=== PATIENT | male | born 1945 | race Caucasian/White ===

== ENCOUNTER 2018-02-13 09:59 | Emergency (ER) | payer OTHER ==
[2018-02-13] MEDS ORDERED: NA CHLORIDE 0.9% 1,000 ML ONE (10:34)
[2018-02-13 11:00] LABS: Absolute Lymphocytes (CBC) 1.5 K/uL (0.7-4.9); Absolute Monocytes 0.6 K/uL (0.1-1.3); Absolute Neutrophil 5.6 K/uL (1.8-8.0); Eosinophils % 0.6 % (0-4.4); Hematocrit 33.8 % (39.6-49.0); Lymphocytes % 19.5 % (15.3-44.8); MCV 90.4 fL (80-100); MPV 6.6 fL (7.6-11.3); Monocytes % 7.8 % (3.3-12.3); RBC Red Blood Cell Count 3.74 M/uL (4.33-5.43)
[2018-02-13 11:01] LABS: Protime INR 1.34
--- NOTE | 2018-02-13 11:07 | RAD REPORT ---
EXAM DESCRIPTION: RAD - Chest Single View - 02/13/2018 10:51 am CLINICAL HISTORY: CHEST PAIN Chest pain. COMPARISON: Chest Single View dated 02/16/2016; CHEST SINGLE VIEW dated 07/28/2014; CHEST SINGLE VIEW dated 07/12/2014; CHEST SINGLE VIEW dated 04/29/2013 FINDINGS: Portable technique limits examination quality. A large opacity present left upper lobe which may represent a mass or infiltrate. The heart is normal in size. No displaced fractures.CT chest recommended.
[2018-02-13 11:14] LABS: ALT/SGPT 23 U/L (12-78); AST/SGOT 26 U/L (15-37); Albumin 2.5 g/dL (3.4-5.0); Alkaline Phosphatase 117 U/L (45-117); BUN Blood Urea Nitrogen 23 mg/dL (7-18); Bicarbonate 27 mmol/L (21-32); Bilirubin Direct 0.3 mg/dL (0-0.2); Bilirubin Total 0.6 mg/dL (0.2-1.0); Glucose Level 79 mg/dL (74-106); Lipase 66 U/L (73-393); Magnesium 2.5 mg/dL (1.8-2.4); NT PRO-BNP 496 pg/mL (<125); Potassium 4.3 mmol/L (3.5-5.1); Protein, Total 7.4 g/dL (6.4-8.2); Sodium Level 139 mmol/L (136-145); Troponin (Emerg Dept Use Only) < 0.02 ng/mL (0.0-0.045)
[2018-02-13 11:41] LABS: Anisocytosis 2+; Blood Morphology Comment NOTED (NOT SEEN); Platelet Estimate ADEQ; Polychromasia SLIGHT; Urine White Blood Cell Casts OK
--- NOTE | 2018-02-13 12:03 | RAD REPORT ---
EXAM DESCRIPTION: CT - Chest Abd Pelvis Wo Con - 02/13/2018 11:37 am CLINICAL HISTORY: Chest and abdomen pain. Abdominal pain, IV only COMPARISON: Chest Single View dated 02/13/2018; Abdomen Pelvis Wo Contrast dated 02/16/2016; Chest Single View dated 02/16/2016 TECHNIQUE: A limited noncontrast study was performed. All CT scans are performed using dose optimization technique as appropriate and may include automated exposure control or mA/KV adjustment according to patient size. FINDINGS: Emphysematous changes are present throughout the lungs. Airspace consolidation is seen in the posterior left upper lobe with visible air bronchograms. A rounded masslike component is seen in the superior segment left lower lobe without air bronchograms measuring 3.4 x 3.0 cm.Enlarged adenopa thy is seen in the AP window measuring 2.3 cm 1.6 cm. Pretracheal adenopathy is present measuring 11 mm and subcarinal adenopathy is present measuring 15 mm.No pleural or pericardial effusion. Limited noncontrast assessment of the liver, spleen, adrenal glands and kidneys show no acute process . Pancreatic atrophy is present without ductal dilatation. No bowel obstruction, free air, free fluid or abscess. Normal appendix. Mild aortic atherosclerosis. Moderate stool is present in the rectal vault. No pathologic lymphadenopathy in the abdomen or pelvis . Lower lumbar degenerative changes are present. IMPRESSION: Airspace opacity in the left upper lobe is noted with left sided mediastinal adenopathy. Both neoplastic etiology as well as infection/ pneumonia is a possibility. Consider bronchoscopy for further assessment of these findings. No acute finding is demonstrated in the abdomen or pelvis.
--- NOTE | 2018-02-13 14:27 | EKG ---
Test Date: 2018-02-13 Test Time: 10:55:17 Developer Automatic: JACQUELYN MEASUREMENT RESULTS: Intervals: Rate: 66 VA: 152 QRSD: 104 QT: 432 QTc: 452 [place]: P: 73 VA: 152 QRS: 3 T: 75 INTERPRETIVE STATEMENTS: Sinus rhythm with premature atrial complexes in a pattern of bigeminy Otherwise normal ECG Compared to ECG 02/16/2016 08:08:24 Atrial premature complex(es) now present Electronically Signed On 02-13-18 14:26:13 CDT by Maxi Wade
--- NOTE | 2018-02-13 15:13 | EDPHYS ---
Physician Documentation [facility] Name: Farhat Burch Sr Age: 73 yrs Sex: Male : 1945 Arrival Date: 02/13/2018 Time: 10:04 Bed 18 Private MD: BRIDGER [facility] ED Physician Reinaldo Hutchins HPI: 02/13 10:47 This 73 yrs old Male presents to ER via Wheelchair with complaints of Blood jmm Pressure Problem. 10:47 This is a 73 year old amle with a history of DM that presents to the ED with 2 months jmm of generalized weakness, epigastric abdominal pain. Patient was seen at [facility]. Patient states they had concerns he was dehydrated. . 10:47 Onset: The symptoms/episode began/occurred gradually. jmm 10:47 Patient denies chest pain or shortness of breath. . jmm Historical: - Allergies: 10:19 No Known Allergies; aj - PMHx: 10:19 Anxiety; Depression; Diabetes - IDDM; Hyperlipidemia; Hypertension; resolved; neely aj esophagus; COPD; - PSHx: 10:19 nail surgery; aj - Immunization history:: Adult Immunizations up to date. - Social history:: Smoking status: Patient uses tobacco products, smokes one pack cigarettes per day. Patient/guardian denies using alcohol. - Ebola Screening: : Patient negative for fever greater than or equal to 101.5 degrees Fahrenheit, and additional compatible Ebola Virus Disease symptoms Patient denies exposure to infectious person Patient denies travel to an Ebola-affected area in the 21 days before illness onset No symptoms or risks identified at this time. ROS: 10:47 Cardiovascular: Negative for chest pain, palpitations, and edema, Respiratory: Negative jmm for shortness of breath, cough, wheezing, and pleuritic chest pain. 10:47 Back: Negative for injury and pain, MS/Extremity: Negative for injury and deformity, Skin: Negative for injury, rash, and discoloration, Neuro: Negative for headache, weakness, numbness, tingling, and seizure. 10:47 Constitutional: Positive for malaise. 10:47 Abdomen/GI: Positive for abdominal pain. 10:47 All other systems are negative. Exam: 10:47 Head/Face: atraumatic. Eyes: EOMI, no conjunctival erythema appreciated ENT: Moist jmm Mucus Membranes Neck: Trachea midline, Supple Chest/axilla: Normal chest wall appearance and motion. Cardiovascular: Regular rate and rhythm. No edema appreciated Respiratory: Normal respirations, no respiratory distress appreciated 10:47 Constitutional: The patient appears in no acute distress, alert, awake. 10:47 Abdomen/GI: Inspection: abdomen appears normal, Bowel sounds: normal, Palpation: soft, mild abdominal tenderness, in the right upper quadrant and left upper quadrant. 10:47 Back: ROM is normal. 10:47 Musculoskeletal/extremity: ROM: intact in all extremities. 10:47 Skin: Appearance: Color: normal in color. 10:47 Neuro: Orientation: is normal, Mentation: is normal, Memory: is normal. 10:47 Psych: Behavior/mood is pleasant, cooperative. Vital Signs: 10:19 BP 87 / 62; Pulse 81; Resp 16; Temp 97.8; Pulse Ox 98% on R/A; Weight 63.96 kg; Height aj 6 ft. 0 in. (182.88 cm); 10:30 BP 95 / 74; Pulse 83; Resp 18; Pulse Ox 100% on R/A; em 11:06 BP 102 / 79; Pulse 68; Resp 16; Pulse Ox 97% on R/A; em 12:05 BP 102 / 70; Pulse 70; Resp 16; Pulse Ox 99% on R/A; em 13:00 BP 103 / 76; Pulse 60; Resp 18; Pulse Ox 95% on R/A; em 14:21 BP 99 / 62; Pulse 74; Resp 15; Pulse Ox 99% on R/A; em 15:25 BP 100 / 64; Pulse 79; Resp 16; Pulse Ox 100% on R/A; iw 16:10 BP 108 / 74; Pulse 64; Resp 14; Temp 98.3(O); Pulse Ox 100% on R/A; Pain 4/10; iw 10:19 Body Mass Index 19.12 (63.96 kg, 182.88 cm) aj MDM: 10:24 Patient medically screened. lorrie 12:31 Data reviewed: vital signs, nurses notes. Counseling: I had a detailed discussion with lorrie the patient and/or guardian regarding: the historical points, exam findings, and any diagnostic results supporting the discharge/admit diagnosis. 15:10 Data reviewed: lab test result(s), radiologic studies, CT scan, plain films. ED course: lorrie I discussed the patient with [facility] whom accepted admission. . 02/13 10:25 Order name: Basic Metabolic Panel [facility] 02/13 10:25 Order name: CBC with Diff [facility] 02/13 10:25 Order name: LFT's [facility] 02/13 10:25 Order name: Magnesium [facility] 02/13 10:25 Order name: NT PRO-BNP [facility] 02/13 10:25 Order name: PT-INR; Complete Time: 11:29 [facility] 02/13 10:25 Order name: Troponin (emerg Dept Use Only); Complete Time: 11:29 [facility] 02/13 10:25 Order name: Lipase; Complete Time: 11:29 [facility] 02/13 10:25 Order name: Blood Culture Adult (2) [facility] 02/13 10:25 Order name: Procalcitonin; Complete Time: 11:36 [facility] 02/13 10:25 Order name: Lactate; Complete Time: 11:14 [facility] 02/13 10:26 Order name: Basic Metabolic Panel; Complete Time: 11:29 [facility] 02/13 10:26 Order name: CBC with Automated Diff; Complete Time: 12:02 [facility] 02/13 10:26 Order name: Liver (Hepatic) Function; Complete Time: 11:29 [facility] 02/13 10:25 Order name: XRAY Chest (1 view); Complete Time: 11:13 [facility] 02/13 10:25 Order name: EKG; Complete Time: 10:26 [facility] 02/13 10:25 Order name: Cardiac monitoring; Complete Time: 10:48 [facility] 02/13 10:25 Order name: EKG - Nurse/Tech; Complete Time: 10:48 [facility] 02/13 10:25 Order name: IV Saline Lock; Complete Time: 10:48 [facility] 02/13 10:25 Order name: Labs collected and sent; Complete Time: 10:48 [facility] 02/13 10:26 Order name: Magnesium; Complete Time: 11:29 [facility] 02/13 10:26 Order name: NT PRO-BNP; Complete Time: 11:29 [facility] 02/13 11:15 Order name: CBC Smear Scan; Complete Time: 12:02 [facility] 02/13 11:26 Order name: Chest Abd Pelvis Wo Con; Complete Time: 12:04 [facility] 02/13 14:40 Order name: Diet Regular; Complete Time: 14:40 em 02/13 10:25 Order name: O2 Per Protocol; Complete Time: 10:48 [facility] 02/13 10:25 Order name: O2 Sat Monitoring; Complete Time: 10:48 [facility] Administered Medications: 10:48 Drug: NS 0.9% 1000 ml Route: IV; Rate: 1 bolus; Site: right antecubital; em 12:30 Follow up: IV Status: Completed infusion; IV Intake: 1000ml iw 15:39 Drug: NS 0.9% 500 ml Route: IV; Rate: 150 ml/hr; Site: right antecubital; em 16:58 Follow up: IV Status: Infusion continued upon transfer; IV Intake: 50ml em 16:55 Drug: Tylenol 650 mg Route: PO; em 16:58 Follow up: Response: Medication administered at discharge. em Disposition: 02/14 13:13 Co-signature as Attending Physician, Reinaldo Hutchins MD I agree with the assessment and kdr plan of care. Disposition: 02/13/18 15:11 Transfer ordered to [facility]. Diagnosis are Lung Mass, Hypotension. - Reason for transfer: Higher level of care. - Accepting physician is [facility]. - Condition is Stable. - Problem is new. - Symptoms have worsened. Signatures: Dispatcher [employer] Radha Howell, RN RN Reinaldo Lopez MD MD kdr Mickail, Joel, PA PA [facility] Troy Trujillo, CURRICULUM SUPERVISOR CURRICULUM SUPERVISOR Renetta Duval RN iw Corrections: (The following items were deleted from the chart) 02/13 11:26 10:41 Abdomen Pelvis W Con+CT.RAD.BRZ ordered. [facility] 11:26 11:14 Chest For PE Angio+CT.RAD.BRZ ordered. [facility] 16:59 15:11 02/13/2018 15:11 Transfer ordered to [facility]. Diagnosis is Lung Mass; Hypotension. Reason for transfer: Higher level of care. Accepting physician is [facility]. Condition is Stable. Problem is new. Symptoms have worsened. [facility]
--- NOTE | 2018-02-13 15:13 | ER ---
Nurse's Notes [facility] Name: Farhat Burch Sr Age: 73 yrs Sex: Male : 1945 Arrival Date: 02/13/2018 Time: 10:04 Bed 18 Private MD: BRIDGER SPARKS Diagnosis: Lung Mass;Hypotension Presentation: 02/13 10:17 Presenting complaint: Patient states: Recent 40 lb weight loss, anorexia, dehydration, aj weakness for 1 month. Transition of care: patient was not received from another setting of care. Onset of symptoms was January 17, 2018. Risk Assessment: Do you want to hurt yourself or someone else? Patient reports no desire to harm self or others. Initial Sepsis Screen: Does the patient meet any 2 criteria? No. Patient's initial sepsis screen is negative. Does the patient have a suspected source of infection? No. Patient's initial sepsis screen is negative. Care prior to arrival: None. 10:17 Method Of Arrival: Wheelchair aj 10:17 Acuity: JESSE 2 aj Triage Assessment: 10:19 General: Appears in no apparent distress. ill, slender, Behavior is calm, cooperative, aj appropriate for age. Pain: Denies pain. Neuro: Level of Consciousness is awake, alert, obeys commands, Oriented to person, place, time, situation, Appropriate for age. Respiratory: Airway is patent Respiratory effort is even, unlabored, Respiratory pattern is regular, symmetrical. GI: Reports anorexia. Derm: Skin is thin, with poor turgor Skin is pink, warm \T\ dry. normal. Historical: - Allergies: 10:19 No Known Allergies; aj - PMHx: 10:19 Anxiety; Depression; Diabetes - IDDM; Hyperlipidemia; Hypertension; resolved; neely aj esophagus; COPD; - PSHx: 10:19 nail surgery; aj - Immunization history:: Adult Immunizations up to date. - Social history:: Smoking status: Patient uses tobacco products, smokes one pack cigarettes per day. Patient/guardian denies using alcohol. - Ebola Screening: : Patient negative for fever greater than or equal to 101.5 degrees Fahrenheit, and additional compatible Ebola Virus Disease symptoms Patient denies exposure to infectious person Patient denies travel to an Ebola-affected area in the 21 days before illness onset No symptoms or risks identified at this time. Screenin:04 Abuse screen: Denies threats or abuse. Nutritional screening: No deficits noted. em Tuberculosis screening: Possible symptoms: recent night sweats, unexplained weight loss. Fall Risk None identified. Assessment: 10:20 General: Appears in no apparent distress. comfortable, ill, slender, Behavior is calm, em cooperative, Reports chills for cold sweats weight loss for 2 months, c/o of lower abd pain with nausea. Pain: Complains of pain in right lower quadrant and left lower quadrant. Neuro: Level of Consciousness is awake, alert, obeys commands, Oriented to person, place, time, situation. Cardiovascular: Denies chest pain, shortness of breath, Capillary refill < 3 seconds Patient's skin is warm and dry. Respiratory: Airway is patent Respiratory effort is even, unlabored, Respiratory pattern is regular, symmetrical, Breath sounds are clear bilaterally. GI: Abdomen is flat, Abd is soft X 4 quads Abdomen is tender to palpation in right lower quadrant and left lower quadrant. : No signs and/or symptoms were reported regarding the genitourinary system. EENT: Oral mucosa is dry. Derm: Skin is intact, is thin, Skin is dry, Skin is normal. Musculoskeletal: Range of motion: intact in all extremities. 10:30 General: The previous assessment is accurate, call light remains within reach. . ss 11:10 Reassessment: Patient appears in no apparent distress at this time. Patient and/or em family updated on plan of care and expected duration. Pain level reassessed. Patient is alert, oriented x 3, equal unlabored respirations, skin warm/dry/pink. 12:04 Reassessment: Patient appears in no apparent distress at this time. Patient and/or em family updated on plan of care and expected duration. Pain level reassessed. Patient is alert, oriented x 3, equal unlabored respirations, skin warm/dry/pink. 13:00 Reassessment: Patient appears in no apparent distress at this time. Patient and/or em family updated on plan of care and expected duration. Pain level reassessed. Patient is alert, oriented x 3, equal unlabored respirations, skin warm/dry/pink. 14:20 Reassessment: Patient appears in no apparent distress at this time. Patient and/or em family updated on plan of care and expected duration. Pain level reassessed. Patient is alert, oriented x 3, equal unlabored respirations, skin warm/dry/pink. 14:40 Reassessment: Patient appears in no apparent distress at this time. Patient and/or iw family updated on plan of care and expected duration. Pain level reassessed. Patient is alert, oriented x 3, equal unlabored respirations, skin warm/dry/pink. c/o being hungry, lunch tray ordered. 15:59 Reassessment: Patient appears in no apparent distress at this time. Patient and/or iw family updated on plan of care and expected duration. Pain level reassessed. Patient is alert, oriented x 3, equal unlabored respirations, skin warm/dry/pink. 16:10 Reassessment: Patient appears in no apparent distress at this time. report called to mayito Caba RN at [facility], pending transportation. 16:58 Reassessment: Patient appears in no apparent distress at this time. report given to [facility], will transport pt to [facility]. Vital Signs: 10:19 BP 87 / 62; Pulse 81; Resp 16; Temp 97.8; Pulse Ox 98% on R/A; Weight 63.96 kg; Height aj 6 ft. 0 in. (182.88 cm); 10:30 BP 95 / 74; Pulse 83; Resp 18; Pulse Ox 100% on R/A; em 11:06 BP 102 / 79; Pulse 68; Resp 16; Pulse Ox 97% on R/A; em 12:05 BP 102 / 70; Pulse 70; Resp 16; Pulse Ox 99% on R/A; em 13:00 BP 103 / 76; Pulse 60; Resp 18; Pulse Ox 95% on R/A; em 14:21 BP 99 / 62; Pulse 74; Resp 15; Pulse Ox 99% on R/A; em 15:25 BP 100 / 64; Pulse 79; Resp 16; Pulse Ox 100% on R/A; iw 16:10 BP 108 / 74; Pulse 64; Resp 14; Temp 98.3(O); Pulse Ox 100% on R/A; Pain 4/10; iw 10:19 Body Mass Index 19.12 (63.96 kg, 182.88 cm) ED Course: 10:04 Patient arrived in ED. mr 10:05 [place], [facility] is Private Physician. mr 10:18 Triage completed. aj 10:19 Arm band placed on left wrist. Patient placed in an exam room. aj 10:24 Enoc Flowers PA is PHCP. jmm 10:24 Reinaldo Hutchins MD is Attending Physician. jmm 10:45 Inserted saline lock: 20 gauge in right antecubital area, using aseptic technique. em Blood collected. 10:45 Initial lab(s) drawn, by me, sent to lab. First set of blood cultures drawn by me. em 10:47 Troy Trujillo LVN is Primary Nurse. em 10:49 X-ray completed. Portable x-ray completed in exam room. Patient tolerated procedure ml well. 10:51 XRAY Chest (1 view) In Process Unspecified. EDMS 11:00 EKG done, by ED staff, reviewed by Enoc PIPER. jb1 11:04 Patient has correct armband on for positive identification. Placed in gown. Bed in low em position. Call light in reach. Side rails up X2. Adult w/ patient. 11:33 CT completed. Patient tolerated procedure well. Patient moved to CT via stretcher. sj Patient moved back from CT. 11:38 Chest Abd Pelvis Wo Con In Process Unspecified. EDMS 12:36 initiated a transfer with Graciela Beverly at the [facility]. She asked that we fax the eb clinical's over and they would review the patients chart for transfer. 16:00 No provider procedures requiring assistance completed. iw 16:33 Patient transferred, IV remains in place. iw Administered Medications: 10:48 Drug: NS 0.9% 1000 ml Route: IV; Rate: 1 bolus; Site: right antecubital; em 12:30 Follow up: IV Status: Completed infusion; IV Intake: 1000ml iw 15:39 Drug: NS 0.9% 500 ml Route: IV; Rate: 150 ml/hr; Site: right antecubital; em 16:58 Follow up: IV Status: Infusion continued upon transfer; IV Intake: 50ml em 16:55 Drug: Tylenol 650 mg Route: PO; em 16:58 Follow up: Response: Medication administered at discharge. em Intake: 12:30 IV: 1000ml; Total: 1000ml. iw 16:58 IV: 50ml; Total: 1050ml. em Outcome: 15:11 ER care complete, transfer ordered by . [facility] 16:33 Transferred by ground EMS to [facility] Transfer form completed. iw X-rays sent w/ patient. 16:33 Condition: good 16:33 Instructed on the need for transfer, Demonstrated understanding of instructions. 16:59 Patient left the ED. em Signatures: Dispatcher [employer] Danny Young [email or web address] Radha Alfaro, RN RN Enoc Garibay PA PA jmm Rivera, Suad mr Simpson, Troy Sanchez, SHAKER OUT SHAKER OUT em Renetta Beard, Socorro Bonilla RN, Shelby, RN RN ss Botello, Elizabeth eb
[2018-02-13] MEDS ORDERED: NA CHLORIDE 0.9% 500 ML ONE (15:38)
[2018-02-13] MEDS ORDERED: ACETAMINOPHEN 325 MG TABLET ONE (16:55)
[2018-02-13 17:18] VITALS: O2SAT 100
[2018-02-13 17:19] VITALS: BP 108/74; TEMP 98.3
== END 2018-02-13 16:59 ==
LOC: ER 09:59
DX: R91.8 Other nonspecific abnormal finding of lung field (principal); I95.9 Hypotension, unspecified; I10 Essential (primary) hypertension; F17.210 Nicotine dependence, cigarettes, uncomplicated
CPT/HCPCS: 36415; 71045; 71250; 74176; 80048; 80076; 83605; 83690; 83735; 83880; 84145; 84484; 85025; 85610; 87040; 93005; 96360; 96361; 99285; J7030

== ENCOUNTER 2019-05-13 13:16 | Emergency (ER) | payer OTHER ==
[2019-05-13 14:03] LABS: Absolute Lymphocytes (CBC) 1.2 K/uL (0.7-4.9); Basophils % 0.7 % (0-1.3); Hematocrit 33.1 % (39.6-49.0); Lymphocytes % 12.6 % (15.3-44.8); RBC Red Blood Cell Count 3.68 M/uL (4.33-5.43)
[2019-05-13 14:04] LABS: Protime INR 1.19
--- NOTE | 2019-05-13 14:18 | RAD REPORT ---
EXAM DESCRIPTION: RAD - Chest Single View - 05/13/2019 2:01 pm CLINICAL HISTORY: Right upper quadrant pain, right-sided chest pain COMPARISON: February 2018, February 2016 TECHNIQUE: AP portable chest image was obtained 1356 hours . FINDINGS: Patchy interstitial and alveolar opacities are present in the right lung base. Patient has elevated right hemidiaphragm which which has shown variable presentation over the multiple studies. Left lung field is clear. Upper right lung field is clear of acute finding. . Heart and vasculature a re normal. No measurable pleural effusion and no pneumothorax. No acute bony abnormality seen. No acu te aortic findings suspected. IMPRESSION: Suspected early right lung base pneumonia.
[2019-05-13 14:22] LABS: ALT/SGPT 18 U/L (12-78); AST/SGOT 12 U/L (15-37); Albumin 3.1 g/dL (3.4-5.0); Alkaline Phosphatase 78 U/L (45-117); BUN Blood Urea Nitrogen 27 mg/dL (7-18); Bicarbonate 29 mmol/L (21-32); Bilirubin Direct 0.2 mg/dL (0-0.2); Bilirubin Total 0.6 mg/dL (0.2-1.0); Glucose Level 151 mg/dL (74-106); Magnesium 2.3 mg/dL (1.8-2.4); NT PRO-BNP 1005 pg/mL (<125); Potassium 4.5 mmol/L (3.5-5.1); Protein, Total 6.8 g/dL (6.4-8.2); Sodium Level 139 mmol/L (136-145); Troponin (Emerg Dept Use Only) < 0.02 ng/mL (0.0-0.045)
[2019-05-13 14:25] LABS: Anisocytosis 3+; Blood Morphology Comment NOTED (NOT SEEN); Ovalocytes 1+; Platelet Estimate ADEQ; Spherocyte 1+; Urine White Blood Cell Casts OK
--- NOTE | 2019-05-13 15:33 | RAD REPORT ---
EXAM DESCRIPTION: US - Abdomen Exam Limited - 05/13/2019 2:36 pm CLINICAL HISTORY: RUQ pain COMPARISON: No comparisons FINDINGS: The gallbladder demonstrates no gallstones. No pericholecystic fluid or gallbladder wall t hickening. The common bile duct is normal measuring 4 mm. The liver demonstrates no findings of intrahepatic biliary dilatation. IMPRESSION: Unremarkable examination.
[2019-05-13 15:47] LABS: Urine Bacteria <20 /HPF (NONE SEEN); Urine Culture Reflex Order NOT NEEDED; Urine Mucus 1+ /HPF (NONE SEEN); Urine RBC <5 /HPF (NONE SEEN)
[2019-05-13 15:52] LABS: Urine Blood NEGATIVE (NEG); Urine Glucose NEGATIVE (NEG); Urine Protein NEGATIVE (NEG); Urine Specific Gravity 1.025 (1.005-1.030)
[2019-05-13] MEDS ORDERED: ALBUTEROL 2.5 MG/3 ML NEB SOL ONE (15:54)
[2019-05-13] MEDS ORDERED: IPRATROPIUM BROM 0.5MG/2.5ML ONE (15:54)
[2019-05-13] MEDS ORDERED: KETOROLAC 30 MG/ML INJ ONE (15:54)
--- NOTE | 2019-05-13 17:02 | ER ---
Nurse's Notes [facility] Name: Farhat Burch Sr Age: 74 yrs Sex: Male : 1945 Arrival Date: 05/13/2019 Time: 13:20 Bed 30 Private MD: Diagnosis: Pneumonia due to other specified bacteria Presentation: 05/13 13:20 Presenting complaint: EMS states: RUQ pain that began yesterday. Pt denies N/V/D. aa5 Transition of care: patient was not received from another setting of care. Onset of symptoms was May 2019. Risk Assessment: Do you want to hurt yourself or someone else? Patient reports no desire to harm self or others. Initial Sepsis Screen: Does the patient meet any 2 criteria? No. Patient's initial sepsis screen is negative. Does the patient have a suspected source of infection? No. Patient's initial sepsis screen is negative. Care prior to arrival: None. 13:20 Acuity: JESSE 3 aa5 13:20 Method Of Arrival: EMS: [facility] aa5 Historical: - Allergies: 13:28 No Known Allergies; aa5 - Home Meds: 13:28 Home O2 at night [Active]; aspirin 81 mg Oral chew 1 tab once daily [Active]; aa5 budesonide inhalation inhalation [Active]; cyanocobalamin (vitamin B-12) 1,000 mcg oral tab daily [Active]; ferrous gluconate 324 mg (36 mg iron) Oral tab twice a day [Active]; folic acid 1 mg Oral tab 1 tab once daily [Active]; docusate sodium 100 mg Oral cap 2 caps once daily [Active]; glipizide 10 mg Oral tab 2 times per day [Active]; hydroxyzine HCl 25 mg Oral tab twice a day [Active]; Insulin Glargine Sub-Q [Active]; lisinopril 2.5 mg Oral tab once daily [Active]; omeprazole 20 mg Oral cpDR 2 caps once daily [Active]; oxybutynin chloride 5 mg oral tr24 3 times a day for bladder [Active]; simvastatin 40 mg Oral tab once daily [Active]; tiotropium bromide inhalation inhalation [Active]; trazodone 50 mg Oral tab at bedtime [Active]; - PMHx: 13:28 Anxiety; neely esophagus; COPD; Depression; Diabetes - IDDM; Hyperlipidemia; Anemia; aa5 - PSHx: 13:28 Heart stents; aa5 - Immunization history:: Flu vaccine status is unknown. - Social history:: Smoking status: Patient uses tobacco products, smokes one pack cigarettes per day. - Ebola Screening: : No symptoms or risks identified at this time. Screenin:30 Abuse screen: Denies threats or abuse. Nutritional screening: No deficits noted. aa5 Tuberculosis screening: No symptoms or risk factors identified. Fall Risk None identified. Assessment: 13:20 General: Appears comfortable, Behavior is calm, cooperative. Pain: Complains of pain in aa5 right upper quadrant Pain does not radiate. Pain currently is 5 out of 10 on a pain scale. Quality of pain is described as sharp, Pain began 1 day ago. Is intermittent. Neuro: Level of Consciousness is awake, alert, obeys commands, Oriented to person, place, time, situation. Cardiovascular: Heart tones S1 S2 present Rhythm is regular. Respiratory: Airway is patent Respiratory effort is even, unlabored, Respiratory pattern is regular, symmetrical, Breath sounds are diminished bilaterally. Denies cough, shortness of breath. GI: Abdomen is flat, non-distended, Bowel sounds present X 4 quads. Abd is soft and non tender X 4 quads. Patient currently denies diarrhea, nausea, vomiting. : No signs and/or symptoms were reported regarding the genitourinary system. EENT: No signs and/or symptoms were reported regarding the EENT system. Derm: Skin is pink, warm \\T\\ dry. Musculoskeletal: Range of motion: intact in all extremities. 13:54 Reassessment: Pt states "I've also been having black stools". PA was notified. . aa5 13:54 Reassessment: Patient is alert, oriented x 3, equal unlabored respirations, skin aa5 warm/dry/pink. 14:30 Reassessment: Pt resting in bed with eyes closed, respirations even and unlabored, skin aa5 is pink/warm/dry. . 15:52 Reassessment: Patient is alert, oriented x 3, equal unlabored respirations, skin aa5 warm/dry/pink. 15:52 General: Appears comfortable. Pain: Pain currently is 5 out of 10 on a pain scale. aa5 16:10 Reassessment: Patient is alert, oriented x 3, equal unlabored respirations, skin aa5 warm/dry/pink. Pt given cup of coffee per PA. . 17:10 Reassessment: Patient is alert, oriented x 3, equal unlabored respirations, skin aa5 warm/dry/pink. Awaiting ride home for d/c. . 18:10 Reassessment: Patient is alert, oriented x 3, equal unlabored respirations, skin aa5 warm/dry/pink. Vital Signs: 13:22 BP 109 / 66; Pulse 87; Resp 19; Temp 98.1(O); Pulse Ox 92% on R/A; lt1 14:30 BP 117 / 71; Pulse 76; Resp 18 S; Pulse Ox 96% on 2 lpm NC; aa5 15:30 BP 114 / 71; Pulse 74; Resp 18 S; Pulse Ox 96% on 2 lpm NC; aa5 16:30 BP 127 / 79; Pulse 81; Resp 16 S; Pulse Ox 96% on 2 lpm NC; aa5 17:10 BP 123 / 73; Pulse 82; Resp 16 S; Temp 98.0(O); Pulse Ox 92% on R/A; aa5 ED Course: 13:20 Patient arrived in ED. iw 13:20 Chula Garcia, RN is Primary Nurse. aa5 13:21 Triage completed. aa5 13:21 Arm band placed on. aa5 13:21 Patient has correct armband on for positive identification. Bed in low position. Call aa5 light in reach. Side rails up X2. blind cleaner on. Pulse ox on. NIBP on. 13:33 Dhruv Armstrong PA is PHCP. cp 13:33 Dhruv Colon MD is Attending Physician. cp 13:53 Initial lab(s) drawn, by oh, sent to lab. Inserted saline lock: 20 gauge in right lt1 antecubital area, using aseptic technique. 14:02 XRAY Chest (1 view) In Process Unspecified. EDMS 14:04 X-ray completed. Portable x-ray completed in exam room. Patient tolerated procedure jb2 well. 14:24 EKG done, by lab technologist. reviewed by Dhruv PIPER. tc 14:38 US Abdomen Limited In Process Unspecified. EDMS 14:51 Urine Microscopic Only Sent. lt1 18:10 No provider procedures requiring assistance completed. IV discontinued, intact, aa5 bleeding controlled, No redness/swelling at site. Pressure dressing applied. Administered Medications: 15:52 Drug: Albuterol 2.5 mg Route: Inhalation; aa5 15:52 Drug: AtroVENT Aerosol 0.5 mg Route: Inhalation; aa5 15:52 Drug: TORadol - Ketorolac 15 mg Route: IVP; Site: right antecubital; aa5 16:00 Follow up: Response: No adverse reaction aa5 17:10 Drug: Zithromax 500 mg Route: PO; aa5 18:10 Follow up: Response: No adverse reaction aa5 17:10 Drug: Rocephin - (cefTRIAXone) 1 grams {Note: given slow IVP per pharmacy at this time. aa5 .} Route: IVPB; Infused Over: 30 mins; Site: right antecubital; 17:20 Follow up: Response: No adverse reaction aa5 Point of Care Testing: Blood Glucose: 13:46 Blood Glucose: 148 mg/dL; aa5 Ranges: Outcome: 17:02 Discharge ordered by MD. cp 18:10 Discharged to home via wheelchair, with family. aa5 18:10 Condition: stable 18:10 Discharge instructions given to patient, Instructed on discharge instructions, follow up and referral plans. medication usage, Demonstrated understanding of instructions, follow-up care, medications, Prescriptions given X 2. 18:14 Patient left the ED. aa5 Signatures: Dispatcher [employer] EDMS Vega Pascual jb2 Renetta Beard RN RN iw Calderon, Audri, RN RN aa5 Yenny Santoyo, air intercept controller EKG Ttc Dhruv Armstrong PA PA cp Tran, [facility]
--- NOTE | 2019-05-13 17:02 | EDPHYS ---
Physician Documentation [facility] Name: Farhat Burch Sr Age: 74 yrs Sex: Male : 1945 Arrival Date: 05/13/2019 Time: 13:20 Bed 30 Private MD: Dhruv Ugalde HPI: 05/13 13:50 This 74 yrs old Male presents to ER via EMS with complaints of Abdominal Pain.cp 13:50 The patient or guardian reports chest pain that is located primarily in the right cp lateral anterior chest and right lateral posterior chest. Onset: today. 13:50 Onset: The symptoms/episode began/occurred today. The pain does not radiate. Associated cp signs and symptoms: Pertinent positives: cough, Pertinent negatives: constipation, diarrhea, fever, shortness of breath, vomiting. The symptoms are described as constant. Historical: - Allergies: 13: No Known Allergies; aa5 - Home Meds: 13:28 Home O2 at night [Active]; aspirin 81 mg Oral chew 1 tab once daily [Active]; aa5 budesonide inhalation inhalation [Active]; cyanocobalamin (vitamin B-12) 1,000 mcg oral tab daily [Active]; ferrous gluconate 324 mg (36 mg iron) Oral tab twice a day [Active]; folic acid 1 mg Oral tab 1 tab once daily [Active]; docusate sodium 100 mg Oral cap 2 caps once daily [Active]; glipizide 10 mg Oral tab 2 times per day [Active]; hydroxyzine HCl 25 mg Oral tab twice a day [Active]; Insulin Glargine Sub-Q [Active]; lisinopril 2.5 mg Oral tab once daily [Active]; omeprazole 20 mg Oral cpDR 2 caps once daily [Active]; oxybutynin chloride 5 mg oral tr24 3 times a day for bladder [Active]; simvastatin 40 mg Oral tab once daily [Active]; tiotropium bromide inhalation inhalation [Active]; trazodone 50 mg Oral tab at bedtime [Active]; - PMHx: 13:28 Anxiety; neely esophagus; COPD; Depression; Diabetes - IDDM; Hyperlipidemia; Anemia; aa5 - PSHx: 13:28 Heart stents; aa5 - Immunization history:: Flu vaccine status is unknown. - Social history:: Smoking status: Patient uses tobacco products, smokes one pack cigarettes per day. - Ebola Screening: : No symptoms or risks identified at this time. ROS: 13:55 Constitutional: Negative for body aches, chills, fever, poor PO intake. cp 13:55 Eyes: Negative for injury, pain, redness, and discharge. cp 13:55 ENT: Negative for drainage from ear(s), ear pain, sore throat, difficulty swallowing, difficulty handling secretions. 13:55 Neck: Negative for pain with movement, pain at rest, stiffness. 13:55 Cardiovascular: Positive for chest pain, of the right lateral posterior chest and right lateral anterior chest, Negative for edema. 13:55 Respiratory: Positive for cough, with no reported sputum, Negative for hemoptysis, shortness of breath, wheezing. 13:55 Abdomen/GI: Positive for abdominal pain, of the right upper lateral abdomen, Negative for vomiting, diarrhea, constipation, anorexia. 13:55 Back: Negative for radiated pain. 13:55 : Negative for urinary symptoms. 13:55 Skin: Negative for rash. 13:55 Neuro: Negative for altered mental status, dizziness, headache, syncope, weakness. 13:55 All other systems are negative. Exam: 14:00 Constitutional: The patient appears in no acute distress, alert, awake, cp non-diaphoretic, non-toxic, well developed, well nourished. 14:00 Head/Face: Normocephalic, atraumatic. cp 14:00 Eyes: Periorbital structures: appear normal, Conjunctiva: normal, no exudate, no injection, Sclera: no appreciated abnormality, Lids and lashes: appear normal, bilaterally. 14:00 ENT: External ear(s): are unremarkable, Nose: is normal, Mouth: is normal, Posterior pharynx: is normal, airway is patent, no erythema, no exudate. 14:00 Chest/axilla: Inspection: normal, Palpation: is normal, no crepitus, no tenderness. 14:00 Cardiovascular: Rate: normal, Rhythm: regular, Edema: is not appreciated, JVD: is not appreciated. 14:00 Respiratory: the patient does not display signs of respiratory distress, Respirations: normal, no use of accessory muscles, no retractions, no splinting, no tachypnea, labored breathing, is not present, Breath sounds: decreased breath sounds, that are mild, are located in both bases, rhonchi, are not appreciated, wheezing: is not appreciated. 14:00 Abdomen/GI: Inspection: abdomen appears normal, Bowel sounds: active, all quadrants, Palpation: soft, in all quadrants, mild abdominal tenderness, in the upper anterior aspect of right lateral abdomen and upper posterior aspect of right lateral abdomen, rebound tenderness, is not appreciated, voluntary guarding, is not appreciated, involuntary guarding, is not appreciated. 14:00 Back: CVA tenderness, is absent. 14:00 Skin: no rash present. 14:00 Neuro: Orientation: to person, place \T\ time. Mentation: is normal, Motor: moves all fours, strength is normal, Sensation: no obvious gross deficits. 14:17 ECG was reviewed by the Attending Physician. Vital Signs: 13:22 BP 109 / 66; Pulse 87; Resp 19; Temp 98.1(O); Pulse Ox 92% on R/A; lt1 14:30 BP 117 / 71; Pulse 76; Resp 18 S; Pulse Ox 96% on 2 lpm NC; aa5 15:30 BP 114 / 71; Pulse 74; Resp 18 S; Pulse Ox 96% on 2 lpm NC; aa5 16:30 BP 127 / 79; Pulse 81; Resp 16 S; Pulse Ox 96% on 2 lpm NC; aa5 17:10 BP 123 / 73; Pulse 82; Resp 16 S; Temp 98.0(O); Pulse Ox 92% on R/A; aa5 MDM: 13:38 Patient medically screened. [facility] 17:02 Data reviewed: vital signs, nurses notes, lab test result(s), EKG, radiologic studies, cp plain films. 17:02 Test interpretation: by ED physician or midlevel provider: ECG, plain radiologic cp studies. Counseling: I had a detailed discussion with the patient and/or guardian regarding: the historical points, exam findings, and any diagnostic results supporting the discharge/admit diagnosis, lab results, radiology results, the need for outpatient follow up, a family practitioner, to return to the emergency department if symptoms worsen or persist or if there are any questions or concerns that arise at home, smoking cessation. Response to treatment: VSS. Pain improved. No signs of respiratory distress noted. Will treat outpatient with oral antibiotics and discharge to home for continued monitoring. 05/13 13:41 Order name: Basic Metabolic Panel; Complete Time: 15:37 cp 05/13 15:38 Interpretation: Normal except: GLUC 151; BUN 27; CRE 1.63; GFR 42. cp 05/13 13:41 Order name: CBC with Diff; Complete Time: 15:37 cp 05/13 14:19 Interpretation: Normal except: RBC 3.68; HGB 11.1; HCT 33.1; RDW 26.5; MPV 7.0; JORGE% cp 76.5; LYM% 12.6. 05/13 13:41 Order name: LFT's; Complete Time: 15:37 cp 05/13 15:38 Interpretation: Normal except: AST 12; ALB 3.1; GLOB 3.7; A/G 0.8. cp 05/13 13:41 Order name: Magnesium; Complete Time: 15:37 cp 05/13 13:41 Order name: NT PRO-BNP; Complete Time: 15:37 cp 05/13 13:41 Order name: PT-INR; Complete Time: 14:19 cp 05/13 13:41 Order name: Troponin (emerg Dept Use Only); Complete Time: 15:37 cp 05/13 13:41 Order name: XRAY Chest (1 view); Complete Time: 15:37 cp 05/13 13:41 Order name: Urine Microscopic Only; Complete Time: 16:16 cp 05/13 13:58 Order name: Glucose, Ancillary Testing; Complete Time: 14:19 EDMS 05/13 14:19 Interpretation: Abnormal: GLUC,ANCIL 148. cp 05/13 14:13 Order name: Occult Blood--Ancillary iw 05/13 14:18 Order name: Lipase; Complete Time: 15:37 cp 05/13 14:26 Order name: CBC Smear Scan; Complete Time: 15:37 EDMS 05/13 14:51 Order name: Urine Dipstick--Ancillary (enter results) eb 05/13 13:41 Order name: EKG; Complete Time: 13:42 cp 05/13 13:41 Order name: Cardiac monitoring; Complete Time: 13:46 cp 05/13 13:41 Order name: EKG - Nurse/Tech; Complete Time: 13:53 cp 05/13 13:41 Order name: IV Saline Lock; Complete Time: 13:53 cp 05/13 13:41 Order name: Labs collected and sent; Complete Time: 13:53 cp 05/13 13:41 Order name: O2 Per Protocol; Complete Time: 13:46 cp 05/13 13:41 Order name: O2 Sat Monitoring; Complete Time: 13:46 cp 05/13 13:41 Order name: US Abdomen Limited; Complete Time: 15:37 cp 05/13 13:41 Order name: Urine Dipstick-Ancillary (obtain specimen); Complete Time: 14:51 cp 05/13 13:43 Order name: NPO; Complete Time: 13:45 cp EC:17 Rate is 76 beats/min. Rhythm is regular. IA interval is normal. QRS interval is cp prolonged at 120 msec. QT interval is normal. T waves are Inverted in leads aVL, aVR. Interpreted by me. Reviewed by me. Administered Medications: 15:52 Drug: Albuterol 2.5 mg Route: Inhalation; aa5 15:52 Drug: AtroVENT Aerosol 0.5 mg Route: Inhalation; aa5 15:52 Drug: TORadol - Ketorolac 15 mg Route: IVP; Site: right antecubital; aa5 16:00 Follow up: Response: No adverse reaction aa5 17:10 Drug: Zithromax 500 mg Route: PO; aa5 18:10 Follow up: Response: No adverse reaction aa5 17:10 Drug: Rocephin - (cefTRIAXone) 1 grams {Note: given slow IVP per pharmacy at this time. aa5 .} Route: IVPB; Infused Over: 30 mins; Site: right antecubital; 17:20 Follow up: Response: No adverse reaction aa5 Point of Care Testing: Blood Glucose: 13:46 Blood Glucose: 148 mg/dL; aa5 Ranges: Critical Glucose Levels:Adult <50 mg/dl or >400 mg/dl <40 mg/dl or >180 mg/dl Disposition: 05/14 07:52 Co-signature as Attending Physician, Dhruv Colon MD I agree with the assessment and angy plan of care. Disposition: 05/13/19 17:02 Discharged to Home. Impression: Pneumonia due to other specified bacteria. - Condition is Stable. - Discharge Instructions: Community-Acquired Pneumonia, Adult. - Prescriptions for Augmentin 875- 125 mg Oral Tablet - take 1 tablet by ORAL route every 12 hours for 10 days; 20 tablet. Zithromax Z- Darrius 250 mg Oral Tablet - take 1 tablet by ORAL route as directed for 5 days Day 1 - take two (2) tablets one time. Day 2, 3, 4 , 5 take one (1) tablet once daily.; 6 tablet. - Medication Reconciliation Form, Thank You Letter, Antibiotic Education, Prescription Opioid Use form. - Follow up: Private Physician; When: 1 - 2 days; Reason: Recheck today's complaints. - Problem is new. - Symptoms have improved. Signatures: Dispatcher [employer] EDLA Dhruv Colon MD MD cha Calderon, Audri, RN RN aa5 Dhruv Armstrong PA PA cp Corrections: (The following items were deleted from the chart) 05/13 13:46 13:42 Abdomen Limited+[id number] ordered. [facility] 18:14 17:02 05/13/2019 17:02 Discharged to Home. Impression: Pneumonia due to other specified aa5 bacteria. Condition is Stable. Forms are Medication Reconciliation Form, Thank You Letter, Antibiotic Education, Prescription Opioid Use. Follow up: Private Physician; When: 1 - 2 days; Reason: Recheck today's complaints. Problem is new. Symptoms have improved. cp 05/14 17:37 13:50 This 74 yrs old Male presents to ER via EMS with complaints of cp Abdominal Pain. cp 17:37 05/13 13:50 The patient presents with abdominal pain right lateral upper abdomen cp cp
[2019-05-13] MEDS ORDERED: CEFTRIAXONE/SWI 1gm 1 GM/10 ML SYR ONE (17:10)
[2019-05-13] MEDS ORDERED: AZITHROMYCIN 250 MG TAB ONE (17:10)
--- NOTE | 2019-05-13 17:11 | EKG ---
Test Date: 2019-05-13 Test Time: 14:16:44 Water Treatment Plant Mechanic: MICHELINE MEASUREMENT RESULTS: Intervals: Rate: 76 MN: 168 QRSD: 120 QT: 408 QTc: 459 [place]: P: 73 MN: 168 QRS: -69 T: 87 INTERPRETIVE STATEMENTS: Normal sinus rhythm Left axis deviation Septal infarct, age undetermined Abnormal ECG Compared to ECG 02/13/2018 10:55:17 Left-axis deviation now present Myocardial infarct finding now present Atrial premature complex(es) no longer present Electronically Signed On 05-13-19 17:10:44 FINISHING MACHINE TENDER by Maxi Wade
[2019-05-13 18:58] VITALS: BP 109/66; TEMP 98.1; O2SAT 92
== END 2019-05-13 18:14 | disposition home or self-care (01) ==
LOC: ER 13:16
DX: J15.8 Pneumonia due to other specified bacteria (principal); R10.9 Unspecified abdominal pain; F17.210 Nicotine dependence, cigarettes, uncomplicated; E11.9 Type 2 diabetes mellitus without complications; E78.5 Hyperlipidemia, unspecified; J44.9 Chronic obstructive pulmonary disease, unspecified; Z79.82 Long term (current) use of aspirin; Z95.818 Presence of other cardiac implants and grafts
CPT/HCPCS: 93005; 85025; 80048; 36415; 83735; 85610; 82947; 80076; 82272; 84484; 83690; 83880; 71045; 76705; 96375; 96374; 99285; J0696; 81003; 81015

== ENCOUNTER 2020-07-02 11:59 | Emergency (ER) | payer OTHER ==
[2020-07-02] MEDS ORDERED: ONDANSETRON 4 MG/2 ML VIAL ONE (13:43)
--- NOTE | 2020-07-02 13:56 | RAD REPORT ---
EXAM DESCRIPTION: CT - Head Brain Wo Cont - 07/02/2020 1:33 pm CLINICAL HISTORY: Headache COMPARISON: None TECHNIQUE: Computed axial tomography of the head was obtained. IV contrast was not requested. All CT scans are performed using dose optimization technique as appropriate and may include automated exposure control or mA/KV adjustment according to patient size. FINDINGS: Moderate to large subdural hematoma is present along the right frontal and parietal convex ity. It has intermediate density. It contains small area of increased density. A small to moderate subdural hematoma is present along the left frontal convexity extending to the l eft parietal convexity. It also contains low to intermediate density which is mildly lower than on th e right. The sulci are compressed bilaterally. Shift of the midline structures 4 millimeters to the left. Vent ricles are compressed. Low-density areas present within the anterior limb right internal capsule. Small low-density area lef t frontal lobe The ventricles are normal in caliber. No extra-axial fluid collection is noted. Fluid within the sinuses/ mastoids is not seen. IMPRESSION: Moderate mostly subacute hematoma lung right cerebral convexity. It contains a small acu te component. Small to moderate subacute hematoma along left cerebral convexity. Low-density area within the right internal capsule may indicate an infarct of indeterminate age Dr Colon of the emergency room notified 1:50 p.m. July 02, 2020 Shift of the midline structures 4 millimeters to the left
[2020-07-02 14:15] LABS: Absolute Lymphocytes (CBC) 1.3 K/uL (0.7-4.9); Basophils % 1.4 % (0-1.3); Hematocrit 32.9 % (39.6-49.0); MPV 7.6 fL (7.6-11.3); Protime INR 1.08; RBC Red Blood Cell Count 3.67 M/uL (4.33-5.43)
--- NOTE | 2020-07-02 14:18 | EDPHYS ---
Physician Documentation [facility] Name: Farhat Burch Sr Age: 75 yrs Sex: Male : 1945 Arrival Date: 07/02/2020 Time: 12:00 Bed 26 Private MD: ED Physician Dhruv Colon HPI: 07/02 13:54 This 75 yrs old Male presents to ER via EMS with complaints of Headache. pm1 13:54 The patient complains of pain to the forehead, left occipital area and right occipital pm1 area. The patient describes the headache as aching, constant. Onset: The symptoms/episode began/occurred 1 month(s) ago, and became worse 3 day(s) ago. Associated signs and symptoms: Pertinent positives: nausea, decreased appetite. Severity of symptoms: in the emergency department the pain is actually worse. Headache History: Denies prior headaches. The symptoms are alleviated by nothing. the symptoms are aggravated by coughing and bending over to look at his feet. The patient has not experienced similar symptoms in the past. The patient has not recently seen a physician. 13:54 Patient denies any falls or head trauma this year. pm1 Historical: - Allergies: 12:03 No Known Drug Allergies; sv - PMHx: 12:03 Hyperlipidemia; Diabetes - IDDM; Anemia; Anxiety; neely esophagus; COPD; Depression; sv Hypertension; resolved; - PSHx: 12:03 Heart stents; sv ROS: 13:54 Constitutional: Negative for fever, chills, and weight loss, Eyes: Negative for injury, pm1 pain, redness, and discharge, ENT: Negative for injury, pain, and discharge, Neck: Negative for injury, pain, and swelling, Cardiovascular: Negative for chest pain, palpitations, and edema, Respiratory: Negative for shortness of breath, cough, wheezing, and pleuritic chest pain, Abdomen/GI: Negative for abdominal pain, nausea, vomiting, diarrhea, and constipation, Back: Negative for injury and pain, MS/Extremity: Negative for injury and deformity, Skin: Negative for injury, rash, and discoloration. 13:54 Neuro: Positive for headache, unsteady gait for at least one year. Exam: 13:54 Constitutional: This is a well developed, well nourished patient who is awake, alert, pm1 and in no acute distress. Head/Face: Normocephalic, atraumatic. 13:54 Skin: Warm, dry with normal turgor. Normal color with no rashes, no lesions, and no evidence of cellulitis. MS/ Extremity: Pulses equal, no cyanosis. Neurovascular intact. Full, normal range of motion. 13:54 Eyes: Exam is negative for acute changes, Pupils: no acute changes, normal size, shape is regular, normal reaction to light, Extraocular movements: intact throughout. 13:54 Cardiovascular: Exam negative for acute changes, Rate: normal, Rhythm: regular, Pulses: no pulse deficits are appreciated. 13:54 Respiratory: Exam negative for acute changes, respiratory distress, shortness of breath. 13:54 Abdomen/GI: Exam negative for acute changes, Inspection: abdomen appears normal, Palpation: abdomen is soft and non-tender, in all quadrants. 13:54 Neuro: Orientation: is normal, Mentation: is normal, Cranial nerves: CN II- XII are normal as tested, Cerebellar function: normal finger to nose testing, Motor: is normal, moves all fours, strength is 5/5 in all extremities, Sensation: is normal, no obvious gross deficits. Vital Signs: 12:01 BP 156 / 78; Pulse 66; Resp 16; Temp 97.8; Pulse Ox 99% ; sv 13:09 BP 149 / 96; Pulse 64; Resp 22; Pulse Ox 100% on 3 lpm NC; vg1 14:00 BP 161 / 79; Pulse 61; Resp 18; Pulse Ox 100% on 3 lpm NC; vg1 14:30 BP 153 / 98; Pulse 61; Resp 18; Pulse Ox 100% on 3 lpm NC; vg1 15:00 BP 149 / 86; Pulse 62; Resp 22; Pulse Ox 100% on 3 lpm NC; vg1 15:30 BP 156 / 84; Pulse 66; Resp 22; Pulse Ox 100% on 3 lpm NC; vg1 16:00 BP 153 / 77; Pulse 62; Resp 20; Pulse Ox 100% on 3 lpm NC; vg1 16:30 BP 162 / 75; Pulse 58; Resp 20; Pulse Ox 100% on 3 lpm NC; vg1 17:00 BP 147 / 86; Pulse 59; Resp 20; Pulse Ox 100% on 3 lpm NC; vg1 17:30 BP 151 / 77; Pulse 56; Resp 20; Pulse Ox 100% on 3 lpm NC; vg1 18:00 BP 151 / 78; Pulse 56; Resp 20; Pulse Ox 100% on 3 lpm NC; vg1 MDM: 12:57 Patient medically screened. pm1 14:12 Data reviewed: vital signs. Data interpreted: Pulse oximetry: on room air is 100 %. pm1 Interpretation: normal. 14:14 Counseling: I had a detailed discussion with the patient and/or guardian regarding: the pm1 historical points, exam findings, and any diagnostic results supporting the discharge/admit diagnosis, radiology results, the need to transfer to another facility, for higher level of care, [facility] does not immediately have the required specialist. 14:32 Physician consultation: MD Ackerman was contacted at 14:32, regarding regarding transfer, pm1 patient's condition, and will see patient. 07/02 13:54 Order name: Basic Metabolic Panel [facility] 07/02 13:54 Order name: CBC with Diff [facility] 07/02 13:54 Order name: LFT's [facility] 07/02 13:54 Order name: Magnesium [facility] 07/02 13:54 Order name: NT PRO-BNP [facility] 07/02 13:54 Order name: PT-INR [facility] 07/02 13:54 Order name: Troponin (emerg Dept Use Only) [facility] 07/02 13:55 Order name: Basic Metabolic Panel; Complete Time: 14:55 EDMS 07/02 13:55 Order name: CBC with Automated Diff [facility] 07/02 13:55 Order name: Liver (Hepatic) Function; Complete Time: 14:55 EDUT 07/02 13:55 Order name: Magnesium; Complete Time: 14:55 EDUT 07/02 13:55 Order name: NT PRO-BNP; Complete Time: 14:55 EDUT 07/02 13:55 Order name: Protime (+INR); Complete Time: 14:55 EDUT 07/02 13:55 Order name: Troponin (Emerg Dept Use Only); Complete Time: 14:55 EDUT 07/02 12:57 Order name: CT Head Brain wo Cont; Complete Time: 13:59 pm1 07/02 13:54 Order name: XRAY Chest (1 view); Complete Time: 15:13 [facility] 07/02 13:54 Order name: EKG; Complete Time: 13:55 [facility] 07/02 13:54 Order name: Cardiac monitoring; Complete Time: 14:06 [facility] 07/02 13:54 Order name: EKG - Nurse/Tech; Complete Time: 14:05 [facility] 07/02 13:54 Order name: IV Saline Lock; Complete Time: 13:56 [facility] 07/02 13:54 Order name: Labs collected and sent; Complete Time: 13:56 [facility] 07/02 13:54 Order name: O2 Per Protocol; Complete Time: 13:56 [facility] 07/02 13:54 Order name: O2 Sat Monitoring; Complete Time: 13:56 [facility] 07/02 13:56 Order name: COVID-19 : Document "Date of Symptom Onset" if Symptomatic. [facility] 07/02 15:02 Order name: SARS-COV-2 RT PCR; Complete Time: 15:13 [facility] 07/02 13:57 Order name: Seizure Precautions; Complete Time: 14:17 [facility] Administered Medications: 13:28 Drug: Zofran (Ondansetron) 4 mg Route: IVP; Site: left wrist; vg1 15:45 Follow up: Response: Nausea is decreased vg1 14:17 Drug: Pepcid 20 mg Route: IVP; Site: left wrist; vg1 15:45 Follow up: Response: No adverse reaction vg1 14:18 Drug: NS 0.9% 1000 ml Route: IV; Rate: 125 ml/hr; Site: left wrist; vg1 18:31 Follow up: IV Status: Infusion continued upon transfer vg1 14:56 Drug: Keppra 1000 mg Route: IV; Rate: per protocol; Site: left wrist; vg1 15:12 Follow up: IV Status: Completed infusion vg1 Disposition: 07/03 06:23 Co-signature as Attending Physician, Dhruv Colon MD I agree with the assessment and [facility] plan of care. Disposition: 07/02/20 14:17 Transfer ordered to [facility]. Diagnosis are Nontraumatic subacute subdural hemorrhage, Nontraumatic acute subdural hemorrhage. - Reason for transfer: Higher level of care. - Accepting physician is Dr. Ackerman. - Condition is Stable. - Problem is new. - Symptoms are unchanged. Signatures: Dispatcher [employer] Jessica Feliciano RN RN sv Anderson, Corey, MD MD cha Marinas, Patrick, GEOCHEMISTRY TEACHER GEOCHEMISTRY TEACHER pm1 James, Malka, RN RN vg1 Corrections: (The following items were deleted from the chart) 07/02 14:22 13:57 CORONAVIRUS ordered. EDMS EDMS 14:50 14:17 07/02/2020 14:17 Transfer ordered to [facility]. pm1 Diagnosis is Nontraumatic subacute subdural hemorrhage; Nontraumatic acute subdural hemorrhage. Reason for transfer: Higher level of care. Accepting physician is . Condition is Stable. Problem is new. Symptoms are unchanged. pm1 18:30 14:50 07/02/2020 14:17 Transfer ordered to [facility]. vg1 Diagnosis is Nontraumatic subacute subdural hemorrhage; Nontraumatic acute subdural hemorrhage. Reason for transfer: Higher level of care. Accepting physician is Dr. Ackerman. Condition is Stable. Problem is new. Symptoms are unchanged. pm1
--- NOTE | 2020-07-02 14:18 | ER ---
Nurse's Notes [facility] Name: Farhat Burch Sr Age: 75 yrs Sex: Male : 1945 Arrival Date: 07/02/2020 Time: 12:00 Bed 26 Private MD: Diagnosis: Nontraumatic subacute subdural hemorrhage;Nontraumatic acute subdural hemorrhage Presentation: 07/02 12:01 Chief complaint: EMS states: headache x 1 month, has been taking Tylenol with no sv relief. Ibuprofen 400 mg PO given by EMS. Coronavirus screen: Client denies travel out of the [place] in the last 14 days. At this time, the client does not indicate any symptoms associated with coronavirus-19. Ebola Screen: No symptoms or risks identified at this time. Initial Sepsis Screen: Does the patient meet any 2 criteria? No. Patient's initial sepsis screen is negative. Does the patient have a suspected source of infection? No. Patient's initial sepsis screen is negative. Risk Assessment: Do you want to hurt yourself or someone else? Patient reports no desire to harm self or others. Onset of symptoms was May 2020. 12:01 Method Of Arrival: EMS: [facility] sv 12:01 Acuity: JESSE 2 ss Historical: - Allergies: 12:03 No Known Drug Allergies; sv - PMHx: 12:03 Hyperlipidemia; Diabetes - IDDM; Anemia; Anxiety; neely esophagus; COPD; Depression; sv Hypertension; resolved; - PSHx: 12:03 Heart stents; sv Screenin:09 Abuse screen: Denies threats or abuse. Nutritional screening: No deficits noted. vg1 Tuberculosis screening: No symptoms or risk factors identified. Fall Risk No fall in past 12 months (0 pts). No secondary diagnosis (0 pts). IV access (20 points). Ambulatory Aid- None/Bed Rest/Nurse Assist (0 pts). Gait- Normal/Bed Rest/Wheelchair (0 pts) Mental Status- Oriented to own ability (0 pts). Total Wu Fall Scale indicates No Risk (0-24 pts). Assessment: 13:07 General: Appears in no apparent distress. comfortable, Behavior is calm, cooperative. vg1 Pain: Complains of pain in head Pain currently is 10 out of 10 on a pain scale. Pain began headache for about a month but the last 2-3 has become worse. Neuro: Level of Consciousness is awake, alert, obeys commands, Oriented to person, place, time, situation. Cardiovascular: Patient's skin is warm and dry. Respiratory: Airway is patent Respiratory effort is even, unlabored, Respiratory pattern is regular, symmetrical. GI: Reports nausea. : No signs and/or symptoms were reported regarding the genitourinary system. EENT: No signs and/or symptoms were reported regarding the EENT system. Derm: Skin is pink, warm \T\ dry. Musculoskeletal: Circulation, motion, and sensation intact. 14:56 Reassessment: Patient appears in no apparent distress at this time. No changes from vg1 previously documented assessment. Patient and/or family updated on plan of care and expected duration. Pain level reassessed. Patient is alert, oriented x 3, equal unlabored respirations, skin warm/dry/pink. 15:44 Reassessment: Patient appears in no apparent distress at this time. Patient and/or vg1 family updated on plan of care and expected duration. Pain level reassessed. Patient is alert, oriented x 3, equal unlabored respirations, skin warm/dry/pink. 17:06 Reassessment: Patient appears in no apparent distress at this time. No changes from vg1 previously documented assessment. Patient and/or family updated on plan of care and expected duration. Pain level reassessed. Patient is alert, oriented x 3, equal unlabored respirations, skin warm/dry/pink. 18:30 Reassessment: Patient appears in no apparent distress at this time. No changes from vg1 previously documented assessment. Patient and/or family updated on plan of care and expected duration. Pain level reassessed. Patient is alert, oriented x 3, equal unlabored respirations, skin warm/dry/pink. Vital Signs: 12:01 BP 156 / 78; Pulse 66; Resp 16; Temp 97.8; Pulse Ox 99% ; sv 13:09 BP 149 / 96; Pulse 64; Resp 22; Pulse Ox 100% on 3 lpm NC; vg1 14:00 BP 161 / 79; Pulse 61; Resp 18; Pulse Ox 100% on 3 lpm NC; vg1 14:30 BP 153 / 98; Pulse 61; Resp 18; Pulse Ox 100% on 3 lpm NC; vg1 15:00 BP 149 / 86; Pulse 62; Resp 22; Pulse Ox 100% on 3 lpm NC; vg1 15:30 BP 156 / 84; Pulse 66; Resp 22; Pulse Ox 100% on 3 lpm NC; vg1 16:00 BP 153 / 77; Pulse 62; Resp 20; Pulse Ox 100% on 3 lpm NC; vg1 16:30 BP 162 / 75; Pulse 58; Resp 20; Pulse Ox 100% on 3 lpm NC; vg1 17:00 BP 147 / 86; Pulse 59; Resp 20; Pulse Ox 100% on 3 lpm NC; vg1 17:30 BP 151 / 77; Pulse 56; Resp 20; Pulse Ox 100% on 3 lpm NC; vg1 18:00 BP 151 / 78; Pulse 56; Resp 20; Pulse Ox 100% on 3 lpm NC; vg1 ED Course: 12:00 Patient arrived in ED. ds1 12:02 Triage completed. sv 12:03 Arm band placed on. sv 12:57 Baldomero Perry NP is PHCP. pm1 12:57 Dhruv Colon MD is Attending Physician. pm1 13:07 Malka Ramirez, NAYANA is Primary Nurse. vg1 13:10 Patient has correct armband on for positive identification. Bed in low position. Call vg1 light in reach. Side rails up X 1. 13:[address] via stretcher. vg1 13:28 Maintain EMS IV. Dressing intact. Good blood return noted. Site clean \T\ dry. Gauge \T\ vg 1 site: 20 Left Wrist. 13:33 CT Head Brain wo Cont In Process Unspecified. EDMS 13:[address] Colon with Lourdes Hurtado Rn from the [facility] eb Transfer Center. 14:13 Seizure precautions initiated. jp3 14:24 COVID swab sent to lab. jp3 14:[address] Ackerman the neurologist second time worker for [facility] with [facility]dom[facility] Oliveira for eb patient transfer consultation. 14:[address] the [facility] called to let us know it will be somewhat of a wait until a eb bed frees up on the neuro wing to please call with Covid results once we get it. 14:42 XRAY Chest (1 view) In Process Unspecified. EDMS 15:14 called and notified Lourdes at the transfer center the COVID results. 17:18 administrative approval given by Lourdes Hurtado Rn/ patient has been accepted to [facility] [address] Bed 12/ Dr. Nadia Ackerman has accepted the patient in transfer/ report to be called to [phone]. 17:39 No provider procedures requiring assistance completed. Patient transferred, IV remains vg1 in place. Administered Medications: 13:28 Drug: Zofran (Ondansetron) 4 mg Route: IVP; Site: left wrist; vg1 15:45 Follow up: Response: Nausea is decreased vg1 14:17 Drug: Pepcid 20 mg Route: IVP; Site: left wrist; vg1 15:45 Follow up: Response: No adverse reaction vg1 14:18 Drug: NS 0.9% 1000 ml Route: IV; Rate: 125 ml/hr; Site: left wrist; vg1 18:31 Follow up: IV Status: Infusion continued upon transfer vg1 14:56 Drug: Keppra 1000 mg Route: IV; Rate: per protocol; Site: left wrist; vg1 15:12 Follow up: IV Status: Completed infusion vg1 Outcome: 14:17 ER care complete, transfer ordered by MD. pm1 17:40 Transferred by ground EMS to [facility]. vg1 17:40 Condition: good 17:40 Instructed on the need for transfer. 18:30 Patient left the ED. vg1 Signatures: Dispatcher [employer] EDJessica Gonzalez RN RN Bettina Sparrow ds1 Asia Garner RN RN Baldomero Perry NP AIRCRAFT POWERTRAIN REPAIRER pm1 Yaneth Norman Jacob jp3 Malka Ramirez RN RN vg1 Corrections: (The following items were deleted from the chart) 13:29 13:28 Inserted saline lock: 20 gauge in left wrist, using aseptic technique. ,using vg1 aseptic technique. completed by EMS Maintain EMS IV. Dressing intact. Good blood return noted. Site clean \T\ dry. Gauge \T\ site: 20 Left Wrist. vg1 13:54 12:01 Acuity: JESSE 4 sv ss
[2020-07-02] MEDS ORDERED: NA CHLORIDE 0.9% 1,000 ML ONE (14:28)
[2020-07-02] MEDS ORDERED: FAMOTIDINE 20 MG/2 ML VIAL IV ONE (14:28)
[2020-07-02 14:38] LABS: Albumin 3.4 g/dL (3.4-5.0); Bilirubin Direct 0.1 mg/dL (0-0.2); Bilirubin Total 0.4 mg/dL (0.2-1.0); Magnesium 2.2 mg/dL (1.8-2.4); Potassium 3.7 mmol/L (3.5-5.1); Protein, Total 6.6 g/dL (6.4-8.2); Troponin (Emerg Dept Use Only) 0.03 ng/mL (0.0-0.045)
[2020-07-02] MEDS ORDERED: levETIRAcetam 1,000 MG in NA CHLORIDE 0.9% 100 ML IV ONE (15:00)
--- NOTE | 2020-07-02 15:01 | RAD REPORT ---
EXAM DESCRIPTION: [place] Single View07/02/2020 2:42 pm CLINICAL HISTORY: Cough COMPARISON: 2019 FINDINGS: Right hemidiaphragm elevation unchanged. The lungs appear clear of acute infiltrate. The heart is normal size IMPRESSION: No acute abnormalities displayed
[2020-07-02 19:12] LABS: Platelet Estimate ADEQ; White Blood Cell Scan OK (OK)
[2020-07-02 19:13] LABS: Anisocytosis 3+; Blood Morphology Comment NOTED (NOT SEEN)
[2020-07-02 19:14] LABS: Ovalocytes 2+; Poikilocytosis 2+
[2020-07-02 20:21] VITALS: TEMP 97.8
[2020-07-02 20:22] VITALS: O2SAT 100
[2020-07-02 20:35] VITALS: BP 151/78
--- NOTE | 2020-07-03 17:11 | EKG ---
Test Date: 2020-07-02 Test Time: 14:01:31 Fare Collector: CHRISTINE MEASUREMENT RESULTS: Intervals: Rate: 61 VA: 182 QRSD: 154 QT: 486 QTc: 489 [place]: P: 63 VA: 182 QRS: -21 T: 94 INTERPRETIVE STATEMENTS: Normal sinus rhythm with sinus arrhythmia Left bundle branch block Abnormal ECG Compared to ECG 05/13/2019 14:16:44 Left bundle-branch block now present Left-axis deviation no longer present Myocardial infarct finding no longer present Electronically Signed On 07-03-20 17:06:28 ASSISTANT SHIFT SUPERVISOR by Arnold Estes
== END 2020-07-02 18:30 | disposition short-term general hospital (02) ==
LOC: ER 11:59
DX: I62.01 Nontraumatic acute subdural hemorrhage (principal); I62.02 Nontraumatic subacute subdural hemorrhage; Z20.822 Contact with and (suspected) exposure to COVID-19; Z95.818 Presence of other cardiac implants and grafts
CPT/HCPCS: 96365; 96361; 93005; 85025; 80048; 36415; 83735; 85610; 80076; 84484; 83880; 70450; 71045; 96375; 99285; U0003; J1953; J7030; J2405

== ENCOUNTER 2020-07-24 14:04 | Emergency (ER) | payer OTHER ==
--- OUTSIDE RECORDS SUMMARY | 2020-07-24 14:09 | XMS REPORT | Continuity of Care Document ---
:1945 Author Organization [facility] t Address [address] [place] [address] Care Team Providers Name Role Phone JENNIFER DRUMMOND Attending Clinician Unavail able Jennifer Drummond MD Attending Clinician [phone] Ale HURST I. 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 00:00: Medica l without without 00 Center complicati complicati on, on, without without long-term long-term current current use of use of insulin insulin Benign Benign Disease Active [facility] prostatic prostatic 3- [facility] - hyperplasi hyperplasi 00:00: Me dical a with a with 00 Center urinary urinary frequency frequency S/P brain S/P brain Disease Active [facility] surgery surgery 07-03 [facility] - 00:00: Medical 00 Center Essential Essential Disease Active [facility] St hypertensi hypertensi 3- Lakshmi kes - on on 00:00: Medical 00 [place] 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 Social History Social Habit Start Date Stop Date Quantity Comments Source Sex Assigned At [facility] Exposure to Not sure [facility] - SARS-CoV-2 (event) [facility] History of tobacco Cigarette Smoker [facility] use [facility] Cigarettes smoked 2020-07-03 2020-07-03 [facility] - current (pack per 00:00:00 00:00:00 [facility] day) - Reported Cigarette 2020-07-03 2020-07-03 [facility] - pack-years 00:00:00 00:00:00 [facility] Tobacco use and 2020-07-03 2020-07-03 Never used [facility] - exposure 00:00:00 00:00:00 [facility] Smoking Status Start Date Stop Date Source Current every day smoker 2020-07-03 00:00:00 [facility] Medications Ordered Filled Start Stop Current Ordering Indication Dosage Frequency Signature Comments Components Source Medication Medication Date Date Medication? Clinician (SIG) Name Name acetaminoph Yes 650mg Take [address] en 3-05 mg by [facility] - (TYLENOL) 14:01: mouth Medical 325 MG 26 every 6 Center tablet (six) hours as needed for Pain or Fever. albuterol Yes 2{puff} Inhale [address] HFA 3-05 puffs by [facility] - (VENTOLIN 14:01: mouth via Med ical HFA) 90 26 inhaler Center mcg/actuati every 6 on inhaler (six) hours as needed (Topical pain relief). ARIPiprazol Yes 2.5mg QD Take 2.[address] e (ABILIFY) 3-05 mg by [facility] - 5 MG tablet 14:01: mouth Medic al 26 daily. Center e-lytes/car Yes 5mL [address] [facility] boxymethylc 3-05 Mucous [facility] - ellulose 14:01: Membrane Medic al (ARTIFICIAL 26 route 4 Cente r SALIVA MM) (four) times daily as needed (Dry Mouth). budesonide- Yes 2{puff} Q.5D Inhale [address] formoteroL 3-05 puffs by [facility] - (SYMBICORT) 14:01: mouth via M edical 80-4.5 26 inhaler 2 Center mcg/actuati (two) on inhaler times daily Rinse after use . buPROPion Yes 450mg QD Take [address] (WELLBUTRIN 3-05 mg by [facility] - XL) 150 MG 14:01: mouth Medica l 24 hr 26 daily. Center tablet busPIRone Yes 20mg Q.13020567 Take [address] (BUSPAR) 10 3-05 [id number] by mouth 3 [facility] - MG tablet 14:01: 3D (three) Medic al 26 times Center daily. cyanocobala Yes 1000ug QD Take 1,[address] min, 3-05 mcg by [facility] - vitamin 14:01: mouth Medical B-12, 1000 26 daily. Center MCG tablet docusate Yes 100mg QD Take [address] sodium 3-05 mg by [facility] - (COLACE) 14:01: mouth Medical 100 MG 26 daily. Center capsule DULoxetine Yes 120mg QD Take [address] (CYMBALTA) 3-05 mg by [facility] - 60 MG 14:01: mouth Medical capsule 26 daily. Center ferrous 0 Yes 324mg Q.5D Take 324 [facility] gluconate 3-05 mg by [facility] - (FERGON) 14:01: mouth 2 Medica l 324 MG 26 (two) Center tablet times daily. finasteride Yes 5mg QD Take [address] (PROSCAR) 5 3-05 by mouth [facility] - mg tablet 14:01: daily. Medica l 26 Center fluticasone Yes 1{spray Q.5D [address] [address] propionate 3-05 } Nasal [facility] - (FLONASE) 14:01: route 2 Medic al 50 26 (two) Center mcg/actuati times on nasal daily. spray folic acid Yes 1mg QD Take [address] (FOLVITE) 1 3-05 by mouth Luke [facility] - MG tablet 14:01: daily. Medica l 26 Center multivitami Yes 1{tbl} QD Take [address] n per 3-05 tablet by [facility] - tablet 14:01: mouth Medical 26 daily. Center omeprazole Yes 40mg QD Take [address] (PriLOSEC) 3-05 by mouth [facility] - 20 MG 14:01: daily. Medical capsule 26 Center oxybutynin Yes 5mg Q.[id number] Take [address] (DITROPAN) 3-05 [id number] by mouth 3 [facility] - 5 MG tablet 14:01: 3D (three) Med ical 26 times Center daily. sodium Yes 1{spray [address] [facility] chloride 3-05 } Nasal [facility] - 0.65% 14:01: route 2 Medical (OCEAN) 26 (two) Center 0.65 % times nasal spray daily as needed (To cleanse and moisten nasal membranes) . tamsulosin Yes .4mg QD Take 0.[address] (FLOMAX) 3-05 mg by [facility] - 0.4 mg Cap 14:01: mouth Medica l 24 hr 26 nightly. Center capsule traZODone Yes 50mg Take [address] (DESYREL) 3-05 by mouth [facility] - 50 MG 14:01: every Medical tablet 26 night as Center needed for Sleep. aspirin 81 2020- No 81mg QD Take [address] MG chewable - 03-05 by mouth Mansi es - tablet 10:01: 00:00 daily. Medical 58 :00 Center glipiZIDE 2020-0 2020- No 15mg Take [address] (GLUCOTROL) 3-05 03-05 by mouth 2 L ukes - 10 MG 10:01: 00:00 (two) Medical tablet 58 :00 times Center daily before meals. lisinopriL 2020- No 2.5mg QD Take 2.[address] (PRINIVIL,Z 3-05 03-05 mg by [facility] - ESTRIL) 2.5 10:01: 00:00 mouth Medi ayanna MG tablet 58 :00 daily. Center simvastatin 2020- No 120mg QD Take [address] (ZOCOR) 80 -05 03-05 mg by [facility] - MG tablet 10:01: 00:00 mouth Medica l 58 :00 nightly. [place] lisinopriL Yes 10mg QD Take 4 [facility] (PRINIVIL,Z 3-05 tablets [facility] - ESTRIL) 2.5 00:00: (10 mg Medi ayanna MG tablet 00 total) by Cente r mouth daily. neomycin-ba Yes 1{packe Q.5D Apply [address] citracnZn-p 3-05 t} packet [facility] - olymyxnB 00:00: topically Medi ayanna (NEOSPORIN) 00 2 (two) Cente r 3.5-400-5,0 times 00 daily. mg-unit-uni t OiPk packet atorvastati 2020- Yes 40mg QD Take [address] n (LIPITOR) -05 04-04 tablet (40 L ukes - 40 MG 00:00: 23:59 mg total) Medica l tablet 00 :00 by mouth Center nightly for 30 days. Vital Signs Vital Name Observation Time Observation Value Comments Source Systolic blood 2020-07-07 11:05:00 116 mm[Hg] [facility] Diastolic blood 2020-07-07 11:05:00 57 mm[Hg] [facility] Heart rate 2020-07-07 11:05:00 73 /min [facility] Body temperature 2020-07-07 11:05:00 36.39 Harper [facility] Respiratory rate 2020-07-07 11:05:00 18 /min [facility] Oxygen saturation in 2020-07-07 11:05:00 94 /min [facility] Arterial blood by Medical Ce nter Pulse oximetry Body weight 2020-07-07 06:00:00 65.363 kg [facility] BMI 2020-07-07 06:00:00 19.54 kg/m2 [facility] Body height 2020-07-03 05:00:00 182.9 cm [facility] Procedures Procedure Date / Time Performing Clinician Source Performed POCT-GLUCOSE METER 2020-07-07 12:10:00 Marguerite Browne [facility] POCT-GLUCOSE METER 2020-07-07 07:38:00 Marguerite Browne [facility] CBC W/PLT COUNT & AUTO 2020-07-07 05:24:00 Abdoul [facility] BASIC METABOLIC PANEL (7) 2020-07-07 05:24:00 Ye Schreiber [facility] MAGNESIUM 2020-07-07 05:24:00 Ye Schreiber [facility] PHOSPHORUS 2020-07-07 05:24:00 Abdoul [facility] VITAMIN B12 AND FOLATE 2020-07-07 05:24:00 Alli Perez [facility] IRON, TIBC, % SAT. (WITHOUT 2020-07-07 05:24:00 Alli Perez [facility] FERRITIN) [facility] FERRITIN 2020-07-07 05:24:00 Alli Perez [facility] VITAMIN D, 25-HYDROXY 2020-07-07 05:24:00 Alli Perez [facility] POCT-GLUCOSE METER 2020-07-06 20:37:00 Phuc Aguilera I. [facility] POCT-GLUCOSE METER 2020-07-06 11:20:00 Phuc Aguilera I. [facility] CT BRAIN WITHOUT IV CONTRAST 2020-07-06 09:30:00 Seda García [facility] POCT-GLUCOSE METER 2020-07-06 06:22:00 Phuc Aguilera I. [facility] CBC W/PLT COUNT & AUTO 2020-07-06 03:06:00 Abdoul [facility] BASIC METABOLIC PANEL (7) 2020-07-06 03:06:00 Ye Schreiber [facility] MAGNESIUM 2020-07-06 03:06:00 Abdoul [facility] PHOSPHORUS 2020-07-06 03:06:00 Abdoul [facility] POCT-GLUCOSE METER 2020-07-06 00:21:00 Phuc Aguilera I. [facility] POCT-GLUCOSE METER 2020-07-05 17:13:00 Phuc Aguilera I. [facility] POCT-GLUCOSE METER 2020-07-05 12:08:00 Phuc Aguilera I. [facility] TROPONIN I 2020-07-05 07:04:00 Jasonhalima [facility] CBC W/PLT COUNT & AUTO 2020-07-05 03:01:00 Abdoul [facility] BASIC METABOLIC PANEL (7) 2020-07-05 03:01:00 Ye Schreiber [facility] MAGNESIUM 2020-07-05 03:01:00 Abdoul [facility] PHOSPHORUS 2020-07-05 03:01:00 Jasonhalima [facility] POCT-GLUCOSE METER 2020-07-04 23:57:00 Phuc Aguilera I. [facility] POCT-GLUCOSE METER 2020-07-04 16:41:00 Phuc Aguilera I. [facility] POCT-GLUCOSE METER 2020-07-04 11:32:00 Phuc Aguilera I. [facility] HEMOGLOBIN AND HEMATOCRIT 2020-07-04 11:26:00 Cortes Juares [facility] BASIC METABOLIC PANEL (7) 2020-07-04 11:26:00 Mir Jenkins [facility] POCT-GLUCOSE METER 2020-07-04 07:46:00 Phuc Aguilera CH, [facility] 2D ECHO W/ DOPPLER 2020-07-04 04:38:50 Nahum García [facility] (CW/PW/COLOR) [facility] CBC W/PLT COUNT & AUTO 2020-07-04 03:11:00 Abdoul [facility] BASIC METABOLIC PANEL (7) 2020-07-04 03:11:00 Ye Schreiber [facility] PHOSPHORUS 2020-07-04 03:11:00 Abdoul [facility] MAGNESIUM 2020-07-04 03:11:00 Abdoul [facility] PROTHROMBIN TIME/INR 2020-07-04 03:11:[address] [facility] APTT 2020-07-04 03:11:00 [facility] CREATINE KINASE (CK) 2020-07-04 03:11:[address] [facility] PREPARE LEUKO-REDUCED 2020-07-03 23:54:00 Vernell Martini [facility] HEMOGLOBIN AND HEMATOCRIT 2020-07-03 21:43:00 Cortes Juares [facility] POCT-GLUCOSE METER 2020-07-03 21:31:00 Phuc Aguilera [facility] POCT-GLUCOSE METER 2020-07-03 16:38:00 Phuc Aguilera [facility] THROMBOELASTOGRAPH (TEG) 2020-07-03 12:16:00 Nahum García [facility] BUR HOLE,EVACUATION HEMATOMA 2020-07-03 09:36:00 Mal Singletary [facility] CT BRAIN WITHOUT IV CONTRAST 2020-07-03 08:14:00 Mir Jenkins [facility] CBC W/PLT COUNT & AUTO 2020-07-03 04:36:00 Venkatasubba Ackerman, [facility] Ce nter BASIC METABOLIC PANEL (7) 2020-07-03 04:35:00 Venkatasubba Ackerman, [facility] nter MAGNESIUM 2020-07-03 04:35:00 Venkatasubba Ackerman, [facility] St [facility] Ce nter PHOSPHORUS 2020-07-03 04:35:00 Venkatasubba Ackerman, [facility] Ce nter LIPASE 2020-07-03 03:37:00 [facility] BASIC METABOLIC PANEL (7) 2020-07-03 03:37:00 Ye Schreiber [facility] MAGNESIUM 2020-07-03 03:37:00 Ye Schreiber [facility] HEMOGLOBIN A1C 2020-07-03 03:37:00 Ye [facility] TSH/FREE T4 IF INDICATED 2020-07-03 03:37:00 Ye [facility] LIPID PANEL 2020-07-03 03:37:00 Ye [facility] TRANSFUSE LEUKO-REDUCED 2020-07-03 01:36:45 Vernell Martini [facility] PLATELETS [facility] XR CHEST 1 VIEW 2020-07-02 22:17:00 [place]ell [facility] PORTABLE/BEDSIDE Medical Center ABORH, MANUAL 2020-07-02 22:07:00 Mehnaz Regalado [facility] SARS-COV2/RT-PCR (SLHS & REF 2020-07-02 22:03:00 BronxVernell [facility] - LABS) Medical [place] BASIC METABOLIC PANEL (7) 2020-07-02 21:48:00 Navya Martinijaylan Víctor grove [facility] CBC W/PLT COUNT & AUTO 2020-07-02 21:48:00 Vini Vernell Abrahamkaya [facility] B-TYPE NATRIURETIC FACTOR 2020-07-02 21:48:00 [facility] ([facility] TYPE AND SCREEN, AUTOMATED 2020-07-02 21:48:00 Vini Vernell Abraham kaya [facility] PROTHROMBIN TIME/INR 2020-07-02 21:12:00 [place] [facility] APTT 2020-07-02 21:12:00 [place] [facility] FIBRINOGEN 2020-07-02 21:12:00 [facility] CBC W/PLT COUNT & AUTO 2020-07-02 21:12:[address] [facility] COMPREHENSIVE METABOLIC 2020-07-02 21:12:[address] [facility] MAGNESIUM 2020-07-02 21:12:00 [place] [facility] PHOSPHORUS 2020-07-02 21:12:00 [place] [facility] TROPONIN I 2020-07-02 21:12:00 [facility] REPORT OF PROCEDURE - 2020-07-02 00:00:00 Provider, Sylvia [facility] - ENDOSCOPY SCAN Scanning [facility] Plan of Care Planned Activity Planned Date Details Comments Source Future Scheduled 2021-01-03 Hemoglobin A1c [facility] kes - Test 00:00:00 measurement [facility] (procedure) [code = 46668627] Future Scheduled 2020-05-05 DEPRESSION SCREENING [facility] - Test 00:00:00 (12+) [code = Medical Center DEPRESSION SCREENING (12+)] Future Scheduled 2020-01-04 INFLUENZA VACCINE (#1) [facility] - Test 00:00:00 [code = INFLUENZA Medical Ce nter VACCINE (#1)] Future Scheduled 2012-01-31 PNEUMOCOCCAL 65+ YRS [facility] - Test 00:00:00 (1 of 1 - Medical Center [id number] PCV13) [code = PNEUMOCOCCAL 65+ YRS (1 of 1 - [id number] PCV13)] Future Scheduled 1997 SHINGLES VACCINES ([address] [facility] - Test 00:00:00 of 2) [code = SHINGLES Medic al Center VACCINES (1 of 2)] Future Scheduled 1966 DTAP/TDAP/TD VACCINES [facility] - Test 00:00:00 (1 - Tdap) [code = Medical C enter DTAP/TDAP/TD VACCINES (1 - Tdap)] Future Scheduled 1965 HEPATITIS C SCREENING [facility] - Test 00:00:00 [code = HEPATITIS C Medical Center SCREENING] Future Scheduled 1957 DIABETIC EYE EXAM [facility] - Test 00:00:00 [code = DIABETIC EYE Medical Center EXAM] Future Scheduled [address] [facility] - Test 00:00:00 examination Medical Center (regime/therapy) [code = 753085410] Future Scheduled 1957 Urine screening for [facility] - Test 00:00:00 protein (procedure) Medical Center [code = 275580300] Future Scheduled [address] - Test 00:00:00 malignant neoplasm of [facility] colon (procedure) [code = 318705354] Results Test Description Test Time Test Comments Results Result Comments Source POCT-GLUCOSE METER 2020-07-09 06:48:00 Test Item Value Reference Range Interpretation Comme [facility] POC-GLUCOSE METER (BEAKER) 156 mg/dL 70-110 H : TESTED AT [facility] [address] [facility] (test code = 1538) [place], [address]: Cloth Burler/Techni michael ID = [id number] for TABBY FELICEFELA Vitamin D, [id number] 20:23:00 Test Item Value Reference Range Interpretation Comments Vitamin D 25-Hydroxy 51.9 ng/mL 6.6-49.9 H (test code = 2764) HUONG (test code = HUONG) Effective 02/12/2017: Reference Range ChangeNew: 6.6-49.9 ng/mL Previous: 13.0-47.8 ng/mL Recommended Vitamin D Target Range: 30.0-40.0 ng/mLOperator ID - DB Lab Interpretation (test Abnormal code = 88470-4) [facility], [id number] 20:23:00 Test Item Value Reference Range Interpretation Comments VITAMIN D 25-OH (BEAKER) (test 51.9 ng/mL 6.6-49.9 H code = 2764) Effective 02/12/2017: Reference Range ChangeNew: 6.6-49.9 ng/mL Previous: 13.0-47.8 ng/mLRecommended Vitamin D Target Range: 30.0-40.0 ng/mLOperator ID - [id number] 19:35:00 Test Item Value Reference Range Interpretation Comments Ferritin (test code = 135.65 ng/mL 5-275 2276-4) HUONG (test code = HUONG) Cloth Burler ID - BRANDON C Lab Interpretation (test Normal code = 96334-3) [facility]12 and [id number] 19:35:00 Test Item Value Reference Range Interpretation Comments Vitamin B12 (test 1504 pg/mL 213-816 H code = 2132-9) Folate (test code = 19.30 ng/mL See_Comment [Automa rukhsana 2284-8) message] The system which generated this result transmitted reference range : >=7.00. The reference range was not used to interpret this result as normal/abnormal . HUONG (test code = Cloth Burler ID - HUONG) EDASIOperator ID - BRANDON C Lab Interpretation Abnormal (test code = 58891-5) [facility]IN2021-03-05 19:35:00 Test Item Value Reference Range Interpretation Comments FERRITIN (BEAKER) (test code = 135.65 ng/mL 5.00-275.00 361) Cloth Burler ID - BRANDON CVITAMIN B12 AND [id number] 19:35:00 Test Item Value Reference Range Interpretation Comments VITAMIN B12 1504 pg/mL 213-816 H (BEAKER) (test code = 774) FOLATE (BEAKER) 19.30 ng/mL See_Comment [Automated message] (test code = 362) The system which generated this result transmitted ref erence range: >=7.00. The reference range was not used to interpr et this result as normal/abnormal . Cloth Burler ID - EDASIOperator ID - BRANDON CPOC-Glucose [id number] 12:22:00 Test Item Value Reference Range Interpretation Comments POC-Glucose Meter (test 181 mg/dL 70-110 H : JENNIFER JOHNSOND AT [facility] code = 1538) [address] [facility], [address]: Cloth Burler/Techni michael ID = [id number] for NAGI CORNELIUS Lab Interpretation (test Abnormal code = 56030-3) [facility] [id number] 12:22:00 Test Item Value Reference Range Interpretation Comments POC-GLUCOSE METER 181 mg/dL 70-110 H : [facility] (BEAKER) (test code [facility], = 1538) [address]: Cloth Burler/Techni michael ID = [id number] for FARHANA GARCIA POCT-GLUCOSE [id number] 07:53:00 Test Item Value Reference Range Interpretation Comments POC-GLUCOSE METER 119 mg/dL 70-110 H : [facility] (BEAKER) (test code [facility], = 1538) [address]: Cloth Burler/Techni michael ID = [id number] for FARHANA GARCIA Basic Metabolic [id number] 07:20:00 Test Item Value Reference Range Interpretation Comments Sodium (test code = 138 meq/L 128-575 7598-2) Potassium (test code = 4.1 meq/L 3.5-5.1 2823-3) Chloride (test code = 101 meq/L 98-107 2075-0) CO2 (test code = 30 meq/L 22-29 H 2028-9) BUN (test code = 22 mg/dL 7-21 H 3094-0) Creatinine (test code 1.27 mg/dL 0.57-1.25 H = 2160-0) Glucose (test code = 125 mg/dL 70-105 H 2345-7) Calcium (test code = 9.0 mg/dL 8.4-10.2 56244-9) EGFR (test code = 56 mL/min/1.73 sq m [facility] [place] [address]-2) NOT ACCURATE CREATININE CLEARANCE IN PREDICTING GLOMERULAR FILTRATION RATE . ESTIMATED GFR I S NOT APPLICABLE FOR DIALYSIS PATIENTS. HUONG (test code = HUONG) Cloth Burler ID - EDASI Lab Interpretation Abnormal (test code = 16835-0) [facility]esium2021-03-05 07:20:00 Test Item Value Reference Range Interpretation Comments Magnesium (test code = 2.2 mg/dL 1.6-2.6 77989-8) HUONG (test code = HUONG) Cloth Burler ID - EDASI Lab Interpretation (test Normal code = 10360-1) [facility] Campus[facility]osphorus2021-03-05 07:20:00 Test Item Value Reference Range Interpretation Comments Phosphorus (test code = 4.0 mg/dL 2.3-4.7 2777-1) HUONG (test code = HUONG) Cloth Burler ID - EDASI Lab Interpretation (test Normal code = 76652-5) [facility] METABOLIC [id number] 07:20:00 Test Item Value Reference Range Interpretation Comments SODIUM (BEAKER) 138 meq/L 136-145 (test code = 381) POTASSIUM (BEAKER) 4.1 meq/L 3.5-5.1 (test code = 379) CHLORIDE (BEAKER) 101 meq/L 98-107 (test code = 382) CO2 (BEAKER) (test 30 meq/L 22-29 H code = 355) BLOOD UREA NITROGEN 22 mg/dL 7-21 H (BEAKER) (test code = 354) CREATININE (BEAKER) 1.27 mg/dL 0.57-1.25 H (test code = 358) GLUCOSE RANDOM 125 mg/dL 70-105 H (BEAKER) (test code = 652) CALCIUM (BEAKER) 9.0 mg/dL 8.4-10.2 (test code = 697) EGFR (BEAKER) (test 56 mL/min/1.73 ESTIMA RUKHSANA GFR IS code = 1092) sq m NOT ACCURATE CREATININE CLEARANCE IN PREDICTING GLOMERULAR FILTRATION RATE . ESTIMATED GFR I S NOT APPLICABLE FOR DIALYSIS PATIEN TS. Cloth Burler ID - [id number] 07:20:00 Test Item Value Reference Range Interpretation Comments MAGNESIUM (BEAKER) (test code = 2.2 mg/dL 1.6-2.6 627) Cloth Burler ID - [id number] 07:20:00 Test Item Value Reference Range Interpretation Comments PHOSPHORUS (BEAKER) (test code = 4.0 mg/dL 2.3-4.7 604) Cloth Burler ID - EDASIIron, TIBC, % sat. (without ferritin)2020-07-07 06:52:00 Test Item Value Reference Range Interpretation Comments Iron (test code = 2498-4) 75.0 ug/dL 40-160 TIBC (test code = 2500-7) 261 ug/dL 250-450 Iron % Saturation (test 29 % 20-55 code = 2502-3) HUONG (test code = HUONG) Cloth Burler ID - EDASI Lab Interpretation (test Normal code = 90264-1) [facility], TIBC, % SAT. (WITHOUT FERRITIN)2020-07-07 06:52:00 Test Item Value Reference Range Interpretation Comments IRON (BEAKER) (test code = 547) 75.0 ug/dL 40.0-160.0 TOTAL IRON BINDING CAPACITY 261 ug/dL 250-450 (BEAKER) (test code = 769) IRON % SATURATION (2) (BEAKER) 29 % 20-55 (test code = 2590) Cloth Burler ID - EDASICBC with platelet count + automated [id number] 06:47:00 Test Item Value Reference Range Interpretation Comments WBC (test code = 6690-2) 6.8 See_Comment [A utomated message] The system [employer] generated this result transmitted ref erence range: 3.5 - 10 .5 K/L. The refe rence range was not u sed to interpret this result as normal/abnor mal. RBC (test code = 789-8) 3.41 See_Comment L [Au tomated message] The system [employer] generated this result transmitted ref erence range: 4.63 - 6 .08 M/L. The refe rence range was not u sed to interpret this result as normal/abnor mal. MCHC (test code = 786-4) 31.1 See_Comment L [A utomated message] The system [employer] [facility] generated this result transmitted ref erence range: 32.3 - 3 6.5 GM/DL. The refe rence range was not u sed to interpret this result as normal/abnor mal. Hematocrit (test code = 31.8 % 40.1-51 L 4544-3) MCV (test code = 787-2) 93.3 fL 79-92.2 H MCH (test code = 785-6) 29.0 pg 25.7-32.2 RDW (test code = 788-0) 23.2 % 11.6-14.4 H Platelets (test code = 278 See_Comment [Aut omated message] 777-3) The system [employer] generated this result transmitted ref erence range: 150 - 45 0 K/CU MM. The referen ce range was not u sed to interpret this result as normal/abnor mal. MPV (test code = 9.2 fL 9.4-12.4 L 79878-7) nRBC (test code = 413) 0 See_Comment [Aut omated message] The system [employer] generated this result transmitted ref erence range: 0 - 0 /1 00 WBC. The refere nce range was not u sed to interpret this result as normal/abnor mal. % Neutros (test code = 50 % 429) % Lymphs (test code = 29 % 430) % Monos (test code = 9 % 431) % Eos (test code = 432) 8 % % Baso (test code = 437) 2 % # Neutros (test code = 3.36 See_Comment [Aut omated message] 670) The system [employer] generated this result transmitted ref erence range: 1.78 - 5 .38 K/L. The refe rence range was not u sed to interpret this result as normal/abnor mal. # Lymphs (test code = 1.99 See_Comment [Auto mated message] 414) The system [employer] generated this result transmitted ref erence range: 1.32 - 3 .57 K/L. The refe rence range was not u sed to interpret this result as normal/abnor mal. # Monos (test code = 0.63 See_Comment [Autom ated message] 415) The system [employer] generated this result transmitted ref erence range: 0.30 - 0 .82 K/L. The refe rence range was not u sed to interpret this result as normal/abnor mal. # Eos (test code = 416) 0.55 See_Comment H [Au tomated message] The system [employer] generated this result transmitted ref erence range: 0.04 - 0 .54 K/L. The refe rence range was not u sed to interpret this result as normal/abnor mal. # Baso (test code = 417) 0.15 See_Comment H [A utomated message] The system [employer] [facility] generated this result transmitted ref erence range: 0.01 - 0 .08 K/L. The refe rence range was not u sed to interpret this result as normal/abnor mal. Immature 2 % 0-1 H Granulocytes-Relative (test code = 2801) Lab Interpretation (test Abnormal code = 90600-3) [facility] W/PLT COUNT & AUTO [id number] 06:47:00 Test Item Value Reference Range Interpretation Comments WHITE BLOOD CELL COUNT (BEAKER) 6.8 K/ L 3.5-10.5 (test code = 775) RED BLOOD CELL COUNT (BEAKER) 3.41 M/ L 4.63-6.08 L (test code = 761) HEMOGLOBIN (BEAKER) (test code = 9.9 GM/DL 13.7-17.5 L 410) HEMATOCRIT (BEAKER) (test code = 31.8 % 40.1-51.0 L 411) MEAN CORPUSCULAR VOLUME (BEAKER) 93.3 fL 79.0-92.2 H (test code = 753) MEAN CORPUSCULAR HEMOGLOBIN 29.0 pg 25.7-32.2 (BEAKER) (test code = 751) MEAN CORPUSCULAR HEMOGLOBIN CONC 31.1 GM/DL 32.3-36.5 L (BEAKER) (test code = 752) RED CELL DISTRIBUTION WIDTH 23.2 % 11.6-14.4 H (BEAKER) (test code = 412) PLATELET COUNT (BEAKER) (test 278 K/CU MM 150-450 code = 756) MEAN PLATELET VOLUME (BEAKER) 9.2 fL 9.4-12.4 L (test code = 754) NUCLEATED RED BLOOD CELLS 0 /100 WBC 0-0 (BEAKER) (test code = 413) NEUTROPHILS RELATIVE PERCENT 50 % (BEAKER) (test code = 429) LYMPHOCYTES RELATIVE PERCENT 29 % (BEAKER) (test code = 430) MONOCYTES RELATIVE PERCENT 9 % (BEAKER) (test code = 431) EOSINOPHILS RELATIVE PERCENT 8 % (BEAKER) (test code = 432) BASOPHILS RELATIVE PERCENT 2 % (BEAKER) (test code = 437) NEUTROPHILS ABSOLUTE COUNT 3.36 K/ L 1.78-5.38 (BEAKER) (test code = 670) LYMPHOCYTES ABSOLUTE COUNT 1.99 K/ L 1.32-3.57 (BEAKER) (test code = 414) MONOCYTES ABSOLUTE COUNT (BEAKER) 0.63 K/ L 0.30-0.82 (test code = 415) EOSINOPHILS ABSOLUTE COUNT 0.55 K/ L 0.04-0.54 H (BEAKER) (test code = 416) BASOPHILS ABSOLUTE COUNT (BEAKER) 0.15 K/ L 0.01-0.08 H (test code = 417) IMMATURE GRANULOCYTES-RELATIVE 2 % 0-1 H PERCENT (BEAKER) (test code = 2801) POCT-GLUCOSE [id number] 11:33:00 Test Item Value Reference Range Interpretation Comments POC-GLUCOSE METER 135 mg/dL 70-110 H : TESTED A T [facility] 6720 (BEAKER) (test code = MIKHAILEL Estevez [facility], 1538) [address]: Cloth Burler/Techni michael ID = [id number] for St ruthykarsten, Dolly CT, BRAIN, WITHOUT [id number] 09:48:00Unlisted Reason for Exam - Click Yes and Enter Reason Below->YesUnlisted Reason for Exam->[facility] : 1945 Sex: MFINAL REPORT CT Head without contrast CLINICAL HISTORY: Unlisted R kun for ExamSDH TECHNIQUE: Contiguous axial CT images through the head without contrast. This examwas performed according to the departmental dose optimization program which includes automated exposure control, adjustment of the mA and/or kV according to the patient size, and/or use of an iterativereconstruction technique. COMPARISON: 07/03/2020 FINDINGS: There are two new interval right calvarial fatemeh holes and placement of a right-sided extra-axial drainage catheter. The right cerebral convexitysubdural hematoma has slightly decreased in size. The left cerebral convexity subdural hematoma is unchanged. There is new bifrontal pneumocephalus. There is decreased overall mass effect with decreased leftward midline shift of the septum pellucidum. There is no hydrocephalus. There is atherosclerotic calcification of the intracranial circulation. IMPRESSION: Since 07/03/2020, decreased size of the right-sided subdural hematoma status post drainage, and unchanged size of the left-sided subdural hematoma. Overall mass effect and leftward midline shift has decreased. Signed: Case Abrams [facility] CENTEReport Verified Date/Time: 07/06/2020 09:48:25 Reading Location: [facility] C[address] Neuro Reading Room CT brain without IV [id number] 09:48:00Interface, External Ris In - 07/06/2020 9:[address] Head without contrast CLINICAL HISTORY: Unlisted Reason for ExamSDH TECHNIQUE: Contiguous axial CT images through the head without contrast. This exam was performed according to the departmental dose optimization program which includes automated exposure control, adjustment of the mA and/or kV according to the patient size, and/or use of an iterative reconstruction technique. COMPARISON: 07/03/2020 FINDINGS: There are two new interval right calvarial fatemeh holes and placement of a right-sided extra-axial drainage catheter. The right cerebral convexity subdural hematoma has slightly decreased in size. The left cerebral convexity subdural hematoma is unchanged. There is new bifrontal pneumocephalus. There is decreased overall mass effect with decreased leftward midline shift of the septum pellucidum. There is no hydrocephalus. There is atherosclerotic calcification of the intracranial circulation. IMPRESSION: Since 07/03/2020, decreased size of the right-sided subdural hematoma status post drainage, and unchanged size of the left-sided subdural hematoma. Overall mass effect and leftward midline shift has decreased. Signed: Case Abrams MDReport Verified Date/Time: 07/06/2020 09:48:25 Reading Location: [facility] C0[facility] [id number] 06:37:00 Test Item Value Reference Range Interpretation Comments POC-GLUCOSE METER 137 mg/dL 70-110 H : TESTED A T [facility] 6720 (BEAKER) (test code = [place], 1538) [address]: Cloth Burler/Techni michael ID = [id number] for ELYSE MARLOW BASIC METABOLIC [id number] 04:16:00 Test Item Value Reference Range Interpretation Comments SODIUM (BEAKER) 141 meq/L 136-145 (test code = 381) POTASSIUM (BEAKER) 3.6 meq/L 3.5-5.1 (test code = 379) CHLORIDE (BEAKER) 103 meq/L 98-107 (test code = 382) CO2 (BEAKER) (test 27 meq/L 22-29 code = 355) BLOOD UREA NITROGEN 19 mg/dL 7-21 (BEAKER) (test code = 354) CREATININE (BEAKER) 1.10 mg/dL 0.57-1.25 (test code = 358) GLUCOSE RANDOM 130 mg/dL 70-105 H (BEAKER) (test code = 652) CALCIUM (BEAKER) 9.0 mg/dL 8.4-10.2 (test code = 697) EGFR (BEAKER) (test 66 mL/min/1.73 ESTIMA RUKHSANA GFR IS code = 1092) sq m NOT ACCURATE CREATININE CLEARANCE IN PREDICTING GLOMERULAR FILTRATION RATE . ESTIMATED GFR I S NOT APPLICABLE FOR DIALYSIS PATIEN TS. Cloth Burler ID - ALBINO [id number] 04:16:00 Test Item Value Reference Range Interpretation Comments MAGNESIUM (BEAKER) (test code = 2.0 mg/dL 1.6-2.6 627) Cloth Burler ID - ALBINO [id number] 04:16:00 Test Item Value Reference Range Interpretation Comments PHOSPHORUS (BEAKER) (test code = 2.6 mg/dL 2.3-4.7 604) Cloth Burler RENA POSADA [facility] W/PLT COUNT & AUTO [id number] 03:46:00 Test Item Value Reference Range Interpretation Comments WHITE BLOOD CELL COUNT (BEAKER) 8.0 K/ L 3.5-10.5 (test code = 775) RED BLOOD CELL COUNT (BEAKER) 3.75 M/ L 4.63-6.08 L (test code = 761) HEMOGLOBIN (BEAKER) (test code = 10.9 GM/DL 13.7-17.5 L 410) HEMATOCRIT (BEAKER) (test code = 33.8 % 40.1-51.0 L 411) MEAN CORPUSCULAR VOLUME (BEAKER) 90.1 fL 79.0-92.2 (test code = 753) MEAN CORPUSCULAR HEMOGLOBIN 29.1 pg 25.7-32.2 (BEAKER) (test code = 751) MEAN CORPUSCULAR HEMOGLOBIN CONC 32.2 GM/DL 32.3-36.5 L (BEAKER) (test code = 752) RED CELL DISTRIBUTION WIDTH 22.5 % 11.6-14.4 H (BEAKER) (test code = 412) PLATELET COUNT (BEAKER) (test 311 K/CU MM 150-450 code = 756) MEAN PLATELET VOLUME (BEAKER) 9.0 fL 9.4-12.4 L (test code = 754) NUCLEATED RED BLOOD CELLS 0 /100 WBC 0-0 (BEAKER) (test code = 413) NEUTROPHILS RELATIVE PERCENT 50 % (BEAKER) (test code = 429) LYMPHOCYTES RELATIVE PERCENT 32 % (BEAKER) (test code = 430) MONOCYTES RELATIVE PERCENT 8 % (BEAKER) (test code = 431) EOSINOPHILS RELATIVE PERCENT 5 % (BEAKER) (test code = 432) BASOPHILS RELATIVE PERCENT 3 % (BEAKER) (test code = 437) NEUTROPHILS ABSOLUTE COUNT 3.94 K/ L 1.78-5.38 (BEAKER) (test code = 670) LYMPHOCYTES ABSOLUTE COUNT 2.58 K/ L 1.32-3.57 (BEAKER) (test code = 414) MONOCYTES ABSOLUTE COUNT (BEAKER) 0.61 K/ L 0.30-0.82 (test code = 415) EOSINOPHILS ABSOLUTE COUNT 0.43 K/ L 0.04-0.54 ([facility]) (test code = 416) BASOPHILS ABSOLUTE COUNT ([facility]) 0.21 K/ L 0.01-0.08 H (test code = 417) IMMATURE GRANULOCYTES-RELATIVE 2 % 0-1 H PERCENT ([facility]) (test code = 2801) POCT-GLUCOSE [id number] 00:34:00 Test Item Value Reference Range Interpretation Comments POC-GLUCOSE METER 115 mg/dL 70-110 H : [facility] ([facility]) (test code = [facility], 1538) [address]: Cloth Burler/Techni michael ID = [id number] for Maryan Mcfarlane POCT-GLUCOSE [id number] 17:25:00 Test Item Value Reference Range Interpretation Comments POC-GLUCOSE METER 111 mg/dL 70-110 H : TESTED A [facility] 6720 ([facility]) (test code = [facility], 1538) [address]: Cloth Burler/Techni michael ID = [id number] for St e[place], [place] POCT-GLUCOSE [id number] 12:32:00 Test Item Value Reference Range Interpretation Comments POC-GLUCOSE METER 157 mg/dL 70-110 H : Notified RN/MD: ([facility]) (test code = TESTED AT [facility] 6720 1538) [facility], [address]: Cloth Burler/Techni michael ID = [id number] for St eptoe, [place] Troponin [id number] 07:49:00 Test Item Value Reference Range Interpretation Comments Troponin I (test code = 0.01 ng/mL 0-0.03 72120-8) HUONG (test code = HUONG) Troponin I (TnI) levels must be interpreted in the context of the presenting symptoms and the clinical findings. Elevated TnI levels indicate myocardial damage, but are not specific for ischemic heart disease. Elevated TnI levels are seen in patients with other cardiac conditions (including myocarditis and congestive heart failure), and slight TnI elevations occur in patients with other conditions, including sepsis, renal failure, acidosis, acute neurological disease, and persistent tachyarrhythmia.Opera tor ID - ROSIANG Lab Interpretation (test Normal code = 35465-7) [facility] Campus[facility] [id number] 07:49:00 Test Item Value Reference Range Interpretation Comments TROPONIN I (BEAKER) (test code = 0.01 ng/mL 0.00-0.03 397) Troponin I (TnI) levels must be interpreted in the context of the presenting symptoms and the clinical findings. Elevated TnI levels indicate myocardial damage, but are not specific for ischemic heart disease. Elevated TnI levels are seen in patients with other cardiac conditions (including myocarditis and congestive heart failure), and slight TnI elevations occur in patients with other conditions, including sepsis, renal failure, acidosis, acute neurological disease, and persistent tachyarrhythmia.Cloth Burler ID - ROSNORMGBASIC METABOLIC [id number] 03:30:00 Test Item Value Reference Range Interpretation Comments SODIUM (BEAKER) 141 meq/L 136-145 (test code = 381) POTASSIUM (BEAKER) 3.9 meq/L 3.5-5.1 (test code = 379) CHLORIDE (BEAKER) 107 meq/L 98-107 (test code = 382) CO2 (BEAKER) (test 27 meq/L 22-29 code = 355) BLOOD UREA NITROGEN 19 mg/dL 7-21 (BEAKER) (test code = 354) CREATININE (BEAKER) 1.12 mg/dL 0.57-1.25 (test code = 358) GLUCOSE RANDOM 120 mg/dL 70-105 H (BEAKER) (test code = 652) CALCIUM (BEAKER) 8.0 mg/dL 8.4-10.2 L (test code = 697) EGFR (BEAKER) (test 64 mL/min/1.73 ESTIMA RUKHSANA GFR IS code = 1092) sq m NOT ACCURATE CREATININE CLEARANCE IN PREDICTING GLOMERULAR FILTRATION RATE . ESTIMATED GFR I S NOT APPLICABLE FOR DIALYSIS PATIEN TS. Cloth Burler ID - ALBINO [id number] 03:30:00 Test Item Value Reference Range Interpretation Comments MAGNESIUM (BEAKER) (test code = 2.1 mg/dL 1.6-2.6 627) Cloth Burler ID - ALBINO [id number] 03:30:00 Test Item Value Reference Range Interpretation Comments PHOSPHORUS (BEAKER) (test code = 2.3 mg/dL 2.3-4.7 604) Cloth Burler ID - ALBINO [facility] W/PLT COUNT & AUTO [id number] 03:20:00 Test Item Value Reference Range Interpretation Comments WHITE BLOOD CELL COUNT (BEAKER) 6.5 K/ L 3.5-10.5 (test code = 775) RED BLOOD CELL COUNT (BEAKER) 3.10 M/ L 4.63-6.08 L (test code = 761) HEMOGLOBIN (BEAKER) (test code = 9.0 GM/DL 13.7-17.5 L 410) HEMATOCRIT (BEAKER) (test code = 28.9 % 40.1-51.0 L 411) MEAN CORPUSCULAR VOLUME (BEAKER) 93.2 fL 79.0-92.2 H (test code = 753) MEAN CORPUSCULAR HEMOGLOBIN 29.0 pg 25.7-32.2 (BEAKER) (test code = 751) MEAN CORPUSCULAR HEMOGLOBIN CONC 31.1 GM/DL 32.3-36.5 L (BEAKER) (test code = 752) RED CELL DISTRIBUTION WIDTH 22.7 % 11.6-14.4 H (BEAKER) (test code = 412) PLATELET COUNT (BEAKER) (test 243 K/CU MM 150-450 code = 756) MEAN PLATELET VOLUME (BEAKER) 8.7 fL 9.4-12.4 L (test code = 754) NUCLEATED RED BLOOD CELLS 0 /100 WBC 0-0 (BEAKER) (test code = 413) NEUTROPHILS RELATIVE PERCENT 51 % (BEAKER) (test code = 429) LYMPHOCYTES RELATIVE PERCENT 35 % (BEAKER) (test code = 430) MONOCYTES RELATIVE PERCENT 8 % (BEAKER) (test code = 431) EOSINOPHILS RELATIVE PERCENT 4 % (BEAKER) (test code = 432) BASOPHILS RELATIVE PERCENT 2 % (BEAKER) (test code = 437) NEUTROPHILS ABSOLUTE COUNT 3.30 K/ L 1.78-5.38 (BEAKER) (test code = 670) LYMPHOCYTES ABSOLUTE COUNT 2.23 K/ L 1.32-3.57 (BEAKER) (test code = 414) MONOCYTES ABSOLUTE COUNT (BEAKER) 0.49 K/ L 0.30-0.82 (test code = 415) EOSINOPHILS ABSOLUTE COUNT 0.23 K/ L 0.04-0.54 (BEAKER) (test code = 416) BASOPHILS ABSOLUTE COUNT (BEAKER) 0.13 K/ L 0.01-0.08 H (test code = 417) IMMATURE GRANULOCYTES-RELATIVE 1 % 0-1 PERCENT (BEAKER) (test code = 2801) POCT-GLUCOSE [id number] 00:09:00 Test Item Value Reference Range Interpretation Comments POC-GLUCOSE METER 108 mg/dL 70-110 : TESTED A T [facility] 6720 ([place]) (test code = [facility]ER Esetvez [facility], 1538) [address]: Cloth Burler/Techni michael ID = [id number] for ELYSE MARLOW POCT-GLUCOSE [id number] 17:45:00 Test Item Value Reference Range Interpretation Comments POC-GLUCOSE METER 108 mg/dL 70-110 : TESTED A T [facility] 6720 ([place]) (test code = SHER Estevez [facility], 1538) [address]: Cloth Burler/Techni michael ID = [id number] for ISMAEL GRAMAJO 2D Echo W/Doppler(CW/PW/Color)2020-07-04 13:10:15Ejection FractionSLEH ECHO HEARTLAB MKCKESSON CPACSInterface, External Ris In - 07/04/2020 1:10 PM C STTransthoracic Echocardiography Report (TTE) Demographics Patient Name DARYA TADEO Date of Study 07/04/2020 NIRAV MALIN Gender Male Visit Number [id number] Race Unknown Room Number 7512 Number Date of 1945 Referring [facility] Physician MIMA Age 75 year(s) Sr. Operations Manager Tamara Altman [facility] [employer] Jessica Goodman RDCS Interpreting Rachelle Huddleston MD Physician Procedure Type of Study TTE procedure:2DECHO W DOPPLER(CW/PW/COLOR) (Routine) Indications:Known or suspected heart failure.Clinical HistoryCOPD DM CAD S/P STENTHGB 9.1HCT 28.6 %Height: 72 inches Weight: 63.05 kg (139 lbs) BSA: 1.83 m^2 BMI: 18.85 kg/m^2HR: 69 bpm BP: 138/64 mmHg Summary 1. The left ventricle is chamber size (by vol index) is severely enlarged (male - LVED vol >100ml/m2). Mild concentric LV hypertrophy. All of the LV segments are mildly hypokinetic . Global LV systolic function mildly reduced . LVEF by Tesfaye's method of disk assessment is mildly reduced (45-49%) . Diastolic function is indeterminate. 2. The right ventricular chamber size and systolicfunction are within normal limits. TAPSE 2.5 cm, S' 15 cm/sec. 3. LA size is moderately enlarged (42-48 ml/m2) . RA size is normal. 4. A trace of tricuspid regurgitation. Peak systolic pressure may be underestimated; partial TR signal. Estimated peak systolic pressure is at least 30-35 mmHg. The estimated RA pressure by IVC dynamics 5-10 mm Hg . 5. No pericardial effusion is visualized. Previous Study No prior studies available for comparison. Signature Findings Technical Quality: Technically adequate exam. Rhythm/BP Regular sinus rhythm during the exam. Left Ventricle The left ventricle is chamber size (by vol index) is severely enlarged (male - LVED vol >100ml/m2). Mild concentric LV hypertrophy. All of the LV segments are mildly hypokinetic . Global LV systolic function mildly reduced . LVEF by Tesfaye's method of disk assessment is mildly reduced (45-49%) . Diastolic function is indeterminate. Left Atrium LA size is moderately enlarged (42-48 ml/m2) . Right Ventricle The right ventricular chamber size and systolic function are within normallimits. TAPSE 2.5 cm, S' 15 cm/sec. Right Atrium RA size is normal. Aortic Valve Normal tri-leaflet Aortic Valve. Mild AoV cusp thicke shoshana. Mild AoV cusp calcification. No evidence of aortic stenosis. No evidence of aortic regurgitation. Mitral Valve MildMV leaflet thickening. Mild mitral regurgitation. Tricuspid Valve TV structure is normal. A trace of tricuspid regurgitation. Peak systolic pressure may be underestimated; partial TR signal. Estimated peak systolic pressure is at least 30-35 mmHg. Pulmonic Valve Normal PV structure and function by limited views and Doppler. AortaAortic root size (SInus of Valsalva diameter) is at the upper limit of normalindexed to BSA. Proximal ascending aorta size is mildly dilated . Pericardium No pericardial effusion is visualized. IVC/SVC/PA/PV/Pleural The estimated RA pressureby IVC dynamics 5-10 mm Hg . Chambers/Structures Left Atrium LA Dimension: 4.4 cm LA Area: 18.94 cm^2 LA Volume: 87.46 ml LA Vol. Index: 48 ml/m^2 Left Ventricle LVIDd: 5.86 cm LV Septum Diastolic: 1.25 cm LV PW Diastolic: 1.29 cm LVEDV Tesfaye's:195 ml LVESV Tesfaye's:100 ml LVEF Tesfaye's: 48 % LVEDVI: 107 ml/m^2 LVESVI: 55 ml/m^2 LVOT Diameter: 2.42 cm Right Ventricle RV Diast Dim.: 3.5 cm RV Systolic Pressure: 34.57 mmHg RVOT VTI: 18.44 cm TAPSE: 2.5 cm Aorta Ao Root S of Lula.: 3.87 cm Ascending Aorta: 3.7 cm Doppler/Quantitative Measurements Mitral Valve MV Peak E-Wave: 0.96 m/s MV Peak A-Wave: 1.26 m/s Peak Velocity: 1.14 m/s E/A Ratio: 0.76 Mean Velocity: 0.64 m/s Peak Gradient: 3.65 mmHg Mean Gradient: 1.83 mmHg Deceleration Time: 251.9 msec Area (continuity): 3.25 cm^2 MV VTI: 33.01 cm MV Eugenio. Peak: Tissue Doppler E' Lateral Velocity: 0.09 m/s E/E': 10.95 Aortic Valve Peak Velocity: 1.49 m/s Mean Velocity: 1.01 m/s Peak Gradient: 8.88 mmHg Mean Gradient: 4.72 mmHg AV Area (continuity): 3.75 cm^2 AV VTI: 28.62 cm AV DVI: 0.82 LVOT Peak Velocity: 1.09 m/s Peak Gradient: 4.76 mmHg Mean Velocity: 0.68 m/s Mean Gradient: 2.26 mmHg LVOT Diameter: 2.42 cm LVOT VTI: 23.33 cm LVOT Area: 4.6 cm^2 LVOT SV:107.25 ml LVOT CO: 7.4 l/min LVOT CI: 4.04 l/min/m^2 Tricuspid Valve Estimated RAP: 10 mmHg TR Velocity: 2.48 m/s TR Gradient: 24.57 mmHg Pulmonic Valve EstimatedPASP: 34.57 mmHg [facility] METABOLIC [id number] 11:59:00 Test Item Value Reference Range Interpretation Comments SODIUM (BEAKER) 140 meq/L 136-145 (test code = 381) POTASSIUM (BEAKER) 3.5 meq/L 3.5-5.1 (test code = 379) CHLORIDE (BEAKER) 105 meq/L 98-107 (test code = 382) CO2 (BEAKER) (test 27 meq/L 22-29 code = 355) BLOOD UREA NITROGEN 21 mg/dL 7-21 (BEAKER) (test code = 354) CREATININE (BEAKER) 1.25 mg/dL 0.57-1.25 (test code = 358) GLUCOSE RANDOM 156 mg/dL 70-105 H (BEAKER) (test code = 652) CALCIUM (BEAKER) 8.2 mg/dL 8.4-10.2 L (test code = 697) EGFR (BEAKER) (test 57 mL/min/1.73 ESTIMA RUKHSANA GFR IS code = 1092) sq m NOT ACCURATE CREATININE CLEARANCE IN PREDICTING GLOMERULAR FILTRATION RATE . ESTIMATED GFR I S NOT APPLICABLE FOR DIALYSIS PATIEN TS. Cloth Burler ID - SMPOCT-GLUCOSE [id number] 11:46:00 Test Item Value Reference Range Interpretation Comments POC-GLUCOSE METER 149 mg/dL 70-110 H : TESTED A T [facility] 6720 (BEAKER) (test code = [place], 1538) [address]: Cloth Burler/Techni michael ID = [id number] for Wi lliams, Irene Hemoglobin and [id number] 11:37:00 Test Item Value Reference Range Interpretation Comments Hemoglobin (test code 9.2 See_Comment L [Auto mated = 786-4) message] The system which generated this result transmit rukhsana reference range : 13.7 - 17.5 GM/ DL. The reference range was not u sed to interpret th is result as normal/abnormal . Hematocrit (test code 29.3 % 40.1-51 L = 4544-3) HUONG (test code = HUONG) Cloth Burler ID - [id number] Lab Interpretation Abnormal (test code = 19397-7) [facility] CampusHEMOGLOBIN AND [id number] 11:37:00 Test Item Value Reference Range Interpretation Comments HEMOGLOBIN (BEAKER) (test code = 9.2 GM/DL 13.7-17.5 L 410) HEMATOCRIT (BEAKER) (test code = 29.3 % 40.1-51.0 L 411) Cloth Burler ID - [id number] Kinase (CK)2020-07-04 10:38:00 Test Item Value Reference Range Interpretation Comments Total CK (test code = 71 U/L 29-200 2157-6) HUONG (test code = HUONG) Cloth Burler ID - ALBINO M Lab Interpretation (test Normal code = 48165-6) [facility] CampusCREAT[facility] KINASE (CK)2020-07-04 10:38:00 Test Item Value Reference Range Interpretation Comments CREATINE KINASE TOTAL (BEAKER) (test 71 U/L 29-200 code = 380) Cloth Burler ID - ALBINO MPOCT-GLUCOSE [id number] 08:00:00 Test Item Value Reference Range Interpretation Comments POC-GLUCOSE METER 105 mg/dL 70-110 : TESTED A T [facility] 6720 (BEAKER) (test code = [place], 1538) [address]: Cloth Burler/Techni michael ID = [id number] for ISMAEL GRAMAJO BASIC METABOLIC [id number] 03:45:00 Test Item Value Reference Range Interpretation Comments SODIUM (BEAKER) 141 meq/L 136-145 (test code = 381) POTASSIUM (BEAKER) 4.1 meq/L 3.5-5.1 (test code = 379) CHLORIDE (BEAKER) 108 meq/L 98-107 H (test code = 382) CO2 (BEAKER) (test 24 meq/L 22-29 code = 355) BLOOD UREA NITROGEN 23 mg/dL 7-21 H (BEAKER) (test code = 354) CREATININE (BEAKER) 1.31 mg/dL 0.57-1.25 H (test code = 358) GLUCOSE RANDOM 121 mg/dL 70-105 H (BEAKER) (test code = 652) CALCIUM (BEAKER) 8.0 mg/dL 8.4-10.2 L (test code = 697) EGFR (BEAKER) (test 54 mL/min/1.73 ESTIMA RUKHSANA GFR IS code = 1092) sq m NOT ACCURATE CREATININE CLEARANCE IN PREDICTING GLOMERULAR FILTRATION RATE . ESTIMATED GFR I S NOT APPLICABLE FOR DIALYSIS PATIEN TS. Cloth Burler ID - [id number] 03:45:00 Test Item Value Reference Range Interpretation Comments MAGNESIUM (BEAKER) (test code = 2.1 mg/dL 1.6-2.6 627) Cloth Burler ID - [id number] 03:45:00 Test Item Value Reference Range Interpretation Comments PHOSPHORUS (BEAKER) (test code = 2.9 mg/dL 2.3-4.7 604) Cloth Burler ID - SMProthromin time/[id number] 03:37:00 Test Item Value Reference Interpretation Comments Range Protime (test code = 14.7 See_Comment H [Autom ated 5902-2) message] The system which generated this result transmitted reference range : 11.9 - 14.2 seconds. The reference range was not used to interpret this result as normal/abnormal . INR (test code = 1.18 See_Comment [Automated 9241-6) message] The system which generated this result transmitted reference range : <=5.90. The reference range was not used to interpret this result as normal/abnormal . HUONG (test code = Effective 09/30/2018: HUONG) PT Reference Range ChangeNew: 11.9-14.2 Previous: 11.7-14.7 RECOMMENDED COUMADIN/WARFARIN INR THERAPY RANGESSTANDARD DOSE: 2.0-3.0 Includes: PROPHYLAXIS for venous thrombosis, systemic embolization; TREATMENT for venous thrombosis and/or pulmonary embolus.HIGH RISK: Target INR is 2.5-3.5 for patients wiht mechanical heart valves. Lab Interpretation Abnormal (test code = 75442-0) [facility]TT[facility] 03:37:00 Test Item Value Reference Range Interpretation Comments PTT (test code = 27335-2) 31.1 See_Comment [ Automated message] The system whic h generated this result transmitted ref erence range: 22.5 - 3 6.0 seconds. The re ference range was not u sed to interpret this result as normal/abnor mal. Lab Interpretation (test Normal code = 62224-4) [facility] CampusPROTHROMBIN TIME/[id number] 03:37:00 Test Item Value Reference Range Interpretation Comments PROTIME (BEAKER) 14.7 seconds 11.9-14.2 H (test code = 759) INR (BEAKER) (test 1.18 See_Comment [Automat ed message] code = 370) The system [facility] generated this result transmitted ref erence range: <=5.90. The reference range was not used to int erpret this result as normal/abnormal . Effective 09/30/2018: PT Reference Range ChangeNew: 11.9-14.2 Previous: 11.7- 14.7RECOMMENDED COUMADIN/WARFARIN INR THERAPY RANGESSTANDARD DOSE: 2.0-3.0 Includes: PROPHYLAXIS for venous thrombosis, systemic embolization; TREATMENT for venous thrombosis and/or pulmonary embolus.HIGH RISK: Target INR is2.5-3.5 for patients wiht mechanical heart valves.[id number] 03:37:00 Test Item Value Reference Range Interpretation Comments PARTIAL THROMBOPLASTIN TIME 31.1 seconds 22.5-36.0 (BEAKER) (test code = 760) CBC W/PLT COUNT & AUTO [id number] 03:34:00 Test Item Value Reference Range Interpretation Comments WHITE BLOOD CELL COUNT (BEAKER) 7.7 K/ L 3.5-10.5 (test code = 775) RED BLOOD CELL COUNT (BEAKER) 2.89 M/ L 4.63-6.08 L (test code = 761) HEMOGLOBIN (BEAKER) (test code = 8.5 GM/DL 13.7-17.5 L 410) HEMATOCRIT (BEAKER) (test code = 26.9 % 40.1-51.0 L 411) MEAN CORPUSCULAR VOLUME (BEAKER) 93.1 fL 79.0-92.2 H (test code = 753) MEAN CORPUSCULAR HEMOGLOBIN 29.4 pg 25.7-32.2 (BEAKER) (test code = 751) MEAN CORPUSCULAR HEMOGLOBIN CONC 31.6 GM/DL 32.3-36.5 L (BEAKER) (test code = 752) RED CELL DISTRIBUTION WIDTH 22.5 % 11.6-14.4 H (BEAKER) (test code = 412) PLATELET COUNT (BEAKER) (test 283 K/CU MM 150-450 code = 756) MEAN PLATELET VOLUME (BEAKER) 9.1 fL 9.4-12.4 L (test code = 754) NUCLEATED RED BLOOD CELLS 0 /100 WBC 0-0 (BEAKER) (test code = 413) NEUTROPHILS RELATIVE PERCENT 72 % (BEAKER) (test code = 429) LYMPHOCYTES RELATIVE PERCENT 19 % (BEAKER) (test code = 430) MONOCYTES RELATIVE PERCENT 6 % (BEAKER) (test code = 431) EOSINOPHILS RELATIVE PERCENT 1 % (BEAKER) (test code = 432) BASOPHILS RELATIVE PERCENT 1 % (BEAKER) (test code = 437) NEUTROPHILS ABSOLUTE COUNT 5.55 K/ L 1.78-5.38 H (BEAKER) (test code = 670) LYMPHOCYTES ABSOLUTE COUNT 1.47 K/ L 1.32-3.57 (BEAKER) (test code = 414) MONOCYTES ABSOLUTE COUNT (BEAKER) 0.48 K/ L 0.30-0.82 (test code = 415) EOSINOPHILS ABSOLUTE COUNT 0.06 K/ L 0.04-0.54 (BEAKER) (test code = 416) BASOPHILS ABSOLUTE COUNT (BEAKER) 0.10 K/ L 0.01-0.08 H (test code = 417) IMMATURE GRANULOCYTES-RELATIVE 1 % 0-1 PERCENT (BEAKER) (test code = 2801) Prepare Leuko-Red [id number] 23:54:00 Test Item Value Reference Range Interpretation Comments Unit ABO (test code = 3001884) B Pos UNIT NUMBER (test code = [id number] 934-0) Status (test code = 4584842) TX_TIMEINCHART Blood Bank Product (test code PLATELETS = 2263) PRODUCT CODE (test code = J9242Y35 933-2) [facility] CampusHEMOGLOBIN AND [id number] 21:51:00 Test Item Value Reference Range Interpretation Comments HEMOGLOBIN (BEAKER) (test code = 9.1 GM/DL 13.7-17.5 L 410) HEMATOCRIT (MIRIAN) (test code = 28.6 % 40.1-51.0 L 411) Cloth Burler ID - 6000POCT-GLUCOSE [id number] 21:44:00 Test Item Value Reference Range Interpretation Comments POC-GLUCOSE METER 158 mg/dL 70-110 H : TESTED A T [facility] 6720 (MIRIAN) (test code = [facility], 1538) [address]: Cloth Burler/Techni michael ID = [id number] for ELYSE MARLOW POCT-GLUCOSE [id number] 16:56:00 Test Item Value Reference Range Interpretation Comments POC-GLUCOSE METER 144 mg/dL 70-110 H : Notified RN/MD: (MIRIAN) (test code = TESTED AT [facility] 6720 1538) DENISE [facility], [address]: Cloth Burler/Techni michael ID = [id number] for ISMAEL GRAMAJO Thromboelastograph (TEG)2020-07-03 13:35:00 Test Item Value Reference Range Interpretation Comments TEG Activated Clotting 2.6 See_Comment L [Aut omated message] Time (test code = The system which 16910-5) generated this result transmitted ref erence range: 4.0 - 7. 0 minutes. The reference range was not used to int erpret this result as normal/abnormal . TEG Fibrinogen Activity 80.7 See_Comment H [Au tomated message] (test code = 92083-2) The sy stem which generated this result transmitted ref erence range: 61.0 - 7 3.0 degrees. The reference range was not used to int erpret this result as normal/abnormal . TEG Platelet Aggregation 72.6 See_Comment H [A utomated message] (test code = 63813-3) The sy stem which generated this result transmitted ref erence range: 55.0 - 6 5.0 MM. The referen ce range was not u sed to interpret this result as normal/abnor mal. TEG Fibrinolysis (test 0.0 % 0-5 code = 32145-9) TEG-H Activated Clotting 2.7 See_Comment L [A utomated message] Time (test code = 1411) The system which generated this result transmitted ref erence range: 4.0 - 7. 0 minutes. The reference range was not used to int erpret this result as normal/abnormal . TEG-H Fibrinogen 79.1 See_Comment H [Automated message] Activity (test code = The sy stem which 1412) generated this result transmitted ref erence range: 61.0 - 7 3.0 degrees. The reference range was not used to int erpret this result as normal/abnormal . TEG-H Platelet 71.5 See_Comment H [Automated m essage] Aggregation (test code = The system which 1413) generated this result transmitted ref erence range: 55.0 - 6 5.0 MM. The referen ce range was not u sed to interpret this result as normal/abnor mal. TEG-H Fibrinolysis (test 1.1 % 0-5 code = 1414) Lab Interpretation (test Abnormal code = 67671-8) [facility] CampusTHROMBOELASTOGRAPH (TEG)2020-07-03 13:35:00 Test Item Value Reference Range Interpretation Comments TEG ACTIVATED CLOTTING TIME 2.6 minutes 4.0-7.0 L (BEAKER) (test code = 1407) TEG FIBRINOGEN ACTIVITY (BEAKER) 80.7 degrees 61.0-73.0 H (test code = 1408) TEG PLT. AGGREGATION (BEAKER) 72.6 MM 55.0-65.0 H (test code = 1409) TEG FIBRINOLYSIS (BEAKER) (test 0.0 % 0.0-5.0 code = 1410) [facility]GH ACTIVATED CLOTTING TIME 2.7 minutes 4.0-7.0 L (BEAKER) (test code = 1411) [facility] FIBRINOGEN ACTIVITY (BEAKER) 79.1 degrees 61.0-73.0 H (test code = 1412) TGH PLT. AGGREGATION (BEAKER) 71.5 MM 55.0-65.0 H (test code = 1413) [facility] FIBRINOLYSIS (BEAKER) (test 1.1 % 0.0-5.0 code = 1414) CT, BRAIN, WITHOUT [id number] 08:29:00Unlisted Reason for Exam - Click Yes and Enter Reason Below->No [facility] : 1945 Sex: MFINAL REPORT CT Head without contrast CLINICAL HISTORY: Cerebral h emorrhage suspected TECHNIQUE: Contiguous axial CT images through the head without contrast. This exam was performed according to the departmental dose optimization program which includes automated exposure control, adjustment of the mA and/or kV according to the patient size, and/or use of an iterative reconstruction technique. COMPARISON: None FINDINGS: A slightly hypodense right cerebral convexitysubdural hematoma measures 1.4 cm in thickness. A slightly hypodense left cerebral convexity subdural hematoma measures 0.6 cm in thickness. There is mass effect on the right greater than left cerebral hemispheres with leftward midline shift of the septum pellucidum by 0.7 cm. There is mild asymmetricdilatation of the left temporal horn compatible with entrapment. There is no definitive CT evidence of acute infarct. There is atherosclerotic calcification of the intracranial circulation. The skull is intact. The visualized paranasal sinuses are well-aerated. IMPRESSION: Right greater than left cerebral convexity subdural hematomas with mass effect and leftward midline shift. Comparison with outside imaging is recommended. The findings were discussed with the critical care neurologist at the timeof dictation. Signed: Case Abrams MDReport Verified Date/Time: 07/03/2020 08:29:18 Reading Location: [address] Neuro Reading Room Electronically signed by: CASE ABRAMS M.D. on 108:29 AMHemoglobin [id number] 08:21:00 Test Item Value Reference Range Interpretation Comments Hemoglobin A1C (test code = 4548-4) 5.7 % 4.3-6.1 Lab Interpretation (test code = Normal 35776-9) [facility] CampusHEMOGLOBIN [id number] 08:21:00 Test Item Value Reference Range Interpretation Comments HEMOGLOBIN A1C (BEAKER) (test code = 5.7 % 4.3-6.1 368) [id number] 07:19:00 Test Item Value Reference Range Interpretation Comments MAGNESIUM (BEAKER) 2.3 mg/dL 1.6-2.6 Specimen slightly (test code = 627) hemolyzed Cloth Burler ID - ALBINO [id number] 07:19:00 Test Item Value Reference Range Interpretation Comments PHOSPHORUS (BEAKER) 2.2 mg/dL 2.3-4.7 L Specimen slightly (test code = 604) hemolyzed Cloth Burler ID - ALBINO MBASIC METABOLIC [id number] 05:56:00 Test Item Value Reference Range Interpretation Comments SODIUM (BEAKER) 142 meq/L 136-145 (test code = 381) POTASSIUM (BEAKER) 4.1 meq/L 3.5-5.1 Specimen slightly (test code = 379) hemolyzed CHLORIDE (BEAKER) 104 meq/L 98-107 (test code = 382) CO2 (BEAKER) (test 28 meq/L 22-29 code = 355) BLOOD UREA NITROGEN 13 mg/dL 7-21 (BEAKER) (test code = 354) CREATININE (BEAKER) 1.12 mg/dL 0.57-1.25 Specimen slightly (test code = 358) hemolyzed GLUCOSE RANDOM 129 mg/dL 70-105 H (BEAKER) (test code = 652) CALCIUM (BEAKER) 8.4 mg/dL 8.4-10.2 (test code = 697) EGFR (BEAKER) (test 64 mL/min/1.73 ESTIMA RUKHSANA GFR IS code = 1092) sq m NOT ACCURATE CREATININE CLEARANCE IN PREDICTING GLOMERULAR FILTRATION RATE . ESTIMATED GFR I S NOT APPLICABLE FOR DIALYSIS PATIEN TS. Cloth Burler ID - ALBINO MCBC W/PLT COUNT & AUTO [id number] 05:06:00 Test Item Value Reference Range Interpretation Comments WHITE BLOOD CELL COUNT (BEAKER) 8.7 K/ L 3.5-10.5 (test code = 775) RED BLOOD CELL COUNT (BEAKER) 3.79 M/ L 4.63-6.08 L (test code = 761) HEMOGLOBIN (BEAKER) (test code = 11.0 GM/DL 13.7-17.5 L 410) HEMATOCRIT (BEAKER) (test code = 34.5 % 40.1-51.0 L 411) MEAN CORPUSCULAR VOLUME (BEAKER) 91.0 fL 79.0-92.2 (test code = 753) MEAN CORPUSCULAR HEMOGLOBIN 29.0 pg 25.7-32.2 (BEAKER) (test code = 751) MEAN CORPUSCULAR HEMOGLOBIN CONC 31.9 GM/DL 32.3-36.5 L (BEAKER) (test code = 752) RED CELL DISTRIBUTION WIDTH 22.4 % 11.6-14.4 H (BEAKER) (test code = 412) PLATELET COUNT (BEAKER) (test 330 K/CU MM 150-450 code = 756) MEAN PLATELET VOLUME (BEAKER) 9.4 fL 9.4-12.4 (test code = 754) NUCLEATED RED BLOOD CELLS 0 /100 WBC 0-0 (BEAKER) (test code = 413) NEUTROPHILS RELATIVE PERCENT 69 % (BEAKER) (test code = 429) LYMPHOCYTES RELATIVE PERCENT 17 % (BEAKER) (test code = 430) MONOCYTES RELATIVE PERCENT 6 % (BEAKER) (test code = 431) EOSINOPHILS RELATIVE PERCENT 4 % (BEAKER) (test code = 432) BASOPHILS RELATIVE PERCENT 2 % (BEAKER) (test code = 437) NEUTROPHILS ABSOLUTE COUNT 6.00 K/ L 1.78-5.38 H (BEAKER) (test code = 670) LYMPHOCYTES ABSOLUTE COUNT 1.47 K/ L 1.32-3.57 (BEAKER) (test code = 414) MONOCYTES ABSOLUTE COUNT (BEAKER) 0.54 K/ L 0.30-0.82 (test code = 415) EOSINOPHILS ABSOLUTE COUNT 0.37 K/ L 0.04-0.54 (BEAKER) (test code = 416) BASOPHILS ABSOLUTE COUNT (BEAKER) 0.16 K/ L 0.01-0.08 H (test code = 417) IMMATURE GRANULOCYTES-RELATIVE 1 % 0-1 PERCENT (BEAKER) (test code = 2801) TSH/Free T4 If [id number] 04:35:00 Test Item Value Reference Range Interpretation Comments TSH (test code = 0.793 See_Comment [Automated 86519-0) message] The system which generated this result transmit rukhsana reference range : 0.350 - 4.940 uIU/mL. The reference range was not used to interpret this result as normal/abnormal . HUONG (test code = HUONG) Cloth Burler RENA POSADA M Lab Interpretation Normal (test code = 28774-4) [facility] [id number] 04:35:00 Test Item Value Reference Range Interpretation Comments THYROID STIMULATING HORMONE 0.793 uIU/mL 0.350-4.940 (BEAKER) (test code = 772) Cloth Burler RENA POSADA MBASIC METABOLIC [id number] 04:21:00 Test Item Value Reference Range Interpretation Comments SODIUM (BEAKER) 141 meq/L 136-145 (test code = 381) POTASSIUM (BEAKER) 3.2 meq/L 3.5-5.1 L (test code = 379) CHLORIDE (BEAKER) 114 meq/L 98-107 H (test code = 382) CO2 (BEAKER) (test 18 meq/L 22-29 L code = 355) BLOOD UREA NITROGEN 9 mg/dL 7-21 (BEAKER) (test code = 354) CREATININE (BEAKER) 0.64 mg/dL 0.57-1.25 (test code = 358) GLUCOSE RANDOM 98 mg/dL 70-105 (BEAKER) (test code = 652) CALCIUM (BEAKER) 6.2 mg/dL 8.4-10.2 L (test code = 697) EGFR (BEAKER) (test 123 mL/min/1.73 ESTIM ATED GFR IS code = 1092) sq m NOT ACCURATE CREATININE CLEARANCE IN PREDICTING GLOMERULAR FILTRATION RATE . ESTIMATED GFR I S NOT APPLICABLE FOR DIALYSIS PATIEN TS. Cloth Burler ID uJan Manuel POSADA MLipid [id number] 04:19:00 Test Item Value Reference Range Interpretation Comments Triglycerides (test 73 mg/dL code = 2571-8) Cholesterol (test code 70 mg/dL = 2093-3) HDL (test code = 20 mg/dL 5-9) LDL Calculated (test 35 mg/dL code = 93929-0) HUONG (test code = HUONG) Triglyceride Reference Range: Low Risk <150 Borderline 150-199 High Risk 200-499 Very High Risk >=500 Cholesterol Reference Range: Low Risk <200 Borderline 200-239 High Risk >240 HDL Cholesterol Reference Range: Low Risk >=60 High Risk <40 LDL Cholesterol Reference Range: Optimal <100 Near Optimal 100-129 Borderline 130-159 High 160-189 Very High >=190 Cloth Burler RENA Felipe [facility] CampusLipase2021-03-[facility] 04:19:00 Test Item Value Reference Range Interpretation Comments Lipase (test code = 5 U/L 8-78 L 3040-3) HUONG (test code = HUONG) Cloth Burler ID Juan Manuel Felipe Lab Interpretation (test Abnormal code = 74213-5) [facility] CampusLIPASE2021-03-01 04:19:00 Test Item Value Reference Range Interpretation Comments LIPASE (BEAKER) (test code = 749) 5 U/L 8-78 L Cloth Burler ID Juan Manuel POSADA [id number] 04:19:00 Test Item Value Reference Range Interpretation Comments MAGNESIUM (BEAKER) (test code = 1.4 mg/dL 1.6-2.6 L 627) Cloth Burler ID Juan Manuel POSADA MLIPID [id number] 04:19:00 Test Item Value Reference Range Interpretation Comments TRIGLYCERIDES (BEAKER) (test code = 73 mg/dL 540) CHOLESTEROL (BEAKER) (test code = 70 mg/dL 631) HDL CHOLESTEROL (BEAKER) (test code 20 mg/dL = 976) LDL CHOLESTEROL CALCULATED (BEAKER) 35 mg/dL (test code = 633) Triglyceride Reference Range: Low Risk <150 Borderline 150-199 High Risk 200-499 Very High Risk >=500Cholesterol Reference Range: Low Risk <200 Borderline 200-239 High Risk >240HDL Cholesterol Reference Range: Low Risk >=60 High Risk <40LDL Cholesterol Reference Range: Optimal <100 Near Optimal 100-129 Borderline 130-159 High 160-189 Very High >=190 Cloth Burler ID Juan Manuel POSADA MSARS-CoV2/RT-PCR (Asymptomatic ONLY)2020-07-03 01:30:00 Test Item Value Reference Range Interpretation Comments SARS-COV2/RT-PCR Negative Not Detected, (test code = Negative, See 89546-1) external report for linked test SARS-COV-2 [facility] PERFORMING LAB (test code = 93837-6) HUONG (test code = Negative results do not HUONG) preclude SARS-CoV-2 infection and should not be used as the sole basis for patient management decisions. Negative results must be combined with clinical observations, patient history, and epidemiological information. A false negative result may occur if a specimen is improperly collected, transported or handled. The limit of detection for this assay is 250 copies/mL. This SARS CoV-2 test is a rapid, real-time RT-PCR test intended for the qualitative detection of nucleic acid from SARS-CoV-2 in a nasopharyngeal swab specimen collected from individuals suspected of COVID-19 by their healthcare provider. This test has not been Food and Drug Administration (FDA) cleared or approved and has been authorized by FDA under an Emergency Use Authorization (EUA). This EUA will be effective until the declaration that circumstances exist justifying the authorization of the emergency use of in vitro diagnostic tests for detection and/or diagnosis of COVID-19 is terminated under Section 564(b)(2) of the Act or the EUA is revoked under Section 564(g) of the Act. Fact Sheet for Healthcare Providers:https://www.[employer]/Documents/Xper t%20Xpress%20SARS%20CoV- 2/Fact%20Sheets/302-3802 %88FRJW-ZMP-8%20HEALTHCA RE%20PROVIDERS%20FACT%20 SHEET.pdf Fact Sheet for Healthcare Patients:https://www.[employer]/Documents/Xpert %20Xpress%20SARS%20CoV-2 /Fact%20Sheets/302-3801% 91HLGZ-GBA-7%20PATIENT%2 0FACT%20SHEET.pdf Performing Laboratory:[facility], [place] [address] [place], [place] [address]ARS-COV2/RT-PCR ([facility])2020-07-03 01:30:00 Test Item Value Reference Range Interpretation Comments SARS-COV2/RT-PCR (test code Negative Not Detected, Negative, = 1485065) See external report for linked test SARS-COV-2 PERFORMING LAB [facility] (test code = 3143849) Negative results do not preclude SARS-CoV-2 infection and should not be used as the sole basis for patient management decisions. Negative results must be combined with clinical observations, patient history, and epidemiological information. A false negative result may occur if a specimen is improperly collected, transported or handled.The limit of detection for this assay is 250 copies/mL.This SARS CoV-2 test is a rapid, real-time RT-PCR test intended for the qualitative detection of nucleic acid from SARS-CoV-2 in a nasopharyngeal swab specimen collected from individuals suspected of COVID-19 by their healthcare provider.This test has not been Food and Drug Administration (FDA) cleared or approved and has been authorized by FDA under an Emergency Use Authorization (EUA). This EUA will be effective until the declaration that circumstances exist justifying the authorization of the emergency use of in vitro diagnostic tests for detection and/or diagnosis of COVID-19 is terminated under Section 564(b)(2) of the Act or the EUA is revoked under Section 564(g) of the Act.Fact Sheet for Healthcare Pro viders:https://www.[employer]/Documents/Xpert%20Xpress%20SARS%20CoV-2/Fact%20Sh eets/302-3802%57EMLX-WHC-7%20HEALTHCARE%20PROVIDERS%20FACT%20SHEET.pdfFact Sheet for Healthcare Patients:https://www.[employer]/Documents/Xpert%20Xpress%20SARS%20CoV-2/Fact%20Sheets/302-3801%20SARS-COV -2%20PATIENT%20FACT%20SHEET.pdfPerforming Laboratory:[facility], [place] [address]CRI, CHEST, 1 VIEW, NON [id number] 23:20:00Reason for exam:->preopShould this be performed at the bedside?->Yes[facility]Name: DARYA TADEO : 1945 Sex: MFINAL REPORT Chest one view. Clinical history: preop Comparison:None. Technique: A single frontal view of the chest was obtained. Findings: The cardiac silhouette is normal size. The aorta is tortuous and atherosclerotic. There is a calcified left lower lobe granuloma. There is no focal pulmonary consolidation, pleural effusion or pneumothorax. There is no pulmonary edema. The osseous structures are unremarkable. Impression: No focal pulmonary consolidation. Signed: [facility] Verified Date/Time: 07/02/2020 23:20:48 XR chest 1 view portable / [id number] 23:20:00 Interface, External Ris In - 07/02/2020 11:23 PM CSTFINAL REPORT Chest one view. Clinical history: preop Comparison: None. Technique: A single frontal view of the chest was obtained. Findings: The cardiac silhouette is normal size. The aorta is tortuous and atherosclerotic. There is a calcified left lower lobe granuloma. There is no focal pulmonary consolidation, pleural effusion or pneumothorax. There is no pulmonary edema. The osseous structures are unremarkable. Impression: No focal pulmonary consolidation. Signed: Aly Lopesort Verified Date/Time: 07/02/2020 23:20:48 [facility] CenterType [facility], [id number] 22:33:00 Test Item Value Reference Range Interpretation Comments ABO/RH AUTOMATED (BEAKER) (test O POSITIVE code = 2260) Ab Scrn (test code = 890-4) NEGATIVE [facility] Natriure[facility] Factor (BNP)2020-07-02 22:22:00 Test Item Value Reference Range Interpretation Comments BNP (test code = 67793-0) 799 pg/mL 0-100 H HUONG (test code = HUONG) Cloth Burler ID - DB Lab Interpretation (test Abnormal code = 26899-9) [facility] NATRIURETIC FACTOR (BNP)2020-07-02 22:22:00 Test Item Value Reference Range Interpretation Comments B-TYPE NATRIURETIC PEPTIDE (BEAKER) 799 pg/mL 0-100 H (test code = 700) Cloth Burler ID - RAMIREZ, [id number] 22:20:00 Test Item Value Reference Range Interpretation Comments ABO Grouping (test code = 2588) O Rh Factor (test code = 2589) POS [facility] CampusBASIC METABOLIC [id number] 22:15:00 Test Item Value Reference Range Interpretation Comments SODIUM (BEAKER) 145 meq/L 136-145 (test code = 381) POTASSIUM (BEAKER) 3.7 meq/L 3.5-5.1 (test code = 379) CHLORIDE (BEAKER) 109 meq/L 98-107 H (test code = 382) CO2 (BEAKER) (test 28 meq/L 22-29 code = 355) BLOOD UREA NITROGEN 12 mg/dL 7-21 (BEAKER) (test code = 354) CREATININE (BEAKER) 1.15 mg/dL 0.57-1.25 (test code = 358) GLUCOSE RANDOM 93 mg/dL 70-105 (BEAKER) (test code = 652) CALCIUM (BEAKER) 8.8 mg/dL 8.4-10.2 (test code = 697) EGFR (BEAKER) (test 62 mL/min/1.73 ESTIMA RUKHSANA GFR IS code = 1092) sq m NOT ACCURATE CREATININE CLEARANCE IN PREDICTING GLOMERULAR FILTRATION RATE . ESTIMATED GFR I S NOT APPLICABLE FOR DIALYSIS PATIEN TS. Cloth Burler ID - [id number] 22:12:00 Test Item Value Reference Range Interpretation Comments Fibrinogen (test code = 3255-7) 286 mg/dl 225-434 Lab Interpretation (test code = Normal 64365-7) [facility] CampusFIBRINOGEN2021-02-28 22:12:00 Test Item Value Reference Range Interpretation Comments FIBRINOGEN LEVEL (BEAKER) (test 286 mg/dl 225-434 code = 658) [id number] 22:12:00 Test Item Value Reference Range Interpretation Comments PARTIAL THROMBOPLASTIN TIME 32.6 seconds 22.5-36.0 (BEAKER) (test code = 760) PROTHROMBIN TIME/[id number] 22:11:00 Test Item Value Reference Range Interpretation Comments PROTIME (BEAKER) 14.8 seconds 11.9-14.2 H (test code = 759) INR (BEAKER) (test 1.20 See_Comment [Automat ed message] code = 370) The system [facility] generated this result transmitted ref erence range: <=5.90. The reference range was not used to int erpret this result as normal/abnormal . Effective 09/30/2018: PT Reference Range ChangeNew: 11.9-14.2 Previous: 11.7- 14.7RECOMMENDED COUMADIN/WARFARIN INR THERAPY RANGESSTANDARD DOSE: 2.0-3.0 Includes: PROPHYLAXIS for venous thrombosis, systemic embolization; TREATMENT for venous thrombosis and/or pulmonary embolus.HIGH RISK: Target INR is2.5-3.5 for patients wiht mechanical heart valves.CBC W/PLT COUNT & AUTO [id number] 22:03:00 Test Item Value Reference Range Interpretation Comments WHITE BLOOD CELL COUNT (BEAKER) 5.6 K/ L 3.5-10.5 (test code = 775) RED BLOOD CELL COUNT (BEAKER) 3.94 M/ L 4.63-6.08 L (test code = 761) HEMOGLOBIN (BEAKER) (test code = 11.4 GM/DL 13.7-17.5 L 410) HEMATOCRIT (BEAKER) (test code = 36.9 % 40.1-51.0 L 411) MEAN CORPUSCULAR VOLUME (BEAKER) 93.7 fL 79.0-92.2 H (test code = 753) MEAN CORPUSCULAR HEMOGLOBIN 28.9 pg 25.7-32.2 (BEAKER) (test code = 751) MEAN CORPUSCULAR HEMOGLOBIN CONC 30.9 GM/DL 32.3-36.5 L (BEAKER) (test code = 752) RED CELL DISTRIBUTION WIDTH 22.6 % 11.6-14.4 H (BEAKER) (test code = 412) PLATELET COUNT (BEAKER) (test 323 K/CU MM 150-450 code = 756) MEAN PLATELET VOLUME (BEAKER) 9.1 fL 9.4-12.4 L (test code = 754) NUCLEATED RED BLOOD CELLS 0 /100 WBC 0-0 (BEAKER) (test code = 413) NEUTROPHILS RELATIVE PERCENT 55 % (BEAKER) (test code = 429) LYMPHOCYTES RELATIVE PERCENT 28 % (BEAKER) (test code = 430) MONOCYTES RELATIVE PERCENT 8 % (BEAKER) (test code = 431) EOSINOPHILS RELATIVE PERCENT 5 % (BEAKER) (test code = 432) BASOPHILS RELATIVE PERCENT 3 % (BEAKER) (test code = 437) NEUTROPHILS ABSOLUTE COUNT 3.08 K/ L 1.78-5.38 (BEAKER) (test code = 670) LYMPHOCYTES ABSOLUTE COUNT 1.58 K/ L 1.32-3.57 (BEAKER) (test code = 414) MONOCYTES ABSOLUTE COUNT (BEAKER) 0.47 K/ L 0.30-0.82 (test code = 415) EOSINOPHILS ABSOLUTE COUNT 0.26 K/ L 0.04-0.54 (BEAKER) (test code = 416) BASOPHILS ABSOLUTE COUNT (BEAKER) 0.15 K/ L 0.01-0.08 H (test code = 417) IMMATURE GRANULOCYTES-RELATIVE 2 % 0-1 H PERCENT (BEAKER) (test code = 2801) TROPONIN [id number] 21:54:00 Test Item Value Reference Range Interpretation Comments TROPONIN I (BEAKER) (test code = 0.02 ng/mL 0.00-0.03 397) Troponin I (TnI) levels must be interpreted in the context of the presenting symptoms and the clinical findings. Elevated TnI levels indicate myocardial damage, but are not specific for ischemic heart disease. Elevated TnI levels are seen in patients with other cardiac conditions (including myocarditis and congestive heart failure), and slight TnI elevations occur in patients with other conditions, including sepsis, renal failure, acidosis, acute neurological disease, and persistent tachyarrhythmia.Cloth Burler ID - DBComprehensive metabolic [id number] 21:48:00 Test Item Value Reference Range Interpretation Comments Protein, Total (test 6.1 See_Comment [Autom ated code = 2885-2) message] The system which generated this result transmit rukhsana reference range : 6.0 - 8.3 gm/dL . The reference range was not u sed to interpret th is result as normal/abnormal . Albumin (test code = 3.5 g/dL 3.5-5 89245-3) Alkaline Phosphatase 80 U/L 40-150 (test code = 6768-6) Total Bilirubin (test 0.4 mg/dL 0.2-1.2 code = 1974-2) Sodium (test code = 144 meq/L 767-106 3845-2) Potassium (test code 3.8 meq/L 3.5-5.1 = 2823-3) Chloride (test code = 108 meq/L 98-107 H 2074-0) CO2 (test code = 28 meq/L 22-29 2027-9) BUN (test code = 12 mg/dL 7-21 3094-0) Creatinine (test code 1.18 mg/dL 0.57-1.25 = 2160-0) Glucose (test code = 98 mg/dL 70-105 2345-7) Calcium (test code = 8.3 mg/dL 8.4-10.2 L 21473-8) AST (test code = 21 U/L 5-34 1920-8) ALT (test code = 14 U/L 6-55 1742-6) EGFR (test code = 61 mL/min/1.73 [place] [address]-1) NOT ACCURATE CREATININE CLEARANCE IN PREDICTING GLOMERULAR FILTRATION RATE . ESTIMATED GFR I S NOT APPLICABLE FOR DIALYSIS PATIEN HUONG (test code = HUONG) Cloth Burler ID - DB Lab Interpretation Abnormal (test code = 49595-0) [facility] [id number] 21:48:00 Test Item Value Reference Range Interpretation Comments TOTAL PROTEIN 6.1 gm/dL 6.0-8.3 (BEAKER) (test code = 770) ALBUMIN (BEAKER) 3.5 g/dL 3.5-5.0 (test code = 1145) ALKALINE PHOSPHATASE 80 U/L 40-150 (BEAKER) (test code = 346) BILIRUBIN TOTAL 0.4 mg/dL 0.2-1.2 (BEAKER) (test code = 377) SODIUM (BEAKER) (test 144 meq/L 136-145 code = 381) POTASSIUM (BEAKER) 3.8 meq/L 3.5-5.1 (test code = 379) CHLORIDE (BEAKER) 108 meq/L 98-107 H (test code = 382) CO2 (BEAKER) (test 28 meq/L 22-29 code = 355) BLOOD UREA NITROGEN 12 mg/dL 7-21 (BEAKER) (test code = 354) CREATININE (BEAKER) 1.18 mg/dL 0.57-1.25 (test code = 358) GLUCOSE RANDOM 98 mg/dL 70-105 (BEAKER) (test code = 652) CALCIUM (BEAKER) 8.3 mg/dL 8.4-10.2 L (test code = 697) AST (SGOT) (BEAKER) 21 U/L 5-34 (test code = 353) ALT (SGPT) (BEAKER) 14 U/L 6-55 (test code = 347) EGFR (BEAKER) (test 61 mL/min/1.73 ESTIMA RUKHSANA GFR IS code = 1092) sq m NOT ACCURATE CREATININE CLEARANCE IN PREDICTING GLOMERULAR FILTRATION RATE . ESTIMATED GFR I S NOT APPLICABLE FOR DIALYSIS PATIEN TS. Cloth Burler ID - [id number] 21:48:00 Test Item Value Reference Range Interpretation Comments MAGNESIUM (BEAKER) (test code = 2.1 mg/dL 1.6-2.6 627) Cloth Burler ID - [id number] 21:48:00 Test Item Value Reference Range Interpretation Comments PHOSPHORUS (BEAKER) (test code = 2.7 mg/dL 2.3-4.7 604) Cloth Burler ID - DBCBC W/PLT COUNT & AUTO [id number] 21:32:00 Test Item Value Reference Range Interpretation Comments WHITE BLOOD CELL COUNT (BEAKER) 5.7 K/ L 3.5-10.5 (test code = 775) RED BLOOD CELL COUNT (BEAKER) 3.50 M/ L 4.63-6.08 L (test code = 761) HEMOGLOBIN (BEAKER) (test code = 10.1 GM/DL 13.7-17.5 L 410) HEMATOCRIT (BEAKER) (test code = 33.2 % 40.1-51.0 L 411) MEAN CORPUSCULAR VOLUME (BEAKER) 94.9 fL 79.0-92.2 H (test code = 753) MEAN CORPUSCULAR HEMOGLOBIN 28.9 pg 25.7-32.2 (BEAKER) (test code = 751) MEAN CORPUSCULAR HEMOGLOBIN CONC 30.4 GM/DL 32.3-36.5 L (BEAKER) (test code = 752) RED CELL DISTRIBUTION WIDTH 22.9 % 11.6-14.4 H (BEAKER) (test code = 412) PLATELET COUNT (BEAKER) (test 293 K/CU MM 150-450 code = 756) MEAN PLATELET VOLUME (BEAKER) 8.8 fL 9.4-12.4 L (test code = 754) NUCLEATED RED BLOOD CELLS 0 /100 WBC 0-0 (BEAKER) (test code = 413) NEUTROPHILS RELATIVE PERCENT 48 % (BEAKER) (test code = 429) LYMPHOCYTES RELATIVE PERCENT 34 % (BEAKER) (test code = 430) MONOCYTES RELATIVE PERCENT 9 % (BEAKER) (test code = 431) EOSINOPHILS RELATIVE PERCENT 5 % (BEAKER) (test code = 432) BASOPHILS RELATIVE PERCENT 3 % (BEAKER) (test code = 437) NEUTROPHILS ABSOLUTE COUNT 2.76 K/ L 1.78-5.38 (BEAKER) (test code = 670) LYMPHOCYTES ABSOLUTE COUNT 1.91 K/ L 1.32-3.57 (BEAKER) (test code = 414) MONOCYTES ABSOLUTE COUNT (BEAKER) 0.50 K/ L 0.30-0.82 (test code = 415) EOSINOPHILS ABSOLUTE COUNT 0.29 K/ L 0.04-0.54 (BEAKER) (test code = 416) BASOPHILS ABSOLUTE COUNT (BEAKER) 0.14 K/ L 0.01-0.08 H (test code = 417) IMMATURE GRANULOCYTES-RELATIVE 2 % 0-1 H PERCENT (BEAKER) (test code = 2801) [id number] 00:00:00Ordered by an unspecified provider.[facility]
[2020-07-24] MEDS ORDERED: HYDROCODONE/APAP 5/325 MG TAB ONE (15:31)
--- NOTE | 2020-07-24 16:22 | RAD REPORT ---
EXAM DESCRIPTION: USExtrem Venous W Compress Bil07/24/2020 4:14 pm CLINICAL HISTORY: Leg pain COMPARISON: 2012 FINDINGS: The common femoral, superficial femoral, popliteal and posterior tibial veins bilaterally are compressible and demonstrate augmentation. Doppler demonstrates good flow. IMPRESSION: No evidence of deep venous thrombosis involving either lower extremity.
--- NOTE | 2020-07-24 16:46 | ER ---
Nurse's Notes [facility] Name: Farhat Burch Sr Age: 75 yrs Sex: Male : 1945 Arrival Date: 07/24/2020 Time: 14:08 Bed 24 Private MD: Diagnosis: Pain in right lower leg;Pain in left lower leg Presentation: 07/24 14:18 Chief complaint: Patient states: Bilateral calf pain for 1 week. No swelling per ll1 patient. Sent in by [facility] to check for blood clots. Had subdural hematoma last month, was sent to [facility] in [place]. Was in ICU for 4 days. States he is taking meds as prescribed. Coronavirus screen: Client denies travel out of the [place] in the last 14 days. At this time, the client does not indicate any symptoms associated with coronavirus-19. Ebola Screen: Patient denies travel to an Ebola-affected area in the 21 days before illness onset. Initial Sepsis Screen: Does the patient meet any 2 criteria? No. Patient's initial sepsis screen is negative. Does the patient have a suspected source of infection? Yes: Other: leg pain. Risk Assessment: Do you want to hurt yourself or someone else? Patient reports no desire to harm self or others. Onset of symptoms was July 17, 2020. 14:18 Method Of Arrival: Ambulatory ll1 14:18 Acuity: JESSE 3 ll1 Historical: - Allergies: 14:22 No Known Drug Allergies; ll1 - PMHx: 14:22 Anemia; neely esophagus; Depression; COPD; Hyperlipidemia; Diabetes - IDDM; ll1 Hypertension; resolved; Anxiety; - PSHx: 14:22 Heart stents; subdural hematoma with bur hole; ll1 - Immunization history:: Flu vaccine is up to date. - Social history:: Smoking status: Patient reports the use of cigarette tobacco products, smokes one pack cigarettes per day. Screenin:11 Abuse screen: Denies threats or abuse. Nutritional screening: No deficits noted. vg1 Tuberculosis screening: No symptoms or risk factors identified. Fall Risk No fall in past 12 months (0 pts). No secondary diagnosis (0 pts). No IV (0 pts). Ambulatory Aid- None/Bed Rest/Nurse Assist (0 pts). Gait- Normal/Bed Rest/Wheelchair (0 pts) Mental Status- Oriented to own ability (0 pts). Total Wu Fall Scale indicates No Risk (0-24 pts). Assessment: 15:09 General: Appears in no apparent distress. comfortable, Behavior is calm, cooperative. vg1 Pain: Complains of pain in posterior aspect of right knee and right calf and posterior aspect of left knee and left calf Pain currently is 8 out of 10 on a pain scale. Alleviated by rest, repositioning, Aggravated by weight bearing. 15:10 Neuro: Level of Consciousness is awake, alert, obeys commands, Oriented to person, vg1 place, time, situation. Cardiovascular: Patient's skin is warm and dry. Respiratory: Airway is patent Respiratory effort is even, unlabored, Respiratory pattern is regular, symmetrical. GI: No signs and/or symptoms were reported involving the gastrointestinal system. : No signs and/or symptoms were reported regarding the genitourinary system. EENT: No signs and/or symptoms were reported regarding the EENT system. Derm: Skin is intact, Skin is pink, warm \T\ dry. Musculoskeletal: Circulation, motion, and sensation intact. 15:49 Reassessment: US at bedside. vg1 16:12 Reassessment: Patient appears in no apparent distress at this time. No changes from vg1 previously documented assessment. Patient and/or family updated on plan of care and expected duration. Pain level reassessed. Patient is alert, oriented x 3, equal unlabored respirations, skin warm/dry/pink. Vital Signs: 14:18 BP 135 / 74; Pulse 77; Resp 18; Temp 98.0; Pulse Ox 94% ; Weight 66.22 kg; Height 6 ft. ll1 0 in. (182.88 cm); Pain 8/10; 15:11 BP 138 / 75; Pulse 74; Resp 16; Pulse Ox 100% on R/A; vg1 16:00 BP 149 / 84; Pulse 83; Resp 16; Pulse Ox 98% on R/A; vg1 17:00 BP 157 / 90; Pulse 85; Resp 16; Pulse Ox 97% on R/A; vg1 14:18 Body Mass Index 19.80 (66.22 kg, 182.88 cm) ll1 ED Course: 14:08 Patient arrived in ED. ds1 14:20 Triage completed. ll1 14:22 Arm band placed on. ll1 14:51 James, Malka, RN is Primary Nurse. vg1 14:55 Baldomero Perry NP is PHCP. pm1 14:55 Derek Robin MD is Attending Physician. pm1 15:12 Patient has correct armband on for positive identification. Bed in low position. Call vg1 light in reach. Side rails up X 1. 16:14 Extrem Venous W Compression Shekhar US In Process Unspecified. EDMS 17:26 No provider procedures requiring assistance completed. Patient did not have IV access vg1 during this emergency room visit. Administered Medications: 15:15 Drug: Broughton 5 mg-325 mg 1 tabs Route: PO; vg1 16:48 Follow up: Response: No adverse reaction; Pain is decreased vg1 Outcome: 16:45 Discharge ordered by . pm1 17:26 Discharged to home ambulatory. vg1 17:26 Condition: stable 17:26 Discharge instructions given to patient, Instructed on discharge instructions, follow up and referral plans. medication usage, Demonstrated understanding of instructions, follow-up care, medications, Prescriptions given X 1. 17:27 Patient left the ED. vg1 Signatures: Dispatcher [employer] EDAL SparrowBettina wallace ds1 Baldomero Perry, [employer] pm1 Malka Ramirez RN RN vg1 Wero Brown RN RN ll1
--- NOTE | 2020-07-24 16:46 | EDPHYS ---
Physician Documentation [facility] Name: Farhat Burch Sr Age: 75 yrs Sex: Male : 1945 Arrival Date: 07/24/2020 Time: 14:08 Bed 24 Private MD: ED Physician Derek Robin HPI: 07/24 15:15 This 75 yrs old Male presents to ER via Ambulatory with complaints of Leg pm1 Pain. 15:15 The patient presents with pain. The complaints affect the bialteral calves and feet. pm1 Context: resulted from an unknown cause, the patient can fully bear weight, the patient is able to ambulate, without difficulty, Problem is a result from a previous injury: No. Onset: The symptoms/episode began/occurred 1 week(s) ago, pain comes and goes. Modifying factors: The symptoms are alleviated by nothing. the symptoms are aggravated by nothing. Associated signs and symptoms: Pertinent negatives numbness, tingling, chest pain, shortness of breath, swelling. Treatment prior to arrival includes: no previous treatment. Severity of symptoms: in the emergency department the symptoms are unchanged. [facility]. 15:15 Subdural hematoma on 07/02/2020. Stayed in the hospital for 4 days. pm1 Historical: - Allergies: 14:22 No Known Drug Allergies; ll1 - PMHx: 14:22 Anemia; neely esophagus; Depression; COPD; Hyperlipidemia; Diabetes - IDDM; ll1 Hypertension; resolved; Anxiety; - PSHx: 14:22 Heart stents; subdural hematoma with bur hole; ll1 - Immunization history:: Flu vaccine is up to date. - Social history:: Smoking status: Patient reports the use of cigarette tobacco products, smokes one pack cigarettes per day. ROS: 15:15 Constitutional: Negative for fever, chills, and weight loss, Cardiovascular: Negative pm1 for chest pain, palpitations, and edema, Respiratory: Negative for shortness of breath, cough, wheezing, and pleuritic chest pain, Abdomen/GI: Negative for abdominal pain, nausea, vomiting, diarrhea, and constipation. 15:15 Skin: Negative for injury, rash, and discoloration. 15:15 Neuro: Negative for headache, weakness, numbness, tingling, and seizure. 15:15 Back: Positive for chronic low back pain. 15:15 MS/extremity: Positive for pain, of the right calf and right mathew, left calf and left mathew, right foot, left foot, Negative for decreased range of motion, deformity. Exam: 15:15 Constitutional: This is a well developed, well nourished patient who is awake, alert, pm1 and in no acute distress. Head/Face: Normocephalic, atraumatic. Neck: Trachea midline, no thyromegaly or masses palpated, and no cervical lymphadenopathy. Supple, full range of motion without nuchal rigidity, or vertebral point tenderness. No Meningismus. 15:15 Back: No spinal tenderness. No costovertebral tenderness. Full range of motion. Skin: Warm, dry with normal turgor. Normal color with no rashes, no lesions, and no evidence of cellulitis. 15:15 Cardiovascular: Exam negative for acute changes, Rate: normal, Rhythm: regular, Pulses: no pulse deficits are appreciated. 15:15 Respiratory: Exam negative for acute changes, respiratory distress, shortness of breath. 15:15 Abdomen/GI: Exam negative for acute changes, Inspection: abdomen appears normal, Palpation: abdomen is soft and non-tender, in all quadrants. 15:15 Musculoskeletal/extremity: DVT Exam: No signs of deep vein thrombosis. no pain, no swelling, no tenderness, no appreciated bluish discoloration, no erythema, no increased warmth. 15:15 Neuro: Exam negative for acute changes, Orientation: is normal, Mentation: is normal, Motor: is normal, moves all fours, Sensation: is normal, no obvious gross deficits, Gait: is steady, at a normal pace, without difficulty. Vital Signs: 14:18 BP 135 / 74; Pulse 77; Resp 18; Temp 98.0; Pulse Ox 94% ; Weight 66.22 kg; Height 6 ft. ll1 0 in. (182.88 cm); Pain 8/10; 15:11 BP 138 / 75; Pulse 74; Resp 16; Pulse Ox 100% on R/A; vg1 16:00 BP 149 / 84; Pulse 83; Resp 16; Pulse Ox 98% on R/A; vg1 17:00 BP 157 / 90; Pulse 85; Resp 16; Pulse Ox 97% on R/A; vg1 14:18 Body Mass Index 19.80 (66.22 kg, 182.88 cm) ll1 MDM: 15:00 Patient medically screened. pm1 16:44 Data reviewed: vital signs. Data interpreted: Pulse oximetry: on room air is 98 %. pm1 Interpretation: normal. Counseling: I had a detailed discussion with the patient and/or guardian regarding: the historical points, exam findings, and any diagnostic results supporting the discharge/admit diagnosis, radiology results, the need for outpatient follow up, to return to the emergency department if symptoms worsen or persist or if there are any questions or concerns that arise at home. 17:18 ED course: Area of pain is likely due to some form of neuropathy. Likely from diabetes. pm1 Patient also with a history of chronic low back pain but this is unlikely the cause for his bilateral lower leg pain that has a stocking distribution pattern. Will discharge the patient with pain medications and for follow up with his PCP, BRIDGER. 07/24 17:06 Order name: Glucose, Ancillary Testing; Complete Time: 17:16 EDVA 07/24 15:00 Order name: Extrem Venous W Compression Shekhar US; Complete Time: 16:38 pm1 Administered Medications: 15:15 Drug: Congers 5 mg-325 mg 1 tabs Route: PO; vg1 16:48 Follow up: Response: No adverse reaction; Pain is decreased vg1 Disposition: 17:50 Co-signature as Attending Physician, eDrek Robin MD. rn Disposition: 07/24/20 16:45 Discharged to Home. Impression: Pain in right lower leg, Pain in left lower leg. - Condition is Stable. - Discharge Instructions: Peripheral Neuropathy. - Prescriptions for Tramadol 50 mg Oral Tablet - take 1 tablet by ORAL route every 12 hours As needed as needed; 12 tablet. - Medication Reconciliation Form, Thank You Letter, Antibiotic Education, Prescription Opioid Use form. - Follow up: Emergency Department; When: As needed; Reason: Worsening of condition. Follow up: Private Physician; When: 2 - 3 days; Reason: Recheck today's complaints, Continuance of care, Re-evaluation by your physician. - Problem is new. - Symptoms have improved. Signatures: Dispatcher [employer] EDVA Derek Robin MD MD rn Marinas, Patrick, HANNAH [employer] ENGINEER pm1 Malka Ramirez RN RN vg1 Wero Brown RN RN ll1 Corrections: (The following items were deleted from the chart) 17:27 16:45 07/24/2020 16:45 Discharged to Home. Impression: Pain in right lower leg; Pain in vg1 left lower leg. Condition is Stable. Forms are Medication Reconciliation Form, Thank You Letter, Antibiotic Education, Prescription Opioid Use. Follow up: Emergency Department; When: As needed; Reason: Worsening of condition. Follow up: Private Physician; When: 2 - 3 days; Reason: Recheck today's complaints, Continuance of care, Re-evaluation by your physician. Problem is new. Symptoms have improved. pm1
[2020-07-24 17:36] VITALS: TEMP 98
[2020-07-24 17:39] VITALS: BP 157/90; O2SAT 97
== END 2020-07-24 17:27 | disposition home or self-care (01) ==
LOC: ER 14:04
DX: M79.662 Pain in left lower leg (principal); M79.661 Pain in right lower leg; F17.210 Nicotine dependence, cigarettes, uncomplicated; E11.9 Type 2 diabetes mellitus without complications; E78.5 Hyperlipidemia, unspecified; J44.9 Chronic obstructive pulmonary disease, unspecified; F32.9 Major depressive disorder, single episode, unspecified; D64.9 Anemia, unspecified
CPT/HCPCS: 82947; 93970; 99283

== ENCOUNTER 2020-10-13 20:41 | Emergency (ER) | payer OTHER ==
[2020-10-13 21:06] LABS: Absolute Lymphocytes (CBC) 2.5 K/uL (0.7-4.9); Basophils % 0.8 % (0-1.3); Hematocrit 30.7 % (39.6-49.0); Lymphocytes % 39.3 % (15.3-44.8); MPV 7.1 fL (7.6-11.3); RBC Red Blood Cell Count 3.47 M/uL (4.33-5.43)
[2020-10-13] MEDS ORDERED: ONDANSETRON 4 MG/2 ML VIAL ONE (21:21)
[2020-10-13] MEDS ORDERED: FAMOTIDINE 20 MG/2 ML VIAL IV ONE (21:21)
[2020-10-13] MEDS ORDERED: NA CHLORIDE 0.9% 500 ML ONE (21:21)
[2020-10-13] MEDS ORDERED: MORPHINE 4 MG/ML SYR ONE ×2 (21:21→22:45)
[2020-10-13 21:33] LABS: Albumin 3.3 g/dL (3.4-5.0); Bilirubin Direct 0.1 mg/dL (0-0.2); Bilirubin Total 0.4 mg/dL (0.2-1.0); Protein, Total 6.8 g/dL (6.4-8.2)
[2020-10-13 21:36] LABS: Anisocytosis 2+; Blood Morphology Comment NOTED (NOT SEEN); Platelet Estimate ADEQ; Poikilocytosis 1+; White Blood Cell Scan OK (OK)
[2020-10-13 21:37] LABS: Elliptocytes 1+
[2020-10-13 22:18] LABS: Urine Blood Trace-intact (Negative); Urine Glucose Negative (Negative); Urine Protein Negative (Negative); Urine Specific Gravity >=1.030 (1.005-1.030)
[2020-10-13 22:40] LABS: Urine Bacteria 20-50 /HPF (NONE SEEN)
[2020-10-13] MEDS ORDERED: PROMETHAZINE INJ 25 MG/ML AMP ONE (22:44)
[2020-10-13] MEDS ORDERED: Nicardipine/NS 25 MG/250 ML KIT IV ONE (22:45)
[2020-10-13 22:48] LABS: Protime INR 1.13
--- NOTE | 2020-10-14 02:03 | EDPHYS ---
Physician Documentation [facility] Name: Farhat Burch Sr Age: 75 yrs Sex: Male : 1945 Arrival Date: 10/13/2020 Time: 20:47 Bed 6 Private MD: ED Physician Josue Peterson HPI: 10/13 21:00 This 75 yrs old Male presents to ER via EMS with complaints of Abdominal Pain.cp 21:00 The patient presents with abdominal pain that is diffuse. Onset: The symptoms/episode cp began/occurred this morning. Associated signs and symptoms: Pertinent positives: nausea and vomiting, headache, Pertinent negatives: blood in stools, chest pain, constipation, diarrhea, fever, vomiting blood. The symptoms are described as constant. Patient reports headache that has been persistent for past 1 week, worse right side of head and that is similar to when he was diagnosed with intracranial bleed. Historical: - Allergies: 20:51 No Known Allergies; bb - Immunization history:: Adult Immunizations up to date. - Social history:: Smoking status: Patient reports the use of cigarette tobacco products, smokes one pack cigarettes per day. ROS: 21:05 Constitutional: Positive for poor PO intake, Negative for body aches, chills, fever. cp 21:05 Eyes: Negative for injury, pain, redness, and discharge. cp 21:05 ENT: Negative for ear pain, sore throat, difficulty swallowing, difficulty handling secretions. 21:05 Cardiovascular: Negative for chest pain, edema, palpitations. 21:05 Respiratory: Negative for cough, shortness of breath, wheezing. 21:05 Abdomen/GI: Positive for abdominal pain, nausea and vomiting, Negative for diarrhea, constipation, hematemesis, black/tarry stool, rectal bleeding. 21:05 : Negative for urinary symptoms. 21:05 Neuro: Positive for headache, Negative for altered mental status, numbness, syncope, weakness. 21:05 All other systems are negative. Exam: 21:10 Constitutional: The patient appears in no acute distress, alert, awake, cp non-diaphoretic, non-toxic, well developed, well nourished, uncomfortable. 21:10 Head/Face: Normocephalic, atraumatic. cp 21:10 Eyes: Periorbital structures: appear normal, Pupils: equal, round, and reactive to light and accomodation, Extraocular movements: intact throughout, Conjunctiva: normal, no exudate, no injection, Sclera: no appreciated abnormality, Lids and lashes: appear normal, bilaterally. 21:10 ENT: External ear(s): are unremarkable, Nose: is normal, Mouth: Lips: moist, Oral mucosa: moist, Posterior pharynx: Airway: no evidence of obstruction, patent. 21:10 Neck: ROM/movement: is normal, is supple, without pain, no range of motions limitations. 21:10 Chest/axilla: Inspection: normal, Palpation: is normal, no crepitus, no tenderness. 21:10 Cardiovascular: Rate: normal, Rhythm: regular, Edema: is not appreciated, JVD: is not appreciated. 21:10 Respiratory: the patient does not display signs of respiratory distress, Respirations: normal, no use of accessory muscles, no retractions, labored breathing, is not present, Breath sounds: are clear throughout, no decreased breath sounds, no stridor, no wheezing. 21:10 Abdomen/GI: Inspection: abdomen appears normal, Bowel sounds: active, all quadrants, Palpation: soft, in all quadrants, moderate abdominal tenderness, in all quadrants, rebound tenderness, is not appreciated, voluntary guarding, is elicited in all quadrants. 21:10 Back: pain, is absent, ROM is normal. 21:10 Neuro: Orientation: to person, place \T\ time. Mentation: is normal, Cerebellar function: is grossly normal, Motor: moves all fours, strength is normal, Sensation: no obvious gross deficits. 22:50 ECG was reviewed by the Attending Physician. cp Vital Signs: 20:49 BP 187 / 95; Pulse 63; Resp 18 S; Temp 97.5(O); Pulse Ox 96% on R/A; Weight 66.22 kg bb (R); Height 6 ft. 0 in. (182.88 cm) (R); Pain 10/10; 22:35 BP 167 / 73; Pulse 60; Resp 20; Pulse Ox 99% ; Pain 10/10; cr4 22:54 BP 175 / 85; Pulse 65; Resp 20; Pulse Ox 98% on 2 lpm NC; rr5 23:10 BP 178 / 77; Pulse 69; Resp 16; Pulse Ox 99% on 3 lpm NC; rr5 23:21 BP 157 / 61; Pulse 67; Resp 19; Pulse Ox 98% on 2 lpm NC; rr5 23:36 BP 128 / 55; rr5 23:36 BP 128 / 55; rr5 10/14 00:15 BP 141 / 90; Pulse 73; Resp 19; Pulse Ox 98% 2 lpm ; rr5 01:00 BP 146 / 60; Pulse 69; Resp 17; Pulse Ox 98% 2 lpm ; rr5 01:51 BP 131 / 56; Pulse 64; Resp 17; Pulse Ox 99% 2 lpm ; rr5 02:43 BP 147 / 55; Pulse 60; Resp 18; Temp 97.8; Pulse Ox 99% ; ea 10/13 20:49 Body Mass Index 19.80 (66.22 kg, 182.88 cm) bb MDM: 10/13 20:53 Patient medically screened. cp 21:00 Differential diagnosis: acute coronary syndrome, appendicitis, bowel obstruction, cp Cholelithiasis, diverticulitis, pancreatitis, intracranial bleed, subdural bleed, migraine. 10/14 01:35 Data reviewed: vital signs, nurses notes, lab test result(s), EKG, radiologic studies, cp CT scan, I have discussed the patient's presentation/case with the attending Emergency Department Physician;. 01:35 Test interpretation: by ED physician or midlevel provider: ECG. Response to treatment: the patient's symptoms have markedly improved after treatment. 10/13 20:54 Order name: Basic Metabolic Panel 10/13 20:54 Order name: CBC with Diff 10/13 20:54 Order name: Hepatic Function; Complete Time: 22:12 10/13 20:54 Order name: Lipase; Complete Time: 22:12 10/13 20:54 Order name: Lactate; Complete Time: 22:12 10/13 20:54 Order name: Urine Microscopic Only; Complete Time: 01:34 10/13 20:55 Order name: Basic Metabolic Panel; Complete Time: 22:12 EDIL 10/13 20:55 Order name: CBC with Automated Diff; Complete Time: 22:12 EDIL 10/13 21:34 Order name: CREATININE WHOLE BLOOD; Complete Time: 22:12 EDIL 10/13 21:34 Order name: CREATININE WHOLE BLOOD; Complete Time: 22:12 EDIL 10/13 21:37 Order name: CBC Smear Scan; Complete Time: 22:12 EDIL 10/13 22:18 Order name: Urine Dipstick-Ancillary; Complete Time: 01:34 EDIL 10/13 22:19 Order name: Troponin I; Complete Time: 01:34 cp 10/13 22:19 Order name: PT-INR; Complete Time: 01:34 cp 10/13 20:57 Order name: CT Head Brain wo Cont cp 10/13 20:57 Order name: CT Abd/Pelvis - IV Contrast Only 10/13 22:19 Order name: EKG; Complete Time: 22:19 cp 10/13 22:19 Order name: Ptt, Activated; Complete Time: 01:34 cp 10/13 22:41 Order name: Urine Culture [facility] 10/13 23:55 Order name: SARS-COV-2 RT PCR; Complete Time: 01:34 EDIL 10/13 20:54 Order name: IV Saline Lock; Complete Time: 23:49 cp 10/13 20:54 Order name: Labs collected and sent; Complete Time: 23:49 cp 10/13 20:54 Order name: Urine Dipstick-Ancillary (obtain specimen); Complete Time: 22:19 cp 10/13 22:19 Order name: EKG - Nurse/Tech; Complete Time: 23:48 cp EC/11 22:50 Rate is 63 beats/min. Rhythm is regular. UT interval is normal. QRS interval is cp prolonged at 170 msec. QT interval is normal. T waves are Inverted in lead aVR. Interpreted by me. Reviewed by me. Administered Medications: 21:00 Drug: morphine 4 mg Route: IVP; Site: left antecubital; ea 22:00 Follow up: Response: No adverse reaction ea 21:00 Drug: NS 0.9% 500 ml Route: IV; Rate: 500 ml/hr; Site: left antecubital; ea 22:00 Follow up: Response: No adverse reaction; IV Status: Completed infusion; IV Intake: ea 500ml 21:15 Drug: Zofran (Ondansetron) 4 mg Route: IVP; Site: left antecubital; ea 22:00 Follow up: Response: No adverse reaction ea 21:15 Drug: Pepcid (famotidine) 20 mg Route: IVP; Site: left antecubital; ea 22:00 Follow up: Response: No adverse reaction ea 22:34 Drug: morphine 4 mg Route: IVP; Site: left antecubital; cr4 10/14 02:42 Follow up: Response: No adverse reaction 10/13 22:34 Drug: Phenergan (promethazine) 12.5 mg Route: IVP; Site: left antecubital; cr4 10/14 02:42 Follow up: Response: No adverse reaction 10/13 22:39 Not Given (Duplicate Order): morphine 4 mg IVP once; RASS on ADMIN: Combtv4, Very rr5 Agttd3, Agttd2, Rstlss1, AlertClm0, Drwsy-1, Lt Sdtn-2, Mod Sdtn-3, Dp Sdtn-4, UnArsble-5 22:39 Not Given (Duplicate Order): Phenergan (promethazine) 25 mg IVP once rr5 22:55 Drug: niCARdipine (25mg/250ml) 5 mg/hr Route: IV; Rate: calculated rate; Site: right rr5 forearm; 23:10 Follow up: BP 178 / 77; Pulse 69 bpm; Resp 16 bpm; Pulse Ox 99% 3 lpm Nasal Cannula; rr5 Rate change 5 mg/hr 23:36 Follow up: BP 128 / 55; IV Status: Order to discontinue infusion; target systolic BP rr5 140. 10/14 00:00 Follow up: Rate change 2.5 mg/hr rr5 Disposition: 06:24 Co-signature as Attending Physician, Josue Peterson MD. 7 Disposition: 10/14/20 02:02 Transfer ordered to [facility]. 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 - Reason for transfer: Higher level of care. - Accepting physician is Phuc Avendano. - Condition is Stable. - Problem is new. - Symptoms have improved. Signatures: Dispatcher [employer] EDVidya Anderson RN RN Pippa Walton RN RN cr4 Dhruv Armstrong PA PA Tiffanie Ledesma RN RN ea Roque, Raymond RN RN rr5 Josue Peterson MD MD [facility] Corrections: (The following items were deleted from the chart) 10/13 22:58 22:38 CORONAVIRUS+ ordered. EDMS EDMS 10/14 02:03 02:02 10/14/2020 02:02 Transfer ordered to [facility]. 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 Reason for transfer: Higher level of care. Accepting physician is Doctor. Condition is Stable. Problem is new. Symptoms have improved. cp 02:44 02:03 10/14/2020 02:02 Transfer ordered to [facility]. 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 Reason for transfer: Higher level of care. Accepting physician is Phuc Avendano. Condition is Stable. Problem is new. Symptoms have improved. cp
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
[2020-10-14 03:32] VITALS: O2SAT 99
[2020-10-14 03:34] VITALS: BP 147/55; TEMP 97.8
--- NOTE | 2020-10-14 19:57 | RAD REPORT ---
EXAM DESCRIPTION: CT - Head Brain Wo Cont - 10/14/2020 6:40 am ADDENDUM #1 Clinical findings were verbally discussed via telephone conference with VERONIQUE Armstrong on 10/13/2020 at 10: 1 7 PM CDT. Electronically signed by: Nick Cross MD 10/13/2020 10:17 PM CDT End of Addendum EXAM DESCRIPTION: Head Brain Wo Cont CLINICAL HISTORY: 75 years Male HEADACHE TECHNIQUE: Axial noncontrast CT head with coronal and sagittal reformats. All CT scans at this [facility] ity use dose modulation, iterative reconstruction, and/or weight based dosing when appropriate to red uce radiation dose to as low as reasonably achievable. COMPARISON: 07/02/2020. FINDINGS: Brain: Acute on chronic right frontoparietal cerebral convexity subdural hematoma measurin g 8mm in thickness. No midline shift. Chronic small vessel. Infarct in the right basal ganglia. Inter shawanda resolution of the previously seen left-sided subdural hemorrhage. No obvious large acute territor ial infarction. No midline shift. Ventricles: No hydrocephalus. Orbits: Unremarkable. Sinuses: Visualized portions are clear. Mastoid: Clear. Osseous: Right frontal bore holes at the level of the vertex.. Soft tissues: Unremarkable. IMPRESSION: 1. Acute on chronic right frontoparietal cerebral convexity subdural hematoma measurin g 8mm in thickness. 2. No midline shift, herniation or hydrocephalus. 3. Interval resolution of the previously seen left-sided subdural hemorrhage. Electronically signed by: Nick Cross MD 10/13/2020 10:10 PM CDT Due to temporary technical issues with the PACS/Fluency reporting system, reports are being signed by the in house radiologists without review as a courtesy to insure prompt reporting. The interpreting radiologist is fully responsible for the content of the report.
--- NOTE | 2020-10-14 19:59 | RAD REPORT ---
EXAM DESCRIPTION: CT - Abdomen Pelvis W Contrast - 10/14/2020 6:39 am CLINICAL HISTORY: 75 years Male ABD PAIN TECHNIQUE: CT of the abdomen and pelvis using intravenous contrast. All CT scans at this facility us e dose modulation, iterative reconstruction, and/or weight based dosing when appropriate to reduce ra diation dose to as low as reasonably achievable. COMPARISON: 02/13/2018. FINDINGS: Lower chest: Incompletely imaged small right pleural effusion. Bibasilar dependent atelect asis. Coronary artery calcifications are again noted. Abdomen/Pelvis: Liver: No focal lesion. Gallbladder: Distended without calcified stone. Pancreas: Within normal limits. Spleen: Within normal limits. Kidney: No stone or hydronephrosis. Small bilateral renal cysts. Adrenal glands: Within normal limits. Vascular structures: Atherosclerosis of the aorta and its major branches. Bowel: No significant distention. Appendix: Normal. Peritoneum: No free fluid or free air. Lymph Nodes: No lymphadenopathy. Reproductive: Prostate calcifications are present. Urinary bladder: Unremarkable. Osseous structures: Multilevel degenerative changes. Soft tissues: Unremarkable. IMPRESSION: 1. No acute intra-abdominal pelvic pathology. 2. Chronic findings as above Electronically signed by: Nick Cross MD 10/13/2020 10:21 PM CDT Due to temporary technical issues with the PACS/Fluency reporting system, reports are being signed by the in house radiologists without review as a courtesy to insure prompt reporting. The interpreting radiologist is fully responsible for the content of the report.
== END 2020-10-14 02:44 | disposition short-term general hospital (02) ==
LOC: ER 20:41
DX: I62.01 Nontraumatic acute subdural hemorrhage (principal); I11.9 Hypertensive heart disease without heart failure; R11.2 Nausea with vomiting, unspecified; R10.9 Unspecified abdominal pain; F17.210 Nicotine dependence, cigarettes, uncomplicated; Z20.822 Contact with and (suspected) exposure to COVID-19
CPT/HCPCS: 87088; 85025; 87086; 80048; 36415; 85610; 82565; 80076; 83605; 85730; 84484; 83690; 70450; 74177; U0003; Q9967; J2550; J7040; J2405; 81003; 81015; 93005; 96361; 96365; 96375; 99285

== ENCOUNTER 2020-11-11 14:01 | Emergency (ER) | payer OTHER ==
--- OUTSIDE RECORDS SUMMARY | 2020-11-11 14:08 | XMS REPORT | Continuity of Care Document ---
:1945 Author Organization [facility] t Address [address] [place] [address] Care Team Providers Name Role Phone Ale HURST I. Attending Clinician Laura HURST In Attending Clinician Supriya Carlos MD Attending Clinician Fransisco AGUILERA Attending Clinician Unavailable Jennifer Drummond MD Attending Clinician [phone] Siomara Browne MD Attending Clinician JENNIFER DRUMMOND Attending Clinician Unavail able Carline Singletary MD Attending Clinician Unavailable Anamika Swartz MD Attending Clinician Fransisco AGUILERA Admitting Clinician Unavailable JENNIFER DRUMMOND Admitting Clinician Unavail able Payers Payer Name Policy Type Policy Effective Date Expiration Date Sour ce Number INSTITUTIONALOUT OF [id number] [facility] 00:[facility]00 - Medical [id number] Ce nter resent [facility] [id number] [facility] CHOICE CARD AND 00:00:00 - Medical [id number] Ce nter -Present Problems Condition Condition Condition Status Onset Resolution Last Treating Co mments Source Name Details Category Date Date Treatment Clinician Date Acute Acute Disease Active [facility] cholecysti 6-17 Lakshmi kes - tis tis 00:00: Medical [address] 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 3-05 [facility] - mellitus mellitus 00:00: Medica l without without 00 Center complicati complicati on, on, without without long-term long-term current current use of use of insulin insulin Benign Benign Disease Active [facility] prostatic prostatic 3-05 [facility] - hyperplasi hyperplasi 00:00: Me dical a with a with 00 Center urinary urinary frequency frequency S/P brain S/P brain Disease Active [facility] surgery surgery 3- [facility] - 00:00: Medical [address] Essential Essential Disease Active [facility] hypertensi hypertensi 3- Lakshmi kes - on on 00:00: Medical [address] 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 Social History Social Habit Start Date Stop Date Quantity Comments Source History of tobacco Cigarette Smoker [facility] - use [facility] Sex Assigned At [facility] - [facility] Center Exposure to Not sure [facility] - SARS-CoV-2 (event) Medica l Center Cigarettes smoked 2020-07-03 2020-07-03 [facility] - current (pack per 00:00:00 00:00:00 Medical Center day) - Reported Cigarette 2020-07-03 2020-07-03 [facility] - pack-years 00:00:00 00:00:00 [facility] Tobacco use and 2020-07-03 2020-07-03 Never used [facility] - exposure 00:00:00 00:00:00 [facility] Smoking Status Start Date Stop Date Source Current every day smoker 2020-07-03 00:00:[address] [facility] Medications Ordered Filled Start Stop Current Ordering Indication Dosage Frequency Signature Comments Components Source Medication Medication Date Date Medication? Clinician (SIG) Name Name acetaminoph Yes 650mg Take [address] en 6-18 mg by [facility] - (TYLENOL) 14:16: mouth Medical 325 MG 10 every 6 Center tablet (six) hours as needed for Pain or Fever. albuterol Yes 2{puff} Inhale [address] HFA 6-18 puffs by [facility] - (VENTOLIN 14:16: mouth via Med ical HFA) 90 10 inhaler Center mcg/actuati every 6 on inhaler (six) hours as needed (Topical pain relief). ARIPiprazol Yes 2.5mg QD Take 2.[address] e (ABILIFY) 6-18 mg by [facility] - 5 MG tablet 14:16: mouth Medic al [address] e-lytes/car Yes 5mL [address] [facility] boxymethylc 6-18 Mucous [facility] - ellulose 14:16: Membrane Medic al (ARTIFICIAL 10 route 4 Cente r SALIVA MM) (four) times daily as needed (Dry Mouth). budesonide- Yes 2{puff} Q.5D Inhale [address] formoteroL 6-18 puffs by [facility] - (SYMBICORT) 14:16: mouth via M edical 80-4.5 10 inhaler 2 Center mcg/actuati (two) on inhaler times daily Rinse after use . busPIRone Yes 20mg Q.[id number] Take [address] (BUSPAR) 10 6-18 [id number] by mouth 3 [facility] - MG tablet 14:16: 3D (three) Medic al 10 times Center daily. cyanocobala Yes 1000ug QD Take 1,[address] min, 6-18 mcg by [facility] - vitamin 14:16: mouth Medical B-12, 1000 10 daily. Center MCG tablet docusate Yes 100mg QD Take [address] sodium 6-18 mg by [facility] - (COLACE) 14:16: mouth Medical 100 MG 10 daily. Center capsule DULoxetine Yes 120mg QD Take [address] (CYMBALTA) 6-18 mg by [facility] - 60 MG 14:16: mouth Medical capsule [address] finasteride Yes 5mg QD Take [address] (PROSCAR) 5 6-18 by mouth Luke s - mg tablet 14:16: daily. Medica l [address] fluticasone Yes 1{spray Q.5D [address] propionate 6-18 } Nasal [facility] - (FLONASE) 14:16: route 2 Medic al 50 10 (two) Center mcg/actuati times on nasal daily. spray folic acid Yes 1mg QD Take [address] (FOLVITE) 1 6-18 by mouth Luke s - MG tablet 14:16: daily. Medica l [address] multivitami Yes 1{tbl} QD Take [address] n per 6-18 tablet by [facility] - tablet 14:16: mouth Medical [address] oxybutynin Yes 5mg Q.[id number] Take [address] (DITROPAN) 6-18 [id number] by mouth 3 [facility] - 5 MG tablet 14:16: 3D (three) Med ical 10 times Center daily. sodium Yes 1{spray [address] [facility] chloride 6-18 } Nasal [facility] - 0.65% 14:16: route 2 Medical (OCEAN) 10 (two) Center 0.65 % times nasal spray daily as needed (To cleanse and moisten nasal membranes) . tamsulosin Yes .4mg QD Take 0.[address] (FLOMAX) 6-18 mg by [facility] - 0.4 mg Cap 14:16: mouth Medica l 24 hr 10 nightly. Center capsule traZODone Yes 50mg Take [address] (DESYREL) 6-18 by mouth [facility] - 50 MG 14:16: every Medical tablet 10 night as Center needed for Sleep. omeprazole 2020- No 40mg QD Take [address] (PriLOSEC) 6-18 06-18 by mouth Luke s - 20 MG 12:12: 00:00 daily. Medical capsule 52 :00 Center buPROPion 2020- No 450mg QD Take [address] (WELLBUTRIN 6-18 06-18 mg by [facility] - XL) 150 MG 09:09: 00:00 mouth Medic al 24 hr 17 :00 daily. Center tablet ferrous 2020- No 324mg Q.5D Take [address] gluconate 6-18 06-18 mg by [facility]ukes - (FERGON) 09:09: 00:00 mouth 2 Medic al 324 MG 17 :00 (two) Center tablet times daily. omeprazole Yes 40mg Q.5D Take 1 [facility] (PriLOSEC) 6-18 capsule [facility] - 40 MG 00:00: (40 mg Medical capsule 00 total) by Center mouth 2 (two) times daily. polyethylen Yes 17g QD Take [address] e glycol 6-18 by mouth [facility] - (GLYCOLAX) 00:00: daily. Medic al 17 gram 00 Center packet senna-docus Yes 1{tbl} QD Take [address] ate 6-18 tablet by [facility]ukes - (SENOKOT S) 00:00: mouth Medic al 8.6-50 mg 00 nightly. Center per tablet thiamine Yes 100mg QD Take [address] 100 MG 6-18 tablet [facility] - tablet 00:00: (100 mg Medical 00 total) by Center mouth daily. aspirin 81 2020- Yes 81mg QD Take [address] MG chewable 6-18 07-18 tablet (81 L ukes - tablet 00:00: 23:59 mg total) Medic al 00 :00 by mouth Center daily for 30 days. pancrelipas 2020- Yes [id number]{ Take [address] e, 6-18 07-18 lipase} capsules [facility] - Lip-Prot-Am 00:00: 23:59 (72,000 Me dical yl, (CREON) 00 :00 units of Cent er 24,000-76,0 lipase 00 -120,000 total) by unit CpDR mouth 3 capsule (three) times daily with meals for 30 days. traMADoL 2020- No 100mg Take [address] 100 mg Tab 6-18 06-28 mg by [facility]ukes - 00:00: 23:59 mouth Medical 00 :00 every 6 Center (six) hours as needed for up to 10 days. Max Daily Amount: 400 mg omeprazole 2020- No 40mg Q.5D Take [address] (PriLOSEC) 6-18 -18 capsule [facility] - 40 MG 00:00: 00:00 (40 mg Medical capsule 00 :00 total) by Center mouth 2 (two) times daily. senna-docus 2020- No 1{tbl} QD Take [address] ate 10-2018 tablet by [facility] - (SENOKOT S) 00:00: 00:00 mouth Medi ayanna 8.6-50 mg 00 :00 nightly. Center per tablet thiamine No 100mg QD Take 1 [facility] 100 MG -18 18 tablet [facility] - tablet 00:00: 00:00 (100 mg Medical 00 :00 total) by Center mouth daily. polyethylen 17g QD Take [address] [facility] e glycol 10-2018 by mouth [facility] - (GLYCOLAX) 00:00: 00:00 daily. Medi ayanna 17 gram 00 :00 Center packet pancrelipas 2020- No [id number]{ Take [address] e, 10-20-18 lipase} capsules [facility] - Lip-Prot-Am 00:00: 00:00 (72,000 Me dical yl, (CREON) 00 :00 units of Cent er 24,000-76,0 lipase 00 -120,000 total) by unit CpDR mouth 3 capsule (three) times daily with meals for 30 days. aspirin 81 2020- No 81mg QD Take [address] MG chewable -18 -18 tablet (81 L ukes - tablet 00:00: 00:00 mg total) Medic al 00 :00 by mouth Center daily for 30 days. traMADoL 2020- No 100mg Take [address] 100 mg Tab 6-18 -18 mg by [facility]ukes - 00:00: 00:00 mouth Medical 00 :00 every 6 Center (six) hours as needed for up to 10 days. Max Daily Amount: 400 mg aspirin 81 2020- No 81mg QD Take [address] MG chewable 3-05 03-05 by mouth Mansi es - tablet 10:01: 00:00 daily. Medical 58 :00 Center glipiZIDE No 15mg Take [address] (GLUCOTROL) 07-07 03-05 by mouth 2 L ukes - 10 MG 10:01: 00:00 (two) Medical tablet 58 :00 times Center daily before meals. lisinopriL No 2.5mg QD Take 2.[address] (PRINIVIL,Z 3-05 03-05 mg by [facility] - ESTRIL) 2.5 10:01: 00:00 mouth Medi ayanna MG tablet 58 :00 daily. Center simvastatin No 120mg QD Take [address] (ZOCOR) 80 -05 03-05 mg by [facility]ukes - MG tablet 10:01: 00:00 mouth Medica l 58 :[address] lisinopriL Yes 10mg QD Take 4 [facility] (PRINIVIL,Z 3-05 tablets [facility]ukes - ESTRIL) 2.5 00:00: (10 mg Medi ayanna MG tablet 00 total) by Cente r mouth daily. neomycin-ba 2020- No 1{packe Q.5D Apply [address] citracnZn-p 07-07 t} packet [facility] - olymyxnB 00:00: 00:00 topically Med ical (NEOSPORIN) 00 :00 2 (two) Cente r 3.5-400-5,0 times 00 daily. mg-unit-uni t OiPk packet atorvastati No 40mg QD Take [address] n (LIPITOR) 07-07 04-04 tablet (40 L ukes - 40 MG 00:00: 23:59 mg total) Medica l tablet 00 :00 by mouth Center nightly for 30 days. Vital Signs Vital Name Observation Time Observation Value Comments Source Systolic blood 2020-10-20 11:45:00 120 mm[Hg] [facility] Diastolic blood 2020-10-20 11:45:00 61 mm[Hg] [facility] Heart rate 2020-10-20 11:45:00 73 /min [facility] Respiratory rate 2020-10-20 11:45:00 18 /min [facility] Oxygen saturation in 2020-10-20 11:45:00 97 /min [facility] blood by Medical Ce nter Pulse oximetry Body temperature 2020-10-20 07:45:00 36.33 Harper [facility] Body weight 2020-10-20 06:31:00 69.945 kg [facility] BMI 2020-10-20 06:31:00 20.91 kg/m2 [facility] Body height 2020-10-14 04:00:00 182.9 cm [facility] Procedures Procedure Date / Time Performing Clinician Source Performed POCT-GLUCOSE METER 2020-10-20 07:18:00 Tanya Carlos [facility] BASIC METABOLIC PANEL (7) 2020-10-20 05:56:00 Vj Sanchez In [facility] MAGNESIUM 2020-10-20 05:56:00 Vj Sanchez In [facility] PHOSPHORUS 2020-10-20 05:56:00 Vj Sanchez In [facility] CBC W/PLT COUNT & AUTO 2020-10-20 05:56:00 Vj Sanchez In [facility] POCT-GLUCOSE METER 2020-10-19 21:05:00 Tanya Carlos Supriya [facility] POCT-GLUCOSE METER 2020-10-19 17:36:00 TajamTanya Supriya [facility] POCT-GLUCOSE METER 2020-10-19 11:51:00 NalamTanya [facility] POCT-GLUCOSE METER 2020-10-19 07:27:00 Tanya Carlos Supriya [facility] BASIC METABOLIC PANEL (7) 2020-10-19 05:49:00 Vj Sanchez In [facility] MAGNESIUM 2020-10-19 05:49:00 Vj Sanchez In [facility] PHOSPHORUS 2020-10-19 05:49:00 Vj Sanchez In [facility] HEMOGLOBIN A1C 2020-10-19 05:49:00 Tanya Carlos Supriya [facility] POCT-GLUCOSE METER 2020-10-18 21:00:00 [facility] POCT-GLUCOSE METER 2020-10-18 16:48:00 [facility] POCT-GLUCOSE METER 2020-10-18 12:08:00 Tajam [facility] POCT-GLUCOSE METER 2020-10-18 07:32:00 [facility]OLIC PANEL (7) 2020-10-18 05:56:00 Vj Sanchez In [facility] MAGNESIUM 2020-10-18 05:56:00 Vj Sanchez In [facility] PHOSPHORUS 2020-10-18 05:56:00 Vj Sanchez In [facility] HC LAB HIV-1 AG W/HIV-1&2 AB 2020-10-18 05:56:00 Vj Sanchez In [facility] CBC W/PLT COUNT & AUTO 2020-10-18 05:56:00 Vj Sanchez In [facility] POCT-GLUCOSE METER 2020-10-17 21:30:00 Vj Sanchez In [facility] POCT-GLUCOSE METER 2020-10-17 17:21:00 Vj Sanchez In [facility] POCT-GLUCOSE METER 2020-10-17 12:10:00 Vj Sanchez In [facility] CT BRAIN WITHOUT IV CONTRAST 2020-10-17 09:55:00 Vj Sanchez In [facility] POCT-GLUCOSE METER 2020-10-17 07:12:00 Vj Sanchez In [facility] CBC W/PLT COUNT & AUTO 2020-10-17 05:57:00 Vj Sanchez In [facility] BASIC METABOLIC PANEL (7) 2020-10-17 05:57:00 Vj Sanchez In [facility] MAGNESIUM 2020-10-17 05:57:00 Vj Sanchez In [facility] PHOSPHORUS 2020-10-17 05:57:00 Vj Sanchez In [facility] HEPATIC FUNCTION PANEL 2020-10-17 05:57:00 Vj Sanchez In [facility] POCT-GLUCOSE METER 2020-10-16 21:47:00 Vj Sanchez In [facility] US DRAINAGE WITH CATH 2020-10-16 18:38:00 Vj Sanchez In [facility] BODY FLUID CULTURE + GRAM 2020-10-16 18:33:00 Leif Ojeda [facility] PANCREATIC ELASTASE, FECAL 2020-10-16 16:43:00 Janette Merchant [facility] HEPATIC FUNCTION PANEL 2020-10-16 15:32:00 Edi Sky [facility] CT ABDOMEN/PELVIS WITH IV 2020-10-16 10:12:00 Vj Sanchez In [facility] POCT-GLUCOSE METER 2020-10-16 07:50:00 Vj Sanchez In [facility] CBC W/PLT COUNT & AUTO 2020-10-16 06:25:00 Vj Sanchez In [facility] BASIC METABOLIC PANEL (7) 2020-10-16 06:25:00 Vj Sanchez In [facility] MAGNESIUM 2020-10-16 06:25:00 Vj Sanchez In [facility] PHOSPHORUS 2020-10-16 06:25:00 Vj Sanchez In [facility] POCT-GLUCOSE METER 2020-10-15 21:14:00 Vj Sanchez In [facility] US ABDOMEN LIMITED 2020-10-15 19:27:00 Vj Sanchez In [facility] POCT-GLUCOSE METER 2020-10-15 16:26:00 Vj Sanchez In [facility] POCT-GLUCOSE METER 2020-10-15 12:48:00 Vj Sanchez In [facility] MRSA SCREEN 2020-10-15 11:42:00 Vj Sanchez In [facility] LIPASE 2020-10-15 11:31:00 Vj Sanchez In [facility] BLOOD GAS, VENOUS 2020-10-15 08:17:00 Vj Sanchez In [facility] SARS-COV2/RT-PCR ([facility] & REF 2020-10-15 08:08:00 Vj Sanchez In [facility] POCT-GLUCOSE METER 2020-10-15 07:40:00 Vj Sanchez In [facility] XR CHEST 1 VIEW 2020-10-15 06:30:00 Partha Orozco [facility]/BEDSIDE [facility] CBC W/PLT COUNT & AUTO 2020-10-15 05:08:00 Vernon Boone [facility] LACTIC ACID, VENOUS 2020-10-15 05:08:00 Marguerite Browne [facility] POCT-GLUCOSE METER 2020-10-15 00:23:00 Phuc Aguilera CH I [facility] URINALYSIS W/ MICROSCOPIC 2020-10-14 23:35:00 Partha Orozco [facility] BLOOD CULTURE 2020-10-14 23:21:00 Partha Orozco [facility] POCT-GLUCOSE METER 2020-10-14 16:15:00 Phuc Aguilera CH, I [facility] ECG 12-LEAD 2020-10-14 11:31:[address] [facility] ECG 12-LEAD 2020-10-14 11:31:06 Juarez [facility] HIGH SENSITIVITY TROPONIN I 2020-10-14 11:12:00 Caroline Pizarro [facility] POCT-GLUCOSE METER 2020-10-14 10:52:00 Phuc Aguilera CH I [facility] CT BRAIN WITHOUT IV CONTRAST 2020-10-14 09:22:[address] duff [facility] RAPID DRUG SCREEN, URINE 2020-10-14 08:17:[address] [facility] POCT-GLUCOSE METER 2020-10-14 06:50:00 Phuc Aguilera CH, I [facility] HIGH SENSITIVITY TROPONIN I 2020-10-14 06:05:00 Caroline Pizarro [facility] COMPREHENSIVE METABOLIC 2020-10-14 05:46:00 [facility] HEPATIC FUNCTION PANEL 2020-10-14 05:46:00 [facility] MAGNESIUM 2020-10-14 05:46:00 [facility] PHOSPHORUS 2020-10-14 05:46:00 [facility] PROTHROMBIN TIME/INR 2020-10-14 05:46:00 [facility] APTT 2020-10-14 05:46:00 [facility] FIBRINOGEN 2020-10-14 05:46:00 [facility] CBC W/PLT COUNT & AUTO 2020-10-14 05:46:[address] [facility] REPORT OF PROCEDURE - 2020-10-14 00:00:00 Sylvia Pineda [facility] ENDOSCOPY SCAN Scanning [facility] POCT-GLUCOSE METER 2020-07-07 12:10:00 Marguerite Browne [facility] POCT-GLUCOSE METER 2020-07-07 07:38:00 Marguerite Browne [facility] CBC W/PLT COUNT & AUTO 2020-07-07 05:24:00 Ye Schreiber [facility] BASIC METABOLIC PANEL (7) 2020-07-07 05:24:00 Ye Schreiber [facility] MAGNESIUM 2020-07-07 05:24:00 Abdoul [facility] PHOSPHORUS 2020-07-07 05:24:00 Abdoul [facility] VITAMIN B12 AND FOLATE 2020-07-07 05:24:00 Ana, Alli Sharp [facility] IRON, TIBC, % SAT. (WITHOUT 2020-07-07 05:24:00 Ana, Alli wilson [facility] FERRITIN) [facility] FERRITIN 2020-07-07 05:24:00 Ana, Alli Sharp [facility] VITAMIN D, 25-HYDROXY 2020-07-07 05:24:00 Ana, Alli Mayes [facility] POCT-GLUCOSE METER 2020-07-06 20:37:00 Phuc Aguilera I. CH I [facility] POCT-GLUCOSE METER 2020-07-06 11:20:00 Phuc Aguilera I. CH I [facility] CT BRAIN WITHOUT IV CONTRAST 2020-07-06 09:30:00 Seda García [facility] POCT-GLUCOSE METER 2020-07-06 06:22:00 Phuc Aguilera I. CH I [facility] CBC W/PLT COUNT & AUTO 2020-07-06 03:06:00 Abdoul [facility] BASIC METABOLIC PANEL (7) 2020-07-06 03:06:00 Ye Schreiber [facility] MAGNESIUM 2020-07-06 03:06:00 Abdoul [facility] PHOSPHORUS 2020-07-06 03:06:00 Abdoul [facility] POCT-GLUCOSE METER 2020-07-06 00:21:00 Phuc Aguilera I. CH I [facility] POCT-GLUCOSE METER 2020-07-05 17:13:00 Phuc Aguilera I. CH I [facility] POCT-GLUCOSE METER 2020-07-05 12:08:00 Phuc Aguilera CH, I [facility] TROPONIN I 2020-07-05 07:04:00 Abdoul [facility] CBC W/PLT COUNT & AUTO 2020-07-05 03:01:00 Abdoul [facility] BASIC METABOLIC PANEL (7) 2020-07-05 03:01:00 Ye Schreiber [facility] MAGNESIUM 2020-07-05 03:01:00 Abdoul [facility] PHOSPHORUS 2020-07-05 03:01:00 Abdoul [facility] POCT-GLUCOSE METER 2020-07-04 23:57:00 Phuc Aguilera [facility] POCT-GLUCOSE METER 2020-07-04 16:41:00 Phuc Aguilera [facility] POCT-GLUCOSE METER 2020-07-04 11:32:00 Phuc Aguilera I. CH I [facility] HEMOGLOBIN AND HEMATOCRIT 2020-07-04 11:26:[address] [facility] BASIC METABOLIC PANEL (7) 2020-07-04 11:26:00 Mir Jenkins [facility] POCT-GLUCOSE METER 2020-07-04 07:46:00 Phuc Aguilera [facility] 2D ECHO W/ DOPPLER 2020-07-04 04:38:50 Nahum García [facility] (CW/PW/COLOR) [facility] CBC W/PLT COUNT & AUTO 2020-07-04 03:11:00 Ye Schreiber [facility] BASIC METABOLIC PANEL (7) 2020-07-04 03:11:00 Ye Schreiber [facility] PHOSPHORUS 2020-07-04 03:11:00 Abdoul [facility] MAGNESIUM 2020-07-04 03:11:00 Abdoul [facility] PROTHROMBIN TIME/INR 2020-07-04 03:11:[address] [facility] APTT 2020-07-04 03:11:00 Freddie Juaresalbina [facility] CREATINE KINASE (CK) 2020-07-04 03:11:[address] [facility] PREPARE LEUKO-REDUCED 2020-07-03 23:54:00 Vernell Martini [facility] HEMOGLOBIN AND HEMATOCRIT 2020-07-03 21:43:[address] [facility] POCT-GLUCOSE METER 2020-07-03 21:31:00 Phuc Aguilera [facility] POCT-GLUCOSE METER 2020-07-03 16:38:00 Phuc Aguilera I. CH I [facility] THROMBOELASTOGRAPH (TEG) 2020-07-03 12:16:00 Nahum García [facility] BUR HOLE,EVACUATION HEMATOMA 2020-07-03 09:36:00 Mal Singletary [facility] CT BRAIN WITHOUT IV CONTRAST 2020-07-03 08:14:00 Mir Jenkins [facility] CBC W/PLT COUNT & AUTO 2020-07-03 04:36:00 Marcus Ackerman [facility] DIFFERENTIAL [facility] BASIC METABOLIC PANEL (7) 2020-07-03 04:35:00 Venkatasubluis Ackerman, [facility] MAGNESIUM 2020-07-03 04:35:00 Venkatasubba Tyron, [facility] PHOSPHORUS 2020-07-03 04:35:00 Rikkikatasdavidba Tyron, [facility] LIPASE 2020-07-03 03:37:00 Lisandra Belcher [facility] BASIC METABOLIC PANEL (7) 2020-07-03 03:37:00 Ye Schreiber [facility] MAGNESIUM 2020-07-03 03:37:[address] [facility] HEMOGLOBIN A1C 2020-07-03 03:37:00 [facility] TSH/FREE T4 IF INDICATED 2020-07-03 03:37:00 [facility] LIPID PANEL 2020-07-03 03:37:00 [facility] TRANSFUSE LEUKO-REDUCED 2020-07-03 01:36:45 [facility] PLATELETS [facility] XR CHEST 1 VIEW 2020-07-02 22:17:00 [facility] PORTABLE/BEDSIDE Medical [address] ABORH, MANUAL 2020-07-02 22:07:00 Mehnaz Regalado [facility] SARS-COV2/RT-PCR ([facility] & REF 2020-07-02 22:03:00 [facility] LABS) Medical Center BASIC METABOLIC PANEL (7) 2020-07-02 21:48:00 Psychiatric B-TYPE NATRIURETIC FACTOR 2020-07-02 21:48:00 [facility] (BNP) Medical Center TYPE AND SCREEN, AUTOMATED 2020-07-02 21:48:00 [facility] CBC W/PLT COUNT & AUTO 2020-07-02 21:48:00 [facility] DIFFERENTIAL [facility] PROTHROMBIN TIME/INR 2020-07-02 21:12:00 [facility] APTT 2020-07-02 21:12:00 [facility] FIBRINOGEN 2020-07-02 21:12:00 [facility] COMPREHENSIVE METABOLIC 2020-07-02 21:12:00 Lisandra Belcher [facility] MAGNESIUM 2020-07-02 21:12:00 Nixon Belcherutha [facility] PHOSPHORUS 2020-07-02 21:12:00 Lisandra Belcher [facility] TROPONIN I 2020-07-02 21:12:00 Lisandra Belcher [facility] CBC W/PLT COUNT & AUTO 2020-07-02 21:12:00 Lisandra Belcher [facility] I [facility] DIFFERENTIAL [facility] REPORT OF PROCEDURE - 2020-07-02 00:00:00 Provider, Sylvia [facility] - ENDOSCOPY SCAN Scanning [facility] Plan of Care Planned Activity Planned Date Details Comments Source Future Scheduled 2021-04-20 Hemoglobin A1c [facility] Test 00:00:00 measurement [facility] (procedure) [code = 13348630] Future Scheduled 2021-01-03 INFLUENZA VACCINE (#1) [facility] 00:[facility]:00 [code = INFLUENZA Medical Ce nter VACCINE (#1)] Future Scheduled 2020-05-[address] [facility] - Test 00:00:00 (12+) [code = [facility] DEPRESSION SCREENING (12+)] Future Scheduled 2012-01-31 PNEUMOCOCCAL 65+ YRS [facility] - Test 00:00:00 (1 of 1 - Medical Center [id number] PCV13) [code = PNEUMOCOCCAL 65+ YRS (1 of 1 - [id number] PCV13)] Future Scheduled 1997 SHINGLES VACCINES (1 [...] HEPATITIS C [facility] SCREENING] Future Scheduled 1959 COVID-19 VACCINE (1) [facility] - Test 00:00:00 [code = COVID-[address] VACCINE (1)] Future Scheduled [address] DIABETIC EYE EXAM [facility] - Test 00:00:00 [code = DIABETIC EYE [facility] EXAM] Future Scheduled [address] [facility] 00:[facility]:00 examination [facility] (regime/therapy) [code = 882911185] Future Scheduled 1957 Urine screening for [facility] - Test 00:00:00 protein (procedure) [facility] [code = 895082404] Future Scheduled [address] [facility] - Test 00:00:00 malignant neoplasm of Medica l Center colon (procedure) [code = 023288763] Results Test Description Test Time Test Comments Results Result Sourc e Comments ECG 12 lead 2020-10-22 Interface, External [facility] 17:50:11 Ris In - 10/22/2020 - Med ical 5:50 PM Center CDTVentricular Rate 80 BPMAtrial Rate 80 BPMP-R Interval 174 msQRS Duration 146 msQ-T Interval 404 msQTC Calculation(Bazett) 465 msP [place] 53 degreesR [place] -52 degreesT [place] 103 degreesNormal sinus rhythmLeft axis deviationLeft bundle branch blockAbnormal ECGWhen compared with ECG of 14-OCT-2020 11:31,No significant change was foundConfirmed by MD ERNESTINA, HUMBERTO Leon ([id number]) on 10/22/2020 5:50:05 PM Pancreatic elastase, fecal 2020-10-21 22:18:00 Test Item Value Reference Range Interpretation Comme nts Pancreatic Elastase 213 mcg/g Adult a nd Pediatric Reference (test code = 35862-6) Ranges for Pancreatic Elastase-1: Normal: >2 00 mcg/gModerate P ancreatic Insufficiency: 100-200 mcg/g Severe Pancrea tic Insufficiency: <100 mcg/g Elastase-1 (E-1 ) assay results are expressedin mcg/g, which represent mcg E 1/g feces. It is not necessar y to interrupt enzymesubstitut ion therapy. HUONG (test code = HUONG) Performing Lab EZ [facility] [address] [place] [address] Negra Nugent MD, PhD, ANTONINO [facility] [id number] 07:49:00 Test Item Value Reference Range Interpretation Comments POC-Glucose Meter (test 90 mg/dL 70-110 : TE STED AT [facility] code = 1538) [address] [place], [address]: Advice Nurse/Techni michael ID = [id number] for SHAHRIAR NAZARIO Lab Interpretation (test Normal code = 55556-2) [facility] [id number] 07:49:00 Test Item Value Reference Range Interpretation Comments POC-GLUCOSE METER 90 mg/dL 70-110 : TESTED A T [facility] 6720 (BEAKER) (test code = SHER Estevez [facility], 1538) [address]: Advice Nurse/Techni michael ID = [id number] for SHAHRIAR SCHWARZ [id number] 07:11:00 Test Item Value Reference Range Interpretation Comments Phosphorus (test code 3.8 mg/dL 2.3-4.7 Specim en = 2777-1) slightly hemolyzed HUONG (test code = HUONG) Advice Nurse ID - DB Lab Interpretation Normal (test code = 45591-4) [facility] Met[facility] [id number] 07:11:00 Test Item Value Reference Range Interpretation Comments Sodium (test code = 138 meq/L 048-009 3379-2) Potassium (test 4.4 meq/L 3.5-5.1 Specimen sli ghtly code = 2823-3) hemolyzed Chloride (test code 105 meq/L 98-107 = 2075-0) CO2 (test code = 27 meq/L 22-29 8-9) BUN (test code = 14 mg/dL 7-21 3094-0) Creatinine (test 1.23 mg/dL 0.57-1.25 Specimen sl ightly code = 2160-0) hemolyzed Glucose (test code 101 mg/dL 70-105 = 2345-7) Calcium (test code 8.4 mg/dL 8.4-10.2 = 88082-0) EGFR (test code = 58 mL/min/1.73 [place] [address]-3) NOT ACCURATE CREATININE CLEARANCE IN PREDICTING GLOMERULAR FILTRATION RATE . ESTIMATED GFR I S NOT APPLICABLE FOR DIALYSIS PATIEN TS. HUONG (test code = Advice Nurse ID - DB HUONG) [facility]2021-06-18 07:11:00 Test Item Value Reference Range Interpretation Comments Magnesium (test code = 2.2 mg/dL 1.6-2.6 Speci men 43725-6) slightly hemolyzed HUONG (test code = HUONG) Advice Nurse ID - DB Lab Interpretation Normal (test code = 48626-4) [facility] 07:11:00 Test Item Value Reference Range Interpretation Comments MAGNESIUM (BEAKER) 2.2 mg/dL 1.6-2.6 Specimen slightly (test code = 627) hemolyzed Advice Nurse ID - [id number] 07:11:00 Test Item Value Reference Range Interpretation Comments PHOSPHORUS (BEAKER) 3.8 mg/dL 2.3-4.7 Specimen slightly (test code = 604) hemolyzed Advice Nurse ID - DBBASIC METABOLIC [id number] 07:11:00 Test Item Value Reference Range Interpretation Comments SODIUM (BEAKER) 138 meq/L 136-145 (test code = 381) POTASSIUM (BEAKER) 4.4 meq/L 3.5-5.1 Specimen slightly (test code = 379) hemolyzed CHLORIDE (BEAKER) 105 meq/L 98-107 (test code = 382) CO2 (BEAKER) (test 27 meq/L 22-29 code = 355) BLOOD UREA NITROGEN 14 mg/dL 7-21 (BEAKER) (test code = 354) CREATININE (BEAKER) 1.23 mg/dL 0.57-1.25 Specimen slightly (test code = 358) hemolyzed GLUCOSE RANDOM 101 mg/dL 70-105 (BEAKER) (test code = 652) CALCIUM (BEAKER) 8.4 mg/dL 8.4-10.2 (test code = 697) EGFR (BEAKER) (test 58 mL/min/1.73 ESTIMA RUKHSANA GFR IS code = 1092) sq m NOT ACCURATE CREATININE CLEARANCE IN PREDICTING GLOMERULAR FILTRATION RATE . ESTIMATED GFR I S NOT APPLICABLE FOR DIALYSIS PATIEN TS. Advice Nurse ID - DBCBC with platelet count + automated [id number] 06:59:00 Test Item Value Reference Range Interpretation Comments WBC (test code = 6690-2) 6.0 See_Comment [A utomated message] The system [employer] generated this result transmitted ref erence range: 3.5 - 10 .5 K/L. The refe rence range was not u sed to interpret this result as normal/abnor mal. RBC (test code = 789-8) 3.01 See_Comment L [Au tomated message] The system [employer] generated this result transmitted ref erence range: 4.63 - 6 .08 M/L. The refe rence range was not u sed to interpret this result as normal/abnor mal. MCHC (test code = 786-4) 30.3 See_Comment L [A utomated message] The system [employer] generated this result transmitted ref erence range: 32.3 - 3 6.5 GM/DL. The refe rence range was not u sed to interpret this result as normal/abnor mal. Hematocrit (test code = 28.7 % 40.1-51 L 4544-3) MCV (test code = 787-2) 95.3 fL 79-92.2 H MCH (test code = 785-6) 28.9 pg 25.7-32.2 RDW (test code = 788-0) 24.5 % 11.6-14.4 H Platelets (test code = 406 See_Comment [Aut omated message] 777-3) The system [employer] generated this result transmitted ref erence range: 150 - 45 0 K/CU MM. The referen ce range was not u sed to interpret this result as normal/abnor mal. MPV (test code = 9.3 fL 9.4-12.4 L 27476-1) nRBC (test code = 413) 0 See_Comment [Aut omated message] The system [employer] generated this result transmitted ref erence range: 0 - 0 /1 00 WBC. The refere nce range was not u sed to interpret this result as normal/abnor mal. % Neutros (test code = 55 % 429) % Lymphs (test code = 23 % 430) % Monos (test code = 9 % 431) % Eos (test code = 432) 7 % % Baso (test code = 437) 1 % # Neutros (test code = 3.25 See_Comment [Aut omated message] 670) The system [employer] generated this result transmitted ref erence range: 1.78 - 5 .38 K/L. The refe rence range was not u sed to interpret this result as normal/abnor mal. # Lymphs (test code = 1.39 See_Comment [Auto mated message] 414) The system [employer] generated this result transmitted ref erence range: 1.32 - 3 .57 K/L. The refe rence range was not u sed to interpret this result as normal/abnor mal. # Monos (test code = 0.54 See_Comment [Autom ated message] 415) The system [employer] generated this result transmitted ref erence range: 0.30 - 0 .82 K/L. The refe rence range was not u sed to interpret this result as normal/abnor mal. # Eos (test code = 416) 0.42 See_Comment [Au tomated message] The system [employer] generated this result transmitted ref erence range: 0.04 - 0 .54 K/L. The refe rence range was not u sed to interpret this result as normal/abnor mal. # Baso (test code = 417) 0.08 See_Comment [A utomated message] The system [employer] generated this result transmitted ref erence range: 0.01 - 0 .08 K/L. The refe rence range was not u sed to interpret this result as normal/abnor mal. Immature 5 % 0-1 H Granulocytes-Relative (test code = 2801) Lab Interpretation (test Abnormal code = 89150-4) [facility] W/PLT COUNT & AUTO [id number] 06:59:00 Test Item Value Reference Range Interpretation Comments WHITE BLOOD CELL COUNT (BEAKER) 6.0 K/ L 3.5-10.5 (test code = 775) RED BLOOD CELL COUNT (BEAKER) 3.01 M/ L 4.63-6.08 L (test code = 761) HEMOGLOBIN (BEAKER) (test code = 8.7 GM/DL 13.7-17.5 L 410) HEMATOCRIT (BEAKER) (test code = 28.7 % 40.1-51.0 L 411) MEAN CORPUSCULAR VOLUME (BEAKER) 95.3 fL 79.0-92.2 H (test code = 753) MEAN CORPUSCULAR HEMOGLOBIN 28.9 pg 25.7-32.2 (BEAKER) (test code = 751) MEAN CORPUSCULAR HEMOGLOBIN CONC 30.3 GM/DL 32.3-36.5 L (BEAKER) (test code = 752) RED CELL DISTRIBUTION WIDTH 24.5 % 11.6-14.4 H (BEAKER) (test code = 412) PLATELET COUNT (BEAKER) (test 406 K/CU MM 150-450 code = 756) MEAN PLATELET VOLUME (BEAKER) 9.3 fL 9.4-12.4 L (test code = 754) NUCLEATED RED BLOOD CELLS 0 /100 WBC 0-0 (BEAKER) (test code = 413) NEUTROPHILS RELATIVE PERCENT 55 % (BEAKER) (test code = 429) LYMPHOCYTES RELATIVE PERCENT 23 % (BEAKER) (test code = 430) MONOCYTES RELATIVE PERCENT 9 % (BEAKER) (test code = 431) EOSINOPHILS RELATIVE PERCENT 7 % (BEAKER) (test code = 432) BASOPHILS RELATIVE PERCENT 1 % (BEAKER) (test code = 437) NEUTROPHILS ABSOLUTE COUNT 3.25 K/ L 1.78-5.38 (BEAKER) (test code = 670) LYMPHOCYTES ABSOLUTE COUNT 1.39 K/ L 1.32-3.57 (BEAKER) (test code = 414) MONOCYTES ABSOLUTE COUNT (BEAKER) 0.54 K/ L 0.30-0.82 (test code = 415) EOSINOPHILS ABSOLUTE COUNT 0.42 K/ L 0.04-0.54 (BEAKER) (test code = 416) BASOPHILS ABSOLUTE COUNT (BEAKER) 0.08 K/ L 0.01-0.08 (test code = 417) IMMATURE GRANULOCYTES-RELATIVE 5 % 0-1 H PERCENT (BEAKER) (test code = 2801) Blood [id number] 04:00:00 Test Item Value Reference Range Interpretation Comments Result (test code = No growth in 5 days 6463-4) [facility] [id number] 04:00:00 Test Item Value Reference Range Interpretation Comments CULTURE (BEAKER) (test No growth in 5 days code = 1095) BLOOD [id number] 04:00:00 Test Item Value Reference Range Interpretation Comments CULTURE (BEAKER) (test No growth in 5 days code = 1095) POCT-GLUCOSE [id number] 21:20:00 Test Item Value Reference Range Interpretation Comments POC-GLUCOSE METER 171 mg/dL 70-110 H : Notified RN/MD: ([facility]) (test code = TESTED AT [facility] 6720 1538) DENISE [facility], [address]: Advice Nurse/Techni michael ID = [id number] for ANNAMARIE MARLOW POCT-GLUCOSE [id number] 17:48:00 Test Item Value Reference Range Interpretation Comments POC-GLUCOSE METER 149 mg/dL 70-110 H : TESTED A T [facility] 6720 ([facility]) (test code = SHER Estevez [facility], 1538) [address]: Advice Nurse/Techni michael ID = [id number] for SHAHRIAR HANDLEY BODY FLUID CULTURE + GRAM [id number] 13:13:00 Test Item Value Reference Range Interpretation Comments CULTURE ([facility]) (test KLEBSIELLA A 2+ Kl ebsiella code = 1095) PNEUMONIAE pneumoniae Amikacin (test code = S 1) Ampicillin + Sulbactam S (test code = 6) Aztreonam (test code = S 32) Cefepime (test code = S 51) Cefoxitin (test code = S 68) Ceftazidime (test code S = 27) Ceftriaxone (test code S = 52) Ertapenem (test code = S 38) Gentamicin (test code S = 18) Levofloxacin (test S code = 22) Meropenem (test code = S 34) Nitrofurantoin (test S code = 23) Piperacillin + S Tazobactam (test code = 29) Tetracycline (test S code = 2) Tobramycin (test code S = 25) Trimethoprim + S Sulfamethoxazole (test code = 47) CULTURE ([facility]) (test ESCHERICHIA COLI A 2 + Escherichia code = 1095) coli Amikacin (test code = S 1) Ampicillin + Sulbactam S (test code = 6) Aztreonam (test code = S 32) Cefepime (test code = S 51) Cefoxitin (test code = S 68) Ceftazidime (test code S = 27) Ceftriaxone (test code S = 52) Ertapenem (test code = S 38) Gentamicin (test code S = 18) Levofloxacin (test S code = 22) Meropenem (test code = S 34) Nitrofurantoin (test S code = 23) Piperacillin + S Tazobactam (test code = 29) Tetracycline (test S code = 2) Tobramycin (test code S = 25) Trimethoprim + S Sulfamethoxazole (test code = 47) GRAM STAIN RESULT <1+ WBCs (BEAKER) (test code = 1123) GRAM STAIN RESULT No organisms seen (BEAKER) (test code = 629867) POCT-GLUCOSE [id number] 12:08:00 Test Item Value Reference Range Interpretation Comments POC-GLUCOSE METER 191 mg/dL 70-110 H : TESTED A T [facility] 6720 (BEAKER) (test code = [facility], 1538) [address]: Advice Nurse/Techni michael ID = [id number] for SHAHRIAR HANDLEY Hemoglobin [id number] 08:36:00 Test Item Value Reference Range Interpretation Comments Hemoglobin A1C (test code = 4548-4) 6.4 % 4.3-6.1 H Lab Interpretation (test code = Abnormal 88141-5) [facility] [id number] 08:36:00 Test Item Value Reference Range Interpretation Comments HEMOGLOBIN A1C (BEAKER) (test code = 6.4 % 4.3-6.1 H 368) MRSA [id number] 08:18:00 Test Item Value Reference Range Interpretation Comments Result (test code = 6463-4) No MRSA isolated [facility] [id number] 08:18:00 Test Item Value Reference Range Interpretation Comments POC-GLUCOSE METER 151 mg/dL 70-110 H : TESTED A T [facility] 6720 (BEAKER) (test code = [facility], 1538) [address]: Advice Nurse/Techni michael ID = [id number] for SHAHRIAR HANDLEY MRSA [id number] 08:18:00 Test Item Value Reference Range Interpretation Comments CULTURE (BEAKER) (test code No MRSA isolated = 1095) BASIC METABOLIC [id number] 06:41:00 Test Item Value Reference Range Interpretation Comments SODIUM (BEAKER) 140 meq/L 136-145 (test code = 381) POTASSIUM (BEAKER) 3.9 meq/L 3.5-5.1 (test code = 379) CHLORIDE (BEAKER) 106 meq/L 98-107 (test code = 382) CO2 (BEAKER) (test 26 meq/L 22-29 code = 355) BLOOD UREA NITROGEN 18 mg/dL 7-21 (BEAKER) (test code = 354) CREATININE (BEAKER) 1.14 mg/dL 0.57-1.25 (test code = 358) GLUCOSE RANDOM 134 mg/dL 70-105 H (BEAKER) (test code = 652) CALCIUM (BEAKER) 8.3 mg/dL 8.4-10.2 L (test code = 697) EGFR (BEAKER) (test 63 mL/min/1.73 ESTIMA RUKHSANA GFR IS code = 1092) sq m NOT ACCURATE CREATININE CLEARANCE IN PREDICTING GLOMERULAR FILTRATION RATE . ESTIMATED GFR I S NOT APPLICABLE FOR DIALYSIS PATIEN TS. Advice Nurse ID - ALBINO [id number] 06:41:00 Test Item Value Reference Range Interpretation Comments MAGNESIUM (BEAKER) (test code = 2.1 mg/dL 1.6-2.6 627) Advice Nurse ID - ALBINO [id number] 06:41:00 Test Item Value Reference Range Interpretation Comments PHOSPHORUS (BEAKER) (test code = 3.2 mg/dL 2.3-4.7 604) Advice Nurse ID - ALBINO MPOCT-GLUCOSE [id number] 21:12:00 Test Item Value Reference Range Interpretation Comments POC-GLUCOSE METER 135 mg/dL 70-110 H : TESTED A T [facility] 6720 (BEAKER) (test code = [facility], 153) [address]: Advice Nurse/Techni michael ID = [id number] for TRACY NINA WATKINSA POCT-GLUCOSE [id number] 17:00:00 Test Item Value Reference Range Interpretation Comments POC-GLUCOSE METER 140 mg/dL 70-110 H : TESTED A T [facility] 6720 (BEAKER) (test code = [place] [facility], 1538) [address]: Advice Nurse/Techni michael ID = [id number] for Ca vitt, Eminae POCT-GLUCOSE [id number] 12:23:00 Test Item Value Reference Range Interpretation Comments POC-GLUCOSE METER 189 mg/dL 70-110 H : TESTED A T [facility] 6720 (BEAKER) (test code = [facility], 1538) [address]: Advice Nurse/Techni michael ID = [id number] for Ca vitt, Eminae POCT-GLUCOSE [id number] 07:46:00 Test Item Value Reference Range Interpretation Comments POC-GLUCOSE METER 107 mg/dL 70-110 : TESTED A T [facility] 6720 (BEAKER) (test code = SHER Estevez [facility], 1538) [address]: Advice Nurse/Techni michael ID = [id number] for Ca vitt, Eminae HIV-1 Antigen with HIV-1/2 [id number] 06:57:00 Test Item Value Reference Range Interpretation Comments HIV-1 Antigen with HIV 1&2 Nonreactive Nonreactive Antibody (test code = 91551-3) HUONG (test code = HUONG) Advice Nurse ID - BS Lab Interpretation (test Normal code = 91723-0) [facility] ANTIGEN WITH HIV-1/2 [id number] 06:57:00 Test Item Value Reference Range Interpretation Comments HIV-1 ANTIGEN WITH HIV 1\T\2 Nonreactive Nonreactive ANTIBODY (2) (BEAKER) (test code = 2586) Advice Nurse ID - BSBASIC METABOLIC [id number] 06:46:00 Test Item Value Reference Range Interpretation Comments SODIUM (BEAKER) 136 meq/L 136-145 (test code = 381) POTASSIUM (BEAKER) 3.9 meq/L 3.5-5.1 (test code = 379) CHLORIDE (BEAKER) 104 meq/L 98-107 (test code = 382) CO2 (BEAKER) (test 26 meq/L 22-29 code = 355) BLOOD UREA NITROGEN 25 mg/dL 7-21 H (BEAKER) (test code = 354) CREATININE (BEAKER) 1.21 mg/dL 0.57-1.25 (test code = 358) GLUCOSE RANDOM 99 mg/dL 70-105 (BEAKER) (test code = 652) CALCIUM (BEAKER) 8.6 mg/dL 8.4-10.2 (test code = 697) EGFR (BEAKER) (test 59 mL/min/1.73 ESTIMA RUKHSANA GFR IS code = 1092) sq m NOT ACCURATE CREATININE CLEARANCE IN PREDICTING GLOMERULAR FILTRATION RATE . ESTIMATED GFR I S NOT APPLICABLE FOR DIALYSIS PATIEN TS. Advice Nurse ID - [id number] 06:46:00 Test Item Value Reference Range Interpretation Comments MAGNESIUM (BEAKER) (test code = 2.1 mg/dL 1.6-2.6 627) Advice Nurse ID - [id number] 06:46:00 Test Item Value Reference Range Interpretation Comments PHOSPHORUS (BEAKER) (test code = 2.6 mg/dL 2.3-4.7 604) Advice Nurse ID - BSCBC W/PLT COUNT & AUTO [id number] 06:42:00 Test Item Value Reference Range Interpretation Comments WHITE BLOOD CELL COUNT (BEAKER) 8.6 K/ L 3.5-10.5 (test code = 775) RED BLOOD CELL COUNT (BEAKER) 3.08 M/ L 4.63-6.08 L (test code = 761) HEMOGLOBIN (BEAKER) (test code = 8.9 GM/DL 13.7-17.5 L 410) HEMATOCRIT (BEAKER) (test code = 29.2 % 40.1-51.0 L 411) MEAN CORPUSCULAR VOLUME (BEAKER) 94.8 fL 79.0-92.2 H (test code = 753) MEAN CORPUSCULAR HEMOGLOBIN 28.9 pg 25.7-32.2 (BEAKER) (test code = 751) MEAN CORPUSCULAR HEMOGLOBIN CONC 30.5 GM/DL 32.3-36.5 L (BEAKER) (test code = 752) RED CELL DISTRIBUTION WIDTH 23.9 % 11.6-14.4 H (BEAKER) (test code = 412) PLATELET COUNT (BEAKER) (test 302 K/CU MM 150-450 code = 756) MEAN PLATELET VOLUME (BEAKER) 9.7 fL 9.4-12.4 (test code = 754) NUCLEATED RED BLOOD CELLS 0 /100 WBC 0-0 (BEAKER) (test code = 413) NEUTROPHILS RELATIVE PERCENT 82 % (BEAKER) (test code = 429) LYMPHOCYTES RELATIVE PERCENT 7 % (BEAKER) (test code = 430) MONOCYTES RELATIVE PERCENT 5 % (BEAKER) (test code = 431) EOSINOPHILS RELATIVE PERCENT 3 % (BEAKER) (test code = 432) BASOPHILS RELATIVE PERCENT 1 % (BEAKER) (test code = 437) NEUTROPHILS ABSOLUTE COUNT 7.03 K/ L 1.78-5.38 H (BEAKER) (test code = 670) LYMPHOCYTES ABSOLUTE COUNT 0.62 K/ L 1.32-3.57 L (BEAKER) (test code = 414) MONOCYTES ABSOLUTE COUNT (BEAKER) 0.44 K/ L 0.30-0.82 (test code = 415) EOSINOPHILS ABSOLUTE COUNT 0.26 K/ L 0.04-0.54 (BEAKER) (test code = 416) BASOPHILS ABSOLUTE COUNT (BEAKER) 0.07 K/ L 0.01-0.08 (test code = 417) IMMATURE GRANULOCYTES-RELATIVE 2 % 0-1 H PERCENT (BEAKER) (test code = 2801) POCT-GLUCOSE [id number] 21:42:00 Test Item Value Reference Range Interpretation Comments POC-GLUCOSE METER 118 mg/dL 70-110 H : TESTED A T [facility] 6720 (BEAKER) (test code = [facility], 153) [address]: Advice Nurse/Techni michael ID = [id number] for Cr oss, Claysie POCT-GLUCOSE [id number] 17:32:00 Test Item Value Reference Range Interpretation Comments POC-GLUCOSE METER 111 mg/dL 70-110 H : [facility] 6720 [facility] (test code = [facility], 153) [address]: Advice Nurse/Techni michael ID = [id number] for An derson, Mary POCT-GLUCOSE [id number] 12:21:00 Test Item Value Reference Range Interpretation Comments POC-GLUCOSE METER 140 mg/dL 70-110 H : [facility] T [facility] 6720 [facility] (test code = [facility], 153) [address]: Advice Nurse/Techni michael ID = [id number] for An derson, Mary CT, BRAIN, WITHOUT [id number] 10:01:00Unlisted Reason for Exam - Click Yes and Enter Reason Below->YesUnlisted Reason for Exam->f/u [facility] : 1945 Sex: MFINAL REPORT CT Head without contrast CLINICAL HISTORY: Unlisted R kun for Examf/u SDH TECHNIQUE: Contiguous axial CT images through the head without contrast. This exam was performed according to the departmental dose optimization program which includes automated exposure control, adjustment of the mA and/or kV according to the patient size, and/or use of an iterative reconstruction technique. COMPARISON: 10/14/2020 FINDINGS: Two right cerebral vertex were holes are again seen. Right greater than left cerebral convexity subdural hematomas are grossly unchanged with mild right-sided mass effect but no midline shift. Generalized parenchymal volume loss is again seen without hydrocephalus. There is atherosclerotic calcification of the intracranial circulation. IMPRESSION: Since 10/14/2020, right greater than left convexity subdural hematomas are grossly unchanged.Signed: Case Yates MDReport Verified Date/Time: 10/17/2020 10:01:47 Reading Location: [address] Neuro Reading Room brain without IV [id number] 10:01:00Interface, External Ris In - 10/17/2020 10:[address] Head without contrast CLINICAL HISTORY: Unlisted Reason for Examf/u SDH TECHNIQUE: Contiguous axial CT images through the head without contrast. This exam was performed according to the departmental dose optimization program which includes automated exposure control, adjustment of the mA and/or kV according to the patient size, and/or use of an iterative reconstruction technique. COMPARISON: 10/14/2020 FINDINGS: Two right cerebral vertex were holes are again seen. Right greater than left cerebral convexity subdural hematomas are grossly unchanged with mild right-sided mass effect but no midline shift. Generalized parenchymal volume loss is again seen without hydrocephalus. There is atherosclerotic calcification of the intracranial circulation. IMPRESSION: Since 10/14/2020, right greater than left convexity subdural hematomas are grossly unchanged. Signed: Case Yates MDReport Verified Date/Time: 10/17/2020 10:01:47 Reading Location: [facility] [id number] Neuro [facility] [id number] 07:33:00 Test Item Value Reference Range Interpretation Comments Protein, Total (test 6.0 See_Comment [Autom ated code = 2885-2) message] The system which generated this result transmit rukhsana reference range : 6.0 - 8.3 gm/dL . The reference range was not u sed to interpret th is result as normal/abnormal . Albumin (test code = 3.1 g/dL 3.5-5 L 29888-8) Total Bilirubin (test 0.6 mg/dL 0.2-1.2 code = 1975-2) Bilirubin, Direct 0.3 mg/dL 0.1-0.5 (test code = 1968-7) Alkaline Phosphatase 93 U/L 40-150 (test code = 6768-6) AST (test code = 20 U/L 5-34 1920-8) ALT (test code = 16 U/L 6-55 1742-6) HUONG (test code = HUONG) Advice Nurse ID - ALBINO M Lab Interpretation Abnormal (test code = 03960-3) [facility] [id number] 07:33:00 Test Item Value Reference Range Interpretation Comments SODIUM (BEAKER) 140 meq/L 136-145 (test code = 381) POTASSIUM (BEAKER) 4.5 meq/L 3.5-5.1 (test code = 379) CHLORIDE (BEAKER) 104 meq/L 98-107 (test code = 382) CO2 (BEAKER) (test 28 meq/L 22-29 code = 355) BLOOD UREA NITROGEN 34 mg/dL 7-21 H (BEAKER) (test code = 354) CREATININE (BEAKER) 1.37 mg/dL 0.57-1.25 H (test code = 358) GLUCOSE RANDOM 117 mg/dL 70-105 H (BEAKER) (test code = 652) CALCIUM (BEAKER) 8.5 mg/dL 8.4-10.2 (test code = 697) EGFR (BEAKER) (test 51 mL/min/1.73 ESTIMA RUKHSANA GFR IS code = 1092) sq m NOT ACCURATE CREATININE CLEARANCE IN PREDICTING GLOMERULAR FILTRATION RATE . ESTIMATED GFR I S NOT APPLICABLE FOR DIALYSIS PATIEN TS. Advice Nurse ID - ALBINO [id number] 07:33:00 Test Item Value Reference Range Interpretation Comments MAGNESIUM (BEAKER) (test code = 2.3 mg/dL 1.6-2.6 627) Advice Nurse ID - ALBINO [id number] 07:33:00 Test Item Value Reference Range Interpretation Comments PHOSPHORUS (BEAKER) (test code = 2.9 mg/dL 2.3-4.7 604) Advice Nurse ID - ALBINO MHEPATIC FUNCTION [id number] 07:33:00 Test Item Value Reference Range Interpretation Comments TOTAL PROTEIN (BEAKER) (test code = 6.0 gm/dL 6.0-8.3 770) ALBUMIN (BEAKER) (test code = 1145) 3.1 g/dL 3.5-5.0 L BILIRUBIN TOTAL (BEAKER) (test code 0.6 mg/dL 0.2-1.2 = 377) BILIRUBIN DIRECT (BEAKER) (test 0.3 mg/dL 0.1-0.5 code = 706) ALKALINE PHOSPHATASE (BEAKER) (test 93 U/L 40-150 code = 346) AST (SGOT) (BEAKER) (test code = 20 U/L 5-34 353) ALT (SGPT) (BEAKER) (test code = 16 U/L 6-55 347) Advice Nurse ID - ALBINO MCBC W/PLT COUNT & AUTO [id number] 07:26:00 Test Item Value Reference Range Interpretation Comments WHITE BLOOD CELL COUNT (BEAKER) 9.9 K/ L 3.5-10.5 (test code = 775) RED BLOOD CELL COUNT (BEAKER) 3.17 M/ L 4.63-6.08 L (test code = 761) HEMOGLOBIN (BEAKER) (test code = 9.2 GM/DL 13.7-17.5 L 410) HEMATOCRIT (BEAKER) (test code = 30.0 % 40.1-51.0 L 411) MEAN CORPUSCULAR VOLUME (BEAKER) 94.6 fL 79.0-92.2 H (test code = 753) MEAN CORPUSCULAR HEMOGLOBIN 29.0 pg 25.7-32.2 (BEAKER) (test code = 751) MEAN CORPUSCULAR HEMOGLOBIN CONC 30.7 GM/DL 32.3-36.5 L (BEAKER) (test code = 752) RED CELL DISTRIBUTION WIDTH 24.8 % 11.6-14.4 H (BEAKER) (test code = 412) PLATELET COUNT (BEAKER) (test 277 K/CU MM 150-450 code = 756) MEAN PLATELET VOLUME (BEAKER) 9.6 fL 9.4-12.4 (test code = 754) NUCLEATED RED BLOOD CELLS 0 /100 WBC 0-0 (BEAKER) (test code = 413) NEUTROPHILS RELATIVE PERCENT 80 % (BEAKER) (test code = 429) LYMPHOCYTES RELATIVE PERCENT 11 % (BEAKER) (test code = 430) MONOCYTES RELATIVE PERCENT 8 % (BEAKER) (test code = 431) EOSINOPHILS RELATIVE PERCENT 0 % (BEAKER) (test code = 432) BASOPHILS RELATIVE PERCENT 1 % (BEAKER) (test code = 437) NEUTROPHILS ABSOLUTE COUNT 7.89 K/ L 1.78-5.38 H (BEAKER) (test code = 670) LYMPHOCYTES ABSOLUTE COUNT 1.04 K/ L 1.32-3.57 L (BEAKER) (test code = 414) MONOCYTES ABSOLUTE COUNT (BEAKER) 0.75 K/ L 0.30-0.82 (test code = 415) EOSINOPHILS ABSOLUTE COUNT 0.03 K/ L 0.04-0.54 L (BEAKER) (test code = 416) BASOPHILS ABSOLUTE COUNT (BEAKER) 0.07 K/ L 0.01-0.08 (test code = 417) IMMATURE GRANULOCYTES-RELATIVE 1 % 0-1 PERCENT (BEAKER) (test code = 2801) POCT-GLUCOSE [id number] 07:24:00 Test Item Value Reference Range Interpretation Comments POC-GLUCOSE METER 111 mg/dL 70-110 H : TESTED Siria Tirado [facility] 67[address] (BEAKER) (test code = [place], 1538) [id number]: Advice Nurse/Techni michael ID = [id number] for Mary Galvan POCT-GLUCOSE [id number] 21:58:00 Test Item Value Reference Range Interpretation Comments POC-GLUCOSE METER 177 mg/dL 70-110 H : TESTED Siria Tirado [facility] 67[address] (MIRIAN) (test code = [place], 1538) [address]: Advice Nurse/Techni michael ID = [id number] for Cr oss, [place] U/S, DRAINAGE, W/ CATH [id number] 18:56:00Reason for exam:->ACUTE CHOLECYSTITISCH[facility] : 1945 Sex: MFINAL REPORT Percutaneous cholecystostomy tube placement. History: Acute cholecystitis Medical Billing Supervisor: Leif Ojeda MD. Fiction And Nonfiction Writer Prose: None. Modality: Ultrasound Anesthesia: Lidocaine local infiltration. Estimated blood loss: < 5cc. SEDATION: Moderate sedation was administered. 1 milligram of Versed and 50 micrograms of fentanyl IV was used for moderate sedation monitored under my direction. Total intraservice time ofsedation was 10 minutes. The patient's vital signs were monitored throughout the procedure and recorded in the patient's medical record by the nurse. Technique: Discussion of risks, benefits, and alternatives were made with the Patient. They expressed understanding and agreed to proceed. Informed written consent was obtained. A universal timeout was performed prior to starting the procedure. Standardsterile precautions were utilized. A preliminary ultrasonography was performed to assess the target and determine a safe access site. It showed a safe transhepatic access into an inflamed gallbladder. Pertinent ultrasound images were stored to the PACS for documentation. A right intercostal access site was selected and sterilely prepped and draped. Local anesthesia was administered. A dermatotomy was performed. Using real-time ultrasonographic guidance, an access needle was advanced in a transhepatic fashion into the mid gallbladder body. Bile was recovered. A guidewire was advanced and looped in the gallbladder lumen. Following sequential dilatation, an 8 Burmese locking pigtail drainage catheter was advanced into the gallbladder lumen and the pigtail locked in position. The catheter was securedto skin with nonabsorbable suture. An aseptic dressing applied. The catheter was connected to a SOFÍA bulb. At the end of the procedure, an aseptic dressing applied. The patient tolerated the procedure well. After recovery, the patient was discharged from the department in stable condition. Complications: None immediate. Specimen: Sent to the laboratory Impression: Successful ultrasound-guided 8 Burmese percutaneous transhepatic cholecystostomy placement as describedabove. Thank you for the opportunity to assist in the care of your patient. Signed: Leif Ojeda MDReport Verified Date/Time: 10/16/2020 18:56:16 Reading Location: [place] [address] Angio Body Reading Room US drainage with cath [id number] 18:56:00Interface, External Ris In - 10/16/2020 6:58 PM CDTFINAL REPORT Percutaneous cholecystostomy tube placement. History: Acute cholecystitis Medical Billing Supervisor: Leif Ojeda MD. Fiction And Nonfiction Writer Prose: None. Modality: Ultrasound Anesthesia: Lidocaine local infiltration. Estimated blood loss: < 5 cc. SEDATION: Moderate sedation was administered. 1milligram of Versed and 50 micrograms of fentanyl IV was used for moderate sedation monitored under my direction. Total intraservice time of sedation was 10 minutes. The patient's vital signs were monitored throughout the procedure and recorded in the patient's medical record by the nurse. Technique: Discussion of risks, benefits, and alternatives were made with the Patient. They expressed understanding and agreed to proceed. Informed written consent was obtained. A universal timeout was performed prior to starting the procedure. Standard sterile precautions were utilized. A preliminary ultrasonography was performed to assess the target and determine a safe access site. It showed a safe transhepatic access into an inflamed gallbladder. Pertinent ultrasound images were stored to the PACS for documentation. A right intercostal access site was selected and sterilely prepped and draped. Local anesthesia was administered. A dermatotomy was performed. Using real-time ultrasonographic guidance, an access needle was advanced in a transhepatic fashion into the mid gallbladder body. Bile was recovered.A guidewire was advanced and looped in the gallbladder lumen. Following sequential dilatation, an 8 Burmese locking pigtail drainage catheter was advanced into the gallbladder lumen and the pigtail locked in position. The catheter was secured to skin with nonabsorbable suture. An aseptic dressing applied. The catheter was connected to a SOFÍA bulb. At the end of the procedure, an aseptic dressing applied. The patient tolerated the procedure well. After recovery, the patient was discharged from the department in stable condition. Complications: None immediate. Specimen: Sent to the laboratory Impression: Successful ultrasound-guided 8 Burmese percutaneous transhepatic cholecystostomy placement as described above. Thank you for the opportunity to assist in the care of your patient. Signed: Leif Ojeda Verified Date/Time: 10/16/2020 18:56:16 Reading Location: [place] [address] Angio Body Reading Room [facility] [id number] 16:10:00 Test Item Value Reference Range Interpretation Comments TOTAL PROTEIN (BEAKER) (test code = 6.3 gm/dL 6.0-8.3 770) ALBUMIN (BEAKER) (test code = 1145) 3.4 g/dL 3.5-5.0 L BILIRUBIN TOTAL (BEAKER) (test code 0.7 mg/dL 0.2-1.2 = 377) BILIRUBIN DIRECT (BEAKER) (test 0.4 mg/dL 0.1-0.5 code = 706) ALKALINE PHOSPHATASE (BEAKER) (test 95 U/L 40-150 code = 346) AST (SGOT) (BEAKER) (test code = 18 U/L 5-34 353) ALT (SGPT) (BEAKER) (test code = 14 U/L 6-55 347) Advice Nurse ID - DBOperator ID - DBCT, [id number] 11:13:00Unlisted Reason for Exam - Click Yes and Enter Reason Below->YesUnlisted Reason for Exam- >RUQ and epigastric pain with possible acute sylvia, eval for biliary pancreatitis and possible complications of pancreatitisWill this procedure require oral contrast?->No [facility] : 1945 Sex: MFINAL REPORT CT, ABDOMEN \T\ PELVIS, WITH IV CONTRAST HISTORY: Abd ominal pain, feverRUQ and epigastric pain with possible acute sylvia, eval for biliary pancreatitis and possible complications of pancreatitis COMPARISON: Abdominal ultrasound 10/15/2020 TECHNIQUE: CT of the abdomen and pelvis WITH intravenous contrast and WITHOUT oral contrast. The examination was performed according to the departmental dose-optimization program, which includes automated exposure control, adjustment of the mA and/or kV according to patient size and/or use of iterative reconstruction technique. FINDINGS: Lower thorax: Calcified pulmonary nodules related to old granulomatous disease. Subpleural dependent reticulations and ground glass and respiratory motion artifact. An 18 x 13 mm solid pulmonary nodule in the medial basal right lower lobe abutting the pericardium and pleura,with a punctate calcification at the periphery of the solid pulmonary nodule.Liver: 23 cm hepatomegaly.Gallbladder and bile ducts: The gallbladder is overdistended with gallbladder wall thickening and pericholecystic edema. There is no biliary ductal dilationSpleen: Unremarkable.Pancreas: Pancreas is moderately atrophic without ductal dilation. No peripancreatic stranding beyond the stranding at theporta hepatis related to the patient's cholecystitisAdrenals: UnremarkableKidneys and ureters: Subcen timeter low density renal lesions too small to characterize but likely representing cysts. No hydronephrosis. Slightly lobulated contour suggesting scarring bilaterallyBowel: Nondilated bowel with no wall thickening. Moderate amount of stool throughout the colon. Appendix not visualized, however there is no right lower quadrant inflammatory change to suggest acute appendicitis.Bladder: Unremarkable.Reproductive organs: Unremarkable.Lymph nodes: Upper retroperitoneal and serenity hepatis lymph nodes upto 11 mm short axis, nonspecific but most likely reactive.Peritoneum: Stranding about the gallbladder. Small perihepatic free fluid is likely reactive.Vessels: Moderate atherosclerotic calcifications. Small ulcerated plaque of the infrarenal abdominal aorta without aneurysm. Mild narrowing of the proximal celiac axisAbdominal wall: A 2.1 x 2.5 x 0.9 cm lipomatous lesion of the left anterior abdominalwall, abuts the left rectus abdominis muscle, has some internal stranding/soft tissue density and punctate peripheral calcification.Bones: Multilevel degenerative changes of the lumbar spine. IMPRESSION: Motion degraded exam 1.Acute cholecystitis. No biliary ductal dilation. 2.No discrete CT evidence for pancreatitis. Correlate with serum lipase. 3.An 18 mm solid pulmonary nodule in the medial basal right lower lobe; recommend [address] chest or PET-CT correlation. Could be related to old granulomatous disease as it has a punctate calcification at the periphery. 4.A 2.1 cm lipomatous lesion of the left anterior abdominal wall. Slightly more complex than a simple lipoma. A 3 month follow-up musculoskeletal protocol abdominal wall MRI without and with IV contrast follow-up is recommended. Signed: Piotr David Verified Date/Time: 10/16/2020 11:13:59 Reading Location: [facility] C013Y CT Body Reading Room abdomen/pelvis with IV [id number] 11:13:00Interface, External Ris In - 10/16/2020 11:[address], ABDOMEN \T\ PELVIS, WITH IV CONTRAST HISTORY: Abdominal pain, feverRUQ and epigastric pain with possible acute sylvia, eval for biliary pancreatitis and possible complications of pancreatitis COMPARISON: Abdominal ultrasound 10/15/2020 TECHNIQUE: CT of the abdomen and pelvis WITH intravenous contrast and WITHOUT oral contrast. The examination was performed according to the departmental dose-optimization program, which includes automated exposure control, adjustment of the mA and/or kV according to patient size and/or use of iterative reconstruction technique. FINDINGS: Lower thorax: Calcified pulmonary nodules related to old granulomatous disease. Subpleural dependent reticulations and ground glass and respiratory motion artifact. An 18 x 13 mm solid pulmonary nodule in the medial basal right lower lobe abutting the pericardium and pleura, with a punctate calcification at the periphery of the solid pulmonary nodule.Liver: 23 cm hepatomegaly.Gallbladder and bile ducts: The gallbladder is overdistended with gallbladder wall thickening and pericholecystic edema. There is no biliary ductal dilationSpleen: Unremarkable.Pancreas: Pancreas is moderately atrophic without ductal dilation. No peripancreatic stranding beyond the stranding at the serenity hepatis related to the patient's cholecystitisAdrenals: UnremarkableKidneys and ureters: Subcentimeter low density renal lesions too small to characterize but likely representing cysts. No hydronephrosis. Slightly lobulated contour suggesting scarring bilat erallyBowel: Nondilated bowel with no wall thickening. Moderate amount of stool throughout the colon. Appendix not visualized, however there is no right lower quadrant inflammatory change to suggest acute appendicitis.Bladder: Unremarkable.Reproductive organs: Unremarkable.Lymph nodes: Upper retroperi toneal and serenity hepatis lymph nodes up to 11 mm short axis, nonspecific but most likely reactive.Peritoneum: Stranding about the gallbladder. Small perihepatic free fluid is likely reactive.Vessels: Moderate atherosclerotic calcifications. Small ulcerated plaque of the infrarenal abdominal aorta without aneurysm. Mild narrowing of the proximal celiac axisAbdominal wall: A 2.1 x 2.5 x 0.9 cm lipomatous lesion of the left anterior abdominal wall, abuts the left rectus abdominis muscle, has some internal stranding/soft tissue density and punctate peripheral calcification.Bones: Multilevel degenerative changes of the lumbar spine. IMPRESSION: Motion degraded exam 1.Acute cholecystitis. No biliary ductal dilation. 2.No discrete CT evidence for pancreatitis. Correlate with serum lipase. 3.An 18 mm solid pulmonary nodule in the medial basal right lower lobe; recommend [address] chest or PET-CT correlation. Could be related to old granulomatous disease as it has a punctate calcification at the periphery. 4.A 2.1 cm lipomatous lesion of the left anterior abdominal wall. Slightly more complex than a simple lipoma. A 3 month follow-up musculoskeletal protocol abdominal wall MRI without and with IV contrast follow-up is recommended. Signed: Piotr Davideport Verified Date/Time: 10/16/2020 11:13:59 Reading Location: [facility] B1 C013Y CT Body Reading [facility] [id number] 08:22:00 Test Item Value Reference Range Interpretation Comments POC-GLUCOSE METER 129 mg/dL 70-110 H : TESTED A T [facility] 6720 (BEAKER) (test code = [place], 1538) [id number]: Advice Nurse/Techni michael ID = [id number] for SHAHRIAR HANDLEY BASIC METABOLIC [id number] 07:09:00 Test Item Value Reference Range Interpretation Comments SODIUM (BEAKER) 139 meq/L 136-145 (test code = 381) POTASSIUM (BEAKER) 4.3 meq/L 3.5-5.1 (test code = 379) CHLORIDE (BEAKER) 103 meq/L 98-107 (test code = 382) CO2 (BEAKER) (test 29 meq/L 22-29 code = 355) BLOOD UREA NITROGEN 23 mg/dL 7-21 H (BEAKER) (test code = 354) CREATININE (BEAKER) 1.14 mg/dL 0.57-1.25 (test code = 358) GLUCOSE RANDOM 133 mg/dL 70-105 H (BEAKER) (test code = 652) CALCIUM (BEAKER) 9.1 mg/dL 8.4-10.2 (test code = 697) EGFR (BEAKER) (test 63 mL/min/1.73 ESTIMA RUKHSANA GFR IS code = 1092) sq m NOT ACCURATE CREATININE CLEARANCE IN PREDICTING GLOMERULAR FILTRATION RATE . ESTIMATED GFR I S NOT APPLICABLE FOR DIALYSIS PATIEN TS. Advice Nurse ID - [id number] 07:09:00 Test Item Value Reference Range Interpretation Comments MAGNESIUM (BEAKER) (test code = 2.1 mg/dL 1.6-2.6 627) Advice Nurse ID - [id number] 07:09:00 Test Item Value Reference Range Interpretation Comments PHOSPHORUS (BEAKER) (test code = 2.1 mg/dL 2.3-4.7 L 604) Advice Nurse ID - EMERSONCBC W/PLT COUNT & AUTO [id number] 06:45:00 Test Item Value Reference Range Interpretation Comments WHITE BLOOD CELL COUNT (BEAKER) 20.4 K/ L 3.5-10.5 H (test code = 775) RED BLOOD CELL COUNT (BEAKER) 3.59 M/ L 4.63-6.08 L (test code = 761) HEMOGLOBIN (BEAKER) (test code = 10.3 GM/DL 13.7-17.5 L 410) HEMATOCRIT (BEAKER) (test code = 33.2 % 40.1-51.0 L 411) MEAN CORPUSCULAR VOLUME (BEAKER) 92.5 fL 79.0-92.2 H (test code = 753) MEAN CORPUSCULAR HEMOGLOBIN 28.7 pg 25.7-32.2 (BEAKER) (test code = 751) MEAN CORPUSCULAR HEMOGLOBIN CONC 31.0 GM/DL 32.3-36.5 L (BEAKER) (test code = 752) RED CELL DISTRIBUTION WIDTH 23.4 % 11.6-14.4 H (BEAKER) (test code = 412) PLATELET COUNT (BEAKER) (test 285 K/CU MM 150-450 code = 756) MEAN PLATELET VOLUME (BEAKER) 9.0 fL 9.4-12.4 L (test code = 754) NUCLEATED RED BLOOD CELLS 0 /100 WBC 0-0 (BEAKER) (test code = 413) NEUTROPHILS RELATIVE PERCENT 89 % (BEAKER) (test code = 429) LYMPHOCYTES RELATIVE PERCENT 7 % (BEAKER) (test code = 430) MONOCYTES RELATIVE PERCENT 2 % (BEAKER) (test code = 431) EOSINOPHILS RELATIVE PERCENT 0 % (BEAKER) (test code = 432) BASOPHILS RELATIVE PERCENT 0 % (BEAKER) (test code = 437) NEUTROPHILS ABSOLUTE COUNT 18.05 K/ L 1.78-5.38 H (BEAKER) (test code = 670) LYMPHOCYTES ABSOLUTE COUNT 1.51 K/ L 1.32-3.57 (BEAKER) (test code = 414) MONOCYTES ABSOLUTE COUNT (BEAKER) 0.48 K/ L 0.30-0.82 (test code = 415) EOSINOPHILS ABSOLUTE COUNT 0.01 K/ L 0.04-0.54 L (BEAKER) (test code = 416) BASOPHILS ABSOLUTE COUNT (BEAKER) 0.07 K/ L 0.01-0.08 (test code = 417) IMMATURE GRANULOCYTES-RELATIVE 1 % 0-1 PERCENT (BEAKER) (test code = 2801) U/S, ABDOMINAL, [id number] 01:25:00Abdomen limited area? Add comment if clarification is needed.->Gall BladderReason for exam:->RUQ, epigastric pain; evaluate for biliary pancreatitis [facility] : 1945 Sex: MFINAL REPORT Exam: Limited abdominal ultrasound. Clinical History: RUQ, epigastric pain; evaluate for biliary pancreatitis . Comparison: No prior study for direct comparison. Findings: Sonographic evaluation of the right upper quadrant of the abdomen was performed.Liver: 15.2 cm in length at the right midclavicular line. Normal echogenicity. No lesion is identified by ultrasound. Main portal vein is patent measuring 1.1 cm in diameter and demonstrates hepatopetal flow. Biliary tree: Common duct 3 mm. No intrahepatic biliary ductal dilatation. Gallbladder: Small gallbladder sludge. No shadowing calculus/calculi. No wall thickening. No gallbladder wall hyperemia. Trace pericholecystic fluid. Positive sonographic Lopes's sign. Pancreas: Partially obscured by bowel gas but the visualized portions are unremarkable. Ascites: None seen. Right kidney: 9.2 x 5 x 5.1 cm with cortical thickness of 1.0 cm. Normal cortical echogenicity. No mass. No shadowing calculus. No hydronephrosis. IVC/Aorta: Segments partially seen. Unremarkable. Impression: Trace pericholecystic fluid and positive sonographic Lopes's sign, which may represent acute cholecystitis in the proper clinical setting. A HIDA scan may be performed to evaluate cystic duct patency as clinically warranted. No biliary ductal dilatation. Signed: Aly Ibarra MDReport Verified Date/Time: 10/16/2020 01:25:51 US abdomen [id number] 01:25:00Interface, External Ris In - 10/16/2020 1:32 AM CDTFINAL REPORT Exam: Limited abdominal ultrasound. Clinical History: RUQ, epigastric pain; evaluate for biliary pancreatitis .Comparison: No prior study for direct comparison. Findings: Sonographic evaluation of the right upper quadrant of the abdomen was performed. Liver: 15.2 cm in length at the right midclavicular line.Normal echogenicity. No lesion is identified by ultrasound. Main portal vein is patent measuring1.1 cm in diameter and demonstrates hepatopetal flow. Biliary tree: Common duct 3 mm. No intrahepatic biliary ductal dilatation. Gallbladder: Small gallbladder sludge. No shadowing calculus/calculi. No wall thickening. No gallbladder wall hyperemia. Trace pericholecystic fluid. Positive sonographic Lopes's sign. Pancreas: Partially obscured by bowel gas but the visualized portions are unremarkable. Ascites: None seen. Right kidney: 9.2 x 5 x 5.1 cm with cortical thickness of 1.0 cm. Normalcortical echogenicity. No mass. No shadowing calculus. No hydronephrosis. IVC/Aorta: Segments partially seen. Unremarkable. Impression: Trace pericholecystic fluid and positive sonographic Lopes's sign, which may represent acute cholecystitis in the proper clinical setting. A HIDA scan may be performed to evaluate cystic duct patency as clinically warranted. No biliary ductal dilatation. Signed: Aly Ibarra MDReport Verified Date/Time: 10/16/2020 01:25:51 [facility] [id number] 21:25:00 Test Item Value Reference Range Interpretation Comments POC-GLUCOSE METER 178 mg/dL 70-110 H : TESTED A T [facility] 67[address] (Arstasis) (test code = [place], [address]38) [id number]: Advice Nurse/Techni michael ID = [id number] for DO SIGIFREDO ALA POCT-GLUCOSE [id number] 16:48:00 Test Item Value Reference Range Interpretation Comments POC-GLUCOSE METER 208 mg/dL 70-110 H : TESTED A T [facility] 6720 (BEAKER) (test code = [place] [facility], 1538) [address]: Advice Nurse/Techni michael ID = [id number] for RO DGRAJINDER GIRARDECA POCT-GLUCOSE [id number] 13:01:00 Test Item Value Reference Range Interpretation Comments POC-GLUCOSE METER 251 mg/dL 70-110 H : TESTED A T [facility] 6720 (BEAKER) (test code = [place] [facility], 1538) [address]: Advice Nurse/Techni michael ID = [id number] for RO DGSHAHRIAR GIRARD SARS-CoV2/RT-PCR (Asymptomatic ONLY)2020-10-15 12:38:00 Test Item Value Reference Range Interpretation Comments SARS-COV2/RT-PCR Negative Not Detected, (test code = Negative, See 71484-3) external report for linked test SARS-COV-2 [facility] PER[facility] (test code = 71246-3) HUONG (test code = Negative result for this HUONG) test determines that SARS-CoV-2 RNA was not present in the specimen above the Limit of Detection (LOD). However, Negative results do not preclude SARS-CoV-2 infection and should not be used as the sole basis for treatment or patient management decisions. Negative results must be combined with clinical observations, patient history, and epidemiological information. A false negative result may occur if a specimen is improperly collected, transported or handled. A false negative result should be considered if patient's recent exposures or clinical presentation indicate that COVID-19 (SARS-CoV-2) is likely and diagnostic tests for other causes of illness are negative. Re-testing should be considered in cases of suspected false negatives. The limit of detection for this assay is 800 copies/mL. This SARS CoV-2 test is a real-time RT-PCR test intended for the qualitative detection of nucleic acid from SARS-CoV-2 in a nasopharyngeal swab specimen collected from individuals suspected of COVID-19 by their healthcare provider. This test has not been Food and Drug Administration (FDA) cleared or approved. This is a modified version of an approved Emergency Use Authorization (EUA) and is in the process of review by the FDA. Once authorized by the FDA, the issued EUA will be effective until the declaration that circumstances exist justifying the authorization of the emergency use of in vitro diagnostic tests for detection and/or diagnosis of COVID-19 is terminated under Section 564(b)(2) of the Act or the EUA is revoked under Section 564(g) of the Act. Fact Sheet for Healthcare Providers:https://www.[employer]/sites/default/f lester/product/documents/F act_Sheet_HC_Providers_L ycn_TYUT-UyH-6.pdf Fact Sheet for Healthcare Patients:https://www.[employer]/sites/default/fi les/product/documents/Fa ct_Sheet_Patients_Lyra_S ARS-CoV-2.pdf Performing Laboratory:[facility]ARS-COV2/RT-PCR ([facility])2020-10-15 12:38:00 Test Item Value Reference Range Interpretation Comments SARS-COV2/RT-PCR (test Negative Not Detected, Negative, code = 3438612) See external report for linked test SARS-COV-2 PERFORMING LAB [facility] DANNY (test code = 4246825) Negative result for this test determines that SARS-CoV-2 RNA was not present in the specimen above the Limit of Detection (LOD). However, Negative results do not preclude SARS-CoV-2 infection and should not be used as the sole basis for treatment or patient management decisions. Negative results mustbe combined with clinical observations, patient history, and epidemiological information. A false negative result may occur if a specimen is improperly collected, transported or handled. A false negative result should be considered if patient's recent exposures or clinical presentation indicate that COVID-19 (SARS-CoV-2) is likely and diagnostic tests for other causes of illness are negative. Re-testing should be considered in cases of suspected false negatives.The limit of detection for this assay is 800 copies/mL.This SARS CoV-2 test is a real-time RT-PCR test intended for the qualitative detection of nucleic acid from SARS-CoV-2 in a nasopharyngeal swab specimen collected from individuals susp ected of COVID-19 by their healthcare provider.This test has not been Food and Drug Administration (FDA) cleared or approved. This is a modified version of an approved Emergency Use Authorization (EUA) and is in the process of review by the FDA. Once authorized by the FDA, the issued EUA will be effective until the declaration that circumstances exist justifying the authorization of the emergency use of in vitro diagnostic tests for detection and/or diagnosis of COVID-19 is terminated under Section 564(b)(2) of the Act or the EUA is revoked under Section 564(g) of the Act.Fact Sheet for Healthcare Providers:https://www.[employer]/sites/default/files/product/documents/Fact_Shee v_KJ_Zecqqdkvo_Cjhp_PPMN-ZsG-7.pdfFact Sheet for Healthcare Patients:https://www.[employer]/sites/default/files/product/ documents/Txnj_Nqsdf_Lqkfdjti_Gmxy_MKRS-OmF-1.pdfPerforming Laboratory:[facility], [place] [id number] 12:14:00 Test Item Value Reference Range Interpretation Comments Lipase (test code = 3040-3) 10 U/L HUONG (test code = HUONG) Advice Nurse ID - DB Lab Interpretation (test Normal code = 29114-8) [facility] 12:14:00 Test Item Value Reference Range Interpretation Comments LIPASE (BEAKER) (test code = 749) 10 U/L Advice Nurse ID - DBBlood gas, [id number] 08:49:00 Test Item Value Reference Range Interpretation Comments pH, Rikki (test code = 7.44 7.32-7.42 H 2746-6) pCO2, Rikki (test code = 39 See_Comment L [Aut omated message] 015) The system [employer] generated this result transmit rukhsana reference range : 41 - 51 mm Hg. The reference range was not used to interpret this result as normal/abnormal . pO2, Rikki (test code = 70 See_Comment H [Auto mated message] 6875-2) The system [employer] generated this result transmit rukhsana reference range : 25 - 40 mm Hg. The reference range was not used to interpret this result as normal/abnormal . O2 Sat, Rikki (test code 95.1 % 40-70 H = 2711-0) HCO3, Rikki (test code = 26 mmol/L 21-29 79086-8) Base Excess, Rikki (test 1.6 mmol/L -2-3 code = 1927-3) Patient Temperature 36.3 (test code = 8310-5) FIO2 (test code = 1819) 21 Lab Interpretation Abnormal (test code = 15634-1) [facility], [id number] 08:49:00 Test Item Value Reference Range Interpretation Comments PH VENOUS (BEAKER) (test code = 7.44 7.32-7.42 H 701) PCO2 VENOUS (BEAKER) (test code = 39 mm Hg 41-51 L 755) PO2 VENOUS (BEAKER) (test code = 70 mm Hg 25-40 H 702) O2 SATURATION VENOUS (BEAKER) 95.1 % 40.0-70.0 H (test code = 703) HCO3 VENOUS (BEAKER) (test code = 26 mmol/L 21-29 705) BASE EXCESS VENOUS (BEAKER) (test 1.6 mmol/L -2.0-3.0 code = 704) PATIENT TEMPERATURE (BEAKER) (test 36.3 code = 1818) FIO2 (BEAKER) (test code = 1819) 21.0 POCT-GLUCOSE [id number] 08:06:00 Test Item Value Reference Range Interpretation Comments POC-GLUCOSE METER 214 mg/dL 70-110 H : TESTED A T [facility] [address] (BEAKER) (test code = [place], 1538) [address]: Advice Nurse/Techni michael ID = [id number] for SHAHRIAR HANDLEY RAD, CHEST, 1 VIEW, NON [id number] 07:03:00Reason for exam:->FeverShould this be performed at the bedside?->Yes [facility] 1945 Sex: MFINAL REPORT TECHNIQUE: Frontal view of the chest. INDICATION: Fever. COMPARISON: Radiograph from 07/02/2020. FINDINGS: LINES/TUBES: None. LUNGS: A left basilar calcified granuloma is unchanged. Pulmonary venous congestion. There is some patchy opacity of the right lateral base which is new. PLEURA: Mild blunting of the right costophrenic sulcus. HEART AND MEDIASTINUM: The cardiac silhouette is normal in size. Mild calcification of the descending thoracic aorta. SOFT TISSUES AND BONES: Unremarkable. IMPRESSION: There is a small right pleural effusion with some right basilar opacity. This could be atelectasis or pneumonia depending on clinical setting. A follow-up chest radiograph is recommended eight weeks after treatment to document resolution. Pulmonary venous congestion. Signed: Margie Austin MDRepranken jordan [facility] Verified Date/Time: 10/15/2020 07:03:46 Reading Location: [address] Ortho Consult Reading Room XR chest 1 view portable / [id number] 07:03:00Interface, External Ris In - 10/15/2020 7:06 AM CDTFINAL REPORT TECHNIQUE: Frontal view of the chest. INDICATION: Fever. COMPARISON: Radiograph from 07/02/2020. FINDINGS: LINES/TUBES: None. LUNGS: A left basilar calcified granuloma is unchanged. Pulmonary venous congestion. There is some patchy opacity of the right lateral base which is new. PLEURA: Mild blunting of the right costophrenic sulcus. HEART AND MEDIASTINUM: The cardiac silhouette is normal in size. Mild calcification of the descending thoracic aorta. SOFT TISSUES AND BONES: Unremarkable. IMPRESSION: There is a small right pleural effusion with some right basilar opacity. This could be atelectasis or pneumonia depending on clinical setting. A follow-up chest radiograph is recommended eight weeks after treatmentto document resolution. Pulmonary venous congestion. Signed: Margie Austin Verified Date/Time: 10/15/2020 07:03:46 Reading Location: [facility] B1 C013X Ortho Consult Reading Room [facility] [id number] 06:11:00 Test Item Value Reference Range Interpretation Comments Lactate, Venous (test code = 0.90 mmol/L 0.5-2.2 2872) HUONG (test code = HUONG) Advice Nurse ID - DB Lab Interpretation (test Normal code = 64357-9) [facility] HospitalLACTIC ACID, [id number] 06:11:00 Test Item Value Reference Range Interpretation Comments LACTATE BLOOD VENOUS (2) (BEAKER) 0.90 mmol/L 0.50-2.20 (test code = 2872) Advice Nurse ID - DBCBC W/PLT COUNT & AUTO [id number] 06:01:00 Test Item Value Reference Range Interpretation Comments WHITE BLOOD CELL COUNT (BEAKER) 20.7 K/ L 3.5-10.5 H (test code = 775) RED BLOOD CELL COUNT (BEAKER) 3.77 M/ L 4.63-6.08 L (test code = 761) HEMOGLOBIN (BEAKER) (test code = 11.1 GM/DL 13.7-17.5 L 410) HEMATOCRIT (BEAKER) (test code = 34.4 % 40.1-51.0 L 411) MEAN CORPUSCULAR VOLUME (BEAKER) 91.2 fL 79.0-92.2 (test code = 753) MEAN CORPUSCULAR HEMOGLOBIN 29.4 pg 25.7-32.2 (BEAKER) (test code = 751) MEAN CORPUSCULAR HEMOGLOBIN CONC 32.3 GM/DL 32.3-36.5 (BEAKER) (test code = 752) RED CELL DISTRIBUTION WIDTH 23.6 % 11.6-14.4 H (BEAKER) (test code = 412) PLATELET COUNT (BEAKER) (test 325 K/CU MM 150-450 code = 756) MEAN PLATELET VOLUME (BEAKER) 8.8 fL 9.4-12.4 L (test code = 754) NUCLEATED RED BLOOD CELLS 0 /100 WBC 0-0 (BEAKER) (test code = 413) NEUTROPHILS RELATIVE PERCENT 92 % (BEAKER) (test code = 429) LYMPHOCYTES RELATIVE PERCENT 3 % (BEAKER) (test code = 430) MONOCYTES RELATIVE PERCENT 3 % (BEAKER) (test code = 431) EOSINOPHILS RELATIVE PERCENT 0 % (BEAKER) (test code = 432) BASOPHILS RELATIVE PERCENT 0 % (BEAKER) (test code = 437) NEUTROPHILS ABSOLUTE COUNT 19.02 K/ L 1.78-5.38 H (BEAKER) (test code = 670) LYMPHOCYTES ABSOLUTE COUNT 0.64 K/ L 1.32-3.57 L (BEAKER) (test code = 414) MONOCYTES ABSOLUTE COUNT (BEAKER) 0.64 K/ L 0.30-0.82 (test code = 415) EOSINOPHILS ABSOLUTE COUNT 0.00 K/ L 0.04-0.54 L (BEAKER) (test code = 416) BASOPHILS ABSOLUTE COUNT (BEAKER) 0.06 K/ L 0.01-0.08 (test code = 417) IMMATURE GRANULOCYTES-RELATIVE 2 % 0-1 H PERCENT (BEAKER) (test code = 2801) POCT-GLUCOSE [id number] 00:46:00 Test Item Value Reference Range Interpretation Comments POC-GLUCOSE METER 150 mg/dL 70-110 H : TESTED A T [facility] [address] (BEAKER) (test code = [place], 1538) [address]: Advice Nurse/Techni michael ID = [id number] for JENNIFER CRAFT Urinalysis w/[id number] 00:42:00 Test Item Value Reference Range Interpretation Comments Color, UA (test code Yellow = 5778-6) Clarity, UA (test Clear code = 5767-9) Specific [place], UA 1.028 1.001-1.035 (test code = 5811-5) pH, UA (test code = 6.0 5.0-8.0 5803-2) Protein, UA (test 30 mg/dL Negative A code = 33445-5) Glucose, UA (test Negative Negative code = 365) Ketones, UA (test 20 mg/dL Negative A code = 2514-8) Bilirubin, UA (test Negative Negative code = 55917-5) Blood, UA (test code Trace Negative A = 44224-4) Nitrite, UA (test Negative Negative code = 5802-4) Leukocytes, UA (test Negative Negative code = 5799-2) Urobilinogen, UA 2.0 mg/dL 0.2-1 H (test code = 51373-9) RBC, UA (test code = 4 See_Comment [Autom ated 63759-9) message] The system which generated this result transmit rukhsana reference range : /HPF. The reference range was not used to interpret this result as normal/abnormal . WBC, UA (test code = 3 See_Comment [Autom ated 5821-4) message] The system which generated this result transmit rukhsana reference range : /HPF. The reference range was not used to interpret this result as normal/abnormal . Bacteria, UA (test Rare code = 85273-6) Squam Epithel, UA <1 See_Comment [Automate d (test code = 25387-4) messag e] The system which generated this result transmit rukhsana reference range : /HPF. The reference range was not used to interpret this result as normal/abnormal . Crystals, Urine (test None Seen code = 49168-7) Specimen Source (test code = 2795) HUONG (test code = HUONG) Advice Nurse ID - [auto]Advice Nurse ID - tech Lab Interpretation Abnormal (test code = 96724-8) [facility] W/ [id number] 00:42:00 Test Item Value Reference Range Interpretation Comments COLOR (BEAKER) (test code = 470) Yellow CLARITY (BEAKER) (test code = 469) Clear SPECIFIC GRAVITY UA (BEAKER) (test 1.028 1.001-1.035 code = 468) PH UA (BEAKER) (test code = 467) 6.0 5.0-8.0 PROTEIN UA (BEAKER) (test code = 30 mg/dL Negative A 464) GLUCOSE UA (BEAKER) (test code = Negative Negative 365) KETONES UA (BEAKER) (test code = 20 mg/dL Negative A 371) BILIRUBIN UA (BEAKER) (test code = Negative Negative 462) BLOOD UA (BEAKER) (test code = 461) Trace Negative A NITRITE UA (BEAKER) (test code = Negative Negative 465) LEUKOCYTE ESTERASE UA (BEAKER) Negative Negative (test code = 466) UROBILINOGEN UA (BEAKER) (test code 2.0 mg/dL 0.2-1.0 H = 463) RBC UA (BEAKER) (test code = 519) 4 /HPF WBC UA (BEAKER) (test code = 520) 3 /HPF BACTERIA (BEAKER) (test code = 517) Rare SQUAMOUS EPITHELIAL (BEAKER) (test < /HPF code = 516) CRYSTALS, URINE (BEAKER) (test code None Seen = 1521) SOURCE(BEAKER) (test code = 2795) Advice Nurse ID - [auto]Advice Nurse ID - techPOCT-GLUCOSE [id number] 16:26:00 Test Item Value Reference Range Interpretation Comments POC-GLUCOSE METER 121 mg/dL 70-110 H : TESTED A T [facility] [address] (BEAKER) (test code = BANNER Herb [facility], 1538) [address]: Advice Nurse/Techni michael ID = [id number] for Magan grant (pca2)Zoila High Sensitivity Troponin I ([facility]Emily Only)2020-10-14 11:57:00 Test Item Value Reference Range Interpretation Comments Troponin I HS 29 pg/ml See_Comment [Automated (test code = message] The 12591-1) system which generated this result transmitted reference range : <=35. The reference range was not used to interpret this result as normal/abnormal . HUONG (test code = Advice Nurse ID - ALBINO HUONG) [employer] TRANSFILL TECHNICIAN STAT High Sensitivity Troponin-I results should be used in conjunction with other diagnostic information such as ECG, clinical observations and information, and patient symptoms to aid in the diagnosis of NH. Lab Interpretation Normal (test code = 39652-1) [facility]IT[facility] TROPONIN [id number] 11:57:00 Test Item Value Reference Range Interpretation Comments HIGH SENSITIVITY 29 pg/ml See_Comment [Automated message] TROPONIN I (test code = The system which 7090086) generated this result transmitted ref erence range: <=35. Th e reference range was not used to int erpret this result as normal/abnormal . Advice Nurse ID - ALBINO [employer] TRANSFILL TECHNICIAN STAT High Sensitivity Troponin-I results should be used in conjunction with other diagnostic information such as ECG, clinical observations and information, and patient symptoms to aid in the diagnosis of NH.POCT-GLUCOSE [id number] 11:04:00 Test Item Value Reference Range Interpretation Comments POC-GLUCOSE METER 137 mg/dL 70-110 H : TESTED A T [facility] 67[address] (BEAKER) (test code = SHER Estevez [facility], 1538) [address]: Advice Nurse/Techni michael ID = [id number] for Magan grant (pca2)Zoila Rapid drug screen, [id number] 10:57:00 Test Item Value Reference Range Interpretation Comments Barbiturate Screen Negative Negative (test code = 21148-1) Benzodiazepine Screen Negative Negative (test code = 95211-8) Cocaine (Metab.) Negative Negative Screen (test code = 3397-7) Methadone Screen (test Negative Negative code = 56311-0) Opiate Screen (test Positive Negative A code = 31229-8) Cannabinoid Screen Negative Negative (test code = 92968-5) Amph/Methamph Screen Negative Negative (test code = 69042-4) Phencyclidine Screen Negative Negative (test code = 47660-0) pH, UA (test code = 5.5 5.0-8.0 5803-2) HUONG (test code = HUONG) DRUG CUTOFF CONC.Cocaine 300 ng/mL Cannabinoid 50 ng/mLBenzodiazepine 200 ng/mLBarbiturate 200 ng/mLPhencyclidine 25 ng/mLOpiate 300 ng/mLMethadone 300 ng/mLAmphetamine/ 1000 ng/mL Methamphetamine This assay provides an unconfirmed qualitative test result for the clinical management of patients in emergency situations. Chain of custody not maintained. Some uxiv-obh-pfhruhd medications, as well as adulterants, may cause inaccurate results. Clinical correlation should be applied. A more comprehensive drug screen or confirmation of a detected drug may be performed upon request.Advice Nurse ID - ALBINO MOperator ID - [auto] Lab Interpretation Abnormal (test code = 84487-4) [facility] Hospital[facility] DR[facility] SCREEN, [id number] 10:57:00 Test Item Value Reference Range Interpretation Comments BARBITURATE URINE (BEAKER) (test Negative Negative code = 725) BENZODIAZEPINE SCREEN URINE (BEAKER) Negative Negative (test code = 726) COCAINE (METAB.) SCREEN (BEAKER) Negative Negative (test code = 1164) METHADONE SCREEN (BEAKER) (test code Negative Negative = 1436) OPIATE SCREEN URINE (BEAKER) (test Positive Negative A code = 734) CANNABINOID SCREEN URINE (BEAKER) Negative Negative (test code = 727) AMPH/METHAMPH SCREEN (BEAKER) (test Negative Negative code = 1438) PHENCYCLIDINE SCREEN URINE (BEAKER) Negative Negative (test code = 608) PH UA (BEAKER) (test code = 467) 5.5 5.0-8.0 DRUG CUTOFF CONC.Cocaine 300 ng/mL Cannabinoid 50 ng/mLBenzodiazepine 200 ng/mLBarbiturate 200 ng/mLPhencyclidine 25 ng/mLOpiate 300 ng/mLMethadone 300 ng/mLAmphetamine/ 1000 ng/mL MethamphetamineThis assay provides an unconfirmed qualitative test result for the clinical management of patients in emergency situations. Chain of custody not maintained. Some hnnq-znx-fbaejex medications, as well as adulterants, may cause inaccurate results. Clinical correlation should be applied. A more comprehensivedrug screen or confirmation of a detected drug may be performed upon request.Advice Nurse ID - ALBINO MOperator ID - [auto]CT, BRAIN, WITHOUT [id number] 10:42:00Unlisted Reason for Exam - Click Yes and Enter Reason Below->YesUnlisted Reason for Exam->R SDH frontoparietal convexity. [facility] : 1945 Sex: MFINAL REPORT CT, BRAIN, WITHOUT CONTRAST INDICATION: Unlisted Reason for ExamR SDH frontoparietal convexity. Follow up TECHNIQUE: Noncontrast axial imaging was obtained from the vertex to the skull base. Axial images were reconstructed using a bone algorithm. DOSE REDUCTION: Dose modulation, iterative reconstruction, and/or weight-based adjustment of the mA/kV was utilized to reduce the radiation dose to as low as reasonably achievable. COMPARISON: CT 07/06/2020 FINDINGS: Intracranial: Extra-axial drain has been removed in the interim. There is a persistent mixed attenuation subdural collection along the right convexity, measuring up to 0.9 cm in maximum thickness,decreased from 1.8 cm on the previous exam. Left convexity subdural collection has resolved. No new site of hemorrhage. No evidence of acute territorial infarct. No mass effect. No hydrocephalus. Osseous structures: Right frontal and parietal fatemeh holes. No fracture. No suspicious lesion. Paranasal sinuses and mastoid air cells: No evidence of sinusitis. Mastoids are clear. Orbital contents: Globes are intact. IMPRESSION: Interval decrease in size of right convexity subdural hematoma, and resolutionof left convexity subdural hematoma. Signed: Heidy Caicedo Verified Date/Time: 110:42:46 Prothrombin time/[id number] 10:00:00 Test Item Value Reference Interpretation Comments Range Protime (test code = 9.9 See_Comment [Autom ated 5902-2) message] The system which generated this result transmitted reference range : 9.8 - 12.0 seconds. The reference range was not used to interpret this result as normal/abnormal . INR (test code = 0.96 See_Comment [Automated 6301-6) message] The system which generated this result transmitted reference range : <=5.90. The reference range was not used to interpret this result as normal/abnormal . HUNOG (test code = RECOMMENDED HUONG) COUMADIN/WARFARIN INR THERAPY RANGESSTANDARD DOSE: 2.0 - 3.0 Includes: PROPHYLAXIS for venous thrombosis, systemic embolization; TREATMENT for venous thrombosis and/or pulmonary embolus.HIGH RISK: Target INR is 2.5-3.5 for patients with mechanical heart valves. Lab Interpretation Normal (test code = 15788-3) [facility] HospitalPROTHROMBIN TIME/[id number] 10:00:00 Test Item Value Reference Range Interpretation Comments PROTIME (BEAKER) 9.9 seconds 9.8-12.0 (test code = 759) INR (BEAKER) (test 0.96 See_Comment [Automat ed message] code = 370) The system [employer] generated this result transmitted ref erence range: <=5.90. The reference range was not used to interpr et this result as normal/abnormal . RECOMMENDED COUMADIN/WARFARIN INR THERAPY RANGESSTANDARD DOSE: 2.0 - 3.0 Includes: PROPHYLAXIS forvenous thrombosis, systemic embolization; TREATMENT for venous thrombosis and/or pulmonary embolus.HIGH RISK: Target INR is 2.5-3.5 for patients with mechanical heart valves.Comprehensive metabolic [id number] 07:47:00 Test Item Value Reference Range Interpretation Comments Protein, Total (test 7.7 See_Comment [Autom ated code = 2885-2) message] The system which generated this result transmit rukhsana reference range : 6.0 - 8.3 gm/dL . The reference range was not u sed to interpret th is result as normal/abnormal . Albumin (test code = 4.3 g/dL 3.5-5 41097-2) Alkaline Phosphatase 106 U/L 40-150 (test code = 6768-6) Total Bilirubin (test 0.9 mg/dL 0.2-1.2 code = 1974-2) Sodium (test code = 136 meq/L 357-418 0736-2) Potassium (test code 3.8 meq/L 3.5-5.1 = 2823-3) Chloride (test code = 100 meq/L 98-107 5-0) CO2 (test code = 27 meq/L 22-29 2027-9) BUN (test code = 16 mg/dL 7-21 3094-0) Creatinine (test code 1.11 mg/dL 0.57-1.25 = 2160-0) Glucose (test code = 155 mg/dL 70-105 H 2345-7) Calcium (test code = 9.5 mg/dL 8.4-10.2 58176-8) AST (test code = 42 U/L 5-34 H 1920-8) ALT (test code = 29 U/L 6-55 1742-6) EGFR (test code = 65 mL/min/1.73 [place] [address]-5) NOT ACCURATE CREATININE CLEARANCE IN PREDICTING GLOMERULAR FILTRATION RATE . ESTIMATED GFR I S NOT APPLICABLE FOR DIALYSIS PATIEN TS. HUONG (test code = HUONG) Advice Nurse ID Juan Manuel Smith Lab Interpretation Abnormal (test code = 32379-4) [facility] HospitalCOMPREHENSIVE METABOLIC [id number] 07:47:00 Test Item Value Reference Range Interpretation Comments TOTAL PROTEIN 7.7 gm/dL 6.0-8.3 (BEAKER) (test code = 770) ALBUMIN (BEAKER) 4.3 g/dL 3.5-5.0 (test code = 1145) ALKALINE PHOSPHATASE 106 U/L 40-150 (BEAKER) (test code = 346) BILIRUBIN TOTAL 0.9 mg/dL 0.2-1.2 (BEAKER) (test code = 377) SODIUM (BEAKER) (test 136 meq/L 136-145 code = 381) POTASSIUM (BEAKER) 3.8 meq/L 3.5-5.1 (test code = 379) CHLORIDE (BEAKER) 100 meq/L 98-107 (test code = 382) CO2 (BEAKER) (test 27 meq/L 22-29 code = 355) BLOOD UREA NITROGEN 16 mg/dL 7-21 (BEAKER) (test code = 354) CREATININE (BEAKER) 1.11 mg/dL 0.57-1.25 (test code = 358) GLUCOSE RANDOM 155 mg/dL 70-105 H (BEAKER) (test code = 652) CALCIUM (BEAKER) 9.5 mg/dL 8.4-10.2 (test code = 697) AST (SGOT) (BEAKER) 42 U/L 5-34 H (test code = 353) ALT (SGPT) (BEAKER) 29 U/L 6-55 (test code = 347) EGFR (BEAKER) (test 65 mL/min/1.73 ESTIMA RUKHSANA GFR IS code = 1092) sq m NOT ACCURATE CREATININE CLEARANCE IN PREDICTING GLOMERULAR FILTRATION RATE . ESTIMATED GFR I S NOT APPLICABLE FOR DIALYSIS PATIEN TS. Advice Nurse ID - ALBINO [id number] 07:47:00 Test Item Value Reference Range Interpretation Comments MAGNESIUM (BEAKER) (test code = 2.2 mg/dL 1.6-2.6 627) Advice Nurse ID - ALBINO [id number] 07:47:00 Test Item Value Reference Range Interpretation Comments PHOSPHORUS (BEAKER) (test code = 2.3 mg/dL 2.3-4.7 604) Advice Nurse ID - ALBINO VARMAEPATIC FUNCTION [id number] 07:47:00 Test Item Value Reference Range Interpretation Comments TOTAL PROTEIN (BEAKER) (test code = 7.7 gm/dL 6.0-8.3 770) ALBUMIN (BEAKER) (test code = 1145) 4.3 g/dL 3.5-5.0 BILIRUBIN TOTAL (BEAKER) (test code 0.9 mg/dL 0.2-1.2 = 377) BILIRUBIN DIRECT (BEAKER) (test 0.5 mg/dL 0.1-0.5 code = 706) ALKALINE PHOSPHATASE (BEAKER) (test 106 U/L 40-150 code = 346) AST (SGOT) (BEAKER) (test code = 42 U/L 5-34 H 353) ALT (SGPT) (BEAKER) (test code = 29 U/L 6-55 347) Advice Nurse ID - ALBINO VARMAIGH SENSITIVITY TROPONIN [id number] 07:30:00 Test Item Value Reference Range Interpretation Comments HIGH SENSITIVITY 27 pg/ml See_Comment [Automated message] TROPONIN I (test code = The system which [id number]) generated this result transmitted ref erence range: <=35. Th e reference range was not used to int erpret this result as normal/abnormal . Advice Nurse ID - [facility]BINO [facility] TRANSFILL TECHNICIAN STAT High Sensitivity Troponin-I results should be used in conjunction with other diagnostic information such as ECG, clinical observations and information, and patient symptoms to aid in the diagnosis of NH.[id number] 07:13:00 Test Item Value Reference Range Interpretation Comments PTT (test code = 73982-0) 32.0 See_Comment [ Automated message] The system whic h generated this result transmitted ref erence range: 22.5 - 3 6.0 seconds. The re ference range was not u sed to interpret this result as normal/abnor mal. Lab Interpretation (test Normal code = 96939-0) [facility] 07:13:00 Test Item Value Reference Range Interpretation Comments PARTIAL THROMBOPLASTIN TIME 32.0 seconds 22.5-36.0 (BEAKER) (test code = 760) [id number] 07:12:00 Test Item Value Reference Range Interpretation Comments Fibrinogen (test code = 3255-7) 470 mg/dl 225-434 H Lab Interpretation (test code = Abnormal 82682-4) [facility]EN2021-[facility]-12 07:12:00 Test Item Value Reference Range Interpretation Comments FIBRINOGEN LEVEL (BEAKER) (test 470 mg/dl 225-434 H code = 658) CBC W/PLT COUNT & AUTO [id number] 07:11:00 Test Item Value Reference Range Interpretation Comments WHITE BLOOD CELL COUNT (BEAKER) 13.7 K/ L 3.5-10.5 H (test code = 775) RED BLOOD CELL COUNT (BEAKER) 4.26 M/ L 4.63-6.08 L (test code = 761) HEMOGLOBIN (BEAKER) (test code = 12.3 GM/DL 13.7-17.5 L 410) HEMATOCRIT (BEAKER) (test code = 39.6 % 40.1-51.0 L 411) MEAN CORPUSCULAR VOLUME (BEAKER) 93.0 fL 79.0-92.2 H (test code = 753) MEAN CORPUSCULAR HEMOGLOBIN 28.9 pg 25.7-32.2 (BEAKER) (test code = 751) MEAN CORPUSCULAR HEMOGLOBIN CONC 31.1 GM/DL 32.3-36.5 L (BEAKER) (test code = 752) RED CELL DISTRIBUTION WIDTH 23.4 % 11.6-14.4 H (BEAKER) (test code = 412) PLATELET COUNT (BEAKER) (test 400 K/CU MM 150-450 code = 756) MEAN PLATELET VOLUME (BEAKER) 8.7 fL 9.4-12.4 L (test code = 754) NUCLEATED RED BLOOD CELLS 0 /100 WBC 0-0 (BEAKER) (test code = 413) NEUTROPHILS RELATIVE PERCENT 82 % (BEAKER) (test code = 429) LYMPHOCYTES RELATIVE PERCENT 8 % (BEAKER) (test code = 430) MONOCYTES RELATIVE PERCENT 6 % (BEAKER) (test code = 431) EOSINOPHILS RELATIVE PERCENT 2 % (BEAKER) (test code = 432) BASOPHILS RELATIVE PERCENT 1 % (BEAKER) (test code = 437) NEUTROPHILS ABSOLUTE COUNT 11.23 K/ L 1.78-5.38 H (BEAKER) (test code = 670) LYMPHOCYTES ABSOLUTE COUNT 1.12 K/ L 1.32-3.57 L (BEAKER) (test code = 414) MONOCYTES ABSOLUTE COUNT (BEAKER) 0.83 K/ L 0.30-0.82 H (test code = 415) EOSINOPHILS ABSOLUTE COUNT 0.22 K/ L 0.04-0.54 (BEAKER) (test code = 416) BASOPHILS ABSOLUTE COUNT (BEAKER) 0.14 K/ L 0.01-0.08 H (test code = 417) IMMATURE GRANULOCYTES-RELATIVE 1 % 0-1 PERCENT (BEAKER) (test code = 2801) POCT-GLUCOSE [id number] 07:02:00 Test Item Value Reference Range Interpretation Comments POC-GLUCOSE METER 151 mg/dL 70-110 H : TESTED A T [facility] 6720 ([facility]) (test code = [facility], 1538) 13131: Advice Nurse/Techni michael ID = [id number] for JENNIFER CRAFT [id number] 00:00:00Ordered by an unspecified provider.[facility] HospitalPO[facility]UCOSE [id number] 06:48:00 Test Item Value Reference Range Interpretation Comments POC-GLUCOSE METER 156 mg/dL 70-110 H : TESTED A T [facility] 6720 (BEAKER) (test code = [facility], 1538) 25410: Advice Nurse/Techni michael ID = [id number] for KLEVER CAMARA Vitamin D, 00-[id number] 20:23:00 Test Item Value Reference Range Interpretation Comments Vitamin D 25-Hydroxy 51.9 ng/mL 6.6-49.9 H (test code = 2764) HUONG (test code = HUONG) Effective 02/12/2017: Reference Range ChangeNew: 6.6-49.9 ng/mL Previous: 13.0-47.8 ng/mL Recommended Vitamin D Target Range: 30.0-40.0 ng/mLOperator ID - DB Lab Interpretation (test Abnormal code = 52229-9) [facility] HospitalVITAMIN D, 74-[id number] 20:23:00 Test Item Value Reference Range Interpretation Comments VITAMIN D 25-OH (BEAKER) (test 51.9 ng/mL 6.6-49.9 H code = 2764) Effective 02/12/2017: Reference Range ChangeNew: 6.6-49.9 ng/mL Previous: 13.0-47.8 ng/mLRecommended Vitamin D Target Range: 30.0-40.0 ng/mLOperator ID - DBVitamin B12 and Fzcair3107-45-37 19:35:00 Test Item Value Reference Range Interpretation Comments Vitamin B12 (test 1504 pg/mL 213-816 H code = 2132-9) Folate (test code = 19.30 ng/mL See_Comment [Automa rukhsana 2284-8) message] The system which generated this result transmitted reference range : >=7.00. The reference range was not used to interpret this result as normal/abnormal . HUONG (test code = Advice Nurse ID - HUONG) EDASIOperator ID - BRANDON C Lab Interpretation Abnormal (test code = 52509-7) [facility] HospitalFerritin2021-03-05 19:35:00 Test Item Value Reference Range Interpretation Comments Ferritin (test code = 135.65 ng/mL 5-275 2276-4) HUONG (test code = HUONG) Advice Nurse ID - BRANDON C Lab Interpretation (test Normal code = 79234-5) [facility] HospitalFERRITIN2021-03-05 19:35:00 Test Item Value Reference Range Interpretation Comments FERRITIN (BEAKER) (test code = 135.65 ng/mL 5.00-275.00 361) Advice Nurse ID - BRANDON CVITAMIN B12 AND [id number] 19:35:00 Test Item Value Reference Range Interpretation Comments VITAMIN B12 1504 pg/mL 213-816 H (BEAKER) (test code = 774) FOLATE (BEAKER) 19.30 ng/mL See_Comment [Automated message] (test code = 362) The system which generated this result transmitted ref erence range: >=7.00. The reference range was not used to interpr et this result as normal/abnormal . Advice Nurse ID - EDASIOperator ID - BRANDON CPOCT-GLUCOSE [id number] 12:22:00 Test Item Value Reference Range Interpretation Comments POC-GLUCOSE METER 181 mg/dL 70-110 H : TESTED A T [facility] 6720 (BEAKER) (test code [facility], = 1538) 71934: Advice Nurse/Techni michael ID = [id number] for FARHANA GARCIA POCT-GLUCOSE [id number] 07:53:00 Test Item Value Reference Range Interpretation Comments POC-GLUCOSE METER 119 mg/dL 70-110 H : TESTED A T [facility] 6720 (BEAKER) (test code [facility], = 1538) 03464: Advice Nurse/Techni michael ID = [id number] for FARHANA GARCIA BASIC METABOLIC [id number] 07:20:00 Test Item Value Reference Range Interpretation [...] S NOT APPLICABLE FOR DIALYSIS PATIEN TS. Advice Nurse ID - SUABKVAWZOMNPG3830-71-27 07:20:00 Test Item Value Reference Range Interpretation Comments MAGNESIUM (BEAKER) (test code = 2.2 mg/dL 1.6-2.6 627) Advice Nurse ID - PYPEEPTJYFDWHVU6586-65-61 07:20:00 Test Item Value Reference Range Interpretation Comments PHOSPHORUS (BEAKER) (test code = 4.0 mg/dL 2.3-4.7 604) Advice Nurse ID - EDASIIron, TIBC, % sat. (without ferritin)2020-07-07 06:52:00 Test Item Value Reference Range Interpretation Comments Iron (test code = 2498-4) 75.0 ug/dL 40-160 TIBC (test code = 2500-7) 261 ug/dL 250-450 Iron % Saturation (test 29 % 20-55 code = 2502-3) HUONG (test code = HUONG) Advice Nurse ID - EDASI Lab Interpretation (test Normal code = 95223-0) [facility] HospitalIRON, TIBC, % SAT. (WITHOUT FERRITIN)2020-07-07 06:52:00 Test Item Value Reference Range Interpretation Comments IRON (BEAKER) (test code = 547) 75.0 ug/dL 40.0-160.0 TOTAL IRON BINDING CAPACITY 261 ug/dL 250-450 (BEAKER) (test code = 769) IRON % SATURATION (2) (BEAKER) 29 % 20-55 (test code = 2590) Advice Nurse ID - EDASICBC W/PLT COUNT & AUTO [id number] 06:47:00 Test Item Value Reference Range Interpretation [...] PERCENT (BEAKER) (test code = 2801) POCT-GLUCOSE [id number] 11:33:00 Test Item Value Reference Range Interpretation Comments POC-GLUCOSE METER 135 mg/dL 70-110 H : TESTED A T [facility] 6720 (BEAKER) (test code = SHER Estevez [facility], 1538) 79375: Advice Nurse/Techni michael ID = [id number] for [facility] CT, BRAIN, WITHOUT [id number] 09:48:00Unlisted Reason for Exam - Click Yes and Enter Reason Below->YesUnlisted Reason for Exam->[facility] : 1945 Sex: MFINAL REPORT [...] leftward midline shift has decreased. Signed: Case Yateseport Verified Date/Time: 07/06/2020 09:48:25 Reading Location: [address] Neuro Reading Room POCT-GLUCOSE [id number] 06:37:00 Test Item Value Reference Range Interpretation Comments POC-GLUCOSE METER 137 mg/dL 70-110 H : TESTED A T [facility] 6720 (BEAKER) (test code = [place]ER Este[place] [facility], 1538) 99433: Advice Nurse/Techni michael ID = [id number] for ELYSE MARLOW BASIC METABOLIC [id number] 04:16:00 Test Item Value Reference Range Interpretation [...] S NOT APPLICABLE FOR DIALYSIS PATIEN TS. Advice Nurse ID - ALBINO [id number] 04:16:00 Test Item Value Reference Range Interpretation Comments MAGNESIUM (BEAKER) (test code = 2.0 mg/dL 1.6-2.6 627) Advice Nurse ID - ALBINO [id number] 04:16:00 Test Item Value Reference Range Interpretation Comments PHOSPHORUS (BEAKER) (test code = 2.6 mg/dL 2.3-4.7 604) Advice Nurse ID - ALBINO MCBC W/PLT COUNT & AUTO [id number] 03:46:00 Test Item Value Reference Range Interpretation [...] EOSINOPHILS ABSOLUTE COUNT 0.43 K/ L 0.04-0.54 (BEAKER) (test code = 416) BASOPHILS ABSOLUTE COUNT (BEAKER) 0.21 K/ L 0.01-0.08 H (test code = 417) IMMATURE GRANULOCYTES-RELATIVE 2 % 0-1 H PERCENT (BEAKER) (test code = 2801) POCT-GLUCOSE [id number] 00:34:00 Test Item Value Reference Range Interpretation Comments POC-GLUCOSE METER 115 mg/dL 70-110 H : TESTED A T [facility] 6720 (BEAKER) (test code = [facility], 1538) 94323: Advice Nurse/Techni michael ID = [id number] for Maryan Mcfarlane POCT-GLUCOSE [id number] 17:25:00 Test Item Value Reference Range Interpretation Comments POC-GLUCOSE METER 111 mg/dL 70-110 H : TESTED A T [facility] 6720 (BEAKER) (test code = [facility], 1538) 84202: Advice Nurse/Techni michael ID = [id number] for [facility] POCT-GLUCOSE [id number] 12:32:00 Test Item Value Reference Range Interpretation Comments POC-GLUCOSE METER 157 mg/dL 70-110 H : Notified RN/MD: (MIRIAN) (test code = TESTED AT [facility] 5840 5132) [facility], [address]: Advice Nurse/Techni michael ID = [id number] for Dolly Lopez Troponin [id number] 07:49:00 Test Item Value Reference Range Interpretation Comments Troponin I (test code = 0.01 ng/mL 0-0.03 61936-9) HUONG (test code = HUONG) Troponin I [...] ROSIANG Lab Interpretation (test Normal code = 28009-1) [facility] HospitalTROPONIN [id number] 07:49:00 Test Item Value Reference Range Interpretation [...] failure, acidosis, acute neurological disease, and persistent tachyarrhythmia.Advice Nurse ID - ROSIANGBASIC METABOLIC [id number] 03:30:00 Test Item Value Reference Range Interpretation [...] S NOT APPLICABLE FOR DIALYSIS PATIEN TS. Advice Nurse ID - ALBINO [id number] 03:30:00 Test Item Value Reference Range Interpretation Comments MAGNESIUM (BEAKER) (test code = 2.1 mg/dL 1.6-2.6 627) Advice Nurse ID - ALBINO [id number] 03:30:00 Test Item Value Reference Range Interpretation Comments PHOSPHORUS (BEAKER) (test code = 2.3 mg/dL 2.3-4.7 604) Advice Nurse ID - ALBINO MCBC W/PLT COUNT & AUTO [id number] 03:20:00 Test Item Value Reference Range Interpretation [...] PERCENT (BEAKER) (test code = 2801) POCT-GLUCOSE [id number] 00:09:00 Test Item Value Reference Range Interpretation Comments POC-GLUCOSE METER 108 mg/dL 70-110 : TESTED A T [facility] 6720 (BEAKER) (test code = [facility], 1538) 14336: Advice Nurse/Techni michael ID = [id number] for ELYSE MARLOW POCT-GLUCOSE [id number] 17:45:00 Test Item Value Reference Range Interpretation Comments POC-GLUCOSE METER 108 mg/dL 70-110 : TESTED A T [facility] 6720 (BEAKER) (test code = [facility], 1538) 63309: Advice Nurse/Techni michael ID = [id number] for MIRLANDE LópezJACKIE FRANKLINCALIXTOSiria 2D Echo W/Doppler(CW/PW/Color)2020-07-04 13:10:15Ejection FractionSLEH ECHO HEARTLAB MKCKESSON CPACSInterface, External Ris In - 07/04/2020 1:10 PM C STTransthoracic Echocardiography Report (TTE) Demographics Patient Name DARYA TADEO Date of Study 07/04/2020 NIRAV MALIN Gender Male Visit Number [id number] Race Unknown Room Number 7512 Number Date of 1945 Referring PILAR Leon Physician MIMA Age 75 year(s) Dental Laboratory Assistant Tamara Altman [facility] Rail Splitter Jessica Goodman [facility] Interpreting Rachelle Huddleston MD Physician Procedure Type [...] 24.57 mmHg Pulmonic Valve EstimatedPASP: 34.57 mmHg [facility] METABOLIC [id number] 11:59:00 Test Item Value Reference Range Interpretation [...] S NOT APPLICABLE FOR DIALYSIS PATIEN TS. Advice Nurse ID - SMPOCT-GLUCOSE [id number] 11:46:00 Test Item Value Reference Range Interpretation Comments POC-GLUCOSE METER 149 mg/dL 70-110 H : TESTED A T [facility] 6720 (BEAKER) (test code = [place], 1538) [address]: Advice Nurse/Techni michael ID = [id number] for Irene Lopez Hemoglobin and ixacbkbdom6029-00-75 11:37:00 Test Item Value Reference Range Interpretation [...] = 4544-3) HUONG (test code = HUONG) Advice Nurse ID - [id number] Lab Interpretation Abnormal (test code = 24593-4) [facility] HospitalHEMOGLOBIN AND [id number] 11:37:00 Test Item Value Reference Range Interpretation Comments HEMOGLOBIN (BEAKER) (test code = 9.2 GM/DL 13.7-17.5 L 410) HEMATOCRIT (BEAKER) (test code = 29.3 % 40.1-51.0 L 411) Advice Nurse ID - [id number] Kinase (CK)2020-07-04 10:38:00 Test Item Value Reference Range Interpretation Comments Total CK (test code = 71 U/L 29-200 2157-6) HUONG (test code = HUONG) Advice Nurse ID - ALBINO M Lab Interpretation (test Normal code = 07407-3) [facility] HospitalCREATINE KINASE (CK)2020-07-04 10:38:00 Test Item Value Reference Range Interpretation Comments CREATINE KINASE TOTAL (BEAKER) (test 71 U/L 29-200 code = 380) Advice Nurse ID - ALBINO MPOCT-GLUCOSE [id number] 08:00:00 Test Item Value Reference Range Interpretation Comments POC-GLUCOSE METER 105 mg/dL 70-110 : [facility] (BEAKER[facility] (test code = [place], 1538) [address]: Advice Nurse/Techni michael ID = [id number] for LL OYD, JACKIEKEYA BASIC METABOLIC [id number] 03:45:00 Test Item Value Reference Range Interpretation [...] S NOT APPLICABLE FOR DIALYSIS PATIEN TS. Advice Nurse ID - [id number] 03:45:00 Test Item Value Reference Range Interpretation Comments MAGNESIUM (BEAKER) (test code = 2.1 mg/dL 1.6-2.6 627) Advice Nurse ID - [id number] 03:45:00 Test Item Value Reference Range Interpretation Comments PHOSPHORUS (BEAKER) (test code = 2.9 mg/dL 2.3-4.7 604) Advice Nurse ID - SMPROTHROMBIN TIME/[id number] 03:37:00 Test Item Value Reference Range Interpretation Comments PROTIME (BEAKER) 14.7 seconds 11.9-14.2 H (test code = 759) INR (BEAKER) (test 1.18 See_Comment [Automat ed message] code = 370) The system [employer] generated this result transmitted ref erence range: <=5.90. The reference range was not used to int erpret this result as normal/abnormal . Effective 09/30/2018: PT Reference Range ChangeNew: 11.9-14.2 Previous: 11.7- 14.7RECOMMENDED COUMADIN/WARFARIN INR THERAPY RANGESSTANDARD DOSE: 2.0-3.0 Includes: PROPHYLAXIS for venous thrombosis, systemic embolization; TREATMENT for venous thrombosis and/or pulmonary embolus.HIGH RISK: Target INR is2.5-3.5 for patients wiht mechanical heart valves.[id number] 03:37:00 Test Item Value Reference Range Interpretation Comments PARTIAL THROMBOPLASTIN TIME 31.1 seconds 22.5-36.0 (BEAKER) (test code = 760) CBC W/PLT COUNT & AUTO [id number] 03:34:00 Test Item Value Reference Range Interpretation [...] (BEAKER) (test code = 2801) Prepare Leuko-Red [id number] 23:54:00 Test Item Value Reference Range Interpretation Comments Unit ABO (test code = 5063573) B Pos UNIT NUMBER (test code = [id number] 934-0) Status (test code = 4976722) TX_TIMEINCHART Blood Bank Product (test code PLATELETS = 2263) PRODUCT CODE (test code = P3847E40 933-2) [facility] HospitalHEMOGLOBIN AND [id number] 21:51:00 Test Item Value Reference Range Interpretation Comments HEMOGLOBIN (BEAKER) (test code = 9.1 GM/DL 13.7-17.5 L 410) HEMATOCRIT (BEAKER) (test code = 28.6 % 40.1-51.0 L 411) Advice Nurse ID - [id number]-GLUCOSE [id number] 21:44:00 Test Item Value Reference Range Interpretation Comments POC-GLUCOSE METER 158 mg/dL 70-110 H : TESTED A T [facility] 6720 (BEAKER) (test code = [place], 1538) [address]: Advice Nurse/Techni michael ID = [id number] for MARY MARLOWISHA POCT-GLUCOSE [id number] 16:56:00 Test Item Value Reference Range Interpretation Comments POC-GLUCOSE METER 144 mg/dL 70-110 H : Notified RN/MD: (MIRIAN) (test code = TESTED AT [facility] 6783 1538) DENISE [facility], [address]: Advice Nurse/Techni michael ID = [id number] for ISMAEL GRAMAJO Thromboelastograph (TEG)2020-07-03 13:35:00 Test Item Value Reference Range Interpretation Comments TEG Activated Clotting 2.6 See_Comment L [Aut omated message] Time (test code = The system which 87260-9) generated this result transmitted ref erence range: 4.0 - 7. 0 minutes. The reference range was not used to int erpret this result as normal/abnormal . TEG Fibrinogen Activity 80.7 See_Comment H [Au tomated message] (test code = 72624-2) The sy stem which generated this result transmitted ref erence range: 61.0 - 7 3.0 degrees. The reference range was not used to int erpret this result as normal/abnormal . TEG Platelet Aggregation 72.6 See_Comment H [A utomated message] (test code = 57209-8) The sy stem which generated this result transmitted ref erence range: 55.0 - 6 5.0 MM. The referen ce range was not u sed to interpret this result as normal/abnor mal. TEG Fibrinolysis (test 0.0 % 0-5 code = 12577-8) TEG-H Activated Clotting 2.7 See_Comment L [A [...] 1414) Lab Interpretation (test Abnormal code = 02412-1) [facility] HospitalTHROMBOELASTOGRAPH (TEG)2020-07-03 13:35:00 Test Item Value Reference Range [...] 0.0-5.0 code = 1414) CT, BRAIN, WITHOUT [id number] 08:29:00Unlisted Reason for Exam - Click Yes and Enter Reason Below->No [facility] : 1945 Sex: MFINAL REPORT [...] neurologist at the timeof dictation. Signed: Case Yates MDReport Verified Date/Time: 07/03/2020 08:29:18 Reading Location: [address] Neuro Reading Room Electronically signed by: CASE YATES M.D. on 108:29 AMHEMOGLOBIN [id number] 08:21:00 Test Item Value Reference Range Interpretation Comments HEMOGLOBIN A1C (BEAKER) (test code = 5.7 % 4.3-6.1 368) [id number] 07:19:00 Test Item Value Reference Range Interpretation Comments MAGNESIUM (BEAKER) 2.3 mg/dL 1.6-2.6 Specimen slightly (test code = 627) hemolyzed Advice Nurse ID - ALBINO [id number] 07:19:00 Test Item Value Reference Range Interpretation Comments PHOSPHORUS (BEAKER) 2.2 mg/dL 2.3-4.7 L Specimen slightly (test code = 604) hemolyzed Advice Nurse ID - ALBINO MBASIC METABOLIC [id number] 05:56:00 Test Item Value Reference Range Interpretation [...] S NOT APPLICABLE FOR DIALYSIS PATIEN TS. Advice Nurse ID - ALBINO MCBC W/PLT COUNT & AUTO [id number] 05:06:00 Test Item Value Reference Range Interpretation [...] (test code = 2801) TSH/Free T4 If [id number] 04:35:00 Test Item Value Reference Range Interpretation Comments TSH (test code = 0.793 See_Comment [Automated 21664-0) message] The system which generated this result transmit rukhsana reference range : 0.350 - 4.940 uIU/mL. The reference range was not used to interpret this result as normal/abnormal . HUONG (test code = HUONG) Advice Nurse ID - ALBINO M Lab Interpretation Normal (test code = 20322-6) [facility] HospitalTSH/FREE T4 IF [id number] 04:35:00 Test Item Value Reference Range Interpretation Comments THYROID STIMULATING HORMONE 0.793 uIU/mL 0.350-4.940 (BEAKER) (test code = 772) Advice Nurse RENA POSADA MBASIC METABOLIC [id number] 04:21:00 Test Item Value Reference Range Interpretation [...] S NOT APPLICABLE FOR DIALYSIS PATIEN TS. Advice Nurse RENA Juan Manuel ALBINO MLipid [id number] 04:19:00 Test Item Value Reference Range Interpretation Comments Triglycerides (test 73 mg/dL code = 2571-8) Cholesterol (test code 70 mg/dL = 2093-3) HDL (test code = 20 mg/dL 5-9) LDL Calculated (test 35 mg/dL code = 95981-9) HUONG (test code = HUONG) Triglyceride Reference Range: Low Risk <150 Borderline 150-199 High Risk 200-499 Very High Risk >=500 Cholesterol Reference Range: Low Risk <200 Borderline 200-239 High Risk >240 HDL Cholesterol Reference Range: Low Risk >=60 High Risk <40 LDL Cholesterol Reference Range: Optimal <100 Near Optimal 100-129 Borderline 130-159 High 160-189 Very High >=190 Advice Nurse RENA Smith [facility] HospitalMAGNESIUM2021-03-01 04:19:00 Test Item Value Reference Range Interpretation Comments MAGNESIUM (BEAKER) (test code = 1.4 mg/dL 1.6-2.6 L 627) Advice Nurse RENA POSADA MLIPID [id number] 04:19:00 Test Item Value Reference Range Interpretation [...] Borderline 130-159 High 160-189 Very High >=190 Advice Nurse ID - ALBINO [id number] 04:19:00 Test Item Value Reference Range Interpretation Comments LIPASE (BEAKER) (test code = 749) 5 U/L 8-78 L Advice Nurse ID - ALBINO MSARS-COV2/RT-PCR ([facility])2020-07-03 01:30:00 Test Item Value Reference Range Interpretation Comments SARS-COV2/RT-PCR (test code Negative Not Detected, Negative, = 1373970) See external report for linked test SARS-COV-2 PERFORMING LAB [facility] (test code = 0393513) Negative results do not preclude SARS-CoV-2 infection [...] of the Act.Fact Sheet for Healthcare Pro viders:https://www.[employer]Documents/Xpert%20Xpress%20SARS%20CoV-2/Fact%20Sh eets/302-3802%84KAJD-QNB-4%20HEALTHCARE%20PROVIDERS%20FACT%20SHEET.pdfFact Sheet for Healthcare Patients:https://www.[employer]Documents/Xpert%20Xpress%20SARS%20CoV-2/Fact%20Sheets/302-3801%20SARS-COV -2%20PATIENT%20FACT%20SHEET.pdfPerforming Laboratory:[facility], [place] [address]VOS, CHEST, 1 VIEW, NON [id number] 23:20:00Reason for exam:->preopShould this be performed at the bedside?->Yes[facility] : 1945 Sex: MFINAL REPORT [...] Impression: No focal pulmonary consolidation. Signed: Aly Ibarraeport Verified Date/Time: 07/02/2020 23:20:48 Type and screen, [id number] 22:33:00 Test Item Value Reference Range Interpretation Comments ABO/RH AUTOMATED (BEAKER) (test O POSITIVE code = 2260) Ab Scrn (test code = 890-4) NEGATIVE [facility] (BNP)2020-07-02 22:22:00 Test Item Value Reference Range Interpretation Comments BNP (test code = 67816-2) 799 pg/mL 0-100 H HUONG (test code = HUONG) Advice Nurse ID - DB Lab Interpretation (test Abnormal code = 62375-6) [facility]NP[facility]2020-07-02 22:22:00 Test Item Value Reference Range Interpretation Comments B-TYPE NATRIURETIC PEPTIDE (BEAKER) 799 pg/mL 0-100 H (test code = 700) Advice Nurse ID - DBABORH, [id number] 22:20:00 Test Item Value Reference Range Interpretation Comments ABO Grouping (test code = 2588) O Rh Factor (test code = 2589) POS [facility] [id number] 22:15:00 Test Item Value Reference Range Interpretation [...] S NOT APPLICABLE FOR DIALYSIS PATIEN TS. Advice Nurse ID - [id number] 22:12:00 Test Item Value Reference Range Interpretation Comments PARTIAL THROMBOPLASTIN TIME 32.6 seconds 22.5-36.0 (BEAKER) (test code = 760) [id number] 22:12:00 Test Item Value Reference Range Interpretation Comments FIBRINOGEN LEVEL (BEAKER) (test 286 mg/dl 225-434 code = 658) PROTHROMBIN [id number] 22:11:00 Test Item Value Reference Range Interpretation Comments PROTIME (BEAKER) 14.8 seconds 11.9-14.2 H (test code = 759) INR (BEAKER) (test 1.20 See_Comment [Automat ed message] code = 370) The system [employer] generated this result transmitted ref erence range: [...] mechanical heart valves.CBC W/PLT COUNT & AUTO [id number] 22:03:00 Test Item Value Reference Range Interpretation [...] PERCENT (BEAKER) (test code = 2801) TROPONIN [id number] 21:54:00 Test Item Value Reference Range Interpretation [...] failure, acidosis, acute neurological disease, and persistent tachyarrhythmia.Advice Nurse ID - DBCOMPREHENSIVE METABOLIC [id number] 21:48:00 Test Item Value Reference Range Interpretation [...] S NOT APPLICABLE FOR DIALYSIS PATIEN TS. Advice Nurse ID - [id number] 21:48:00 Test Item Value Reference Range Interpretation Comments MAGNESIUM (BEAKER) (test code = 2.1 mg/dL 1.6-2.6 627) Advice Nurse ID - [id number] 21:48:00 Test Item Value Reference Range Interpretation Comments PHOSPHORUS (BEAKER) (test code = 2.7 mg/dL 2.3-4.7 604) Advice Nurse ID - DBCBC W/PLT COUNT & AUTO [id number] 21:32:00 Test Item Value Reference Range Interpretation [...]
[2020-11-11] MEDS ORDERED: NA CHLORIDE 0.9% 2,000 ML ONE (15:08)
[2020-11-11 15:10] LABS: Absolute Lymphocytes (CBC) 1.3 K/uL (0.7-4.9); Basophils % 0.4 % (0-1.3); Hematocrit 29.7 % (39.6-49.0); Lymphocytes % 10.1 % (15.3-44.8); MPV 7.6 fL (7.6-11.3); RBC Red Blood Cell Count 3.32 M/uL (4.33-5.43)
[2020-11-11 15:13] LABS: Protime INR 1.36
[2020-11-11 15:25] LABS: Albumin 2.7 g/dL (3.4-5.0); Bilirubin Direct 0.5 mg/dL (0-0.2); Potassium 4.6 mmol/L (3.5-5.1); Protein, Total 6.9 g/dL (6.4-8.2); Troponin (Emerg Dept Use Only) 0.06 ng/mL (0.0-0.045)
--- NOTE | 2020-11-11 15:31 | RAD REPORT ---
EXAM DESCRIPTION: RAD - Chest Single View - 11/11/2020 3:04 pm CLINICAL HISTORY: DYSPNEA COMPARISON: July 02 portable, lung base images CT abdomen October 13 TECHNIQUE: AP portable chest image was obtained 11/11/2020 3:04 pm . FINDINGS: Pleural and parenchymal opacification is present in the right base. This is not substantia lly different from the CT study. The right lung base findings were not present in June. Left lung field is clear. Heart and vasculature are normal. No pneumothorax. No acute bony abnormality seen. N o acute aortic findings suspected. IMPRESSION: Right base pleural and parenchymal opacification similar to the October 13 CT study but new from June. Findings could be remnant or recurrent right lung base pneumonia. No significant failure or volume overload findings.
[2020-11-11] MEDS ORDERED: CEFEPIME/SWI 1gm 10 ML ONE (15:50)
[2020-11-11] MEDS ORDERED: VANCOMYCIN/NS 1 gm 1 GM/250 ML BAG IVPB ONE (16:00)
--- NOTE | 2020-11-11 16:17 | RAD REPORT ---
EXAM DESCRIPTION: CT - Abdomen Pelvis Wo Contrast - 11/11/2020 3:58 pm CLINICAL HISTORY: ABD PAIN Percutaneous cholecystostomy 1 month earlier, swelling and redness a treated site COMPARISON: Abdomen Pelvis W Contrast dated 10/13/2020 TECHNIQUE: Axial [address] imaging of the abdomen and pelvis was performed without IV contrast. No IV contrast was given because of allergy, abnormal renal function, patient refusal or physician re quest. No oral contrast was administered. All CT scans are performed using dose optimization technique as appropriate and may include automated exposure control or mA/KV adjustment according to patient size. FINDINGS: Moderately large right pleural effusion is present only partially imaged. There is lobulat ion to the contour of the pleural fluid loculation is suspected. Atelectasis changes are present in t he right base potentially masking infiltrate. No air within the pleural fluid. Minimal atelectasis se en in the left base. No pericardial effusion. No suspicious liver finding on noncontrast imaging. Hepatomegaly is present with a 24 centimeter cran iocaudal maximum dimension. Spleen and pancreas are unremarkable. No abnormal biliary tree dilatation . Percutaneous cholecystostomy tube is in place. Air-fluid level is present in the gallbladder lumen. Introduction of air via the tube is not uncommon. No abscess or drainable fluid collection identifiab le. No hydronephrosis or suspicious renal mass. No significant adrenal finding. Isodense renal masses an d pyelonephritis cannot be excluded in the absence of IV contrast. The urinary bladder is without sig nificant finding. Moderate stool volume present in the colon. No suspicion for appendicitis. No active colon process se en. No peritoneal free air or pneumatosis. No mass or bulky lymphadenopathy. Small fat only inguinal hernias are present extending a few cm into each inguinal canal. Disc and bone degenerative changes are present. No pathologic bone process. IMPRESSION: Percutaneous cholecystostomy tube is well positioned within the lumen of the gallbladder . Air-fluid level in the gallbladder lumen is not unexpected. No biliary tree abnormality. No abscess or drainable fluid collection along the course of the drain tube. Patient has a moderately large loculated pleural effusion with no air in the fluid. There is atelecta sis at the right base. Right lower lobe pneumonia changes cannot be excluded. The possibility of empyema is not entirely excluded. The patient could potentially have a very low ri ght lateral pleural reflection that could of been crossed by the drain tube. Hepatomegaly.
[2020-11-11 17:05] LABS: Anisocytosis 2+; Blood Morphology Comment NOTED (NOT SEEN); Hypochromasia 1+; Ovalocytes 2+; Platelet Estimate INCR; Poikilocytosis 2+; Polychromasia SLIGHT; Teardrop Cell FEW; White Blood Cell Scan OK (OK)
--- NOTE | 2020-11-11 17:29 | EDPHYS ---
Physician Documentation [facility] Name: Farhat Burch Sr Age: 75 yrs Sex: Male : 1945 Arrival Date: 11/11/2020 Time: 14:05 Bed 5 Private MD: ED Physician Kenenth Leos HPI: 11/11 15:13 This 75 yrs old Male presents to ER via EMS with complaints of fever, not jr8 feeling well. 15:13 The patient reports fever, with an emergency department temperature of 100.7 degrees jr8 Fahrenheit. Onset: The symptoms/episode began/occurred gradually, 3 day(s) ago. Modifying factors: there are no obvious modifying factors. Associated signs and symptoms: Pertinent positives: abdominal pain. Severity of symptoms: At their worst the symptoms were moderate in the emergency department the symptoms are unchanged. The patient has not experienced similar symptoms in the past. The patient has not recently seen a physician. 15:15 Patient stated that for the past few days has not felt. Well. Today EMS was called. jr8 Shown to have fever of 100.7. Stated that he had a cholecystostomy drain put in last month. Becoming pain around outside of skin. Has not followed up with his surgeon thus far. Historical: - Allergies: 14:20 No Known Drug Allergies; jl7 - PMHx: 14:20 Hypertension; resolved; Anemia; Anxiety; neely esophagus; COPD; Depression; Diabetes jl7 - IDDM; Hyperlipidemia; - Immunization history:: Adult Immunizations unknown. - Social history:: Smoking status: Patient reports the use of cigarette tobacco products, smokes one pack cigarettes per day. ROS: 15:15 Eyes: Negative for injury, pain, redness, and discharge, ENT: Negative for injury, jr8 pain, and discharge, Neck: Negative for injury, pain, and swelling, Cardiovascular: Negative for chest pain, palpitations, and edema, Respiratory: Negative for shortness of breath, cough, wheezing, and pleuritic chest pain, Abdomen/GI: Negative for abdominal pain, nausea, vomiting, diarrhea, and constipation, Back: Negative for injury and pain, MS/Extremity: Negative for injury and deformity, Neuro: Negative for headache, weakness, numbness, tingling, and seizure. 15:15 Constitutional: Positive for fatigue, fever, malaise. 15:15 Skin: Positive for erythema, of the anterior aspect of right lateral abdomen. Exam: 16:28 Constitutional: This is a well developed, well nourished patient who is awake, alert, jr8 and in no acute distress. Eyes: Pupils equal round and reactive to light, extra-ocular motions intact. Lids and lashes normal. Conjunctiva and sclera are non-icteric and not injected. Cornea within normal limits. Periorbital areas with no swelling, redness, or edema. ENT: Nares patent. No nasal discharge, no septal abnormalities noted. Tympanic membranes are normal and external auditory canals are clear. Oropharynx with no redness, swelling, or masses, exudates, or evidence of obstruction, uvula midline. Mucous membranes moist. Neck: Trachea midline, no thyromegaly or masses palpated, and no cervical lymphadenopathy. Supple, full range of motion without nuchal rigidity, or vertebral point tenderness. No Meningismus. Abdomen/GI: Soft, non-tender, with normal bowel sounds. No distension or tympany. No guarding or rebound. No evidence of tenderness throughout. Cholecystostomy drain noted. Mild erythem and tenderness noted around site. No flucutance or drainage appreciated Back: No spinal tenderness. No costovertebral tenderness. Full range of motion. Skin: Warm, dry with normal turgor. Normal color with no rashes, no lesions, and no evidence of cellulitis. MS/ Extremity: Pulses equal, no cyanosis. Neurovascular intact. Full, normal range of motion. Neuro: Awake and alert, GCS 15, oriented to person, place, time, and situation. Cranial nerves II-XII grossly intact. Motor strength 5/5 in all extremities. Sensory grossly intact. 16:28 Cardiovascular: Rate: tachycardic, Rhythm: regular, Pulses: Pulses are 2+ in right radial artery and left radial artery. Heart sounds: normal, normal S1and S2, no S3 or S4, no murmur, no rub, no gallop, Edema: is not appreciated, JVD: is not appreciated. 16:28 Respiratory: the patient does not display signs of respiratory distress, Respirations: tachypnea, that is mild, Breath sounds: decreased breath sounds, that are moderate, are heard in the right posterior middle lobe and right posterior lower lobe. Vital Signs: 14:15 BP 106 / 62; Pulse 108; Resp 22; Pulse Ox 97% on 2 lpm NC; Pain 7/10; ap3 14:16 BP 106 / 58; Pulse 110; Resp 15; Temp 100.7; Pulse Ox 97% ; jl7 14:45 Weight 70.31 kg (R); ap3 15:25 Temp 98.7(O); ae4 16:22 BP 105 / 58; Pulse 87; Resp 26; Pulse Ox 98% on 2 lpm NC; ap3 17:20 Pulse 89; Resp 26; Pulse Ox 94% on R/A; ae4 18:33 BP 128 / 67; Pulse 90; Resp 17; Pulse Ox 96% on 2 lpm NC; ap3 19:45 BP 166 / 95; Pulse 148; Resp 30; Temp 99.3; Pulse Ox 88% on 3 lpm NC; jb4 20:45 BP 93 / 57; Pulse 115; Resp 32; Pulse Ox 93% on 35% BiPAP; jb4 21:00 BP 102 / 57; Pulse 112; Resp 32; Pulse Ox 91% on 35% BiPAP; jb4 22:00 BP 104 / 64; Pulse 95; Resp 28; Pulse Ox 99% on 35% BiPAP; jb4 23:00 BP 116 / 66; Pulse 82; Resp 22; Pulse Ox 98% on 35% BiPAP; jb4 07 00:00 BP 62 / 55; Pulse 89; Resp 26; Pulse Ox 98% on 35% BiPAP; jb4 00:30 BP 95 / 61; Pulse 84; Resp 22; Pulse Ox 100% on 35% BiPAP; jb4 MDM: 11/11 14:06 Patient medically screened. tw4 17:26 Data reviewed: vital signs, nurses notes, lab test result(s), EKG, radiologic studies, jr8 CT scan, plain films. Data interpreted: Pulse oximetry: on 2L(s) per nasal canula, is 95 %. Interpretation: acceptable. Counseling: I had a detailed discussion with the patient and/or guardian regarding: the historical points, exam findings, and any diagnostic results supporting the discharge/admit diagnosis, lab results, radiology results, the need to transfer to another facility, [facility] does not immediately have the required specialist. 11/11 14:14 Order name: Basic Metabolic Panel jr8 11/11 14:14 Order name: Blood Culture Adult (2) jr8 11/11 14:14 Order name: CBC with Diff [facility] 11/11 14:14 Order name: LFT's; Complete Time: 15:29 [facility] 11/11 14:14 Order name: Lactate; Complete Time: 15:29 [facility] 11/11 14:14 Order name: Lipase; Complete Time: 15:29 [facility] 11/11 14:14 Order name: Procalcitonin; Complete Time: 16:03 [facility] 11/11 14:14 Order name: Protime (+inr); Complete Time: 15:29 [facility] 11/11 14:14 Order name: Ptt, Activated; Complete Time: 15:29 [facility] 11/11 14:14 Order name: Troponin (emerg Dept Use Only); Complete Time: 15:29 [facility] 11/11 14:14 Order name: Urine Microscopic Only [facility] 11/11 14:14 Order name: Basic Metabolic Panel; Complete Time: 15:29 [facility] 11/11 14:14 Order name: Blood Culture [facility] 11/11 14:14 Order name: Chest Single View XRAY; Complete Time: 15:34 [facility] 11/11 14:14 Order name: CBC with Automated Diff; Complete Time: 17:17 [facility] 11/11 15:42 Order name: Abdomen ; Complete Time: 16:19 [facility] 11/11 17:05 Order name: CBC Smear Scan; Complete Time: 17:17 [facility] 11/11 18:41 Order name: SARS-COV-2 RT PCR; Complete Time: 19:33 [facility] 11/11 20:01 Order name: Troponin I; Complete Time: 21:55 [facility] 11/11 20:27 Order name: ABG: verbal order per Dr. peterson; Complete Time: 21:55 1 11/11 22:19 Order name: Urine Dipstick-Ancillary [facility] 11/11 22:21 Order name: D-Dimer [facility] 11/11 22:21 Order name: Flu [facility] 11/11 22:21 Order name: RSV [facility] 11/11 22:22 Order name: D-Dimer [facility] 11/11 22:22 Order name: Influenza Screen (A [facility] 11/11 23:18 Order name: Urine Culture [facility] 11/11 14:14 Order name: Accucheck; Complete Time: 16:03 jr11/11 14:14 Order name: Cardiac monitoring; Complete Time: 14:19 11/11 14:14 Order name: EKG - Nurse/Tech; Complete Time: 15:06 11/11 14:14 Order name: IV Saline Lock - Large Bore; Complete Time: 14:45 11/11 14:14 Order name: Labs collected and sent; Complete Time: 14:45 11/11 14:14 Order name: O2 Per Protocol; Complete Time: 14:19 11/11 14:14 Order name: O2 Sat Monitoring; Complete Time: 14:19 11/11 14:14 Order name: Urine Dipstick-Ancillary (obtain specimen); Complete Time: 23:12 Administered Medications: 14:51 Drug: NS 0.9% (30 ml/kg) 30 ml/kg Route: IV; Rate: bolus; Site: left forearm; ap3 15:20 CANCELLED (Physician Discretion): Tylenol 1000 mg PO once jl7 15:30 Drug: Cefepime 1 grams Route: IVPB; Rate: 200 ml/hr; Infused Over: 30 mins; Site: right ae4 antecubital; 18:34 Follow up: IV Status: Completed infusion ap3 16:30 Drug: vancoMYCIN 1 grams Route: IVPB; Infused Over: 2 hrs; Site: right antecubital; ap3 18:34 Follow up: IV Status: Completed infusion ap3 20:01 Drug: Albuterol 2.5 mg Route: Inhalation; jb4 20:30 Follow up: Response: No adverse reaction; Marked relief of symptoms jb4 20:01 Drug: AtroVENT (ipratropium) Aerosol 0.5 mg Route: Inhalation; jb4 20:30 Follow up: Response: No adverse reaction; Marked relief of symptoms jb4 20:01 Drug: Tylenol 1000 mg Route: PO; jb4 22:20 Follow up: Response: No adverse reaction jb4 20:41 Drug: Ativan (LORazepam) 0.5 mg Route: IVP; Site: right antecubital; jb4 21:00 Follow up: Response: No adverse reaction; Marked relief of symptoms jb4 Disposition Summary: 11/11/20 17:28 Transfer Ordered Transfer Location: Other Acute Care Facility jr8 Reason: Higher level of care jr8 Condition: Stable jr8 Problem: new jr8 Symptoms: have improved jr8 Accepting Physician: Dr. George(11/12/20 01:08) jb4 Diagnosis - Severe sepsis without septic shock jr8 - Pneumonia, unspecified organism jr8 - Pleural effusion in other conditions classified elsewhere jr8 Forms: - Medication Reconciliation Form jr8 - SBAR form jr8 Signatures: Dispatcher [employer] EDMS Brayan Robledo PA PA jr8 Chester Lemon, RN RN jb4 Emily Ramirez RN RN jl7 Kenneth Leos MD MD tw4 Radha Agudelo RN RN ap3 Giovany Morales RN RN ae4 Josue Peterson MD MD mh7 Corrections: (The following items were deleted from the chart) 15:20 15:09 Tylenol 1000 mg PO once ordered. jr8 jl7 15:42 15:36 Abdomen Pelvis W Con+CT.RAD.BRZ ordered. EDMS EDMS 17:40 14:15 CORONAVIRUS+MR.LAB.BRZ ordered. EDMS EDMS 11/12 01:08 11/11 17:28 Dr. George jr8 jb4
--- NOTE | 2020-11-11 17:29 | ER ---
Nurse's Notes [facility] Name: Farhat Burch Sr Age: 75 yrs Sex: Male : 1945 Arrival Date: 11/11/2020 Time: 14:05 Bed 5 Private MD: Diagnosis: Severe sepsis without septic shock;Pneumonia, unspecified organism;Pleural effusion in other conditions classified elsewhere Presentation: 11/11 14:16 Chief complaint: EMS states: Not feeling well for the last few days, had a drain placed jl7 to the gallbladder a month ago and has not had a followup appointment. Coronavirus screen: Client denies travel out of the [place] in the last 14 days. At this time, the client does not indicate any symptoms associated with coronavirus-19. Ebola Screen: No symptoms or risks identified at this time. Initial Sepsis Screen: Does the patient meet any 2 criteria? Temp <36.0*C (96.8*F)) or > 38.3*C (100.9*F). HR > 90 bpm. Yes Does the patient have a suspected source of infection? Yes: Skin breakdown/wound If YES to both, name of provider notified: Brayan PIPER. Risk Assessment: Do you want to hurt yourself or someone else? Patient reports no desire to harm self or others. Onset of symptoms is unknown. Care prior to arrival: Medication(s) given: Tylenol, 1000 mg, IV. 14:16 Method Of Arrival: EMS: [facility] 14:16 Acuity: JESSE 2 jl7 14:18 Risk Assessment: Do you want to hurt yourself or someone else? Patient reports no ap3 desire to harm self or others. Historical: - Allergies: 14:20 No Known Drug Allergies; jl7 - PMHx: 14:20 Hypertension; resolved; Anemia; Anxiety; neely esophagus; COPD; Depression; Diabetes jl7 - IDDM; Hyperlipidemia; - Immunization history:: Adult Immunizations unknown. - Social history:: Smoking status: Patient reports the use of cigarette tobacco products, smokes one pack cigarettes per day. Screenin:17 Abuse screen: Denies threats or abuse. Nutritional screening: No deficits noted. ap3 Tuberculosis screening: No symptoms or risk factors identified. Assessment: 14:10 General: Appears uncomfortable, Behavior is calm, cooperative. Pain: Complains of pain ap3 in anterior aspect of right lateral abdomen Pain does not radiate. Pain currently is 6 out of 10 on a pain scale. Quality of pain is described as aching, throbbing, Pain began gradually, over the last week. Neuro: Level of Consciousness is awake, obeys commands, Oriented to person, place, time, situation. Cardiovascular: Denies chest pain, shortness of breath. Respiratory: Airway is patent Respiratory effort is even, unlabored, Respiratory pattern is regular, symmetrical, patient placed on 2 liters via NC. Patient reports that is what he wears at home as well. GI: Abdomen is drainage tube located on the right lateral aspect of patients abdomen. Patient states that it was placed aprox one month ago, but has started hurting. Pain gradually began a week ago, but has become greater today. Patient states pain is 6/10 on a 0-10 pain scale. Area around drainage tube is red in color, and hardened. Patient states he did not go to any of his follow up appointments after drainage tube was placed. : No signs and/or symptoms were reported regarding the genitourinary system. EENT: No signs and/or symptoms were reported regarding the EENT system. Derm: drainage tube to the right lateral aspect of abdomen. 16:15 Reassessment: Patient and/or family updated on plan of care and expected duration. Pain ap3 level reassessed. Patient is alert, oriented x 3, equal unlabored respirations, skin warm/dry/pink. patient updated on plan of care. 18:33 Reassessment: Patient and/or family updated on plan of care and expected duration. Pain ap3 level reassessed. Patient is alert, oriented x 3, equal unlabored respirations, skin warm/dry/pink. 19:05 Reassessment: Patient appears in no apparent distress at this time. Patient and/or jb4 family updated on plan of care and expected duration. Pain level reassessed. Patient is alert, oriented x 3, equal unlabored respirations, skin warm/dry/pink. 19:45 Reassessment: Pt reports sudden onset shortness of breath and shivering, has pulled off jb4 oxygen. Placed back on oxygen \T\3L, given multiple warm blankets to warm up, pulled up in bed, sat up to approximately 60 degrees. Pt able to take deep, labored breaths, rhonchi and wheezing noted JADIEL. Temp noted to be 99.3. Provider notified. 19:49 Reassessment: Dr Peterson at bedside for pt evaluation, pt shivering, c/o difficulty bb breathing, HR in the 150s. 19:55 Reassessment: Received verbal order for A:A treatment 1:1 and Tylenol 1g PO from Dr. jose cruz Peterson. 20:42 Reassessment: Pt appears more agitated, is trying to get up out of bed. Pt assisted jb4 back into bed. Provider notified, received verbal order form Dr. Peterson to give 0.5mg of Ativan IVP. 21:32 Reassessment: spoke to transfer center who stated the only hospital bed available is at [facility]. Pt notified and verbalized understanding of and agrees to plan of care. 21:45 Reassessment: Pt is resting in bed with eyes closed, respirations are even and jb4 unlabored with no s/s of pain or distress noted. 22:45 Reassessment: Patient appears in no apparent distress at this time. No changes from jb4 previously documented assessment. Patient and/or family updated on plan of care and expected duration. Pain level reassessed. 11/12 00:00 Reassessment: Pt remains resting in bed with eyes closed, respiration are even and jb4 unlabored with no s/s of pain or distress noted. 01:06 Reassessment: Patient appears in no apparent distress at this time. Patient and/or jb4 family updated on plan of care and expected duration. Pain level reassessed. Patient is alert, oriented x 3, equal unlabored respirations, skin warm/dry/pink. Pt transferred out via EMS. Vital Signs: 11/11 14:15 BP 106 / 62; Pulse 108; Resp 22; Pulse Ox 97% on 2 lpm NC; Pain 7/10; ap3 14:16 BP 106 / 58; Pulse 110; Resp 15; Temp 100.7; Pulse Ox 97% ; jl7 14:45 Weight 70.31 kg (R); ap3 15:25 Temp 98.7(O); ae4 16:22 BP 105 / 58; Pulse 87; Resp 26; Pulse Ox 98% on 2 lpm NC; ap3 17:20 Pulse 89; Resp 26; Pulse Ox 94% on R/A; ae4 18:33 BP 128 / 67; Pulse 90; Resp 17; Pulse Ox 96% on 2 lpm NC; ap3 19:45 BP 166 / 95; Pulse 148; Resp 30; Temp 99.3; Pulse Ox 88% on 3 lpm NC; jb4 20:45 BP 93 / 57; Pulse 115; Resp 32; Pulse Ox 93% on 35% BiPAP; jb4 21:00 BP 102 / 57; Pulse 112; Resp 32; Pulse Ox 91% on 35% BiPAP; jb4 22:00 BP 104 / 64; Pulse 95; Resp 28; Pulse Ox 99% on 35% BiPAP; jb4 23:00 BP 116 / 66; Pulse 82; Resp 22; Pulse Ox 98% on 35% BiPAP; jb4 11/12 00:00 BP 62 / 55; Pulse 89; Resp 26; Pulse Ox 98% on 35% BiPAP; jb4 00:30 BP 95 / 61; Pulse 84; Resp 22; Pulse Ox 100% on 35% BiPAP; jb4 ED Course: 11/11 13:20 Inserted saline lock: 20 gauge in left forearm, using aseptic technique. Blood ap3 collected. 14:05 Patient arrived in ED. tw4 14:06 Kenneth Leos MD is Attending Physician. tw4 14:10 Radha Agudelo, NAYANA is Primary Nurse. ap3 14:12 Brayan Robledo PA is PHCP. jr8 14:18 Arm band placed on right wrist. ap3 14:18 Patient has correct armband on for positive identification. Bed in low position. Call ap3 light in reach. Side rails up X2. desk monitor on. Pulse ox on. NIBP on. Door closed. Noise minimized. Warm blanket given. 14:20 Triage completed. jl7 15:04 Chest Single View XRAY In Process Unspecified. EDMS 15:58 Abdomen In Process Unspecified. EDMS 19:40 Primary Nurse role handed off by Radha Agudelo, RN tt3 20:00 Chester Lemon, NAYANA is Primary Nurse. jb4 11/12 00:30 No provider procedures requiring assistance completed. Patient transferred, IV remains jb4 in place. Administered Medications: 11/11 14:51 Drug: NS 0.9% (30 ml/kg) 30 ml/kg Route: IV; Rate: bolus; Site: left forearm; ap3 15:20 CANCELLED (Physician Discretion): Tylenol 1000 mg PO once jl7 15:30 Drug: Cefepime 1 grams Route: IVPB; Rate: 200 ml/hr; Infused Over: 30 mins; Site: right ae4 antecubital; 18:34 Follow up: IV Status: Completed infusion ap3 16:30 Drug: vancoMYCIN 1 grams Route: IVPB; Infused Over: 2 hrs; Site: right antecubital; ap3 18:34 Follow up: IV Status: Completed infusion ap3 20:01 Drug: Albuterol 2.5 mg Route: Inhalation; jb4 20:30 Follow up: Response: No adverse reaction; Marked relief of symptoms jb4 20:01 Drug: AtroVENT (ipratropium) Aerosol 0.5 mg Route: Inhalation; jb4 20:30 Follow up: Response: No adverse reaction; Marked relief of symptoms jb4 20:01 Drug: Tylenol 1000 mg Route: PO; jb4 22:20 Follow up: Response: No adverse reaction jb4 20:41 Drug: Ativan (LORazepam) 0.5 mg Route: IVP; Site: right antecubital; jb4 21:00 Follow up: Response: No adverse reaction; Marked relief of symptoms jb4 Outcome: 17:28 ER care complete, transfer ordered by . mary jo 0711 00:30 Transferred by ground EMS [facility]. to other acute care facility: [address] Transfer form completed. X-rays sent w/ patient. Condition: stable Discharge instructions given to patient, Instructed on the need for transfer, Demonstrated understanding of instructions. 01:08 Patient left the ED. [facility] Signatures: Dispatcher [employer] EDMS Vidya Prater RN Brayan Rebollar PA PA jr8 Chester Lemon RN NAYANA jb4 Emily Ramirez RN RN jl7 Kenneth Leos MD MD tw4 Radha Agudelo RN RN ap3 Giovany Morales RN RN ae4 Shemar Eli tt3 Corrections: (The following items were deleted from the chart) 01:06 00:58 Reassessment: Pt remains resting in [place] [id number]
[2020-11-11] MEDS ORDERED: ALBUTEROL 2.5 MG/3 ML NEB SOL ONE (20:14)
[2020-11-11] MEDS ORDERED: IPRATROPIUM BROM 0.5MG/2.5ML ONE (20:14)
[2020-11-11] MEDS ORDERED: ACETAMINOPHEN 500 MG TAB ONE (20:14)
[2020-11-11] MEDS ORDERED: LORazepam 2 MG/ML VIAL ONE (20:53)
[2020-11-11 20:58] LABS: Blood O2 Saturation 98.4 % (92-98.5)
[2020-11-11 20:59] LABS: Arterial Blood Carboxyhemoglob 2.1 % (0-1.5); Blood Gas Oxyhemoglobin 95.4 % (94-97)
[2020-11-11 22:20] LABS: Urine Blood Negative (Negative); Urine Glucose Negative (Negative); Urine Protein 1+ (Negative); Urine Specific Gravity 1.025 (1.005-1.030); Urine pH 5.5 (5.0-7.0)
[2020-11-11 23:16] LABS: Urine Bacteria 20-50 /HPF (NONE SEEN); Urine Mucus 1+ /HPF (NONE SEEN); Urine RBC <5 /HPF (NONE SEEN)
[2020-11-12 01:25] VITALS: TEMP 99.3
[2020-11-12 01:36] VITALS: BP 95/61; O2SAT 100
--- NOTE | 2020-11-13 16:10 | EKG ---
Test Date: 2020-11-11 Test Time: 19:52:40 Active Directory Architect: VICTOR MANUEL MEASUREMENT RESULTS: Intervals: Rate: 149 VA: QRSD: 132 QT: 346 QTc: 544 [place]: P: VA: QRS: -69 T: 86 INTERPRETIVE STATEMENTS: afib lbbb rvr Left axis deviation Nonspecific intraventricular block Cannot rule out Septal infarct, age undetermined T wave abnormality, consider lateral ischemia Abnormal ECG Compared to ECG 11/11/2020 15:03:40 Fusion complex(es) now present Wide-QRS tachycardia now present Myocardial infarct finding now present T-wave abnormality now present Possible ischemia now present Sinus rhythm no longer present Left bundle-branch block no longer present Electronically Signed On 11-13-20 16:05:09 CDT by Arnold Estes
--- NOTE | 2020-11-13 16:11 | EKG ---
Test Date: 2020-11-11 Test Time: 15:03:40 Wearing Apparel Folder: ALP MEASUREMENT RESULTS: Intervals: Rate: 92 FL: 170 QRSD: 148 QT: 416 QTc: 514 [place]: P: 59 FL: 170 QRS: -44 T: 109 INTERPRETIVE STATEMENTS: Normal sinus rhythm Left axis deviation Left bundle branch block Abnormal ECG Compared to ECG 10/13/2020 22:43:22 Atrial premature complex(es) no longer present Electronically Signed On 11-13-20 16:05:13 CDT by Arnold Estes
== END 2020-11-12 01:08 ==
LOC: ER 14:01
DX: J18.9 Pneumonia, unspecified organism (principal); R65.20 Severe sepsis without septic shock; J91.8 Pleural effusion in other conditions classified elsewhere; F17.210 Nicotine dependence, cigarettes, uncomplicated; Z20.822 Contact with and (suspected) exposure to COVID-19
CPT/HCPCS: 93005 ×2; 87040 ×2; 87088; 85025; 87086; 80048; 36415; 85610; 85379; 80076; 83605; 85730; 84484 ×2; 83690; 84145; 87807; 87804 ×2; 74176; 71045; 82805; 94660; 99285; U0003; J3370; J0692; J7030; 81003; 81015

== ENCOUNTER 2021-03-28 13:58 | Emergency (ER) | payer OTHER ==
--- OUTSIDE RECORDS SUMMARY | 2021-03-28 14:05 | XMS REPORT | Continuity of Care Document ---
:1945 Author Organization [facility] t Address [address] [place] [address] Care Team Providers Name Role Phone KEYANA Attending Clinician Unavailable AMEEN Attending Clinician Unavailable Fransisco LINDSAY Attending Clinician Unavailable ALINA JACOBSON Attending Clinician Unavail able AHBRUNILDA Admitting Clinician Unavailable AMEEN Admitting Clinician Unavailable Fransisco LINDSAY Admitting Clinician Unavailable ALINA JACOBSON Admitting Clinician Unavail able Payers Payer Name Policy Type Policy Number Effective Date Expiration Date S ource OUT OF STATE [place] [id number] 1999 00:00:00 [facility] CHOICE [id number] 2020 00:00:00 CARD AND PC3 Problems This patient has no known problems. Allergies, Adverse Reactions, Alerts Allergy Allergy Status Severity Reaction(s) Onset Inactive Treating Comm ents Source Name Type Date Date Clinician NO KNOWN Allergy Active HV ALLERGIE S Medications This patient has no known medications. Vital Signs Vital Name Observation Time Observation Value Comments Source WEIGHT 2020-11-12 03:00:00 70.761 kg HEIGHT 2020-11-12 03:00:00 182.9 cm WEIGHT 2020-10-20 06:31:00 69.945 kg WEIGHT 2020-10-19 06:00:00 69.4 kg HEIGHT 2020-10-14 04:00:00 182.9 cm WEIGHT 2020-10-14 04:00:00 69.5 kg WEIGHT 2020-07-07 06:00:00 65.363 kg WEIGHT 2020-07-06 05:30:00 65.5 kg WEIGHT 2020-07-05 06:00:00 64 kg HEIGHT 2020-07-03 05:00:00 182.9 cm WEIGHT 2020-07-03 05:00:00 63.5 kg HEIGHT 2020-07-02 20:25:00 182.9 cm WEIGHT 2020-07-02 20:25:00 63.5 kg WEIGHT 2020-11-12 03:00:00 70.761 kg HEIGHT 2020-11-12 03:00:00 182.9 cm WEIGHT 2020-10-20 06:31:00 69.945 kg WEIGHT 2020-10-19 06:00:00 69.4 kg HEIGHT 2020-10-14 04:00:00 182.9 cm WEIGHT 2020-10-14 04:00:00 69.5 kg WEIGHT 2020-07-07 06:00:00 65.363 kg WEIGHT 2020-07-06 05:30:00 65.5 kg WEIGHT 2020-07-05 06:00:00 64 kg HEIGHT 2020-07-03 05:00:00 182.9 cm WEIGHT 2020-07-03 05:00:00 63.5 kg HEIGHT 2020-07-02 20:25:00 182.9 cm WEIGHT 2020-07-02 20:25:00 63.5 kg Procedures This patient has no known procedures. Encounters Start End Encounter Admission Attending Care Care Encounter Source Date/Time Date/Time Type Type Clinicians Facility Department ID 2021-02-11 Inpatient ER [facility] Pulmonology [id number] [facility] 04:13:37 [facility] 2021-02-11 [place] [facility] [place] Internal [id number] [facility] 04:12:36 [facility] 2020-10-14 Inpatient ER DARIN [facility] General Med 0 [id number] [facility] 03:44:00 [place] 2020-07-02 Inpatient ER COUNT INCLUDES THE [facility] Neurology [id number] [facility] 20:02:00 PILAR PAULINO Results Test Description Test Time Test Comments Results Result Comments Source POCT-GLUCOSE METER 2020-11-24 11:38:00 Test Item Value Reference Range Interpretation Comme nts POC-GLUCOSE METER (BEAKER) 150 mg/dL 70-110 H : TESTED AT [facility] [id number] [place] [address] (test code = 1538) [place] [address]: Technical Healthcare Consultant/Techni michael ID = [id number] for Saad Avilez a POCT-GLUCOSE [id number] 06:49:00 Test Item Value Reference Range Interpretation Comments POC-GLUCOSE METER 95 mg/dL 70-110 : TESTED A T [facility] (BEAKER) (test code = [address], 1538) [place] [address] 0: Technical Healthcare Consultant/Techni michael ID = [id number] for Saravanan s, Kebbah POCT-GLUCOSE [id number] 20:48:00 Test Item Value Reference Range Interpretation Comments POC-GLUCOSE METER 146 mg/dL 70-110 H : TESTED A T [facility] (BEAKER) (test code [address], = 1538) [place] [address] 0: Technical Healthcare Consultant/Techni michael ID = [id number] for Saravanan s, Kebbah POCT-GLUCOSE [id number] 17:03:00 Test Item Value Reference Range Interpretation Comments POC-GLUCOSE METER 117 mg/dL 70-110 H : TESTED A T [facility] (BEAKER) (test code [address], = 1538) [place] [address] 0: Technical Healthcare Consultant/Techni michael ID = [id number] for Jm Rama amador ID, CHOLANGIOGRAM, [id number] 15:12:00 [facility] : 1945 Sex: MFINAL REPORT Procedure: Cholecystostomy tube check History: cholangiogram Machining Department Supervisor: Leif Ojeda MD. Human Performance Professor: None. Modality: Fluoroscopy DOSE REDUCTION: The examination was performed according to departmental dose-optimization program which includes automated exposure control, adjustment of the mA and/or kV according to patient size. Fluoro time: 0.3 minutes. Radiation dose: 18.5 mGy air Kerma. Sedation: Not applicable Anesthesia: Not applicable. Estimated blood loss: 0 cc. Technique: The patient was laid supine on the fluoroscopy table. A export clerk radiograph was obtained. Gentle injection of contrast medium was obtained through the existing catheter and intermittent fluoroscopic observations were made and photospot images obtained in AP and MICHELLE projections. The injected material was thereafter aspirated and additional fluoroscopic and photospot images were obtained. The catheter was then connected back to the drainage system. The patient left the department in stable condition. Complications: None immediate. Findings: The cholecystostomycatheter is in the expected location. There are no radiopaque gallbladder calculi. Is prompt fillinggallbladder the injected contrast passes down the cystic duct into the common bile duct. There is nocommon bile duct abnormality or filling defect. Is prompt passage of contrast material across the ampulla to the left. There is presence of multiple small non-radiopaque calculi in the gallbladder body. Possibility of calculus in the region of gallbladder neck also considered. 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 Impression: Cholecystostomy catheter in the expected location with no obstruction of the cystic or common bile ducts. There is presence of gallbladder sludge and stones. There might be a calculus in the gallbladder neck. The cholecystostomy catheter should be left in place until surgical cholecystostomy. The catheter should be exchanged in 6 weeks if the need arises. Thank you for the opportunity to assist in the care of your patient. Signed: Leif Ojeda Verified Date/Time: 11/23/2020 15:12:15 Reading Location: [facility] Diagnostic Imaging Reading Room - [facility] 1.310.12 POCT-GLUCOSE [id number] 12:08:00 Test Item Value Reference Range Interpretation Comments POC-GLUCOSE METER 147 mg/dL 70-110 H : TESTED A T [facility] (BEAKER) (test code [address], = 1538) [place] [address] 0: Technical Healthcare Consultant/Techni michael ID = [id number] for Rama Oneal phT-GLUCOSE [id number] 07:08:00 Test Item Value Reference Range Interpretation Comments POC-GLUCOSE METER 94 mg/dL 70-110 : TESTED A T [facility] (BEAKER) (test code = [address], 1538) [place] [address] 0: Technical Healthcare Consultant/Techni michael ID = [id number] for Safia Galvin POCT-GLUCOSE [id number] 20:59:00 Test Item Value Reference Range Interpretation Comments POC-GLUCOSE METER 103 mg/dL 70-110 : TESTED A T [facility] (BEAKER) (test code [address], = 1538) [place] [address] 0: Technical Healthcare Consultant/Techni michael ID = [id number] for Safia Galvin POCT-GLUCOSE [id number] 13:39:00 Test Item Value Reference Range Interpretation Comments POC-GLUCOSE METER 141 mg/dL 70-110 H : TESTED A T [facility] (BEAKER) (test code [address], = 1538) [place] [address] 0: Technical Healthcare Consultant/Techni michael ID = [id number] for Libby Hector POCT-GLUCOSE [id number] 05:52:00 Test Item Value Reference Range Interpretation Comments POC-GLUCOSE METER 108 mg/dL 70-110 : TESTED A T [facility] (BEAKER) (test code [address], = 1538) [place] [address] 0: Technical Healthcare Consultant/Techni michael ID = [id number] for Queenie Worthington POCT-GLUCOSE [id number] 21:46:00 Test Item Value Reference Range Interpretation Comments POC-GLUCOSE METER 125 mg/dL 70-110 H : TESTED A T [facility] (BEAKER) (test code [address], = 1538) [place] [address] 0: Technical Healthcare Consultant/Techni michael ID = [id number] for Liset Mcnally SARS-COV2/RT-PCR ([facility])2020-11-21 20:15:00 Test Item Value Reference Range Interpretation Comments SARS-COV2/RT-PCR Negative Negative The SARS-Co V-2 target (test code = 7079675) nuclei c acids are not detected in thi s specimen. The presence of SARS-CoV-2/FLU/RSV viral nucleic acids cannot rule out co- infections or disease caused by other viral or bacterial pathogens. As with any molecular test, mutations within the target regions of the Xpert Xpress SARS-CoV-2/Flu/RSV test could affect primer and/or probe binding resulting in failure to detect the presence of virus or the virus being detected less predictably. False negative results may occur if the virus is present at levels below the analytical limit of detection in this specimen.This Xpert Xpress SARS-CoV-2/Flu/RSV test is a rapid, real-time RT-PCR test intended for the qualitative detection of nucleic acid from Xpert Xpress SARS-CoV-2/Flu/RSV in a nasopharyngeal swab specimen collected from individuals suspected of Xpert Xpress SARS-CoV-2/Flu/RSV by their healthcare provider. Results from maya Xpert Xpress SARS-CoV-2/Flu/RSV test should be correlated with the clinical history, epidemiological data, and other data available to the clinician evaluating the patient. Viral nucleic acid may persist in vivo, independent of virus viability. Detection of analyte target(s) does not imply that the corresponding virus(es) are infectious or are the causative agents for clinical symptoms.This test has not been Food and Drug [...] 564(g) of the Act.Fact Sheet for Healthcare Providers :https://www.[employer]/Documents/Xpert%20Xpress%20SARS%20CoV-2/Fact%20Sheets/3 3902%35VQDT-DWP-2%20HEALTHCARE%20PROVIDERS%20FACT%20SHEET.pdfFact Sheet for Healthcare Patients:https://www.[employer] /Documents/Xpert%20Xpress%20SARS%20Cov-2/Fact%20Sheets/3023801%68WTOS-UPI-7%20P ATIENT%20FACT%20SHEET.pdfPOCT-GLUCOSE [id number] 16:27:00 Test Item Value Reference Range Interpretation Comments POC-GLUCOSE METER 137 mg/dL 70-110 H : TESTED A T [facility] (BEAKER) (test code [address], = 1538) [place] [address] 0: Technical Healthcare Consultant/Techni michael ID = [id number] for Jaimie Ramos POCT-GLUCOSE [id number] 11:57:00 Test Item Value Reference Range Interpretation Comments POC-GLUCOSE METER 129 mg/dL 70-110 H : TESTED A T [facility] (BEAKER) (test code [address], = 1538) [place] [address] 0: Technical Healthcare Consultant/Techni michael ID = [id number] for Jaimie Ramos POCT-GLUCOSE [id number] 06:06:00 Test Item Value Reference Range Interpretation Comments POC-GLUCOSE METER 111 mg/dL 70-110 H : TESTED A T [facility] (BEAKER) (test code [address], = 1538) [place] [address] 0: Technical Healthcare Consultant/Techni michael ID = [id number] for Katelyn jesus Cindy CBC W/PLT COUNT & AUTO [id number] 05:58:00 Test Item Value Reference Range Interpretation Comments WHITE BLOOD CELL COUNT (BEAKER) 4.9 K/ L 4.0-10.0 (test code = 775) RED BLOOD CELL COUNT (BEAKER) 3.11 M/ L 4.20-5.80 L (test code = 761) HEMOGLOBIN (BEAKER) (test code = 9.2 GM/DL 13.0-16.8 L 410) HEMATOCRIT (BEAKER) (test code = 29.9 % 36.0-50.0 L 411) MEAN CORPUSCULAR VOLUME (BEAKER) 96.1 fL 82.0-99.0 (test code = 753) MEAN CORPUSCULAR HEMOGLOBIN 29.6 pg 27.0-33.0 (BEAKER) (test code = 751) MEAN CORPUSCULAR HEMOGLOBIN CONC 30.8 GM/DL 32.0-36.0 L (BEAKER) (test code = 752) RED CELL DISTRIBUTION WIDTH 20.8 % 12.0-15.0 H (BEAKER) (test code = 412) PLATELET COUNT (BEAKER) (test 478 K/CU MM 150-430 H code = 756) MEAN PLATELET VOLUME (BEAKER) 8.8 fL 6.0-11.5 (test code = 754) NUCLEATED RED BLOOD CELLS 0 /100 WBC 0-0 (BEAKER) (test code = 413) NEUTROPHILS RELATIVE PERCENT 74 % (BEAKER) (test code = 429) LYMPHOCYTES RELATIVE PERCENT 16 % (BEAKER) (test code = 430) MONOCYTES RELATIVE PERCENT 7 % (BEAKER) (test code = 431) EOSINOPHILS RELATIVE PERCENT 1 % (BEAKER) (test code = 432) BASOPHILS RELATIVE PERCENT 1 % (BEAKER) (test code = 437) NEUTROPHILS ABSOLUTE COUNT 3.56 K/ L 1.80-8.00 (BEAKER) (test code = 670) LYMPHOCYTES ABSOLUTE COUNT 0.79 K/ L 1.48-4.50 L (BEAKER) (test code = 414) MONOCYTES ABSOLUTE COUNT (BEAKER) 0.33 K/ L 0.00-1.30 (test code = 415) EOSINOPHILS ABSOLUTE COUNT 0.07 K/ L 0.00-0.50 (BEAKER) (test code = 416) BASOPHILS ABSOLUTE COUNT (BEAKER) 0.04 K/ L 0.00-0.20 (test code = 417) IMMATURE GRANULOCYTES-RELATIVE 1 % 0-0 H PERCENT (BEAKER) (test code = 2801) (MANUAL DIFFERENTIAL)2020-11-21 05:58:00 Test Item Value Reference Range Interpretation Comments TOTAL COUNTED (BEAKER) (test code = 1351) WBC MORPHOLOGY (BEAKER) (test code = Normal 487) PLT MORPHOLOGY (BEAKER) (test code = Normal 486) ANISOCYTOSIS (BEAKER) (test code = 1+ few 961) ELLIPTOCYTES (BEAKER) (test code = 1+ few 962) HYPOCHROMIA (BEAKER) (test code = 963) 1+ few POLYCHROMATOPHILLIC RBCS(BEAKER) (test 1+ few code = 478) BASIC METABOLIC [id number] 05:53:00 Test Item Value Reference Range Interpretation Comments SODIUM (BEAKER) 141 meq/L 135-148 (test code = 381) POTASSIUM (BEAKER) 3.8 meq/L 3.6-5.5 (test code = 379) CHLORIDE (BEAKER) 100 meq/L 98-106 (test code = 382) CO2 (BEAKER) (test 31 meq/L 20-29 H code = 355) BLOOD UREA NITROGEN 11 mg/dL 10-26 (BEAKER) (test code = 354) CREATININE (BEAKER) 1.08 mg/dL 0.50-1.20 (test code = 358) GLUCOSE RANDOM 103 mg/dL 70-110 (BEAKER) (test code = 652) CALCIUM (BEAKER) 9.1 mg/dL 8.5-10.5 (test code = 697) EGFR (BEAKER) (test 67 mL/min/1.73 ESTIMA RUKHSANA GFR IS code = 1092) sq m NOT ACCURATE CREATININE CLEARANCE IN PREDICTING GLOMERULAR FILTRATION RATE . ESTIMATED GFR I S NOT APPLICABLE FOR DIALYSIS PATIEN TS. Technical Healthcare Consultant ID - Lisa [id number] 05:53:00 Test Item Value Reference Range Interpretation Comments MAGNESIUM (BEAKER) (test code = 2.2 mg/dL 1.5-3.0 627) Technical Healthcare Consultant ID - Lisa [id number] 05:53:00 Test Item Value Reference Range Interpretation Comments PHOSPHORUS (BEAKER) (test code = 3.1 mg/dL 2.5-4.5 604) Technical Healthcare Consultant ID - Lisa TPOCT-GLUCOSE [id number] 20:19:00 Test Item Value Reference Range Interpretation Comments POC-GLUCOSE METER 143 mg/dL 70-110 H : TESTED A T [facility] (BEAKER) (test code [address], = 1538) [place] [address] 0: Technical Healthcare Consultant/Techni michael ID = [id number] for Queenie Worthington POCT-GLUCOSE [id number] 17:27:00 Test Item Value Reference Range Interpretation Comments POC-GLUCOSE METER 116 mg/dL 70-110 H : TESTED A T [facility] [address] (BEAKER) (test code [address], = 1538) [place] [address] 0: Technical Healthcare Consultant/Techni michael ID = [id number] for Terrance Seaman POCT-GLUCOSE [id number] 12:11:00 Test Item Value Reference Range Interpretation Comments POC-GLUCOSE METER 147 mg/dL 70-110 H : TESTED A T [facility] [address] (BEAKER) (test code [address], = 1538) [place] [address] 0: Technical Healthcare Consultant/Techni michael ID = [id number] for Reina Mitchell POCT-GLUCOSE [id number] 06:39:00 Test Item Value Reference Range Interpretation Comments POC-GLUCOSE METER 120 mg/dL 70-110 H : TESTED A T [facility] (BEAKER) (test code [address], = 1538) [place] [address] 0: Technical Healthcare Consultant/Techni michael ID = [id number] for Laura Langford CBC W/PLT COUNT & AUTO [id number] 04:59:00 Test Item Value Reference Range Interpretation Comments WHITE BLOOD CELL COUNT (BEAKER) 5.3 K/ L 4.0-10.0 (test code = 775) RED BLOOD CELL COUNT (BEAKER) 2.77 M/ L 4.20-5.80 L (test code = 761) HEMOGLOBIN (BEAKER) (test code = 8.0 GM/DL 13.0-16.8 L 410) HEMATOCRIT (BEAKER) (test code = 25.6 % 36.0-50.0 L 411) MEAN CORPUSCULAR VOLUME (BEAKER) 92.4 fL 82.0-99.0 (test code = 753) MEAN CORPUSCULAR HEMOGLOBIN 28.9 pg 27.0-33.0 (BEAKER) (test code = 751) MEAN CORPUSCULAR HEMOGLOBIN CONC 31.3 GM/DL 32.0-36.0 L (BEAKER) (test code = 752) RED CELL DISTRIBUTION WIDTH 20.8 % 12.0-15.0 H (BEAKER) (test code = 412) PLATELET COUNT (BEAKER) (test 393 K/CU MM 150-430 code = 756) MEAN PLATELET VOLUME (BEAKER) 8.6 fL 6.0-11.5 (test code = 754) NUCLEATED RED BLOOD CELLS 0 /100 WBC 0-0 (BEAKER) (test code = 413) NEUTROPHILS RELATIVE PERCENT 54 % (BEAKER) (test code = 429) LYMPHOCYTES RELATIVE PERCENT 30 % (BEAKER) (test code = 430) MONOCYTES RELATIVE PERCENT 11 % (BEAKER) (test code = 431) EOSINOPHILS RELATIVE PERCENT 3 % (BEAKER) (test code = 432) BASOPHILS RELATIVE PERCENT 2 % (BEAKER) (test code = 437) NEUTROPHILS ABSOLUTE COUNT 2.86 K/ L 1.80-8.00 (BEAKER) (test code = 670) LYMPHOCYTES ABSOLUTE COUNT 1.57 K/ L 1.48-4.50 (BEAKER) (test code = 414) MONOCYTES ABSOLUTE COUNT (BEAKER) 0.57 K/ L 0.00-1.30 (test code = 415) EOSINOPHILS ABSOLUTE COUNT 0.15 K/ L 0.00-0.50 (BEAKER) (test code = 416) BASOPHILS ABSOLUTE COUNT (BEAKER) 0.09 K/ L 0.00-0.20 (test code = 417) IMMATURE GRANULOCYTES-RELATIVE 2 % 0-0 H PERCENT (BEAKER) (test code = 2801) (MANUAL DIFFERENTIAL)2020-11-20 04:59:00 Test Item Value Reference Range Interpretation Comments TOTAL COUNTED (BEAKER) (test code = 1351) WBC MORPHOLOGY (BEAKER) (test Normal code = 487) PLT MORPHOLOGY (BEAKER) (test Normal code = 486) ANISOCYTOSIS (BEAKER) (test code 2+ moderate = 961) ELLIPTOCYTES (BEAKER) (test code 1+ few = 962) OVALOCYTES (BEAKER) (test code = 1+ few 477) POLYCHROMATOPHILLIC RBCS(BEAKER) 1+ few (test code = 478) B-TYPE NATRIURETIC FACTOR (BNP)2020-11-20 04:36:00 Test Item Value Reference Range Interpretation Comments B-TYPE NATRIURETIC PEPTIDE 1216 pg/mL 0-100 H (BEAKER) (test code = 700) Technical Healthcare Consultant ID - SHANNONBASIC METABOLIC [id number] 04:30:00 Test Item Value Reference Range Interpretation Comments SODIUM (BEAKER) 139 meq/L 135-148 (test code = 381) POTASSIUM (BEAKER) 3.9 meq/L 3.6-5.5 (test code = 379) CHLORIDE (BEAKER) 102 meq/L 98-106 (test code = 382) CO2 (BEAKER) (test 27 meq/L 20-29 code = 355) BLOOD UREA NITROGEN 9 mg/dL 10-26 L (BEAKER) (test code = 354) CREATININE (BEAKER) 1.04 mg/dL 0.50-1.20 (test code = 358) GLUCOSE RANDOM 113 mg/dL 70-110 H (BEAKER) (test code = 652) CALCIUM (BEAKER) 8.6 mg/dL 8.5-10.5 (test code = 697) EGFR (BEAKER) (test 70 mL/min/1.73 ESTIMA RUKHSANA GFR IS code = 1092) sq m NOT ACCURATE CREATININE CLEARANCE IN PREDICTING GLOMERULAR FILTRATION RATE . ESTIMATED GFR I S NOT APPLICABLE FOR DIALYSIS PATIEN TS. Technical Healthcare Consultant ID - [id number] 04:30:00 Test Item Value Reference Range Interpretation Comments MAGNESIUM (BEAKER) (test code = 2.0 mg/dL 1.5-3.0 627) Technical Healthcare Consultant ID - [id number] 04:30:00 Test Item Value Reference Range Interpretation Comments PHOSPHORUS (BEAKER) (test code = 2.7 mg/dL 2.5-4.5 604) Technical Healthcare Consultant ID - KAVITAPOCT-GLUCOSE [id number] 20:07:00 Test Item Value Reference Range Interpretation Comments POC-GLUCOSE METER 110 mg/dL 70-110 : TESTED A T [facility] (BEAKER) (test code [address], = 1538) [place] [address] 0: Technical Healthcare Consultant/Techni imchael ID = [id number] for PamMaribel hillman POCT-GLUCOSE [id number] 18:53:00 Test Item Value Reference Range Interpretation Comments POC-GLUCOSE METER 114 mg/dL 70-110 H : TESTED A T [facility] (BEAKER) (test code [address], = 1538) [place] [address] 0: Technical Healthcare Consultant/Techni michael ID = [id number] for Reina Mitchell RAD, CHEST, 1 VIEW, NON [id number] 15:02:00Reason for exam:->shortness of breathShould this be performed at the bedside?->Yes [facility] : 1945 Sex: MFINAL REPORT Chest, one view. HISTORY: shortness of breath COMPAR KAYLA: Radiograph from 11/17/2020 IMPRESSION: The support lines and tubes are unchanged in position. The small right pleural effusion and right basilar opacity are unchanged. There is some new streaky opacity in the left lower lung which could be due to atelectasis or aspiration of depending on clinical setting. A left lower lung calcified granuloma is unchanged. The cardiac silhouette is unchanged insize. No acute bone abnormality. Signed: Margie Foster Verified Date/Time: 11/19/2020 15:02:18 Reading Location: [facility] C013Y CT Body Reading Room POCT-GLUCOSE [id number] 11:52:00 Test Item Value Reference Range Interpretation Comments POC-GLUCOSE METER 137 mg/dL 70-110 H : TESTED A T [facility] (BEAKER) (test code [address], = 1538) [place] [address] 0: Technical Healthcare Consultant/Techni michael ID = [id number] for Reina Mitchell POCT-GLUCOSE [id number] 06:29:00 Test Item Value Reference Range Interpretation Comments POC-GLUCOSE METER 115 mg/dL 70-110 H : TESTED A T [facility] (BEAKER) (test code [address], = 1538) [place] [address] 0: Technical Healthcare Consultant/Techni michael ID = [id number] for Siso n, Athalia BASIC METABOLIC [id number] 04:54:00 Test Item Value Reference Range Interpretation Comments SODIUM (BEAKER) 140 meq/L 135-148 (test code = 381) POTASSIUM (BEAKER) 4.1 meq/L 3.6-5.5 (test code = 379) CHLORIDE (BEAKER) 105 meq/L 98-106 (test code = 382) CO2 (BEAKER) (test 27 meq/L 20-29 code = 355) BLOOD UREA NITROGEN 11 mg/dL 10-26 (BEAKER) (test code = 354) CREATININE (BEAKER) 1.03 mg/dL 0.50-1.20 (test code = 358) GLUCOSE RANDOM 112 mg/dL 70-110 H (BEAKER) (test code = 652) CALCIUM (BEAKER) 8.5 mg/dL 8.5-10.5 (test code = 697) EGFR (BEAKER) (test 71 mL/min/1.73 ESTIMA RUKHSANA GFR IS code = 1092) sq m NOT ACCURATE CREATININE CLEARANCE IN PREDICTING GLOMERULAR FILTRATION RATE . ESTIMATED GFR I S NOT APPLICABLE FOR DIALYSIS PATIEN TS. Technical Healthcare Consultant ID - Lisa [id number] 04:54:00 Test Item Value Reference Range Interpretation Comments MAGNESIUM (BEAKER) (test code = 2.1 mg/dL 1.5-3.0 627) Technical Healthcare Consultant ID - Lisa [id number] 04:54:00 Test Item Value Reference Range Interpretation Comments PHOSPHORUS (BEAKER) (test code = 2.5 mg/dL 2.5-4.5 604) Technical Healthcare Consultant ID - Lisa TCBC W/PLT COUNT & AUTO [id number] 04:49:00 Test Item Value Reference Range Interpretation Comments WHITE BLOOD CELL COUNT (BEAKER) 5.1 K/ L 4.0-10.0 (test code = 775) RED BLOOD CELL COUNT (BEAKER) 2.90 M/ L 4.20-5.80 L (test code = 761) HEMOGLOBIN (BEAKER) (test code = 8.4 GM/DL 13.0-16.8 L 410) HEMATOCRIT (BEAKER) (test code = 27.5 % 36.0-50.0 L 411) MEAN CORPUSCULAR VOLUME (BEAKER) 94.8 fL 82.0-99.0 (test code = 753) MEAN CORPUSCULAR HEMOGLOBIN 29.0 pg 27.0-33.0 (BEAKER) (test code = 751) MEAN CORPUSCULAR HEMOGLOBIN CONC 30.5 GM/DL 32.0-36.0 L (BEAKER) (test code = 752) RED CELL DISTRIBUTION WIDTH 21.1 % 12.0-15.0 H (BEAKER) (test code = 412) PLATELET COUNT (BEAKER) (test 386 K/CU MM 150-430 code = 756) MEAN PLATELET VOLUME (BEAKER) 8.7 fL 6.0-11.5 (test code = 754) NUCLEATED RED BLOOD CELLS 0 /100 WBC 0-0 (BEAKER) (test code = 413) NEUTROPHILS RELATIVE PERCENT 57 % (BEAKER) (test code = 429) LYMPHOCYTES RELATIVE PERCENT 28 % (BEAKER) (test code = 430) MONOCYTES RELATIVE PERCENT 10 % (BEAKER) (test code = 431) EOSINOPHILS RELATIVE PERCENT 2 % (BEAKER) (test code = 432) BASOPHILS RELATIVE PERCENT 2 % (BEAKER) (test code = 437) NEUTROPHILS ABSOLUTE COUNT 2.94 K/ L 1.80-8.00 (BEAKER) (test code = 670) LYMPHOCYTES ABSOLUTE COUNT 1.42 K/ L 1.48-4.50 L (BEAKER) (test code = 414) MONOCYTES ABSOLUTE COUNT (BEAKER) 0.50 K/ L 0.00-1.30 (test code = 415) EOSINOPHILS ABSOLUTE COUNT 0.11 K/ L 0.00-0.50 (BEAKER) (test code = 416) BASOPHILS ABSOLUTE COUNT (BEAKER) 0.09 K/ L 0.00-0.20 (test code = 417) IMMATURE GRANULOCYTES-RELATIVE 2 % 0-0 H PERCENT (BEAKER) (test code = 2801) (MANUAL DIFFERENTIAL)2020-11-19 04:49:00 Test Item Value Reference Range Interpretation Comments TOTAL COUNTED (BEAKER) (test code = 1351) WBC MORPHOLOGY (BEAKER) (test code = Normal 487) PLT MORPHOLOGY (BEAKER) (test code = Normal 486) ANISOCYTOSIS (BEAKER) (test code = 1+ few 961) BASOPHILIC STIPPLING (BEAKER) (test Present code = 473) HYPOCHROMIA (BEAKER) (test code = 1+ few 963) OVALOCYTES (BEAKER) (test code = 477) 1+ few POLYCHROMATOPHILLIC RBCS(BEAKER) 1+ few (test code = 478) POCT-GLUCOSE [id number] 20:36:00 Test Item Value Reference Range Interpretation Comments POC-GLUCOSE METER 108 mg/dL 70-110 : TESTED A T [facility] (BEAKER) (test code [address], = 1538) [place] [address] 0: Technical Healthcare Consultant/Techni michael ID = [id number] for Ray Yoderazon POCT-GLUCOSE [id number] 17:17:00 Test Item Value Reference Range Interpretation Comments POC-GLUCOSE METER 99 mg/dL 70-110 : TESTED A T [facility] (BEAKER) (test code = [address] DR, 1538) [place] [address] 0: Technical Healthcare Consultant/Techni michael ID = [id number] for Rama Oneal ph POCT-GLUCOSE [id number] 11:30:00 Test Item Value Reference Range Interpretation Comments POC-GLUCOSE METER 211 mg/dL 70-110 H : [facility] (test code [address] DR, = 1538) [place] [address] 0: Technical Healthcare Consultant/Techni michael ID = [id number] for Libby Hector [facility], MULTI, PHARM, [id number] 10:12:00NPO AFTER MIDNIGHT. NO CAFFEINE STARTING NOW.Reason for exam:->elevated troponin [facility] : 1945 Sex: MFINAL REPORT PROCEDURE: Myocardial Perfusion Imaging with Pharmac ologic Stress PHARMACOLOGIC INDICATION: Reason for pharmacologic stress is instability on feet. PROTOCOL:This was a two day study and the imaging sequence was rest/stress. Tomographic (SPECT) myocardial perfusion imaging was performed supine at rest 65 minutes after the intravenous injection of 18 mCi Tc-99m sestamibi. During Lexiscan (regadenoson) stress, the patient was injected with 18 mCi Tc-99m sestamibi intravenously. Gated post-stress imaging was performed supine and prone 85 minutes after stress. Pharmacologic stress testing was performed with the intravenous injection of 0.4 mg Lexiscan within 30 seconds. The patient's heart rate went from 81 beats/minute at rest to 98 beats/minute during stress. The blood pressure went from 126/68 mm Hg at rest to 108/56 mm Hg during stress, which is a normal response to pharmacologic stress. The patient did not complain of chest pain at rest. The patient did not complain of chest pain during stress. The resting electrocardiogram (ECG) showed sinus rhythm and left bundle branch block with PVC and did not demonstrate any ST-segment changesduring stress. FINDINGS:The overall quality of the study is good. Perfusion SPECT images at rest and stress shows a large sized, severe intensity, fixed inferior to infero- apical perfusion defect. There is a second, medium size, mild-moderate intensity, lateral reversible perfusion defect. The left ventricular (LV) cavity appears normal. The right ventricular (RV) cavity appears normal. The left ventricular ejection fraction (EF) is mildly depressed at 42%. Gated SPECT images shows inferiorwall akinesis. IMPRESSION: Abnormal myocardial perfusion stress test. Overall left ventricular function is mildly depressed with inferior wall akinesis. Signed: Monica Golden MDReport Verified Date/Time: 11/18/2020 10:12:50 CBC W/PLT COUNT & AUTO [id number] 05:28:00 Test Item Value Reference Range Interpretation Comments WHITE BLOOD CELL COUNT (BEAKER) 5.7 K/ L 4.0-10.0 (test code = 775) RED BLOOD CELL COUNT (BEAKER) 2.56 M/ L 4.20-5.80 L (test code = 761) HEMOGLOBIN (BEAKER) (test code = 7.4 GM/DL 13.0-16.8 L 410) HEMATOCRIT (BEAKER) (test code = 24.7 % 36.0-50.0 L 411) MEAN CORPUSCULAR VOLUME (BEAKER) 96.5 fL 82.0-99.0 (test code = 753) MEAN CORPUSCULAR HEMOGLOBIN 28.9 pg 27.0-33.0 (BEAKER) (test code = 751) MEAN CORPUSCULAR HEMOGLOBIN CONC 30.0 GM/DL 32.0-36.0 L (BEAKER) (test code = 752) RED CELL DISTRIBUTION WIDTH 22.6 % 12.0-15.0 H (BEAKER) (test code = 412) PLATELET COUNT (BEAKER) (test 389 K/CU MM 150-430 code = 756) MEAN PLATELET VOLUME (BEAKER) 9.0 fL 6.0-11.5 (test code = 754) NUCLEATED RED BLOOD CELLS 0 /100 WBC 0-0 (BEAKER) (test code = 413) NEUTROPHILS RELATIVE PERCENT 57 % (BEAKER) (test code = 429) LYMPHOCYTES RELATIVE PERCENT 28 % (BEAKER) (test code = 430) MONOCYTES RELATIVE PERCENT 10 % (BEAKER) (test code = 431) EOSINOPHILS RELATIVE PERCENT 3 % (BEAKER) (test code = 432) BASOPHILS RELATIVE PERCENT 2 % (BEAKER) (test code = 437) NEUTROPHILS ABSOLUTE COUNT 3.22 K/ L 1.80-8.00 (BEAKER) (test code = 670) LYMPHOCYTES ABSOLUTE COUNT 1.61 K/ L 1.48-4.50 (BEAKER) (test code = 414) MONOCYTES ABSOLUTE COUNT (BEAKER) 0.56 K/ L 0.00-1.30 (test code = 415) EOSINOPHILS ABSOLUTE COUNT 0.15 K/ L 0.00-0.50 (BEAKER) (test code = 416) BASOPHILS ABSOLUTE COUNT (BEAKER) 0.09 K/ L 0.00-0.20 (test code = 417) IMMATURE GRANULOCYTES-RELATIVE 1 % 0-0 H PERCENT (BEAKER) (test code = 2801) (MANUAL DIFFERENTIAL)2020-11-18 05:28:00 Test Item Value Reference Range Interpretation Comments TOTAL COUNTED (BEAKER) (test code = 1351) WBC MORPHOLOGY (BEAKER) (test Normal code = 487) PLT MORPHOLOGY (BEAKER) (test Normal code = 486) ANISOCYTOSIS (BEAKER) (test code 2+ moderate = 961) ELLIPTOCYTES (BEAKER) (test code 1+ few = 962) HYPOCHROMIA (BEAKER) (test code = 1+ few 963) OVALOCYTES (BEAKER) (test code = 1+ few 477) POCT-GLUCOSE [id number] 05:18:00 Test Item Value Reference Range Interpretation Comments POC-GLUCOSE METER 130 mg/dL 70-110 H : TESTED A T [facility] (BEAKER) (test code [address], = 1538) [facility] 7[address] 0: Technical Healthcare Consultant/Techni michael ID = [id number] for Yannick Stubbs BASIC METABOLIC [id number] 04:20:00 Test Item Value Reference Range Interpretation Comments SODIUM (BEAKER) 141 meq/L 135-148 (test code = 381) POTASSIUM (BEAKER) 4.1 meq/L 3.6-5.5 (test code = 379) CHLORIDE (BEAKER) 107 meq/L 98-106 H (test code = 382) CO2 (BEAKER) (test 24 meq/L 20-29 code = 355) BLOOD UREA NITROGEN 17 mg/dL 10-26 (BEAKER) (test code = 354) CREATININE (BEAKER) 1.19 mg/dL 0.50-1.20 (test code = 358) GLUCOSE RANDOM 140 mg/dL 70-110 H (BEAKER) (test code = 652) CALCIUM (BEAKER) 8.3 mg/dL 8.5-10.5 L (test code = 697) EGFR (BEAKER) (test 60 mL/min/1.73 ESTIMA RUKHSANA GFR IS code = 1092) sq m NOT ACCURATE CREATININE CLEARANCE IN PREDICTING GLOMERULAR FILTRATION RATE . ESTIMATED GFR I S NOT APPLICABLE FOR DIALYSIS PATIEN TS. Technical Healthcare Consultant ID - [id number] 04:20:00 Test Item Value Reference Range Interpretation Comments MAGNESIUM (BEAKER) (test code = 2.2 mg/dL 1.5-3.0 627) Technical Healthcare Consultant ID - [id number] 04:20:00 Test Item Value Reference Range Interpretation Comments PHOSPHORUS (BEAKER) (test code = 2.5 mg/dL 2.5-4.5 604) Technical Healthcare Consultant ID - KAVITAPOCT-GLUCOSE [id number] 20:16:00 Test Item Value Reference Range Interpretation Comments POC-GLUCOSE METER 141 mg/dL 70-110 H : TESTED A T [facility] (BEAKER) (test code [address], = 1538) [place] [id number] 0: Technical Healthcare Consultant/Techni michael ID = [id number] for Yannick Stubbs POCT-GLUCOSE [id number] 17:09:00 Test Item Value Reference Range Interpretation Comments POC-GLUCOSE METER 176 mg/dL 70-110 H : TESTED A T [facility] (BEAKER) (test code [address], = 1538) [place] [address] 0: Technical Healthcare Consultant/Techni michael ID = [id number] for Terrance Seaman BODY FLUID CULTURE + GRAM [id number] 12:57:00 Test Item Value Reference Range Interpretation Comments CULTURE (BEAKER) (test No growth code = 1095) GRAM STAIN RESULT <1+ White blood cells (BEAKER) (test code = seen 1123) GRAM STAIN RESULT No organisms seen (BEAKER) (test code = 55124) POCT-GLUCOSE [id number] 11:04:00 Test Item Value Reference Range Interpretation Comments POC-GLUCOSE METER 117 mg/dL 70-110 H : TESTED A T [facility] (BEAKER) (test code [address], = 1538) [place] [address] 0: Technical Healthcare Consultant/Techni michael ID = [id number] for Terrance Seaman RAD, CHEST, 1 VIEW, NON [id number] 08:03:00Reason for exam:- >PneumoniaShould this be performed at the bedside?->Yes [facility] : 1945 Sex: MFINAL REPORT Chest AP portable erect COMPARISON STUDY: 11/15/2020 H istory provided: Pneumonia Small pleural effusion remains on the right with atelectatic changes in the right lower lobe. Left lung remains clear. Normal heart size and vascularity. Signed: Richard MontielMDReport Verified Date/Time: 11/17/2020 08:03:31 Reading Location: [facility] Imaging ReadingRoom - [facility] 1.310.12 POCT-GLUCOSE [id number] 06:10:00 Test Item Value Reference Range Interpretation Comments POC-GLUCOSE METER 114 mg/dL 70-110 H : TESTED A T [facility] (BEAKER) (test code [address], = 1538) [facility] [address] 0: Technical Healthcare Consultant/Techni michael ID = [id number] for Queenie Worthington CBC W/PLT COUNT & AUTO [id number] 06:05:00 Test Item Value Reference Range Interpretation Comments WHITE BLOOD CELL COUNT (BEAKER) 6.3 K/ L 4.0-10.0 (test code = 775) RED BLOOD CELL COUNT (BEAKER) 2.49 M/ L 4.20-5.80 L (test code = 761) HEMOGLOBIN (BEAKER) (test code = 7.3 GM/DL 13.0-16.8 L 410) HEMATOCRIT (BEAKER) (test code = 24.6 % 36.0-50.0 L 411) MEAN CORPUSCULAR VOLUME (BEAKER) 98.8 fL 82.0-99.0 (test code = 753) MEAN CORPUSCULAR HEMOGLOBIN 29.3 pg 27.0-33.0 (BEAKER) (test code = 751) MEAN CORPUSCULAR HEMOGLOBIN CONC 29.7 GM/DL 32.0-36.0 L (BEAKER) (test code = 752) RED CELL DISTRIBUTION WIDTH 23.8 % 12.0-15.0 H (BEAKER) (test code = 412) PLATELET COUNT (BEAKER) (test 410 K/CU MM 150-430 code = 756) MEAN PLATELET VOLUME (BEAKER) 8.9 fL 6.0-11.5 (test code = 754) NUCLEATED RED BLOOD CELLS 0 /100 WBC 0-0 (BEAKER) (test code = 413) NEUTROPHILS RELATIVE PERCENT 61 % (BEAKER) (test code = 429) LYMPHOCYTES RELATIVE PERCENT 23 % (BEAKER) (test code = 430) MONOCYTES RELATIVE PERCENT 10 % (BEAKER) (test code = 431) EOSINOPHILS RELATIVE PERCENT 4 % (BEAKER) (test code = 432) BASOPHILS RELATIVE PERCENT 1 % (BEAKER) (test code = 437) NEUTROPHILS ABSOLUTE COUNT 3.84 K/ L 1.80-8.00 (BEAKER) (test code = 670) LYMPHOCYTES ABSOLUTE COUNT 1.46 K/ L 1.48-4.50 L (BEAKER) (test code = 414) MONOCYTES ABSOLUTE COUNT (BEAKER) 0.60 K/ L 0.00-1.30 (test code = 415) EOSINOPHILS ABSOLUTE COUNT 0.28 K/ L 0.00-0.50 (BEAKER) (test code = 416) BASOPHILS ABSOLUTE COUNT (BEAKER) 0.09 K/ L 0.00-0.20 (test code = 417) IMMATURE GRANULOCYTES-RELATIVE 1 % 0-0 H PERCENT (BEAKER) (test code = 2801) (MANUAL DIFFERENTIAL)2020-11-17 06:05:00 Test Item Value Reference Range Interpretation Comments TOTAL COUNTED (BEAKER) (test code = 1351) WBC MORPHOLOGY (BEAKER) (test Normal code = 487) PLT MORPHOLOGY (BEAKER) (test Normal code = 486) ANISOCYTOSIS (BEAKER) (test code 2+ moderate = 961) HYPOCHROMIA (BEAKER) (test code = 1+ few 963) OVALOCYTES (BEAKER) (test code = 1+ few 477) BASIC METABOLIC [id number] 05:52:00 Test Item Value Reference Range Interpretation Comments SODIUM (BEAKER) 143 meq/L 135-148 (test code = 381) POTASSIUM (BEAKER) 4.2 meq/L 3.6-5.5 (test code = 379) CHLORIDE (BEAKER) 107 meq/L 98-106 H (test code = 382) CO2 (BEAKER) (test 26 meq/L 20-29 code = 355) BLOOD UREA NITROGEN 17 mg/dL 10-26 (BEAKER) (test code = 354) CREATININE (BEAKER) 1.16 mg/dL 0.50-1.20 (test code = 358) GLUCOSE RANDOM 103 mg/dL 70-110 (BEAKER) (test code = 652) CALCIUM (BEAKER) 9.0 mg/dL 8.5-10.5 (test code = 697) EGFR (BEAKER) (test 62 mL/min/1.73 ESTIMA RUKHSANA GFR IS code = 1092) sq m NOT ACCURATE CREATININE CLEARANCE IN PREDICTING GLOMERULAR FILTRATION RATE . ESTIMATED GFR I S NOT APPLICABLE FOR DIALYSIS PATIEN TS. Technical Healthcare Consultant ID - Lisa [id number] 05:52:00 Test Item Value Reference Range Interpretation Comments MAGNESIUM (BEAKER) (test code = 2.2 mg/dL 1.5-3.0 627) Technical Healthcare Consultant ID - Lisa [id number] 05:52:00 Test Item Value Reference Range Interpretation Comments PHOSPHORUS (BEAKER) (test code = 3.1 mg/dL 2.5-4.5 604) Technical Healthcare Consultant ID - Lisa TPOCT-GLUCOSE [id number] 21:25:00 Test Item Value Reference Range Interpretation Comments POC-GLUCOSE METER 133 mg/dL 70-110 H : TESTED A T [facility] (BEAKER) (test code [address], = 1538) [place] [address] 0: Technical Healthcare Consultant/Techni michael ID = [id number] for Reymundo Perry POCT-GLUCOSE [id number] 16:30:00 Test Item Value Reference Range Interpretation Comments POC-GLUCOSE METER 125 mg/dL 70-110 H : TESTED A T [facility] (BEAKER) (test code [address], = 1538) [place] [address] 0: Technical Healthcare Consultant/Techni michael ID = [id number] for Ahmetk cedeno, Ifeyinwa POCT-GLUCOSE [id number] 11:01:00 Test Item Value Reference Range Interpretation Comments POC-GLUCOSE METER 135 mg/dL 70-110 H : TESTED A T [facility] (BEAKER) (test code [address], = 1538) [place] [address] 0: Technical Healthcare Consultant/Techni michael ID = [id number] for Chuk cedeno, Ifeyinwa POCT-GLUCOSE [id number] 06:34:00 Test Item Value Reference Range Interpretation Comments POC-GLUCOSE METER 127 mg/dL 70-110 H : TESTED A T [facility] (BEAKER) (test code [address], = 1538) [place] [address] 0: Technical Healthcare Consultant/Techni michael ID = [id number] for Jannette Anaya BASIC METABOLIC [id number] 04:57:00 Test Item Value Reference Range Interpretation Comments SODIUM (BEAKER) 142 meq/L 135-148 (test code = 381) POTASSIUM (BEAKER) 4.0 meq/L 3.6-5.5 (test code = 379) CHLORIDE (BEAKER) 107 meq/L 98-106 H (test code = 382) CO2 (BEAKER) (test 25 meq/L 20-29 code = 355) BLOOD UREA NITROGEN 17 mg/dL 10-26 (BEAKER) (test code = 354) CREATININE (BEAKER) 1.16 mg/dL 0.50-1.20 (test code = 358) GLUCOSE RANDOM 125 mg/dL 70-110 H (BEAKER) (test code = 652) CALCIUM (BEAKER) 8.8 mg/dL 8.5-10.5 (test code = 697) EGFR (BEAKER) (test 62 mL/min/1.73 ESTIMA RUKHSANA GFR IS code = 1092) sq m NOT ACCURATE CREATININE CLEARANCE IN PREDICTING GLOMERULAR FILTRATION RATE . ESTIMATED GFR I S NOT APPLICABLE FOR DIALYSIS PATIEN TS. Technical Healthcare Consultant ID - [id number] 04:57:00 Test Item Value Reference Range Interpretation Comments MAGNESIUM (BEAKER) (test code = 2.2 mg/dL 1.5-3.0 627) Technical Healthcare Consultant ID - [id number] 04:57:00 Test Item Value Reference Range Interpretation Comments PHOSPHORUS (BEAKER) (test code = 3.1 mg/dL 2.5-4.5 604) Technical Healthcare Consultant ID - KAVITACBC W/PLT COUNT & AUTO [id number] 04:54:00 Test Item Value Reference Range Interpretation Comments WHITE BLOOD CELL COUNT (BEAKER) 5.9 K/ L 4.0-10.0 (test code = 775) RED BLOOD CELL COUNT (BEAKER) 2.59 M/ L 4.20-5.80 L (test code = 761) HEMOGLOBIN (BEAKER) (test code = 7.5 GM/DL 13.0-16.8 L 410) HEMATOCRIT (BEAKER) (test code = 25.4 % 36.0-50.0 L 411) MEAN CORPUSCULAR VOLUME (BEAKER) 98.1 fL 82.0-99.0 (test code = 753) MEAN CORPUSCULAR HEMOGLOBIN 29.0 pg 27.0-33.0 (BEAKER) (test code = 751) MEAN CORPUSCULAR HEMOGLOBIN CONC 29.5 GM/DL 32.0-36.0 L (BEAKER) (test code = 752) RED CELL DISTRIBUTION WIDTH 24.2 % 12.0-15.0 H (BEAKER) (test code = 412) PLATELET COUNT (BEAKER) (test 378 K/CU MM 150-430 code = 756) MEAN PLATELET VOLUME (BEAKER) 8.9 fL 6.0-11.5 (test code = 754) NUCLEATED RED BLOOD CELLS 0 /100 WBC 0-0 (BEAKER) (test code = 413) NEUTROPHILS RELATIVE PERCENT 60 % (BEAKER) (test code = 429) LYMPHOCYTES RELATIVE PERCENT 24 % (BEAKER) (test code = 430) MONOCYTES RELATIVE PERCENT 9 % (BEAKER) (test code = 431) EOSINOPHILS RELATIVE PERCENT 5 % (BEAKER) (test code = 432) BASOPHILS RELATIVE PERCENT 1 % (BEAKER) (test code = 437) NEUTROPHILS ABSOLUTE COUNT 3.54 K/ L 1.80-8.00 (BEAKER) (test code = 670) LYMPHOCYTES ABSOLUTE COUNT 1.44 K/ L 1.48-4.50 L (BEAKER) (test code = 414) MONOCYTES ABSOLUTE COUNT (BEAKER) 0.50 K/ L 0.00-1.30 (test code = 415) EOSINOPHILS ABSOLUTE COUNT 0.29 K/ L 0.00-0.50 (BEAKER) (test code = 416) BASOPHILS ABSOLUTE COUNT (BEAKER) 0.07 K/ L 0.00-0.20 (test code = 417) IMMATURE GRANULOCYTES-RELATIVE 1 % 0-0 H PERCENT (BEAKER) (test code = 2801) POCT-GLUCOSE [id number] 20:29:00 Test Item Value Reference Range Interpretation Comments POC-GLUCOSE METER 148 mg/dL 70-110 H : TESTED A T [facility] (BEAKER) (test code [address], = 1538) [facility] 7[address] 0: Technical Healthcare Consultant/Techni michael ID = [id number] for Roxane pollyJannette POCT-GLUCOSE [id number] 17:39:00 Test Item Value Reference Range Interpretation Comments POC-GLUCOSE METER 126 mg/dL 70-110 H : TESTED A T [facility] (BEAKER) (test code [address], = 1538) [place] [address] 0: Technical Healthcare Consultant/Techni michael ID = [id number] for Terrance Seaman HEMOGLOBIN AND [id number] 14:26:00 Test Item Value Reference Range Interpretation Comments HEMOGLOBIN (BEAKER) (test code = 8.6 GM/DL 13.0-16.8 L 410) HEMATOCRIT (BEAKER) (test code = 28.2 % 36.0-50.0 L 411) POCT-GLUCOSE [id number] 12:53:00 Test Item Value Reference Range Interpretation Comments POC-GLUCOSE METER 117 mg/dL 70-110 H : TESTED A T [facility] (BEAKER) (test code [address], = 1538) [place] [address] 0: Technical Healthcare Consultant/Techni michael ID = [id number] for Rosemary Gracia BODY FLUID CELL COUNT WITH [id number] 09:25:00 Test Item Value Reference Range Interpretation Comments APPEARANCE FLUID Bloody Clear A (BEAKER) (test code = 510) COLOR FLUID Red Colorless, Straw A (BEAKER) (test code = 511) RBC FLUID (BEAKER) 76634 /cu mm See_Comment H [Automat ed (test code = 513) message] T he system which generated this result transmit rukhsana reference range : <=1. The refere nce range was not u sed to interpret th is result as normal/abnormal . ADJUSTED WBC FLUID 615 /cu mm See_Comment H [Automat ed (BEAKER) (test code message] The = 1691) system which generated this result transmit rukhsana reference range : <=5. The refere nce range was not u sed to interpret th is result as normal/abnormal . LINING CELLS 0 /cu mm See_Comment [Automated (BEAKER) (test code message] The = 1590) system which generated this result transmit rukhsana reference range : <=1. The refere nce range was not u sed to interpret th is result as normal/abnormal . NEUTROPHILS FLUID 91 % (BEAKER) (test code = 1656) LYMPHS FLUID 5 % (BEAKER) (test code = 488) MONO/MACROPHAGE 4 % FLUID (BEAKER) (test code = 489) EOSINOPHILS FLUID 0 % (BEAKER) (test code = 491) BASO FLUID (BEAKER) 0 % (test code = 492) [id number] Da Perez, 0 (BEAKER) (test M.D. (electronic code = 2620) signature) CONTAINER BODY [employer] FLUID (BEAKER) (test code = 2873) RAD, CHEST, 1 VIEW, NON [id number] 08:05:00Reason for exam:- >PneumoniaShould this be performed at the bedside?->Yes [facility] 1945 Sex: MFINAL REPORT CHEST AP PORTABLE Comparison exam: 11/14/2020 History provided: Pneumonia Heart size normal. Small residual pleural effusion on the right remains with associated atelectatic changes. Left lung clear. Normal vascularity. Signed: Richard Montiel Verified Date/Time: 11/15/2020 08:05:31 Reading Location: [facility] Diagnostic Imaging Reading Room - [facility] 1 .310.12 -GLUCOSE [id number] 06:03:00 Test Item Value Reference Range Interpretation Comments POC-GLUCOSE METER 115 mg/dL 70-110 H : TESTED A T [facility] (BEAKER) (test code [address], = 1538) [facility] 2901 0: Technical Healthcare Consultant/Techni michael ID = [id number] for Saravanan vaughn Marissa CBC W/PLT COUNT & AUTO [id number] 04:31:00 Test Item Value Reference Range Interpretation Comments WHITE BLOOD CELL COUNT (BEAKER) 6.7 K/ L 4.0-10.0 (test code = 775) RED BLOOD CELL COUNT (BEAKER) 2.60 M/ L 4.20-5.80 L (test code = 761) HEMOGLOBIN (BEAKER) (test code = 7.7 GM/DL 13.0-16.8 L 410) HEMATOCRIT (BEAKER) (test code = 24.9 % 36.0-50.0 L 411) MEAN CORPUSCULAR VOLUME (BEAKER) 95.8 fL 82.0-99.0 (test code = 753) MEAN CORPUSCULAR HEMOGLOBIN 29.6 pg 27.0-33.0 (BEAKER) (test code = 751) MEAN CORPUSCULAR HEMOGLOBIN CONC 30.9 GM/DL 32.0-36.0 L (BEAKER) (test code = 752) RED CELL DISTRIBUTION WIDTH 24.3 % 12.0-15.0 H (BEAKER) (test code = 412) PLATELET COUNT (BEAKER) (test 354 K/CU MM 150-430 code = 756) MEAN PLATELET VOLUME (BEAKER) 8.6 fL 6.0-11.5 (test code = 754) NUCLEATED RED BLOOD CELLS 0 /100 WBC 0-0 (BEAKER) (test code = 413) NEUTROPHILS RELATIVE PERCENT 62 % (BEAKER) (test code = 429) LYMPHOCYTES RELATIVE PERCENT 27 % (BEAKER) (test code = 430) MONOCYTES RELATIVE PERCENT 6 % (BEAKER) (test code = 431) EOSINOPHILS RELATIVE PERCENT 3 % (BEAKER) (test code = 432) BASOPHILS RELATIVE PERCENT 1 % (BEAKER) (test code = 437) NEUTROPHILS ABSOLUTE COUNT 4.12 K/ L 1.80-8.00 (BEAKER) (test code = 670) LYMPHOCYTES ABSOLUTE COUNT 1.82 K/ L 1.48-4.50 (BEAKER) (test code = 414) MONOCYTES ABSOLUTE COUNT (BEAKER) 0.41 K/ L 0.00-1.30 (test code = 415) EOSINOPHILS ABSOLUTE COUNT 0.21 K/ L 0.00-0.50 (BEAKER) (test code = 416) BASOPHILS ABSOLUTE COUNT (BEAKER) 0.09 K/ L 0.00-0.20 (test code = 417) IMMATURE GRANULOCYTES-RELATIVE 1 % 0-0 H PERCENT (BEAKER) (test code = 4601) (MANUAL DIFFERENTIAL)2020-11-15 04:31:00 Test Item Value Reference Range Interpretation Comments TOTAL COUNTED (BEAKER) (test code = 1351) WBC MORPHOLOGY (BEAKER) (test code = Normal 487) PLT MORPHOLOGY (BEAKER) (test code = Normal 486) ANISOCYTOSIS (BEAKER) (test code = 3+ many 961) ELLIPTOCYTES (BEAKER) (test code = 1+ few 962) HYPOCHROMIA (BEAKER) (test code = 1+ few 963) POIKILOCYTES (BEAKER) (test code = 1+ few 966) SPHEROCYTES (BEAKER) (test code = 1+ few 768) BASIC METABOLIC [id number] 04:13:00 Test Item Value Reference Range Interpretation Comments SODIUM (BEAKER) 140 meq/L 135-148 (test code = 381) POTASSIUM (BEAKER) 3.6 meq/L 3.6-5.5 (test code = 379) CHLORIDE (BEAKER) 107 meq/L 98-106 H (test code = 382) CO2 (BEAKER) (test 23 meq/L 20-29 code = 355) BLOOD UREA NITROGEN 16 mg/dL 10-26 (BEAKER) (test code = 354) CREATININE (BEAKER) 1.13 mg/dL 0.50-1.20 (test code = 358) GLUCOSE RANDOM 122 mg/dL 70-110 H (BEAKER) (test code = 652) CALCIUM (BEAKER) 8.5 mg/dL 8.5-10.5 (test code = 697) EGFR (BEAKER) (test 64 mL/min/1.73 ESTIMA RUKHSANA GFR IS code = 1092) sq m NOT ACCURATE CREATININE CLEARANCE IN PREDICTING GLOMERULAR FILTRATION RATE . ESTIMATED GFR I S NOT APPLICABLE FOR DIALYSIS PATIEN TS. Technical Healthcare Consultant ID - [id number] 22:11:00 Test Item Value Reference Range Interpretation Comments POC-GLUCOSE METER 125 mg/dL 70-110 H : TESTED A T [facility] (BEAKER) (test code [address], = 1538) [place] [address]: Technical Healthcare Consultant/Techni michael ID = [id number] for Padi lla, [place] PROTEIN, BODY [id number] 21:04:00 Test Item Value Reference Range Interpretation Comments PROTEIN FLUID (BEAKER) 4.5 g/dL Light's criteria identifies (test code = 579) effusions if one or more are pre Absence of reference range indicates that normals have not been defined.Assay performance has not been validated for this type of specimen.Technical Healthcare Consultant ID - [id number] DEHYDROGENASE (LDH), BODY [id number] 21:00:00 Test Item Value Reference Range Interpretation Comments LACTATE DEHYDROGENASE FLUID 685 U/L Light's criteria (BEAKER) (test code = 634) identifies effusions if one or more are pre Absence of reference range indicates that normals have not been defined.Assay performance has not been validated for this type of specimen.Technical Healthcare Consultant ID - [id number] 17:29:00 Test Item Value Reference Range Interpretation Comments POC-GLUCOSE METER 241 mg/dL 70-110 H : TESTED A T [facility] (BEAKER) (test code [address], = 1538) [place] [address] 0: Technical Healthcare Consultant/Techni michael ID = [id number] for [facility] POCT-GLUCOSE [id number] 16:32:00 Test Item Value Reference Range Interpretation Comments POC-GLUCOSE METER 116 mg/dL 70-110 H : TESTED A T [facility] (BEAKER) (test code [address], = 1538) [place] [address]: Technical Healthcare Consultant/Techni michael ID = [id number] for Davidson Edwards RAD, CHEST, 1 VIEW, NON [id number] 16:04:00Reason for exam:->Post Right ThoracentesisShould this be performed at the bedside?->Yes [facility] 1945 Sex: MFINAL REPORT CHEST AP PORTABLE ERECT COMPARISON STUDY: 11/13/2020 H istory provided: Status post right thoracentesis Diminished volume of pleural fluid on the right following thoracentesis. No pneumothorax. Continued atelectatic changes within the right lower lobe. Left lung clear. Signed: Richard Montielort Verified Date/Time: 11/14/2020 16:04:07 Reading Location: [facility] Diagnostic Imaging Reading Room - [facility] 1.310.12 U/S, [id number] 15:58:00 Laterality?->RightReason for exam:->pleural effusionLabs to be Ordered:- >Other (please add comment) [facility] : 1945 Sex: MFINAL REPORT ULTRASOUND GUIDED RIGHT THORACENTESIS History provided: Right pleural effusion PROCEDURE: Written informed consent was obtained. The chest was examined with ultrasound and a suitable site for thoracentesis was identified in the right hemithorax. The skin over this area was prepped and draped in sterile fashion. Lidocaine 2% was used for local anesthesia. With ultrasound guidance, the pleural space was accessed with a one-stick 5 [place] sheathed needle. Approximately 500 cc of yellow, clear fluid was aspirated. The catheter was removed and a sterile dressing was applied. The patient tolerated the procedure well without apparent complications. The fluid was submitted to the laboratory as requested. IMPRESSION: Uneventful ultrasound guided thoracentesis. Signed: Richard Montiel Verified Date/Time: 11/14/2020 15:58:23 Reading Location: [facility] Diagnostic Imaging Reading Room - [facility] 1.310.12 C METABOLIC [id number] 05:24:00 Test Item Value Reference Range Interpretation Comments SODIUM (BEAKER) 139 meq/L 135-148 (test code = 381) POTASSIUM (BEAKER) 3.9 meq/L 3.6-5.5 (test code = 379) CHLORIDE (BEAKER) 104 meq/L 98-106 (test code = 382) CO2 (BEAKER) (test 23 meq/L 20-29 code = 355) BLOOD UREA NITROGEN 21 mg/dL 10-26 (BEAKER) (test code = 354) CREATININE (BEAKER) 1.36 mg/dL 0.50-1.20 H (test code = 358) GLUCOSE RANDOM 130 mg/dL 70-110 H (BEAKER) (test code = 652) CALCIUM (BEAKER) 9.0 mg/dL 8.5-10.5 (test code = 697) EGFR (BEAKER) (test 51 mL/min/1.73 ESTIMA RUKHSANA GFR IS code = 1092) sq m NOT ACCURATE CREATININE CLEARANCE IN PREDICTING GLOMERULAR FILTRATION RATE . ESTIMATED GFR I S NOT APPLICABLE FOR DIALYSIS PATIEN TS. Technical Healthcare Consultant ID - [id number] W/PLT COUNT & AUTO [id number] 05:13:00 Test Item Value Reference Range Interpretation Comments WHITE BLOOD CELL COUNT (BEAKER) 8.2 K/ L 4.0-10.0 (test code = 775) RED BLOOD CELL COUNT (BEAKER) 2.88 M/ L 4.20-5.80 L (test code = 761) HEMOGLOBIN (BEAKER) (test code = 8.5 GM/DL 13.0-16.8 L 410) HEMATOCRIT (BEAKER) (test code = 28.0 % 36.0-50.0 L 411) MEAN CORPUSCULAR VOLUME (BEAKER) 97.2 fL 82.0-99.0 (test code = 753) MEAN CORPUSCULAR HEMOGLOBIN 29.5 pg 27.0-33.0 (BEAKER) (test code = 751) MEAN CORPUSCULAR HEMOGLOBIN CONC 30.4 GM/DL 32.0-36.0 L (BEAKER) (test code = 752) RED CELL DISTRIBUTION WIDTH 24.3 % 12.0-15.0 H (BEAKER) (test code = 412) PLATELET COUNT (BEAKER) (test 424 K/CU MM 150-430 code = 756) MEAN PLATELET VOLUME (BEAKER) 9.1 fL 6.0-11.5 (test code = 754) NUCLEATED RED BLOOD CELLS 0 /100 WBC 0-0 (BEAKER) (test code = 413) NEUTROPHILS RELATIVE PERCENT 76 % (BEAKER) (test code = 429) LYMPHOCYTES RELATIVE PERCENT 15 % (BEAKER) (test code = 430) MONOCYTES RELATIVE PERCENT 4 % (BEAKER) (test code = 431) EOSINOPHILS RELATIVE PERCENT 3 % (BEAKER) (test code = 432) BASOPHILS RELATIVE PERCENT 1 % (BEAKER) (test code = 437) NEUTROPHILS ABSOLUTE COUNT 6.16 K/ L 1.80-8.00 (BEAKER) (test code = 670) LYMPHOCYTES ABSOLUTE COUNT 1.25 K/ L 1.48-4.50 L (BEAKER) (test code = 414) MONOCYTES ABSOLUTE COUNT (BEAKER) 0.35 K/ L 0.00-1.30 (test code = 415) EOSINOPHILS ABSOLUTE COUNT 0.23 K/ L 0.00-0.50 (BEAKER) (test code = 416) BASOPHILS ABSOLUTE COUNT (BEAKER) 0.09 K/ L 0.00-0.20 (test code = 417) IMMATURE GRANULOCYTES-RELATIVE 1 % 0-0 H PERCENT (BEAKER) (test code = 2801) POCT-GLUCOSE [id number] 20:54:00 Test Item Value Reference Range Interpretation Comments POC-GLUCOSE METER 144 mg/dL 70-110 H : TESTED A T [facility] (BEAKER) (test code [address], = 1538) [place] [address]: Technical Healthcare Consultant/Techni michael ID = [id number] for Faith Vital [id number] 08:49:00 Test Item Value Reference Range Interpretation Comments MAGNESIUM (BEAKER) (test code = 2.4 mg/dL 1.5-3.0 627) Technical Healthcare Consultant ID - NLYLERAD, CHEST, 1 VIEW, NON [id number] 08:46:00Reason for exam:->Right Thoracentesis has been ordered. Dx: PneumoniaShould this be performed at the bedside?->Yes [facility] : 1945 Sex: MFINAL REPORT Chest AP portable erect COMPARISON STUDY: 10/15/2020 H istory provided: Pleural effusion Small pleural effusion on the right with right basilar atelectasis. Left lung clear. Normal heart size and vascularity. Signed: Richard Montiel MDReport Verified Date/Time: 11/13/2020 08:46:48 Reading Location: [facility] Diagnostic Imaging Reading Room [place] [address] 1.310.12 TROPONIN [id number] 06:38:00 Test Item Value Reference Range Interpretation Comments TROPONIN I (BEAKER) (test code = 0.22 ng/mL 0.00-0.03 [facility]) Troponin I (TnI) levels must be interpreted [...] failure, acidosis, acute neurological disease, and persistent tachyarrhythmia.Technical Healthcare Consultant ID - [id number] W/PLT COUNT & AUTO [id number] 04:12:00 Test Item Value Reference Range Interpretation Comments WHITE BLOOD CELL COUNT (BEAKER) 9.2 K/ L 4.0-10.0 (test code = 775) RED BLOOD CELL COUNT (BEAKER) 2.62 M/ L 4.20-5.80 L (test code = 761) HEMOGLOBIN (BEAKER) (test code = 7.8 GM/DL 13.0-16.8 L 410) HEMATOCRIT (BEAKER) (test code = 26.0 % 36.0-50.0 L 411) MEAN CORPUSCULAR VOLUME (BEAKER) 99.2 fL 82.0-99.0 H (test code = 753) MEAN CORPUSCULAR HEMOGLOBIN 29.8 pg 27.0-33.0 (BEAKER) (test code = 751) MEAN CORPUSCULAR HEMOGLOBIN CONC 30.0 GM/DL 32.0-36.0 L (BEAKER) (test code = 752) RED CELL DISTRIBUTION WIDTH 25.1 % 12.0-15.0 H (BEAKER) (test code = 412) PLATELET COUNT (BEAKER) (test 325 K/CU MM 150-430 code = 756) MEAN PLATELET VOLUME (BEAKER) 9.0 fL 6.0-11.5 (test code = 754) NUCLEATED RED BLOOD CELLS 0 /100 WBC 0-0 (BEAKER) (test code = 413) NEUTROPHILS RELATIVE PERCENT 73 % (BEAKER) (test code = 429) LYMPHOCYTES RELATIVE PERCENT 18 % (BEAKER) (test code = 430) MONOCYTES RELATIVE PERCENT 6 % (BEAKER) (test code = 431) EOSINOPHILS RELATIVE PERCENT 2 % (BEAKER) (test code = 432) BASOPHILS RELATIVE PERCENT 1 % (BEAKER) (test code = 437) NEUTROPHILS ABSOLUTE COUNT 6.73 K/ L 1.80-8.00 (BEAKER) (test code = 670) LYMPHOCYTES ABSOLUTE COUNT 1.62 K/ L 1.48-4.50 (BEAKER) (test code = 414) MONOCYTES ABSOLUTE COUNT (BEAKER) 0.54 K/ L 0.00-1.30 (test code = 415) EOSINOPHILS ABSOLUTE COUNT 0.16 K/ L 0.00-0.50 (BEAKER) (test code = 416) BASOPHILS ABSOLUTE COUNT (BEAKER) 0.08 K/ L 0.00-0.20 (test code = 417) IMMATURE GRANULOCYTES-RELATIVE 1 % 0-0 H PERCENT (BEAKER) (test code = 2801) (MANUAL DIFFERENTIAL)2020-11-13 04:12:00 Test Item Value Reference Range Interpretation Comments TOTAL COUNTED (BEAKER) (test code = 1351) WBC MORPHOLOGY (BEAKER) (test code = Normal 487) PLT MORPHOLOGY (BEAKER) (test code = Normal 486) ANISOCYTOSIS (BEAKER) (test code = 3+ many 961) ELLIPTOCYTES (BEAKER) (test code = 1+ few 962) HYPOCHROMIA (BEAKER) (test code = 1+ few 963) POIKILOCYTES (BEAKER) (test code = 1+ few 966) POLYCHROMATOPHILLIC RBCS(BEAKER) 1+ few (test code = 478) LIPID [id number] 04:11:00 Test Item Value Reference Range Interpretation Comments TRIGLYCERIDES (BEAKER) (test code = 171 mg/dL 540) CHOLESTEROL (BEAKER) (test code = 73 mg/dL 631) HDL CHOLESTEROL (BEAKER) (test code 11 mg/dL = 976) LDL CHOLESTEROL CALCULATED (BEAKER) 28 mg/dL (test code = 633) Triglyceride Reference Range: Low Risk <150 Borderline 150-199 High Risk 200-499 Very High Risk >=500Cholesterol Reference Range: Low Risk <200 Borderline 200-239 High Risk >240HDL Cholesterol Reference Range: Low Risk >=60 High Risk <40LDL Cholesterol Reference Range: Optimal <100 Near Optimal 100-129 Borderline 130-159 High 160-189 Very High >=190 Technical Healthcare Consultant ID - [id number] METABOLIC [id number] 04:06:00 Test Item Value Reference Range Interpretation Comments SODIUM (BEAKER) 140 meq/L 135-148 (test code = 381) POTASSIUM (BEAKER) 4.9 meq/L 3.6-5.5 (test code = 379) CHLORIDE (BEAKER) 110 meq/L 98-106 H (test code = 382) CO2 (BEAKER) (test 22 meq/L 20-29 code = 355) BLOOD UREA NITROGEN 23 mg/dL 10-26 (BEAKER) (test code = 354) CREATININE (BEAKER) 1.17 mg/dL 0.50-1.20 (test code = 358) GLUCOSE RANDOM 118 mg/dL 70-110 H (BEAKER) (test code = 652) CALCIUM (BEAKER) 8.2 mg/dL 8.5-10.5 L (test code = 697) EGFR (BEAKER) (test 61 mL/min/1.73 ESTIMA RUKHSANA GFR IS code = 1092) sq m NOT ACCURATE CREATININE CLEARANCE IN PREDICTING GLOMERULAR FILTRATION RATE . ESTIMATED GFR I S NOT APPLICABLE FOR DIALYSIS PATIEN TS. Technical Healthcare Consultant ID - [id number] 00:39:00 Test Item Value Reference Range Interpretation Comments TROPONIN I (BEAKER) (test code = 0.26 ng/mL 0.00-0.03 397) Troponin I (TnI) levels [...] failure, acidosis, acute neurological disease, and persistent tachyarrhythmia.Technical Healthcare Consultant ID - [id number] TIME/INR 2020-11-13 00:24:00 Test Item Value Reference Range Interpretation Comments PROTIME (BEAKER) 11.8 seconds 9.8-12.0 Final Infor mation (test code = 759) (Auto Outp ut) INR (BEAKER) (test 1.10 See_Comment Final Inf ormation code = 370) (Auto Output) [Automated mess age] The system [employer] generated this result transmitted ref erence range: <=5.90. The reference range was not used to int erpret this result as normal/abnormal . RECOMMENDED COUMADIN/WARFARIN INR THERAPY RANGESSTANDARD DOSE: 2.0 - 3.0 Includes: PROPHYLAXIS forvenous thrombosis, systemic embolization; TREATMENT for venous thrombosis and/or pulmonary embolus.HIGH RISK: Target INR is 2.5-3.5 for patients with mechanical heart valves.TROPONIN [id number] 18:59:00 Test Item Value Reference Range Interpretation Comments TROPONIN I (BEAKER) (test code = 0.26 ng/mL 0.00-0.03 397) Troponin I (TnI) levels [...] failure, acidosis, acute neurological disease, and persistent tachyarrhythmia.Technical Healthcare Consultant ID - BRUCEHEPATIC FUNCTION [id number] 11:48:00 Test Item Value Reference Range Interpretation Comments TOTAL PROTEIN (BEAKER) (test code = 6.1 gm/dL 6.0-8.5 770) ALBUMIN (BEAKER) (test code = 1145) 3.0 g/dL 3.5-5.0 L BILIRUBIN TOTAL (BEAKER) (test code 0.7 mg/dL 0.1-1.2 = 377) BILIRUBIN DIRECT (BEAKER) (test 0.5 mg/dL 0.0-0.4 H code = 706) ALKALINE PHOSPHATASE (BEAKER) (test 89 U/L 30-115 code = 346) AST (SGOT) (BEAKER) (test code = 15 U/L 5-40 353) ALT (SGPT) (BEAKER) (test code = 10 U/L 5-50 347) Technical Healthcare Consultant ID - BRUCEBLOOD GAS, [id number] 08:16:00 Test Item Value Reference Range Interpretation Comments PH ARTERIAL (BEAKER) (test code = 7.42 7.35-7.45 383) PCO2 ARTERIAL (BEAKER) (test code 35 mm Hg 35-45 = 384) PO2 ARTERIAL (BEAKER) (test code 189 mm Hg 80-90 H = 385) O2 SATURATION ARTERIAL (BEAKER) 99.3 % 96.0-97.0 H (test code = 386) HCO3 ARTERIAL (BEAKER) (test code 23 mmol/L 21-29 = 388) BASE EXCESS ARTERIAL (BEAKER) -1.6 mmol/L -2.0-3.0 (test code = 387) PATIENT TEMPERATURE (BEAKER) 37.3 (test code = 1818) B-TYPE NATRIURETIC FACTOR (BNP)2020-11-12 07:29:00 Test Item Value Reference Range Interpretation Comments B-TYPE NATRIURETIC PEPTIDE (BEAKER) 489 pg/mL 0-100 H (test code = 700) Technical Healthcare Consultant ID - CHOPZPEARLN [id number] 07:21:00 Test Item Value Reference Range Interpretation Comments TROPONIN I (BEAKER) (test code = 0.20 ng/mL 0.00-0.03 397) Troponin I (TnI) levels [...] failure, acidosis, acute neurological disease, and persistent tachyarrhythmia.Technical Healthcare Consultant ID - CHOPZPOCT-GLUCOSE METER 2020-11-12 07:10:00 Test Item Value Reference Range Interpretation Comments POC-GLUCOSE METER 131 mg/dL 70-110 H : TESTED A T [facility] (BEAKER) (test code [address], = 1538) [facility] [address]: Technical Healthcare Consultant/Techni michael ID = [id number] for Pascual Trejo HEMOGLOBIN [id number] 06:51:00 Test Item Value Reference Range Interpretation Comments HEMOGLOBIN A1C (BEAKER) (test code = 5.7 % 4.3-6.1 368) Technical Healthcare Consultant ID - CHOPZBASIC METABOLIC [id number] 05:07:00 Test Item Value Reference Range Interpretation Comments SODIUM (BEAKER) 138 meq/L 135-148 (test code = 381) POTASSIUM (BEAKER) 4.6 meq/L 3.6-5.5 (test code = 379) CHLORIDE (BEAKER) 108 meq/L 98-106 H (test code = 382) CO2 (BEAKER) (test 22 meq/L 20-29 code = 355) BLOOD UREA NITROGEN 22 mg/dL 10-26 (BEAKER) (test code = 354) CREATININE (BEAKER) 1.22 mg/dL 0.50-1.20 H (test code = 358) GLUCOSE RANDOM 145 mg/dL 70-110 H (BEAKER) (test code = 652) CALCIUM (BEAKER) 8.0 mg/dL 8.5-10.5 L (test code = 697) EGFR (BEAKER) (test 58 mL/min/1.73 ESTIMA RUKHSANA GFR IS code = 1092) sq m NOT ACCURATE CREATININE CLEARANCE IN PREDICTING GLOMERULAR FILTRATION RATE . ESTIMATED GFR I S NOT APPLICABLE FOR DIALYSIS PATIEN TS. Technical Healthcare Consultant ID - CHOPZCBC W/PLT COUNT & AUTO [id number] 05:01:00 Test Item Value Reference Range Interpretation Comments WHITE BLOOD CELL COUNT (BEAKER) 13.8 K/ L 4.0-10.0 H (test code = 775) RED BLOOD CELL COUNT (BEAKER) 2.82 M/ L 4.20-5.80 L (test code = 761) HEMOGLOBIN (BEAKER) (test code = 8.1 GM/DL 13.0-16.8 L 410) HEMATOCRIT (BEAKER) (test code = 26.5 % 36.0-50.0 L 411) MEAN CORPUSCULAR VOLUME (BEAKER) 94.0 fL 82.0-99.0 (test code = 753) MEAN CORPUSCULAR HEMOGLOBIN 28.7 pg 27.0-33.0 (BEAKER) (test code = 751) MEAN CORPUSCULAR HEMOGLOBIN CONC 30.6 GM/DL 32.0-36.0 L (BEAKER) (test code = 752) RED CELL DISTRIBUTION WIDTH 25.2 % 12.0-15.0 H (BEAKER) (test code = 412) PLATELET COUNT (BEAKER) (test 355 K/CU MM 150-430 code = 756) MEAN PLATELET VOLUME (BEAKER) 8.6 fL 6.0-11.5 (test code = 754) NUCLEATED RED BLOOD CELLS 0 /100 WBC 0-0 (BEAKER) (test code = 413) NEUTROPHILS RELATIVE PERCENT 79 % (BEAKER) (test code = 429) LYMPHOCYTES RELATIVE PERCENT 11 % (BEAKER) (test code = 430) MONOCYTES RELATIVE PERCENT 8 % (BEAKER) (test code = 431) EOSINOPHILS RELATIVE PERCENT 1 % (BEAKER) (test code = 432) BASOPHILS RELATIVE PERCENT 1 % (BEAKER) (test code = 437) NEUTROPHILS ABSOLUTE COUNT 10.82 K/ L 1.80-8.00 H (BEAKER) (test code = 670) LYMPHOCYTES ABSOLUTE COUNT 1.44 K/ L 1.48-4.50 L (BEAKER) (test code = 414) MONOCYTES ABSOLUTE COUNT (BEAKER) 1.14 K/ L 0.00-1.30 (test code = 415) EOSINOPHILS ABSOLUTE COUNT 0.09 K/ L 0.00-0.50 (BEAKER) (test code = 416) BASOPHILS ABSOLUTE COUNT (BEAKER) 0.12 K/ L 0.00-0.20 (test code = 417) IMMATURE GRANULOCYTES-RELATIVE 1 % 0-0 H PERCENT (BEAKER) (test code = 2801) POCT-GLUCOSE [id number] 07:49:00 Test Item Value Reference Range Interpretation Comments POC-GLUCOSE METER 90 mg/dL 70-110 : TESTED A T [facility] [address] (BEAKER) (test code = [place], 1538) [address]: Technical Healthcare Consultant/Techni michael ID = [id number] for SHAHRIAR SCHWARZ [id number] 07:11:00 Test Item Value Reference Range Interpretation Comments MAGNESIUM (BEAKER) 2.2 mg/dL 1.6-2.6 Specimen slightly (test code = 627) hemolyzed Technical Healthcare Consultant ID - [id number] 07:11:00 Test Item Value Reference Range Interpretation Comments PHOSPHORUS (BEAKER) 3.8 mg/dL 2.3-4.7 Specimen slightly (test code = 604) hemolyzed Technical Healthcare Consultant ID - DBBASIC METABOLIC [id number] 07:11:00 Test Item Value Reference Range Interpretation [...] S NOT APPLICABLE FOR DIALYSIS PATIEN TS. Technical Healthcare Consultant ID - DBCBC W/PLT COUNT & AUTO [id number] 06:59:00 Test Item Value Reference Range Interpretation [...] H PERCENT (BEAKER) (test code = 2801) BLOOD [id number] 04:00:00 Test Item Value Reference Range Interpretation Comments CULTURE (BEAKER) (test No growth in 5 days code = 1095) BLOOD [id number] 04:00:00 Test Item Value Reference Range Interpretation Comments CULTURE (BEAKER) (test No growth in 5 days code = 1095) POCT-GLUCOSE [id number] 21:20:00 Test Item Value Reference Range Interpretation Comments POC-GLUCOSE METER 171 mg/dL 70-110 H : Notified RN/MD: ([facility]) (test code = TESTED AT [facility] 6720 1538) [facility], [address]: Technical Healthcare Consultant/Techni michael ID = [id number] for ANNAMARIE MARLOW POCT-GLUCOSE [id number] 17:48:00 Test Item Value Reference Range Interpretation Comments POC-GLUCOSE METER 149 mg/dL 70-110 H : TESTED A T [facility] 67[address] ([facility]) (test code = [facility], 1538) [address]: Technical Healthcare Consultant/Techni michael ID = [id number] for SHAHRIAR HANDLEY BODY FLUID CULTURE + GRAM [id number] 13:13:00 Test Item Value Reference Range Interpretation Comments CULTURE ([facility]) (test KLEBSIELLA A 2+ Kl ebsiella code [...] S Sulfamethoxazole (test code = 47) CULTURE (BEAKER) (test ESCHERICHIA COLI A 2 + Escherichia [...] No organisms seen (BEAKER) (test code = 230153) POCT-GLUCOSE [id number] 12:08:00 Test Item Value Reference Range Interpretation Comments POC-GLUCOSE METER 191 mg/dL 70-110 H : TESTED A T [facility] 6720 (AKER) (test code = [facility], 1538) [address]: Technical Healthcare Consultant/Techni michael ID = [id number] for SHAHRIAR HANDLEY HEMOGLOBIN [id number] 08:36:00 Test Item Value Reference Range Interpretation Comments HEMOGLOBIN A1C (BEAKER) (test code = 6.4 % 4.3-6.1 H 368) POCT-GLUCOSE [id number] 08:18:00 Test Item Value Reference Range Interpretation Comments POC-GLUCOSE METER 151 mg/dL 70-110 H : TESTED A T [facility] 6720 ([employer]) (test code = [facility], 1538) [address]: Technical Healthcare Consultant/Techni michael ID = [id number] for MAGALY GARCIA, SHAHRIAR MRSA [id number] 08:18:00 Test Item Value Reference Range Interpretation Comments CULTURE (BEAKER) (test code No MRSA isolated = 1095) [id number] 06:41:00 Test Item Value Reference Range Interpretation Comments MAGNESIUM (BEAKER) (test code = 2.1 mg/dL 1.6-2.6 627) Technical Healthcare Consultant ID - ALBINO [id number] 06:41:00 Test Item Value Reference Range Interpretation Comments PHOSPHORUS (BEAKER) (test code = 3.2 mg/dL 2.3-4.7 604) Technical Healthcare Consultant ID - ALBINO MBASIC METABOLIC [id number] 06:41:00 Test Item Value Reference Range Interpretation [...] S NOT APPLICABLE FOR DIALYSIS PATIEN TS. Technical Healthcare Consultant ID - ALBINO MPOCT-GLUCOSE [id number] 21:12:00 Test Item Value Reference Range Interpretation Comments POC-GLUCOSE METER 135 mg/dL 70-110 H : TESTED A T [facility] 6720 (BEAKER) (test code = [facility] [employer] [facility], 1538) [address]: Technical Healthcare Consultant/Techni michael ID = [id number] for MIGUEL MARLOW POCT-GLUCOSE [id number] 17:00:00 Test Item Value Reference Range Interpretation Comments POC-GLUCOSE METER 140 mg/dL 70-110 H : TESTED A T [facility] 6720 (BEAKER) (test code = [facility] [employer] [facility], 1538) [address]: Technical Healthcare Consultant/Techni michael ID = [id number] for Ca vitt, Eminae POCT-GLUCOSE [id number] 12:23:00 Test Item Value Reference Range Interpretation Comments POC-GLUCOSE METER 189 mg/dL 70-110 H : TESTED A T [facility] 6720 (BEAKER) (test code = [facility]ER [employer] [facility], 1538) [address]: Technical Healthcare Consultant/Techni michael ID = [id number] for Ca vitt, Eminae POCT-GLUCOSE [id number] 07:46:00 Test Item Value Reference Range Interpretation Comments POC-GLUCOSE METER 107 mg/dL 70-110 : TESTED A T [facility] 6720 (BEAKER) (test code = [facility] [employer] [facility], 1538) [address]: Technical Healthcare Consultant/Techni michael ID = [id number] for Ca vitt, Eminae HIV-1 ANTIGEN WITH HIV-1/2 [id number] 06:57:00 Test Item Value Reference Range Interpretation Comments HIV-1 ANTIGEN WITH HIV 1\T\2 Nonreactive Nonreactive ANTIBODY (2) (BEAKER) (test code = 2586) Technical Healthcare Consultant ID - BSBASIC METABOLIC [id number] 06:46:00 Test Item Value Reference Range Interpretation [...] S NOT APPLICABLE FOR DIALYSIS PATIEN TS. Technical Healthcare Consultant ID - [id number] 06:46:00 Test Item Value Reference Range Interpretation Comments MAGNESIUM (BEAKER) (test code = 2.1 mg/dL 1.6-2.6 627) Technical Healthcare Consultant ID - [id number] 06:46:00 Test Item Value Reference Range Interpretation Comments PHOSPHORUS (BEAKER) (test code = 2.6 mg/dL 2.3-4.7 604) Technical Healthcare Consultant ID - BSCBC W/PLT COUNT & AUTO [id number] 06:42:00 Test Item Value Reference Range Interpretation [...] PERCENT (BEAKER) (test code = 2801) POCT-GLUCOSE [id number] 21:42:00 Test Item Value Reference Range Interpretation Comments POC-GLUCOSE METER 118 mg/dL 70-110 H : TESTED A T [facility] 6720 (BEAKER) (test code = [facility], 153) [address]: Technical Healthcare Consultant/Techni michael ID = [id number] for Cr oss, Claysie POCT-GLUCOSE [id number] 17:32:00 Test Item Value Reference Range Interpretation Comments POC-GLUCOSE METER 111 mg/dL 70-110 H : TESTED A T [facility] 6720 (BEAKER) (test code = [facility], 153) [address]: Technical Healthcare Consultant/Techni michael ID = [id number] for An derviolet, Mary POCT-GLUCOSE [id number] 12:21:00 Test Item Value Reference Range Interpretation Comments POC-GLUCOSE METER 140 mg/dL 70-110 H : TESTED A T [facility] 6720 (BEAKER) (test code = [facility], 153) [id number]: Technical Healthcare Consultant/Techni michael ID = [id number] for An derson, Mary CT, BRAIN, WITHOUT [id number] 10:01:00Unlisted Reason for Exam - Click Yes and Enter Reason Below->YesUnlisted Reason for Exam->f[facility] : 1945 Sex: [...] convexity subdural hematomas are grossly unchanged.Signed: Case Abrams MDReport Verified Date/Time: 10/17/2020 10:01:47 Reading Location: [address] Neuro Reading Room C METABOLIC [id number] 07:33:00 Test Item Value Reference Range Interpretation [...] S NOT APPLICABLE FOR DIALYSIS PATIEN TS. Technical Healthcare Consultant ID - ALBINO [id number] 07:33:00 Test Item Value Reference Range Interpretation Comments MAGNESIUM (BEAKER) (test code = 2.3 mg/dL 1.6-2.6 627) Technical Healthcare Consultant ID - ALBINO [id number] 07:33:00 Test Item Value Reference Range Interpretation Comments PHOSPHORUS (BEAKER) (test code = 2.9 mg/dL 2.3-4.7 604) Technical Healthcare Consultant ID - ALBINO MHEPATIC FUNCTION [id number] 07:33:00 Test Item Value Reference Range Interpretation [...] (test code = 16 U/L 6-55 347) Technical Healthcare Consultant ID - ALBINO MCBC W/PLT COUNT & AUTO [id number] 07:26:00 Test Item Value Reference Range Interpretation [...] PERCENT (BEAKER) (test code = 2801) POCT-GLUCOSE [id number] 07:24:00 Test Item Value Reference Range Interpretation Comments POC-GLUCOSE METER 111 mg/dL 70-110 H : TESTED A T [facility] 6720 (BEAKER) (test code = [facility], 1538) 42479: Technical Healthcare Consultant/Techni michael ID = [id number] for An Mary martin POCT-GLUCOSE [id number] 21:58:00 Test Item Value Reference Range Interpretation Comments POC-GLUCOSE METER 177 mg/dL 70-110 H : TESTED A T [facility] 6720 (MIRIAN) (test code = [place], 1538) [address]: Technical Healthcare Consultant/Techni michael ID = [id number] for Cr Markie cedeño U/S, DRAINAGE, W/ CATH [id number] 18:56:00Reason for exam:->ACUTE CHOLECYSTITISCHI [facility] : 1945 Sex: MFINAL REPORT Percutaneous cholecystostomy tube placement. History: Acute cholecystitis Machining Department Supervisor: Leif Ojeda MD. Human Performance Professor: None. Modality: Ultrasound Anesthesia: Lidocaine local infiltration. [...] gallbladder lumen. Following sequential dilatation, an 8 [place]ican locking pigtail drainage catheter was advanced into [...] to the laboratory Impression: Successful ultrasound-guided 8 [place]ican percutaneous transhepatic cholecystostomy placement as describedabove. Thank you for the opportunity to assist in the care of your patient. Signed: Leif Ojeda MDReport Verified Date/Time: 10/16/2020 18:56:16 Reading Location: [address] Body Reading Room HEPATIC FUNCTION [id number] 16:10:00 Test Item Value Reference Range Interpretation [...] (test code = 14 U/L 6-55 347) Technical Healthcare Consultant ID - DBOperator ID - DBCT, [id number] 11:13:00Unlisted Reason for Exam - Click Yes and Enter Reason Below->YesUnlisted Reason for Exam- >RUQ and epigastric pain with possible acute sylvia, eval for biliary pancreatitis and possible complications of pancreatitisWill this procedure require oral contrast?->No [facility] : 1945 Sex: MFINAL [...] IV contrast follow-up is recommended. Signed: Piotr Wiggins Verified Date/Time: 10/16/2020 11:13:59 Reading Location: [facility] C013Y CT Body Reading Room -GLUCOSE [id number] 08:22:00 Test Item Value Reference Range Interpretation Comments POC-GLUCOSE METER 129 mg/dL 70-110 H : TESTED A T [facility] 6720 (BEAKER) (test code = [facility], 1538) [address]: Technical Healthcare Consultant/Techni michael ID = [id number] for MAGALY GARCIA RAJINDEREMMA BASIC METABOLIC [id number] 07:09:00 Test Item Value Reference Range Interpretation [...] S NOT APPLICABLE FOR DIALYSIS PATIEN TS. Technical Healthcare Consultant ID - [id number] 07:09:00 Test Item Value Reference Range Interpretation Comments MAGNESIUM (BEAKER) (test code = 2.1 mg/dL 1.6-2.6 627) Technical Healthcare Consultant ID - [id number] 07:09:00 Test Item Value Reference Range Interpretation Comments PHOSPHORUS (BEAKER) (test code = 2.1 mg/dL 2.3-4.7 L 604) Technical Healthcare Consultant ID - ARCHIESONCBC W/PLT COUNT & AUTO [id number] 06:45:00 Test Item Value Reference Range Interpretation [...] (BEAKER) (test code = 2801) U/S, ABDOMINAL, [id number] 01:25:00Abdomen limited area? Add comment if clarification is needed.->Gall BladderReason for exam:->RUQ, epigastric pain; evaluate for biliary pancreatitis [facility] : 1945 Sex: [...] warranted. No biliary ductal dilatation. Signed: Aly Lopes MDRepmissouri southern healthcare Verified Date/Time: 10/16/2020 01:25:51 POCT-GLUCOSE [id number] 21:25:00 Test Item Value Reference Range Interpretation Comments POC-GLUCOSE METER 178 mg/dL 70-110 H : TESTED A T [facility] 6720 ([employer]) (test code = [facility], 1538) [address]: Technical Healthcare Consultant/Techni michael ID = [id number] for DO VE, CHEKARA POCT-GLUCOSE [id number] 16:48:00 Test Item Value Reference Range Interpretation Comments POC-GLUCOSE METER 208 mg/dL 70-110 H : TESTED A T [facility] 6720 ([employer]) (test code = [facility], 1538) 46481: Technical Healthcare Consultant/Techni michael ID = [id number] for RO DGERS, RAJINDERECA POCT-GLUCOSE [id number] 13:01:00 Test Item Value Reference Range Interpretation Comments POC-GLUCOSE METER 251 mg/dL 70-110 H : TESTED A T [facility] 6720 (MIRIAN) (test code = [place], 1538) [address]: Technical Healthcare Consultant/Techni michael ID = [id number] for SHAHRIAR HANDLEY SARS-COV2/RT-PCR ([facility])2020-10-15 12:38:00 Test Item Value Reference Range Interpretation Comments SARS-COV2/RT-PCR (test Negative Not Detected, Negative, code = 2459149) See external report for linked test SARS-COV-2 PERFORMING LAB [facility] DNANY (test code = 6545906) Negative result for this test determines that [...] 564(g) of the Act.Fact Sheet for Healthcare Providers:https://www.Smart Plate.[employer]/sites/default/files/product/documents/Fact_Shee y_SH_Ceniknvwk_Jqfl_MFKQ-PbR-7.pdfFact Sheet for Healthcare Patients:https://www.[employer]/sites/default/files/product/ documents/Sovo_Frgqy_Nbluikuo_Lynr_BVAP-AgP-9.pdfPerforming Laboratory:[facility], [place] [id number] 12:14:00 Test Item Value Reference Range Interpretation Comments LIPASE (BEAKER) (test code = 749) 10 U/L 8-78 Technical Healthcare Consultant ID - DBBLOOD GAS, [id number] 08:49:00 Test Item Value Reference Range Interpretation [...] (BEAKER) (test code = 1819) 21.0 POCT-GLUCOSE [id number] 08:06:00 Test Item Value Reference Range Interpretation Comments POC-GLUCOSE METER 214 mg/dL 70-110 H : TESTED A T [facility] 6720 (BEAKER) (test code = SHER Estevez [facility], 1538) [address]: Technical Healthcare Consultant/Techni michael ID = [id number] for RO DGERS, RAJINDERECA RAD, CHEST, 1 VIEW, NON [id number] 07:03:00Reason for exam:->FeverShould this be performed at the bedside?->Yes [facility] : 1945 Sex: MFINAL REPORT TECHNIQUE: [...] document resolution. Pulmonary venous congestion. Signed: Margie Foster MDReport Verified Date/Time: 10/15/2020 07:03:46 Reading Location: [address] Ortho Consult Reading Room LACTIC ACID, [id number] 06:11:00 Test Item Value Reference Range Interpretation Comments LACTATE BLOOD VENOUS (2) (BEAKER) 0.90 mmol/L 0.50-2.20 (test code = 2872) Technical Healthcare Consultant ID - DBCBC W/PLT COUNT & AUTO [id number] 06:01:00 Test Item Value Reference Range Interpretation [...] PERCENT (BEAKER) (test code = 2801) POCT-GLUCOSE [id number] 00:46:00 Test Item Value Reference Range Interpretation Comments POC-GLUCOSE METER 150 mg/dL 70-110 H : TESTED A T [facility] 6720 (BEAKER) (test code = [place], 1538) [address]: Technical Healthcare Consultant/Techni michael ID = [id number] for MA NUEL, JENNIFER URINALYSIS W/ [id number] 00:42:00 Test Item Value Reference Range Interpretation [...] = 1521) SOURCE(BEAKER) (test code = 2795) Technical Healthcare Consultant ID - [auto]Technical Healthcare Consultant ID - techPOCT-GLUCOSE [id number] 16:26:00 Test Item Value Reference Range Interpretation Comments POC-GLUCOSE METER 121 mg/dL 70-110 H : TESTED A T [facility] 6720 (BEAKER) (test code = SHER Estevez [facility], 1538) 449[address]: Technical Healthcare Consultant/Techni michael ID = [id number] for Magan grant (pca2)Zoila HIGH SENSITIVITY TROPONIN [id number] 11:57:00 Test Item Value Reference Range Interpretation Comments HIGH SENSITIVITY 29 pg/ml See_Comment [Automated message] TROPONIN I (test code = The system which 5435986) generated this result transmitted ref erence range: <=35. Th e reference range was not used to int erpret this result as normal/abnormal . Technical Healthcare Consultant ID - ALBINO MThe FRIT BURNER STAT High Sensitivity Troponin-I results should be used in conjunction with other diagnostic information such as ECG, clinical observations and information, and patient symptoms to aid in the diagnosis of NC.POCT-GLUCOSE [id number] 11:04:00 Test Item Value Reference Range Interpretation Comments POC-GLUCOSE METER 137 mg/dL 70-110 H : TESTED A T [facility] 6720 (BEAKER) (test code = SHER Estevez [facility], 1538) [address]: Technical Healthcare Consultant/Techni michael ID = [id number] for Magan grant (pca2)Zoila RAPID DRUG SCREEN, [id number] 10:57:00 Test Item Value Reference Range Interpretation [...] situations. Chain of custody not maintained. Some ipbl-hrs-dcgpbrd medications, as well as adulterants, may cause inaccurate results. Clinical correlation should be applied. A more comprehensivedrug screen or confirmation of a detected drug may be performed upon request.Technical Healthcare Consultant ID - ALBINO Inestor ID - [auto]CT, BRAIN, WITHOUT [id number] 10:42:00Unlisted Reason for Exam - Click Yes and Enter Reason Below->YesUnlisted Reason for Exam->R SDH frontoparietal convexity. [facility] : 1945 Sex: MFINAL [...] hematoma. Signed: Heidy Caicedo Verified Date/Time: 110:42:46 PROTHROMBIN TIME/[id number] 10:00:00 Test Item Value Reference Range Interpretation Comments PROTIME (BEAKER) 9.9 seconds 9.8-12.0 (test code = 759) INR (BEAKER) (test 0.96 See_Comment [Automat ed message] code = 370) The system Pulsar generated this result transmitted ref erence range: <=5.90. The reference range was not used to interpr et this result as normal/abnormal . RECOMMENDED COUMADIN/WARFARIN INR THERAPY RANGESSTANDARD DOSE: 2.0 - 3.0 Includes: PROPHYLAXIS forvenous thrombosis, systemic embolization; TREATMENT for venous thrombosis and/or pulmonary embolus.HIGH RISK: Target INR is 2.5-3.5 for patients with mechanical heart valves.COMPREHENSIVE METABOLIC [id number] 07:47:00 Test Item Value Reference Range Interpretation [...] S NOT APPLICABLE FOR DIALYSIS PATIEN TS. Technical Healthcare Consultant ID - ALBINO [id number] 07:47:00 Test Item Value Reference Range Interpretation Comments MAGNESIUM (BEAKER) (test code = 2.2 mg/dL 1.6-2.6 627) Technical Healthcare Consultant ID - ALBINO [id number] 07:47:00 Test Item Value Reference Range Interpretation Comments PHOSPHORUS (BEAKER) (test code = 2.3 mg/dL 2.3-4.7 604) Technical Healthcare Consultant ID - ALBINO EPATIC FUNCTION [id number] 07:47:00 Test Item Value Reference Range Interpretation [...] (test code = 29 U/L 6-55 347) Technical Healthcare Consultant ID - ALBINO VARMAIGH SENSITIVITY TROPONIN [id number] 07:30:00 Test Item Value Reference Range Interpretation Comments HIGH SENSITIVITY 27 pg/ml See_Comment [Automated message] TROPONIN I (test code = The system which [id number]) generated this result transmitted ref erence range: <=35. Th e reference range was not used to int erpret this result as normal/abnormal . Technical Healthcare Consultant ID - ALBINO WMCHealthe FRIT BURNER STAT High Sensitivity Troponin-I results should be used in conjunction with other diagnostic information such as ECG, clinical observations and information, and patient symptoms to aid in the diagnosis of NC.[id number] 07:13:00 Test Item Value Reference Range Interpretation Comments PARTIAL THROMBOPLASTIN TIME 32.0 seconds 22.5-36.0 (BEAKER) (test code = 760) [id number] 07:12:00 Test Item Value Reference Range Interpretation Comments FIBRINOGEN LEVEL (BEAKER) (test 470 mg/dl 225-434 H code = 658) CBC W/PLT COUNT & AUTO [id number] 07:11:00 Test Item Value Reference Range Interpretation [...] PERCENT (BEAKER) (test code = 2801) POCT-GLUCOSE [id number] 07:02:00 Test Item Value Reference Range Interpretation Comments POC-GLUCOSE METER 151 mg/dL 70-110 H : TESTED A T [facility] 6720 (BEAKER) (test code = [facility], 1538) 39[address]: Technical Healthcare Consultant/Techni michael ID = [id number] for JENNIFER CRAFT POCT-GLUCOSE [id number] 06:48:00 Test Item Value Reference Range Interpretation Comments POC-GLUCOSE METER 156 mg/dL 70-110 H : TESTED A T [facility] 6720 (BEAKER) (test code = [facility], 1538) 05338: Technical Healthcare Consultant/Techni michael ID = [id number] for KLEVER CAMARA VITAMIN D, [id number] 20:23:00 Test Item Value Reference Range Interpretation Comments VITAMIN D 25-OH (BEAKER) (test 51.9 ng/mL 6.6-49.9 H code = 2764) Effective 02/12/2017: Reference Range ChangeNew: 6.6-49.9 ng/mL Previous: 13.0-47.8 ng/mLRecommended Vitamin D Target Range: 30.0-40.0 ng/mLOperator ID - [id number] 19:35:00 Test Item Value Reference Range Interpretation Comments FERRITIN (BEAKER) (test code = 135.65 ng/mL 5.00-275.00 361) Technical Healthcare Consultant ID - BRANDON CVITAMIN B12 AND [id number] 19:35:00 Test Item Value Reference Range Interpretation Comments VITAMIN B12 1504 pg/mL 213-816 H (BEAKER) (test code = 774) FOLATE (BEAKER) 19.30 ng/mL See_Comment [Automated message] (test code = 362) The system which generated this result transmitted ref erence range: >=7.00. The reference range was not used to interpr et this result as normal/abnormal . Technical Healthcare Consultant ID - FAVIOOperator ID - BRANDON CPOCT-GLUCOSE [id number] 12:22:00 Test Item Value Reference Range Interpretation Comments POC-GLUCOSE METER 181 mg/dL 70-110 H : TESTED A T [facility] 6720 (BEAKER) (test code [facility], = 1538) 87507: Technical Healthcare Consultant/Techni michael ID = [id number] for FARHANA GARCIA POCT-GLUCOSE [id number] 07:53:00 Test Item Value Reference Range Interpretation Comments POC-GLUCOSE METER 119 mg/dL 70-110 H : TESTED A T [facility] 6720 (BEAKER) (test code [facility], = 1538) 20211: Technical Healthcare Consultant/Techni michael ID = [id number] for FARHANA GARCIA BASIC METABOLIC [id number] 07:20:00 Test Item Value Reference Range Interpretation [...] S NOT APPLICABLE FOR DIALYSIS PATIEN TS. Technical Healthcare Consultant ID - [id number] 07:20:00 Test Item Value Reference Range Interpretation Comments MAGNESIUM (BEAKER) (test code = 2.2 mg/dL 1.6-2.6 627) Technical Healthcare Consultant ID - [id number] 07:20:00 Test Item Value Reference Range Interpretation Comments PHOSPHORUS (BEAKER) (test code = 4.0 mg/dL 2.3-4.7 604) Technical Healthcare Consultant ID - EDASIIRON, TIBC, % SAT. (WITHOUT FERRITIN)2020-07-07 06:52:00 Test Item Value Reference Range Interpretation Comments IRON (BEAKER) (test code = 547) 75.0 ug/dL 40.0-160.0 TOTAL IRON BINDING CAPACITY 261 ug/dL 250-450 (BEAKER) (test code = 769) IRON % SATURATION (2) (BEAKER) 29 % 20-55 (test code = 2590) Technical Healthcare Consultant ID - EDASICBC W/PLT COUNT & AUTO [id number] 06:47:00 Test Item Value Reference Range Interpretation [...] PERCENT (BEAKER) (test code = 2801) POCT-GLUCOSE [id number] 11:33:00 Test Item Value Reference Range Interpretation Comments POC-GLUCOSE METER 135 mg/dL 70-110 H : TESTED A T [facility] 6720 [facility] (test code = SHER Estevez [facility], 1538) 89783: Technical Healthcare Consultant/Techni michael ID = [id number] for [facility], [place] CT, BRAIN, WITHOUT [id number] 09:48:00Unlisted Reason for Exam - Click Yes and Enter Reason Below->YesUnlisted Reason for Exam->SDH [facility] : 1945 Sex: MFINAL [...] MDReport Verified Date/Time: 07/06/2020 09:48:25 Reading Location: [address] Neuro Reading Room POCT-GLUCOSE [id number] 06:37:00 Test Item Value Reference Range Interpretation Comments POC-GLUCOSE METER 137 mg/dL 70-110 H : TESTED A T [facility] 6720 (BEAKER) (test code = SHER Estevez [facility], 1538) 22369: Technical Healthcare Consultant/Techni michael ID = [id number] for ELYSE MARLOW BASIC METABOLIC [id number] 04:16:00 Test Item Value Reference Range Interpretation [...] S NOT APPLICABLE FOR DIALYSIS PATIEN TS. Technical Healthcare Consultant ID - ALBINO [id number] 04:16:00 Test Item Value Reference Range Interpretation Comments MAGNESIUM (BEAKER) (test code = 2.0 mg/dL 1.6-2.6 627) Technical Healthcare Consultant ID - ALBINO [id number] 04:16:00 Test Item Value Reference Range Interpretation Comments PHOSPHORUS (BEAKER) (test code = 2.6 mg/dL 2.3-4.7 604) Technical Healthcare Consultant ID - ALBINO MCBC W/PLT COUNT & AUTO [id number] 03:46:00 Test Item Value Reference Range Interpretation [...] IMMATURE GRANULOCYTES-RELATIVE 2 % 0-1 H PERCENT ([facility]) (test code = 2801) POCT-GLUCOSE [id number] 00:34:00 Test Item Value Reference Range Interpretation Comments POC-GLUCOSE METER 115 mg/dL 70-110 H : TESTED A T [facility] 6720 ([facility]) (test code = [facility], 153) 50937: Technical Healthcare Consultant/Techni michael ID = [id number] for Maryan Mcfarlane POCT-GLUCOSE [id number] 17:25:00 Test Item Value Reference Range Interpretation Comments POC-GLUCOSE METER 111 mg/dL 70-110 H : TESTED A T [facility] 6720 ([facility]) (test code = [facility], 1538) 94113: Technical Healthcare Consultant/Techni michael ID = [id number] for [facility] [place], [place] POCT-GLUCOSE [id number] 12:32:00 Test Item Value Reference Range Interpretation Comments POC-GLUCOSE METER 157 mg/dL 70-110 H : Notified RN/MD: ([facility]) (test code = TESTED AT [facility] 6720 1538) [facility], [address]: Technical Healthcare Consultant/Techni michael ID = [id number] for [facility] [place], [place] TROPONIN [id number] 07:49:00 Test Item Value Reference Range Interpretation [...] failure, acidosis, acute neurological disease, and persistent tachyarrhythmia.Technical Healthcare Consultant ID - ROSIANGBASIC METABOLIC [id number] 03:30:00 Test Item Value Reference Range Interpretation [...] S NOT APPLICABLE FOR DIALYSIS PATIEN TS. Technical Healthcare Consultant ID - ALBINO [id number] 03:30:00 Test Item Value Reference Range Interpretation Comments MAGNESIUM (BEAKER) (test code = 2.1 mg/dL 1.6-2.6 627) Technical Healthcare Consultant ID - ALBINO [id number] 03:30:00 Test Item Value Reference Range Interpretation Comments PHOSPHORUS (BEAKER) (test code = 2.3 mg/dL 2.3-4.7 604) Technical Healthcare Consultant ID - ALBINO MCBC W/PLT COUNT & AUTO [id number] 03:20:00 Test Item Value Reference Range Interpretation [...] PERCENT (BEAKER) (test code = 2801) POCT-GLUCOSE [id number] 00:09:00 Test Item Value Reference Range Interpretation Comments POC-GLUCOSE METER 108 mg/dL 70-110 : TESTED A T [facility] 6720 (BEAKER) (test code = [facility], 1538) 80191: Technical Healthcare Consultant/Techni michael ID = [id number] for ELYSE MARLOW POCT-GLUCOSE [id number] 17:45:00 Test Item Value Reference Range Interpretation Comments POC-GLUCOSE METER 108 mg/dL 70-110 : TESTED A T [facility] 6720 (BEAKER) (test code = [facility], 1538) [address]98[address]: Technical Healthcare Consultant/Techni michael ID = [id number] for LL OJACKIE FRANKLINKEYA BASIC METABOLIC [id number] 11:59:00 Test Item Value Reference Range Interpretation [...] S NOT APPLICABLE FOR DIALYSIS PATIEN TS. Technical Healthcare Consultant ID - SMPOCT-GLUCOSE [id number] 11:46:00 Test Item Value Reference Range Interpretation Comments POC-GLUCOSE METER 149 mg/dL 70-110 H : TESTED A T [facility] 6720 (BEAKER) (test code = [facility], 1538) 72082: Technical Healthcare Consultant/Techni michael ID = [id number] for Wi lliams, Irene HEMOGLOBIN AND [id number] 11:37:00 Test Item Value Reference Range Interpretation Comments HEMOGLOBIN (BEAKER) (test code = 9.2 GM/DL 13.7-17.5 L 410) HEMATOCRIT (BEAKER) (test code = 29.3 % 40.1-51.0 L 411) Technical Healthcare Consultant ID - [id number] KINASE (CK)2020-07-04 10:38:00 Test Item Value Reference Range Interpretation Comments CREATINE KINASE TOTAL (BEAKER) (test 71 U/L 29-200 code = 380) Technical Healthcare Consultant ID - ALBINO MPOCT-GLUCOSE [id number] 08:00:00 Test Item Value Reference Range Interpretation Comments POC-GLUCOSE METER 105 mg/dL 70-110 : TESTED A T [facility] 6720 (BEAKER) (test code = [place], 1538) 25[address]: Technical Healthcare Consultant/Techni michael ID = [id number] for ISMAEL GRAMAJO BASIC METABOLIC [id number] 03:45:00 Test Item Value Reference Range Interpretation [...] S NOT APPLICABLE FOR DIALYSIS PATIEN TS. Technical Healthcare Consultant ID - [id number] 03:45:00 Test Item Value Reference Range Interpretation Comments MAGNESIUM (BEAKER) (test code = 2.1 mg/dL 1.6-2.6 627) Technical Healthcare Consultant ID - [id number] 03:45:00 Test Item Value Reference Range Interpretation Comments PHOSPHORUS (BEAKER) (test code = 2.9 mg/dL 2.3-4.7 604) Technical Healthcare Consultant ID - SMPROTHROMBIN TIME/[id number] 03:37:00 Test Item Value Reference Range Interpretation Comments PROTIME (BEAKER) 14.7 seconds 11.9-14.2 H (test code = 759) INR (BEAKER) (test 1.18 See_Comment [Automat ed message] code = 370) The system Pulsar generated this result transmitted ref erence range: <=5.90. The reference range was not used to int erpret this result as normal/abnormal . Effective 09/30/2018: PT Reference Range ChangeNew: 11.9-14.2 Previous: 11.7- 14.7RECOMMENDED COUMADIN/WARFARIN INR THERAPY RANGESSTANDARD DOSE: 2.0-3.0 Includes: PROPHYLAXIS for venous thrombosis, systemic embolization; TREATMENT for venous thrombosis and/or pulmonary embolus.HIGH RISK: Target INR is2.5-3.5 for patients wiht mechanical heart valves.[id number] 03:37:00 Test Item Value Reference Range Interpretation Comments PARTIAL THROMBOPLASTIN TIME 31.1 seconds 22.5-36.0 (BEAKER) (test code = 760) CBC W/PLT COUNT & AUTO [id number] 03:34:00 Test Item Value Reference Range Interpretation [...] 0-1 PERCENT (BEAKER) (test code = 2801) HEMOGLOBIN AND [id number] 21:51:00 Test Item Value Reference Range Interpretation Comments HEMOGLOBIN (BEAKER) (test code = 9.1 GM/DL 13.7-17.5 L 410) HEMATOCRIT (BEAKER) (test code = 28.6 % 40.1-51.0 L 411) Technical Healthcare Consultant ID - 6000POCT-GLUCOSE [id number] 21:44:00 Test Item Value Reference Range Interpretation Comments POC-GLUCOSE METER 158 mg/dL 70-110 H : TESTED A T [facility] 6720 (BEAKER) (test code = [place], 1538) [address]: Technical Healthcare Consultant/Techni michael ID = [id number] for ELYSE MARLOW POCT-GLUCOSE [id number] 16:56:00 Test Item Value Reference Range Interpretation Comments POC-GLUCOSE METER 144 mg/dL 70-110 H : Notified RN/MD: (MIRIAN) (test code = TESTED AT [facility] 6720 1538) [facility], [address]: Technical Healthcare Consultant/Techni michael ID = [id number] for ISMAEL GRAMAJO THROMBOELASTOGRAPH (TEG)2020-07-03 13:35:00 Test Item Value Reference Range [...] 0.0-5.0 code = 1414) CT, BRAIN, WITHOUT [id number] 08:29:00Unlisted Reason for Exam - Click Yes and Enter Reason Below->No [facility] : 1945 Sex: [...] MDReport Verified Date/Time: 07/03/2020 08:29:18 Reading Location: [address] Neuro Reading Room Electronically signed by: CASE ABRAMS M.D. on 108:29 AMHEMOGLOBIN [id number] 08:21:00 Test Item Value Reference Range Interpretation Comments HEMOGLOBIN A1C (BEAKER) (test code = 5.7 % 4.3-6.1 368) [id number] 07:19:00 Test Item Value Reference Range Interpretation Comments MAGNESIUM (BEAKER) 2.3 mg/dL 1.6-2.6 Specimen slightly (test code = 627) hemolyzed Technical Healthcare Consultant ID - ALBINO [id number] 07:19:00 Test Item Value Reference Range Interpretation Comments PHOSPHORUS (BEAKER) 2.2 mg/dL 2.3-4.7 L Specimen slightly (test code = 604) hemolyzed Technical Healthcare Consultant ID - ALBINO MBASIC METABOLIC [id number] 05:56:00 Test Item Value Reference Range Interpretation [...] S NOT APPLICABLE FOR DIALYSIS PATIEN TS. Technical Healthcare Consultant ID - ALBINO MCBC W/PLT COUNT & AUTO [id number] 05:06:00 Test Item Value Reference Range Interpretation [...] 0-1 PERCENT (BEAKER) (test code = 2801) TSH/FREE T4 IF [id number] 04:35:00 Test Item Value Reference Range Interpretation Comments THYROID STIMULATING HORMONE 0.793 uIU/mL 0.350-4.940 (BEAKER) (test code = 772) Technical Healthcare Consultant ID - ALBINO MBASIC METABOLIC [id number] 04:21:00 Test Item Value Reference Range Interpretation [...] S NOT APPLICABLE FOR DIALYSIS PATIEN TS. Technical Healthcare Consultant ID - ALBINO [id number] 04:19:00 Test Item Value Reference Range Interpretation Comments MAGNESIUM (BEAKER) (test code = 1.4 mg/dL 1.6-2.6 L 627) Technical Healthcare Consultant ID - ALBINO MLIPID [id number] 04:19:00 Test Item Value Reference Range Interpretation [...] Borderline 130-159 High 160-189 Very High >=190 Technical Healthcare Consultant ID - ALBINO [id number] 04:19:00 Test Item Value Reference Range Interpretation Comments LIPASE (BEAKER) (test code = 749) 5 U/L 8-78 L Technical Healthcare Consultant ID - ALBINO MSARS-COV2/RT-PCR ([facility])2020-07-03 01:30:00 Test Item Value Reference Range Interpretation Comments SARS-COV2/RT-PCR (test code Negative Not Detected, Negative, = 2080561) See external report for linked test SARS-COV-2 PERFORMING LAB [facility] (test code = 7876125) Negative results do not preclude SARS-CoV-2 infection [...] of the Act.Fact Sheet for Healthcare Pro viders:https://www.[employer]/Documents/Xpert%20Xpress%20SARS%20CoV-2/Fact%20Sh eets/302-3802%82IJQB-LFP-3%20HEALTHCARE%20PROVIDERS%20FACT%20SHEET.pdfFact Sheet for Healthcare Patients:https://www.[employer]/Documents/Xpert%20Xpress%20SARS%20CoV-2/Fact%20Sheets/302-3801%20SARS-COV -2%20PATIENT%20FACT%20SHEET.pdfPerforming Laboratory:[facility], [place] [address]IWH, CHEST, 1 VIEW, NON [id number] 23:20:00Reason for exam:->preopShould this be performed at the bedside?->YesSHAST[facility] : 1945 Sex: [...] Impression: No focal pulmonary consolidation. Signed: Aly Lopeseport Verified Date/Time: 07/02/2020 23:20:48 B-TYPE NATRIURETIC FACTOR (BNP)2020-07-02 22:22:00 Test Item Value Reference Range Interpretation Comments B-TYPE NATRIURETIC PEPTIDE (BEAKER) 799 pg/mL 0-100 H (test code = 700) Technical Healthcare Consultant ID - DBBASIC METABOLIC [id number] 22:15:00 Test Item Value Reference Range Interpretation [...] S NOT APPLICABLE FOR DIALYSIS PATIEN TS. Technical Healthcare Consultant ID - [id number] 22:12:00 Test Item Value Reference Range Interpretation Comments FIBRINOGEN LEVEL (BEAKER) (test 286 mg/dl 225-434 code = 658) [id number] 22:12:00 Test Item Value Reference Range Interpretation Comments PARTIAL THROMBOPLASTIN TIME 32.6 seconds 22.5-36.0 (BEAKER) (test code = 760) PROTHROMBIN [id number] 22:11:00 Test Item Value Reference Range Interpretation Comments PROTIME (BEAKER) 14.8 seconds 11.9-14.2 H (test code = 759) INR (BEAKER) (test 1.20 See_Comment [Automat ed message] code = 370) The system Pulsar generated this result transmitted ref erence range: [...] mechanical heart valves.CBC W/PLT COUNT & AUTO [id number] 22:03:00 Test Item Value Reference Range Interpretation [...] PERCENT (BEAKER) (test code = 2801) TROPONIN [id number] 21:54:00 Test Item Value Reference Range Interpretation [...] failure, acidosis, acute neurological disease, and persistent tachyarrhythmia.Technical Healthcare Consultant ID - DBCOMPREHENSIVE METABOLIC [id number] 21:48:00 Test Item Value Reference Range Interpretation [...] S NOT APPLICABLE FOR DIALYSIS PATIEN TS. Technical Healthcare Consultant ID - [id number] 21:48:00 Test Item Value Reference Range Interpretation Comments MAGNESIUM (BEAKER) (test code = 2.1 mg/dL 1.6-2.6 627) Technical Healthcare Consultant ID - [id number] 21:48:00 Test Item Value Reference Range Interpretation Comments PHOSPHORUS (BEAKER) (test code = 2.7 mg/dL 2.3-4.7 604) Technical Healthcare Consultant ID - DBCBC W/PLT COUNT & AUTO [id number] 21:32:00 Test Item Value Reference Range Interpretation [...]
[2021-03-28] MEDS ORDERED: NA CHLORIDE 0.9% 100 ML ONE (14:39)
[2021-03-28] MEDS ORDERED: PIPERACIL/TAZO 3.375 GM VIAL IV ONE (14:39)
[2021-03-28 14:40] LABS: Absolute Lymphocytes (CBC) 1.5 K/uL (0.7-4.9); Hematocrit 31.1 % (39.6-49.0); Lymphocytes % 18.9 % (15.3-44.8); MPV 7.1 fL (7.6-11.3); RBC Red Blood Cell Count 3.42 M/uL (4.33-5.43)
[2021-03-28 14:47] LABS: Protime INR 1.17
[2021-03-28 14:57] LABS: Potassium 4.1 mmol/L (3.5-5.1)
--- NOTE | 2021-03-28 15:25 | RAD REPORT ---
EXAM DESCRIPTION: RAD - Hand Left 3 View - 03/28/2021 3:17 pm CLINICAL HISTORY: SWELLING Pain and swelling COMPARISON: Hand Left 3 View dated 01/13/2016 FINDINGS: Prominent soft tissue swelling is seen along the dorsum of the hand and wrist. No fracture , foreign body or soft tissue gas.
--- NOTE | 2021-03-28 15:27 | RAD REPORT ---
EXAM DESCRIPTION: RAD - Forearm Left - 03/28/2021 3:17 pm CLINICAL HISTORY: cat bite;Pain;Swelling Pain and swelling. COMPARISON: No comparisons FINDINGS: Mild atherosclerosis. Significant soft tissue swelling is seen affecting the forearm. No r adiopaque foreign body or soft tissue gas. No fracture evident.
--- NOTE | 2021-03-28 15:47 | RAD REPORT ---
EXAM DESCRIPTION: CT - Forearm Left W Con - 03/28/2021 3:32 pm CLINICAL HISTORY: pain Pain and swelling COMPARISON: No comparisons FINDINGS: There is significant soft tissue swelling present involving the hand and wrist, greatest d orsally. No radiopaque foreign body or fracture. No soft tissue gas. Multiple varying size abscess collections are seen within the muscles of the dorsal hand and forearm. In the dorsal hand region at the level of the base third and fourth metatarsals an abscess is presen t which is oblong and measures 12 x 6 mm. Several additional abscesses are present within the muscles along the midline of the dorsum of the fo rearm. The largest abscess is adjacent to the distal shaft of the radius measuring 5.4 cm in length a nd 2.0 cm in anterior-posterior dimension. IMPRESSION: Multiple intramuscular abscesses are present involving the soft tissues of the forearm a nd wrist dorsally as detailed. All CT scans are performed using dose optimization technique as appropriate and may include automated exposure control or mA/KV adjustment according to patient size.
[2021-03-28 16:06] LABS: Anisocytosis 2+; Blood Morphology Comment NOTED (NOT SEEN); Ovalocytes SLIGHT; Platelet Estimate INCR; Poikilocytosis SLIGHT
--- NOTE | 2021-03-28 16:27 | EDPHYS ---
Physician Documentation [facility] Name: Farhat Burch Sr Age: 76 yrs Sex: Male : 1945 Arrival Date: 03/28/2021 Time: 14:02 Bed 15 Private MD: ED Physician Derek Robin HPI: 03/28 14:29 This 76 yrs old Male presents to ER via EMS with complaints of Left arm rn swelling and cat bite. 14:29 The patient was bitten on the left arm. Onset: The symptoms/episode began/occurred 1 rn week(s) ago. Animal information: Patient/Caregiver unable to provide information related to the animal. Secondary to the bite the patient reports pain, swelling, warmth. Associated signs and symptoms: Pertinent positives: erythema at site, swelling at site, tenderness, Pertinent negatives: motor deficit, numbness distal to wound. Severity of symptoms: At their worst the symptoms were moderate, in the emergency department the symptoms are unchanged. The patient has not experienced similar symptoms in the past. The patient has not recently seen a physician. Patient reports bitten by cat last week, thought was going to get better, did not, increased swelling and pain to left forearm that is now extending to left hand. No fever. Reports has noticed a little purulent drainage from the initial wound that is located on the dorsum of the left forearm. Seen in clinic today and referred here for further care. Has not been on antibiotics.. Historical: - Home Meds: 14:25 albuterol sulfate 200 mcg Inhl cap 90 mcg/Actuation as needed [Active]; aripiprazole 5 sm5 mg oral tab 0.5 tab once daily [Active]; atorvastatin 40 mg oral tab 1 tab once daily [Active]; buspirone 10 mg Oral tab 2 tabs 3 times per day for generalized anxiety disorder [Active]; Creon 24,000-76,000 -120,000 unit oral cpDR 3 cap 3 times per day [Active]; cyanocobalamin (vitamin B-12) 1,000 mcg Oral tab daily [Active]; docusate sodium 50 mg Oral tab 50 mg nightly for constipation [Active]; duloxetine 60 mg oral CDRS 2 caps once daily [Active]; finasteride 1 mg oral tab 1 tab once daily [Active]; fluticasone propionate 50 mcg/actuation nasal spsn 1 spray 2 times per day [Active]; folic acid 1 mg Oral tab 1 tab once daily [Active]; gabapentin 300 mg oral cap 1 cap nightly [Active]; glipizide 10 mg Oral tab 15 mg 2 times per day [Active]; lisinopril 10 mg Oral tab 1 tab once daily [Active]; omeprazole 20 mg Oral cpDR 2 caps once daily [Active]; oxybutynin chloride 5 mg Oral tr24 3 times a day for bladder [Active]; trazodone 50 mg Oral tab at bedtime [Active]; - PMHx: 14:25 Anemia; Anxiety; neely esophagus; COPD; Depression; Diabetes - IDDM; Hyperlipidemia; sm5 Hypertension; resolved; - Immunization history:: Client reports receiving the 2nd dose of the Covid vaccine, Flu vaccine is up to date. shingles. - Social history:: Smoking status: Patient reports the use of cigarette tobacco products, smokes one pack cigarettes per day. - Family history:: not pertinent. - Hospitalizations: : No recent hospitalization is reported. ROS: 14:29 Constitutional: Negative for fever, chills, and weight loss, Eyes: Negative for injury, rn pain, redness, and discharge, Neck: Negative for injury, pain, and swelling, Cardiovascular: Negative for chest pain, palpitations, and edema, Respiratory: Negative for shortness of breath, cough, wheezing, and pleuritic chest pain, Abdomen/GI: Negative for abdominal pain, nausea, vomiting, diarrhea, and constipation, Back: Negative for injury and pain, MS/Extremity: Positive for puncture wound and swelling to left forearm Skin: Positive for redness and warmth to left forearm and hand Neuro: Negative for headache, weakness, numbness, tingling, and seizure. Exam: 14:29 Constitutional: This is a well developed, well nourished patient who is awake, alert, rn and in no acute distress. Head/Face: Normocephalic, atraumatic. Eyes: Periorbital areas with no swelling, redness, or edema. Cardiovascular: Regular rate and rhythm. No pulse deficits. Respiratory: No increased work of breathing, no retractions or nasal flaring. Abdomen/GI: Soft, non-tender Skin: Erythema and warmth to left forearm and dorsum of left hand. Induration throughout without focal area of fluctuance. No crepitus. MS/ Extremity: Pulses equal, no cyanosis. Neurovascular intact. Pitting edema mid left forearm to the left hand. Abrasions and puncture wounds from cat bite located on the left distal forearm had a circumferential. No purulence expressed with pressure. Neuro: Awake and alert, GCS 15 Vital Signs: 14:22 BP 145 / 84; Pulse 82; Resp 21; Temp 98.6; Pulse Ox 97% ; Weight 61.69 kg; Height 6 ft. sm5 0 in. (182.88 cm); Pain 2/10; 14:34 BP 145 / 84; Pulse 82; Resp 18; Temp 98.6; Pulse Ox 97% ; sm5 15:30 BP 142 / 81; Pulse 79; Resp 16; Pulse Ox 97% ; sm5 16:30 BP 132 / 75; Pulse 82; Resp 16; Pulse Ox 98% ; sm5 17:32 BP 135 / 73; Pulse 81; Resp 18; Pulse Ox 99% ; sm5 18:27 BP 150 / 83; Pulse 70; Resp 16; Pulse Ox 98% ; sm5 14:22 Body Mass Index 18.44 (61.69 kg, 182.88 cm) 5 MDM: 14:16 Patient medically screened. rn 15:52 ED course: Initiating transfer for hand consultation given multiple deep intramuscular rn abscess of forearm and hand. No hand coverage here. . 16:25 Differential diagnosis: cellulitis, deep space infection, abscess. Data reviewed: vital rn signs, nurses notes, lab test result(s), radiologic studies, CT scan, plain films, and as a result, I will admit patient. Counseling: I had a detailed discussion with the patient and/or guardian regarding: the historical points, exam findings, and any diagnostic results supporting the discharge/admit diagnosis, lab results, radiology results, the need for further work-up and treatment in the hospital, the need to transfer to another facility, for higher level of care, [facility] does not immediately have the required specialist. Response to treatment: the patient's symptoms have mildly improved after treatment, and as a result, I will admit patient. 03/28 14:22 Order name: CBC with Diff rn 03/28 14: Order name: Basic Metabolic Panel; Complete Time: 15:49 rn 03/28 14:22 Order name: Protime (+inr); Complete Time: 15:49 rn 03/28 14:22 Order name: Ptt, Activated; Complete Time: 15:49 rn 03/28 14:22 Order name: Procalcitonin; Complete Time: 15:49 rn 03/28 14:22 Order name: Lactate; Complete Time: 15:49 rn 03/28 14:22 Order name: IV Start; Complete Time: 14:37 rn 03/28 14:23 Order name: Blood Culture Adult (2) rn 03/28 14:23 Order name: CBC with Automated Diff EDMS 03/28 14:24 Order name: XRAY Hand LEFT 3 View; Complete Time: 15:49 rn 03/28 14:24 Order name: XRAY Forearm LEFT; Complete Time: 15:49 rn 03/28 14:28 Order name: Forearm Left W Con; Complete Time: 15:49 EDMS 03/28 16:06 Order name: Manual Differential EDMS Administered Medications: 14:51 Drug: Zosyn (piperacillin-tazobactam) 3.375 grams Route: IVPB; Infused Over: 60 mins; sm5 Site: right antecubital; Disposition Summary: 03/28/21 16:27 Transfer Ordered Transfer Location: [facility] rn Reason: Higher level of care rn Condition: Stable rn Problem: new rn Symptoms: have improved rn Accepting Physician: Dr. Marquis(03/28/21 19:36) ld1 Diagnosis - Cellulitis of left upper limb - With multiple abscesses in musculature of forearm rn and hand Forms: - Medication Reconciliation Form rn - SBAR form rn Signatures: Dispatcher [employer] EDMS Derek Robin MD MD rn Dibbern, Lauren RN RN ld1 Jazzmine Wilson, RN RN sm5 Corrections: (The following items were deleted from the chart) 18:00 16:27 Dr. castellanos rn 19:36 18:00 Dr. Marquis rn ld1
--- NOTE | 2021-03-28 16:27 | ER ---
Nurse's Notes [facility] Name: Farhat Burch Sr Age: 76 yrs Sex: Male : 1945 Arrival Date: 03/28/2021 Time: 14:02 Bed 15 Private MD: Diagnosis: Cellulitis of left upper limb-With multiple abscesses in musculature of forearm and hand Presentation: 03/28 14:22 Chief complaint: EMS states: pt was bit by his cat on L arm on Friday, swelling to L sm5 arm and hand. no fevers per pt. Coronavirus screen: Vaccine status: Patient reports receiving the 2nd dose of the covid vaccine. Client denies travel out of the [place] in the last 14 days. Ebola Screen: Patient negative for fever greater than or equal to 101.5 degrees Fahrenheit, and additional compatible Ebola Virus Disease symptoms Patient denies exposure to infectious person. Patient denies travel to an Ebola-affected area in the 21 days before illness onset. No symptoms or risks identified at this time. Initial Sepsis Screen: Does the patient meet any 2 criteria? No. Patient's initial sepsis screen is negative. Does the patient have a suspected source of infection? Yes: Skin breakdown/wound. Risk Assessment: Do you want to hurt yourself or someone else? Patient reports no desire to harm self or others. Onset of symptoms was March 27, 2021. 14:22 Method Of Arrival: EMS: [facility] 14:22 Acuity: JESSE 3 sm5 Triage Assessment: 14:34 General: Appears in no apparent distress. Behavior is calm, cooperative, appropriate 5 for age. Pain: Complains of pain in left hand and left arm. Neuro: Level of Consciousness is awake, alert, obeys commands, Oriented to person, place, time, situation. Cardiovascular: Reports. Cardiovascular: No deficits noted. Respiratory: Airway is patent Trachea midline Respiratory effort is even, unlabored. Musculoskeletal: Swelling present in left hand and left arm. Injury Description: Bite sustained to left arm caused by a cat. Historical: - Home Meds: 14:25 albuterol sulfate 200 mcg Inhl cap 90 mcg/Actuation as needed [Active]; aripiprazole 5 sm5 mg oral tab 0.5 tab once daily [Active]; atorvastatin 40 mg oral tab 1 tab once daily [Active]; buspirone 10 mg Oral tab 2 tabs 3 times per day for generalized anxiety disorder [Active]; Creon 24,000-76,000 -120,000 unit oral cpDR 3 cap 3 times per day [Active]; cyanocobalamin (vitamin B-12) 1,000 mcg Oral tab daily [Active]; docusate sodium 50 mg Oral tab 50 mg nightly for constipation [Active]; duloxetine 60 mg oral CDRS 2 caps once daily [Active]; finasteride 1 mg oral tab 1 tab once daily [Active]; fluticasone propionate 50 mcg/actuation nasal spsn 1 spray 2 times per day [Active]; folic acid 1 mg Oral tab 1 tab once daily [Active]; gabapentin 300 mg oral cap 1 cap nightly [Active]; glipizide 10 mg Oral tab 15 mg 2 times per day [Active]; lisinopril 10 mg Oral tab 1 tab once daily [Active]; omeprazole 20 mg Oral cpDR 2 caps once daily [Active]; oxybutynin chloride 5 mg Oral tr24 3 times a day for bladder [Active]; trazodone 50 mg Oral tab at bedtime [Active]; - PMHx: 14:25 Anemia; Anxiety; neely esophagus; COPD; Depression; Diabetes - IDDM; Hyperlipidemia; sm5 Hypertension; resolved; - Immunization history:: Client reports receiving the 2nd dose of the Covid vaccine, Flu vaccine is up to date. shingles. - Social history:: Smoking status: Patient reports the use of cigarette tobacco products, smokes one pack cigarettes per day. - Family history:: not pertinent. - Hospitalizations: : No recent hospitalization is reported. Screenin:34 Abuse screen: Denies threats or abuse. Denies injuries from another. Nutritional sm5 screening: No deficits noted. Tuberculosis screening: No symptoms or risk factors identified. Fall Risk No fall in past 12 months (0 pts). No secondary diagnosis (0 pts). IV access (20 points). Ambulatory Aid- None/Bed Rest/Nurse Assist (0 pts). Gait- Normal/Bed Rest/Wheelchair (0 pts) Mental Status- Oriented to own ability (0 pts). Total Wu Fall Scale indicates No Risk (0-24 pts). Assessment: 18:28 General: Appears in no apparent distress. Behavior is calm, cooperative. Pain: sm5 Complains of pain in left arm. Neuro: Level of Consciousness is awake, alert, Oriented to person, place, time, situation. Cardiovascular: No deficits noted. Cardiovascular:. Respiratory: Airway is patent Trachea midline Respiratory effort is even, unlabored. Derm: Wound noted left arm. Musculoskeletal: Swelling present in left hand and left arm. Vital Signs: 14:22 BP 145 / 84; Pulse 82; Resp 21; Temp 98.6; Pulse Ox 97% ; Weight 61.69 kg; Height 6 ft. 5 0 in. (182.88 cm); Pain 2/10; 14:34 BP 145 / 84; Pulse 82; Resp 18; Temp 98.6; Pulse Ox 97% ; 5 15:30 BP 142 / 81; Pulse 79; Resp 16; Pulse Ox 97% ; 5 16:30 BP 132 / 75; Pulse 82; Resp 16; Pulse Ox 98% ; 5 17:32 BP 135 / 73; Pulse 81; Resp 18; Pulse Ox 99% ; 5 18:27 BP 150 / 83; Pulse 70; Resp 16; Pulse Ox 98% ; 5 14:22 Body Mass Index 18.44 (61.69 kg, 182.88 cm) [facility] ED Course: 14:02 Patient arrived in ED. [facility] 14:03 Patient has correct armband on for positive identification. Bed in low position. Call [facility] light in reach. Side rails up X 1. Pillow given. Pulse ox on. NIBP on. 14:16 Derek Robin MD is Attending Physician. rn 14:22 Jazzmine Wilson, NAYANA is Primary Nurse. [facility] 14:24 Triage completed. [facility] 14:26 Initial lab(s) drawn, by ED staff, sent to lab. [facility] 14:36 Inserted saline lock: 20 gauge in left antecubital area, using aseptic technique. 5 14:37 CBC with Diff Sent. 5 15:17 XRAY Hand LEFT 3 View In Process Unspecified. EDMS 15:17 XRAY Forearm LEFT In Process Unspecified. EDMS 15:32 Forearm Left W Con In Process Unspecified. EDMS 16:20 Transfer initiated with [facility] transfer center; Pt clinical em1 information faxed over so that after hours personnel can review. 17:46 Milligan from [place] called to verify phone number and to let us know that they are still em1 waiting on the ER doctor to review pt clinicals. 19:36 Arm band placed on right wrist. ld1 19:36 No provider procedures requiring assistance completed. Patient transferred, IV remains ld1 in place. Administered Medications: 14:51 Drug: Zosyn (piperacillin-tazobactam) 3.375 grams Route: IVPB; Infused Over: 60 mins; sm5 Site: right antecubital; Outcome: 16:27 ER care complete, transfer ordered by . rn 19:36 Transferred by ground EMS to [facility] ld1 19:36 Condition: stable 19:36 Instructed on the need for transfer. 19:36 Patient left the ED. ld1 Signatures: Dispatcher [employer] EDMS Derek Robin MD MD rn Martinez, Robi [facility] Alba Mathis [facility] Latrice Ha RN RN ld1 Yenny Gallardo tp1 Jazzmine Wilson RN RN sm5 Corrections: (The following items were deleted from the chart) 14:36 14:34 Inserted saline lock: tp1 tp1
[2021-03-28 19:44] VITALS: TEMP 98.6
[2021-03-28 19:50] VITALS: BP 150/83; O2SAT 98
== END 2021-03-28 19:36 ==
LOC: ER 13:58
DX: L03.114 Cellulitis of left upper limb (principal); L02.414 Cutaneous abscess of left upper limb; E11.9 Type 2 diabetes mellitus without complications; F41.8 Other specified anxiety disorders; J44.9 Chronic obstructive pulmonary disease, unspecified; F17.210 Nicotine dependence, cigarettes, uncomplicated
CPT/HCPCS: 87040 ×2; 85025; 80048; 36415; 85610; 83605; 85730; 84145; 73201; 73130; 73090; 96374; 99285; Q9967; J2543

== ENCOUNTER 2022-07-08 09:24 | Inpatient (IN) | payer OTHER ==
--- OUTSIDE RECORDS SUMMARY | 2022-07-08 09:35 | XMS REPORT | Continuity of Care Document ---
:1945 Author Organization [facility] t Address [address] [place] [address] [place] [id number] Care Team Providers Name Role Phone KINA RIDLEY Attending Clinician Unavailable ADELINA ROSENTHAL Attending Clinician Unavailable CURTIS ILNDSAY I. Attending Clinician Unavailable PILAR JACOBSON Attending Clinician Unavailable KINA RIDLEY Admitting Clinician Unavailable ADELINA ROSENTHAL Admitting Clinician Unavailable CURTIS LINDSAY I. Admitting Clinician Unavailable PILAR JACOBSON Admitting Clinician Unavailable Payers Payer Name Policy Type Policy Number Effective Date Expiration Date S ource OUT OF STATE [place] [id number] 1999 00:00:00 [facility] CHOICE [id number] 2020 00:00:00 CARD AND PC3 Problems Condition Condition Condition Status Onset Resolution Last Treating Co mments Source Name Details Category Date Date Treatment Clinician Date Pneumonia Pneumonia Disease [facility] Acute Acute Disease Active [facility] cholecysti cholecysti 6-17 [facility]mi kes tis tis 00[facility]00: Medical 00 Center 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 3-05 [facility] mellitus mellitus 00:00: Medica l without without 00 Center complicati complicati on, on, without without long-term long-term current current use of use of insulin insulin Benign Benign Disease Active [facility] prostatic prostatic 3-05 [facility] hyperplasi hyperplasi 00:00: Me dical a with a with 00 Center urinary urinary frequency frequency Essential Essential Disease Active [facility] hypertensi hypertensi 07-03 Lakshmi kes on on 00:00: Medical 00 [place] Coronary Coronary Disease [facility] disease disease 00:00: Medical 00 [place] S/P brain S/P brain Disease Active [facility] surgery surgery 07[facility]03 [facility] 00:[facility]: Medical 00 [place] 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 07-02 [facility] 00:00: Medical 00 [place] Allergies, Adverse Reactions, Alerts Allergy Allergy Status Severity Reaction(s) Onset Inactive Treating Comm ents Source Name Type Date Date Clinician NO KNOWN Allergy Active [facility] ALLERGIE S Social History Social Habit Start Date Stop Date Quantity Comments Source History of tobacco Cigarette Smoker [facility] use [facility] Cigarettes smoked 2020-07-02 2020-07-02 [facility] current (pack per 00:00:00 00:00:00 [facility] day) - Reported Cigarette 2020-07-02 2020-07-02 [facility] pack-years 00:00:00 00:00:00 [facility] Tobacco use and 2020-07-02 2020-07-02 Never used [facility] exposure 00:00:00 00:00:00 [facility] Sex Ass[birth year] At [birth year] [facility] 00:00:00 00:00:00 [facility] Smoking Status Start Date Stop Date Source Current every day smoker 2020-07-02 00:00:00 [facility] Medications Ordered Filled Start Stop Current Ordering Indication Dosage Frequency Signature Comments Components Source Medication Medication Date Date Medication? Clinician (SIG) Name Name acetaminoph Yes 650mg Take [address] en 7-23 mg by [facility] (TYLENOL) 12:50: mouth Medical 325 MG 46 every 6 Center tablet (six) hours as needed for Pain or Fever. albuterol Yes 2{puff} Inhale [address] HFA 7-23 puffs by [facility] (VENTOLIN 12:50: mouth via Med ical HFA) 90 46 inhaler Center mcg/actuati every 6 on inhaler (six) hours as needed (Topical pain relief). ARIPiprazol Yes 2.5mg QD Take 2.[address] e (ABILIFY) 7-23 mg by [facility] 5 MG tablet 12:50: mouth Medic al 46 daily. Center e-lytes/car Yes 5mL [address] boxymethylc 7-23 Mucous [facility] ellulose 12:50: Membrane Medic al (ARTIFICIAL 46 route 4 Cente r SALIVA MM) (four) times daily as needed (Dry Mouth). budesonide- Yes 2{puff} Q.5D Inhale [address] formoteroL 7-23 puffs by [facility] (SYMBICORT) 12:50: mouth via M edical 80-4.5 46 inhaler 2 Center mcg/actuati (two) on inhaler times daily Rinse after use . busPIRone Yes 20mg Q.[id number] Take [address] (BUSPAR) 10 7-23 [id number] by mouth 3 [facility] MG tablet 12:50: 3D (three) Medic al 46 times Center daily. cyanocobala Yes 1000ug QD Take 1,[address] min, 7-23 mcg by [facility] vitamin 12:50: mouth Medical B-12, 1000 46 daily. Center MCG tablet docusate Yes 100mg QD Take [address] sodium 7-23 mg by [facility] (COLACE) 12:50: mouth Medical 100 MG 46 daily. Center capsule DULoxetine Yes 120mg QD Take [address] (CYMBALTA) 7-23 mg by [facility] 60 MG 12:50: mouth Medical capsule 46 daily. Center finasteride Yes 5mg QD Take [address] (PROSCAR) 5 7-23 by mouth Luke s mg tablet 12:50: daily. Medica l 46 Center fluticasone Yes 1{spray Q.5D [address] propionate 7-23 } Nasal [facility] (FLONASE) 12:50: route 2 Medic al 50 46 (two) Center mcg/actuati times on nasal daily. spray folic acid Yes 1mg QD Take [address] (FOLVITE) 1 7-23 by mouth Luke s MG tablet 12:50: daily. Medica l 46 Center multivitami Yes 1{tbl} QD Take [address] n per 7-23 tablet by [facility] tablet 12:50: mouth Medical 46 daily. Center oxybutynin Yes 5mg Q.41819641 Take [address] [address] (DITROPAN) 7-23 [id number] by mouth 3 [facility] 5 MG tablet 12:50: 3D (three) Med ical 46 times Center daily. tamsulosin Yes .4mg QD Take 0.[address] (FLOMAX) 7-23 mg by [facility] 0.4 mg Cap 12:50: mouth Medica l 24 hr 46 nightly. Center capsule traZODone Yes 50mg Take [address] (DESYREL) 7-23 by mouth [facility] 50 MG 12:50: every Medical tablet 46 night as Center needed for Sleep. omeprazole Yes 40mg Q.5D Take 1 [facility] (PriLOSEC) 6-18 capsule [facility] 40 MG 00:00: (40 mg Medical capsule 00 total) by Center mouth 2 (two) times daily. polyethylen Yes 17g QD Take [address] e glycol 6-18 by mouth [facility] (GLYCOLAX) 00:00: daily. Medic al 17 gram 00 Center packet senna-docus Yes 1{tbl} QD Take [address] ate 6-18 tablet by [facility] (SENOKOT S) 00:00: mouth Medic al 8.6-50 mg 00 nightly. Center per tablet thiamine Yes 100mg QD Take [address] 100 MG 6-18 tablet [facility] tablet 00:00: (100 mg Medical 00 total) by Center mouth daily. Vital Signs Vital Name Observation Time Observation [...] Procedures This patient has no known procedures. Plan of Care Planned Activity Planned Date Details Comments Source Future Scheduled 2022-05-[address] [facility] Test 00:00:00 (12+) [code = Medical Center DEPRESSION SCREENING (12+)] Future Scheduled 2022-05-05 FALLS RISK SCREENING [facility] Test 00:00:00 [code = FALLS RISK Medical C enter SCREENING] Future Scheduled 2022-01-03 INFLUENZA VACCINE (#1) [facility] Test 00:00:00 [code = INFLUENZA Medical Ce nter VACCINE (#1)] Future Scheduled 2021-07-[address] [facility] Test 00:00:00 Counseling and Medical Cente r Screening (12+) [code = Tobacco Cessation Counseling and Screening (12+)] Future Scheduled 2021-05-[address] [facility]shmi kes Test 00:00:00 measurement (procedure) [facility] [code = 98133163] Future Scheduled 1997 Screening for malignant [facility] Test 00:00:00 neoplasm of lung Medical Casie ter (procedure) [code = 187955983] Future Scheduled 1997 SHINGLES VACCINES ([address] [facility] Test 00:00:00 2) [code = SHINGLES Medical Center VACCINES (1 of 2)] Future Scheduled 1966 DTAP/TDAP/TD VACCINES [facility] Test 00:00:00 (1 - Tdap) [code = Medical C enter DTAP/TDAP/TD VACCINES (1 - Tdap)] Future Scheduled 1965 HEPATITIS C SCREENING [facility] Test 00:00:00 [code = HEPATITIS C Medical Center SCREENING] Future Scheduled 1957 DIABETIC EYE EXAM [code [facility] Test 00:00:00 = DIABETIC EYE EXAM] Medical Center Future Scheduled [address] [facility] Test 00:00:00 examination Medical Center (regime/therapy) [code = 117808235] Future Scheduled 1957 Urine screening for [facility] Test 00:00:00 protein (procedure) Medical Center [code = 759834238] Future Scheduled 1953 PNEUMOCOCCAL 65+ YRS ([address] [facility] Test 00:00:00 - PCV) [code = Medical Cente r PNEUMOCOCCAL 65+ YRS (1 - PCV)] Future Scheduled 1945 COVID-19 VACCINE (#1) [facility] Test 00:00:00 [code = COVID-[address] VACCINE (#1)] Future Scheduled 1947 CT Colonography (combo) [facility] Test 00:00:00 [code = CT Colonography [facility] (combo)] Future Scheduled 1947 Screening for malignant [facility] Test 00:00:00 neoplasm of colon Medical Ce nter (procedure) [code = 852567360] Future Scheduled 1947 Screening for malignant [facility] Test 00:00:00 neoplasm of colon Medical Ce nter (procedure) [code = 534491648] Future Scheduled 1947 Screening for malignant [facility] Test 00:00:00 neoplasm of colon Medical Ce nter (procedure) [code = 404250085] Future Scheduled 1947 Screening for malignant [facility] Test 00:00:00 neoplasm of colon Medical Ce nter (procedure) [code = 604523236] Future Scheduled 1945 Sigmoidoscopy [code = [facility] Test 00:00:00 Sigmoidoscopy] Medical Cente r Encounters Start End Encounter Admission Attending Care Care Encounter Source Date/Time Date/Time Type Type Clinicians Facility Department ID 2021-02-11 Inpatient ER AHMED, [facility] Pulmonology [id number] [facility] 04:13:37 HOMAIRA 2021-02-11 Inpatient ER AMEEN, [facility] Internal [id number] [facility] 04[facility]12[facility] 2020-10-14 [id number] 03:44:00 MOHAMMAD 2020-07-02 Inpatient ER [facility] Neurology [id number] [facility] 20:02:00 PILAR PAULINO Results Test Description Test Time Test Comments Results Result Comments Source POCT-GLUCOSE METER 2020-11-24 11:38:00 Test Item Value Reference Range Interpretation Comme nts POC-GLUCOSE METER ([facility]) 150 mg/dL 70-110 H : TESTED AT [facility] ODALYS BRICEÑO (test code = 1538) [place] [address]: Bowling Ball Grader And Marker/Techni michael ID = [id number] for Saad Avilez POCT-GLUCOSE [id number] 06:49:00 Test Item Value Reference Range Interpretation Comments POC-GLUCOSE METER 95 mg/dL 70-110 : TESTED A T [facility] (BEAKER) (test code = [address], 1538) [place] [address] 0: Bowling Ball Grader And Marker/Techni michael ID = [id number] for Saravanan s, Kebbah POCT-GLUCOSE [id number] 20:48:00 Test Item Value Reference Range Interpretation Comments POC-GLUCOSE METER 146 mg/dL 70-110 H : TESTED A T [facility] (BEAKER) (test code [address], = 1538) [place] [address] 0: Bowling Ball Grader And Marker/Techni michael ID = [id number] for Saravanan s, Kebbah POCT-GLUCOSE [id number] 17:03:00 Test Item Value Reference Range Interpretation Comments POC-GLUCOSE METER 117 mg/dL 70-110 H : TESTED A T [facility] (MIRIAN) (test code [address], = 1538) [facility] [address] 0: Bowling Ball Grader And Marker/Techni michael ID = [id number] for Rama Oneal ph [place], CHOLANGIOGRAM, [id number] 15:12:00 [facility] 1945 Sex: MFINAL REPORT Procedure: Cholecystostomy tube check History: cholangiogram [place]: Leif Ojeda MD. Adz Worker: None. Modality: Fluoroscopy DOSE REDUCTION: The examination was performed according to departmental dose-optimization program which includes automated exposurecontrol, adjustment of the mA and/or kV according to patient size. Fluoro time: 0.3 minutes. Radiation dose: 18.5 mGy air Kerma. Sedation: Not applicable Anesthesia: Not applicable. Estimated blood loss: 0 cc. Technique: The patient was laid supine on the fluoroscopy table. A pharmaceutical process engineer radiograph was obtained. Gentle injection of contrast [...] stable condition. Complications: None immediate. Findings: The cholecystostomy catheter is in the expected location. There are no radiopaque gallbladder calculi. Is prompt filling gallbladder the injected contrast passes down the cystic duct into the common bile duct. There is no common bile duct abnormality or filling defect. Is prompt passage of contrast material across the ampulla to the left. Thereis presence of multiple small non-radiopaque calculi in [...] patient. Signed: Leif Ojeda MDReport Verified Date/Time: 11/23/2020 15:12:15 Reading Location: [facility] Diagnostic Imaging Reading Room - [facility] 1.310.12 POCT-GLUCOSE [id number] 12:08:00 Test Item Value Reference Range Interpretation Comments POC-GLUCOSE METER 147 mg/dL 70-110 H : TESTED A T [facility] (BEAKER) (test code [address] DR, = 1538) [place] [address] 0: Bowling Ball Grader And Marker/Techni michael ID = [id number] for Rama Oneal ph POCT-GLUCOSE [id number] 07:08:00 Test Item Value Reference Range Interpretation Comments POC-GLUCOSE METER 94 mg/dL 70-110 : TESTED A T [facility] (BEAKER) (test code = [address], 1538) [place] [address] 0: Bowling Ball Grader And Marker/Techni michael ID = [id number] for Safia Galvin POCT-GLUCOSE [id number] 20:59:00 Test Item Value Reference Range Interpretation Comments POC-GLUCOSE METER 103 mg/dL 70-110 : TESTED A T [facility] [address] (BEAKER) (test code [address], = 1538) [place] [address] 0: Bowling Ball Grader And Marker/Techni michael ID = [id number] for Safia Galvin POCT-GLUCOSE [id number] 13:39:00 Test Item Value Reference Range Interpretation Comments POC-GLUCOSE METER 141 mg/dL 70-110 H : TESTED A T [facility] (BEAKER) (test code [address], = 1538) [place] [address] 0: Bowling Ball Grader And Marker/Techni michael ID = [id number] for Libby Hector POCT-GLUCOSE [id number] 05:52:00 Test Item Value Reference Range Interpretation Comments POC-GLUCOSE METER 108 mg/dL 70-110 : TESTED A T [facility] (BEAKER) (test code [address], = 1538) [place] [address] 0: Bowling Ball Grader And Marker/Techni michael ID = [id number] for Queenie Worthington POCT-GLUCOSE [id number] 21:46:00 Test Item Value Reference Range Interpretation Comments POC-GLUCOSE METER 125 mg/dL 70-110 H : TESTED A T [facility] (BEAKER) (test code [address], = 1538) [place] [address] 0: Bowling Ball Grader And Marker/Techni michael ID = [id number] for Liset Mcnally SARS-COV2/RT-PCR ([facility])2020-11-21 20:15:00 Test Item Value Reference Range Interpretation Comments SARS-COV2/RT-PCR Negative Negative The SARS-Co V-2 target (test code = 7021901) nuclei c acids are not detected in [...] below the analytical limit of detection in thisspecimen.This Xpert Xpress SARS-CoV-2/Flu/RSV test is a rapid, real-time RT-PCR test intended for the qualitative detection of nucleic acid from Xpert Xpress SARS-CoV-2/Flu/RSV in a nasopharyngeal swabspecimen collected from individuals suspected of Xpert Xpress SARS-CoV-2/Flu/RSV by their healthcareprovider. Results from maya Xpert Xpress SARS-CoV-2/Flu/RSV test should be correlated with the clinical history, epidemiological data, and other data available to the clinician evaluating the patient. Viral nucleic acid may persist in vivo, independent of virus viability. Detection of analyte target(s)does not imply that the corresponding virus(es) are infectious or are the causative agents for clinical symptoms.This test has not been Food and Drug Administration (FDA) cleared or approved and has been authorized by FDA under an Emergency Use Authorization (EUA). This EUA will be effective until thedeclaration that circumstances exist justifying the authorization of the emergency use of in vitro diagnostic tests for detection and/or diagnosis of COVID-19 is terminated under Section 564(b)(2) of the Act or the EUA is revoked under Section 564(g) of the Act.Fact Sheet for Healthcare Providers:https ://www.[employer]/Documents/Xpert%20Xpress%20SARS%20CoV-2/Fact%20Sheets/302-390 2%20BHWQ-ZXV-1%20HEALTHCARE%20PROVIDERS%20FACT%20SHEET.pdfFact Sheet for Healthcare Patients:https://www.[employer]/Docum ents/Xpert%20Xpress%20SARS%20Cov-2/Fact%20Sheets/302-3801%53RMUD-OTW-4%20PATIENT %20FACT%20SHEET.pdfPOCT-GLUCOSE [id number] 16:27:00 Test Item Value Reference Range Interpretation Comments POC-GLUCOSE METER 137 mg/dL 70-110 H : TESTED A T [facility] (Delfmems) (test code [address]NY [address] DR, = 1538) [place] [address] 0: Bowling Ball Grader And Marker/Techni michael ID = [id number] for Jaimie Ramos POCT-GLUCOSE [id number] 11:57:00 Test Item Value Reference Range Interpretation Comments POC-GLUCOSE METER 129 mg/dL 70-110 H : TESTED A T [facility] (BEAKER) (test code [address]NY [address], = 1538) [place] [address] 0: Bowling Ball Grader And Marker/Techni michael ID = [id number] for Jaimie Ramos POCT-GLUCOSE [id number] 06:06:00 Test Item Value Reference Range Interpretation Comments POC-GLUCOSE METER 111 mg/dL 70-110 H : TESTED A T [facility] (BEAKER) (test code SERAFINOO Ravi [address] DR, = 1538) [facility] 7707 0: Bowling Ball Grader And Marker/Techni michael ID = [id number] for Cindy Alvarez CBC W/PLT COUNT & AUTO [id number] 05:58:00 Test Item Value Reference Range Interpretation [...] 1+ few code = 478) BASIC METABOLIC [id number] 05:53:00 Test Item Value Reference Range Interpretation [...] S NOT APPLICABLE FOR DIALYSIS PATIEN TS. Bowling Ball Grader And Marker ID - Lisa [id number] 05:53:00 Test Item Value Reference Range Interpretation Comments MAGNESIUM (BEAKER) (test code = 2.2 mg/dL 1.5-3.0 627) [employer]ling [employer] Grader And Marker ID - Lisa [id number] 05:53:00 Test Item Value Reference Range Interpretation Comments PHOSPHORUS (BEAKER) (test code = 3.1 mg/dL 2.5-4.5 604) Bowling Ball Grader And Marker ID - Lisa TPOCT-GLUCOSE [id number] 20:19:00 Test Item Value Reference Range Interpretation Comments POC-GLUCOSE METER 143 mg/dL 70-110 H : TESTED A T [facility] (BEAKER) (test code [address], = 1538) [place] [address] 0: Bowling Ball Grader And Marker/Techni michael ID = [id number] for Queenie Worthington POCT-GLUCOSE [id number] 17:27:00 Test Item Value Reference Range Interpretation Comments POC-GLUCOSE METER 116 mg/dL 70-110 H : TESTED A T [facility] (BEAKER) (test code [address], = 1538) [place] [address] 0: Bowling Ball Grader And Marker/Techni michael ID = [id number] for Terrance Seaman POCT-GLUCOSE [id number] 12:11:00 Test Item Value Reference Range Interpretation Comments POC-GLUCOSE METER 147 mg/dL 70-110 H : TESTED A T [facility] (BEAKER) (test code [address]NY [address], = 1538) [place] [address] 0: Bowling Ball Grader And Marker/Techni michael ID = [id number] for Reina Mitchell POCT-GLUCOSE [id number] 06:39:00 Test Item Value Reference Range Interpretation Comments POC-GLUCOSE METER 120 mg/dL 70-110 H : TESTED A T [facility] (BEAKER) (test code [address], = 1538) [place] [address] 0: Bowling Ball Grader And Marker/Techni michael ID = [id number] for Laura Langford CBC W/PLT COUNT & AUTO [id number] 04:59:00 Test Item Value Reference Range Interpretation [...] 0-100 H (BEAKER) (test code = 700) [employer] Grader And Marker ID - SHANNONBASIC METABOLIC [id number] 04:30:00 Test Item Value Reference Range Interpretation [...] S NOT APPLICABLE FOR DIALYSIS PATIEN TS. Bowling Ball Grader And Marker ID - [id number] 04:30:00 Test Item Value Reference Range Interpretation Comments MAGNESIUM (BEAKER) (test code = 2.0 mg/dL 1.5-3.0 627) Bowling Ball Grader And Marker ID - [id number] 04:30:00 Test Item Value Reference Range Interpretation Comments PHOSPHORUS (BEAKER) (test code = 2.7 mg/dL 2.5-4.5 604) Bowling Ball Grader And Marker ID - SHANNONPOCT-GLUCOSE [id number] 20:07:00 Test Item Value Reference Range Interpretation Comments POC-GLUCOSE METER 110 mg/dL 70-110 : TESTED A T [facility] (BEAKER) (test code [address]NY [address], = 1538) [place] [address] 0: Bowling Ball Grader And Marker/Techni michael ID = [id number] for Maribel Eubanks POCT-GLUCOSE [id number] 18:53:00 Test Item Value Reference Range Interpretation Comments POC-GLUCOSE METER 114 mg/dL 70-110 H : TESTED A T [facility] (BEAKER) (test code [address]NY [address], = 1538) [place] [address] 0: Bowling Ball Grader And Marker/Techni michael ID = [id number] for Reina Mitchell RAD, CHEST, 1 VIEW, NON [id number] 15:02:00Reason for exam:->shortness of breathShould this be performed at the bedside?->Yes [facility] 1945 Sex: MFINAL REPORT Chest, one view. HISTORY: shortness of breath COMPARISON: Radiographfrom 11/17/2020 IMPRESSION: The support lines and tubes are unchanged in position. The small right pleural effusion and right basilar opacity are unchanged. There is some new streaky opacity in the leftlower lung which could be due to atelectasis or aspiration of depending on clinical setting. A left l ower lung calcified granuloma is unchanged. The cardiac silhouette is unchanged in size. No acute bone abnormality. Signed: Margie Foster Verified Date/Time: 11/19/2020 15:02:18 Reading Location:[facility] C013Y CT Body Reading Room POCT- GLUCOSE [id number] 11:52:00 Test Item Value Reference Range Interpretation Comments POC-GLUCOSE METER 137 mg/dL 70-110 H : TESTED A T [facility] (BEAKER) (test code LANNY BR[address] DR, = 1538) [place] [address] 0: Bowling Ball Grader And Marker/Techni michael ID = [id number] for Reina Mitchell POCT-GLUCOSE [id number] 06:29:00 Test Item Value Reference Range Interpretation Comments POC-GLUCOSE METER 115 mg/dL 70-110 H : TESTED A T [facility] (BEAKER) (test code LANNY BRICE[address] DR, = 1538) [place] [address] 0: Bowling Ball Grader And Marker/Techni michael ID = [id number] for Ray Yoderazon BASIC METABOLIC [id number] 04:54:00 Test Item Value Reference Range Interpretation [...] S NOT APPLICABLE FOR DIALYSIS PATIEN TS. Bowling Ball Grader And Marker ID - Lisa [id number] 04:54:00 Test Item Value Reference Range Interpretation Comments MAGNESIUM (BEAKER) (test code = 2.1 mg/dL 1.5-3.0 627) Bowling [employer] Grader And Marker ID - Lisa [id number] 04:54:00 Test Item Value Reference Range Interpretation Comments PHOSPHORUS (BEAKER) (test code = 2.5 mg/dL 2.5-4.5 604) Bowling Ball Grader And Marker ID - Lisa TCBC W/PLT COUNT & AUTO [id number] 04:49:00 Test Item Value Reference Range Interpretation [...] 1+ few (test code = 478) POCT-GLUCOSE [id number] 20:36:00 Test Item Value Reference Range Interpretation Comments POC-GLUCOSE METER 108 mg/dL 70-110 : TESTED A T [facility] (BEAKER) (test code [address]NY [address] DR, = 1538) [place] [address] 0: Bowling Ball Grader And Marker/Techni michael ID = [id number] for Siso n, [place] POCT-GLUCOSE [id number] 17:17:00 Test Item Value Reference Range Interpretation Comments POC-GLUCOSE METER 99 mg/dL 70-110 : TESTED A T [facility] (BEAKER) (test code = SERAFIN BRICE[address] DR, 1538) [place] [address] 0: Bowling Ball Grader And Marker/Techni michael ID = [id number] for Yosef Oneal phana POCT-GLUCOSE [id number] 11:30:00 Test Item Value Reference Range Interpretation Comments POC-GLUCOSE METER 211 mg/dL 70-110 H : TESTED A T [facility] (BEAKER) (test code [address]NY [address] DR, = 1538) [place] [address] 0: Bowling Ball Grader And Marker/Techni michael ID = [id number] for Rosemary es, Libby [facility], MULTI, PHARM, [id number] 10:12:00NPO AFTER MIDNIGHT. NO CAFFEINE STARTING NOW.Reason for exam:->elevated troponin [facility] CENTERName: DARYA TADEO : 1945 Sex: MFINAL REPORT PROCEDURE: Myocardial Perfusion Imaging with Pharmacologic Stress PHARMACOLOGIC INDICATION: Reason for pharmacologic stress [...] of 0.4 mg Lexiscan within 30 seconds. T he patient's heart rate went from 81 beats/minute [...] PVC and did not demonstrate any ST-segment changes during stress. FINDINGS:Theoverall quality of the study is good. Perfusion SPECT images at rest and stress shows a large sized,severe intensity, fixed inferior to infero- apical perfusion defect. There is a second, medium size,mild-moderate intensity, lateral reversible perfusion defect. The left ventricular (LV) cavity appears normal. The right ventricular (RV) cavity appears normal. The left ventricular ejection fraction (EF) is mildly depressed at 42%. Gated SPECT images shows inferior wall akinesis. IMPRESSION: Abnormalmyocardial perfusion stress test. Overall left ventricular function is mildly depressed with inferior wall akinesis. Signed: Monica Golden Verified Date/Time: 11/18/2020 10:12:50 CBC W/PLT COUNT & AUTO [id number] 05:28:00 Test Item Value Reference Range Interpretation [...] (test code = 1+ few 477) POCT-GLUCOSE [id number] 05:18:00 Test Item Value Reference Range Interpretation Comments POC-GLUCOSE METER 130 mg/dL 70-110 H : TESTED A T [facility] (BEAKER) (test code CHASEWOO Ravi [address] DR, = 1538) [facility] 7707 0: Bowling Ball Grader And Marker/Techni michael ID = [id number] for Yannick Stubbs BASIC METABOLIC [id number] 04:20:00 Test Item Value Reference Range Interpretation [...] S NOT APPLICABLE FOR DIALYSIS PATIEN TS. Bowling Ball Grader And Marker ID - [id number] 04:20:00 Test Item Value Reference Range Interpretation Comments MAGNESIUM (BEAKER) (test code = 2.2 mg/dL 1.5-3.0 627) Bowling Ball Grader And Marker ID - [id number] 04:20:00 Test Item Value Reference Range Interpretation Comments PHOSPHORUS (BEAKER) (test code = 2.5 mg/dL 2.5-4.5 604) Bowling Ball Grader And Marker ID - KAVITAPOCT-GLUCOSE [id number] 20:16:00 Test Item Value Reference Range Interpretation Comments POC-GLUCOSE METER 141 mg/dL 70-110 H : TESTED A T [facility] (BEAKER) (test code LANNY BRICE[address] DR, = 1538) [place] [address] 0: Bowling Ball Grader And Marker/Techni michael ID = [id number] for Yannick Stubbs POCT-GLUCOSE [id number] 17:09:00 Test Item Value Reference Range Interpretation Comments POC-GLUCOSE METER 176 mg/dL 70-110 H : TESTED A T [facility] (BEAKER) (test code LANNY BRICE[address] DR, = 1538) [place] [address] 0: Bowling Ball Grader And Marker/Techni michael ID = [id number] for Terrance Seaman BODY FLUID CULTURE + GRAM [id number] 12:57:00 Test Item Value Reference Range Interpretation Comments CULTURE (BEAKER) (test No growth code = 1095) GRAM STAIN RESULT <1+ White blood cells (BEAKER) (test code = seen 1123) GRAM STAIN RESULT No organisms seen (BEAKER) (test code = 15258) POCT-GLUCOSE [id number] 11:04:00 Test Item Value Reference Range Interpretation Comments POC-GLUCOSE METER 117 mg/dL 70-110 H : TESTED A T [facility] (BEAKER) (test code LANNY BRICE[address] DR, = 1538) [place] [address] 0: Bowling Ball Grader And Marker/Techni michael ID = [id number] for Terrance Seaman RAD, CHEST, 1 VIEW, NON [id number] 08:03:00Reason for exam:- >PneumoniaShould this be performed at the bedside?->Yes [facility] 1945 Sex: MFINAL REPORT Chest AP portable erect COMPARISON STUDY: 11/15/2020 History provided: Pneumonia Small pleural effusion remains on the right with atelectatic changes in the right lower lobe. Left lung remains clear. Normal heart size and vascularity. Signed: Richard Montiel Verified Date/Time: 11/17/2020 08:03:31 Reading Location: [facility] [place] [address] POCT- GLUCOSE [id number] 06:10:00 Test Item Value Reference Range Interpretation Comments POC-GLUCOSE METER 114 mg/dL 70-110 H : TESTED A T [facility] (MIRIAN) (test code LANNY BRICE[address] DR, = 1538) [place] [address] 0: Bowling Ball Grader And Marker/Techni michael ID = [id number] for Queenie Worthington CBC W/PLT COUNT & AUTO [id number] 06:05:00 Test Item Value Reference Range Interpretation Comments WHITE BLOOD CELL COUNT (MIRIAN) 6.3 K/ L 4.0-10.0 (test code = [...] code = 1+ few 477) BASIC METABOLIC [id number] 05:52:00 Test Item Value Reference Range Interpretation [...] S NOT APPLICABLE FOR DIALYSIS PATIEN TS. Bowling Ball Grader And Marker ID - Lisa [id number] 05:52:00 Test Item Value Reference Range Interpretation Comments MAGNESIUM (BEAKER) (test code = 2.2 mg/dL 1.5-3.0 627) Bowling Ball Grader And Marker ID - Lisa [id number] 05:52:00 Test Item Value Reference Range Interpretation Comments PHOSPHORUS (BEAKER) (test code = 3.1 mg/dL 2.5-4.5 604) Bowling Ball Grader And Marker ID - Lisa TPOCT-GLUCOSE [id number] 21:25:00 Test Item Value Reference Range Interpretation Comments POC-GLUCOSE METER 133 mg/dL 70-110 H : TESTED A T [facility] (BEAKER) (test code LANNY BRICE[address] DR, = 1536) [place] [address] 0: Bowling Ball Grader And Marker/Techni michael ID = [id number] for Reymundo Perry POCT-GLUCOSE [id number] 16:30:00 Test Item Value Reference Range Interpretation Comments POC-GLUCOSE METER 125 mg/dL 70-110 H : TESTED A T [facility] (BEAKER) (test code LANNY BRICE[address] DR, = 1538) [place] [address] 0: Bowling Ball Grader And Marker/Techni michael ID = [id number] for Claribel Seamaninjc POCT-GLUCOSE [id number] 11:01:00 Test Item Value Reference Range Interpretation Comments POC-GLUCOSE METER 135 mg/dL 70-110 H : TESTED A T [facility] (BEAKER) (test code LANNY BRICE[address] DR, = 1538) [place] [address] 0: Bowling Ball Grader And Marker/Techni michael ID = [id number] for Claribel Seamaninwa POCT-GLUCOSE [id number] 06:34:00 Test Item Value Reference Range Interpretation Comments POC-GLUCOSE METER 127 mg/dL 70-110 H : TESTED A T [facility] (BEAKER) (test code LANNY BRICE[address] DR, = 1538) [place] [address] 0: Bowling Ball Grader And Marker/Techni michael ID = [id number] for Roxane pollyJannette BASIC METABOLIC [id number] 04:57:00 Test Item Value Reference Range Interpretation [...] S NOT APPLICABLE FOR DIALYSIS PATIEN TS. Bowling Ball Grader And Marker ID - [id number] 04:57:00 Test Item Value Reference Range Interpretation Comments MAGNESIUM (BEAKER) (test code = 2.2 mg/dL 1.5-3.0 627) Bowling Ball Grader And Marker ID - [id number] 04:57:00 Test Item Value Reference Range Interpretation Comments PHOSPHORUS (BEAKER) (test code = 3.1 mg/dL 2.5-4.5 604) Bowling Ball Grader And Marker ID - KAVITACBC W/PLT COUNT & AUTO [id number] 04:54:00 Test Item Value Reference Range Interpretation [...] PERCENT (BEAKER) (test code = 2801) POCT-GLUCOSE [id number] 20:29:00 Test Item Value Reference Range Interpretation Comments POC-GLUCOSE METER 148 mg/dL 70-110 H : TESTED A T [facility] (BEAKER) (test code LANNY BRICE[address] DR, = 1538) [place] [address] 0: Bowling Ball Grader And Marker/Techni michael ID = [id number] for Roxane Jannette matias POCT-GLUCOSE [id number] 17:39:00 Test Item Value Reference Range Interpretation Comments POC-GLUCOSE METER 126 mg/dL 70-110 H : TESTED A T [facility] (BEAKER) (test code LANNY BRICE[address] DR, = 1538) [place] [address] 0: Bowling Ball Grader And Marker/Techni micheal ID = [id number] for Terrance Seaman HEMOGLOBIN AND [id number] 14:26:00 Test Item Value Reference Range Interpretation Comments HEMOGLOBIN (BEAKER) (test code = 8.6 GM/DL 13.0-16.8 L 410) HEMATOCRIT (BEAKER) (test code = 28.2 % 36.0-50.0 L 411) POCT-GLUCOSE [id number] 12:53:00 Test Item Value Reference Range Interpretation Comments POC-GLUCOSE METER 117 mg/dL 70-110 H : TESTED A T [facility] (BEAKER) (test code LANNY BRICE[address] DR, = 1538) [place] [address] 0: Bowling Ball Grader And Marker/Techni michael ID = [id number] for Tory il, Rosemary BODY FLUID CELL COUNT WITH [id number] 09:25:00 Test Item Value Reference Range Interpretation Comments APPEARANCE FLUID Bloody Clear A (BEAKER) (test code = 510) COLOR FLUID Red Colorless, Straw A (BEAKER) (test code = 511) RBC FLUID (BEAKER) 67158 /cu mm See_Comment H [Automat ed (test [...] (BEAKER) 0 % (test code = 492) TVCO-QNUQVGOHHCT-07 Da Perez, 0 (BEAKER) (test M.D. (electronic code = 2620) signature) CONTAINER BODY Sterile Container FLUID (BEAKER) (test code = 2873) RAD, CHEST, 1 VIEW, NON [id number] 08:05:00Reason for exam:- >PneumoniaShould this be performed at the bedside?->Yes [facility] 1945 Sex: MFINAL REPORT CHEST AP PORTABLE Comparison exam: 11/14/2020 History provided: Pneumonia Heart size normal. Small residual pleural effusion on the right remains with associated atelectatic changes. Left lung clear. Normal vascularity. Signed: Richard Montiel Verified Date/Time: 11/15/2020 08:05:31 Reading Location: [facility] Diagnostic Imaging Reading Room - [facility] 1310.12 POCT- GLUCOSE [id number] 06:03:00 Test Item Value Reference Range Interpretation Comments POC-GLUCOSE METER 115 mg/dL 70-110 H : TESTED A T [facility] (BEAKER) (test code LANNY BRICE[address] DR, = 1538) [place] [address] 0: Bowling Ball Grader And Marker/Techni michael ID = [id number] for Marissa Aguilar CBC W/PLT COUNT & AUTO [id number] 04:31:00 Test Item Value Reference Range Interpretation [...] PERCENT (BEAKER) (test code = 2801) (MANUAL DIFFERENTIAL)2020-11-15 04:31:00 Test Item Value Reference [...] code = 1+ few 768) BASIC METABOLIC [id number] 04:13:00 Test Item Value Reference Range Interpretation [...] S NOT APPLICABLE FOR DIALYSIS PATIEN TS. Bowling Ball Grader And Marker ID - [id number] 22:11:00 Test Item Value Reference Range Interpretation Comments POC-GLUCOSE METER 125 mg/dL 70-110 H : TESTED A T [facility] (BEAKER) (test code LANNY BRICEÑ[address] DR, = 1538) [facility] 7707 0: Bowling Ball Grader And Marker/Techni michael ID = [id number] for Fiath Vital PROTEIN, BODY [id number] 21:04:00 Test Item Value Reference Range Interpretation Comments PROTEIN FLUID (BEAKER) 4.5 g/dL Light's criteria identifies (test code = 579) effusions if one or more are pre Absence of reference range indicates that normals have not been defined.Assay performance has not been validated for this type of specimen.Bowling Ball Grader And Marker ID - [id number] DEHYDROGENASE (LDH), BODY [id number] 21:00:00 Test Item Value Reference Range Interpretation Comments LACTATE DEHYDROGENASE FLUID 685 U/L Light's criteria (BEAKER) (test code = 634) identifies effusions if one or more are pre Absence of reference range indicates that normals have not been defined.Assay performance has not been validated for this type of specimen.Bowling Ball Grader And Marker ID - [id number] 17:29:00 Test Item Value Reference Range Interpretation Comments POC-GLUCOSE METER 241 mg/dL 70-110 H : TESTED A T [facility] (MIRIAN) (test code LANNY BRICE[address] DR, = 1538) [place] [address] 0: Bowling Ball Grader And Marker/Techni michael ID = [id number] for Davidson Edwards POCT-GLUCOSE [id number] 16:32:00 Test Item Value Reference Range Interpretation Comments POC-GLUCOSE METER 116 mg/dL 70-110 H : TESTED A T [facility] (MIRIAN) (test code LANNY BRICEÑ[address] DR, = 1538) [place] [address] 0: Bowling Ball Grader And Marker/Techni michael ID = [id number] for Davidson Edwards RAD, CHEST, 1 VIEW, NON [id number] 16:04:00Reason for exam:->Post Right ThoracentesisShould this be performed at the bedside?->Yes [facility] 1945 Sex: MFINAL REPORT CHEST AP PORTABLE ERECT COMPARISON STUDY: 11/13/2020 History provided: Status post right thoracentesis Diminished volume of pleural fluid on the right following thoracentesis. No pneumothorax. Continued atelectatic changes within the right lower lobe. Left lung clear. Signed: Richard Montiel MDReport Verified Date/Time: 11/14/2020 16:04:07 Reading Location: [facility] Diagnostic Imaging Reading Room - [facility] 1.310.12 U/S, [id number] 15:58:00 Laterality?->RightReason for exam:->pleural effusionLabs to be Ordered:- >Other (please add comment) [facility] : 1945 [...] space was accessed with a one-stick 5 Scottish sheathed needle. Approximately 500 cc of yellow, clear fluid was aspirated. The catheter was removed and a sterile dressing was applied. The patient tolerated the procedure well without apparent complications. The fluid was submitted to the laboratory as requested. IMPRESSION: Uneventful ultrasound guided thoracentesis. Signed: Richard Montieleport Verified Date/Time: 11/14/2020 15:58:23 Reading Location: [facility] Diagnostic Imaging Reading Room [place] [address].12 BASI METABOLIC [id number] 05:24:00 Test Item Value Reference Range Interpretation [...] S NOT APPLICABLE FOR DIALYSIS PATIEN TS. Bowling Ball Grader And Marker ID - [id number] W/PLT COUNT & AUTO [id number] 05:13:00 Test Item Value Reference Range Interpretation [...] PERCENT (BEAKER) (test code = 2801) POCT-GLUCOSE [id number] 20:54:00 Test Item Value Reference Range Interpretation Comments POC-GLUCOSE METER 144 mg/dL 70-110 H : TESTED A T [facility] (BEAKER) (test code SHANEWOO Ravi BR[address] DR, = 1538) [place] [address] 0: Bowling Ball Grader And Marker/Techni michael ID = [id number] for Hao Vitala [id number] 08:49:00 Test Item Value Reference Range Interpretation Comments MAGNESIUM (BEAKER) (test code = 2.4 mg/dL 1.5-3.0 627) Bowling Ball Grader And Marker ID - NLYLERAD, CHEST, 1 VIEW, NON [id number] 08:46:00Reason for exam:->Right Thoracentesis has been ordered. Dx: PneumoniaShould this be performed at the bedside?->Yes [facility] 1945 Sex: MFINAL REPORT Chest AP portable erect COMPARISON STUDY: 10/15/2020 History provided: Pleural effusion Small pleural effusion on the right with right basilar atelectasis. Left lung clear. Normal heart size and vascularity. Signed: Richard Montiel MDReport Verified Date/Time: 11/13/2020 08:46:48 Reading Location: [facility] Diagnostic Imaging Reading Room [place] [address] TROPONIN [id number] 06:38:00 Test Item Value Reference Range Interpretation Comments TROPONIN I (BEAKER) (test code = 0.22 ng/mL 0.00-0.03 397) Troponin I (TnI) levels [...] failure, acidosis, acute neurological disease, and persistent tachyarrhythmia.Bowling Ball Grader And Marker ID - [id number] W/PLT COUNT & AUTO [id number] 04:12:00 Test Item Value Reference Range Interpretation [...] 1+ few (test code = 478) LIPID [id number] 04:11:00 Test Item Value Reference Range Interpretation Comments TRIGLYCERIDES (BEAKER) (test code = 171 mg/dL 540) CHOLESTEROL (BEAKER) (test code = 73 mg/dL 631) HDL CHOLESTEROL (BEAKER) (test code 11 mg/dL = 976) LDL CHOLESTEROL CALCULATED (BEAKER) 28 mg/dL (test code = 633) Triglyceride Reference Range: Low Risk <150 Borderline 150-199 High Risk 200- 499 Very High Risk >=500Cholesterol Reference Range: Low Risk <200 Borderline 200-239 High Risk >240HDL Cholesterol Reference Range: Low Risk >=60 High Risk <40LDL Cholesterol Reference Range: Optimal <100 Near Optimal 100-129 Borderline 130-159 High 160-189 Very High >=190 Bowling Ball Grader And Marker ID - [id number] METABOLIC [id number] 04:06:00 Test Item Value Reference Range Interpretation [...] S NOT APPLICABLE FOR DIALYSIS PATIEN TS. Bowling Ball Grader And Marker ID - [id number] 00:39:00 Test Item Value Reference Range Interpretation Comments TROPONIN I (BEAKER) (test code = 0.26 ng/mL 0.00-0.03 HH 397) Troponin I (TnI) levels must be [...] failure, acidosis, acute neurological disease, and persistent tachyarrhythmia.Bowling Ball Grader And Marker ID - [id number] TIME/INR 2020-11-13 00:24:00 Test Item Value Reference Range Interpretation Comments PROTIME (BEAKER) 11.8 seconds 9.8-12.0 Final Infor mation (test code = 759) (Auto Outp ut) INR (BEAKER) (test 1.10 See_Comment Final Inf ormation code = 370) (Auto Output) [Automated mess age] The system Runteq generated this result transmitted ref erence range: <=5.90. The reference range was not used to int erpret this result as normal/abnormal . RECOMMENDED COUMADIN/WARFARIN INR THERAPY RANGESSTANDARD DOSE: 2.0 - 3.0 Includes: PROPHYLAXIS for venous thrombosis, systemic embolization; TREATMENT for venous thrombosis and/or pulmonary embolus.HIGH RISK: Target INR is 2.5-3.5 for patients with mechanical heart valves.TROPONIN [id number] 18:59:00 Test Item Value Reference Range Interpretation Comments TROPONIN I (BEAKER) (test code = 0.26 ng/mL 0.00-0.03 HH 397) Troponin I (TnI) levels must be [...] failure, acidosis, acute neurological disease, and persistent tachyarrhythmia.Bowling Ball Grader And Marker ID - BRUCEHEPATIC FUNCTION [id number] 11:48:00 Test Item Value Reference Range Interpretation [...] (test code = 10 U/L 5-50 347) Bowling Ball Grader And Marker ID - ORENBLOOD GAS, [id number] 08:16:00 Test Item Value Reference Range Interpretation [...] pg/mL 0-100 H (test code = 700) Bowling Ball Grader And Marker ID - CHOPKaiaTROPONIN [id number] 07:21:00 Test Item Value Reference Range Interpretation Comments TROPONIN I (BEAKER) (test code = 0.20 ng/mL 0.00-0.03 HH 397) Troponin I (TnI) levels must be [...] failure, acidosis, acute neurological disease, and persistent tachyarrhythmia.Bowling Ball Grader And Marker ID - CHOPZPOCT-GLUCOSE METER 2020-11-12 07:10:00 Test Item Value Reference Range Interpretation Comments POC-GLUCOSE METER 131 mg/dL 70-110 H : TESTED A T [facility] (BEAKER) (test code [address], = 1538) [facility] 7707 0: Bowling Ball Grader And Marker/Techni michael ID = [id number] for Pascual Trejo HEMOGLOBIN [id number] 06:51:00 Test Item Value Reference Range Interpretation Comments HEMOGLOBIN A1C (BEAKER) (test code = 5.7 % 4.3-6.1 368) Bowling Ball Grader And Marker ID - CHOPZBASIC METABOLIC [id number] 05:07:00 Test Item Value Reference Range Interpretation [...] S NOT APPLICABLE FOR DIALYSIS PATIEN TS. Bowling Ball Grader And Marker ID - CHOPZCBC W/PLT COUNT & AUTO [id number] 05:01:00 Test Item Value Reference Range Interpretation [...] PERCENT (BEAKER) (test code = 2801) POCT-GLUCOSE [id number] 07:49:00 Test Item Value Reference Range Interpretation Comments POC-GLUCOSE METER 90 mg/dL 70-110 : TESTED A T [facility] 6720 (BEAKER) (test code = [place], 1538) [id number]: Bowling Ball Grader And Marker/Techni michael ID = [id number] for SHAHRIAR SCHWARZ [id number] 07:11:00 Test Item Value Reference Range Interpretation Comments MAGNESIUM (BEAKER) 2.2 mg/dL 1.6-2.6 Specimen slightly (test code = 627) hemolyzed Bowling Ball Grader And Marker ID - [id number] 07:11:00 Test Item Value Reference Range Interpretation Comments PHOSPHORUS (BEAKER) 3.8 mg/dL 2.3-4.7 Specimen slightly (test code = 604) hemolyzed Bowling Ball Grader And Marker ID - DBBASIC METABOLIC [id number] 07:11:00 Test Item Value Reference Range Interpretation [...] S NOT APPLICABLE FOR DIALYSIS PATIEN TS. Bowling Ball Grader And Marker ID - DBCBC W/PLT COUNT & AUTO [id number] 06:59:00 Test Item Value Reference Range Interpretation [...] PERCENT (BEAKER) (test code = 2801) BLOOD [id number] 04:00:00 Test Item Value Reference Range Interpretation Comments CULTURE (BEAKER) (test No growth in 5 days code = 1095) BLOOD [id number] 04:00:00 Test Item Value Reference Range Interpretation Comments CULTURE (BEAKER) (test No growth in 5 days code = 1095) POCT-GLUCOSE [id number] 21:20:00 Test Item Value Reference Range Interpretation Comments POC-GLUCOSE METER 171 mg/dL 70-110 H : Notified RN/MD: (BEAKER) (test code = TESTED AT [facility] 6720 1538) [place], [address]: Bowling Ball Grader And Marker/Techni michael ID = [id number] for ANNAMARIE MARLOW POCT-GLUCOSE [id number] 17:48:00 Test Item Value Reference Range Interpretation Comments POC-GLUCOSE METER 149 mg/dL 70-110 H : TESTED A T [facility] 6720 (BEAKER) (test code = SHER Estevez [facility], 1538) [address]: Bowling Ball Grader And Marker/Techni michael ID = [id number] for SHAHRIAR HANDLEY BODY FLUID CULTURE + GRAM [id number] 13:13:00 Test Item Value Reference Range Interpretation Comments CULTURE (AKER) (test KLEBSIELLA A 2+ Kl ebsiella code [...] S Sulfamethoxazole (test code = 47) CULTURE (AKER) (test ESCHERICHIA COLI A 2 + Escherichia [...] No organisms seen (BEAKER) (test code = 132674) POCT-GLUCOSE [id number] 12:08:00 Test Item Value Reference Range Interpretation Comments POC-GLUCOSE METER 191 mg/dL 70-110 H : TESTED A T [facility] 6720 (BEAKER) (test code = [facility], 1538) [address]: Bowling Ball Grader And Marker/Techni michael ID = [id number] for SHAHRIAR HANDLEY HEMOGLOBIN [id number] 08:36:00 Test Item Value Reference Range Interpretation Comments HEMOGLOBIN A1C (BEAKER) (test code = 6.4 % 4.3-6.1 H 368) POCT-GLUCOSE [id number] 08:18:00 Test Item Value Reference Range Interpretation Comments POC-GLUCOSE METER 151 mg/dL 70-110 H : TESTED A T [facility] 6720 (BEAKER) (test code = [facility], 1538) [address]: Bowling Ball Grader And Marker/Techni michael ID = [id number] for SHAHRIAR HANDLEY MRSA [id number] 08:18:00 Test Item Value Reference Range Interpretation Comments CULTURE (BEAKER) (test code No MRSA isolated = 1095) [id number] 06:41:00 Test Item Value Reference Range Interpretation Comments MAGNESIUM (BEAKER) (test code = 2.1 mg/dL 1.6-2.6 627) Bowling Ball Grader And Marker ID - ALBINO [id number] 06:41:00 Test Item Value Reference Range Interpretation Comments PHOSPHORUS (BEAKER) (test code = 3.2 mg/dL 2.3-4.7 604) Bowling Ball Grader And Marker ID - ALBINO MBASIC METABOLIC [id number] 06:41:00 Test Item Value Reference Range Interpretation [...] S NOT APPLICABLE FOR DIALYSIS PATIEN TS. Bowling Ball Grader And Marker ID - ALBINO MPOCT-GLUCOSE [id number] 21:12:00 Test Item Value Reference Range Interpretation Comments POC-GLUCOSE METER 135 mg/dL 70-110 H : TESTED A T [facility] 6720 (Delfmems) (test code = [facility], 153) [address]: Bowling Ball Grader And Marker/Techni michael ID = [id number] for TRACY NINA WATKINSA POCT-GLUCOSE [id number] 17:00:00 Test Item Value Reference Range Interpretation Comments POC-GLUCOSE METER 140 mg/dL 70-110 H : TESTED A T [facility] 6720 (Delfmems) (test code = [facility], 1538) [address]: Bowling Ball Grader And Marker/Techni michael ID = [id number] for Ca vitt, Eminae POCT-GLUCOSE [id number] 12:23:00 Test Item Value Reference Range Interpretation Comments POC-GLUCOSE METER 189 mg/dL 70-110 H : TESTED A T [facility] 6720 (Delfmems) (test code = [facility], 1538) [address]: Bowling Ball Grader And Marker/Techni michael ID = [id number] for Ca vitt, Eminae POCT-GLUCOSE [id number] 07:46:00 Test Item Value Reference Range Interpretation Comments POC-GLUCOSE METER 107 mg/dL 70-110 : TESTED A T [facility] 6720 (BEUlaola) (test code = [facility], 1538) [address]: Bowling Ball Grader And Marker/Techni michael ID = [id number] for Ca vitt, Eminae HIV-1 ANTIGEN WITH HIV-1/2 [id number] 06:57:00 Test Item Value Reference Range Interpretation Comments HIV-1 ANTIGEN WITH HIV 1\T\2 Nonreactive Nonreactive ANTIBODY (2) (BEAKER) (test code = 2586) Bowling Ball Grader And Marker ID - BSBASIC METABOLIC [id number] 06:46:00 Test Item Value Reference Range Interpretation [...] S NOT APPLICABLE FOR DIALYSIS PATIEN TS. Bowling Ball Grader And Marker ID - [id number] 06:46:00 Test Item Value Reference Range Interpretation Comments MAGNESIUM (BEAKER) (test code = 2.1 mg/dL 1.6-2.6 627) Bowling Ball Grader And Marker ID - [id number] 06:46:00 Test Item Value Reference Range Interpretation Comments PHOSPHORUS (BEAKER) (test code = 2.6 mg/dL 2.3-4.7 604) Bowling Ball Grader And Marker ID - BSCBC W/PLT COUNT & AUTO [id number] 06:42:00 Test Item Value Reference Range Interpretation [...] PERCENT (BEAKER) (test code = 2801) POCT-GLUCOSE [id number] 21:42:00 Test Item Value Reference Range Interpretation Comments POC-GLUCOSE METER 118 mg/dL 70-110 H : TESTED A T [facility] 6720 (BEAKER) (test code = [place], 1538) [address]: Bowling Ball Grader And Marker/Techni michael ID = [id number] for Cr oss, Claysie POCT-GLUCOSE [id number] 17:32:00 Test Item Value Reference Range Interpretation Comments POC-GLUCOSE METER 111 mg/dL 70-110 H : TESTED A T [facility] 6720 (BEAKER) (test code = [place], 1538) [address]: Bowling Ball Grader And Marker/Techni michael ID = [id number] for An Mary martin POCT-GLUCOSE [id number] 12:21:00 Test Item Value Reference Range Interpretation Comments POC-GLUCOSE METER 140 mg/dL 70-110 H : TESTED A T [facility] 6720 (BEAKER) (test code = SHER Estevez [place] [place], 1538) [id number]: Bowling Ball Grader And Marker/Techni michael ID = [id number] for An Mary martin CT, BRAIN, WITHOUT [id number] 10:01:00Unlisted Reason for Exam - Click Yes and Enter Reason Below->YesUnlisted Reason for Exam->f/u SDH [facility] : 1945 Sex: MFINAL REPORT CT Head without contrast CLINICAL HISTORY: Unlisted Reason for Examf/u SDH TECHNIQUE: Contiguous axial CT images through the head without contrast. This exam was performed according to the departmental dose optimization program which includes automated exposure control,adjustment of the mA and/or kV according to [...] subdural hematomas are grossly unchanged. Signed: Case Abrams MDReport Verified Date/Time: 10/17/2020 10:01:47 Reading Location: [facility] C013V Neuro Reading Room BASIC METABOLIC [id number] 07:33:00 Test Item Value Reference Range Interpretation [...] S NOT APPLICABLE FOR DIALYSIS PATIEN TS. Bowling Ball Grader And Marker ID - ALBINO [id number] 07:33:00 Test Item Value Reference Range Interpretation Comments MAGNESIUM (BEAKER) (test code = 2.3 mg/dL 1.6-2.6 627) Bowling Ball Grader And Marker ID - ALBINO [id number] 07:33:00 Test Item Value Reference Range Interpretation Comments PHOSPHORUS (BEAKER) (test code = 2.9 mg/dL 2.3-4.7 604) Bowling Ball Grader And Marker ID - ALBINO MHEPATIC FUNCTION [id number] 07:33:00 Test Item Value Reference Range Interpretation [...] (test code = 16 U/L 6-55 347) Bowling Ball Grader And Marker ID - ALBINO MCBC W/PLT COUNT & AUTO [id number] 07:26:00 Test Item Value Reference Range Interpretation [...] PERCENT (BEAKER) (test code = 2801) POCT-GLUCOSE [id number] 07:24:00 Test Item Value Reference Range Interpretation Comments POC-GLUCOSE METER 111 mg/dL 70-110 H : TESTED A T [facility] 6720 (BEAKER) (test code = [facility], 1538) 72703: Bowling Ball Grader And Marker/Techni michael ID = [id number] for An Mary martin POCT-GLUCOSE [id number] 21:58:00 Test Item Value Reference Range Interpretation Comments POC-GLUCOSE METER 177 mg/dL 70-110 H : TESTED A T [facility] 6720 (BEAKER) (test code = [facility], 1538) 19829: Bowling Ball Grader And Marker/Techni michael ID = [id number] for Cr oss, [place] U/S, DRAINAGE, W/ CATH [id number] 18:56:00Reason for exam:->ACUTE [facility]IS[facility] : 1945 Sex: MFINAL REPORT Percutaneous cholecystostomy tube placement. History: Acute cholecystitis Raftsman: Leif Ojeda MD. Adz Worker: None. Modality: Ultrasound Anesthesia: Lidocaine local infiltration. Estimated blood loss: < 5 cc. SEDATION: Moderate sedation was administered. 1 milligram of Versed and 50 micrograms of fentanyl IV was used for moderate sedation monitored undermy direction. Total intraservice time of sedation was 10 minutes. The patient's vital signs were monitored throughout the procedure and recorded in the patient's medical record by the nurse. Technique:Discussion of risks, benefits, and alternatives were made [...] gallbladder lumen. Following sequential dilatation, an 8 Scottish locking pigtail drainage catheter was advanced into [...] to the laboratory Impression: Successful ultrasound-guided 8 Scottish percutaneous transhepatic cholecystostomy placement as described above. Thank you for the opportunity to assist in the care of your patient. Signed: Leif Ojeda MDReport Verified Date/Time: 10/16/2020 18:56:16 Reading Location: [place] [address] Angio Body ReadingRoom HEPATIC FUNCTION [id number] 16:10:00 Test Item Value Reference Range Interpretation [...] (test code = 14 U/L 6-55 347) Bowling Ball Grader And Marker ID - DBOperator ID - DBCT, [id number] 11:13:00Unlisted Reason for Exam - Click Yes and Enter Reason Below->YesUnlisted Reason for Exam- >RUQ and epigastric pain with possible acute sylvia, eval for biliary pancreatitis and possible complications of pancreatitisWill this procedure require oral contrast?->No [facility] : 1945 Sex: MFINAL REPORT CT, ABDOMEN \T\ PELVIS, WITH IV CONTRAST HISTORY: Abdominal pain, feverRUQ and epigastric pain with possible acute sylvia, eval for biliary pancreatitis and possible complications of pancreatitis COMPARISON: Abdominal ultrasound 10/15/2020 TECHNIQUE: CT of the abdomen andpelvis WITH intravenous contrast and WITHOUT oral contrast. [...] solid pulmonary nodule.Liver: 23 cm hepatomegaly.Gallbladder and bileducts: The gallbladder is overdistended with gallbladder wall [...] bilaterallyBowel: Nondilated bowel with no wall thickening. Moderateamount of stool throughout the colon. Appendix not visualized, however there is no right lower quadrant inflammatory change to suggest acute appendicitis.Bladder: Unremarkable.Reproductive organs: Unremarkable.Lymph nodes: Upper retroperitoneal and serenity hepatis lymph nodes up to 11 mm short axis, nons pecific but most likely reactive.Peritoneum: Stranding about the gallbladder. Small perihepatic freefluid is likely reactive.Vessels: Moderate atherosclerotic calcifications. Small ulcerated plaque ofthe infrarenal abdominal aorta without aneurysm. Mild narrowing of the proximal celiac axisAbdominalwall: A 2.1 x 2.5 x 0.9 cm [...] Wiggins Verified Date/Time: 10/16/2020 11:13:59 Reading Location: [facility] B1 C013Y CT Body Reading Room Electronicallysigned by: PIOTR WIGGINS MD on 10/16/2020 11:13 AMPOCT-GLUCOSE [id number] 08:22:00 Test Item Value Reference Range Interpretation Comments POC-GLUCOSE METER 129 mg/dL 70-110 H : TESTED A T [facility] 6720 (BEAKER) (test code = [facility] [place], 1538) 28[address]: Bowling Ball Grader And Marker/Techni michael ID = [id number] for SHAHRIAR HANDLEY BASIC METABOLIC [id number] 07:09:00 Test Item Value Reference Range Interpretation [...] S NOT APPLICABLE FOR DIALYSIS PATIEN TS. Bowling Ball Grader And Marker ID - [id number] 07:09:00 Test Item Value Reference Range Interpretation Comments MAGNESIUM (BEAKER) (test code = 2.1 mg/dL 1.6-2.6 627) Bowling Ball Grader And Marker ID - [id number] 07:09:00 Test Item Value Reference Range Interpretation Comments PHOSPHORUS (BEAKER) (test code = 2.1 mg/dL 2.3-4.7 L 604) Bowling Ball Grader And Marker ID - EMERSONCBC W/PLT COUNT & AUTO [id number] 06:45:00 Test Item Value Reference Range Interpretation [...] (BEAKER) (test code = 2801) U/S, ABDOMINAL, [id number] 01:25:00Abdomen limited area? Add comment if clarification is needed.->Gall BladderReason for exam:->RUQ, epigastric pain; evaluate for biliary pancreatitis [facility] : 1945 Sex: MFINAL REPORT Exam: Limited abdominal ultrasound. Clinical History: RUQ, epigastric pain; evaluate for biliary pancreatitis . Comparison: No prior study for direct comparison. Findings: Sonographic evaluation of the right upper quadrant of the abdomen was performed. Liver: 15.2 cm inlength at the right midclavicular line. Normal echogenicity. [...] 9.2 x 5 x 5.1 cm with corticalthickness of 1.0 cm. Normal cortical echogenicity. No mass. No shadowing calculus. No hydronephrosis. IVC/Aorta: Segments partially seen. Unremarkable. Impression: Trace pericholecystic fluid and positive sonographic Lopes's sign, which may represent acute cholecystitis in the proper clinical setting. A HIDA scan may be performed to evaluate cystic duct patency as clinically warranted. No biliary ductal dilatation. Signed: Aly Lopesort Verified Date/Time: 10/16/2020 01:25:51 POCT-GLUCOSE [id number] 21:25:00 Test Item Value Reference Range Interpretation Comments POC-GLUCOSE METER 178 mg/dL 70-110 H : TESTED A T [facility] 6720 (BEAKER) (test code = [facility], 1538) 89226: Bowling Ball Grader And Marker/Techni michael ID = [id number] for DO JEANA AL POCT-GLUCOSE [id number] 16:48:00 Test Item Value Reference Range Interpretation Comments POC-GLUCOSE METER 208 mg/dL 70-110 H : TESTED A T [facility] 6720 (BEAKER) (test code = [facility] R [facility], 1538) 51343: Bowling Ball Grader And Marker/Techni michael ID = [id number] for RO DGERS, JAMECA POCT-GLUCOSE [id number] 13:01:00 Test Item Value Reference Range Interpretation Comments POC-GLUCOSE METER 251 mg/dL 70-110 H : TESTED A T [facility] 6720 (BEAKER) (test code = [facility] R [facility], 1538) 38774: Bowling Ball Grader And Marker/Techni michael ID = [id number] for RO DGERS, JAMECA SARS-COV2/RT-PCR ([facility])2020-10-15 12:38:00 Test Item Value Reference Range Interpretation Comments SARS-COV2/RT-PCR (test Negative Not Detected, Negative, code = 4320291) See external report for linked test SARS-COV-2 PERFORMING LAB [facility] DANNY (test code = 3510987) Negative result for this test determines that [...] justifying the authorization of the emergency use ofin vitro diagnostic tests for detection and/or diagnosis of COVID-19 is terminated under Section 564(b)(2) of the Act or the EUA is revoked under Section 564(g) of the Act.Fact Sheet for Healthcare Prov iders:https://www.HeyCrowd.Voicendo/sites/default/files/product/documents/Fact_Sheet_HC _Szcyvdrsv_Eaea_MIVD-WgZ-4.pdfFact Sheet for Healthcare Patients:https://www.HeyCrowd.com/sites/default/files/product/docume nts/Kumo_Wnkhj_Qpcfjfjs_Rysy_EWZU-ZlI-9.pdfPerforming Laboratory:[facility], [place] [id number] 12:14:00 Test Item Value Reference Range Interpretation Comments LIPASE (BEAKER) (test code = 749) 10 U/L 8-78 Bowling Ball Grader And Marker ID - DBBLOOD GAS, [id number] 08:49:00 Test Item Value Reference Range Interpretation [...] (BEAKER) (test code = 1819) 21.0 POCT-GLUCOSE [id number] 08:06:00 Test Item Value Reference Range Interpretation Comments POC-GLUCOSE METER 214 mg/dL 70-110 H : TESTED A T [facility] 6720 (BEAKER) (test code = [place], 1538) 46[address]: Bowling Ball Grader And Marker/Techni michael ID = [id number] for SHAHRIAR HANDLEY RAD, CHEST, 1 VIEW, NON [id number] 07:03:00Reason for exam:->FeverShould this be performed at the bedside?->Yes [facility] : 1945 Sex: MFINAL REPORT TECHNIQUE: Frontal view of the chest. INDICATION: Fever. COMPARISON:Radiograph from 07/02/2020. FINDINGS: LINES/TUBES: None. LUNGS: A left basilar calcified granuloma isunchanged. Pulmonary venous congestion. There is some patchy opacity of the right lateral base whichis new. PLEURA: Mild blunting of the right costophrenic sulcus. HEART AND MEDIASTINUM: The cardiac silhouette is normal in size. Mild calcification of the descending thoracic aorta. SOFT TISSUES AND BONES: Unremarkable. IMPRESSION: There is a small right pleural effusion with some right basilar opacity. This could be atelectasis or pneumonia depending on clinical setting. A follow-up chest radiographis recommended eight weeks after treatment to document resolution. Pulmonary venous congestion. Ca patton: Margie Foster MDReport Verified Date/Time: 10/15/2020 07:03:46 Reading Location: [address] Ortho Consult Reading Room LACTIC ACID, [id number] 06:11:00 Test Item Value Reference Range Interpretation Comments LACTATE BLOOD VENOUS (2) (BEAKER) 0.90 mmol/L 0.50-2.20 (test code = 2872) Bowling Ball Grader And Marker ID - DBCBC W/PLT COUNT & AUTO [id number] 06:01:00 Test Item Value Reference Range Interpretation [...] PERCENT (BEAKER) (test code = 2801) POCT-GLUCOSE [id number] 00:46:00 Test Item Value Reference Range Interpretation Comments POC-GLUCOSE METER 150 mg/dL 70-110 H : [facility] (BEAKER[facility] (test code = [place], 1538) 78[address]: Bowling Ball Grader And Marker/Techni michael ID = [id number] for JENNIFER CRAFT URINALYSIS W/ [id number] 00:42:00 Test Item Value Reference Range Interpretation [...] = 1521) SOURCE(BEAKER) (test code = 2795) Bowling Ball Grader And Marker ID - [auto]Bowling Ball Grader And Marker ID - techPOCT-GLUCOSE [id number] 16:26:00 Test Item Value Reference Range Interpretation Comments POC-GLUCOSE METER 121 mg/dL 70-110 H : TESTED A T [facility] 6720 (BEAKER) (test code = [facility], 1538) 93354: Bowling Ball Grader And Marker/Techni michael ID = [id number] for Magan grant (pca2)Zoila HIGH SENSITIVITY TROPONIN [id number] 11:57:00 Test Item Value Reference Range Interpretation Comments HIGH SENSITIVITY 29 pg/ml See_Comment [Automated message] TROPONIN I (test code = The system which 6352792) generated this result transmitted ref erence range: <=35. Th e reference range was not used to int erpret this result as normal/abnormal . Bowling Ball Grader And Marker ID - ALBINO [facility] [place] [facility] STAT High Sensitivity Troponin-I results should be used in conjunction with other diagnostic information such as ECG, clinical observations and information, and patient symptoms to aid in the diagnosis of [place].POCT-GLUCOSE [id number] 11:04:00 Test Item Value Reference Range Interpretation Comments POC-GLUCOSE METER 137 mg/dL 70-110 H : TESTED A T [facility] 6720 (BEAKER) (test code = [facility], 1538) 09376: Bowling Ball Grader And Marker/Techni michael ID = [id number] for Magan grant (pca2)Zoila RAPID DRUG SCREEN, [id number] 10:57:00 Test Item Value Reference Range Interpretation [...] ng/mLOpiate 300 ng/mLMethadone 300 ng/mLAmphetamine/ 1000 ng/mL MethamphetamineThisassay provides an unconfirmed qualitative test result for the clinical management of patients in emergency situations. Chain of custody not maintained. Some ejnj-umm-xsulrjl medications, as well as adulterants, may cause inaccurate results. Clinical correlation should be applied. A more comprehensive drug screen or confirmation of a detected drug may be performed upon request.Bowling Ball Grader And Marker ID - ALBINO MOperator ID - [auto]CT, BRAIN, WITHOUT [id number] 10:42:00Unlisted Reason for Exam - Click Yes and Enter Reason Below->YesUnlisted Reason for Exam->R SDH frontoparietal convexity. [facility] : 1945 Sex: MFINAL [...] measuring up to 0.9 cm in maximum thickness, decreased from 1.8 cm on the previous exam. [...] size of right convexity subdural hematoma, and resolution of left convexity subdural hematoma. Signed: Heidy Caicedo Verified Date/Time: 10/14/2020 10:42:46 PROTHROMBIN TIME/INR 2020-10-14 10:00:00 Test Item Value Reference Range Interpretation Comments PROTIME (BEAKER) 9.9 seconds 9.8-12.0 (test code = 759) INR (BEAKER) (test 0.96 See_Comment [Automat ed message] code = 370) The system Runteq generated this result transmitted ref erence range: <=5.90. The reference range was not used to interpr et this result as normal/abnormal . RECOMMENDED COUMADIN/WARFARIN INR THERAPY RANGESSTANDARD DOSE: 2.0 - 3.0 Includes: PROPHYLAXIS for venous thrombosis, systemic embolization; TREATMENT for venous thrombosis and/or pulmonary embolus.HIGH RISK: Target INR is 2.5-3.5 for patients with mechanical heart valves.COMPREHENSIVE METABOLIC PANEL 2020-10-14 07:47:00 Test Item Value Reference Range Interpretation [...] S NOT APPLICABLE FOR DIALYSIS PATIEN TS. Bowling Ball Grader And Marker ID - ALBINO [id number] 07:47:00 Test Item Value Reference Range Interpretation Comments MAGNESIUM (BEAKER) (test code = 2.2 mg/dL 1.6-2.6 627) Bowling Ball Grader And Marker ID - ALBINO [id number] 07:47:00 Test Item Value Reference Range Interpretation Comments PHOSPHORUS (BEAKER) (test code = 2.3 mg/dL 2.3-4.7 604) Bowling Ball Grader And Marker ID - ALBINO MHEPATIC FUNCTION [id number] 07:47:00 Test Item Value Reference Range Interpretation [...] (test code = 29 U/L 6-55 347) Bowling Ball Grader And Marker ID - ALBINO MHIGH SENSITIVITY TROPONIN [id number] 07:30:00 Test Item Value Reference Range Interpretation Comments HIGH SENSITIVITY 27 pg/ml See_Comment [Automated message] TROPONIN I (test code = The system which [id number]) generated this result transmitted ref erence range: <=35. Th e reference range was not used to int erpret this result as normal/abnormal . Bowling Ball Grader And Marker ID - ALBINO MThe [employer]IST[facility] [place] ATTORNEY STAT High Sensitivity Troponin-I results should be used in conjunction with other diagnostic information such as ECG, clinical observations and information, and patient symptoms to aid in the diagnosis of [place].[id number] 07:13:00 Test Item Value Reference Range Interpretation Comments PARTIAL THROMBOPLASTIN TIME 32.0 seconds 22.5-36.0 (BEAKER) (test code = 760) [id number] 07:12:00 Test Item Value Reference Range Interpretation Comments FIBRINOGEN LEVEL (BEAKER) (test 470 mg/dl 225-434 H code = 658) CBC W/PLT COUNT & AUTO [id number] 07:11:00 Test Item Value Reference Range Interpretation [...] PERCENT (BEAKER) (test code = 2801) POCT-GLUCOSE [id number] 07:02:00 Test Item Value Reference Range Interpretation Comments POC-GLUCOSE METER 151 mg/dL 70-110 H : TESTED A T [facility] 6720 (BEAKER) (test code = [place], 1538) 13746: Bowling Ball Grader And Marker/Techni michael ID = [id number] for JENNIFER CRAFT POCT-GLUCOSE [id number] 06:48:00 Test Item Value Reference Range Interpretation Comments POC-GLUCOSE METER 156 mg/dL 70-110 H : TESTED A T [facility] 6720 (BEAKER) (test code = [facility], 1538) 92105: Bowling Ball Grader And Marker/Techni michael ID = [id number] for KLEVER CAMARA VITAMIN D, [id number] 20:23:00 Test Item Value Reference Range Interpretation Comments VITAMIN D 25-OH (BEANGI) (test 51.9 ng/mL 6.6-49.9 H code = 2764) Effective 02/12/2017: Reference Range ChangeNew: 6.6-49.9 ng/mL Previous: 13.0- 47.8 ng/mLRecommendedVitamin D Target Range: 30.0-40.0 ng/mLOperator ID - DB [id number] 19:35:00 Test Item Value Reference Range Interpretation Comments FERRITIN (BEAKER) (test code = 135.65 ng/mL 5.00-275.00 361) Bowling Ball Grader And Marker ID - BRANDON CVITAMIN B12 AND [id number] 19:35:00 Test Item Value Reference Range Interpretation Comments VITAMIN B12 1504 pg/mL 213-816 H (ANGI) (test code = 774) FOLATE (BEAKER) 19.30 ng/mL See_Comment [Automated message] (test code = 362) The system which generated this result transmitted ref erence range: >=7.00. The reference range was not used to interpr et this result as normal/abnormal . Bowling Ball Grader And Marker ID - EDASIOperator ID - BRANDON CPOCT-GLUCOSE [id number] 12:22:00 Test Item Value Reference Range Interpretation Comments POC-GLUCOSE METER 181 mg/dL 70-110 H : TESTED A T [facility] 6720 (BEUlaola) (test code [facility], = 1538) 16696: Bowling Ball Grader And Marker/Techni michael ID = [id number] for TSEG GAI, TSIGHEREDA POCT-GLUCOSE [id number] 07:53:00 Test Item Value Reference Range Interpretation Comments POC-GLUCOSE METER 119 mg/dL 70-110 H : TESTED A T [facility] 6720 (BEAKER) (test code [facility], = 1538) 87862: Bowling Ball Grader And Marker/Techni michael ID = [id number] for TSEG GAI, TSIGHEREDA BASIC METABOLIC [id number] 07:20:00 Test Item Value Reference Range Interpretation [...] S NOT APPLICABLE FOR DIALYSIS PATIEN TS. Bowling Ball Grader And Marker ID - [id number] 07:20:00 Test Item Value Reference Range Interpretation Comments MAGNESIUM (BEAKER) (test code = 2.2 mg/dL 1.6-2.6 627) Bowling Ball Grader And Marker ID - [id number] 07:20:00 Test Item Value Reference Range Interpretation Comments PHOSPHORUS (BEAKER) (test code = 4.0 mg/dL 2.3-4.7 604) Bowling Ball Grader And Marker ID - EDASIIRON, TIBC, % SAT. (WITHOUT FERRITIN)2020-07-07 06:52:00 Test Item Value Reference Range Interpretation Comments IRON (BEAKER) (test code = 547) 75.0 ug/dL 40.0-160.0 TOTAL IRON BINDING CAPACITY 261 ug/dL 250-450 (BEAKER) (test code = 769) IRON % SATURATION (2) (BEAKER) 29 % 20-55 (test code = 2590) Bowling Ball Grader And Marker ID - EDASICBC W/PLT COUNT & AUTO [id number] 06:47:00 Test Item Value Reference Range Interpretation [...] PERCENT (BEAKER) (test code = 2801) POCT-GLUCOSE [id number] 11:33:00 Test Item Value Reference Range Interpretation Comments POC-GLUCOSE METER 135 mg/dL 70-110 H : TESTED A [place] [facility] 6720 (MIRIAN) (test code = [place], 1538) [address]: Bowling Ball Grader And Marker/Techni michael ID = [id number] for Dolly Lopez CT, BRAIN, WITHOUT [id number] 09:48:00Unlisted Reason for Exam - Click Yes and Enter Reason Below->YesUnlisted Reason for Exam->SDH [facility] : 1945 Sex: MFINAL REPORT [...] midline shift has decreased. Signed: Case Abrams [facility] HE[facility] SYSTEMSeport Verified Date/Time:07/06/2020 09:48:25 Reading Location: [facility] C013V Neuro Reading Room POCT-GLUCOSE [id number] 06:37:00 Test Item Value Reference Range Interpretation Comments POC-GLUCOSE METER 137 mg/dL 70-110 H : TESTED A T [facility] 6720 (BEAKER) (test code = [place], 1538) 30247: Bowling Ball Grader And Marker/Techni michael ID = [id number] for ELYSE MARLOW BASIC METABOLIC [id number] 04:16:00 Test Item Value Reference Range Interpretation [...] S NOT APPLICABLE FOR DIALYSIS PATIEN TS. Bowling Ball Grader And Marker ID - ALBINO [id number] 04:16:00 Test Item Value Reference Range Interpretation Comments MAGNESIUM (BEAKER) (test code = 2.0 mg/dL 1.6-2.6 627) Bowling Ball Grader And Marker ID - ALBINO [id number] 04:16:00 Test Item Value Reference Range Interpretation Comments PHOSPHORUS (BEAKER) (test code = 2.6 mg/dL 2.3-4.7 604) Bowling Ball Grader And Marker ID - ALBINO MCBC W/PLT COUNT & AUTO [id number] 03:46:00 Test Item Value Reference Range Interpretation [...] PERCENT (BEAKER) (test code = 2801) POCT-GLUCOSE [id number] 00:34:00 Test Item Value Reference Range Interpretation Comments POC-GLUCOSE METER 115 mg/dL 70-110 H : [facility] (BEAKER) (test code = [facility], 1538) 35222: Bowling Ball Grader And Marker/Techni michael ID = [id number] for Maryan Mcfarlane POCT-GLUCOSE [id number] 17:25:00 Test Item Value Reference Range Interpretation Comments POC-GLUCOSE METER 111 mg/dL 70-110 H : [facility] ([facility]) (test code = [facility], 1538) 67899: Bowling Ball Grader And Marker/Techni michael ID = [id number] for Dolly Lopez POCT-GLUCOSE [id number] 12:32:00 Test Item Value Reference Range Interpretation Comments POC-GLUCOSE METER 157 mg/dL 70-110 H : Notified RN/MD: ([facility]) (test code = TESTED AT [facility] 6720 1538) [facility], [address]: Bowling Ball Grader And Marker/Techni michael ID = [id number] for Dolly Lopez TROPONIN [id number] 07:49:00 Test Item Value Reference Range Interpretation [...] failure, acidosis, acute neurological disease, and persistent tachyarrhythmia.Bowling Ball Grader And Marker ID - ROSNORMGBASIC METABOLIC [id number] 03:30:00 Test Item Value Reference Range Interpretation [...] S NOT APPLICABLE FOR DIALYSIS PATIEN TS. Bowling Ball Grader And Marker ID - ALBINO [id number] 03:30:00 Test Item Value Reference Range Interpretation Comments MAGNESIUM (BEAKER) (test code = 2.1 mg/dL 1.6-2.6 627) Bowling Ball Grader And Marker ID - ALBINO [id number] 03:30:00 Test Item Value Reference Range Interpretation Comments PHOSPHORUS (BEAKER) (test code = 2.3 mg/dL 2.3-4.7 604) Bowling Ball Grader And Marker ID - ALBINO MCBC W/PLT COUNT & AUTO [id number] 03:20:00 Test Item Value Reference Range Interpretation [...] PERCENT (BEAKER) (test code = 2801) POCT-GLUCOSE [id number] 00:09:00 Test Item Value Reference Range Interpretation Comments POC-GLUCOSE METER 108 mg/dL 70-110 : TESTED A T [facility] 6720 (BEAKER) (test code = [facility], 153) 18704: Bowling Ball Grader And Marker/Techni michael ID = [id number] for ELYSE MARLOW POCT-GLUCOSE [id number] 17:45:00 Test Item Value Reference Range Interpretation Comments POC-GLUCOSE METER 108 mg/dL 70-110 : TESTED A T [facility] 6720 (BEAKER) (test code = [facility], 153) 1975[address]: Bowling Ball Grader And Marker/Techni michael ID = [id number] for LL OYD, TIKEYA BASIC METABOLIC [id number] 11:59:00 Test Item Value Reference Range Interpretation [...] S NOT APPLICABLE FOR DIALYSIS PATIEN TS. Bowling Ball Grader And Marker ID - SMPOCT-GLUCOSE [id number] 11:46:00 Test Item Value Reference Range Interpretation Comments POC-GLUCOSE METER 149 mg/dL 70-110 H : TESTED A T [facility] 6720 (BEAKER) (test code = [place] [facility], 1538) [id number]: Bowling Ball Grader And Marker/Techni michael ID = [id number] for Wi lliams, Irene HEMOGLOBIN AND [id number] 11:37:00 Test Item Value Reference Range Interpretation Comments HEMOGLOBIN (BEAKER) (test code = 9.2 GM/DL 13.7-17.5 L 410) HEMATOCRIT (BEAKER) (test code = 29.3 % 40.1-51.0 L 411) Bowling Ball Grader And Marker ID - [id number] KINASE (CK)2020-07-04 10:38:00 Test Item Value Reference Range Interpretation Comments CREATINE KINASE TOTAL (BEAKER) (test 71 U/L 29-200 code = 380) Bowling Ball Grader And Marker ID - ALBINO MPOCT-GLUCOSE [id number] 08:00:00 Test Item Value Reference Range Interpretation Comments POC-GLUCOSE METER 105 mg/dL 70-110 : TESTED A T [facility] 6720 (BEAKER) (test code = [facility] [employer] [facility], 1538) [id number]: Bowling Ball Grader And Marker/Techni michael ID = [id number] for LL OYD, TIKEYA BASIC METABOLIC [id number] 03:45:00 Test Item Value Reference Range Interpretation [...] S NOT APPLICABLE FOR DIALYSIS PATIEN TS. Bowling Ball Grader And Marker ID - [id number] 03:45:00 Test Item Value Reference Range Interpretation Comments MAGNESIUM (BEAKER) (test code = 2.1 mg/dL 1.6-2.6 627) Bowling Ball Grader And Marker ID - [id number] 03:45:00 Test Item Value Reference Range Interpretation Comments PHOSPHORUS (BEAKER) (test code = 2.9 mg/dL 2.3-4.7 604) Bowling Ball Grader And Marker ID - SMPROTHROMBIN [id number] 03:37:00 Test Item Value Reference Range Interpretation Comments PROTIME (BEAKER) 14.7 seconds 11.9-14.2 H (test code = 759) INR (BEAKER) (test 1.18 See_Comment [Automat ed message] code = 370) The system Runteq generated this result transmitted ref erence range: <=5.90. The reference range was not used to int erpret this result as normal/abnormal . Effective 09/30/2018: PT Reference Range ChangeNew: 11.9-14.2 Previous: 11.7- 14.7RECOMMENDED COUMADIN/WARFARIN INR THERAPY RANGESSTANDARD DOSE: 2.0-3.0 Includes: PROPHYLAXIS for venous thrombosis, systemic embolization; TREATMENT for venous thrombosis and/or pulmonary embolus.HIGH RISK: Target INR is 2.5-3.5 for patients wiht mechanical heart valves.[id number] 03:37:00 Test Item Value Reference Range Interpretation Comments PARTIAL THROMBOPLASTIN TIME 31.1 seconds 22.5-36.0 (BEAKER) (test code = 760) CBC W/PLT COUNT & AUTO [id number] 03:34:00 Test Item Value Reference Range Interpretation [...] (BEAKER) (test code = 2801) HEMOGLOBIN AND [id number] 21:51:00 Test Item Value Reference Range Interpretation Comments HEMOGLOBIN (BEAKER) (test code = 9.1 GM/DL 13.7-17.5 L 410) HEMATOCRIT (BEAKER) (test code = 28.6 % 40.1-51.0 L 411) Bowling Ball Grader And Marker ID - [id number]-GLUCOSE [id number] 21:44:00 Test Item Value Reference Range Interpretation Comments POC-GLUCOSE METER 158 mg/dL 70-110 H : TESTED A T [facility] 6720 ([facility]) (test code = [facility], 1538) [address]: Bowling Ball Grader And Marker/Techni michael ID = [id number] for ELYSE MARLOW POCT-GLUCOSE [id number] 16:56:00 Test Item Value Reference Range Interpretation Comments POC-GLUCOSE METER 144 mg/dL 70-110 H : Notified RN/MD: ([facility]) (test code = TESTED AT [facility] 6720 1538) [facility], [address]: Bowling Ball Grader And Marker/Techni michael ID = [id number] for ISMAEL GRAMAJO THROMBOELASTOGRAPH (TEG)2020-07-03 13:35:00 Test [...] 0.0-5.0 code = 1414) CT, BRAIN, WITHOUT [id number] 08:29:00Unlisted Reason for Exam - Click Yes and Enter Reason Below->No [facility] 1945 Sex: MFINAL REPORT CT Head without contrast CLINICAL HISTORY: Cerebral hemorrhage suspected TECHNIQUE: Contiguous axial CT images through the head without contrast. This exam was performedaccording to the departmental dose optimization program which includes automated exposure control, adjustment of the mA and/or kV according to the patient size, and/or use of an iterative reconstruction technique. COMPARISON: None FINDINGS: A slightly hypodense right cerebral convexity subdural hematoma measures 1.4 cm in thickness. A slightly hypodense left cerebral convexity subdural hematoma measures 0.6 cm in thickness. There is mass effect on the right greater than left cerebral hemispheres with leftward midline shift of the septum pellucidum by 0.7 cm. There is mild asymmetric dilatation of the left temporal horn compatible with [...] with the critical care neurologist at the time of dictation. Signed: Case Abramseport Verified Date/Time: 07/03/2020 08:29:18 Reading Location: [address] Neuro Reading Room HEMOGLOBIN [id number] 08:21:00 Test Item Value Reference Range Interpretation Comments HEMOGLOBIN A1C (BEAKER) (test code = 5.7 % 4.3-6.1 368) [id number] 07:19:00 Test Item Value Reference Range Interpretation Comments MAGNESIUM (BEAKER) 2.3 mg/dL 1.6-2.6 Specimen slightly (test code = 627) hemolyzed Bowling Ball Grader And Marker ID - ALBINO [id number] 07:19:00 Test Item Value Reference Range Interpretation Comments PHOSPHORUS (BEAKER) 2.2 mg/dL 2.3-4.7 L Specimen slightly (test code = 604) hemolyzed Bowling Ball Grader And Marker ID - ALBINO MBASIC METABOLIC [id number] 05:56:00 Test Item Value Reference Range Interpretation [...] S NOT APPLICABLE FOR DIALYSIS PATIEN TS. Bowling Ball Grader And Marker ID - ALBINO MCBC W/PLT COUNT & AUTO [id number] 05:06:00 Test Item Value Reference Range Interpretation [...] (test code = 2801) TSH/FREE T4 IF [id number] 04:35:00 Test Item Value Reference Range Interpretation Comments THYROID STIMULATING HORMONE 0.793 uIU/mL 0.350-4.940 (BEAKER) (test code = 772) Bowling Ball Grader And Marker ID - ALBINO MBASIC METABOLIC [id number] 04:21:00 Test Item Value Reference Range Interpretation [...] S NOT APPLICABLE FOR DIALYSIS PATIEN TS. Bowling Ball Grader And Marker ID - ALBINO [id number] 04:19:00 Test Item Value Reference Range Interpretation Comments MAGNESIUM (BEAKER) (test code = 1.4 mg/dL 1.6-2.6 L 627) Bowling Ball Grader And Marker ID - ALBINO MLIPID [id number] 04:19:00 Test Item Value Reference Range Interpretation Comments TRIGLYCERIDES (BEAKER) (test code = 73 mg/dL 540) CHOLESTEROL (BEAKER) (test code = 70 mg/dL 631) HDL CHOLESTEROL (BEAKER) (test code 20 mg/dL = 976) LDL CHOLESTEROL CALCULATED (MIRIAN) 35 mg/dL (test code = 633) Triglyceride Reference Range: Low Risk <150 Borderline 150-199 High Risk 200- 499 Very High Risk >=500Cholesterol Reference Range: Low Risk <200 Borderline 200-239 High Risk >240HDL Cholesterol Reference Range: Low Risk >=60 High Risk <40LDL Cholesterol Reference Range: Optimal <100 Near Optimal 100-129 Borderline 130-159 High 160-189 Very High >=190 Bowling Ball Grader And Marker ID - ALBINO [id number] 04:19:00 Test Item Value Reference Range Interpretation Comments LIPASE (MIRIAN) (test code = 749) 5 U/L 8-78 L Bowling Ball Grader And Marker ID - ALBINO MSARS-COV2/RT-PCR ([facility])2020-07-03 01:30:00 Test Item Value Reference Range Interpretation Comments SARS-COV2/RT-PCR (test code Negative Not Detected, Negative, = 3811887) See external report for linked test SARS-COV-2 PERFORMING LAB [facility] (test code = 6800874) Negative results do not preclude SARS-CoV-2 infection [...] of the Act.Fact Sheet for Healthcare Pro viders:https://www.[employer]/Documents/Xpert%20Xpress%20SARS%20CoV-2/Fact%20Sh eets/302-3802%78JQYY-SFF-3%20HEALTHCARE%20PROVIDERS%20FACT%20SHEET.pdfFact Sheet for Healthcare Patients:https://www.[employer]/Documents/Xpert%20Xpress%20SARS%20CoV-2/Fact%20Sheets/302-3801%20SARS-COV -2%20PATIENT%20FACT%20SHEET.pdfPerforming Laboratory:[facility], [place] [address]BUC, CHEST, 1 VIEW, NON [id number] 23:20:00Reason for exam:->preopShould this be performed at the bedside?->Yes[facility] : 1945 Sex: MFINAL REPORT Chest one view. Clinical history: preop Comparison: None. Technique:A single frontal view of the chest was obtained. Findings: The cardiac silhouette is normal size. The aorta is tortuous and atherosclerotic. There is a calcified left lower lobe granuloma. There is no focal pulmonary consolidation, pleural effusion or pneumothorax. There is no pulmonary edema. The osseous structures are unremarkable. Impression: No focal pulmonary consolidation. Signed: Jeanine Lopes Verified Date/Time: 07/02/2020 23:20:48 B-TYPE NATRIURETIC FACTOR (BNP)2020-07-02 22:22:00 Test Item Value Reference Range Interpretation Comments B-TYPE NATRIURETIC PEPTIDE (BEAKER) 799 pg/mL 0-100 H (test code = 700) Bowling Ball Grader And Marker ID - DBBASIC METABOLIC [id number] 22:15:00 Test Item Value Reference Range Interpretation [...] S NOT APPLICABLE FOR DIALYSIS PATIEN TS. Bowling Ball Grader And Marker ID - [id number] 22:12:00 Test Item Value Reference Range Interpretation Comments FIBRINOGEN LEVEL (BEAKER) (test 286 mg/dl 225-434 code = 658) [id number] 22:12:00 Test Item Value Reference Range Interpretation Comments PARTIAL THROMBOPLASTIN TIME 32.6 seconds 22.5-36.0 (BEAKER) (test code = 760) PROTHROMBIN [id number] 22:11:00 Test Item Value Reference Range Interpretation Comments PROTIME (BEAKER) 14.8 seconds 11.9-14.2 H (test code = 759) INR (BEAKER) (test 1.20 See_Comment [Automat ed message] code = 370) The system Runteq generated this result transmitted ref erence range: <=5.90. The reference range was not used to int erpret this result as normal/abnormal . Effective 09/30/2018: PT Reference Range ChangeNew: 11.9-14.2 Previous: 11.7- 14.7RECOMMENDED COUMADIN/WARFARIN INR THERAPY RANGESSTANDARD DOSE: 2.0-3.0 Includes: PROPHYLAXIS for venous thrombosis, systemic embolization; TREATMENT for venous thrombosis and/or pulmonary embolus.HIGH RISK: Target INR is 2.5-3.5 for patients wiht mechanical heart valves.CBC W/PLT COUNT & AUTO [id number] 22:03:00 Test Item Value Reference Range Interpretation [...] PERCENT (BEAKER) (test code = 2801) TROPONIN [id number] 21:54:00 Test Item Value Reference Range Interpretation [...] failure, acidosis, acute neurological disease, and persistent tachyarrhythmia.Bowling Ball Grader And Marker ID - DBCOMPREHENSIVE METABOLIC [id number] 21:48:00 Test Item Value Reference Range Interpretation [...] S NOT APPLICABLE FOR DIALYSIS PATIEN TS. Bowling Ball Grader And Marker ID - [id number] 21:48:00 Test Item Value Reference Range Interpretation Comments MAGNESIUM (BEAKER) (test code = 2.1 mg/dL 1.6-2.6 627) Bowling Ball Grader And Marker ID - [id number] 21:48:00 Test Item Value Reference Range Interpretation Comments PHOSPHORUS (BEAKER) (test code = 2.7 mg/dL 2.3-4.7 604) Bowling Ball Grader And Marker ID - DBCBC W/PLT COUNT & AUTO [id number] 21:32:00 Test Item Value Reference Range Interpretation [...] 0-1 H PERCENT (BEAKER) (test code = 9657)
[2022-07-08] MEDS ORDERED: NA CHLORIDE 0.9% 1,000 ML ONE (10:10)
[2022-07-08 10:16] LABS: Absolute Lymphocytes (CBC) 2.6 K/uL (0.7-4.9); Hematocrit 23.9 % (39.6-49.0); Lymphocytes % 17.2 % (15.3-44.8); MCV 87.3 fL (80-100); MPV 8.5 fL (7.6-11.3); RBC Red Blood Cell Count 2.74 M/uL (4.33-5.43)
[2022-07-08 10:35] LABS: Urine Blood Trace-intact (Negative); Urine Glucose Negative (Negative); Urine Protein 3+ (Negative); Urine Specific Gravity >=1.030 (1.005-1.030)
[2022-07-08 10:42] LABS: Magnesium 1.9 mg/dL (1.6-2.4); Potassium 3.7 mmol/L (3.5-5.1)
[2022-07-08 10:49] LABS: Bilirubin Total 0.8 mg/dL (0.2-1.0); Protein, Total 6.9 g/dL (6.4-8.2); Troponin High Sensitivity 15.5 pg/mL (<58.9)
--- NOTE | 2022-07-08 11:46 | RAD REPORT ---
EX[facility] DESCRIPTION[facility]08/2022 10:16 am CLINICAL HISTORY: weakness COMPARISON: Chest Single View dated 11/11/2020; Chest Single View dated 07/02/2020; Chest Single View dated 05/13/2019; Chest Single View dated 02/13/2018 TECHNIQUE: Portable AP view of the chest. FINDINGS: Hazy right basal airspace opacification. The appearance is improved since the prior exam o f 2020. No pneumothorax or effusion. The cardiomediastinal contours are unremarkable. IMPRESSION: Hazy right basal airspace opacification, although improved since 2020. Appearance may re late to recurrent pneumonia or persistent atelectasis/scarring.
[2022-07-08 12:44] LABS: Blood Morphology Comment NOTED (NOT SEEN); Platelet Estimate ADEQ; Platelets, Giant PRESENT
[2022-07-08 12:45] LABS: Anisocytosis 1+; Basophilic Stippling 1+; Polychromasia 1+
[2022-07-08 12:48] LABS: Hypochromasia 1+
[2022-07-08 13:10] LABS: Urine Bacteria None Seen /HPF (<20); Urine Mucus 1+ /HPF (None Seen)
--- NOTE | 2022-07-08 13:49 | ER ---
Nurse's Notes [facility] Name: Farhat Burch Sr Age: 77 yrs Sex: Male : 1945 Arrival Date: 07/08/2022 Time: 09:35 Bed 7 Private MD: Diagnosis: Acute kidney failure, unspecified;Dehydration;UTI/ Urinary tract infection, site not specified Presentation: 07/08 09:39 Chief complaint: EMS states: Pt from home, reports generalized weakness, dizziness and ph lack of appetite for approx 3-4 days has been drinking fluids "but only coke", also reports chills and a mild cough, chest pain "a few days ago", VSS, BGL 131, hx of DM. Coronavirus screen: Vaccine status: Patient reports receiving the 2nd dose of the covid vaccine. Ebola Screen: No symptoms or risks identified at this time. Initial Sepsis Screen: Does the patient meet any 2 criteria? No. Patient's initial sepsis screen is negative. Does the patient have a suspected source of infection? No. Patient's initial sepsis screen is negative. Risk Assessment: Do you want to hurt yourself or someone else? Patient reports no desire to harm self or others. Onset of symptoms was July 08, 2022. 09:39 Method Of Arrival: EMS: [facility] 09:39 Acuity: JESSE 3 ph Triage Assessment: 09:44 General: Appears in no apparent distress. comfortable, slender, Behavior is calm, ph cooperative, appropriate for age, Reports chills for fatigue for >3 days. Pain: Denies pain. Neuro: Level of Consciousness is awake, alert, obeys commands, Oriented to person, place, time, situation, Reports dizziness, weakness "generalized" Denies blurred vision headache. Cardiovascular: Capillary refill < 3 seconds in bilateral fingers Patient's skin is warm and dry. Respiratory: Reports cough that is Airway is patent Respiratory effort is even, unlabored, Respiratory pattern is regular, symmetrical, Denies shortness of breath. GI: Reports decreased appetite Patient currently denies abdominal pain, diarrhea, nausea, vomiting. : No signs and/or symptoms were reported regarding the genitourinary system. Derm: Skin with poor turgor Skin is pink, warm \\T\\ dry. Musculoskeletal: Circulation, motion, and sensation intact. Range of motion: intact in all extremities. Historical: - Allergies: 09:43 No Known Drug Allergies; ph - PMHx: 09:43 Anemia; Anxiety; neely esophagus; COPD; Depression; Diabetes - IDDM; Hyperlipidemia; ph Hypertension; resolved; - Immunization history:: Adult Immunizations unknown. - Social history:: Smoking status: Patient reports the use of cigarette tobacco products, smokes one pack cigarettes per day. Patient/guardian denies using alcohol, the patient reports quitting approximately 14 years ago. - Family history:: not pertinent. Screenin:49 [facility] ED Fall Risk Assessment (Adult) History of falling in the last 3 months, ph including since admission No falls in past 3 months (0 pts) Confusion or Disorientation No (0 pts) Intoxicated or Sedated No (0 pts) Impaired Gait No (0 pts) Mobility Assist Device Used Yes (1 pt) Altered Elimination No (0 pt) Score/Fall Risk Level 0 - 2 = Low Risk Oriented to surroundings, Maintained a safe environment, Hourly rounding (assess needs \\T\\ fall precautionary measures) done. Abuse screen: Denies threats or abuse. Denies injuries from another. Nutritional screening: No deficits noted. Tuberculosis screening: No symptoms or risk factors identified. Assessment: 10:00 General: NO CHANGES FROM TRIAGE ASSESSMENT. 10:44 Reassessment: Pt states that he feels like he could eat, spoke w/ ERP and ordered heart healthy diet for lunch, pt resting comfortably at this time, denies pain, VSS. 12:00 Reassessment: Patient appears in no apparent distress at this time. No changes from previously documented assessment. Patient is alert, oriented x 3, equal unlabored respirations, skin warm/dry/pink. 13:00 Reassessment: Patient appears in no apparent distress at this time. Patient and/or ph family updated on plan of care and expected duration. Pain level reassessed. Patient is alert, oriented x 3, equal unlabored respirations, skin warm/dry/pink. 15:00 Reassessment: Patient appears in no apparent distress at this time. Patient and/or ph family updated on plan of care and expected duration. Pain level reassessed. Patient is alert, oriented x 3, equal unlabored respirations, skin warm/dry/pink. 17:00 Reassessment: Patient appears in no apparent distress at this time. Patient and/or ph family updated on plan of care and expected duration. Pain level reassessed. Patient is alert, oriented x 3, equal unlabored respirations, skin warm/dry/pink. 19:15 General: Appears in no apparent distress. comfortable, slender, well developed, pf1 Behavior is calm, cooperative, appropriate for age, quiet. 19:15 Pain: Complains of pain in head Pain currently is 4 out of 10 on a pain scale. Neuro: pf1 Level of Consciousness is awake, alert, obeys commands, Oriented to person, place, time, situation, Reports headache weakness generalized weakness. Cardiovascular: No deficits noted. Capillary refill < 3 seconds Patient's skin is warm and dry. Respiratory: No deficits noted. Airway is patent Trachea midline Respiratory effort is even, unlabored, Respiratory pattern is regular, symmetrical. GI: No deficits noted. Abdomen is flat, non-distended, Bowel sounds present X 4 quads. : No deficits noted. No signs and/or symptoms were reported regarding the genitourinary system. EENT: No deficits noted. No signs and/or symptoms were reported regarding the EENT system. Derm: No deficits noted. No signs and/or symptoms reported regarding the dermatologic system. Musculoskeletal: Reports weakness in generalized. 22:51 Reassessment: Patient appears in no apparent distress at this time. No changes from pf1 previously documented assessment. Patient and/or family updated on plan of care and expected duration. Pain level reassessed. Patient states feeling better. Patient states symptoms have improved. Vital Signs: 09:39 BP 125 / 76; Pulse 81; Resp 18; Temp 97.2; Pulse Ox 94% on R/A; Weight 68.04 kg; Height ph 6 ft. 0 in. (182.88 cm); Pain 0/10; 10:44 BP 143 / 78; Pulse 78; Resp 18; Pulse Ox 98% on R/A; ph 12:00 BP 120 / 65; Pulse 82; Resp 18; Pulse Ox 97% on R/A; ph 13:15 BP 131 / 71; Pulse 93; Resp 18; Pulse Ox 100% on R/A; ph 15:00 BP 127 / 86; Pulse 81; Resp 18; Pulse Ox 98% on R/A; ph 17:00 BP 132 / 72; Pulse 79; Resp 16; Pulse Ox 98% on R/A; ph 19:20 BP 123 / 71; Pulse 73; Resp 21; Temp 98.2; Pulse Ox 99% on R/A; Pain 4/10; pf1 09:39 Body Mass Index 20.34 (68.04 kg, 182.88 cm) ph Vitals: 10:44 Cardiac Rhythm Assessment Sinus rhythm. ph ED Course: 09:35 Patient arrived in ED. rg4 09:37 Lisbeth Valero RN is Primary Nurse. ph 09:37 Anthony Haile MD is Attending Physician. rt 09:43 Triage completed. ph 09:44 Arm band placed on Patient placed in an exam room, on a stretcher, on potline monitor, ph on pulse oximetry. 10:08 Magnesium Sent. ph 10:08 CMP Sent. ph 10:08 CBC with Diff Sent. ph 10:08 CPK Sent. ph 10:47 Patient has correct armband on for positive identification. Placed in gown. Bed in low ph position. Call light in reach. Side rails up X2. Client placed on continuous cardiac and pulse oximetry monitoring. NIBP monitoring applied. Door closed. Noise minimized. Warm blanket given. Pillow given. 13:48 Phuc García MD is Hospitalizing Provider. rt 22:48 No provider procedures requiring assistance completed. pf1 22:53 Patient admitted, IV remains in place. pf1 Administered Medications: 10:40 Drug: NS 0.9% 1000 ml Route: IV; Rate: 1000 ml; Site: left antecubital; ph 13:00 Follow up: Response: No adverse reaction; IV Status: Completed infusion; IV Intake: ph 1000ml 15:00 Drug: Rocephin - (cefTRIAXone) 2 grams Route: IVPB; Infused Over: 30 mins; Site: left ph antecubital; 15:30 Follow up: Response: No adverse reaction; IV Status: Completed infusion ph 21:50 Drug: traZODONE 50 mg Route: PO; pf1 22:50 Follow up: Response: No adverse reaction; Marked relief of symptoms pf1 Medication: 10:47 VIS not applicable for this client. ph Intake: 13:00 IV: 1000ml; Total: 1000ml. ph Outcome: 13:48 Decision to Hospitalize by Provider. rt 22:52 Admitted to Med/surg accompanied by tech, via wheelchair, room 220, with chart, Report pf1 called to NAYANA Mora 22:53 Condition: stable pf1 22:53 Instructed on the need for admit, Demonstrated understanding of instructions. 23:09 Patient left the ED. pf1 Signatures: Lisbeth Valero RN RN perry Ramirez, Ju rg4 Anthony Haile MD MD rt Lindsay saini RN RN pf1
--- NOTE | 2022-07-08 13:49 | EDPHYS ---
Physician Documentation [facility] Name: Farhat Burch Sr Age: 77 yrs Sex: Male : 1945 Arrival Date: 07/08/2022 Time: 09:35 Bed 7 Private MD: ED Physician Anthony Haile HPI: 07/08 10:26 This 77 yrs old Male presents to ER via EMS with complaints of Dizziness, General rt Weakness. 10:26 Patient presents to the ED with a generalized weakness, dizziness described as rt lightheadedness. Patient states that he had poor p.o. intake for the past 4 days. States that he is only been drinking Coke, has not been eating solids. He denies pain, other acute complaints at this time. Patient states that he does not have an appetite. Denies other acute complaints at this time, patient reportedly had chest pain a few days ago but none currently. Symptoms are moderate in severity, no other aggravating or alleviating factors.. Historical: - Allergies: 09:43 No Known Drug Allergies; ph - PMHx: 09:43 Anemia; Anxiety; neely esophagus; COPD; Depression; Diabetes - IDDM; Hyperlipidemia; ph Hypertension; resolved; - Immunization history:: Adult Immunizations unknown. - Social history:: Smoking status: Patient reports the use of cigarette tobacco products, smokes one pack cigarettes per day. Patient/guardian denies using alcohol, the patient reports quitting approximately 14 years ago. - Family history:: not pertinent. ROS: 10:26 Constitutional: Negative for fever, chills, and weight loss, Cardiovascular: Negative rt for chest pain, palpitations, and edema, Respiratory: Negative for shortness of breath, cough, wheezing, and pleuritic chest pain, Abdomen/GI: Negative for abdominal pain, nausea, vomiting, diarrhea, and constipation, MS/Extremity: Negative for injury and deformity, Skin: Negative for injury, rash, and discoloration, Neuro: Negative for headache, weakness, numbness, tingling, and seizure, Psych: Negative for depression, anxiety, suicide ideation, homicidal ideation, and hallucinations. 10:26 Neuro: Positive for weakness, Negative for altered mental status. Exam: 10:26 Head/Face: Normocephalic, atraumatic. Neck: Trachea midline, no thyromegaly or masses rt palpated, and no cervical lymphadenopathy. Supple, full range of motion without nuchal rigidity, or vertebral point tenderness. No Meningismus. Chest/axilla: Normal chest wall appearance and motion. Nontender with no deformity. No lesions are appreciated. Cardiovascular: Regular rate and rhythm with a normal S1 and S2. No gallops, murmurs, or rubs. Normal PMI, no JVD. No pulse deficits. Respiratory: Lungs have equal breath sounds bilaterally, clear to auscultation and percussion. No rales, rhonchi or wheezes noted. No increased work of breathing, no retractions or nasal flaring. Abdomen/GI: Soft, non-tender, with normal bowel sounds. No distension or tympany. No guarding or rebound. No evidence of tenderness throughout. Skin: Warm, dry with normal turgor. Normal color with no rashes, no lesions, and no evidence of cellulitis. MS/ Extremity: Pulses equal, no cyanosis. Neurovascular intact. Full, normal range of motion. Neuro: Awake and alert, GCS 15, oriented to person, place, time, and situation. Cranial nerves II-XII grossly intact. Motor strength 5/5 in all extremities. Sensory grossly intact. Cerebellar exam normal. Normal gait. Psych: Awake, alert, with orientation to person, place and time. Behavior, mood, and affect are within normal limits. 10:26 Constitutional: The patient appears Thin, chronically ill-appearing 10:26 ENT: Dry mucous membrane. 10:26 ECG was reviewed by the Attending Physician. Vital Signs: 09:39 BP 125 / 76; Pulse 81; Resp 18; Temp 97.2; Pulse Ox 94% on R/A; Weight 68.04 kg; Height ph 6 ft. 0 in. (182.88 cm); Pain 0/10; 10:44 BP 143 / 78; Pulse 78; Resp 18; Pulse Ox 98% on R/A; ph 12:00 BP 120 / 65; Pulse 82; Resp 18; Pulse Ox 97% on R/A; ph 13:15 BP 131 / 71; Pulse 93; Resp 18; Pulse Ox 100% on R/A; ph 15:00 BP 127 / 86; Pulse 81; Resp 18; Pulse Ox 98% on R/A; ph 17:00 BP 132 / 72; Pulse 79; Resp 16; Pulse Ox 98% on R/A; ph 19:20 BP 123 / 71; Pulse 73; Resp 21; Temp 98.2; Pulse Ox 99% on R/A; Pain 4/10; pf1 09:39 Body Mass Index 20.34 (68.04 kg, 182.88 cm) ph MDM: 09:37 Patient medically screened. rt 13:48 Differential diagnosis: Dehydration, acute kidney injury, pneumonia, UTI. Data rt reviewed: vital signs, nurses notes, lab test result(s), EKG, radiologic studies. Consideration of Admission/Observation Patient was admitted/placed on observation. Management of patient was discussed with the following: Hospitalist: Agrees to admit. I considered the following discharge prescriptions or medication management in the emergency department Medications were administered in the Emergency Department. See MAR. Test considered but Not performed: CT: No focal neurologic deficits, abdominal pain, CT scan not indicated.. External Records Reviewed: Outpatient labs: Creatinine has doubled compared to previous lab. Care significantly affected by the following chronic conditions: Chronic Obstructive Pulmonary Disease. Counseling: I had a detailed discussion with the patient and/or guardian regarding: the historical points, exam findings, and any diagnostic results supporting the discharge/admit diagnosis, lab results, radiology results, the need for further work-up and treatment in the hospital. Response to treatment: the patient's symptoms have markedly improved after treatment. 07/08 09:38 Order name: CBC with Diff rt 07/08 09:38 Order name: CMP rt 07/08 09:38 Order name: Magnesium rt 07/08 09:38 Order name: Troponin High Sensitivity rt 07/08 09:38 Order name: EKG; Complete Time: 09:39 rt 07/08 09:38 Order name: EKG - Nurse/Tech; Complete Time: 10:40 rt 07/08 09:38 Order name: Urine Dipstick-Ancillary (obtain specimen); Complete Time: 10:40 rt 07/08 09:38 Order name: Chest Single View XRAY rt 07/08 09:38 Order name: CPK rt 07/08 10:17 Order name: CBC with Automated Diff EDMS 07/08 10:35 Order name: Urine Dipstick-Ancillary; Complete Time: 10:46 EDMS 07/08 10:40 Order name: Diet Heart Healthy; Complete Time: 10:41 ph 07/08 10:42 Order name: Comprehensive Metabolic Panel; Complete Time: 11:21 EDMS 07/08 10:42 Order name: Magnesium; Complete Time: 11:21 EDMS 07/08 10:50 Order name: Creatine Phosphokinase; Complete Time: 11:21 EDMS 07/08 10:50 Order name: Troponin High Sensitivity; Complete Time: 11:21 EDMS 07/08 11:22 Order name: Urine Microscopic Only rt 07/08 11:46 Order name: RAD; Complete Time: 11:52 EDMS 07/08 12:45 Order name: Manual Differential EDMS 07/08 13:10 Order name: Urine Microscopic Only; Complete Time: 13:19 EDMS 07/08 13:23 Order name: SARS RAPID ph 07/08 15:52 Order name: CT EDMS 07/08 16:15 Order name: SARS-COV-2 Antigen Rapid EDMS 07/08 20:47 Order name: Phosphorus EDMS 07/08 20:47 Order name: T4 Free EDMS 07/08 20:47 Order name: Magnesium EDMS 07/08 20:47 Order name: Thyroid Stimulating Hormone EDMS EC:26 Rate is 74 beats/min. Rhythm is regular, Normal Sinus Rhythm with Left bundle branch rt block. Left axis deviation noted. VA interval is normal. QT interval is normal. No Q waves. Interpreted by me. Administered Medications: 10:40 Drug: NS 0.9% 1000 ml Route: IV; Rate: 1000 ml; Site: left antecubital; ph 13:00 Follow up: Response: No adverse reaction; IV Status: Completed infusion; IV Intake: ph 1000ml 15:00 Drug: Rocephin - (cefTRIAXone) 2 grams Route: IVPB; Infused Over: 30 mins; Site: left ph antecubital; 15:30 Follow up: Response: No adverse reaction; IV Status: Completed infusion ph 21:50 Drug: traZODONE 50 mg Route: PO; pf1 22:50 Follow up: Response: No adverse reaction; Marked relief of symptoms pf1 Disposition Summary: 07/08/22 13:48 Hospitalization Ordered Hospitalization Status: Inpatient Admission rt Provider: Phuc García rt Location: Telemetry/MedSurg (Inpatient) rt Condition: Stable rt Problem: new rt Symptoms: have improved rt Bed/Room Type: Standard rt Room Assignment: 220(07/08/22 21:47) cg Diagnosis - Acute kidney failure, unspecified rt - Dehydration rt - UTI/ Urinary tract infection, site not specified rt Forms: - Medication Reconciliation Form rt - SBAR form rt Signatures: Dispatcher [employer] Lisbeth Costa, NAYANA RN Simran Ramirez RN RN cg Honey Montanez PA-C PA-C sb4 Anthony Haile MD MD rt Lindsay saini RN RN pf1 Corrections: (The following items were deleted from the chart) 21:47 13:48 rt cg
[2022-07-08] MEDS ORDERED: NA CHLORIDE 0.9% 50 ML ONE (14:36)
[2022-07-08] MEDS ORDERED: CEFTRIAXONE 1000 MG/VIAL ONE ×2 (14:36→15:43)
[2022-07-08] MEDS ORDERED: ONDANSETRON 4 MG/2 ML VIAL IV PRN (14:45)
[2022-07-08] MEDS ORDERED: ENOXAPARIN 30 MG/0.3 ML SQ SCH (15:00)
[2022-07-08] MEDS ORDERED: NA CHLORIDE 0.9% 1,000 ML IV SCH (15:00)
--- NOTE | 2022-07-08 15:03 | P.HP ---
Certification for Inpatient Patient admitted to: Inpatient With expected LOS: >2 Midnights Patient will require the following post-hospital care: None Practitioner: I am a practitioner with admitting privileges, knowledge of patient current condition, hospital course, and medical plan of care. Services: Services provided to patient in accordance with Admission requirements found in Title 42 Section 412.3 of the Code of Federal Regulations Patient History Date of Service: 07/08/22 Reason for admission: Generalized weakness and malaise History of Present Illness: Patient is a 77-year-old male with a past medical history significant for anxiety disorder, depression, COPD, DM2, HLD, hypertension who presents with complaint of generalized weakness and malaise that was ongoing for the past 4 days. Patient reported that he has not been able to eat or drink due to poor appetite. Patient reported associated signs and symptoms of chills, dysuria, cough and dizziness. Patient denies any other signs and symptoms. Symptoms are aggravated or relieved by nothing. Patient decided to present to the hospital for medical evaluation. Allergies No Known Drug Allergies Allergy (Unverified 08/03/14 12:13) Unknown No Known Allergies Allergy (Uncoded 12/11/15 15:55) Unknown Home Medications: Albuterol Inhaler [Ventolin Inhaler*] 90 mcg IN Q6H PRN 07/12/14 Aspirin [Aspirin EC 81 MG] 81 mg PO DAILY 07/12/14 Buspirone HCl [Buspar] 10 mg PO TID 07/12/14 Cyanocobalamin [Vitamin B-12*] 1,000 mcg PO DAILY 07/12/14 Duloxetine HCl 60 mg PO DAILY 07/12/14 Finasteride [Proscar*] 5 mg PO DAILY 07/12/14 Flunisolide [Nasarel] 25 mcg BID 07/12/14 Gabapentin [Neurontin*] 300 mg PO BID 07/12/14 Glipizide [Glipizide ER] 10 mg PO BID 07/12/14 Hydroxyzine Pamoate 25 mg PO TID 07/12/14 Isosorbide Mononitrate [Ismo] 20 mg PO DAILY 07/12/14 Lisinopril [Zestril] 2.5 mg PO DAILY 07/12/14 Loratadine [Claritin*] 10 mg PO DAILY 07/12/14 Metoprolol Succinate [Toprol Xl*] 50 mg PO DAILY 07/12/14 Omeprazole [Prilosec] 20 mg PO BID 07/12/14 Tamsulosin [Flomax*] 0.4 mg PO BEDTIME 07/12/14 Trazodone [Desyrel*] 50 mg PO BEDTIME 07/12/14 oxyBUTYnin chloride [Ditropan*] 5 mg PO BID 07/12/14 Amoxicillin 500 mg PO TID #21 tablet 07/14/14 Fluticasone/Salmeterol [Advair 250/50 Diskus*] 1 puff IH BID #1 disk 07/14/14 Sitagliptin Phosphate [Januvia] 50 mg PO DAILY #30 tablet 07/14/14 Tiotropium [Spiriva Handihaler*] 1 sprays IH DAILY #30 inh 07/14/14 - Past Medical/Surgical History Diabetic: Yes -: Anxiety disorder -: Depression -: Hypertension -: COPD -: DM2 -: HLD -: knee surgery - Family History Father -: Heart disease, Diabetes Mother -: Heart disease - Social History Smoking Status: Current every day smoker Counseled patient to stop smoking for: less than 10 minutes Smoking therapy provided: Yes Patient receptive to therapy: Yes Alcohol use: No CD- Drugs: No Caffeine use: Yes Place of Residence: Home Review of Systems General: Chills, Weakness, Malaise Eyes: Unremarkable ENT: Unremarkable Respiratory: Cough Cardiovascular: Unremarkable Gastrointestinal: Unremarkable Genitourinary: Dysuria Musculoskeletal: Unremarkable Integumentary: Unremarkable Neurological: Other (Dizziness ) Lymphatics: Unremarkable Physical Examination - Physical Exam General: Alert, In no apparent distress, Oriented x3, Cooperative HEENT: Atraumatic, PERRLA, Mucous membr. moist/pink, EOMI, Sclerae nonicteric Neck: Supple, 2+ carotid pulse no bruit, No LAD, Without JVD or thyroid abnormality Respiratory: Diminished Cardiovascular: No edema, Regular rate/rhythm, Normal S1 S2 Capillary refill: <2 Seconds Gastrointestinal: Normal bowel sounds, Soft and benign, No tenderness Musculoskeletal: No clubbing, No swelling, No tenderness Integumentary: No rashes, No tenderness/swelling Neurological: Normal speech, Normal tone, Normal affect Lymphatics: No axilla or inguinal lymphadenopathy - Studies Laboratory Data (last 24 hrs) 07/08/22 10:00: Sodium 141, Potassium 3.7, BUN 28 H, Creatinine 2.08 H, Glucose 124 H, Magnesium 1.9, Total Bilirubin 0.8, AST 21, ALT 14 L, Alkaline Phosphatase 85 07/08/22 10:00: WBC 15.30 H, Hgb 7.4 L, Hct 23.9 L, Plt Count 272 Assessment and Plan - Plan --UTI POA. Patient placed on antibiotics. Urine cultures pending. --Suspected pneumonia. Noted on chest x-ray. Blood cultures pending. Patient placed on antibiotics and albuterol as needed. CT chest for further evaluation. --LIANNA. Likely prerenal. Secondary to dehydration. Patient given IV hydration in the ER. Continue IV hydration. We will continue to monitor renal functions. --COPD. Stable. Continue home medications. --Anxiety disorder\depression. Continue home medications. --DM2 with neuropathy. BS monitoring with sliding scale insulin. Continue gabapentin for his neuropathy. --BPH. Continue home medications. -- GERD. Continue Protonix. --OAB. Continue oxybutynin. --Nicotine dependence. Patient counseled on tobacco cessation and placed on nicotine patch. --Hypertension. Poorly controlled. Continue home medications and hydralazine as needed. -- Allergic rhinitis. Continue home medications. --DVT prophylaxis with Lovenox subQ. Discharge Plan: Home - Advance Directives Does patient have a Living Will: No Does patient have a Durable POA for Healthcare: No - Code Status/Comfort Care Code Status Assessed: Yes Physician Review: Patient Assessed, Agree with Above Assessment and Plan Critical Care: No
[2022-07-08] MEDS ORDERED: HYDRALAZINE HCL 20 MG/ML VIAL IV PRN (15:17)
--- NOTE | 2022-07-08 15:52 | RAD REPORT ---
EXAM DESCRIPTION: CT - Thorax Wo Con - 07/08/2022 3:11 pm CLINICAL HISTORY: sob COMPARISON: [address] abdomen TECHNIQUE: Computed axial tomography of the chest was obtained. Contrast was not requested. All CT scans are performed using dose optimization technique as appropriate and may include automated exposure control or mA/KV adjustment according to patient size. FINDINGS: The evaluation of mediastinum, lenny and vessels is limited secondary to lack of IV contras t administration. Mild chronic appearing interstitial lung opacities are present. Mild to moderate right lower lobe opacities. These were mostly present on the 2020 CT abdomen Mild ground-glass opacity left upper lobe. Mild to moderate patchy right lower lobe opacities probabl y are combination of atelectasis and scarring. Multiple enlarged mediastinal and hilar lymph nodes. The lymph nodes measure up to 2 centimeter short axis. Some were present on the prior exam. Some have developed. Small calcified hilar mediastinal ly mph nodes. Minimal right pleural effusion. No pericardial effusion. Coronary arterial calcifications. The wall of the mid and proximal esophagus appears thickened. IMPRESSION: Mild to moderate patchy right lower lobe opacities probably are combination of atelectas is scarring Esophageal wall thickening. Direct visualization recommended Mediastinal and hilar lymphadenopathy. Some of the lymphadenopathy was present on the prior exam. Ant e of the lymph nodes have developed. These all may be inflammatory in neoplasm. Another consideration is that this represents a combination of inflammatory and neoplastic lymph nodes. PET-CT recommended
[2022-07-08] MEDS ORDERED: ACETAMINOPHEN 325 MG TABLET ONE (16:02)
[2022-07-08 16:15] LABS: SARS-CoV-2 Antigen Rapid Res Negative (Negative)
[2022-07-08 20:47] LABS: Magnesium 1.7 mg/dL (1.6-2.4); Phosphorus 3.4 mg/dL (2.5-4.9); Thyroid Stimulating Hormone 1.33 uIU/mL (0.358-3.740)
[2022-07-08] MEDS: INSULIN -REGULAR HUMAN 50 UNIT/0.5 ML ML SQ SCH (21:00)
[2022-07-08] MEDS ORDERED: TRAZODONE 50 MG TABLET ONE (21:57)
[2022-07-08 23:18] VITALS: BMI 18.8
[2022-07-08] MEDS: AZITHROMYCIN IV 500 MG in NA CHLORIDE 0.9% 250 ML IVPB SCH (23:40)
[2022-07-09 03:34] LABS: Absolute Lymphocytes (CBC) 2.3 K/uL (0.7-4.9); Hematocrit 22.2 % (39.6-49.0); Lymphocytes % 13.9 % (15.3-44.8); MCV 87.9 fL (80-100); MPV 8.7 fL (7.6-11.3); RBC Red Blood Cell Count 2.53 M/uL (4.33-5.43)
[2022-07-09 03:51] LABS: Potassium 3.5 mmol/L (3.5-5.1)
[2022-07-09] MEDS ORDERED: SODIUM CHLORIDE 0.9% 10ML INJ IV PRN (03:55)
[2022-07-09] MEDS ORDERED: NA CHLORIDE 0.9% 250 ML IV SCH (04:00)
[2022-07-09] MEDS: PANTOPRAZOLE 40 MG INJ IVP SCH ×3 (04:31→22:01)
[2022-07-09] MEDS: Ringers Lactate 1,000 ML IV SCH ×2 (04:32→13:00)
[2022-07-09] MEDS ORDERED: Ringers Lactate 1,000 ML IV SCH (05:00)
[2022-07-09 06:45] LABS: Magnesium 1.7 mg/dL (1.6-2.4)
[2022-07-09] MEDS: INSULIN -REGULAR HUMAN 50 UNIT/0.5 ML ML SQ SCH ×4 (07:30→22:45)
[2022-07-09] MEDS ORDERED: PANTOPRAZOLE 40MG TABLET PO SCH (07:30)
[2022-07-09] MEDS ORDERED: NA CHLORIDE 0.9% 0 ML ONE (08:18)
[2022-07-09] MEDS: CEFTRIAXONE 1,000 MG in NA CHLORIDE 0.9% 50 ML IVPB SCH (08:31)
[2022-07-09] MEDS ORDERED: MAGNESIUM SULFATE 1 gm IVPB 1 GM/100 ML BAG IV ONE (09:00)
[2022-07-09] MEDS: ASPIRIN 81 MG CHEWABLE TABLET PO SCH (09:00)
[2022-07-09] MEDS ORDERED: KCL 20 MEQ/100 mL IVPB 20 MEQ/100 ML BAG IV SCH (09:00)
[2022-07-09] MEDS ORDERED: NA CHLORIDE 0.9% 250 ML ONE ×2 (10:17→15:13)
--- NOTE | 2022-07-09 14:19 | P.CNS ---
Date of Consult: 07/09/22 Reason for Consult: LIANNA Requesting Physician: Phuc García Primary Care Provider: [place] Chief Complaint: Generalized weakness and malaise History of Present Illness: Patient is a 77-year-old male with a past medical history significant for anxiety disorder, depression, COPD, DM2, HLD, hypertension who presents with complaint of generalized weakness and malaise that was ongoing for the past 4 days. Patient reported that he has not been able to eat or drink due to poor appetite. Patient reported associated signs and symptoms of chills, dysuria, cough and dizziness. Patient denies any other signs and symptoms. Symptoms are aggravated or relieved by nothing. Patient decided to present to the hospital for medical evaluation. 10:26 This 77 yrs old Male presents to ER via EMS with complaints of Dizziness, General rt Weakness. 10:26 Patient presents to the ED with a generalized weakness, dizziness described as rt lightheadedness. Patient states that he had poor p.o. intake for the past 4 days. States that he is only been drinking Coke, has not been eating solids. He denies pain, other acute complaints at this time. Patient states that he does not have an appetite. Denies other acute complaints at this time, patient reportedly had chest pain a few days ago but none currently. Symptoms are moderate in severity, no other aggravating or alleviating factors. No NSAIDs. He reports hesitancy with urination and nocturia 2-3. Allergies No Known Drug Allergies Allergy (Verified 07/08/22 23:57) Unknown Home medications list reviewed: Yes Home Medications: Albuterol Inhaler [Ventolin Inhaler*] 90 mcg IN Q6H PRN 07/12/14 Aspirin [Aspirin EC 81 MG] 81 mg PO DAILY 07/12/14 Buspirone HCl [Buspar] 10 mg PO TID 07/12/14 Cyanocobalamin [Vitamin B-12*] 1,000 mcg PO DAILY 07/12/14 Duloxetine HCl 60 mg PO DAILY 07/12/14 Finasteride [Proscar*] 5 mg PO DAILY 07/12/14 Flunisolide [Nasarel] 25 mcg BID 07/12/14 Gabapentin [Neurontin*] 300 mg PO BID 07/12/14 Glipizide [Glipizide ER] 10 mg PO BID 07/12/14 Hydroxyzine Pamoate 25 mg PO TID 07/12/14 Isosorbide Mononitrate [Ismo] 20 mg PO DAILY 07/12/14 Lisinopril [Zestril] 2.5 mg PO DAILY 07/12/14 Loratadine [Claritin*] 10 mg PO DAILY 07/12/14 Metoprolol Succinate [Toprol Xl*] 50 mg PO DAILY 07/12/14 Omeprazole [Prilosec] 20 mg PO BID 07/12/14 Tamsulosin [Flomax*] 0.4 mg PO BEDTIME 07/12/14 Trazodone [Desyrel*] 50 mg PO BEDTIME 07/12/14 oxyBUTYnin chloride [Ditropan*] 5 mg PO BID 07/12/14 Amoxicillin 500 mg PO TID #21 tablet 07/14/14 Fluticasone/Salmeterol [Advair 250/50 Diskus*] 1 puff IH BID #1 disk 07/14/14 Sitagliptin Phosphate [Januvia] 50 mg PO DAILY #30 tablet 07/14/14 Tiotropium [Spiriva Handihaler*] 1 sprays IH DAILY #30 inh 07/14/14 - Past Medical/Surgical History Diabetic: Yes -: Anxiety disorder -: Depression -: Hypertension -: COPD -: DM2-IDDM -: HLD -: CKD (Dr. Brower/ Jose Raul) -: knee surgery - Family History Father Medical History: Heart disease, Diabetes Mother Medical History: Heart disease - Social History Smoking Status: Current every day smoker Alcohol use: No CD- Drugs: No Caffeine use: Yes Place of Residence: Home Review of Systems 10-point ROS is otherwise unremarkable General: Weakness, Malaise Genitourinary: Frequency Physical Examination Temp Pulse Resp BP Pulse Ox 99.0 F 72 20 121/60 98 07/09/22 12:00 07/09/22 12:00 07/09/22 12:00 07/09/22 12:00 07/09/22 12:00 General: In no apparent distress, Oriented x3, Cooperative HEENT: Atraumatic Neck: Supple Respiratory: Clear to auscultation bilaterally Cardiovascular: No edema, Regular rate/rhythm Gastrointestinal: Soft and benign, Non-distended Musculoskeletal: No clubbing, No contractures Integumentary: No rashes, No cyanosis Blood work reviewed in the chart. Imagings Data: EXAM DESCRIPTION: RADChest Single View07/08/2022 10:16 am CLINICAL HISTORY: weakness COMPARISON: Chest Single View dated 11/11/2020; Chest Single View dated 07/02/2020; Chest Single View dated 05/13/2019; Chest Single View dated 02/13/2018 TECHNIQUE: Portable AP view of the chest. FINDINGS: Hazy right basal airspace opacification. The appearance is improved since the prior exam of 2020. No pneumothorax or effusion. The cardiomediastinal contours are unremarkable. IMPRESSION: Hazy right basal airspace opacification, although improved since 2020. Appearance may relate to recurrent pneumonia or persistent atelectasis/scarring. EXAM DESCRIPTION: CT - Thorax Wo Con - 07/08/2022 3:11 pm CLINICAL HISTORY: sob COMPARISON: [address] abdomen TECHNIQUE: Computed axial tomography of the chest was obtained. Contrast was not requested. All CT scans are performed using dose optimization technique as appropriate and may include automated exposure control or mA/KV adjustment according to patient size. FINDINGS: The evaluation of mediastinum, lenny and vessels is limited secondary to lack of IV contrast administration. Mild chronic appearing interstitial lung opacities are present. Mild to moderate right lower lobe opacities. These were mostly present on the 2020 CT abdomen Mild ground-glass opacity left upper lobe. Mild to moderate patchy right lower lobe opacities probably are combination of atelectasis and scarring. Multiple enlarged mediastinal and hilar lymph nodes. The lymph nodes measure up to 2 centimeter short axis. Some were present on the prior exam. Some have developed. Small calcified hilar mediastinal lymph nodes. Minimal right pleural effusion. No pericardial effusion. Coronary arterial calcifications. The wall of the mid and proximal esophagus appears thickened. IMPRESSION: Mild to moderate patchy right lower lobe opacities probably are combination of atelectasis scarring Esophageal wall thickening. Direct visualization recommended Mediastinal and hilar lymphadenopathy. Some of the lymphadenopathy was present on the prior exam. Some of the lymph nodes have developed. These all may be inflammatory in neoplasm. Another consideration is that this represents a combination of inflammatory and neoplastic lymph nodes. PET-CT recommended Conclusions/Impression: LIANNA of unclear stage likely due to hypovolemia CKD III with proteinuria (Baseline creatinine unknown) -No NSAIDs -Change IVF 1/2NS -Renal US ordered HTN with CKD -Hydralazine prn DM II with CKD -RISS Anemia in chronic illness -Transfuse PRBC as ordered BPH with LUTS -Restart finasteride -Start tamsulosin Thank you kindly for the consultation
--- NOTE | 2022-07-09 17:35 | EKG ---
Test Date: 2022-07-08 Test Time: 10:16:19 Neighborhood Aide: PH MEASUREMENT RESULTS: Intervals: Rate: 74 TX: 162 QRSD: 164 QT: 444 QTc: 492 [employer]: P: 37 TX: 162 QRS: -43 T: 94 INTERPRETIVE STATEMENTS: Normal sinus rhythm with sinus arrhythmia Left axis deviation Left bundle branch block Abnormal ECG Compared to ECG 11/11/2020 19:52:40 Atrial fibrillation no longer present Myocardial infarct finding no longer present T-wave abnormality no longer present Possible ischemia no longer present Electronically Signed On 07-09-22 17:33:06 DIRECTOR DESIGN by Gal Jamil
[2022-07-09 20:56] LABS: Absolute Lymphocytes (CBC) 2.5 K/uL (0.7-4.9); Hematocrit 26.3 % (39.6-49.0); Lymphocytes % 18.5 % (15.3-44.8); MCV 86.6 fL (80-100); MPV 8.8 fL (7.6-11.3); RBC Red Blood Cell Count 3.03 M/uL (4.33-5.43)
[2022-07-09] MEDS: TRAZODONE 50 MG TABLET PO PRN (22:00)
[2022-07-09] MEDS: TAMSULOSIN 0.4 MG SR CAP PO SCH (22:00)
[2022-07-09] MEDS: NACHLORIDE 0.45% 1,000 ML IV SCH (22:01)
[2022-07-09] MEDS: FINASTERIDE 5 MG TAB PO SCH (22:01)
[2022-07-09] MEDS: AZITHROMYCIN IV 500 MG in NA CHLORIDE 0.9% 250 ML IVPB SCH (23:53)
[2022-07-10] MEDS: NACHLORIDE 0.45% 1,000 ML IV SCH ×2 (04:00→14:00)
[2022-07-10] MEDS: INSULIN -REGULAR HUMAN 50 UNIT/0.5 ML ML SQ SCH ×3 (06:50→18:00)
[2022-07-10 07:01] LABS: Lymphocytes % 18.1 % (15.3-44.8); MCV 87.1 fL (80-100); MPV 8.5 fL (7.6-11.3); RBC Red Blood Cell Count 2.98 M/uL (4.33-5.43)
[2022-07-10 07:10] LABS: Magnesium 2.1 mg/dL (1.6-2.4); Potassium 3.8 mmol/L (3.5-5.1); Uric Acid 11.5 mg/dL (3.5-7.2)
[2022-07-10] MEDS ORDERED: NA CHLORIDE 0.9% 1,000 ML ONE (08:21)
--- NOTE | 2022-07-10 08:27 | RAD REPORT ---
EXAM DESCRIPTION: US - Renal Ultrasound-Complete - 07/10/2022 1:07 am CLINICAL HISTORY: LIANNA vs CKD Flank pain COMPARISON: Abdomen Exam Limited dated 05/13/2019 FINDINGS: Mildly echogenic kidneys bilaterally suggests underlying medical renal disease. The right kidney measures 9.0 x 4.2 x 4.2 cm. No hydronephrosis, focal mass or perinephric fluid. The left kidney measures 9.2 x 6.3 x 4.5 cm. No hydronephrosis, focal mass or perinephric fluid. The urinary bladder is incompletely distended without gross abnormality seen. IMPRESSION: Mildly echogenic kidneys bilaterally suggesting medical renal disease.
[2022-07-10] MEDS ORDERED: EPINEPHRINE/PF 1 MG/ML AMP ONE (08:51)
[2022-07-10] MEDS ORDERED: NA CIT/CITRIC AC 30 ML ORAL UDC ONE (09:07)
[2022-07-10] MEDS ORDERED: ALBUTEROL 2.5 MG/3 ML NEB SOL ONE (09:08)
[2022-07-10] MEDS ORDERED: propofoL 200 MG/20 ML VIAL IV ONE (09:33)
[2022-07-10] MEDS ORDERED: BISACODYL E.C. 5 MG TAB PO ONE (09:50)
[2022-07-10] MEDS ORDERED: FLUCONAZOLE 100 MG TAB PO ONE (09:50)
[2022-07-10] MEDS: METOCLOPRAMIDE 10 MG/2mL INJ IV SCH ×3 (11:36→23:50)
--- NOTE | 2022-07-10 11:54 | P.PN ---
Date of Service: 07/10/22 Nephrology note (S) Pt s/p EGD, findings of exudative esophagitis noted, noted plans for CT abd w/c contrast, pt remains on IVF, no N/V (O) Vitals reviewed in the EMR General: In no apparent distress, Oriented x3, Cooperative HEENT: Atraumatic Neck: Supple Respiratory: Clear to auscultation bilaterally mostly Cardiovascular: No edema, Regular rate/rhythm Gastrointestinal: Soft, NT, mild epigastric TTP Musculoskeletal: No clubbing, No contractures Integumentary: No rashes, No cyanosis NEURO: Awake, alert, non focal Imagings Data: EXAM DESCRIPTION: CT - Thorax Wo Con - 07/08/2022 3:11 pm CLINICAL HISTORY: sob COMPARISON: [address] abdomen TECHNIQUE: Computed axial tomography of the chest was obtained. Contrast was not requested. All CT scans are performed using dose optimization technique as appropriate and may include automated exposure control or mA/KV adjustment according to patient size. FINDINGS: The evaluation of mediastinum, lenny and vessels is limited secondary to lack of IV contrast administration. Mild chronic appearing interstitial lung opacities are present. Mild to moderate right lower lobe opacities. These were mostly present on the 2020 CT abdomen Mild ground-glass opacity left upper lobe. Mild to moderate patchy right lower lobe opacities probably are combination of atelectasis and scarring. Multiple enlarged mediastinal and hilar lymph nodes. The lymph nodes measure up to 2 centimeter short axis. Some were present on the prior exam. Some have developed. Small calcified hilar mediastinal lymph nodes. Minimal right pleural effusion. No pericardial effusion. Coronary arterial calcifications. The wall of the mid and proximal esophagus appears thickened. IMPRESSION: Mild to moderate patchy right lower lobe opacities probably are combination of atelectasis scarring Esophageal wall thickening. Direct visualization recommended Mediastinal and hilar lymphadenopathy. Some of the lymphadenopathy was present on the prior exam. Some of the lymph nodes have developed. These all may be inflammatory in neoplasm. Another consideration is that this represents a combination of inflammatory and neoplastic lymph nodes. PET-CT recommended Conclusions/Impression: Stage II LIANNA, no recent labs with which to compare, prior LIANNA episode(s) a few years back. Possible underlying CKD NOS -Cr level slowly downward trending on IVF hydration, renal u/s shows preserved renal size but echogenic kidneys. Risk for VICTOR MANUEL is mild to moderate so recommend postponing CT abd w/contrast for another day while hydration is continued and to ensure continued renal recovery Abnormal findings in urine, unspecified -Some granular casts reported on automated UA, unclear if representing some mild ATN unspecified or other. F/u culture Esophagitis, unspecified -F/u biopsies taken by GI, further w/u per GI, CT scan ordered noted BPH with LUTS -Cont meds, monitor Rodriguez Blunt MD, ELVIS
[2022-07-10] MEDS: NACHLORIDE 0.45% 1,000 ML with NA BICARB 8.4% 50 MEQ IV SCH ×4 (13:16→23:57)
[2022-07-10] MEDS: CEFTRIAXONE 1,000 MG in NA CHLORIDE 0.9% 50 ML IVPB SCH (13:18)
[2022-07-10] MEDS: PANTOPRAZOLE 40 MG INJ IVP SCH ×2 (13:18→21:01)
[2022-07-10] MEDS: TAMSULOSIN 0.4 MG SR CAP PO SCH (13:21)
[2022-07-10] MEDS: ASPIRIN 81 MG CHEWABLE TABLET PO SCH (13:21)
[2022-07-10] MEDS ORDERED: GOLYTELY 4000 ML PO SCH (14:00)
--- NOTE | 2022-07-10 15:02 | CON ---
Date of Consultation: 07/10/2022 Reason For Consultation: Esophagitis with anemia. History Of Present Illness: This patient is a 77-year-old white male with history of diabetes, hyper tension, hyperlipidemia, coronary artery disease, status post VA, cardiac stent, anxiety, depression, COPD, and chronic kidney disease. The patient was admitted to the hospital due to generalized weakn ess and malaise. CT scan of chest revealed esophagitis of the proximal to mid esophagus with nearby enlarged lymph nodes of 2 cm in size. He was noted to have a hemoglobin, which has declined to 6.8, now back up to 8.0, and he says his weakness and dizziness happens to him off and on, though he has n ot passed out. He has also lost approximately 70 pounds over the past 1 to 2 months, going from 210 pounds down to 140 for unknown reasons with a loss of appetite. The patient denies any melena, hemat ochezia, hematemesis, coffee-ground emesis, diarrhea, constipation, muscle aches, joint aches, backac hes, shortness of breath, seizures, or syncope. No chronic cough. He does have decrease in weight. Past Medical History: Significant for diabetes, hypertension, hyperlipidemia, coronary artery diseas e, status post VA, cardiac stent, generalized anxiety disorder, depression, COPD, chronic kidney dise ase, and knee surgery. Medications: Include albuterol inhaler, aspirin, BuSpar, vitamin B12, duloxetine, Proscar, Nasarel, Neurontin, glipizide, hydroxyzine pamoate, isosorbide, lisinopril, Claritin, metoprolol, Prilosec, F delia, Desyrel, Ditropan, amoxicillin, Advair, Januvia, Spiriva. Allergies: NKDA. Social History: He is ; 2 kids, a son and a daughter. He smokes a pack a day for the past 6 0 years. He quit alcohol 15 years ago. Family History: Father of old age. Mother of stroke. By chart review, father had diabete s and heart disease. Review of Systems: The patient had weakness, malaise. Denies any melena, hematochezia, hematemesis, coffee-grounds emes is, hematuria, dysuria, polydipsia, chest pain, shortness of breath, seizure, syncope, lower extremit y edema, muscle aches, joint aches, backaches, diarrhea, constipation, change in bowel habits. He do es have some anxiety and depression as per his HPI. Physical Examination: Vital Signs: The patient is 6 feet, 138 pounds, BMI of 18.8 kg/m2. Temperature of 97.6 degrees Fahr enheit, pulse 72, respirations 18, blood pressure 118/61, O2 saturation 96%. General: Somewhat disheveled elderly male, lying in bed, in no acute distress. HEENT: Normocephalic, atraumatic. Anicteric. Pupils equal, round, and reactive to light. Extraocu lar movements are intact. Oropharynx is clear. Neck: Supple. No masses. Respirations: Decreased breath sounds on auscultation listening. Cardiac: Regular rate and rhythm. No gallops. Abdomen: Positive bowel sounds. Soft, nontender, nondistended. There was a 2 cm submucosal mass in the midepigastric area that he has noticed himself. He does not know why it is there. He has no butler rgical scar, suggested an implantable device. Extremities: No clubbing, cyanosis, or edema. 2+ pulses. Neuro: Alert and oriented x3. Grossly nonfocal. 5/5 motor. Sensation intact to light touch ____ Laboratory Data: The patient has a white count of 11.3, down from 13.3 yesterday. Hemoglobin of 8.0 , up from 6.8 yesterday. Platelets of 242, polys of 68%, lymphocytes 18%, monocytes 13%, eosinophils 0.3%. The patient has a sodium of 143, potassium 3.8, chloride 114, bicarb 23, BUN of 26, creatinin e of 1.92, glucose 78, uric acid 11.5, calcium of 7.9, magnesium of 2.1, iron of 59 which is low, vit roe B12 greater than 2000. Triglycerides 191, cholesterol 116, LDL 56, HDL 22, TSH 1.33. The patie nt had AST of 21, ALT of 14, alkaline phosphatase 85, troponin I 15.5 which is normal. Total protein 6.9, albumin 3.0. UA; 1+ ketones, trace blood, 11 to 20 RBCs, 11 to 20 white blood cells, less than 5 squamous epithelial cells, negative nitrite and leukocyte esterase, 3+ protein. COVID-19 testing was negative. Chest x-ray revealed hazy right basilar airspace opacifications, improved since 2000, may represent recurrent pneumonia versus atelectasis or scar. CT chest revealed [id number] rig ht lower lobe opacities, probably combination of atelectasis and scarring, this mostly present since 2020 CT of the abdomen, ground-glass opacity in the left upper lobe, [id number] patchy right lo wer lobe opacities. There is thickening of the proximal to mid esophagus with multiple enlarged medi astinal hilar lymph nodes largest being 2 cm. Some calcified hilar mediastinal lymph nodes as well. Minimal right pleural effusion. No pericardial effusions and some coronary artery calcifications. Renal ultrasound; mildly echogenic kidneys bilaterally suggesting medical renal disease. Impression: 1.Esophagitis with CT of chest revealing thickening of the proximal to mid esophagus with multiple e nlarged mediastinal lymph nodes up to 2 cm in size concerning for possible cancer. Also, some mild-t o-moderate right lower lobe changes, mostly seen in 2020 CT of the abdomen. 2.Anemia. Hemoglobin 6.8, up to 8.0. Transfusion. Patient has experienced weakness and dizziness. Needs to investigate with EGD . 3.70 pounds weight loss over the past 1 to 2 months going from 210 to 140 pounds with a 60 pack-year tobacco history. May need biopsies of mediastinal or hilar lymph nodes. We will proceed with EGD e valuation, may need a colonoscopy. 4.A 2 cm midepigastric submucosal mass felt on examination. We may need CT of abdomen to further as sess. No signs of any surgical implanted devices noted there such as gastric band or other. 5.History of diabetes, hypertension, hyperlipidemia, coronary artery disease, status post myocardial infarction, cardiac stent in the past in the remote past over 10 years ago. He has generalized anxi ety disorder, depression, chronic obstructive pulmonary disease, chronic kidney disease, and knee soledad josé. Recommendations: 1.Proceed with EGD. 2.Consider colonoscopy. 3.PPI therapy. 4.Consider CT of the abdomen for midepigastric mass, which is 2 cm in size and submucosal. 5.Keep n.p.o. 6.Serial H and H, and transfuse p.r.n. WS/BENITO Voice ID: [id number] Report ID: [id number]
[2022-07-10] MEDS: ACETAMINOPHEN 325 MG TABLET PO PRN (15:53)
[2022-07-10] MEDS: ALBUTEROL 2.5 MG/3 ML NEB SOL NEB PRN (20:20)
[2022-07-10] MEDS: FINASTERIDE 5 MG TAB PO SCH (21:02)
[2022-07-10] MEDS: TRAZODONE 50 MG TABLET PO PRN (21:02)
[2022-07-10] MEDS: AZITHROMYCIN IV 500 MG in NA CHLORIDE 0.9% 250 ML IVPB SCH (23:49)
[2022-07-11] MEDS: ACETAMINOPHEN 325 MG TABLET PO PRN ×3 (00:33→19:59)
[2022-07-11] MEDS: INSULIN -REGULAR HUMAN 50 UNIT/0.5 ML ML SQ SCH ×4 (06:00→18:00)
[2022-07-11] MEDS: KCL 20 MEQ/100 mL IVPB 20 MEQ/100 ML BAG IV SCH ×2 (06:02→08:27)
[2022-07-11] MEDS: PANTOPRAZOLE 40 MG INJ IVP SCH (08:29)
[2022-07-11] MEDS: CEFTRIAXONE 1,000 MG in NA CHLORIDE 0.9% 50 ML IVPB SCH (08:32)
[2022-07-11] MEDS: ASPIRIN 81 MG CHEWABLE TABLET PO SCH (08:34)
[2022-07-11] MEDS: TAMSULOSIN 0.4 MG SR CAP PO SCH (08:34)
[2022-07-11] MEDS: NACHLORIDE 0.45% 1,000 ML IV SCH ×2 (10:00)
[2022-07-11] MEDS: NACHLORIDE 0.45% 1,000 ML with NA BICARB 8.4% 50 MEQ IV SCH ×4 (11:48→20:30)
[2022-07-11] MEDS ORDERED: NA CHLORIDE 0.9% 1,000 ML ONE (13:37)
[2022-07-11] MEDS ORDERED: propofoL 200 MG/20 ML VIAL IV ONE ×2 (13:59)
--- NOTE | 2022-07-11 15:03 | RAD REPORT ---
EXAM DESCRIPTION: CT - Abdomen Pelvis W Contrast - 07/11/2022 5:53 am CLINICAL HISTORY: The patient is 77 years old and is Male; Abd pain, nausea, poor apetite TECHNIQUE: Axial computed tomography images of the abdomen and pelvis with intravenous contrast. S agittal and coronal reformatted images were created and reviewed. This CT exam was performed using one or more of the following dose reduction techniques: automated exposure control, adjustment of t he mA and/or kV according to patient size, and/or use of iterative reconstruction technique. COMPARISON: CT abdomen pelvis October 13, 2020. FINDINGS: Artifacts: Motion artifact limits evaluation. Lung bases: Residual atelectasis or scarring in the right lower lobe. Heart: Mild cardiomegaly. Coronary artery calcifications. ABDOMEN: Liver: Faint hypodense lesions in the right hepatic lobe, not clearly visualized on the prior no n-IV contrasted exam, the largest measuring 2.4 cm. Minimal amount of subcapsular fluid collection posterior right hepatic lobe. Gallbladder and bile ducts: Unremarkable. No calcified stones. No ductal dilation. Pancreas: Atrophic pancreas. Spleen: No splenomegaly. Adrenals: Unremarkable. No mass. Kidneys and ureters: Unremarkable. No solid mass. No hydronephrosis. Stomach and bowel: Fluid in the lumen of the distal colon which may indicate diarrheal symptoms. No definite findings of colitis or diverticulitis. No small bowel dilatation or obstruction. PELVIS: Appendix: No findings to suggest acute appendicitis. Bladder: Unremarkable. No mass. Reproductive: Unremarkable as visualized. ABDOMEN and PELVIS: Intraperitoneal space: Unremarkable. No free air. No significant fluid collection. Bones/joints: Degenerative changes in the lumbar spine. No acute fracture visualized. No dislocation. Soft tissues: Unremarkable. Vasculature: Atherosclerotic changes. No abdominal aortic aneurysm. Lymph nodes: No pathologically enlarged lymph nodes. IMPRESSION: 1. Motion artifact limits evaluation. 2. Faint hypodense lesions in the right hepatic lobe, not clearly visualized on the prior exam, the largest measuring 2.4 cm. Metastatic lesions cannot be excluded. Clinical correlation suggested. 3. Fluid in the lumen of the distal colon which may indicate diarrheal symptoms. No definite findin gs of colitis or diverticulitis. 4. Residual atelectasis or scarring in the right lower lobe. 5. Additional non-emergent findings as above. Electronically signed by: Jessica Modi MD 07/11/2022 5:40 AM [employer] Due to temporary technical issues with the PACS/Fluency reporting system, reports are being signed by the in house radiologists without review as a courtesy to insure prompt reporting. The interpreting radiologist is fully responsible for the content of the report.
[2022-07-11] MEDS: ALBUTEROL 2.5 MG/3 ML NEB SOL NEB PRN (18:11)
[2022-07-11] MEDS ORDERED: POTASSIUM CL SA 10 MEQ TAB PO ONE (19:00)
[2022-07-11] MEDS: TRAZODONE 50 MG TABLET PO PRN (19:59)
[2022-07-11] MEDS: FINASTERIDE 5 MG TAB PO SCH (20:00)
[2022-07-11] MEDS: PANTOPRAZOLE 40MG TABLET PO SCH (20:00)
[2022-07-11] MEDS ORDERED: DRISDOL (VITAMIN D=ERGOCALCIFEROL) 50000 UNIT CAP PO SCH (21:00)
--- NOTE | 2022-07-11 21:02 | P.PN ---
Date of Service: 07/11/22 Vital Signs Temp Pulse Resp BP Pulse Ox 97.8 F 63 16 189/79 H 97 07/11/22 16:00 07/11/22 16:00 07/11/22 16:00 07/11/22 16:00 07/11/22 16:00 Medications Acetaminophen (Acetaminophen 325 Mg Tablet) 650 mg PO Q6H PRN PRN Reason: TEMP > 100.4' F Last Admin: 07/11/22 19:59 Dose: 650 mg Albuterol Sulfate (Albuterol 2.5 Mg/3 Ml Neb Suyapa) 2.5 mg NEB [id number] PRN PRN Reason: SHORTNESS OF BREATH Last Admin: 07/11/22 18:11 Dose: 2.5 mg Aspirin (Aspirin 81 Mg Chewable Tablet) 81 mg PO DAILY [facility] Last Admin: 07/11/22 08:34 Dose: Not Given Ergocalciferol (Drisdol (Vitamin D=Ergocalciferol) 53392 Unit Cap) 50,000 unit PO Q7D ILANA Last Admin: 07/11/22 20:11 Dose: 50,000 unit Finasteride (Finasteride 5 Mg Tab) 5 mg PO BEDTIME ILANA Last Admin: 07/11/22 20:00 Dose: 5 mg Hydralazine HCl (Hydralazine Hcl 20 Mg/Ml Vial) 10 mg IV Q6HP PRN PRN Reason: FOR SBP>160 OR DBP>100 MMHG Ceftriaxone Sodium 1,000 mg/ (Sodium Chloride) 50 mls @ 100 mls/hr IVPB DAILY [facility]; Protocol Last Admin: 07/11/22 08:32 Dose: 50 mls Azithromycin 500 mg/ Sodium (Chloride) 250 mls @ 250 mls/hr IVPB 2300 ILANA; Protocol Last Admin: 07/10/22 23:49 Dose: 250 mls Sodium Bicarbonate 50 meq/ (Sodium Chloride) 1,050 mls @ 100 mls/hr IV .[id number] ILANA Last Admin: 07/11/22 11:48 Dose: 1,050 mls Insulin Human Regular (Insulin -Regular Human 50 Unit/0.5 Ml Ml) 0 unit SQ Q6HR ILANA; Protocol Last Admin: 07/11/22 12:00 Dose: Not Given Ondansetron HCl (Ondansetron 4 Mg/2 Ml Vial) 4 mg IV Q6HP PRN PRN Reason: NAUSEA / VOMITING Pantoprazole Sodium (Pantoprazole 40mg Tablet) 40 mg PO BID [facility]; Protocol Last Admin: 07/11/22 20:00 Dose: 40 mg Sodium Chloride (Flush Normal Saline 10 Ml) 10 ml IV BID [facility] Last Admin: 07/11/22 20:00 Dose: 10 ml Sodium Chloride (Sodium Chloride 0.9% 10ml Inj) 10 ml IV UD PRN PRN Reason: Diluant Tamsulosin HCl (Tamsulosin 0.4 Mg Sr Cap) 0.4 mg PO DAILY [facility] Last Admin: 07/11/22 08:34 Dose: Not Given Trazodone HCl (Trazodone 50 Mg Tablet) 50 mg PO BEDTIME PRN PRN PRN Reason: INSOMNIA Last Admin: 07/11/22 19:59 Dose: 50 mg Microbiology Results 07/08/22 12:45 Clean Catch Urine [place] Count - Final <10,000 CFU/ML. 07/08/22 12:45 Clean Catch Urine - Final MIXED VINCENZO. Assessment/ Plan: Nephrology Reports worsening dyspnea this evening No chest pain No acute events overnight Vitals, medications, blood work and imaging reviewed in the chart. General: In no apparent distress, Oriented x3, Cooperative HEENT: Atraumatic Neck: Supple Respiratory: Clear to auscultation bilaterally Cardiovascular: No edema, Regular rate/rhythm Gastrointestinal: Soft and benign, Non-distended Musculoskeletal: No clubbing, No contractures Integumentary: No rashes, No cyanosis Blood work reviewed in the chart. Imagings Data: EXAM DESCRIPTION: [facility] Single View07/08/2022 10:16 am CLINICAL HISTORY: weakness COMPARISON: Chest Single View dated 11/11/2020; Chest Single View dated 07/02/2020; Chest Single View dated 05/13/2019; Chest Single View dated 02/13/2018 TECHNIQUE: Portable AP view of the chest. FINDINGS: Hazy right basal airspace opacification. The appearance is improved since the prior exam of 2020. No pneumothorax or effusion. The cardiomediastinal contours are unremarkable. IMPRESSION: Hazy right basal airspace opacification, although improved since 2020. Appearance may relate to recurrent pneumonia or persistent atelectasis/scarring. EXAM DESCRIPTION: CT - Thorax Con - 07/08/2022 3:11 pm CLINICAL HISTORY: sob COMPARISON: [address] abdomen TECHNIQUE: Computed axial tomography of the chest was obtained. Contrast was not requested. All CT scans are performed using dose optimization technique as appropriate and may include automated exposure control or mA/KV adjustment according to patient size. FINDINGS: The evaluation of mediastinum, lenny and vessels is limited secondary to lack of IV contrast administration. Mild chronic appearing interstitial lung opacities are present. Mild to moderate right lower lobe opacities. These were mostly present on the 2020 CT abdomen Mild ground-glass opacity left upper lobe. Mild to moderate patchy right lower lobe opacities probably are combination of atelectasis and scarring. Multiple enlarged mediastinal and hilar lymph nodes. The lymph nodes measure up to 2 centimeter short axis. Some were present on the prior exam. Some have developed. Small calcified hilar mediastinal lymph nodes. Minimal right pleural effusion. No pericardial effusion. Coronary arterial calcifications. The wall of the mid and proximal esophagus appears thickened. IMPRESSION: Mild to moderate patchy right lower lobe opacities probably are combination of atelectasis scarring Esophageal wall thickening. Direct visualization recommended Mediastinal and hilar lymphadenopathy. Some of the lymphadenopathy was present on the prior exam. Some of the lymph nodes have developed. These all may be inflammatory in neoplasm. Another consideration is that this represents a combination of inflammatory and neoplastic lymph nodes. PET-CT recommended. EXAM DESCRIPTION: US - Renal Ultrasound-Complete - 07/10/2022 1:07 am CLINICAL HISTORY: LIANNA vs CKD Flank pain COMPARISON: Abdomen Exam Limited dated 05/13/2019 FINDINGS: Mildly echogenic kidneys bilaterally suggests underlying medical renal disease. The right kidney measures 9.0 x 4.2 x 4.2 cm. No hydronephrosis, focal mass or perinephric fluid. The left kidney measures 9.2 x 6.3 x 4.5 cm. No hydronephrosis, focal mass or perinephric fluid. The urinary bladder is incompletely distended without gross abnormality seen. IMPRESSION: Mildly echogenic kidneys bilaterally suggesting medical renal disease. Conclusions/Impression: Stage I LIANNA likely due to hypovolemia CKD III with proteinuria (Baseline creatinine unknown) -No NSAIDs -Discontinue IVF due to worsening dyspnea -Renal US ordered Hypokalemia -Replete potassium HTN with CKD -Hydralazine prn DM II with CKD -RISS Anemia in chronic illness -Transfuse PRBC as ordered BPH with LUTS -Continue finasteride and flomax
[2022-07-11] MEDS: AZITHROMYCIN IV 500 MG in NA CHLORIDE 0.9% 250 ML IVPB SCH (23:47)
[2022-07-12] MEDS: INSULIN -REGULAR HUMAN 50 UNIT/0.5 ML ML SQ SCH ×4 (06:00→18:00)
[2022-07-12 06:01] LABS: Absolute Lymphocytes (CBC) 1.2 K/uL (0.7-4.9); Hematocrit 23.9 % (39.6-49.0); Lymphocytes % 18.4 % (15.3-44.8); MCV 86.5 fL (80-100); MPV 8.1 fL (7.6-11.3); RBC Red Blood Cell Count 2.77 M/uL (4.33-5.43)
[2022-07-12 06:19] LABS: Albumin 2.8 g/dL (3.4-5.0); Bilirubin Total 0.4 mg/dL (0.2-1.0); Potassium 3.4 mmol/L (3.5-5.1); Protein, Total 6.1 g/dL (6.4-8.2)
[2022-07-12] MEDS: CEFTRIAXONE 1,000 MG in NA CHLORIDE 0.9% 50 ML IVPB SCH (09:00)
[2022-07-12] MEDS: ASPIRIN 81 MG CHEWABLE TABLET PO SCH (09:00)
[2022-07-12] MEDS: TAMSULOSIN 0.4 MG SR CAP PO SCH (09:00)
[2022-07-12] MEDS: PANTOPRAZOLE 40MG TABLET PO SCH ×2 (09:00→20:01)
[2022-07-12] MEDS ORDERED: POTASSIUM CL SA 10 MEQ TAB PO ONE ×3 (10:00→16:53)
--- NOTE | 2022-07-12 11:19 | RAD REPORT ---
EXAM DESCRIPTION: RAD - Small Bowel Series - 07/12/2022 10:35 am CLINICAL HISTORY: GI BLEED Abdominal pain COMPARISON: Abdomen Pelvis W Contrast dated 07/11/2022 FINDINGS: Supply Chain Coordinator film shows a nonspecific bowel gas pattern. No obstruction or free air. No suspiciou s calcifications. Gastric size and mucosal fold pattern are normal. No delay in transit of contrast into the small freeman l. Small bowel is normal in diameter with no mucosal fold thickening. No intrinsic or extrinsic mass identifiable. Terminal ileum has normal appearance. Transit time to the colon is normal. No fluoroscopy was performed. Total images acquired: 12 IMPRESSION: Normal small bowel series.
[2022-07-12 13:00] LABS: Platelet Estimate ADEQ
[2022-07-12 13:01] LABS: Anisocytosis SLIGHT; Blood Morphology Comment NOTED (NOT SEEN); Hypochromasia 1+; Platelets, Giant 1+
[2022-07-12] MEDS: ALBUTEROL 2.5 MG/3 ML NEB SOL NEB PRN (14:27)
[2022-07-12] MEDS: ACETAMINOPHEN 325 MG TABLET PO PRN (17:18)
[2022-07-12 17:57] LABS: Absolute Lymphocytes (CBC) 1.8 K/uL (0.7-4.9); Hematocrit 24.6 % (39.6-49.0); Lymphocytes % 25.6 % (15.3-44.8); MCV 86.1 fL (80-100); MPV 8.1 fL (7.6-11.3); RBC Red Blood Cell Count 2.85 M/uL (4.33-5.43)
[2022-07-12] MEDS: FINASTERIDE 5 MG TAB PO SCH (20:01)
[2022-07-12] MEDS: TRAZODONE 50 MG TABLET PO PRN (20:01)
--- NOTE | 2022-07-12 23:26 | P.PN ---
Date of Service: 07/12/22 Vital Signs Temp Pulse Resp BP Pulse Ox 97.7 F 88 18 125/59 L 93 07/12/22 20:00 07/12/22 20:00 07/12/22 20:00 07/12/22 20:00 07/12/22 20:00 Medications Acetaminophen (Acetaminophen 325 Mg Tablet) 650 mg PO Q6H PRN PRN Reason: TEMP > 100.4' F Last Admin: 07/12/22 17:18 Dose: 650 mg Albuterol Sulfate (Albuterol 2.5 Mg/3 Ml Neb [place]) 2.5 mg NEB [id number] PRN PRN Reason: SHORTNESS OF BREATH Last Admin: 07/12/22 14:27 Dose: 2.5 mg Aspirin (Aspirin 81 Mg Chewable Tablet) 81 mg PO DAILY [facility] Last Admin: 07/12/22 09:00 Dose: Not Given Ergocalciferol (Drisdol (Vitamin D=Ergocalciferol) 54199 Unit Cap) 50,000 unit PO Q7D [facility] Last Admin: 07/11/22 20:11 Dose: 50,000 unit Finasteride (Finasteride 5 Mg Tab) 5 mg PO BEDTIME [facility] Last Admin: 07/12/22 20:01 Dose: 5 mg Hydralazine HCl (Hydralazine Hcl 20 Mg/Ml Vial) 10 mg IV Q6HP PRN PRN Reason: FOR SBP>160 OR DBP>100 MMHG Ceftriaxone Sodium 1,000 mg/ (Sodium Chloride) 50 mls @ 100 mls/hr IVPB DAILY [facility]; Protocol Last Admin: 07/12/22 09:00 Dose: Not Given Azithromycin 500 mg/ Sodium (Chloride) 250 mls @ 250 mls/hr IVPB 2300 [facility]; Protocol Last Admin: 07/11/22 23:47 Dose: 250 mls Insulin Human Regular (Insulin -Regular Human 50 Unit/0.5 Ml Ml) 0 unit SQ Q6HR [facility]; Protocol Last Admin: 07/12/22 18:00 Dose: Not Given Ondansetron HCl (Ondansetron 4 Mg/2 Ml Vial) 4 mg IV Q6HP PRN PRN Reason: NAUSEA / VOMITING Pantoprazole Sodium (Pantoprazole 40mg Tablet) 40 mg PO BID [facility]; Protocol Last Admin: 07/12/22 20:01 Dose: 40 mg Sodium Chloride (Flush Normal Saline 10 Ml) 10 ml IV BID [facility] Last Admin: 07/12/22 20:00 Dose: 10 ml Sodium Chloride (Sodium Chloride 0.9% 10ml Inj) 10 ml IV UD PRN PRN Reason: Diluant Tamsulosin HCl (Tamsulosin 0.4 Mg Sr Cap) 0.4 mg PO DAILY [facility] Last Admin: 07/12/22 09:00 Dose: Not Given Trazodone HCl (Trazodone 50 Mg Tablet) 50 mg PO BEDTIME PRN PRN PRN Reason: INSOMNIA Last Admin: 07/12/22 20:01 Dose: 50 mg Microbiology Results 07/08/22 12:45 Clean Catch Urine [place] Count - Final <10,000 CFU/ML. 07/08/22 12:45 Clean Catch Urine - Final MIXED [place]. Assessment/ Plan: Nephrology No dyspnea No chest pain No acute events overnight Vitals, medications, blood work and imaging reviewed in the chart. General: In no apparent distress, Oriented x3, Cooperative HEENT: Atraumatic Neck: Supple Respiratory: Clear to auscultation bilaterally Cardiovascular: No edema, Regular rate/rhythm Gastrointestinal: Soft and benign, Non-distended Musculoskeletal: No clubbing, No contractures Integumentary: No rashes, No cyanosis Blood work reviewed in the chart. Imagings Data: [facility]16 [facility] CLINICAL HISTORY: weakness COMPARISON: Chest Single View dated 11/11/2020; Chest Single View dated 07/02/2020; Chest Single View dated 05/13/2019; Chest Single View dated 02/13/2018 TECHNIQUE: Portable AP view of the chest. FINDINGS: Hazy right basal airspace opacification. The appearance is improved since the prior exam of 2020. No pneumothorax or effusion. The cardiomediastinal contours are unremarkable. IMPRESSION: Hazy right basal airspace opacification, although improved since 2020. Appearance may relate to recurrent pneumonia or persistent atelectasis/scarring. EXAM DESCRIPTION: CT - Thorax Wo Con - 07/08/2022 3:11 pm CLINICAL HISTORY: sob COMPARISON: [address] abdomen TECHNIQUE: Computed axial tomography of the chest was obtained. Contrast was not requested. All CT scans are performed using dose optimization technique as appropriate and may include automated exposure control or mA/KV adjustment according to patient size. FINDINGS: The evaluation of mediastinum, lenny and vessels is limited secondary to lack of IV contrast administration. Mild chronic appearing interstitial lung opacities are present. Mild to moderate right lower lobe opacities. These were mostly present on the 2020 CT abdomen Mild ground-glass opacity left upper lobe. Mild to moderate patchy right lower lobe opacities probably are combination of atelectasis and scarring. Multiple enlarged mediastinal and hilar lymph nodes. The lymph nodes measure up to 2 centimeter short axis. Some were present on the prior exam. Some have developed. Small calcified hilar mediastinal lymph nodes. Minimal right pleural effusion. No pericardial effusion. Coronary arterial calcifications. The wall of the mid and proximal esophagus appears thickened. IMPRESSION: Mild to moderate patchy right lower lobe opacities probably are combination of atelectasis scarring Esophageal wall thickening. Direct visualization recommended Mediastinal and hilar lymphadenopathy. Some of the lymphadenopathy was present on the prior exam. Some of the lymph nodes have developed. These all may be inflammatory in neoplasm. Another consideration is that this represents a combination of inflammatory and neoplastic lymph nodes. PET-CT recommended. EXAM DESCRIPTION: US - Renal Ultrasound-Complete - 07/10/2022 1:07 am CLINICAL HISTORY: LIANNA vs CKD Flank pain COMPARISON: Abdomen Exam Limited dated 05/13/2019 FINDINGS: Mildly echogenic kidneys bilaterally suggests underlying medical renal disease. The right kidney measures 9.0 x 4.2 x 4.2 cm. No hydronephrosis, focal mass or perinephric fluid. The left kidney measures 9.2 x 6.3 x 4.5 cm. No hydronephrosis, focal mass or perinephric fluid. The urinary bladder is incompletely distended without gross abnormality seen. IMPRESSION: Mildly echogenic kidneys bilaterally suggesting medical renal disease. Conclusions/Impression: Stage I LIANNA likely due to hypovolemia CKD III with proteinuria (Baseline creatinine unknown) -No NSAIDs -Renal US reviewed Hypokalemia -Replete potassium prn HTN with CKD -Hydralazine prn DM II with CKD -RISS Anemia in chronic illness -Transfuse PRBC as ordered BPH with LUTS -Continue finasteride and flomax
[2022-07-12] MEDS: AZITHROMYCIN IV 500 MG in NA CHLORIDE 0.9% 250 ML IVPB SCH (23:55)
[2022-07-13] MEDS ORDERED: POTASSIUM CL SA 10 MEQ TAB PO ONE ×2 (01:09→09:00)
[2022-07-13] MEDS: ACETAMINOPHEN 325 MG TABLET PO PRN ×2 (02:04→13:40)
[2022-07-13 04:04] LABS: Potassium 3.9 mmol/L (3.5-5.1)
[2022-07-13] MEDS: INSULIN -REGULAR HUMAN 50 UNIT/0.5 ML ML SQ SCH ×5 (05:52→23:25)
[2022-07-13] MEDS: TAMSULOSIN 0.4 MG SR CAP PO SCH (08:30)
[2022-07-13] MEDS: ASPIRIN 81 MG CHEWABLE TABLET PO SCH (08:30)
[2022-07-13] MEDS: PANTOPRAZOLE 40MG TABLET PO SCH ×2 (08:31→19:49)
[2022-07-13] MEDS: CEFTRIAXONE 1,000 MG in NA CHLORIDE 0.9% 50 ML IVPB SCH (08:32)
[2022-07-13 11:27] LABS: Hematocrit 24.7 % (39.6-49.0); Lymphocytes % 32.1 % (15.3-44.8); RBC Red Blood Cell Count 2.84 M/uL (4.33-5.43)
[2022-07-13] MEDS ORDERED: NA CHLORIDE 0.9% 100 ML ONE (14:56)
[2022-07-13] MEDS: ALBUTEROL 2.5 MG/3 ML NEB SOL NEB PRN (19:40)
[2022-07-13] MEDS: TRAZODONE 50 MG TABLET PO PRN (19:50)
[2022-07-13] MEDS: FINASTERIDE 5 MG TAB PO SCH (19:50)
--- NOTE | 2022-07-13 21:58 | P.PN ---
Date of Service: 07/11/22 Subjective EGD completed. Patient with esophageal candidiasis. Will do colonoscopy. Blood sugars are stable. Encourage oral intake. Review of Systems 10-point ROS is otherwise unremarkable Physical Examination - Vital Signs Reviewed - Physical Exam General: Alert, In no apparent distress, Oriented x3 Respiratory: Diminished Cardiovascular: Regular rate/rhythm, Normal S1 S2, No murmurs Gastrointestinal: Soft and benign, Non-distended, No rebound, No guarding, Tenderness Musculoskeletal: No clubbing, No swelling, No tenderness Neurological: Sensation intact, Cranial nerves 3-12 intact - Studies Medications List Reviewed: Yes Assessment & Plan - Problems (Diagnosis) (1) GI bleeding Current Visit: Yes Status: Acute (2) Anemia due to acute blood loss Current Visit: Yes Status: Acute (3) Cachexia Current Visit: Yes Status: Acute (4) COPD (chronic obstructive pulmonary disease) Current Visit: Yes Status: Acute (5) HTN (hypertension) Current Visit: Yes Status: Acute (6) DM2 (diabetes mellitus, type 2) Current Visit: Yes Status: Acute - Plan continue with plan of care as mentioned below: 1. Continue with IV hydration and PPI drip 2. strict blood pressure and blood sugar control 3. Continue with pain control 4. EGD with esophageal candidiasis. Patient also with hiatal hernia. 5. GI consultation Appreciated; colonoscopy in the morning 6. continue with antifungal and nystatin 7. GI and DVT prophylaxis
--- NOTE | 2022-07-13 22:02 | P.PN ---
Subjective Date of Service: 07/09/22 We will go ahead and transfuse 2 units of packed red blood cells. Consult gastroenterology. Patient also with difficulty with eating and pain on swallowing. Feels like food gets stuck in the back of the throat. Continue with current plan of care at this time. Review of Systems 10-point ROS is otherwise unremarkable Physical Examination - Vital Signs Temperature: 97.4 F Blood Pressure: 156/78 Pulse: 79 Respirations: 16 Pulse Ox (%): 99 - Physical Exam General: Alert, In no apparent distress, Oriented x3 Respiratory: Diminished Cardiovascular: Regular rate/rhythm, Normal S1 S2, No murmurs Gastrointestinal: Soft and benign, Non-distended, No rebound, No guarding, Tenderness Musculoskeletal: No clubbing, No swelling, No tenderness Neurological: Sensation intact, Cranial nerves 3-12 intact - Studies Medications List Reviewed: Yes Assessment & Plan - Problems (Diagnosis) (1) GI bleeding Current Visit: Yes Status: Acute (2) Anemia due to acute blood loss Current Visit: Yes Status: Acute (3) Cachexia Current Visit: Yes Status: Acute (4) COPD (chronic obstructive pulmonary disease) Current Visit: Yes Status: Acute (5) HTN (hypertension) Current Visit: Yes Status: Acute (6) DM2 (diabetes mellitus, type 2) Current Visit: Yes Status: Acute - Plan 1. Continue with IV hydration and PPI drip 2. strict blood pressure and blood sugar control 3. Continue with pain control 4. NPO 5. GI consultation 6. Monitor LFTs and lipase along with electrolytes and serial H&H. 7. GI and DVT prophylaxis Discharge Plan: Home Plan to discharge in: Greater than 2 days - Advance Directives Does patient have a Living Will: No Does patient have a Durable POA for Healthcare: No - Code Status/Comfort Care Code Status Assessed: Yes Code Status: Full Code Physician Review: Patient Assessed, Agree with Above Assessment and Plan Critical Care: No Time Spent Managing PTS Care (In Minutes): 35
--- NOTE | 2022-07-13 22:05 | P.PN ---
Date of Service: 07/10/22 Subjective Transfused 2 units of packed red blood cells. Consulted gastroenterology. Endoscopy today. Renal function is improving. Review of Systems 10-point ROS is otherwise unremarkable Physical Examination - Vital Signs reviewed - Physical Exam General: Alert, In no apparent distress, Oriented x3 Respiratory: Diminished Cardiovascular: Regular rate/rhythm, Normal S1 S2, No murmurs Gastrointestinal: Soft and benign, Non-distended, No rebound, No guarding, Tenderness Musculoskeletal: No clubbing, No swelling, No tenderness Neurological: Sensation intact, Cranial nerves 3-12 intact Assessment & Plan - Problems (Diagnosis) (1) GI bleeding Current Visit: Yes Status: Acute (2) Anemia due to acute blood loss Current Visit: Yes Status: Acute (3) Cachexia Current Visit: Yes Status: Acute (4) COPD (chronic obstructive pulmonary disease) Current Visit: Yes Status: Acute (5) HTN (hypertension) Current Visit: Yes Status: Acute (6) DM2 (diabetes mellitus, type 2) Current Visit: Yes Status: Acute - Plan Continue with plan of care as mentioned below: 1. Continue with IV hydration and PPI drip 2. strict blood pressure and blood sugar control 3. Continue with pain control 4. NPO 5. GI consultation 6. Monitor LFTs and lipase along with electrolytes and serial H&H. 7. Hemoglobin has stabilized; continue to monitor 8. GI and DVT prophylaxis Discharge Plan: Home Plan to discharge in: Greater than 2 days
--- NOTE | 2022-07-13 22:11 | P.PN ---
Date of Service: 07/12/22 Subjective Colonoscopy with internal hemorrhoids but no active bleeding. Small bowel series completed with no abnormalities. Advanced diet as tolerated. Anticipate discharge in the morning if patient continues to do well and hemoglobin improves Review of Systems 10-point ROS is otherwise unremarkable Physical Examination - Vital Signs Reviewed - Physical Exam General: Alert, In no apparent distress, Oriented x3 Respiratory: clear bilaterally Cardiovascular: Regular rate/rhythm, Normal S1 S2, No murmurs Gastrointestinal: Soft and benign, Non-distended, No rebound, No guarding, no tenderness Musculoskeletal: No clubbing, No swelling, No tenderness Neurological: Sensation intact, Cranial nerves 3-12 intact - Studies Medications List Reviewed: Yes Assessment & Plan - Problems (Diagnosis) (1) GI bleeding Current Visit: Yes Status: Acute (2) Anemia due to acute blood loss Current Visit: Yes Status: Acute (3) Cachexia Current Visit: Yes Status: Acute (4) COPD (chronic obstructive pulmonary disease) Current Visit: Yes Status: Acute (5) HTN (hypertension) Current Visit: Yes Status: Acute (6) DM2 (diabetes mellitus, type 2) Current Visit: Yes Status: Acute - Plan continue with plan of care as mentioned below: 1. Continue with IV hydration and PPI drip 2. strict blood pressure and blood sugar control 3. Continue with pain control 4. EGD with esophageal candidiasis. Patient also with hiatal hernia. 5. GI consultation Appreciated; colonoscopy in the morning 6. continue with antifungal and nystatin 7. monitor H&H and advanced diet as tolerated 8. GI and DVT prophylaxis
--- NOTE | 2022-07-13 22:12 | P.PN ---
Date of Service: 07/13/22 Subjective patient is doing well no new complaints. However, his hemoglobin has not improved. I am going to go ahead and transfuse him 2 units of packed red blood cells. Repeat his H&H. Review of Systems 10-point ROS is otherwise unremarkable Physical Examination - Vital Signs Reviewed - Physical Exam General: Alert, In no apparent distress, Oriented x3 Respiratory: clear bilaterally Cardiovascular: Regular rate/rhythm, Normal S1 S2, No murmurs Gastrointestinal: Soft and benign, Non-distended, No rebound, No guarding, no tenderness Musculoskeletal: No clubbing, No swelling, No tenderness Neurological: Sensation intact, Cranial nerves 3-12 intact - Studies Medications List Reviewed: Yes Assessment & Plan - Problems (Diagnosis) (1) GI bleeding Current Visit: Yes Status: Acute (2) Anemia due to acute blood loss Current Visit: Yes Status: Acute (3) Cachexia Current Visit: Yes Status: Acute (4) COPD (chronic obstructive pulmonary disease) Current Visit: Yes Status: Acute (5) HTN (hypertension) Current Visit: Yes Status: Acute (6) DM2 (diabetes mellitus, type 2) Current Visit: Yes Status: Acute - Plan continue with plan of care as mentioned below: 1. CTransfuse 2u PRBC & PPI BID 2. strict blood pressure and blood sugar control 3. Continue with pain control 4. EGD with esophageal candidiasis. Patient also with hiatal hernia. 5. GI consultation Appreciated; colonoscopy in the morning 6. continue with antifungal and nystatin 7. monitor H&H and advanced diet as tolerated 8. GI and DVT prophylaxis
[2022-07-13] MEDS ORDERED: FLUCONAZOLE 200mg IVPB 200 MG/100 ML BAG IV SCH (23:00)
[2022-07-14] MEDS: ALBUTEROL 2.5 MG/3 ML NEB SOL NEB PRN (01:40)
[2022-07-14] MEDS ORDERED: GLUCAGON 1 MG/VIAL IM PRN (01:54)
[2022-07-14] MEDS ORDERED: D50W 25 GM/50 ML SYRINGE IV PRN (01:54)
[2022-07-14] MEDS ORDERED: D10W 125 ML IV PRN (02:02)
[2022-07-14] MEDS: ACETAMINOPHEN 325 MG TABLET PO PRN (03:00)
[2022-07-14 03:34] LABS: Absolute Lymphocytes (CBC) 2.8 K/uL (0.7-4.9); Hematocrit 29.5 % (39.6-49.0); Lymphocytes % 37.2 % (15.3-44.8); MCV 86.8 fL (80-100); MPV 8.2 fL (7.6-11.3)
[2022-07-14 03:49] LABS: Potassium 3.6 mmol/L (3.5-5.1)
[2022-07-14] MEDS: INSULIN -REGULAR HUMAN 50 UNIT/0.5 ML ML SQ SCH ×2 (07:30→11:30)
[2022-07-14] MEDS: PANTOPRAZOLE 40MG TABLET PO SCH (08:24)
[2022-07-14] MEDS: TAMSULOSIN 0.4 MG SR CAP PO SCH (08:24)
[2022-07-14] MEDS: ASPIRIN 81 MG CHEWABLE TABLET PO SCH (08:24)
[2022-07-14] MEDS ORDERED: POTASSIUM CL SA 10 MEQ TAB PO ONE (09:00)
[2022-07-14] MEDS ORDERED: NYSTATIN 500,000 UNIT/5 ML UDC PO SCH (09:00)
[2022-07-14 09:44] VITALS: BP 130/74; TEMP 97.9; O2SAT 94
[2022-07-14] MEDS ORDERED: FLUCONAZOLE 200mg IVPB 200 MG/100 ML BAG IV SCH (21:00)
== END 2022-07-14 13:00 | disposition home or self-care (01) | DRG 368 ==
LOC: ER 09:24 → ERHOLD 14:32 → 2ND 22:40
PROVIDERS: ADMIT Hospitalist; ATTEND Hospitalist
PROC: 30233N1 Transfusion of Nonautologous Red Blood Cells into Peripheral Vein, Percutaneous Approach (ICD-10-PCS; 2022-07-09)
PROC: 0DB78ZX Excision of Stomach, Pylorus, Via Natural or Artificial Opening Endoscopic, Diagnostic (ICD-10-PCS; 2022-07-10)
PROC: 0DB68ZX Excision of Stomach, Via Natural or Artificial Opening Endoscopic, Diagnostic (ICD-10-PCS; 2022-07-10)
PROC: 0DB28ZX Excision of Middle Esophagus, Via Natural or Artificial Opening Endoscopic, Diagnostic (ICD-10-PCS; 2022-07-10)
PROC: 0DJD8ZZ Inspection of Lower Intestinal Tract, Via Natural or Artificial Opening Endoscopic (ICD-10-PCS; 2022-07-10)
PROC: 0DB98ZX Excision of Duodenum, Via Natural or Artificial Opening Endoscopic, Diagnostic (ICD-10-PCS; principal; 2022-07-10 09:00)
DX: B37.81 Candidal esophagitis (principal); K21.01 Gastro-esophageal reflux disease with esophagitis, with bleeding; K29.01 Acute gastritis with bleeding; N17.9 Acute kidney failure, unspecified; D62 Acute posthemorrhagic anemia; N39.0 Urinary tract infection, site not specified; Z68.1 Body mass index [BMI] 19.9 or less, adult; R64 Cachexia; J44.9 Chronic obstructive pulmonary disease, unspecified; E78.5 Hyperlipidemia, unspecified; E86.0 Dehydration; K44.9 Diaphragmatic hernia without obstruction or gangrene; K64.8 Other hemorrhoids; F32.A Depression, unspecified; J30.9 Allergic rhinitis, unspecified; N40.1 Benign prostatic hyperplasia with lower urinary tract symptoms; F41.1 Generalized anxiety disorder; E87.6 Hypokalemia; N32.81 Overactive bladder; I12.9 Hypertensive chronic kidney disease with stage 1 through stage 4 chronic kidney disease, or unspecified chronic kidney disease; N18.30 Chronic kidney disease, stage 3 unspecified; E11.22 Type 2 diabetes mellitus with diabetic chronic kidney disease; E11.40 Type 2 diabetes mellitus with diabetic neuropathy, unspecified; D63.1 Anemia in chronic kidney disease; I25.10 Atherosclerotic heart disease of native coronary artery without angina pectoris; F17.210 Nicotine dependence, cigarettes, uncomplicated; I25.2 Old myocardial infarction; Z95.1 Presence of aortocoronary bypass graft; Z63.5 Disruption of family by separation and divorce; Z79.82 Long term (current) use of aspirin; Z79.84 Long term (current) use of oral hypoglycemic drugs; Z79.899 Other long term (current) drug therapy; Z20.822 Contact with and (suspected) exposure to COVID-19
CPT/HCPCS: 36415; 71045; 71250; 74177; 74250; 76770; 80048; 80053; 80061; 81003; 81015; 82105; 82378; 82550; 82607; 82947; 83540; 83735; 84100; 84132; 84439; 84443; 84484; 84550; 85025; 85044; 86335; 86850; 86900; 86901; 87040; 87086; 87088; 87389; 87811; 88305; 88312; 93005; 96361; 96365; 99285; C9113; J0171; J0456; J1450; J2704; J2765; J3475; J3480; J7030; J7050; J7120; J7613; P9016; Q9967

== ENCOUNTER 2022-09-22 18:17 | Inpatient (IN) | payer OTHER ==
--- OUTSIDE RECORDS SUMMARY | 2022-09-22 18:24 | XMS REPORT | Continuity of Care Document ---
:1945 Author Organization [facility] t Address [address] [place] [address] [place] [id number] Care Team Providers Name Role Phone KINA RIDLEY Attending Clinician Unavailable ADELINA ROSENTHAL Attending Clinician Unavailable CURTIS LINDSAY I. Attending Clinician Unavailable PILAR JACOBSON Attending Clinician Unavailable KINA RIDLEY Admitting Clinician Unavailable ADELINA ROSENTHAL Admitting Clinician Unavailable CURTIS LINDSAY I. Admitting Clinician Unavailable PILAR JACOBSON Admitting Clinician Unavailable Payers Payer Name Policy Type Policy Number Effective Date Expiration Date S ource [place] [id number] 1999 00:00:00 [facility] CHOICE [phone] 2020 00:00:00 CARD AND PC3 Problems Condition Condition Condition Status Onset Resolution Last Treating Co mments Source Name Details Category Date Date Treatment Clinician Date Pneumonia Pneumonia Disease [facility] Acute Acute Disease Active [facility] cholecysti cholecysti 6-17 Lak[facility]mi kes tis tis 00:00: Medical 00 Center 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 [facility] mellitus mellitus 00:00: Medica l without without 00 Center complicati complicati on, on, without without long-term long-term current current use of use of insulin insulin Benign Benign Disease Active [facility] prostatic prostatic 3-05 [facility] hyperplasi hyperplasi 00:00: Me dical a with a with 00 Center urinary urinary frequency frequency 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 07[facility]03 [facility] disease disease 00:00: Medical 00 [place] S/P brain S/P brain Disease Active [facility] surgery surgery 07[facility]03 [facility]: Medical 00 [place] Essential Essential Disease Recurre [facility] hypertensi hypertensi nce 07-03 Lakshmi kes on on 00:00: Medical 00 [place] 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 [facility] 00:[facility]: Medical 00 [place] Allergies, Adverse Reactions, Alerts Allergy Allergy Status Severity Reaction(s) Onset Inactive Treating Comm ents Source Name Type Date Date Clinician NO KNOWN Allergy Active [facility] ALLERGIE S Social History Social Habit Start Date Stop Date Quantity Comments Source History of tobacco Cigarette Smoker [facility] use [facility] Tobacco use and 2020-07-02 2020-07-02 Never used [facility] exposure 00:00:00 00:00:00 [facility] Cigarettes smoked 2020-07-02 2020-07-02 [facility] current (pack per 00:00:00 00:00:00 [facility] Center day) - Reported Cigarette 2020-07-02 2020-07-02 [facility] pack-years 00:00:00 00:00:00 [facility] Sex Ass[birth year] [facility] 00:00:00 00:00:00 [facility] Smoking Status Start Date Stop Date Source Current every day smoker 2020-07-02 00:00:00 [facility] Medications Ordered Filled Start Stop Current Ordering [...] Rinse after use . busPIRone Yes 20mg Q.[id number] Take [address] [facility] (BUSPAR) 10 7-23 [id number] by mouth 3 [facility] MG tablet 12:50: [...] mouth Medical capsule 46 daily. Center finasteride 0 Yes 5mg QD Take [address] (PROSCAR) 5 7-23 by mouth [facility] mg tablet 12:50: daily. Medica l 46 Center fluticasone 0 Yes 1{spray Q.5D 1 spray by [facility] [...] Medical 46 daily. Center oxybutynin Yes 5mg Q.95167484 Take [address] [address] (DITROPAN) 7-23 [id number] by mouth 3 [facility] 5 MG tablet [...] 46 night as Center needed for Sleep. acetaminoph Yes 650mg Take 650 C HI [...] Rinse after use . busPIRone Yes 20mg Q.18813646 Take [address] (BUSPAR) 10 7- [id number] by mouth 3 [facility] MG tablet 12:50: [...] MG 12:50: mouth Medical capsule 46 daily. [place] finasteride Yes 5mg QD Take [address] (PROSCAR) 5 - by mouth [facility] mg tablet 12:50: daily. Medica l 46 Center fluticasone Yes 1{spray Q.5D [address] [address] propionate 7- } Nasal [facility] (FLONASE) 12:50: route 2 Medic al 50 46 (two) Center mcg/actuati times on nasal daily. spray folic acid Yes 1mg QD Take [address] (FOLVITE) 1 - by mouth [facility] MG tablet 12:50: daily. Medica l 46 Center multivitami Yes 1{tbl} QD Take [address] n per 11-24 tablet by [facility] tablet 12:50: mouth Medical 46 daily. [place] oxybutynin Yes 5mg Q.28050397 Take [address] (DITROPAN) 7-23 [id number] by mouth 3 [facility] 5 MG tablet 12:50: 3D (three) Med ical 46 times Center daily. tamsulosin Yes .4mg QD Take 0.[address] (FLOMAX) 7-23 mg by [facility] 0.4 mg Cap 12:50: mouth Medica l 24 hr 46 nightly. [place] capsule traZODone 0 Yes 50mg Take [address] (DESYREL) 7-23 by mouth [facility] 50 MG 12:50: every Medical tablet 46 night as Center needed for Sleep. omeprazole Yes 40mg Q.5D Take 1 [facility] (PriLOSEC) 6-18 capsule [facility] 40 MG 00:00: (40 mg Medical capsule 00 total) by Center mouth 2 (two) times daily. polyethylen 0 Yes 17g QD Take [address] e glycol 6-18 by mouth [facility] (GLYCOLAX) 00:00: daily. Medic al 17 gram 00 Center packet senna-docus Yes 1{tbl} QD Take [address] ate 6-18 tablet by [facility] (SENOKOT S) 00:00: mouth Medic al 8.6-50 mg 00 nightly. Center per tablet thiamine 0 Yes 100mg QD Take [address] 100 MG 6-18 tablet [facility] tablet 00:00: (100 mg Medical 00 total) by Center mouth daily. omeprazole Yes 40mg Q.5D Take 1 [facility] (PriLOSEC) 6-18 capsule [facility] 40 MG 00:00: (40 mg Medical capsule 00 total) by Center mouth 2 (two) times daily. polyethylen 0 Yes 17g QD Take [address] e glycol 6-18 by mouth [facility] (GLYCOLAX) 00:00: daily. Medic al 17 gram 00 Center packet senna-docus Yes 1{tbl} QD Take [address] ate 6-18 tablet by [facility] (SENOKOT S) 00:00: mouth Medic al 8.6-50 mg 00 nightly. Center per tablet thiamine 0 Yes 100mg QD Take [address] [...] Planned Date Details Comments Source Future Scheduled 2023-01-[address] [facility] Test 00:00:00 (Season Ended) [code = [facility] INFLUENZA VACCINE (Season Ended)] Future Scheduled 2022-05-[address] [facility] Test 00:00:00 (12+) [code = Medical Center DEPRESSION SCREENING (12+)] Future Scheduled 2022-05-05 FALLS RISK SCREENING [facility] Test 00:00:00 [code = FALLS RISK Medical C enter SCREENING] Future Scheduled 2022-05-[address] [...] Cessation Counseling and Screening (12+)] Future Scheduled 2021-07-[address] [facility] Test 00:00:00 Counseling and Medical Cente r Screening (12+) [code = Tobacco Cessation Counseling and Screening (12+)] Future Scheduled 2021-05-[address] [facility]mi kes Test 00:00:00 measurement (procedure) [facility] [code = 66050336] Future Scheduled 2021-05-[address] [facility]shmi kes Test 00:00:00 measurement (procedure) [facility] [code = 22288192] Future Scheduled 1997 Screening for malignant [facility] Test 00:00:00 neoplasm of lung Medical Casie ter (procedure) [code = 006748105] Future Scheduled 1997 SHINGLES VACCINES ([address] [facility] Test 00:00:00 2) [code = SHINGLES [facility] VACCINES (1 of 2)] Future Scheduled 1997 Screening for malignant [facility] Test 00:00:00 neoplasm of lung Medical Casie ter (procedure) [code = 507641521] Future Scheduled 1997 SHINGLES VACCINES ([address] [facility] Test 00:00:00 2) [code = SHINGLES [facility] VACCINES (1 of 2)] Future Scheduled 1966 DTAP/TDAP/TD VACCINES [facility] 00:00:00 (1 - Tdap) [code = Medical C enter DTAP/TDAP/TD VACCINES (1 - Tdap)] Future Scheduled 1966 DTAP/TDAP/TD VACCINES [facility] 00:00:00 (1 - Tdap) [code = Medical C enter DTAP/TDAP/TD VACCINES (1 - Tdap)] Future Scheduled 1965 HEPATITIS C SCREENING [facility] 00:00:00 [code = HEPATITIS C Medical Center SCREENING] Future Scheduled 1965 HEPATITIS C SCRE[facility]ING [facility] 00:00:00 [code = HEPATITIS C Medical Center SCREENING] Future Scheduled 1957 DIABETIC EYE EXAM [code [facility] 00:00:00 = DIABETIC EYE EXAM] Medical Center Future Scheduled [address] [facility] 00:00:00 examination Medical Center (regime/therapy) [code = 489889254] Future Scheduled 1957 Urine screening for [facility] 00:00:00 protein (procedure) Medical Center [code = 764316414] Future Scheduled 1957 DIABETIC EYE EXAM [code [facility] 00:00:00 = DIABETIC EYE EXAM] Medical Center Future Scheduled [address] Test 00:00:00 examination Medical Center (regime/therapy) [code = 431512178] Future Scheduled 1957 Urine screening for [facility] Test 00:00:00 protein (procedure) Medical Center [code = 837138582] Future Scheduled 1953 PNEUMOCOCCAL 65+ YRS ([address] [facility] Test 00:00:00 - PCV) [code = Medical Cente r PNEUMOCOCCAL 65+ YRS (1 - PCV)] Future Scheduled 1953 PNEUMOCOCCAL 65+ YRS ([address] [facility] Test 00:00:00 - PCV) [code = Medical Cente r PNEUMOCOCCAL 65+ YRS (1 - PCV)] Future Scheduled 1945 COVID-19 VACCINE (#1) [facility] 00:00:00 [code = COVID-[address] VACCINE (#1)] Future Scheduled 1945 COVID-19 VACCINE (#1) [facility] 00:00:00 [code = COVID-[address] VACCINE (#1)] Future Scheduled 1947 CT Colonography (combo) [facility] 00:00:00 [code = CT Colonography [facility] (combo)] Future Scheduled 1947 Screening for malignant [facility] Test 00:00:00 neoplasm of colon Medical Ce nter (procedure) [code = 448440645] Future Scheduled 1947 Screening for malignant [facility] Test 00:00:00 neoplasm of colon Medical Ce nter (procedure) [code = 293502598] Future Scheduled 1947 Screening for malignant [facility] Test 00:00:00 neoplasm of colon Medical Ce nter (procedure) [code = 369834565] Future Scheduled 1947 Screening for malignant [facility] Test 00:00:00 neoplasm of colon Medical Ce nter (procedure) [code = 966068193] Future Scheduled 1945 Sigmoidoscopy [code = [facility] 00:00:00 Sigmoidoscopy] Medical Cente r Future Scheduled 1947 CT Colonography (combo) [facility] Test 00:00:00 [code = CT Colonography [facility] (combo)] Future Scheduled 1947 Screening for malignant [facility] Test 00:00:00 neoplasm of colon Medical Ce nter (procedure) [code = 003617532] Future Scheduled 1947 Screening for malignant [facility] Test 00:00:00 neoplasm of colon Medical Ce nter (procedure) [code = 332672906] Future Scheduled 1947 Screening for malignant [facility] Test 00:00:00 neoplasm of colon Medical Ce nter (procedure) [code = 004291746] Future Scheduled 1947 Screening for malignant [facility] Test 00:00:00 neoplasm of colon Medical Ce nter (procedure) [code = 468709000] Future Scheduled 1945 Sigmoidoscopy [code = [facility] 00:00:00 Sigmoidoscopy] Medical Cente r Encounters Start End Encounter Admission Attending Care Care Encounter Source Date/Time Date/Time Type Type Clinicians Facility Department ID 2021-02-11 Inpatient ER AHMED, [facility] Pulmonology [id number] [facility] 04:13:37 HOMAIRA 2021-02-11 Inpatient ER [facility] Internal [id number] [facility] 04:12[facility]36 [facility] 2020-10-14 Inpatient ER NEFTALI [facility] General Med 0 [id number] [facility] 03:44:00 MOHAMMAD 2020-07-02 Inpatient ER [facility] Neurology [id number] [facility] 20:02:00 A PILAR MICHELLE Results Test Description Test Time Test Comments Results Result Comments Source POCT-GLUCOSE METER 2020-11-24 11:38:00 Test Item Value Reference Range Interpretation Comme nts POC-GLUCOSE METER (BEAKER) 150 mg/dL 70-110 H : TESTED AT [facility] ODALYS BRICEÑO (test code = 1538) [place] [address]: [employer]/Techni michael ID = [id number] for Saad Avilez a POCT-GLUCOSE [id number] 06:49:00 Test Item Value Reference Range Interpretation Comments POC-GLUCOSE METER 95 mg/dL 70-110 : TESTED A T [facility] (BEAKER) (test code = [address], 1538) [place] [address] 0: [employer]/Techni michael ID = [id number] for Saravanan s, Kebbah POCT-GLUCOSE [id number] 20:48:00 Test Item Value Reference Range Interpretation Comments POC-GLUCOSE METER 146 mg/dL 70-110 H : TESTED A T [facility] (BEAKER) (test code [address], = 1538) [place] [address] 0: [employer]/Techni michael ID = [id number] for Saravanan s, Kebbah POCT-GLUCOSE [id number] 17:03:00 Test Item Value Reference Range Interpretation Comments POC-GLUCOSE METER 117 mg/dL 70-110 H : TESTED A T [facility] (BEAKER) (test code [address], = 1538) [place] [address] 0: [employer]/Techni michael ID = [id number] for Jm amador, Rama [place], CHOLANGIOGRAM, [id number] 15:12:00 [facility] 1945 Sex: MFINAL REPORT Procedure: Cholecystostomy tube check History: cholangiogram PrimaryOperator: Leif Ojeda MD. Company Driver: None. Modality: Fluoroscopy DOSE REDUCTION: The examination was performed according to departmental dose-optimization program which includes automated exposure co ntrol, adjustment of the mA and/or kV according to patient size. Fluoro time: 0.3 minutes. Radiationdose: 18.5 mGy air Kerma. Sedation: Not applicable Anesthesia: Not applicable. Estimated blood loss:0 cc. Technique: The patient was laid supine on the fluoroscopy table. A harpoon engagement planning operator radiograph was obtained. Gentle injection of contrast [...] also considered. There is suggestion of gallbladder adenomyomatosisalso. Impression: Cholecystostomy catheter in the expected location [...] Ojeda Verified Date/Time: 11/23/2020 15:12:15 Reading Location: [facility] [place] Room [place] [address] 1.310.12 POCT-GLUCOSE [id number] 12:08:00 Test Item Value Reference Range Interpretation Comments POC-GLUCOSE METER 147 mg/dL 70-110 H : TESTED A T [facility] (BEAKER) (test code [address], = 1538) [place] [address] 0: [employer]/Techni michael ID = [id number] for Rama Oneal ph POCT-GLUCOSE [id number] 07:08:00 Test Item Value Reference Range Interpretation Comments POC-GLUCOSE METER 94 mg/dL 70-110 : TESTED A T [facility] (BEAKER) (test code = [address], 1538) [place] [address] 0: [employer]/Techni michael ID = [id number] for Safia Galvin POCT-GLUCOSE [id number] 20:59:00 Test Item Value Reference Range Interpretation Comments POC-GLUCOSE METER 103 mg/dL 70-110 : TESTED A T [facility] (BEAKER) (test code [address], = 1538) [place] [address] 0: [employer]/Techni michael ID = [id number] for Safia Galvin POCT-GLUCOSE [id number] 13:39:00 Test Item Value Reference Range Interpretation Comments POC-GLUCOSE METER 141 mg/dL 70-110 H : TESTED A T [facility] (BEAKER) (test code [address], = 1538) [place] [address] 0: [employer]/Techni michael ID = [id number] for Rosemary ramey, Libby POCT-GLUCOSE [id number] 05:52:00 Test Item Value Reference Range Interpretation Comments POC-GLUCOSE METER 108 mg/dL 70-110 : TESTED A T [facility] (BEAKER) (test code [address], = 1538) [place] [address] 0: [employer]/Techni michael ID = [id number] for Queenie Worthington POCT-GLUCOSE [id number] 21:46:00 Test Item Value Reference Range Interpretation Comments POC-GLUCOSE METER 125 mg/dL 70-110 H : TESTED A T [facility] (BEAKER) (test code [address], = 1538) [place] [address] 0: [employer]/Techni michael ID = [id number] for Liset Mcnally SARS-COV2/RT-PCR ([facility])2020-11-21 20:15:00 Test Item Value Reference Range Interpretation Comments SARS-COV2/RT-PCR Negative Negative The SARS-Co V-2 target (test code = 1726781) nuclei c acids are not detected in [...] Xpress SARS-CoV-2/Flu/RSV by their healthcareprovider. Results from [facility] Xpert Xpress SARS-CoV-2/Flu/RSV test should be correlated [...] of the Act.Fact Sheet for Healthcare Providers:https ://www.[employer].com/Documents/Xpert%20Xpress%20SARS%20CoV-2/Fact%20Sheets/302-390 2%11RGWP-TDE-9%20HEALTHCARE%20PROVIDERS%20FACT%20SHEET.pdfFact Sheet for Healthcare Patients:https://www.[employer]/Docum ents/Xpert%20Xpress%20SARS%20Cov-2/Fact%20Sheets/302-3801%84ZVZM-PYU-4%20PATIENT %20FACT%20SHEET.pdfPOCT-GLUCOSE [id number] 16:27:00 Test Item Value Reference Range Interpretation Comments POC-GLUCOSE METER 137 mg/dL 70-110 H : TESTED A T [facility] (BEAKER) (test code [address], = 1538) [place] [address] 0: [employer]/Techni michael ID = [id number] for Jaimie Ramos POCT-GLUCOSE [id number] 11:57:00 Test Item Value Reference Range Interpretation Comments POC-GLUCOSE METER 129 mg/dL 70-110 H : TESTED A T [facility] (BEAKER) (test code [address], = 1538) [place] [address] 0: [employer]/Techni michael ID = [id number] for Jaimie Ramos POCT-GLUCOSE [id number] 06:06:00 Test Item Value Reference Range Interpretation Comments POC-GLUCOSE METER 111 mg/dL 70-110 H : TESTED A T [facility] (BEAKER) (test code [address], = 1538) [place] [address] 0: [employer]/Techni michael ID = [id number] for Holiban lee Cindy CBC W/PLT COUNT & AUTO [id number] 05:58:00 Test Item Value Reference Range Interpretation [...] 1+ few code = 478) BASIC METABOLIC [id number] 05:53:00 Test Item Value Reference Range Interpretation [...] S NOT APPLICABLE FOR DIALYSIS PATIEN TS. [employer] ID - Lisa [id number] 05:53:00 Test Item Value Reference Range Interpretation Comments MAGNESIUM (BEAKER) (test code = 2.2 mg/dL 1.5-3.0 627) [employer] ID - Lisa [id number] 05:53:00 Test Item Value Reference Range Interpretation Comments PHOSPHORUS (BEAKER) (test code = 3.1 mg/dL 2.5-4.5 604) [employer] ID - Lisa TPOCT-GLUCOSE [id number] 20:19:00 Test Item Value Reference Range Interpretation Comments POC-GLUCOSE METER 143 mg/dL 70-110 H : TESTED A T [facility] (BEAKER) (test code [address], = 1538) [facility] [address] 0: [employer]/Techni michael ID = [id number] for Queenie Worthington POCT-GLUCOSE [id number] 17:27:00 Test Item Value Reference Range Interpretation Comments POC-GLUCOSE METER 116 mg/dL 70-110 H : TESTED A T [facility] (BEAKER) (test code [address], = 1538) [place] [address] 0: [employer]/Techni michael ID = [id number] for Terrance Seaman POCT-GLUCOSE [id number] 12:11:00 Test Item Value Reference Range Interpretation Comments POC-GLUCOSE METER 147 mg/dL 70-110 H : TESTED A T [facility] (BEAKER) (test code [address], = 1538) [place] [address] 0: [employer]/Techni michael ID = [id number] for Reina Mitchell POCT-GLUCOSE [id number] 06:39:00 Test Item Value Reference Range Interpretation Comments POC-GLUCOSE METER 120 mg/dL 70-110 H : TESTED A T [facility] (BEAKER) (test code [address], = 1538) [place] [address] 0: [employer]/Techni michael ID = [id number] for Laura Langford CBC W/PLT COUNT & AUTO [id number] 04:59:00 Test Item Value Reference Range Interpretation [...] 0-100 H (BEAKER) (test code = 700) [employer] ID - SHANNONBASIC METABOLIC [id number] 04:30:00 Test Item Value Reference Range Interpretation [...] S NOT APPLICABLE FOR DIALYSIS PATIEN TS. [employer] 04:30:00 Test Item Value Reference Range Interpretation Comments MAGNESIUM (BEAKER) (test code = 2.0 mg/dL 1.5-3.0 627) [employer] 04:30:00 Test Item Value Reference Range Interpretation Comments PHOSPHORUS (BEAKER) (test code = 2.7 mg/dL 2.5-4.5 604) [employer] ID - KAVITAPOCT-GLUCOSE [id number] 20:07:00 Test Item Value Reference Range Interpretation Comments POC-GLUCOSE METER 110 mg/dL 70-110 : TESTED A T [facility] (BEAKER) (test code [address], = 1538) [place] [address] 0: [employer]/Techni michael ID = [id number] for Maribel Eubanks POCT-GLUCOSE [id number] 18:53:00 Test Item Value Reference Range Interpretation Comments POC-GLUCOSE METER 114 mg/dL 70-110 H : TESTED A T [facility] (BEAKER) (test code [address], = 1538) [place] [address] 0: [employer]/Techni michael ID = [id number] for HawaPauline valderramaian RAD, CHEST, 1 VIEW, NON [id number] 15:02:00Reason for exam:->shortness of breathShould this be performed at the bedside?->Yes [facility] 1945 Sex: [...] Margie Foster Verified Date/Time: 11/19/2020 15:02:18 Reading Location:[address] Body Reading Room POCT- GLUCOSE [id number] 11:52:00 Test Item Value Reference Range Interpretation Comments POC-GLUCOSE METER 137 mg/dL 70-110 H : TESTED A T [facility] (test code [address], = 1538) [place] [address] 0: [employer]/Techni michael ID = [id number] for Saaf an, Reina POCT-GLUCOSE [id number] 06:29:00 Test Item Value Reference Range Interpretation Comments POC-GLUCOSE METER 115 mg/dL 70-110 H : TESTED A T [facility] (test code [address], = 1538) [place] [address] 0: [employer]/Techni michael ID = [id number] for Siso n, Chasity BASIC METABOLIC [id number] 04:54:00 Test Item Value Reference Range Interpretation [...] S NOT APPLICABLE FOR DIALYSIS PATIEN TS. [employer] ID Juan Manuel Gonzalez [id number] 04:54:00 Test Item Value Reference Range Interpretation Comments MAGNESIUM (BEAKER) (test code = 2.1 mg/dL 1.5-3.0 627) [employer] ID - Lisa [id number] 04:54:00 Test Item Value Reference Range Interpretation Comments PHOSPHORUS (BEAKER) (test code = 2.5 mg/dL 2.5-4.5 604) [employer] ID Juan Manuel Lisa TCBC W/PLT COUNT & AUTO [id number] 04:49:00 Test Item Value Reference Range Interpretation [...] 1+ few (test code = 478) POCT-GLUCOSE [id number] 20:36:00 Test Item Value Reference Range Interpretation Comments POC-GLUCOSE METER 108 mg/dL 70-110 : TESTED A T [facility] (BEAKER) (test code [address], = 1538) [place] [address] 0: [employer]/Techni michael ID = [id number] for Siswei n, Chasity POCT-GLUCOSE [id number] 17:17:00 Test Item Value Reference Range Interpretation Comments POC-GLUCOSE METER 99 mg/dL 70-110 : TESTED A T [facility] (BEAKER) (test code = [address], 1538) [place] [address] 0: [employer]/Techni michael ID = [id number] for Rama Oneal ph POCT-GLUCOSE [id number] 11:30:00 Test Item Value Reference Range Interpretation Comments POC-GLUCOSE METER 211 mg/dL 70-110 H : TESTED A T [facility] (BEAKER) (test code [address], = 1538) [place] [address] 0: [employer]/Techni michael ID = [id number] for Rosemary ramey Libby [facility], MULTI, PHARM, [id number] 10:12:00NPO AFTER MIDNIGHT. NO CAFFEINE STARTING NOW.Reason for exam:->elevated trop[facility] 1945 Sex: MFINAL [...] not demonstrate any ST-segment changes during stress. FINDINGS:The overall quality of the study is good. Perfusion SPECT images at rest and stress shows a large sized, severe intensity, fixed inferior to infero- apical perfusion defect. There is a second, medium size, m ild-moderate intensity, lateral reversible perfusion defect. The left ventricular (LV) cavity appears normal. The right ventricular (RV) cavity appears normal. The left ventricular ejection fraction (EF) is mildly depressed at 42%. Gated SPECT images shows inferior wall akinesis. IMPRESSION: Abnormal m yocardial perfusion stress test. Overall left ventricular function is mildly depressed with inferiorwall akinesis. Signed: Monica Golden MDRephca midwest division Verified Date/Time: 11/18/2020 10:12:50 CBC W/PLT COUNT & AUTO [id number] 05:28:00 Test Item Value Reference Range Interpretation [...] (test code = 1+ few 477) POCT-GLUCOSE [id number] 05:18:00 Test Item Value Reference Range Interpretation Comments POC-GLUCOSE METER 130 mg/dL 70-110 H : TESTED A T [facility] (BEAKER) (test code [address] DR, = 1538) [facility] 7707 0: [employer] System/Techni michael ID = [id number] for Yannick Stubbs BASIC METABOLIC [id number] 04:20:00 Test Item Value Reference Range Interpretation [...] S NOT APPLICABLE FOR DIALYSIS PATIEN TS. [employer] 04:20:00 Test Item Value Reference Range Interpretation Comments MAGNESIUM (BEAKER) (test code = 2.2 mg/dL 1.5-3.0 627) [employer] 04:20:00 Test Item Value Reference Range Interpretation Comments PHOSPHORUS (BEAKER) (test code = 2.5 mg/dL 2.5-4.5 604) [employer] System ID - SHANNONPOCT-GLUCOSE [id number] 20:16:00 Test Item Value Reference Range Interpretation Comments POC-GLUCOSE METER 141 mg/dL 70-110 H : TESTED A T [facility] (BEAKER) (test code [address]NY [address] DR, = 1538) [place] [address] 0: [employer] System/Techni michael ID = [id number] for Yannick Stubbs POCT-GLUCOSE [id number] 17:09:00 Test Item Value Reference Range Interpretation Comments POC-GLUCOSE METER 176 mg/dL 70-110 H : TESTED A T [facility] (BEAKER) (test code LANNY BRICE[address] DR, = 1538) [place] [address] 0: [employer] System/Techni michael ID = [id number] for Sriram cedeno, Ifnichelleinjc BODY FLUID CULTURE + GRAM [id number] 12:57:00 Test Item Value Reference Range Interpretation Comments CULTURE (BEAKER) (test No growth code = 1095) GRAM STAIN RESULT <1+ White blood cells (BEAKER) (test code = seen 1123) GRAM STAIN RESULT No organisms seen (BEAKER) (test code = 20796) POCT-GLUCOSE [id number] 11:04:00 Test Item Value Reference Range Interpretation Comments POC-GLUCOSE METER 117 mg/dL 70-110 H : TESTED A T [facility] (BEAKER) (test code LANNY BRICE[address] DR, = 1538) [place] [address] 0: [employer] System/Techni michael ID = [id number] for Sriram cedeno, Ifnichelleinwa RAD, CHEST, 1 VIEW, NON [id number] 08:03:00Reason for exam:- >PneumoniaShould this be performed at the bedside?->Yes [facility] 1945 Sex: MFINAL REPORT Chest AP portable erect COMPARISON STUDY: 11/15/2020 History provided: Pneumonia Small pleural effusion remains on the right with atelectatic changes in the right lower lobe. Left lung remains clear. Normal heart size and vascularity. Signed: Richard Montiel Verified Date/Time: 11/17/2020 08:03:31 Reading Location: [facility] Diagnostic Imaging Reading Room - [facility] 1.3 10.12 POCT- GLUCOSE [id number] 06:10:00 Test Item Value Reference Range Interpretation Comments POC-GLUCOSE METER 114 mg/dL 70-110 H : TESTED A T [facility] (BEAKER) (test code SHANEWOO Ravi BRICEÑO DR, = 1538) [facility] [address] 0: [employer] System/Techni michael ID = [id number] for Queenie Worthington CBC W/PLT COUNT & AUTO [id number] 06:05:00 Test Item Value Reference Range Interpretation [...] code = 1+ few 477) BASIC METABOLIC [id number] 05:52:00 Test Item Value Reference Range Interpretation [...] S NOT APPLICABLE FOR DIALYSIS PATIEN TS. [employer] ID - Lisa [id number] 05:52:00 Test Item Value Reference Range Interpretation Comments MAGNESIUM (BEAKER) (test code = 2.2 mg/dL 1.5-3.0 627) [employer] ID - Lisa [id number] 05:52:00 Test Item Value Reference Range Interpretation Comments PHOSPHORUS (BEAKER) (test code = 3.1 mg/dL 2.5-4.5 604) [employer] ID - Lisa TPOCT-GLUCOSE [id number] 21:25:00 Test Item Value Reference Range Interpretation Comments POC-GLUCOSE METER 133 mg/dL 70-110 H : TESTED A T [facility] (BEAKER) (test code LANNY BRICE[address] DR, = 1538) [place] [address] 0: [employer] System/Techni michael ID = [id number] for Reymundo Perry POCT-GLUCOSE [id number] 16:30:00 Test Item Value Reference Range Interpretation Comments POC-GLUCOSE METER 125 mg/dL 70-110 H : TESTED A T [facility] (BEAKER) (test code LANNY BR[address] DR, = 1538) [place] [address] 0: [employer] System/Techni michael ID = [id number] for Sriram cedeno, Jaroneyinwa POCT-GLUCOSE [id number] 11:01:00 Test Item Value Reference Range Interpretation Comments POC-GLUCOSE METER 135 mg/dL 70-110 H : TESTED A T [facility] (BEAKER) (test code LANNY BRICE[address] DR, = 1538) [place] [address] 0: [employer] System/Techni michael ID = [id number] for Chuk cedeno, Ifeyinwa POCT-GLUCOSE [id number] 06:34:00 Test Item Value Reference Range Interpretation Comments POC-GLUCOSE METER 127 mg/dL 70-110 H : TESTED A T [facility] (BEAKER) (test code LANNY BRICE[address]O DR, = 1538) [facility] [address] 0: [employer] System/Techni michael ID = [id number] for Jannette Anaya BASIC METABOLIC [id number] 04:57:00 Test Item Value Reference Range Interpretation [...] S NOT APPLICABLE FOR DIALYSIS PATIEN TS. [employer] 04:57:00 Test Item Value Reference Range Interpretation Comments MAGNESIUM (BEAKER) (test code = 2.2 mg/dL 1.5-3.0 627) [employer] 04:57:00 Test Item Value Reference Range Interpretation Comments PHOSPHORUS (BEAKER) (test code = 3.1 mg/dL 2.5-4.5 604) [employer] ID - SHANNONCBC W/PLT COUNT & AUTO [id number] 04:54:00 Test Item Value Reference Range Interpretation [...] PERCENT (BEAKER) (test code = 2801) POCT-GLUCOSE [id number] 20:29:00 Test Item Value Reference Range Interpretation Comments POC-GLUCOSE METER 148 mg/dL 70-110 H : TESTED A T [facility] (BEAKER) (test code LANNY BRICE[address] DR, = 1538) [place] [address] 0: [employer] System/Techni michael ID = [id number] for Jannette Anaya POCT-GLUCOSE [id number] 17:39:00 Test Item Value Reference Range Interpretation Comments POC-GLUCOSE METER 126 mg/dL 70-110 H : TESTED A T [facility] (BEAKER) (test code LANNY BRICE[address] DR, = 1538) [place] [address] 0: [employer] System/Techni michael ID = [id number] for Terrance Seaman HEMOGLOBIN AND [id number] 14:26:00 Test Item Value Reference Range Interpretation Comments HEMOGLOBIN (BEAKER) (test code = 8.6 GM/DL 13.0-16.8 L 410) HEMATOCRIT (BEAKER) (test code = 28.2 % 36.0-50.0 L 411) POCT-GLUCOSE [id number] 12:53:00 Test Item Value Reference Range Interpretation Comments POC-GLUCOSE METER 117 mg/dL 70-110 H : TESTED A T [facility] (BEAKER) (test code LANNY BRICE[address] DR, = 1538) [place] [address] 0: [employer] System/Techni michael ID = [id number] for Rosemary Gracia BODY FLUID CELL COUNT WITH [id number] 09:25:00 Test Item Value Reference Range Interpretation Comments APPEARANCE FLUID Bloody Clear A (BEAKER) (test code = 510) COLOR FLUID Red Colorless, Straw A (BEAKER) (test code = 511) RBC FLUID (BEAKER) 54921 /cu mm See_Comment H [Automat ed (test code = 513) message] T system which generated this result transmit rukhsana [...] (BEAKER) 0 % (test code = 492) [id number] Da Perez, 0 (BEAKER) (test M.D. (electronic code = 2620) signature) CONTAINER BODY Sterile Container FLUID (BEAKER) (test code = 2873) RAD, CHEST, 1 VIEW, NON [id number] 08:05:00Reason for exam:- >PneumoniaShould this be performed at the bedside?->Yes [facility] 1945 Sex: MFINAL REPORT CHEST AP PORTABLE Comparison exam: 11/14/2020 History provided: Pneumonia Heart size normal. Small residual pleural effusion on the right remains with associated atelectatic changes. Left lung clear. Normal vascularity. Signed: Richard Montiel Verified Date/Time: 11/15/2020 08:05:31 Reading Location: [facility] Diagnostic Imaging Reading Room - [facility] 1.310.12 POCT- GLUCOSE [id number] 06:03:00 Test Item Value Reference Range Interpretation Comments POC-GLUCOSE METER 115 mg/dL 70-110 H : TESTED A T [facility] (BEAKER) (test code LANNY BRICE[address] DR, = 1538) [place] [address] 0: Fre[employer] System/Techni michael ID = [id number] for Marissa Aguilar CBC W/PLT COUNT & AUTO [id number] 04:31:00 Test Item Value Reference Range Interpretation [...] code = 1+ few 768) BASIC METABOLIC [id number] 04:13:00 Test Item Value Reference Range Interpretation [...] S NOT APPLICABLE FOR DIALYSIS PATIEN TS. [employer] System ID - [id number] 22:11:00 Test Item Value Reference Range Interpretation Comments POC-GLUCOSE METER 125 mg/dL 70-110 H : TESTED A T [facility] (BEAKER) (test code LNANY BRICEÑO DR, = 1538) [place] [address] 0: Fre[employer] System/Techni michael ID = [id number] for Padi lla, [place] PROTEIN, BODY [id number] 21:04:00 Test Item Value Reference Range Interpretation Comments PROTEIN FLUID (BEAKER) 4.5 g/dL Light's criteria identifies (test code = 579) effusions if one or more are pre Absence of reference range indicates that normals have not been defined.Assay performance has not been validated for this type of specimen.[employer] System ID - [id number] DEHYDROGENASE (LDH), BODY [id number] 21:00:00 Test Item Value Reference Range Interpretation Comments LACTATE DEHYDROGENASE FLUID 685 U/L Light's criteria (BEAKER) (test code = 634) identifies effusions if one or more are pre Absence of reference range indicates that normals have not been defined.Assay performance has not been validated for this type of specimen.[employer] System ID - [id number] 17:29:00 Test Item Value Reference Range Interpretation Comments POC-GLUCOSE METER 241 mg/dL 70-110 H : TESTED A T [facility] (BEAKER) (test code LANNY BRICE[address] DR, = 1538) [place] [address] 0: Fre[employer] System/Techni michael ID = [id number] for KaitlinDavidson saravia POCT-GLUCOSE [id number] 16:32:00 Test Item Value Reference Range Interpretation Comments POC-GLUCOSE METER 116 mg/dL 70-110 H : TESTED A T [facility] (BEAKER) (test code LANNY BRICE[address] DR, = 1538) [place] [address] 0: Fre[employer] System/Techni michael ID = [id number] for Davidson Edwards RAD, CHEST, 1 VIEW, NON [id number] 16:04:00Reason for exam:->Post Right ThoracentesisShould this be performed at the bedside?->Yes [facility] 1945 Sex: MFINAL REPORT CHEST AP PORTABLE ERECT COMPARISON STUDY: 11/13/2020 History provided: Status post right thoracentesis Diminished volume of pleural fluid on the right following thoracentesis. No pneumothorax. Continued atelectatic changes within the right lower lobe. Left lung clear. Signed: Richard Montiel Verified Date/Time: 11/14/2020 16:04:07 Reading Location: [facility] Diagnostic Imaging Reading Room [place] [address] U/S, [id number] 15:58:00 Laterality?->RightReason for exam:->pleural effusionLabs to be Ordered:- >Other (please add comment) [facility] 1945 Sex: MFINAL [...] space was accessed with a one-stick 5 Venezuelan sheathed needle. Approximately 500 cc of yellow, clear fluid was aspirated. The catheter was removed and a sterile dressing was applied. The patient tolerated the procedure well without apparent complications. The fluid was submitted to the laboratory as requested. IMPRESSION: Uneventful ultrasound guided thoracentesis. Signed: Richard [place] Verified Date/Time: 11/14/2020 15:58:23 Reading Location: [facility] Diagnostic Imaging Reading Room - [facility] 1.310.12 BASI METABOLIC [id number] 05:24:00 Test Item Value Reference Range Interpretation [...] S NOT APPLICABLE FOR DIALYSIS PATIEN TS. [employer] ID - [id number] W/PLT COUNT & AUTO [id number] 05:13:00 Test Item Value Reference Range Interpretation [...] PERCENT (BEAKER) (test code = 2801) POCT-GLUCOSE [id number] 20:54:00 Test Item Value Reference Range Interpretation Comments POC-GLUCOSE METER 144 mg/dL 70-110 H : TESTED A T [facility] (BEAKER) (test code CHASEWOO Ravi BRICE[address]O DR, = 1538) [place] [id number] 0: Fre[employer] System/Techni michael ID = [id number] for Faith Vital [id number] 08:49:00 Test Item Value Reference Range Interpretation Comments MAGNESIUM (MIRIAN) (test code = 2.4 mg/dL 1.5-3.0 627) [employer] System ID - NLYLERAD, CHEST, 1 VIEW, NON [id number] 08:46:00Reason for exam:->Right Thoracentesis has been ordered. Dx: PneumoniaShould this be performed at the bedside?->Yes [facility] 1945 Sex: MFINAL REPORT Chest AP portable erect COMPARISON STUDY: 10/15/2020 History provided: Pleural effusion Small pleural effusion on the right with right basilar atelectasis. Left lung clear. Normal heart size and vascularity. Signed: Richard Montiel [facility] Verified Date/Time: 11/13/2020 08:46:48 Reading Location: [facility] Diagnostic Imaging Reading Room - [facility] 1.310.12 TROPONICalista [id number] 06:38:00 Test Item Value Reference Range Interpretation Comments TROPONIN I (MIRIAN) (test code = 0.22 ng/mL 0.00-0.03 [facility]) Troponin I (TnI) levels must be interpreted [...] failure, acidosis, acute neurological disease, and persistent tachyarrhythmia.[employer] ID - [id number] W/PLT COUNT & AUTO [id number] 04:12:00 Test Item Value Reference Range Interpretation [...] 1+ few (test code = 478) LIPID [id number] 04:11:00 Test Item Value Reference Range Interpretation [...] Borderline 130-159 High 160-189 Very High >=190 [employer] ID - [id number] METABOLIC [id number] 04:06:00 Test Item Value Reference Range Interpretation [...] S NOT APPLICABLE FOR DIALYSIS PATIEN TS. [employer] System ID - [id number] 00:39:00 Test Item Value Reference Range Interpretation [...] failure, acidosis, acute neurological disease, and persistent tachyarrhythmia.[employer] System ID - [id number] TIME/INR 2020-11-13 00:24:00 Test Item Value Reference Range Interpretation Comments PROTIME (BEAKER) 11.8 seconds 9.8-12.0 Final Infor mation (test code = 759) (Auto Outp ut) INR (BEAKER) (test 1.10 See_Comment Final Inf ormation code = 370) (Auto Output) [Automated mess age] The system [employer] generated this result transmitted ref erence range: <=5.90. The reference range was not used to int erpret this result as normal/abnormal . RECOMMENDED COUMADIN/WARFARIN INR THERAPY RANGESSTANDARD DOSE: 2.0 - 3.0 Includes: PROPHYLAXIS for venous thrombosis, systemic embolization; TREATMENT for venous thrombosis and/or pulmonary embolus.HIGH RISK: Target INR is 2.5-3.5 for patients with mechanical heart valves.TROPONIN [id number] 18:59:00 Test Item Value Reference Range Interpretation [...] failure, acidosis, acute neurological disease, and persistent tachyarrhythmia.[employer] ID - BRUCEHEPATIC FUNCTION [id number] 11:48:00 Test Item Value Reference Range Interpretation [...] (test code = 10 U/L 5-50 347) [employer] ID - BRUCEBLOOD GAS, [id number] 08:16:00 Test Item Value Reference Range Interpretation [...] pg/mL 0-100 H (test code = 700) [employer] ID - RICHARDZTROPONIN [id number] 07:21:00 Test Item Value Reference Range Interpretation [...] failure, acidosis, acute neurological disease, and persistent tachyarrhythmia.[employer] ID - CHOPZPOCT-GLUCOSE METER 2020-11-12 07:10:00 Test Item Value Reference Range Interpretation Comments POC-GLUCOSE METER 131 mg/dL 70-110 H : TESTED A T [facility] (BEAKER) (test code LANNY BRICE[address] DR, = 1538) [facility] [address] 0: Fre[employer] System/Techni michael ID = [id number] for Pascual Trejo HEMOGLOBIN [id number] 06:51:00 Test Item Value Reference Range Interpretation Comments HEMOGLOBIN A1C (BEAKER) (test code = 5.7 % 4.3-6.1 368) [employer] ID - CHOPZBASIC METABOLIC [id number] 05:07:00 Test Item Value Reference Range Interpretation [...] S NOT APPLICABLE FOR DIALYSIS PATIEN TS. [employer] ID - CHOPZCBC W/PLT COUNT & AUTO [id number] 05:01:00 Test Item Value Reference Range Interpretation [...] PERCENT (BEAKER) (test code = 2801) POCT-GLUCOSE [id number] 07:49:00 Test Item Value Reference Range Interpretation Comments POC-GLUCOSE METER 90 mg/dL 70-110 : TESTED A T [facility] 6720 (BEAKER) (test code = [place], 1538) [address]: [employer] System/Techni michael ID = [id number] for SHAHRIAR SCHWARZ [id number] 07:11:00 Test Item Value Reference Range Interpretation Comments MAGNESIUM (BEAKER) 2.2 mg/dL 1.6-2.6 Specimen slightly (test code = 627) hemolyzed [employer] 07:11:00 Test Item Value Reference Range Interpretation Comments PHOSPHORUS (BEAKER) 3.8 mg/dL 2.3-4.7 Specimen slightly (test code = 604) hemolyzed [employer] System ID - DBBASIC METABOLIC [id number] 07:11:00 Test Item Value Reference Range Interpretation [...] S NOT APPLICABLE FOR DIALYSIS PATIEN TS. [employer] System ID - DBCBC W/PLT COUNT & AUTO [id number] 06:59:00 Test Item Value Reference Range Interpretation [...] PERCENT (BEAKER) (test code = 2801) BLOOD [id number] 04:00:00 Test Item Value Reference Range Interpretation Comments CULTURE (BEAKER) (test No growth in 5 days code = 1095) BLOOD [id number] 04:00:00 Test Item Value Reference Range Interpretation Comments CULTURE (BEAKER) (test No growth in 5 days code = 1095) POCT-GLUCOSE [id number] 21:20:00 Test Item Value Reference Range Interpretation Comments POC-GLUCOSE METER 171 mg/dL 70-110 H : Notified RN/MD: ([facility]) (test code = TESTED AT [place] [address] 1538) [facility], [address]: Fre[employer] System/Techni michael ID = [id number] for ANNAMARIE MARLOW POCT-GLUCOSE [id number] 17:48:00 Test Item Value Reference Range Interpretation Comments POC-GLUCOSE METER 149 mg/dL 70-110 H : TESTED A T [facility] 67 ([facility]) (test code = [facility] Herb [facility], 1538) [address]: [employer] System/Techni michael ID = [id number] for RO VIOLAERA, SHAHRIAR BODY FLUID CULTURE + GRAM [id number] 13:13:00 Test Item Value Reference Range Interpretation Comments CULTURE ([facility]) (test KLEBSIELLA A 2+ Kl ebsiella code [...] No organisms seen (BEAKER) (test code = 733204) POCT-GLUCOSE [id number] 12:08:00 Test Item Value Reference Range Interpretation Comments POC-GLUCOSE METER 191 mg/dL 70-110 H : TESTED A T [facility] 6720 (BEAKER) (test code = [place], 1538) [address]: [employer] System/Techni michael ID = [id number] for SHAHRIAR HANDLEY HEMOGLOBIN [id number] 08:36:00 Test Item Value Reference Range Interpretation Comments HEMOGLOBIN A1C (BEAKER) (test code = 6.4 % 4.3-6.1 H 368) POCT-GLUCOSE [id number] 08:18:00 Test Item Value Reference Range Interpretation Comments POC-GLUCOSE METER 151 mg/dL 70-110 H : TESTED A T [facility] 6720 (BEAKER) (test code = [facility] [place], 1538) [address]: [employer] System/Techni michael ID = [id number] for SHAHRIAR HANDLEY MRSA [id number] 08:18:00 Test Item Value Reference Range Interpretation Comments CULTURE (BEAKER) (test code No MRSA isolated = 1095) BASIC METABOLIC [id number] 06:41:00 Test Item Value Reference Range Interpretation [...] S NOT APPLICABLE FOR DIALYSIS PATIEN TS. [employer] System ID - ALBINO [id number] 06:41:00 Test Item Value Reference Range Interpretation Comments MAGNESIUM (BEAKER) (test code = 2.1 mg/dL 1.6-2.6 627) [employer] ID - ALBINO [id number] 06:41:00 Test Item Value Reference Range Interpretation Comments PHOSPHORUS (BEAKER) (test code = 3.2 mg/dL 2.3-4.7 604) [employer] ID - ALBINO MPOCT-GLUCOSE [id number] 21:12:00 Test Item Value Reference Range Interpretation Comments POC-GLUCOSE METER 135 mg/dL 70-110 H : TESTED A T [facility] 6720 (BEAKER) (test code = [facility] [place], 1538) [address]: [employer] System/Techni michael ID = [id number] for MIGUEL MARLOW POCT-GLUCOSE [id number] 17:00:00 Test Item Value Reference Range Interpretation Comments POC-GLUCOSE METER 140 mg/dL 70-110 H : TESTED A T [facility] 6720 (BEAKER) (test code = [facility], 1538) [address]: Fre[employer] System/Techni michael ID = [id number] for Ca vitt, Eminae POCT-GLUCOSE [id number] 12:23:00 Test Item Value Reference Range Interpretation Comments POC-GLUCOSE METER 189 mg/dL 70-110 H : [facility] T [facility] 6720 [facility] (test code = [facility], 1538) [address]: Fre[employer] System/Techni michael ID = [id number] for Ca vitt, Eminae POCT-GLUCOSE [id number] 07:46:00 Test Item Value Reference Range Interpretation Comments POC-GLUCOSE METER 107 mg/dL 70-110 : [facility] T [facility] 6720 [facility] (test code = [facility], 1538) [address]: Fre[employer] System/Techni michael ID = [id number] for Ca vitt, Eminae HIV-1 ANTIGEN WITH HIV-1/2 [id number] 06:57:00 Test Item Value Reference Range Interpretation Comments HIV-1 ANTIGEN WITH HIV 1\T\2 Nonreactive Nonreactive ANTIBODY (2) (BEAKER) (test code = 2586) [employer] ID - BSBASIC METABOLIC [id number] 06:46:00 Test Item Value Reference Range Interpretation [...] S NOT APPLICABLE FOR DIALYSIS PATIEN TS. [employer] 06:46:00 Test Item Value Reference Range Interpretation Comments MAGNESIUM (BEAKER) (test code = 2.1 mg/dL 1.6-2.6 627) [employer] 06:46:00 Test Item Value Reference Range Interpretation Comments PHOSPHORUS (BEAKER) (test code = 2.6 mg/dL 2.3-4.7 604) [employer] System ID - BSCBC W/PLT COUNT & AUTO [id number] 06:42:00 Test Item Value Reference Range Interpretation [...] PERCENT (BEAKER) (test code = 2801) POCT-GLUCOSE [id number] 21:42:00 Test Item Value Reference Range Interpretation Comments POC-GLUCOSE METER 118 mg/dL 70-110 H : TESTED A T [facility] 6720 (BEAKER) (test code = [facility], 153) [address]: Fre[employer] System/Techni michael ID = [id number] for Cr oss, Claysie POCT-GLUCOSE [id number] 17:32:00 Test Item Value Reference Range Interpretation Comments POC-GLUCOSE METER 111 mg/dL 70-110 H : TESTED A T [facility] 6720 (BEAKER) (test code = [facility], 153) [address]: Fre[employer] System/Techni michael ID = [id number] for An derson, Mary POCT-GLUCOSE [id number] 12:21:00 Test Item Value Reference Range Interpretation Comments POC-GLUCOSE METER 140 mg/dL 70-110 H : TESTED A T [facility] 6720 (BEAKER) (test code = [facility], 153) [address]: Fre[employer] System/Techni michael ID = [id number] for An derson, Mary CT, BRAIN, WITHOUT [id number] 10:01:00Unlisted Reason for Exam - Click Yes and Enter Reason Below->YesUnlisted Reason for Exam->f/u [facility] : 1945 Sex: [...] MDReport Verified Date/Time: 10/17/2020 10:01:47 Reading Location: [address] Neuro ReadingRoom BASIC METABOLIC [id number] 07:33:00 Test Item Value Reference Range Interpretation [...] S NOT APPLICABLE FOR DIALYSIS PATIEN TS. Freight Car [employer] ID - ALBINO [id number] 07:33:00 Test Item Value Reference Range Interpretation Comments MAGNESIUM (BEAKER) (test code = 2.3 mg/dL 1.6-2.6 627) [employer] ID - ALBINO [id number] 07:33:00 Test Item Value Reference Range Interpretation Comments PHOSPHORUS (BEAKER) (test code = 2.9 mg/dL 2.3-4.7 604) [employer] ID - ALBINO MHEPATIC FUNCTION [id number] 07:33:00 Test Item Value Reference Range Interpretation [...] (test code = 16 U/L 6-55 347) [employer] ID - ALBINO MCBC W/PLT COUNT & AUTO [id number] 07:26:00 Test Item Value Reference Range Interpretation [...] PERCENT (BEAKER) (test code = 2801) POCT-GLUCOSE [id number] 07:24:00 Test Item Value Reference Range Interpretation Comments POC-GLUCOSE METER 111 mg/dL 70-110 H : TESTED A T [facility] 6720 (MIRIAN) (test code = SHER Estevez [facility], 1538) 71739: Fre[employer] Car [employer]/Techni michael ID = [id number] for An Mary mratin POCT-GLUCOSE [id number] 21:58:00 Test Item Value Reference Range Interpretation Comments POC-GLUCOSE METER 177 mg/dL 70-110 H : TESTED A T [facility] 6720 (MIRIAN) (test code = SHER Estevez [facility], 1538) 07178: Fre[employer] Car [employer]/Techni michael ID = [id number] for Cr oss, [place] U/S, DRAINAGE, W/ CATH [id number] 18:56:00Reason for exam:->[facility] : 1945 Sex: MFINAL REPORT Percutaneous cholecystostomy tube placement. History: Acute cholecystitis Rubber Calender Helper: Leif Ojeda MD. Company Driver: None. Modality: Ultrasound Anesthesia: Lidocaine local infiltration. [...] were made with the Patient. They expressed understa nding and agreed to proceed. Informed written consent [...] gallbladder lumen. Following sequential dilatation, an 8 Venezuelan locking pigtail drainage catheter was advanced into the gallbladder lumen and the pigtail locked in position. The catheter was secured to skin with nonabsorbable suture. An aseptic dressing appl ied. The catheter was connected to a SOFÍA bulb. At the end of the procedure, an aseptic dressing applied. The patient tolerated the procedure well. After recovery, the patient was discharged from the department in stable condition. Complications: None immediate. Specimen: Sent to the laboratory Impression: Successful ultrasound-guided 8 Venezuelan percutaneous transhepatic cholecystostomy placement as described above. Thank you for the opportunity to assist in the care of your patient. Signed: Leif Ojedaepyoandy Verified Date/Time: 10/16/2020 18:56:16 Reading Location: [place] [address] Angio Body Reading Room HEPATIC FUNCTION [id number] 16:10:00 Test Item Value Reference Range Interpretation [...] (test code = 14 U/L 6-55 347) [employer] ID - DBOperator ID - DBCT, [id number] 11:13:00Unlisted Reason for Exam - Click Yes and Enter Reason Below->YesUnlisted Reason for Exam- >RUQ and epigastric pain with possible acute sylvia, eval for biliary pancreatitis and possible complications of pancreatitisWill this procedure require oral contrast?->No [facility] : 1945 Sex: [...] Wiggins Verified Date/Time: 10/16/2020 11:13:59 Reading Location: [address] Body Reading Room Electronicallysigned by: PIOTR WIGGINS MD on 10/16/2020 11:13 AMPOCT-GLUCOSE [id number] 08:22:00 Test Item Value Reference Range Interpretation Comments POC-GLUCOSE METER 129 mg/dL 70-110 H : TESTED A T [facility] 6720 (BEAKER) (test code = [place], 1538) 02[address]: Fre[employer] Car [employer]/Techni michael ID = [id number] for SHAHRIAR HANDLEY BASIC METABOLIC [id number] 07:09:00 Test Item Value Reference Range Interpretation [...] S NOT APPLICABLE FOR DIALYSIS PATIEN TS. Fre[employer] Delta 07:09:00 Test Item Value Reference Range Interpretation Comments MAGNESIUM (BEAKER) (test code = 2.1 mg/dL 1.6-2.6 627) Fre[employer] 07:09:00 Test Item Value Reference Range Interpretation Comments PHOSPHORUS (BEAKER) (test code = 2.1 mg/dL 2.3-4.7 L 604) Fre[employer] ID - EMERSONCBC W/PLT COUNT & AUTO [id number] 06:45:00 Test Item Value Reference Range Interpretation [...] (BEAKER) (test code = 2801) U/S, ABDOMINAL, [id number] 01:25:00Abdomen limited area? Add comment if clarification is needed.->Gall BladderReason for exam:->RUQ, epigastric pain; evaluate for biliary pancreatitis [facility] : 1945 Sex: [...] No biliary ductal dilatation. Signed: Aly Lopes [facility] Verified Date/Time: 10/16/2020 01:25:51 POCT-GLUCOSE [id number] 21:25:00 Test Item Value Reference Range Interpretation Comments POC-GLUCOSE METER 178 mg/dL 70-110 H : TESTED A T [facility] 6720 (BEAKER) (test code = [place], 1538) 10458: Fre[employer] Car [employer]/Techni michael ID = [id number] for DO JEANA AL POCT-GLUCOSE [id number] 16:48:00 Test Item Value Reference Range Interpretation Comments POC-GLUCOSE METER 208 mg/dL 70-110 H : TESTED A T [facility] 6720 (BEAKER) (test code = [place], 1538) 39018: Fre[employer] Car [employer]/Techni michael ID = [id number] for SHAHRIAR HANDLEY POCT-GLUCOSE [id number] 13:01:00 Test Item Value Reference Range Interpretation Comments POC-GLUCOSE METER 251 mg/dL 70-110 H : TESTED A T [facility] 6720 (BEAKER) (test code = [place], 1538) 836[address]: Freight Car [employer]/Techni michael ID = [id number] for SHAHRIAR HANDLEY SARS-COV2/RT-PCR ([facility])2020-10-15 12:38:00 Test Item Value Reference Range Interpretation Comments SARS-COV2/RT-PCR (test Negative Not Detected, Negative, code = 0403801) See external report for linked test SARS-COV-2 PERFORMING LAB [facility] (test code = 7593818) Negative result for this test determines that [...] of the Act.Fact Sheet for Healthcare Prov iders:https://www.Furnish.co.uk/sites/default/files/product/documents/Fact_Sheet_HC _Qtuwnlojq_Naxb_XPCR-QtF-3.pdfFact Sheet for Healthcare Patients:https://www.Furnish.co.uk/sites/default/files/product/docume nts/Ixdr_Gvrpc_Lweyahkj_Pxas_WXOX-KeV-1.pdfPerforming Laboratory:[facility], [place] [id number] 12:14:00 Test Item Value Reference Range Interpretation Comments LIPASE (BEAKER) (test code = 749) 10 U/L 8-78 [employer] ID - DBBLOOD GAS, [id number] 08:49:00 Test Item Value Reference Range Interpretation [...] (BEAKER) (test code = 1819) 21.0 POCT-GLUCOSE [id number] 08:06:00 Test Item Value Reference Range Interpretation Comments POC-GLUCOSE METER 214 mg/dL 70-110 H : TESTED A T [facility] 6720 (BEAKER) (test code = SHER Estevez [facility], 1538) 20619: Freight Car [employer]/Techni michael ID = [id number] for RO DGERS, JAMECA RAD, CHEST, 1 VIEW, NON [id number] 07:03:00Reason for exam:->FeverShould this be performed at the bedside?->Yes [facility] : 1945 Sex: [...] to document resolution. Pulmonary venous congestion. Ca d: Margie Foster MDRephca midwest division Verified Date/Time: 10/15/2020 07:03:46 Reading Location: [facility] B1 C013X Ortho Consult Reading Room LACTIC ACID, [id number] 06:11:00 Test Item Value Reference Range Interpretation Comments LACTATE BLOOD VENOUS (2) (BEAKER) 0.90 mmol/L 0.50-2.20 (test code = 2872) [employer] ID - DBCBC W/PLT COUNT & AUTO [id number] 06:01:00 Test Item Value Reference Range Interpretation [...] PERCENT (BEAKER) (test code = 2801) POCT-GLUCOSE [id number] 00:46:00 Test Item Value Reference Range Interpretation Comments POC-GLUCOSE METER 150 mg/dL 70-110 H : TESTED A T [facility] 6720 (BEAKER) (test code = [facility], 153) 55455: Fre[employer] Car [employer]/Techni michael ID = [id number] for JENNIFER CRAFT URINALYSIS W/ [id number] 00:42:00 Test Item Value Reference Range Interpretation [...] = 1521) SOURCE(BEAKER) (test code = 2795) [employer] ID - [auto]Fre[employer] ID - techPOCT-GLUCOSE [id number] 16:26:00 Test Item Value Reference Range Interpretation Comments POC-GLUCOSE METER 121 mg/dL 70-110 H : TESTED A T [facility] 6720 (BEAKER) (test code = [facility], 153) 51882: Fre[employer] Car [employer]/Techni michael ID = [id number] for Magan grant (pca2)Zoila HIGH SENSITIVITY TROPONIN [id number] 11:57:00 Test Item Value Reference Range Interpretation Comments HIGH SENSITIVITY 29 pg/ml See_Comment [Automated message] TROPONIN I (test code = The system which 9572446) generated this result transmitted ref erence range: <=35. Th e reference range was not used to int erpret this result as normal/abnormal . Fre[employer] ID - ALBINO Pearce EXTRUSION PRESS OPERATOR STAT High Sensitivity Troponin-I results should be used in conjunction with other diagnostic information such as ECG, clinical observations and information, and patient symptoms to aid in the diagnosis of IA.POCT-GLUCOSE [id number] 11:04:00 Test Item Value Reference Range Interpretation Comments POC-GLUCOSE METER 137 mg/dL 70-110 H : TESTED A T [facility] 6720 (BEAKER) (test code = SHER Estevez [facility], 1538) 47403: Fre[employer] Car [employer]/Techni michael ID = [id number] for Magan grant (pca2)Zoila RAPID DRUG SCREEN, [id number] 10:57:00 Test Item Value Reference Range Interpretation [...] situations. Chain of custody not maintained. Some aqyu-ipd-troztvn medications, as well as adulterants, may cause inaccurate results. Clinical correlation should be applied. A more comprehensive drug screen or confirmation of a detected drug may be performed upon request.[employer] ID - ALBINO MOperator ID - [auto]CT, BRAIN, WITHOUT [id number] 10:42:00Unlisted Reason for Exam - Click Yes and Enter Reason Below->YesUnlisted Reason for Exam->R SDH frontoparietal convexity. [facility] 1945 Sex: MFINAL [...] ed message] code = 370) The system [employer] generated this result transmitted ref erence range: [...] S NOT APPLICABLE FOR DIALYSIS PATIEN TS. Fre[employer] ID - ALBINO [id number] 07:47:00 Test Item Value Reference Range Interpretation Comments MAGNESIUM (BEAKER) (test code = 2.2 mg/dL 1.6-2.6 627) Fre[employer] ID - ALBINO [id number] 07:47:00 Test Item Value Reference Range Interpretation Comments PHOSPHORUS (BEAKER) (test code = 2.3 mg/dL 2.3-4.7 604) Fre[employer] ID - ALBINO EPATIC FUNCTION [id number] 07:47:00 Test Item Value Reference Range Interpretation [...] (test code = 29 U/L 6-55 347) Fre[employer] ID - ALBINO VARMAIGH SENSITIVITY TROPONIN [id number] 07:30:00 Test Item Value Reference Range Interpretation Comments HIGH SENSITIVITY 27 pg/ml See_Comment [Automated message] TROPONIN I (test code = The system which [id number]) generated this result transmitted ref erence range: <=35. Th e reference range was not used to int erpret this result as normal/abnormal . Fre[employer] ID - ALBINO Clarke EXTRUSION PRESS OPERATOR STAT High Sensitivity Troponin-I results should be used in conjunction with other diagnostic information such as ECG, clinical observations and information, and patient symptoms to aid in the diagnosis of IA.[id number] 07:13:00 Test Item Value Reference Range Interpretation Comments PARTIAL THROMBOPLASTIN TIME 32.0 seconds 22.5-36.0 (BEAKER) (test code = 760) [id number] 07:12:00 Test Item Value Reference Range Interpretation Comments FIBRINOGEN LEVEL (BEAKER) (test 470 mg/dl 225-434 H code = 658) CBC W/PLT COUNT & AUTO [id number] 07:11:00 Test Item Value Reference Range Interpretation [...] PERCENT (BEAKER) (test code = 2801) POCT-GLUCOSE [id number] 07:02:00 Test Item Value Reference Range Interpretation Comments POC-GLUCOSE METER 151 mg/dL 70-110 H : TESTED A T [facility] 6720 (BEAKER) (test code = [facility], 1538) 88561: Freight Car [employer]/Techni michael ID = [id number] for JENNIFER CRAFT POCT-GLUCOSE [id number] 06:48:00 Test Item Value Reference Range Interpretation Comments POC-GLUCOSE METER 156 mg/dL 70-110 H : TESTED A T [facility] 6720 (BEAKER) (test code = [facility], 1538) 39523: Freight Car [employer]/Techni michael ID = [id number] for KLEVER CAMARA VITAMIN D, [id number] 20:23:00 Test Item Value Reference Range Interpretation Comments VITAMIN D 25-OH (BEAKER) (test 51.9 ng/mL 6.6-49.9 H code = 2764) Effective 02/12/2017: Reference Range ChangeNew: 6.6-49.9 ng/mL Previous: 13.0- 47.8 ng/mLRecommendedVitamin D Target Range: 30.0-40.0 ng/mLOperator ID - DB [id number] 19:35:00 Test Item Value Reference Range Interpretation Comments FERRITIN (BEAKER) (test code = 135.65 ng/mL 5.00-275.00 361) [employer] ID - BRANDON CVITAMIN B12 AND [id number] 19:35:00 Test Item Value Reference Range Interpretation Comments VITAMIN B12 1504 pg/mL 213-816 H (BEAKER) (test code = 774) FOLATE (BEAKER) 19.30 ng/mL See_Comment [Automated message] (test code = 362) The system which generated this result transmitted ref erence range: >=7.00. The reference range was not used to interpr et this result as normal/abnormal . Fre[employer] ID - EDASIOperator ID - BRANDON CPOCT-GLUCOSE [id number] 12:22:00 Test Item Value Reference Range Interpretation Comments POC-GLUCOSE METER 181 mg/dL 70-110 H : TESTED A T [facility] 6720 (BEAKER) (test code [facility], = 1538) 00248: Freight Car [employer]/Techni michael ID = [id number] for TSEG GATALIA OmerA POCT-GLUCOSE [id number] 07:53:00 Test Item Value Reference Range Interpretation Comments POC-GLUCOSE METER 119 mg/dL 70-110 H : TESTED A T [facility] 6720 (BEAKER) (test code [facility], = 1538) 93930: Freight Car [employer] System/Techni michael ID = [id number] for TSEG GAI, ANAEREDA BASIC METABOLIC [id number] 07:20:00 Test Item Value Reference Range Interpretation [...] S NOT APPLICABLE FOR DIALYSIS PATIEN TS. Fre[employer] Car [employer]er Delta 07:20:00 Test Item Value Reference Range Interpretation Comments MAGNESIUM (BEAKER) (test code = 2.2 mg/dL 1.6-2.6 627) Fre[employer] Car [employer] Delta 07:20:00 Test Item Value Reference Range Interpretation Comments PHOSPHORUS (BEAKER) (test code = 4.0 mg/dL 2.3-4.7 604) Fre[employer] ID - EDASIIRON, TIBC, % SAT. (WITHOUT FERRITIN)2020-07-07 06:52:00 Test Item Value Reference Range Interpretation Comments IRON (BEAKER) (test code = 547) 75.0 ug/dL 40.0-160.0 TOTAL IRON BINDING CAPACITY 261 ug/dL 250-450 (BEAKER) (test code = 769) IRON % SATURATION (2) (BEAKER) 29 % 20-55 (test code = 2590) [employer] ID - EDASICBC W/PLT COUNT & AUTO [id number] 06:47:00 Test Item Value Reference Range Interpretation [...] PERCENT (BEAKER) (test code = 2801) POCT-GLUCOSE [id number] 11:33:00 Test Item Value Reference Range Interpretation Comments POC-GLUCOSE METER 135 mg/dL 70-110 H : TESTED A T [facility] 6720 (BEAKER) (test code = SHER Herb [facility], 1538) 44084: Freight Car [employer] System/Techni michael ID = [id number] for [facility] Dolly CT, BRAIN, WITHOUT [id number] 09:48:00Unlisted Reason for Exam - Click Yes and Enter Reason Below->YesUnlisted Reason for Exam->SDH [facility] : 1945 Sex: MFINAL REPORT CT Head without contrast CLINICAL HISTORY: Unlisted Reason for ExamSDH TECHNIQUE: Contiguous axial CT images through the head without contrast. This exam was performed according to the departmental dose optimization program which includes automated exposure control, adjustment of the mA and/or kV according to the patient size, and/or use of an iterative reconstructiontechnique. COMPARISON: 07/03/2020 FINDINGS: There are two new interval right calvarial fatemeh holes and placement of a right-sided extra-axial drainage catheter. The right cerebral convexity subdural hematoma has slightly decreased in size. The left cerebral convexity subdural hematoma is unchanged. Thereis new bifrontal pneumocephalus. There is decreased overall mass effect with decreased leftward midline shift of the septum pellucidum. There is no hydrocephalus. There is atherosclerotic calcificationof the intracranial circulation. IMPRESSION: Since 07/03/2020, decreased size of the right-sided subdural hematoma status post drainage, and unchanged size of the left-sided subdural hematoma. Overall mass effect and leftward midline shift has decreased. Signed: Case Abramsort Verified Date/Time: 07/06/2020 09:48:25 Reading Location: [address] Neuro Reading Room POCT-GLUCOSE [id number] 06:37:00 Test Item Value Reference Range Interpretation Comments POC-GLUCOSE METER 137 mg/dL 70-110 H : TESTED A T [facility] 6720 (BEAKER) (test code = MIKHAILEL Estevez [facility], 1538) 48659: Fre[employer]/Techni michael ID = [id number] for ELYSE MARLOW BASIC METABOLIC [id number] 04:16:00 Test Item Value Reference Range Interpretation [...] S NOT APPLICABLE FOR DIALYSIS PATIEN TS. Fre[employer] ID - ALBINO [id number] 04:16:00 Test Item Value Reference Range Interpretation Comments MAGNESIUM (BEAKER) (test code = 2.0 mg/dL 1.6-2.6 627) [employer] ID - ALBINO [id number] 04:16:00 Test Item Value Reference Range Interpretation Comments PHOSPHORUS (BEAKER) (test code = 2.6 mg/dL 2.3-4.7 604) [employer] ID - ALBINO MCBC W/PLT COUNT & AUTO [id number] 03:46:00 Test Item Value Reference Range Interpretation [...] PERCENT (BEAKER) (test code = 2801) POCT-GLUCOSE [id number] 00:34:00 Test Item Value Reference Range Interpretation Comments POC-GLUCOSE METER 115 mg/dL 70-110 H : TESTED A T [facility] 6720 (BEAKER) (test code = [facility], 153) 00143: Fre[employer] Car [employer] System/Techni michael ID = [id number] for Maryan Mcfarlane POCT-GLUCOSE [id number] 17:25:00 Test Item Value Reference Range Interpretation Comments POC-GLUCOSE METER 111 mg/dL 70-110 H : TESTED A T [facility] 6720 (BEAKER) (test code = [facility], 1538) 66876: Freight Car [employer] System/Techni michael ID = [id number] for [facility] [place] nguyen POCT-GLUCOSE [id number] 12:32:00 Test Item Value Reference Range Interpretation Comments POC-GLUCOSE METER 157 mg/dL 70-110 H : Notified RN/MD: (BEAKER) (test code = TESTED AT [facility] 0846 3835) [facility], [address]: Freight Car [employer] System/Techni michael ID = [id number] for Dolly Lopez TROPONIN [id number] 07:49:00 Test Item Value Reference Range Interpretation [...] failure, acidosis, acute neurological disease, and persistent tachyarrhythmia.[employer] ID - ROSIANGBASIC METABOLIC [id number] 03:30:00 Test Item Value Reference Range Interpretation [...] S NOT APPLICABLE FOR DIALYSIS PATIEN TS. Fre[employer] ID - ALBINO [id number] 03:30:00 Test Item Value Reference Range Interpretation Comments MAGNESIUM (BEAKER) (test code = 2.1 mg/dL 1.6-2.6 627) [employer] ID - ALBINO [id number] 03:30:00 Test Item Value Reference Range Interpretation Comments PHOSPHORUS (BEAKER) (test code = 2.3 mg/dL 2.3-4.7 604) Fre[employer] ID - ALBINO MCBC W/PLT COUNT & AUTO [id number] 03:20:00 Test Item Value Reference Range Interpretation [...] PERCENT (BEAKER) (test code = 2801) POCT-GLUCOSE [id number] 00:09:00 Test Item Value Reference Range Interpretation Comments POC-GLUCOSE METER 108 mg/dL 70-110 : TESTED A T [facility] 6720 (BEAKER) (test code = [employer] [place], 1538) 10807: Freight Car [employer] System/Techni michael ID = [id number] for ELYSE MARLOW POCT-GLUCOSE [id number] 17:45:00 Test Item Value Reference Range Interpretation Comments POC-GLUCOSE METER 108 mg/dL 70-110 : TESTED A T [facility] 6720 (BEAKER) (test code = [employer] [place], 1538) 34355: Freight Car [employer] System/Techni michael ID = [id number] for ISMAEL GRAMAJO BASIC METABOLIC [id number] 11:59:00 Test Item Value Reference Range Interpretation [...] S NOT APPLICABLE FOR DIALYSIS PATIEN TS. Fre[employer] Car [employer] ID - SMPOCT-GLUCOSE [id number] 11:46:00 Test Item Value Reference Range Interpretation Comments POC-GLUCOSE METER 149 mg/dL 70-110 H : TESTED A T [facility] 6720 (BEAKER) (test code = [facility], 1538) 89587: Freight Car [employer] System/Techni michael ID = [id number] for Wi lliams, Irene HEMOGLOBIN AND [id number] 11:37:00 Test Item Value Reference Range Interpretation Comments HEMOGLOBIN (BEAKER) (test code = 9.2 GM/DL 13.7-17.5 L 410) HEMATOCRIT (BEAKER) (test code = 29.3 % 40.1-51.0 L 411) [employer] KINASE (CK)2020-07-04 10:38:00 Test Item Value Reference Range Interpretation Comments CREATINE KINASE TOTAL (BEAKER) (test 71 U/L 29-200 code = 380) Fre[employer] ID - ALBINO MPOCT-GLUCOSE [id number] 08:00:00 Test Item Value Reference Range Interpretation Comments POC-GLUCOSE METER 105 mg/dL 70-110 : TESTED A T [facility] 6720 (BEAKER) (test code = [facility] [place], 1538) 14777: Freight Car [employer] System/Techni michael ID = [id number] for ISMAEL GRAMAJO BASIC METABOLIC [id number] 03:45:00 Test Item Value Reference Range Interpretation [...] S NOT APPLICABLE FOR DIALYSIS PATIEN TS. Fre[employer] Car [employer] Delta 03:45:00 Test Item Value Reference Range Interpretation Comments MAGNESIUM (BEAKER) (test code = 2.1 mg/dL 1.6-2.6 627) Fre[employer] 03:45:00 Test Item Value Reference Range Interpretation Comments PHOSPHORUS (BEAKER) (test code = 2.9 mg/dL 2.3-4.7 604) Fre[employer] System ID - SMPROTHROMBIN [id number] 03:37:00 Test Item Value Reference Range Interpretation Comments PROTIME (BEAKER) 14.7 seconds 11.9-14.2 H (test code = 759) INR (BEAKER) (test 1.18 See_Comment [Automat ed message] code = 370) The system [employer] generated this result transmitted ref erence range: <=5.90. The reference range was not used to int erpret this result as normal/abnormal . Effective 09/30/2018: PT Reference Range ChangeNew: 11.9-14.2 Previous: 11.7- 14.7RECOMMENDED COUMADIN/WARFARIN INR THERAPY RANGESSTANDARD DOSE: 2.0-3.0 Includes: PROPHYLAXIS for venous thrombosis, systemic embolization; TREATMENT for venous thrombosis and/or pulmonary embolus.HIGH RISK: Target INR is 2.5-3.5 for patients wiht mechanical heart valves.[id number] 03:37:00 Test Item Value Reference Range Interpretation Comments PARTIAL THROMBOPLASTIN TIME 31.1 seconds 22.5-36.0 (BEAKER) (test code = 760) CBC W/PLT COUNT & AUTO [id number] 03:34:00 Test Item Value Reference Range Interpretation [...] (BEAKER) (test code = 2801) HEMOGLOBIN AND [id number] 21:51:00 Test Item Value Reference Range Interpretation Comments HEMOGLOBIN (BEAKER) (test code = 9.1 GM/DL 13.7-17.5 L 410) HEMATOCRIT (BEAKER) (test code = 28.6 % 40.1-51.0 L 411) [employer] [id number] 21:44:00 Test Item Value Reference Range Interpretation Comments POC-GLUCOSE METER 158 mg/dL 70-110 H : TESTED A T [facility] 6720 (BEAKER) (test code = SHER Estevez [facility], 1538) 12482: Freight Car [employer] System/Techni michael ID = [id number] for ELYSE MARLOW POCT-GLUCOSE [id number] 16:56:00 Test Item Value Reference Range Interpretation Comments POC-GLUCOSE METER 144 mg/dL 70-110 H : Notified RN/MD: (RISAAKER) (test code = TESTED AT [facility] 6720 1538) [facility] [facility] [id number]: [employer]/Techni michael ID = [id number] for ISMAEL GRAMAJO THROMBOELASTOGRAPH (TEG)2020-07-03 13:35:00 Test [...] 0.0-5.0 code = 1414) CT, BRAIN, WITHOUT [id number] 08:29:00Unlisted Reason for Exam - Click Yes and Enter Reason Below->No [facility] : 1945 Sex: [...] at the time of dictation. Signed: Case Abrams MDRort Verified Date/Time: 07/03/2020 08:29:18 Reading Location: [facility] C0V Neuro Reading Room HEMOGLOBIN [id number] 08:21:00 Test Item Value Reference Range Interpretation Comments HEMOGLOBIN A1C (BEAKER) (test code = 5.7 % 4.3-6.1 368) [id number] 07:19:00 Test Item Value Reference Range Interpretation Comments MAGNESIUM (BEAKER) 2.3 mg/dL 1.6-2.6 Specimen slightly (test code = 627) hemolyzed [employer] ID - ALBINO [id number] 07:19:00 Test Item Value Reference Range Interpretation Comments PHOSPHORUS (BEAKER) 2.2 mg/dL 2.3-4.7 L Specimen slightly (test code = 604) hemolyzed [employer] ID - ALBINO MBASIC METABOLIC [id number] 05:56:00 Test Item Value Reference Range Interpretation [...] S NOT APPLICABLE FOR DIALYSIS PATIEN TS. [employer] ID - ALBINO MCBC W/PLT COUNT & AUTO [id number] 05:06:00 Test Item Value Reference Range Interpretation [...] (test code = 2801) TSH/FREE T4 IF [id number] 04:35:00 Test Item Value Reference Range Interpretation Comments THYROID STIMULATING HORMONE 0.793 uIU/mL 0.350-4.940 (BEAKER) (test code = 772) [employer] ID - ALBINO MBASIC METABOLIC [id number] 04:21:00 Test Item Value Reference Range Interpretation [...] S NOT APPLICABLE FOR DIALYSIS PATIEN TS. [employer] ID - ALBINO [id number] 04:19:00 Test Item Value Reference Range Interpretation Comments MAGNESIUM (BEAKER) (test code = 1.4 mg/dL 1.6-2.6 L 627) [employer] ID - ALBINO MLIPID [id number] 04:19:00 Test Item Value Reference Range Interpretation [...] Borderline 130-159 High 160-189 Very High >=190 [employer] ID - ALBINO [id number] 04:19:00 Test Item Value Reference Range Interpretation Comments LIPASE (BEAKER) (test code = 749) 5 U/L 8-78 L [employer] ID - ALBINO MSARS-COV2/RT-PCR ([facility])2020-07-03 01:30:00 Test Item Value Reference Range Interpretation Comments SARS-COV2/RT-PCR (test code Negative Not Detected, Negative, = 7316021) See external report for linked test SARS-COV-[address] [facility] (test code = 0947123) Negative results do not preclude SARS-CoV-2 infection [...] of the Act.Fact Sheet for Healthcare Pro viders:https://www.[employer]/Documents/Xpert%20Xpress%20SARS%20CoV-2/Fact%20Sh eets/3023802%61AGCE-ULK-4%20HEALTHCARE%20PROVIDERS%20FACT%20SHEET.pdfFact Sheet for Healthcare Patients:https://www.[employer]/Documents/Xpert%20Xpress%20SARS%20CoV-2/Fact%20Sheets/3023801%20SARS-COV -2%20PATIENT%20FACT%20SHEET.pdfPerforming Laboratory:[facility], [place] [address]JRR, CHEST, 1 VIEW, NON [id number] 23:20:00Reason for exam:->preopShould this be performed at the bedside?->YesHAYWARD [facility]: [facility] : 1945 Sex: MFINAL [...] pg/mL 0-100 H (test code = 700) [employer] ID - DBBASIC METABOLIC [id number] 22:15:00 Test Item Value Reference Range Interpretation [...] S NOT APPLICABLE FOR DIALYSIS PATIEN TS. [employer] 22:12:00 Test Item Value Reference Range Interpretation Comments FIBRINOGEN LEVEL (BEAKER) (test 286 mg/dl 225-434 code = 658) [id number] 22:12:00 Test Item Value Reference Range Interpretation Comments PARTIAL THROMBOPLASTIN TIME 32.6 seconds 22.5-36.0 (BEAKER) (test code = 760) PROTHROMBIN TIME/[id number] 22:11:00 Test Item Value Reference Range Interpretation Comments PROTIME (BEAKER) 14.8 seconds 11.9-14.2 H (test code = 759) INR (BEAKER) (test 1.20 See_Comment [Automat ed message] code = 370) The system [employer] generated this result transmitted ref erence range: [...] mechanical heart valves.CBC W/PLT COUNT & AUTO [id number] 22:03:00 Test Item Value Reference Range Interpretation [...] PERCENT (BEAKER) (test code = 2801) TROPONIN [id number] 21:54:00 Test Item Value Reference Range Interpretation [...] failure, acidosis, acute neurological disease, and persistent tachyarrhythmia.[employer] ID - DBCOMPREHENSIVE METABOLIC [id number] 21:48:00 Test Item Value Reference Range Interpretation [...] S NOT APPLICABLE FOR DIALYSIS PATIEN TS. [employer] 21:48:00 Test Item Value Reference Range Interpretation Comments MAGNESIUM (BEAKER) (test code = 2.1 mg/dL 1.6-2.6 627) [employer] 21:48:00 Test Item Value Reference Range Interpretation Comments PHOSPHORUS (BEAKER) (test code = 2.7 mg/dL 2.3-4.7 604) [employer] ID - DBCBC W/PLT COUNT & AUTO [id number] 21:32:00 Test Item Value Reference Range Interpretation [...]
[2022-09-22] MEDS ORDERED: NA CHLORIDE 0.9% 1,000 ML ONE (19:14)
[2022-09-22 19:21] LABS: Hematocrit 21.2 % (39.6-49.0); MCV 89.6 fL (80-100); MPV 8.2 fL (7.6-11.3); RBC Red Blood Cell Count 2.37 M/uL (4.33-5.43)
[2022-09-22 19:25] LABS: Protime INR 1.15
[2022-09-22 19:44] LABS: Anisocytosis 1+; Blood Morphology Comment NOTED (NOT SEEN); Hypochromasia 1+; Platelet Estimate DECR
[2022-09-22 19:48] LABS: Bilirubin Direct 0.3 mg/dL (0-0.2); Bilirubin Indirect, Calculated 0.5 mg/dL (0.2-0.8); Bilirubin Total 0.8 mg/dL (0.2-1.0); Magnesium 2.1 mg/dL (1.6-2.4); Potassium 3.5 mEq/L (3.5-5.1); Protein, Total 6.8 g/dL (6.4-8.2); Thyroid Stimulating Hormone 2.3 uIU/mL (0.358-3.740)
[2022-09-22 19:53] LABS: Troponin High Sensitivity 632.6 pg/mL (<58.9)
[2022-09-22] MEDS ORDERED: FOLIC ACID 5 MG/ML VIAL ONE (19:56)
--- NOTE | 2022-09-22 20:14 | RAD REPORT ---
EXAM DESCRIPTION: RAD - Chest Single View - 09/22/2022 8:05 pm CLINICAL HISTORY: SOB Chest pain. COMPARISON: Chest Single View dated 07/08/2022; Chest Single View dated 11/11/2020; Chest Single View d ated 07/02/2020; Chest Single View dated 05/13/2019; Thorax Wo Con dated 07/08/2022 FINDINGS: Portable technique limits examination quality. Pulmonary interstitial markings are prominent bilaterally. This could be related to pulmonary edema o r interstitial infection. Heart size is mildly prominent. No displaced fractures. IMPRESSION: Mild CHF is possible.
--- NOTE | 2022-09-22 20:39 | RAD REPORT ---
EXAM DESCRIPTION: CT - Chest Abd Pelvis Wo Con - 09/22/2022 8:26 pm CLINICAL HISTORY: Chest and abdomen pain. MALAISE COMPARISON: <Comparisons> TECHNIQUE: Limited noncontrast study was performed. All CT scans are performed using dose optimization technique as appropriate and may include automated exposure control or mA/KV adjustment according to patient size. FINDINGS: Ill-defined infiltrate is seen posterior left upper lobe and both posterior lower lobes.Sp iculated lesion in the posterior left upper lobe measuring 16 mm (image 23/137).Small bilateral pleur al effusions.Enlarged lymph nodes are seen in the mediastinum at, largest measuring 2.8 cm in the AP window. The liver, spleen, pancreas, adrenal glands and kidneys are within normal limits. Cholelithiasis. No bowel obstruction, free air, free fluid or abscess. Mild stool is retained throughout the colon. N ormal appendix. No pathologic lymphadenopathy in the abdomen or pelvis. No worrisome osseous finding. IMPRESSION: Poorly defined spiculated lesion measuring 16 mm in the posterior left upper lobe.Given the adenopathy in the mediastinum, further workup is warranted. Recommend follow-up PET-CT for furthe r evaluation. Ill-defined opacities in both lung bases with small pleural effusion probably atelectasis or infiltra te. Cholelithiasis.
[2022-09-22] MEDS ORDERED: CEFTRIAXONE 1000 MG/VIAL ONE (21:10)
[2022-09-22] MEDS ORDERED: NA CHLORIDE 0.9% 50 ML ONE (21:10)
--- NOTE | 2022-09-22 21:28 | ER ---
Nurse's Notes [facility] Name: Farhat Burch Sr Age: 77 yrs Sex: Male : 1945 Arrival Date: 09/22/2022 Time: 18:17 Bed 19 Private MD: Diagnosis: Subsequent non-ST elevation (NSTEMI) myocardial infarction;Dehydration;Acute kidney injury;Unspecified bacterial pneumonia;Spiculated lung mass;Anemia in other chronic diseases classified elsewhere Presentation: 09/22 18:32 Chief complaint: Patient states: per patient he was having trouble standing, very iw exhausted and dizzy. brothers ex brought him in to er. Coronavirus screen: At this time, the client does not indicate any symptoms associated with coronavirus-19. Onset of symptoms was September 22, 2022. 18:32 Method Of Arrival: Wheelchair iw 18:32 Acuity: JESSE 2 iw 18:32 Ebola Screen: Patient negative for fever greater than or equal to 101.5 degrees iw Fahrenheit, and additional compatible Ebola Virus Disease symptoms Patient denies exposure to infectious person. Patient denies travel to an Ebola-affected area in the 21 days before illness onset. No symptoms or risks identified at this time. 18:44 Initial Sepsis Screen: Does the patient meet any 2 criteria? No. Patient's initial iw sepsis screen is negative. Does the patient have a suspected source of infection? No. Patient's initial sepsis screen is negative. Risk Assessment: Do you want to hurt yourself or someone else? Patient reports no desire to harm self or others. Historical: - Allergies: 18:44 No Known Allergies; iw - PMHx: 18:44 Anemia; Anxiety; neely esophagus; COPD; Depression; Diabetes - IDDM; Hyperlipidemia; iw Hypertension; resolved; Angina pectoris; 23:34 HIV positive; ha1 - Immunization history:: Adult Immunizations unknown. - Social history:: Smoking status: Patient/guardian denies using tobacco. Screenin:10 [facility] ED Fall Risk Assessment (Adult) History of falling in the last 3 months, ha1 including since admission Confusion or Disorientation No (0 pts) Intoxicated or Sedated No (0 pts) Impaired Gait Yes (1 pt) Mobility Assist Device Used Yes (1 pt) Altered Elimination No (0 pt) Score/Fall Risk Level 3 or more points = High Risk Oriented to surroundings, Maintained a safe environment, Educated pt \T\ family on fall prevention, incl call for assistance when getting out of bed, Assessed \T\ reinforced patient's understanding of fall precautions, Hourly rounding (assess needs \T\ fall precautionary measures) done. 21:38 Abuse screen: Denies threats or abuse. Denies injuries from another. Nutritional ha1 screening: No deficits noted. Tuberculosis screening: No symptoms or risk factors identified. Assessment: 19:10 General: Appears comfortable, Behavior is calm, cooperative. Pain: Denies pain. Neuro: ha1 Level of Consciousness is awake, alert, obeys commands, Oriented to person, place, time, situation, Reports dizziness. Cardiovascular: Patient's skin is warm and dry. Respiratory: Airway is patent Respiratory effort is even, unlabored, Respiratory pattern is regular, symmetrical. GI: Abdomen is flat, non-distended. : Urine is cloudy. Derm: Skin is fragile, Skin is normal. Musculoskeletal: Circulation, motion, and sensation intact. 20:20 Reassessment: Patient and/or family updated on plan of care and expected duration. Pain ha1 level reassessed. Patient is alert, oriented x 3, equal unlabored respirations, skin warm/dry/pink. Patient denies pain at this time. 21:20 Reassessment: Patient and/or family updated on plan of care and expected duration. Pain ha1 level reassessed. Patient is alert, oriented x 3, equal unlabored respirations, skin warm/dry/pink. 22:20 Reassessment: Patient and/or family updated on plan of care and expected duration. Pain ha1 level reassessed. Patient is alert, oriented x 3, equal unlabored respirations, skin warm/dry/pink. 23:05 Reassessment: Patient and/or family updated on plan of care and expected duration. Pain ha1 level reassessed. Patient is alert, oriented x 3, equal unlabored respirations, skin warm/dry/pink. awaiting on nurse to receive report. 23:13 Reassessment: report given to NAYANA Leyva. ha1 09/23 00:00 Reassessment: Patient and/or family updated on plan of care and expected duration. Pain ha1 level reassessed. Patient is alert, oriented x 3, equal unlabored respirations, skin warm/dry/pink. 01:00 Reassessment: Patient and/or family updated on plan of care and expected duration. Pain ha1 level reassessed. Patient is alert, oriented x 3, equal unlabored respirations, skin warm/dry/pink. Notified care provider Maryse about elevated temperature. Vital Signs: 09/22 18:32 BP 72 / 47; Pulse 100; Resp 16; Temp 98; Pulse Ox 87% on R/A; iw 19:45 BP 112 / 55; Pulse 79; Resp 18 S; Pulse Ox 94% on 2 lpm NC; ha1 20:35 BP 110 / 55; Pulse 75; Resp 16 S; Pulse Ox 98% on 2 lpm NC; ha1 21:30 BP 113 / 58; Pulse 77; Resp 19 S; Pulse Ox 99% on 2 lpm NC; ha1 22:38 BP 121 / 57; Pulse 77; Resp 20; Temp 98.3; Pulse Ox 100% on R/A; ha1 23:27 BP 125 / 60; Pulse 76; Resp 18 S; Temp 99; Pulse Ox 100% on 2 lpm NC; ha1 09/23 00:28 BP 122 / 49; Pulse 76; Resp 18 S; Temp 98.1(O); Pulse Ox 100% on R/A; ha1 00:58 BP 121 / 50; Pulse 70; Resp 20 S; Temp 99.4(O); Pulse Ox 100% on 2 lpm NC; ha1 ED Course: 09/22 18:19 Patient arrived in ED. ts1 18:43 [facility]ita Messina [facility]NP-C [facility]. snw 18:43 Anthony Haile MD is Attending Physician. snw 18:43 Triage completed. iw 18:45 Arm band placed on. iw 19:09 Lactate w/ 2H reflex if indic. Sent. mm9 19:09 Lipase Sent. mm9 19:09 AMMONIA Sent. mm9 19:09 TSH Sent. mm9 19:10 TS Sent. mm9 19:10 Basic Metabolic Panel Sent. mm9 19:10 CBC with Diff Sent. mm9 19:10 Hepatic Function Sent. mm9 19:10 Magnesium Sent. mm9 19:10 Protime (+inr) Sent. mm9 19:10 Ptt, Activated Sent. mm9 19:10 Troponin High Sensitivity Sent. mm9 19:10 Initial lab(s) drawn, by la, sent to lab. Inserted saline lock: 20 gauge in left mm9 forearm, using aseptic technique. Blood collected. 19:11 Patient has correct armband on for positive identification. Bed in low position. Call mm9 light in reach. Side rails up X2. Warm blanket given. Client placed on continuous cardiac and pulse oximetry monitoring. NIBP monitoring applied. hog raiser on. Pulse ox on. NIBP on. 19:43 Joanna Gurrola RN is Primary Nurse. ha1 20:00 Inserted saline lock: 20 gauge in right forearm, using aseptic technique. bc6 20:04 Notified ED physician of a critical lab result(s). troponin of 632, notified Benita YOUNG. rv 20:07 Chest Single View XRAY In Process Unspecified. EDMS 20:25 Blood Culture Adult (2) Sent. bc6 20:27 CT Chest Abdomen Pelvis W/O Contrast In Process Unspecified. EDMS 21:27 Phuc García MD is Hospitalizing Provider. [facility] 09/23 01:20 No provider procedures requiring assistance completed. ha1 01:20 Patient admitted, IV remains in place. ha1 01:28 Blood Culture Adult (2) Sent. ha1 Administered Medications: 09/22 19:12 Drug: NS 0.9% IV 1000 ml Route: IV; Rate: 125 ml/hr; Site: left antecubital; vg1 19:50 Drug: foLIC Acid IVPB 1 mg Route: IVPB; Site: left forearm; ha1 20:15 Follow up: Response: No adverse reaction ha1 20:50 Drug: Rocephin IV 1 grams Route: IV; Rate: calculated rate; Site: left forearm; ha1 21:10 Follow up: Response: No adverse reaction; IV Status: Completed infusion; IV Intake: [id number] 09/23 01:00 Drug: Acetaminophen PO 1000 mg Route: PO; ha1 01:20 Follow up: Response: No adverse reaction ha1 Medication: :20 VIS not applicable for this client. ha1 Intake: 09/22 21:10 IV: 50ml; Total: 50ml. ha1 Outcome: 21:27 Decision to Hospitalize by Provider. sn 09/23 01:20 Admitted to Med/surg accompanied by tech, via wheelchair, with oxygen, Report called to santo Leyva RN 01:20 Condition: stable [facility] 01:20 Discharge instructions given to patient, Instructed on the need for admit, Demonstrated understanding of instructions. 01:24 Patient left the ED. sb4 Signatures: Dispatcher [employer] EDMS Benita Messina, LAYO-C TUBING [employer]RIER-Csnw Renetta Beard, RN NAYANA iw Yohan Canas, RN Malka Moore, RN NAYANA 1 Joanna Gurrola RN RN ha1 Brown, Sophia, PAJuan ManuelC PAGrupo sb4 Alba Mathis mm9 Eloisa Maria bc6 Laura Tesfaye PAS PAS ts1 Corrections: (The following items were deleted from the chart) 09/22 18:44 18:32 Chief complaint: Patient states: per patient he was having trouble standing, very iw exhausted and dizzy. bothers ex brought him in to er iw 18:44 18:32 BP 72 / 47; Pulse 46bpm; Pulse Ox 87% RA; iw iw
--- NOTE | 2022-09-22 21:28 | EDPHYS ---
Physician Documentation [facility] Name: Farhat Burch Sr Age: 77 yrs Sex: Male : 1945 Arrival Date: 09/22/2022 Time: 18:17 Bed 19 Private MD: ED Physician Anthony Haile HPI: 09/22 18:54 This 77 yrs old Male presents to ER via Wheelchair with complaints of Dizziness. snw 18:54 This 77 yrs old Male presents to ER via Wheelchair with complaints of Dizziness. snw 18:54 The patient presents with dizziness, generalized weakness. Onset: The symptoms/episode snw began/occurred gradually. Context: occurred at home. Associated signs and symptoms: Pertinent positives: dizziness. Severity of symptoms: At their worst the symptoms were moderate severe. The patient has experienced similar episodes in the past. It is unknown whether or not the patient has recently seen a physician[facility].. Historical: - Allergies: 18:44 No Known Allergies; iw - PMHx: 18:44 Anemia; Anxiety; neely esophagus; COPD; Depression; Diabetes - IDDM; Hyperlipidemia; iw Hypertension; resolved; Angina pectoris; 23:34 HIV positive; ha1 - Immunization history:: Adult Immunizations unknown. - Social history:: Smoking status: Patient/guardian denies using tobacco. ROS: 18:53 Eyes: Negative for injury, pain, redness, and discharge, ENT: Negative for injury, snw pain, and discharge, Neck: Negative for injury, pain, and swelling, Cardiovascular: Negative for chest pain, palpitations, and edema, Respiratory: Negative for shortness of breath, cough, wheezing, and pleuritic chest pain, Abdomen/GI: Negative for abdominal pain, nausea, vomiting, diarrhea, and constipation, Back: Negative for injury and pain, : Negative for injury, bleeding, discharge, and swelling, MS/Extremity: Negative for injury and deformity, Skin: Negative for injury, rash, and discoloration, Psych: Negative for depression, anxiety, suicide ideation, homicidal ideation, and hallucinations. 18:53 Constitutional: Positive for body aches, malaise, poor PO intake. 18:53 Neuro: Positive for dizziness, weakness. Exam: 18:51 Head/Face: Normocephalic, atraumatic. Eyes: Pupils equal round and reactive to light, snw extra-ocular motions intact. Lids and lashes normal. Conjunctiva and sclera are non-icteric and not injected. Cornea within normal limits. Periorbital areas with no swelling, redness, or edema. 18:51 Neck: Trachea midline, no thyromegaly or masses palpated, and no cervical lymphadenopathy. Supple, full range of motion without nuchal rigidity, or vertebral point tenderness. No Meningismus. Chest/axilla: Normal chest wall appearance and motion. Nontender with no deformity. No lesions are appreciated. 18:51 Respiratory: Lungs have equal breath sounds bilaterally, clear to auscultation and percussion. No rales, rhonchi or wheezes noted. No increased work of breathing, no retractions or nasal flaring. Abdomen/GI: Soft, non-tender, with normal bowel sounds. No distension or tympany. No guarding or rebound. No evidence of tenderness throughout. Back: No spinal tenderness. No costovertebral tenderness. Full range of motion. 18:51 Neuro: Awake and alert, GCS 15, oriented to person, place, time, and situation. Cranial nerves II-XII grossly intact. Motor strength 5/5 in all extremities. Sensory grossly intact. Cerebellar exam normal. Normal gait. Psych: Awake, alert, with orientation to person, place and time. Behavior, mood, and affect are within normal limits. 18:51 Constitutional: The patient appears awake, frail, lethargic, pale, unkempt, dry 18:51 ENT: Mouth: Oral mucosa: dry, Tongue: coated black, Dental exam: missing teeth, diffusely. 18:51 Cardiovascular: Rate: tachycardic, Heart sounds: normal, Edema: is not appreciated. 18:51 Skin: Appearance: Color: pale, Moisture: dry. Vital Signs: 18:32 BP 72 / 47; Pulse 100; Resp 16; Temp 98; Pulse Ox 87% on R/A; iw 19:45 BP 112 / 55; Pulse 79; Resp 18 S; Pulse Ox 94% on 2 lpm NC; ha1 20:35 BP 110 / 55; Pulse 75; Resp 16 S; Pulse Ox 98% on 2 lpm NC; ha1 21:30 BP 113 / 58; Pulse 77; Resp 19 S; Pulse Ox 99% on 2 lpm NC; ha1 22:38 BP 121 / 57; Pulse 77; Resp 20; Temp 98.3; Pulse Ox 100% on R/A; ha1 23:27 BP 125 / 60; Pulse 76; Resp 18 S; Temp 99; Pulse Ox 100% on 2 lpm NC; ha1 09/23 00:28 BP 122 / 49; Pulse 76; Resp 18 S; Temp 98.1(O); Pulse Ox 100% on R/A; ha1 00:58 BP 121 / 50; Pulse 70; Resp 20 S; Temp 99.4(O); Pulse Ox 100% on 2 lpm NC; ha1 MDM: 09/22 19:01 Patient medically screened. snw 21:22 Differential diagnosis: cardiac arrhythmia, generalized weakness, sepsis, vertigo. Data snw reviewed: vital signs, nurses notes. Management of patient was discussed with the following: Hospitalist: Jose Smith. Counseling: I had a detailed discussion with the patient and/or guardian regarding: the historical points, exam findings, and any diagnostic results supporting the discharge/admit diagnosis, lab results, radiology results, the need for further work-up and treatment in the hospital. Response to treatment: the patient's symptoms have mildly improved after treatment. 09/22 18:51 Order name: Basic Metabolic Panel; Complete Time: 19:56 snw 09/22 18:51 Order name: CBC with Diff; Complete Time: 19:47 snw 09/22 18:51 Order name: Hepatic Function; Complete Time: 19:56 snw 09/22 18:51 Order name: Magnesium; Complete Time: 19:56 snw 09/22 18:51 Order name: Protime (+inr); Complete Time: 19:31 snw 09/22 18:51 Order name: Ptt, Activated; Complete Time: 19:31 snw 09/22 18:51 Order name: Troponin High Sensitivity; Complete Time: 19:56 snw 09/22 18:51 Order name: Urinalysis w/ reflexes; Complete Time: 21:41 snw 09/22 18:51 Order name: TS snw 09/22 18:51 Order name: TSH; Complete Time: 19:56 snw 09/22 18:51 Order name: AMMONIA; Complete Time: 19:48 snw 09/22 18:51 Order name: Lipase; Complete Time: 19:56 snw 09/22 18:56 Order name: Lactate w/ 2H reflex if indic.; Complete Time: 20:01 snw 09/22 19:32 Order name: Manual Differential; Complete Time: 19:47 EDMS 09/22 19:33 Order name: Bb Add On snw 09/22 19:35 Order name: Blood Culture Adult (2) snw 09/22 19:35 Order name: Packed RBC Leukored EDMS 09/22 18:51 Order name: Chest Single View XRAY; Complete Time: 20:16 snw 09/22 19:36 Order name: CT Chest Abdomen Pelvis W/O Contrast; Complete Time: 20:48 snw 09/22 18:51 Order name: EKG; Complete Time: 18:52 snw 09/22 18:51 Order name: Cardiac monitoring; Complete Time: 19:10 snw 09/22 18:51 Order name: EKG - Nurse/Tech; Complete Time: 19:12 snw 09/22 18:51 Order name: IV Saline Lock; Complete Time: 18:57 snw 09/22 18:51 Order name: Labs collected and sent; Complete Time: 18:57 snw 09/22 18:51 Order name: NPO; Complete Time: 18:57 snw 09/22 18:51 Order name: O2 Per Protocol; Complete Time: 18:57 snw 09/22 18:51 Order name: O2 Sat Monitoring; Complete Time: 18:57 snw 09/22 19:33 Order name: Consent for Blood Transfusion; Complete Time: 21:37 snw 09/22 19:33 Order name: IV Saline Lock; Complete Time: 20:25 snw EC:15 Rate is 93 beats/min. Rhythm is irregular. QRS [place] is Normal. QRS interval is snw prolonged. Clinical impression: Left BBB, not new, last EKG 07/08/2022, trop >600, Plt 66, will hold blood thinners. Administered Medications: 19:12 Drug: NS 0.9% IV 1000 ml Route: IV; Rate: 125 ml/hr; Site: left antecubital; vg1 19:50 Drug: foLIC Acid IVPB 1 mg Route: IVPB; Site: left forearm; ha1 20:15 Follow up: Response: No adverse reaction ha1 20:50 Drug: Rocephin IV 1 grams Route: IV; Rate: calculated rate; Site: left forearm; ha1 21:10 Follow up: Response: No adverse reaction; IV Status: Completed infusion; IV Intake: [id number] 09/23 01:00 Drug: Acetaminophen PO 1000 mg Route: PO; ha1 01:20 Follow up: Response: No adverse reaction ha1 Disposition: 08:01 Co-signature as Attending Physician, Anthony Haile MD I reviewed the patient's care rt provided by the Advanced Practice Provider and agree with the diagnosis and treatment plan. Disposition Summary: 09/22/22 21:27 Hospitalization Ordered Hospitalization Status: Inpatient Admission snw Provider: Phuc García snw Location: Telemetry/MedSurg (Inpatient) snw Condition: Fair snw Problem: an acute exacerbation snw Symptoms: have worsened snw Bed/Room Type: Standard snw Room Assignment: 217(09/22/22 21:55) mw Diagnosis - Subsequent non-ST elevation (NSTEMI) myocardial infarction snw - Dehydration snw - Acute kidney injury snw - Unspecified bacterial pneumonia snw - Spiculated lung mass snw - Anemia in other chronic diseases classified elsewhere snw Forms: - Medication Reconciliation Form snw - SBAR form snw Signatures: Dispatcher [employer] EDMS Damaris Mayer RN Benita Franks FNP-C METAL TRIMMER-Csnw Renetta Beard, RN Malka Vicente RN RN [id number] Charline Elder RN NAYANA [id number] Joanna Gurrola RN RN ha1 Honey Montanez PAJuan ManuelC PAGrupo [id number] Anthony Haile MD MD rt Corrections: (The following items were deleted from the chart) 09/22 21:55 21:27 snw mw
[2022-09-22 21:33] LABS: Specific Gravity 1.024 (1.005-1.030); Urine Bacteria None Seen /HPF (<20); Urine Bilirubin NEGATIVE (Negative); Urine Blood Negative (Negative); Urine Clarity Turbid (Clear); Urine Color Yellow (Yellow); Urine Glucose NEGATIVE (Negative); Urine Mucus Slight /HPF (None Seen); Urine Protein 1+ (Negative); Urine RBC <5 /HPF (None Seen); Urine Urobilinogen 1+ (Normal); Urine pH 5.5 (5.0-7.0)
--- NOTE | 2022-09-22 21:43 | P.HP ---
Certification for Inpatient Patient admitted to: Inpatient With expected LOS: >2 Midnights Patient will require the following post-hospital care: None Practitioner: I am a practitioner with admitting privileges, knowledge of patient current condition, hospital course, and medical plan of care. Services: Services provided to patient in accordance with Admission requirements found in Title 42 Section 412.3 of the Code of Federal Regulations Patient History Date of Service: 09/22/22 Primary Care Provider: BRIDGER Reason for admission: NSTEMI, Anemia, Pneumonia History of Present Illness: Mr. Burch is a 77-year-old male with past medical history of COPD, DM2, HLD, Carter's Esophagus, hypertension, and coronary artery disease who was brought to the emergency department by family with concerns of weakness and dizziness. They state that he can barely stand. He was noted to have an initial blood pressure of 72/47. Labs are significant for BUN 36, creatinine 1.93, WBC 29.3, hemoglobin 6.3, hematocrit 21.2, platelets 66, troponin 632. EKG without any acute changes, LBBB still present. He denies any chest pain, shortness of b reath, melena, hematemesis. CT chest abdomen pelvis showed "Poorly defined spiculated lesion measuring 16 mm in the posterior left upper lobe. Given the adenopathy in the mediastinum, further workup is warranted. Recommend follow-up PET-CT for further evaluation. Ill-defined opacities in both lung bases with small pleural effusion probably atelectasis or infiltrate. Cholelithiasis." Blood pressure improved with IV fluids. 2 units PRBC transfusing. Patient will be admitted for further management. Allergies No Known Drug Allergies Allergy (Verified 07/08/22 23:57) Unknown Home medications list reviewed: Yes Home Medications: Albuterol Inhaler [Ventolin Inhaler*] 90 mcg IN Q6H PRN 07/12/14 Aspirin [Aspirin EC 81 MG] 81 mg PO DAILY 07/12/14 Buspirone HCl [Buspar] 10 mg PO TID 07/12/14 Cyanocobalamin [Vitamin B-12*] 1,000 mcg PO DAILY 07/12/14 Duloxetine HCl 60 mg PO DAILY 07/12/14 Finasteride [Proscar*] 5 mg PO DAILY 07/12/14 Flunisolide [Nasarel] 25 mcg BID 07/12/14 Glipizide [Glipizide ER] 10 mg PO BID 07/12/14 Hydroxyzine Pamoate 25 mg PO TID 07/12/14 Isosorbide Mononitrate [Ismo] 20 mg PO DAILY 07/12/14 Loratadine [Claritin*] 10 mg PO DAILY 07/12/14 Metoprolol Succinate [Toprol Xl*] 50 mg PO DAILY 07/12/14 Omeprazole [Prilosec] 20 mg PO BID 07/12/14 Tamsulosin [Flomax*] 0.4 mg PO BEDTIME 07/12/14 Trazodone [Desyrel*] 50 mg PO BEDTIME 07/12/14 oxyBUTYnin chloride [Ditropan*] 5 mg PO BID 07/12/14 Fluticasone/Salmeterol [Advair 250/50 Diskus*] 1 puff IH BID #1 disk 07/14/14 Sitagliptin Phosphate [Januvia] 50 mg PO DAILY #30 tablet 07/14/14 Tiotropium [Spiriva Handihaler*] 1 sprays IH DAILY #30 inh 07/14/14 Fluconazole [Diflucan] 200 mg PO DAILY #14 07/13/22 Nystatin 5 ml PO TID #200 ml 07/13/22 Fluconazole [Diflucan] 200 mg PO DAILY #14 tab 07/15/22 - Past Medical/Surgical History Diabetic: Yes -: Anxiety disorder -: Depression -: Hypertension -: COPD -: DM2-IDDM -: HLD -: CKD (Dr. Brower/ Jose Raul) -: knee surgery Psychosocial/ Personal History: Patient is . - Family History Father -: Heart disease, Diabetes Mother -: Heart disease - Social History Smoking Status: Current every day smoker Alcohol use: No CD- Drugs: No Caffeine use: Yes Place of Residence: Home Review of Systems General: Weakness, Malaise Neurological: Weakness, Other (Dizziness) Physical Examination - Vital Signs Temperature: 98 F Blood Pressure: 112/55 Pulse: 79 Respirations: 18 Pulse Ox (%): 94 (2L NC) - Physical Exam General: In no apparent distress, Cachectic HEENT: Atraumatic, Other (Tongue coated black), EOMI Neck: Supple, 2+ carotid pulse no bruit Respiratory: Clear to auscultation bilaterally, Normal air movement Cardiovascular: Regular rate/rhythm, Normal S1 S2 Gastrointestinal: Normal bowel sounds, No tenderness Musculoskeletal: No tenderness Integumentary: No rashes Neurological: Normal speech, Normal affect - Studies Laboratory Data (last 24 hrs) 09/22/22 19:00: PT 12.6 H, INR 1.15, APTT 29.4 09/22/22 19:00: WBC 29.30 H, Hgb 6.3 L, Hct 21.2 L, Plt Count 66 L 09/22/22 19:00: Sodium 137, Potassium 3.5, BUN 36 H, Creatinine 1.93 H, Glucose 191 H, Magnesium 2.1, Total Bilirubin 0.8, AST 36, ALT 15 L, Alkaline Phosphatase 86, Lipase 11 L Assessment and Plan - Problems (Diagnosis) (1) NSTEMI (non-ST elevated myocardial infarction) Current Visit: Yes Status: Acute (2) Anemia Current Visit: Yes Status: Acute Qualifiers: Anemia type: unspecified type Qualified Code(s): D64.9 - Anemia, unspecified (3) Acute kidney injury superimposed on CKD Current Visit: Yes Status: Acute (4) Pneumonia Current Visit: Yes Status: Acute Qualifiers: Pneumonia type: due to unspecified organism Laterality: bilateral Lung location: lower lobe of lung Qualified Code(s): J18.9 - Pneumonia, unspecified organism (5) Lung mass Current Visit: Yes Status: Acute (6) COPD (chronic obstructive pulmonary disease) Current Visit: Yes Status: Chronic Qualifiers: COPD type: unspecified COPD Qualified Code(s): J44.9 - Chronic obstructive pulmonary disease, unspecified (7) Cachexia Current Visit: Yes Status: Chronic (8) DM2 (diabetes mellitus, type 2) Current Visit: Yes Status: Chronic Qualifiers: Diabetes mellitus long term care administrator insulin use: with halfway use Diabetes mellitus complication status: with hyperglycemia Qualified Code(s): E11.65 - Type 2 diabetes mellitus with hyperglycemia; Z79.4 - termite helper (current) use of insulin - Plan NSTEMI, tyep II Troponin elevated at 632 He denies any chest pain EKG unchanged I suspect more demand, as he is very anemic and dehydrated Continue to trend Consult cardiology Cannot start heparin or lovenox given his anemia and thrombocytopenia Anemia of chronic disease/CKD vs acute blood loss 2 units PRBC transfusing He denies melana, hematemesis Per chart review, this occurred about 2 months ago and he underwent EGD and colonoscopy which were negative 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 Cessation advised. PRN breathing treatments He is requiring 2L O2 at this time Pneumonia Continue azithromycin and rocephin WBC elevated at 29 Patient reports lethargy, cough, no fever Pulmonology consulted Incentive spirometry Blood cultures obtained Type 2 Diabetes Glucose monitoring and control with sliding scale Check lipid panel and A1c Monitor and replete electrolytes per protocol Reconcile and continue home medications SCDs for VTE prophylaxis Full code Patient's son, Krystian, can be reached at [phone] Discharge Plan: Home Plan to discharge in: Greater than 2 days - Advance Directives Does patient have a Living Will: No Does patient have a Durable POA for Healthcare: No - Code Status/Comfort Care Code Status Assessed: Yes Code Status: Full Code Physician Review: Patient Assessed, Agree with Above Assessment and Plan Critical Care: No Time Spent Managing Pts Care (In Minutes): 50
[2022-09-22] MEDS ORDERED: NA CHLORIDE 0.9% 250 ML ONE (21:54)
[2022-09-23] MEDS ORDERED: ACETAMINOPHEN 500 MG TAB PO PRN (00:44)
[2022-09-23] MEDS ORDERED: ONDANSETRON 4 MG/2 ML VIAL IV PRN (00:44)
[2022-09-23] MEDS ORDERED: ALBUTEROL 2.5 MG/3 ML NEB SOL NEB PRN ×2 (00:44→14:00)
[2022-09-23] MEDS ORDERED: ACETAMINOPHEN 500 MG TAB ONE (01:09)
[2022-09-23 01:59] VITALS: BMI 17.9
[2022-09-23] MEDS: NA CHLORIDE 0.9% 1,000 ML IV SCH ×2 (02:05→08:44)
[2022-09-23] MEDS ORDERED: NA CHLORIDE 0.9% 250 ML ONE (02:11)
[2022-09-23 03:32] LABS: BUN Blood Urea Nitrogen 34 mg/dL (7-18); Bicarbonate 25 mEq/L (21-32); Ferritin 328.8 ng/mL (26-388); Glomerular Filtration Rate 42 ml/min (=/>90); Glucose Level 154 mg/dL (74-106); HDL Cholesterol 25 mg/dL (40-60); LDL Cholesterol, Calculated 26 mg/dL (<130); Phosphorus 3.6 mg/dL (2.5-4.9); Potassium 3.7 mEq/L (3.5-5.1); Sodium Level 142 mEq/L (136-145); Transferrin 176 mg/dL (200-360)
[2022-09-23 03:33] LABS: Hematocrit 21.8 % (39.6-49.0); MCV 88.8 fL (80-100); MPV 8.1 fL (7.6-11.3); RBC Red Blood Cell Count 2.46 M/uL (4.33-5.43)
[2022-09-23 05:24] LABS: Platelet Estimate DECR; Platelets, Giant OCC
[2022-09-23 05:25] LABS: Anisocytosis 1+; Blood Morphology Comment NOTED (NOT SEEN); Polychromasia 1+
[2022-09-23 05:26] LABS: Hypochromasia 1+
[2022-09-23] MEDS ORDERED: KCL 20 MEQ/100 mL IVPB 20 MEQ/100 ML BAG IV SCH (07:30)
[2022-09-23 08:03] LABS: Hematocrit 23.9 % (39.6-49.0)
[2022-09-23] MEDS: CEFTRIAXONE 1,000 MG in NA CHLORIDE 0.9% 50 ML IVPB SCH (08:58)
[2022-09-23] MEDS: ASPIRIN EC 81 MG TAB PO SCH ×2 (08:59)
[2022-09-23] MEDS ORDERED: AZITHROMYCIN IV 500 MG in NA CHLORIDE 0.9% 250 ML IVPB SCH (09:00)
[2022-09-23] MEDS ORDERED: FUROSEMIDE 20 MG/ 2ML VIAL IV ONE (10:06)
[2022-09-23] MEDS ORDERED: METHYLPREDNISOLONE 125 MG INJ IV ONE (10:06)
--- NOTE | 2022-09-23 10:17 | P.PN ---
Date of Service: 09/23/22 Subjective Patient is well-known to me from prior admissions. Patient is a 77-year-old gentleman who we saw a couple of months ago for anemia. His work-up revealed esophageal candidiasis. HIV testing was positive. Patient was started on Diflucan as well as recommended to follow-up with HIV clinic. 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 We recommended follow-up with oncology. Patient presents with anemia once again. No signs of active GI bleeding. Patient has not been to follow-up with any of his physicians as recommended. Patient appears to have a spiculated lung mass. He most likely has lung mass with liver metastasis. Consulted pulmonary Dr. [place] as well as cardiology for non-STEMI. Consulted nephrology for chronic kidney disease. Consulted infectious disease for HIV diagnosis. Patient still appears to have thrush. We will continue with Diflucan. Continue with treatment for opportunistic infection and CD4 count is pending. Patient has poor prognosis. I have reached out to the son to contact me regarding patient's clinical status. Long-term prognosis is poor. patient looks to have a malignancy that we cannot treat because of his questionable status of his immune system. He will need to get started on antiviral therapy before he can get referred for treatment for what appears to be a lung malignancy with metastasis. I did leave my information for the son to call me. Patient was short of breath during the day and weak placed a Gil catheter and diuresed him as he has got a couple units of blood And also was given IV hydration. After diuresis his clinical symptoms appear to be much better. Appreciate php consultant's recommendations on patient's care. Physical Examination - Vital Signs Reviewed - Physical Exam General: In no apparent distress, Cachectic HEENT: Atraumatic, Other (Tongue coated black), EOMI Neck: Supple, 2+ carotid pulse no bruit Respiratory: Clear to auscultation bilaterally, Normal air movement Cardiovascular: Regular rate/rhythm, Normal S1 S2 Gastrointestinal: Normal bowel sounds, No tenderness Musculoskeletal: No tenderness Integumentary: darkish pigmentation rashes on the arms Neurological: Normal speech, Normal affect Assessment and Plan - Problems (Diagnosis) (1) NSTEMI (non-ST elevated myocardial infarction) Current Visit: Yes Status: Acute (2) Anemia Current Visit: Yes Status: Acute Qualifiers: Anemia type: unspecified type Qualified Code(s): D64.9 - Anemia, unspecified (3) Acute kidney injury superimposed on CKD Current Visit: Yes Status: Acute (4) Pneumonia Current Visit: Yes Status: Acute Qualifiers: Pneumonia type: due to unspecified organism Laterality: bilateral Lung location: lower lobe of lung Qualified Code(s): J18.9 - Pneumonia, unspecified organism (5) Lung mass with liver mets Current Visit: Yes Status: Acute (6) COPD (chronic obstructive pulmonary disease) Current Visit: Yes Status: Chronic Qualifiers: COPD type: unspecified COPD Qualified Code(s): J44.9 - Chronic obstructive pulmonary disease, unspecified (7) AIDS with cachexia; HIV with esophageal candidiasis Current Visit: Yes Status: Chronic (8) DM2 (diabetes mellitus, type 2) Current Visit: Yes Status: Chronic Qualifiers: Diabetes mellitus dedicated intermodal truck driver insulin use: with residential use Diabetes mellitus complication status: with hyperglycemia Qualified Code(s): E11.65 - Type 2 diabetes mellitus with hyperglycemia; Z79.4 - superintendent marine oil terminal (current) use of insulin - Plan 1. Consult Infectious Disease. May benefit from starting antiviral therapy while in the hospital. Also may need to cover opportunistic infections. CD4 count and viral load pending 2. Continue monitoring H&H. Hemoglobin has stabilized but we gave patient 2 units of packed red blood cells. Patient could have bone marrow suppression from HIV infection as he has no active signs of blood loss 3. Supportive care for lung malignancy with possible liver metastasis. May check alpha fetoprotein level as well 4. Strict blood pressure blood sugar control 5. Echocardiogram pending. Troponin most likely from demand ischemia. We will assess systolic function and wall motion. Cardiology consultation appreciated 6. Long-term prognosis remains poor with multiple conditions with poor prognostic signs. Consultation pending with son. I left my phone number and hopefully he will call me back today. Discharge Plan: Home Plan to discharge in: Greater than 2 days - Advance Directives Does patient have a Living Will: No Does patient have a Durable POA for Healthcare: No - Code Status/Comfort Care Code Status Assessed: Yes Code Status: Full Code Physician Review: Patient Assessed, Agree with Above Assessment and Plan Critical Care: No Time Spent Managing Pts Care (In Minutes): 50
[2022-09-23] MEDS ORDERED: MORPHINE 2 MG/ML SYR IV ONE (11:22)
[2022-09-23] MEDS ORDERED: clonazePAM 1 MG TAB PO ONE (11:23)
--- NOTE | 2022-09-23 11:27 | RAD REPORT ---
EXAM DESCRIPTION: RADChest Single View09/23/2022 11:18 am CLINICAL HISTORY: dyspnea COMPARISON: Chest Single View dated 09/22/2022; Chest Single View dated 07/08/2022; Chest Single View d ated 11/11/2020; Chest Single View dated 07/02/2020 TECHNIQUE: Portable AP view of the chest. FINDINGS: Progressive patchy central and basilar airspace opacities bilaterally. Elevation of the ri ght hemidiaphragm again noted. No pneumothorax or effusion. The cardiomediastinal contours are unrema rkable. IMPRESSION: Progressive patchy central and basilar airspace opacities, may reflect worsening edema o r superimposed pneumonia.
[2022-09-23] MEDS ORDERED: METHYLPREDNISOLONE 125 MG INJ IV SCH ×2 (12:00→18:00)
--- NOTE | 2022-09-23 12:14 | P.CNS ---
Date of Consult: 09/23/22 Primary Care Provider: BRIDGER Chief Complaint: NSTEMI, Anemia, Pneumonia History of Present Illness: Patient is 77 years of age with a history of COPD has some dyspnea on exertion continues to smoke he was admitting feeling bad found to be severely anemic denies any history of bleeding history of coronary artery disease and diabetes his white count was also significantly elevated shortness of breath on mild exertion patient's troponin was also significantly elevated denies any chest pain Allergies No Known Drug Allergies Allergy (Verified 09/23/22 01:28) Unknown - Past Medical/Surgical History Diabetic: Yes -: Anxiety disorder -: Depression -: Hypertension -: COPD -: DM2-IDDM -: HLD -: CKD (Dr. Brower/ Jose Raul) -: knee surgery Psychosocial/ Personal History: Patient is . - Family History Father Medical History: Heart disease, Diabetes Mother Medical History: Heart disease - Social History Smoking Status: Current every day smoker Alcohol use: No CD- Drugs: No Caffeine use: Yes Place of Residence: Home Review of Systems 10-point ROS is otherwise unremarkable General: Weakness Respiratory: Shortness of Breath Physical Examination Temp Pulse Resp BP Pulse Ox 100.2 F 85 32 H 138/61 95 09/23/22 11:44 09/23/22 10:39 09/23/22 11:40 09/23/22 10:39 09/23/22 11:40 General: Alert, In no apparent distress Neck: Supple Respiratory: Clear to auscultation bilaterally, Diminished Cardiovascular: No edema, Regular rate/rhythm, Normal S1 S2 Gastrointestinal: Normal bowel sounds, Soft and benign, Non-distended Laboratory Data (last 24 hrs) 09/22/22 19:00: PT 12.6 H, INR 1.15, APTT 29.4 09/22/22 19:00: WBC 29.30 H, Hgb 6.3 L, Hct 21.2 L, Plt Count 66 L 09/22/22 19:00: Sodium 137, Potassium 3.5, BUN 36 H, Creatinine 1.93 H, Glucose 191 H, Magnesium 2.1, Total Bilirubin 0.8, AST 36, ALT 15 L, Alkaline Phosphatase 86, Lipase 11 L - Problems (1) COPD (chronic obstructive pulmonary disease) Current Visit: Yes Status: Chronic Plan: Patient is 77 years of age I suspect he has underlying significant COPD followed up at the ID has albuterol at home continues to smoke CT scan possible bibasilar pneumonia his white count is significantly elevated continue with antibiotic changed to p.o. prednisone Qualifiers: COPD type: unspecified COPD Qualified Code(s): J44.9 - Chronic obstructive pulmonary disease, unspecified (2) NSTEMI (non-ST elevated myocardial infarction) Current Visit: Yes Status: Acute Plan: Troponins are significantly elevated suspect non-STEMI EKGSinus rhythm with premature atrial complexes Left bundle branch block Abnormal ECG Compared to ECG 07/08/2022 10:16:19 Atrial premature complex(es) now present Sinus arrhythmia no longer present Left-axis deviation no longer present (3) Anemia Current Visit: Yes Status: Acute Plan: Unspecified anemia will need a work-up Qualifiers: Other causes of anemia: other cause, not classified
[2022-09-23] MEDS: ARFORMOTEROL TARTRATE 15 MCG/2 ML VIAL.NEB NEB SCH ×2 (12:18→20:40)
--- NOTE | 2022-09-23 13:49 | P.CNS ---
Date of Consult: 09/23/22 Reason for Consult: HIV/Pneumonia Primary Care Provider: OR Chief Complaint: NSTEMI, Anemia, Pneumonia History of Present Illness: Patient is a 77 yo male with a PMH of COPD, Diabetes type 2, hypertension, coronary artery disease and reported recent diagnosis of HIV not on medication, who presented to the ED with complaints of weakness and dizziness. Workup in ED revealing patient to be hypotensive with BP of 72/47, Hgb 6.3, WBC 29.3, Cr 1.93, plt 77, troponin 632. CT Chest showing "Ill-defined infiltrate is seen posterior left upper lobe and both posterior lower lobes.Spiculated lesion in the posterior left upper lobe measuring 16 mm (image 23/137).Small bilateral pleural effusions.Enlarged lymph nodes are seen in the mediastinum at, largest measuring 2.8 cm in the AP window." Patient reports recent diagnosis of HIV abou t 2 months ago, not on HIV medication. ID was consulted for HIV/Pneumonia Allergies No Known Drug Allergies Allergy (Verified 09/23/22 01:28) Unknown - Past Medical/Surgical History Diabetic: Yes -: Anxiety disorder -: Depression -: Hypertension -: COPD -: DM2-IDDM -: HLD -: CKD (Dr. Brower/ [facility] Ra[facility]) -: knee surgery Psychosocial/ Personal History: Patient is . - Family History Father Medical History: Heart disease, Diabetes Mother Medical History: Heart disease - Social History Smoking Status: Current every day smoker (2 cartons per month) Counseled patient to stop smoking for: less than 10 minutes Smoking therapy provided: Yes Patient receptive to therapy: Yes Alcohol use: No CD- Drugs: No Caffeine use: Yes Place of Residence: Home Review of Systems 10-point ROS is otherwise unremarkable General: Weakness Physical Examination Temp Pulse Resp BP Pulse Ox 100.2 F 93 H 24 H 133/58 L 92 09/23/22 12:00 09/23/22 12:00 09/23/22 12:10 09/23/22 12:00 09/23/22 12:10 General: Alert, In no apparent distress, Oriented x3, Cachectic HEENT: Atraumatic, Other (dark/black discoloration of tongue) Neck: 2+ carotid pulse no bruit, No Thyromegaly Respiratory: Diminished, Crackles/rales (R>L) Cardiovascular: No edema, Normal pulses Gastrointestinal: Normal bowel sounds, Non-distended Musculoskeletal: No clubbing, No swelling Integumentary: No rashes, No breakdown Neurological: Normal speech, Normal tone, Normal affect Laboratory Data - Reviewed Microbiology Data - Reviewed Imagings Data: - CT Chest 09/22: "Ill-defined infiltrate is seen posterior left upper lobe and both posterior lower lobes.Spiculated lesion in the posterior left upper lobe measuring 16 mm (image 23/137).Small bilateral pleural effusions.Enlarged lymph nodes are seen in the mediastinum at, largest measuring 2.8 cm in the AP window." Conclusions/Impression: Problem List - Coronary Artery Disease - Cachexia - COPD - Diabetes Mellitus Type II - Pneumonia - Anemia - Moderate PCM - HIV HIV - Patient reports recent diagnosis of HIV about 2 months ago. Not currently on HIV medication. - HIV 1&2 Ab,P24 Ag 4th gen on 07/14/2022: Reactive - CD4 count and viral load labs ordered, pending Pneumonia COPD - CT Chest 09/22: "Ill-defined infiltrate is seen posterior left upper lobe and both posterior lower lobes. Spiculated lesion in the posterior left upper lobe measuring 16 mm (image 23/137). Small bilateral pleural effusions. Enlarged lymph nodes are seen in the mediastinum at, largest measuring 2.8 cm in the AP window." - Pulmonology on case - COPD: on Albuterol, Brovana and Prednisone - Antibiotics: Currently on Ceftriaxone and Azithromycin (started 09/23). Blood cultures 09/22: Pending Leukocytosis (WBC 23.7). Low grade fever, temp 100.2 F Recommendations - Continue current antibiotics for now. Awaiting blood culture results, will adjust antibiotics as appropriate. - CD4 count and viral load labs ordered, pending - Obtain sputum culture if possible - Continue supportive care and nutritional support as needed - Monitor WBC and fever trends ID will follow up and monitor patient closely. Case discussed with Calista Roblero. Thank you Dr. García for consult.
[2022-09-23] MEDS ORDERED: clonazePAM 0.5 MG TAB PO SCH (14:00)
--- NOTE | 2022-09-23 15:23 | EKG ---
Test Date: 2022-09-22 Test Time: 19:03:55 Program Clerk: JIMI MEASUREMENT RESULTS: Intervals: Rate: 93 VT: 166 QRSD: 148 QT: 438 QTc: 544 [place]: P: 39 VT: 166 QRS: 12 T: 110 INTERPRETIVE STATEMENTS: Sinus rhythm with premature atrial complexes Left bundle branch block Abnormal ECG Compared to ECG 07/08/2022 10:16:19 Atrial premature complex(es) now present Sinus arrhythmia no longer present Left-axis deviation no longer present Electronically Signed On 09-23-22 15:21:48 CDT by Arnold Estes
[2022-09-23] MEDS ORDERED: FUROSEMIDE 20 MG/ 2ML VIAL IV SCH (17:00)
[2022-09-23] MEDS: FLUCONAZOLE 200mg IVPB 200 MG/100 ML BAG IV SCH (17:41)
[2022-09-23] MEDS: GLUCERNA SHAKE 237 ML CAN PO SCH (21:08)
[2022-09-23] MEDS: predniSONE 20 MG TAB PO SCH (21:08)
[2022-09-23] MEDS: clonazePAM 0.5 MG TAB PO SCH (21:08)
[2022-09-23] MEDS: NYSTATIN 500,000 UNIT/5 ML UDC PO SCH (21:08)
--- NOTE | 2022-09-23 22:10 | P.CNS ---
Date of Consult: 09/23/22 Reason for Consult: LIANNA/ CKD Requesting Physician: Phuc García Primary Care Provider: BRIDGER Chief Complaint: NSTEMI, Anemia, Pneumonia History of Present Illness: Mr. Burch is a 77-year-old male with past medical history of COPD, DM2, HLD, Carter's Esophagus, hypertension, and coronary artery disease who was brought to the emergency department by family with concerns of weakness and dizziness. They state that he can barely stand. He was noted to have an initial blood pressure of 72/47. Labs are significant for BUN 36, creatinine 1.93, WBC 29.3, hemoglobin 6.3, hematocrit 21.2, platelets 66, troponin 632. EKG without any acute changes, LBBB still present. He denies any chest pain, shortness of breath, melena, hematemesis. CT chest abdomen pelvis showed "Poorly defined spiculated lesion measuring 16 mm in the posterior left upper lobe. Given the adenopathy in the mediastinum, further workup is warranted. Recommend follow-up PET-CT for further evaluation. Ill-defined opacities in both lung bases with small pleural effusion probably atelectasis or infiltrate. Cholelithiasis." Blood pressure improved with IV fluids. 2 units PRBC transfusing. Patient will be admitted for further management. [id number] 18:54 This 77 yrs old Male presents to ER via Wheelchair with complaints of Dizziness. snw 18:54 This 77 yrs old Male presents to ER via Wheelchair with complaints of Dizziness. snw 18:54 The patient presents with dizziness, generalized weakness. Onset: The symptoms/episode snw began/occurred gradually. Context: occurred at home. Associated signs and symptoms: Pertinent positives: dizziness. Severity of symptoms: At their worst the symptoms were moderate severe. The patient has experienced similar episodes in the past. It is unknown whether or not the patient has recently seen a physician. sees the [facility], wants to be admitted here.. Allergies No Known Drug Allergies Allergy (Verified 09/23/22 01:28) Unknown Home medications list reviewed: Yes - Past Medical/Surgical History Diabetic: Yes -: Anxiety disorder -: Depression -: Hypertension -: COPD -: DM2-IDDM -: HLD -: CKD (Dr. Brower/ [facility] Raul) -: knee surgery Psychosocial/ Personal History: Patient is . - Family History Father Medical History: Heart disease, Diabetes Mother Medical History: Heart disease - Social History Smoking Status: Current every day smoker (2 cartons per month) Alcohol use: No CD- Drugs: No Caffeine use: Yes Place of Residence: Home Review of Systems 10-point ROS is otherwise unremarkable General: Weakness Physical Examination Temp Pulse Resp BP Pulse Ox 98.4 F 81 15 156/61 H 94 09/23/22 20:00 09/23/22 20:00 09/23/22 20:00 09/23/22 20:00 09/23/22 20:00 General: In no apparent distress, Oriented x3, Cooperative HEENT: Atraumatic Neck: Supple Respiratory: Normal air movement Cardiovascular: No edema, Regular rate/rhythm Gastrointestinal: Soft and benign, Non-distended Musculoskeletal: No clubbing, No contractures Integumentary: No rashes, No cyanosis Neurological: Normal speech Blood work reviewed in the chart Imagings Data: [id number] EXAM DESCRIPTION: RADChest Single View09/23/2022 11:18 am CLINICAL HISTORY: dyspnea COMPARISON: Chest Single View dated 09/22/2022; Chest Single View dated 07/08/2022; Chest Single View dated 11/11/2020; Chest Single View dated 07/02/2020 TECHNIQUE: Portable AP view of the chest. FINDINGS: Progressive patchy central and basilar airspace opacities bilaterally. Elevation of the right hemidiaphragm again noted. No pneumothorax or effusion. The cardiomediastinal contours are unremarkable. IMPRESSION: Progressive patchy central and basilar airspace opacities, may reflect worsening edema or superimposed pneumonia. [id number] EXAM DESCRIPTION: CT - Chest Abd Pelvis Wo Con - 09/22/2022 8:26 pm CLINICAL HISTORY: Chest and abdomen pain. MALAISE COMPARISON: <Comparisons> TECHNIQUE: Limited noncontrast study was performed. All CT scans are performed using dose optimization technique as appropriate and may include automated exposure control or mA/KV adjustment according to patient size. FINDINGS: Ill-defined infiltrate is seen posterior left upper lobe and both posterior lower lobes.Spiculated lesion in the posterior left upper lobe measuring 16 mm (image 23/137).Small bilateral pleural effusions.Enlarged lymph nodes are seen in the mediastinum at, largest measuring 2.8 cm in the AP window. The liver, spleen, pancreas, adrenal glands and kidneys are within normal limits. Cholelithiasis. No bowel obstruction, free air, free fluid or abscess. Mild stool is retained throughout the colon. Normal appendix. No pathologic lymphadenopathy in the abdomen or pelvis. No worrisome osseous finding. IMPRESSION: Poorly defined spiculated lesion measuring 16 mm in the posterior left upper lobe.Given the adenopathy in the mediastinum, further workup is warranted. Recommend follow-up PET-CT for further evaluation. Ill-defined opacities in both lung bases with small pleural effusion probably atelectasis or infiltrate. Cholelithiasis. Conclusions/Impression: Stage I LIANNA improving CKD III with proteinuria -No NSAIDs Hypokalemia -Replete potassium HTN with CKD -Monitor BP DM II with CKD -Wean steroids as tolerated -Consider RISS Anemia in chronic illness Iron Deficiency 15% -Transfuse PRBC prn -Consider IV iron HIV/ AIDS Oral thrush -ID following Thank you kindly for the consultation
[2022-09-23] MEDS: MELATONIN 5 MG TABLET PO PRN (22:13)
[2022-09-23] MEDS: MORPHINE 2 MG/ML SYR IV PRN (22:13)
[2022-09-24 04:47] LABS: MCV 87.1 fL (80-100); MPV 8.7 fL (7.6-11.3); RBC Red Blood Cell Count 2.64 M/uL (4.33-5.43)
[2022-09-24 05:03] LABS: Potassium 3.6 mEq/L (3.5-5.1)
[2022-09-24 05:19] LABS: Blood Morphology Comment NOTED (NOT SEEN); Hypochromasia 1+; Platelet Estimate DECR; Polychromasia 1+
[2022-09-24 05:20] LABS: Basophilic Stippling 2+
[2022-09-24] MEDS ORDERED: NA CHLORIDE 0.9% 250 ML IV SCH (06:00)
[2022-09-24] MEDS: ARFORMOTEROL TARTRATE 15 MCG/2 ML VIAL.NEB NEB SCH ×2 (08:30→21:30)
[2022-09-24] MEDS ORDERED: AZITHROMYCIN 250 MG TAB PO SCH (09:00)
[2022-09-24] MEDS ORDERED: POTASSIUM CL SA 10 MEQ TAB PO ONE (09:00)
[2022-09-24] MEDS ORDERED: levoFLOXacin 250 MG TAB PO SCH (09:00)
[2022-09-24] MEDS: GLUCERNA SHAKE 237 ML CAN PO SCH ×3 (09:00→20:18)
[2022-09-24] MEDS: CEFTRIAXONE 1,000 MG in NA CHLORIDE 0.9% 50 ML IVPB SCH (09:33)
[2022-09-24] MEDS: clonazePAM 0.5 MG TAB PO SCH ×3 (09:36→20:18)
[2022-09-24] MEDS: predniSONE 20 MG TAB PO SCH ×2 (09:36→20:18)
[2022-09-24] MEDS: ASPIRIN EC 81 MG TAB PO SCH (09:36)
[2022-09-24] MEDS: NYSTATIN 500,000 UNIT/5 ML UDC PO SCH ×4 (09:37→20:18)
[2022-09-24] MEDS: ACETAMINOPHEN 325 MG TABLET PO PRN (11:19)
--- NOTE | 2022-09-24 12:11 | P.PN ---
Subjective Date of Service: 09/24/22 Primary Care Provider: BRIDGER Chief Complaint: NSTEMI, Anemia, Pneumonia Subjective: Improving (Patient is improving doing better) Review of Systems General: Weakness Respiratory: Shortness of Breath Physical Examination - Vital Signs Temperature: 97.9 F Blood Pressure: 129/65 Pulse: 64 Respirations: 16 Pulse Ox (%): 99 - Physical Exam General: Alert, Oriented x3 HEENT: Atraumatic Neck: Supple Respiratory: Clear to auscultation bilaterally, Diminished Assessment And Plan - Current Problems (Diagnosis) (1) COPD (chronic obstructive pulmonary disease) Current Visit: Yes Status: Chronic Plan: Patient is improving continue with bronchodilators White count continues to remain very elevated patient has a normocytic anemia 1 out of 4 culture bottles are positive most likely contaminant add p.o. levofloxacin patient does not seem to be responding to azithromycin and cephalosporin changed over to p.o. levofloxacin and doxycycline Qualifiers: COPD type: unspecified COPD Qualified Code(s): J44.9 - Chronic obstructive pulmonary disease, unspecified (2) NSTEMI (non-ST elevated myocardial infarction) Current Visit: Yes Status: Acute Plan: Troponins are significantly elevated suspect non-STEMI EKGSinus rhythm with premature atrial complexes Left bundle branch block Abnormal ECG Compared to ECG 07/08/2022 10:16:19 Atrial premature complex(es) now present Sinus arrhythmia no longer present Left-axis deviation no longer present (3) Anemia Current Visit: Yes Status: Acute Plan: Unspecified anemia will need a work-up Qualifiers: Other causes of anemia: other cause, not classified (4) Abnormal chest x-ray Current Visit: Yes Status: Acute Plan: Patient has a left upper lobe infiltrate presumed pneumonia follow-up CT scan in about 3 months doubt cancer Physician Review: Patient Assessed, Agree with Above Assessment and Plan
[2022-09-24 12:23] LABS: Hematocrit 25.1 % (39.6-49.0)
[2022-09-24] MEDS: levoFLOXacin 250 MG TAB PO SCH (12:39)
[2022-09-24] MEDS: DOXYCYCLINE 100 MG CAP PO SCH ×2 (12:40→20:18)
--- NOTE | 2022-09-24 12:57 | P.PN ---
Subjective Date of Service: 09/24/22 Primary Care Provider: BRIDGER Chief Complaint: NSTEMI, Anemia, Pneumonia Subjective: No C/O voiced Physical Examination - Vital Signs Temperature: 97.9 F Blood Pressure: 129/65 Pulse: 64 Respirations: 16 Pulse Ox (%): 99 - Physical Exam General: Alert, Oriented x3 HEENT: Atraumatic, Normocephalic Neck: Supple Respiratory: Normal air movement Cardiovascular: Normal pulses, Regular rate/rhythm Gastrointestinal: Soft and benign Neurological: Normal speech Assessment And Plan - Plan Assessment and Plan - Problems (Diagnosis) (1) NSTEMI (non-ST elevated myocardial infarction) Current Visit: Yes Status: Acute (2) Anemia Current Visit: Yes Status: Acute Qualifiers: Anemia type: unspecified type Qualified Code(s): D64.9 - Anemia, unspecified (3) Acute kidney injury superimposed on CKD Current Visit: Yes Status: Acute (4) Pneumonia Current Visit: Yes Status: Acute Qualifiers: Pneumonia type: due to unspecified organism Laterality: bilateral Lung location: lower lobe of lung Qualified Code(s): J18.9 - Pneumonia, unspecified organism (5) Lung mass with liver mets Current Visit: Yes Status: Acute (6) COPD (chronic obstructive pulmonary disease) Current Visit: Yes Status: Chronic Qualifiers: COPD type: unspecified COPD Qualified Code(s): J44.9 - Chronic obstructive pulmonary disease, unspecified (7) AIDS with cachexia; HIV with esophageal candidiasis Current Visit: Yes Status: Chronic (8) DM2 (diabetes mellitus, type 2) Current Visit: Yes Status: Chronic Qualifiers: Diabetes mellitus long term care administrator insulin use: with long term care administrator use Diabetes mellitus complication status: with hyperglycemia Qualified Code(s): E11.65 - Type 2 diabetes mellitus with hyperglycemia; Z79.4 - long term care administrator (current) use of insulin - Plan 1. Consult Infectious Disease. Recommendations noted. awaiting viral load and CD4 count tests. We will continue fluconazole and empiric antibiotics. 2. Continue monitoring H&H. Hemoglobin has stabilized post 2 unit of prc. Hb is 7.9 todays. Patient could have bone marrow suppression from HIV infection. 3. Supportive care for lung malignancy with possible liver metastasis. May check alpha fetoprotein level as well. 4. Strict blood pressure blood sugar control. 5. Echocardiogram pending. Troponin most likely from demand ischemia. We will assess systolic function and wall motion. Cardiology consultation appreciated 6. Long-term prognosis remains poor with multiple conditions with poor prognostic signs. Discharge Plan: Home Plan to discharge in: Greater than 2 days Physician Review: Patient Assessed, Agree with Above Assessment and Plan
[2022-09-24] MEDS: MORPHINE 2 MG/ML SYR IV PRN ×2 (14:09→21:01)
--- NOTE | 2022-09-24 16:27 | P.PN ---
Date of Service: 09/24/22 Chief Complaint: NSTEMI, Anemia, Pneumonia Subjective: No new changes. Patient is awake and fully oriented. No new complaints at this time. No acute events reported overnight. Afebrile. Physical Examination Temp Pulse Resp BP Pulse Ox 97.9 F 64 16 129/65 99 09/24/22 12:57 09/24/22 12:57 09/24/22 12:57 09/24/22 12:57 09/24/22 12:57 General: Alert, In no apparent distress, Oriented x3, Cachectic HEENT: Atraumatic, Other dark/black discoloration of tongue Neck: 2+ carotid pulse no bruit, No Thyromegaly Respiratory: Diminished, Crackles/rales Cardiovascular: No edema, Normal pulses Gastrointestinal: Normal bowel sounds, Non-distended Musculoskeletal: No clubbing, No swelling Integumentary: No rashes, No breakdown Neurological: Normal speech, Normal tone, Normal affect Urinary: Gil catheter draining char[place] colored urine Studies Laboratory Data - Reviewed Microbiology Data - Reviewed Imagings Data: - CT Chest 09/22: "Ill-defined infiltrate is seen posterior left upper lobe and both posterior lower lobes.Spiculated lesion in the posterior left upper lobe measuring 16 mm (image 23/137).Small bilateral pleural effusions.Enlarged lymph nodes are seen in the mediastinum at, largest measuring 2.8 cm in the AP window." Medications List Reviewed: Yes Assessment and Plan Problem List - Coronary Artery Disease - Cachexia - COPD - Diabetes Mellitus Type II - Pneumonia - Anemia - Moderate PCM - HIV - Oral thrush HIV Oral thrush / history of esophageal candidiasis - Patient reports recent diagnosis of HIV about 2 months ago, not on HIV medication. Did not follow up with HIV clinic or oncology as outpatient. - CD4 count and viral load labs ordered, pending - On Fluconazole (started 09/23) Pneumonia COPD - CT Chest 09/22: "Ill-defined infiltrate is seen posterior left upper lobe and both posterior lower lobes. Spiculated lesion in the posterior left upper lobe measuring 16 mm (image 23/137). Small bilateral pleural effusions. Enlarged lymph nodes are seen in the mediastinum at, largest measuring 2.8 cm in the AP window." - Pulmonology on case - Ceftriaxone and Azithromycin switched to Levofloxacin and Doxycycline on 09/24 Blood cultures 09/22: 1 of 4 bottles positive, likely contaminant. Leukocytosis (WBC 23.4). Afebrile, temp 97.9 F Recommendations - Continue Levofloxacin, Doxycycline and Fluconazole for now. - CD4 count and viral load results pending - Obtain sputum culture if possible - Continue supportive care and nutritional support as needed - Monitor WBC and fever trends ID will follow up and monitor patient closely. Case discussed with Gwen Roblero
[2022-09-24] MEDS: FLUCONAZOLE 200mg IVPB 200 MG/100 ML BAG IV SCH (17:08)
[2022-09-24] MEDS: MELATONIN 5 MG TABLET PO PRN (21:01)
--- NOTE | 2022-09-24 22:31 | P.PN ---
Date of Service: 09/24/22 Vital Signs Temp Pulse Resp BP Pulse Ox 97.8 F 60 16 120/81 98 09/24/22 16:00 09/24/22 16:00 09/24/22 16:00 09/24/22 16:00 09/24/22 16:00 Medications Acetaminophen (Acetaminophen 325 Mg Tablet) 650 mg PO Q6H PRN PRN Reason: Pain scale 2-4 (Mild) Last Admin: 09/24/22 11:19 Dose: 650 mg Albuterol Sulfate (Albuterol 2.5 Mg/3 Ml Neb Suyapa) 2.5 mg NEB [id number] PRN PRN Reason: SHORTNESS OF BREATH Arformoterol Tartrate (Arformoterol Tartrate 15 Mcg/2 Ml Vial.Neb) 15 mcg NEB BIDRESP [facility] Last Admin: 09/24/22 08:30 Dose: 15 mcg Aspirin (Aspirin Ec 81 Mg Tab) 81 mg PO DAILY [facility] Last Admin: 09/24/22 09:36 Dose: 81 mg Clonazepam (Clonazepam 0.5 Mg Tab) 0.5 mg PO TID [facility] Last Admin: 09/24/22 20:18 Dose: 0.5 mg Doxycycline Monohydrate (Doxycycline 100 Mg Cap) 100 mg PO BID [facility]; Protocol Last Admin: 09/24/22 20:18 Dose: 100 mg Enteral Nutritional Formula (Glucerna Shake 237 Ml Can) 237 ml PO TID [facility] Last Admin: 09/24/22 20:18 Dose: 237 ml Fluconazole (Diflucan 200 Mg/100 Ml Ivpb (Premix)) 200 mg in 100 mls @ 100 mls/hr IV Q24H [facility]; Protocol Last Admin: 09/24/22 17:08 Dose: 100 mls Sodium Chloride (Sodium Chloride) 250 mls @ 0 mls/hr IV .Q0M ILANA Levofloxacin (Levofloxacin 250 Mg Tab) 500 mg PO DAILY [facility]; Protocol Last Admin: 09/24/22 12:39 Dose: 500 mg Melatonin (Melatonin 5 Mg Tablet) 5 mg PO BEDTIME PRN PRN PRN Reason: INSOMNIA Last Admin: 09/24/22 21:01 Dose: 5 mg Morphine Sulfate (Morphine 2 Mg/Ml Syr) 2 mg IV Q4H PRN PRN Reason: Pain scale 8-10 (Severe) Last Admin: 09/24/22 21:01 Dose: 2 mg Nystatin (Nystatin 500,000 Unit/5 Ml Udc) 500,000 unit PO QID [facility] Last Admin: 09/24/22 20:18 Dose: 500,000 unit Ondansetron HCl (Ondansetron 4 Mg/2 Ml Vial) 4 mg IV Q6HP PRN PRN Reason: NAUSEA / VOMITING Prednisone (Prednisone 20 Mg Tab) 20 mg PO BID [facility] Last Admin: 09/24/22 20:18 Dose: 20 mg Sodium Chloride (Flush Normal Saline 10 Ml) 10 ml IV BID [facility] Last Admin: 09/24/22 20:19 Dose: 10 ml Lab Results (last 24 hrs) 09/22/22 19:00: ABO/Rh O POSITIVE, Solid Phase Ab Screen Negative, Crossmatch See Detail Microbiology Results 09/22/22 20:20 Blood - Blood Aerobic Blood Culture - Preliminary 09/22/22 20:20 Blood - Blood Anaerobic Blood Culture - Preliminary No growth in 24 hours. 09/22/22 20:00 Blood - Blood Aerobic Blood Culture - Preliminary No growth in 24 hours. 09/22/22 20:00 Blood - Blood Anaerobic Blood Culture - Preliminary No growth in 24 hours. Assessment/ Plan: Nephrology No dyspnea No chest pain +Appetite No acute events overnight Vitals, medications, blood work and imaging reviewed in the chart. General: In no apparent distress, Oriented x3, Cooperative HEENT: Atraumatic Neck: Supple Respiratory: Normal air movement Cardiovascular: No edema, Regular rate/rhythm Gastrointestinal: Soft and benign, Non-distended Musculoskeletal: No clubbing, No contractures Integumentary: No rashes, No cyanosis Neurological: Normal speech Blood work reviewed in the chart Imagings Data: [id number] [facility]18 [facility] CLINICAL HISTORY: dyspnea COMPARISON: Chest Single View dated 09/22/2022; Chest Single View dated 07/08/2022; Chest Single View dated 11/11/2020; Chest Single View dated 07/02/2020 TECHNIQUE: Portable AP view of the chest. FINDINGS: Progressive patchy central and basilar airspace opacities bilaterally. Elevation of the right hemidiaphragm again noted. No pneumothorax or effusion. The cardiomediastinal contours are unremarkable. IMPRESSION: Progressive patchy central and basilar airspace opacities, may reflect worsening edema or superimposed pneumonia. [id number] EXAM DESCRIPTION: CT - Chest Abd Pelvis Wo Con - 09/22/2022 8:26 pm CLINICAL HISTORY: Chest and abdomen pain. MALAISE COMPARISON: <Comparisons> TECHNIQUE: Limited noncontrast study was performed. All CT scans are performed using dose optimization technique as appropriate and may include automated exposure control or mA/KV adjustment according to patient size. FINDINGS: Ill-defined infiltrate is seen posterior left upper lobe and both posterior lower lobes.Spiculated lesion in the posterior left upper lobe measuring 16 mm (image 23/137).Small bilateral pleural effusions.Enlarged lymph nodes are seen in the mediastinum at, largest measuring 2.8 cm in the AP window. The liver, spleen, pancreas, adrenal glands and kidneys are within normal limits. Cholelithiasis. No bowel obstruction, free air, free fluid or abscess. Mild stool is retained throughout the colon. Normal appendix. No pathologic lymphadenopathy in the abd omen or pelvis. No worrisome osseous finding. IMPRESSION: Poorly defined spiculated lesion measuring 16 mm in the posterior left upper lobe.Given the adenopathy in the mediastinum, further workup is warranted. Recommend follow-up PET-CT for further evaluation. Ill-defined opacities in both lung bases with small pleural effusion probably atelectasis or infiltrate. Cholelithiasis. Conclusions/Impression: Stage I LIANNA improving CKD III with proteinuria -No NSAIDs Hypokalemia -Replete potassium prn HTN with CKD -Monitor BP DM II with CKD -Wean steroids as tolerated -Consider RISS Anemia in chronic illness Iron Deficiency -Transfuse PRBC prn -Consider IV iron HIV/ AIDS Oral thrush -ID following
[2022-09-25 03:37] LABS: Absolute Lymphocytes (CBC) 2.7 K/uL (0.7-4.9); Hematocrit 24.7 % (39.6-49.0); Lymphocytes % 11.5 % (15.3-44.8); MCV 86.2 fL (80-100); MPV 8.7 fL (7.6-11.3); RBC Red Blood Cell Count 2.87 M/uL (4.33-5.43)
[2022-09-25 04:05] LABS: Potassium 4.5 mEq/L (3.5-5.1)
--- NOTE | 2022-09-25 06:57 | ECHO ---
HEIGHT: 6 ft 0 in WEIGHT: 136 lb 1.6 oz DATE OF STUDY: 09/24/[address]: Arnold Estes MD 2-DIMENSIONAL: YES M.MODE: YES DOPPLER: YES COLOR FLOW: YES TDS: PORTABLE: YES DEFINITY: BUBBLE STUDY: DIAGNOSIS: NON ST ELEVATION MYOCARDIAL INFARCTION CARDIAC HISTORY: CATHERIZATION: NO SURGERY: NO PROSTHETIC VALVE: NO PACEMAKER: NO MEASUREMENTS (cm) DIASTOLIC (NORMALS) SYSTOLIC (NORMALS) IVSd 1.2 (0.6-1.2) LA Diam 3.0 (1.9-4.0) LVEF 35% LVIDd 5.9 (3.5-5.7) LVIDs 4.9 (2.0-3.5) %FS 17% LVPWd 1.3 (0.6-1.2) Ao Diam 3.3 (2.0-3.7) 2 DIMENSIONAL ASSESSMENT: RIGHT ATRIUM: NORMAL LEFT ATRIUM: NORMAL RIGHT VENTRICLE: NORMAL LEFT VENTRICLE: NORMAL SIZE TRICUSPID VALVE: NORMAL MITRAL VALVE: NORMAL PULMONIC VALVE: NORMAL AORTIC VALVE: NORMAL PERICARDIAL EFFUSION: NONE AORTIC ROOT: NORMAL LEFT VENTRICULAR WALL MOTION: MODERATE TO SEVERE GLOBAL HYPOKINESIS DOPPLER/COLOR FLOW: MILD MITRAL REGURGITATION, TRICUSPID REGURGITATION. NORMAL RIGHT VENTRICULAR SYSTOLIC PRESSURE. COMMENTS: 1. MILD MITRAL REGURGITATION, TRICUSPID REGURGITATION 2. EJECTION FRACTION 35% 3. MODERATE TO SEVERE GLOBAL HYPOKINESIS TECHNOLOGIST: PRADEEP ROMERO
[2022-09-25] MEDS: ARFORMOTEROL TARTRATE 15 MCG/2 ML VIAL.NEB NEB SCH ×2 (08:10→21:00)
[2022-09-25] MEDS: levoFLOXacin 250 MG TAB PO SCH (09:00)
[2022-09-25] MEDS: GLUCERNA SHAKE 237 ML CAN PO SCH ×3 (09:00→20:55)
[2022-09-25] MEDS: predniSONE 20 MG TAB PO SCH ×2 (09:00→20:55)
[2022-09-25] MEDS: DOXYCYCLINE 100 MG CAP PO SCH ×2 (09:19→20:54)
[2022-09-25] MEDS: clonazePAM 0.5 MG TAB PO SCH ×3 (09:19→20:55)
[2022-09-25] MEDS: ASPIRIN EC 81 MG TAB PO SCH (09:19)
[2022-09-25] MEDS: levoFLOXacin 750 MG TAB PO SCH (11:00)
--- NOTE | 2022-09-25 11:22 | CON ---
Date of Consultation: 09/23/2022 Reason For Consultation: Elevated troponin. History Of Present Illness: Mr. Burch is 77. Came in with anemia of 6.4, transfusion is pending, creatinine is 1.4, left bundle-branch block, chest x-ray showed mild congestive heart failure, CT sc an showed lymphadenopathy in the mediastinum and left upper lobe mass. Troponin was 629. Echocardio gram is pending. Main symptoms were dizziness, weakness, and fatigue. Denied any chest pain or sync ope. Denied any palpitations, fever, or chills. Past Medical History: Includes anemia, anxiety, Carter esophagus, diabetes, COPD, depression, HIV p ositive, and dyslipidemia. Allergies: NONE. Review of Systems: Negative. Social History: Negative. Family History: Negative. Medications: Listed by Dr. García. Physical Examination: General: He appeared to be weak, slightly obtunded. Vital Signs: Stable, afebrile, sinus rhythm. HEENT: Negative. Neck: Supple without bruit, lymphadenopathy, JVD, or thyromegaly. Chest: Revealed bilateral rales. Cardiac: Revealed sinus rhythm. No murmurs, gallops, or rubs. Abdomen: Benign. Extremities: Revealed no clubbing, cyanosis. He had trace edema. Diagnostic Data: Listed earlier. Impression And Plan: 1.Severe anemia causing dizziness, weakness, shortness of breath. Needs to be transfused. 2.Human immunodeficiency virus positive. 3.Possible pneumonia. 4.Lung mass with mediastinal lymph node. PET scan needs to be done. 5.Elevated troponin secondary to demand ischemia from anemia, pneumonia. 6.He has a history of diabetes, chronic obstructive pulmonary disease, depression, dyslipidemia. Th rachel are well controlled. Cardiovascular oneil, I think an echocardiogram is pending. Transfusion is pending. He should have his lung worked up with PET scan. Therefore, they have no plan to perform a ny coronary intervention at this point. We will continue to follow. EPIFANIO/BENITO Voice ID: [id number] Report ID: [id number]
--- NOTE | 2022-09-25 11:52 | PN ---
Date of Progress Note: 09/24/2022 Mr. Burch had came in with anemia, elevated troponin, dizziness, pneumonia, abnormal lung x-ray wi th lymph lymphadenopathy in the mediastinum and left upper lobe mass. PET scan is pending sometime d own the road. Transfusion had occurred. Troponin is elevated secondary to demand ischemia. Echocar diogram showed [id number] global hypokinesis with an ejection fraction about 35%. This is ne w diagnosis for Mr. Burch. Once his creatinine and hemoglobin stabilized, he should be on low-dos e beta-cynthia, diuretic, and an PAMELLA inhibitor. I will sign off his case for now. He will need to f ollow up with us in the office in the near future. EPIFANIO/BENITO Voice ID: [id number] Report ID: [id number]
[2022-09-25] MEDS: NYSTATIN 500,000 UNIT/5 ML UDC PO SCH ×4 (13:00→20:54)
--- NOTE | 2022-09-25 13:34 | P.PN ---
Subjective Date of Service: 09/25/22 Primary Care Provider: BRIDGER Chief Complaint: NSTEMI, Anemia, Pneumonia Subjective: No new changes Physical Examination - Vital Signs Temperature: 98 F Blood Pressure: 129/73 Pulse: 75 Respirations: 24 Pulse Ox (%): 92 - Physical Exam General: Alert, Oriented x3 HEENT: Atraumatic, Normocephalic Neck: Supple Respiratory: Normal air movement Cardiovascular: Regular rate/rhythm Assessment And Plan - Plan Assessment and Plan - Problems (Diagnosis) (1) NSTEMI (non-ST elevated myocardial infarction) Current Visit: Yes Status: Acute (2) Anemia Current Visit: Yes Status: Acute Qualifiers: Anemia type: unspecified type Qualified Code(s): D64.9 - Anemia, unspecified (3) Acute kidney injury superimposed on CKD Current Visit: Yes Status: Acute (4) Pneumonia Current Visit: Yes Status: Acute Qualifiers: Pneumonia type: due to unspecified organism Laterality: bilateral Lung location: lower lobe of lung Qualified Code(s): J18.9 - Pneumonia, unspecified organism (5) Lung mass with liver mets Current Visit: Yes Status: Acute (6) COPD (chronic obstructive pulmonary disease) Current Visit: Yes Status: Chronic Qualifiers: COPD type: unspecified COPD Qualified Code(s): J44.9 - Chronic obstructive pulmonary disease, unspecified (7) AIDS with cachexia; HIV with esophageal candidiasis Current Visit: Yes Status: Chronic (8) DM2 (diabetes mellitus, type 2) Current Visit: Yes Status: Chronic Qualifiers: Diabetes mellitus jail insulin use: with jail use Diabetes mellitus complication status: with hyperglycemia Qualified Code(s): E11.65 - Type 2 diabetes mellitus with hyperglycemia; Z79.4 - roasterman (current) use of insulin - Plan 1. Consult Infectious Disease. Recommendations noted. awaiting viral load and CD4 count tests. We will continue fluconazole and empiric antibiotics. 2. Continue monitoring H&H. Hemoglobin has stabilized post 2 unit of prc. Hb is 7.9 todays. Patient could have bone marrow suppression from HIV infection. 3. Supportive care for lung malignancy with possible liver metastasis. May check alpha fetoprotein level as well. 4. Strict blood pressure blood sugar control. 5. Echocardiogram pending. Troponin most likely from demand ischemia. We will assess systolic function and wall motion. Cardiology consultation appreciated 6. Long-term prognosis remains poor with multiple conditions with poor progn ostic signs. Discharge Plan: Home Plan to discharge in: Greater than 2 days Physician Review: Patient Assessed, Agree with Above Assessment and Plan
--- NOTE | 2022-09-25 15:13 | P.PN ---
Date of Service: 09/25/22 Chief Complaint: NSTEMI, Anemia, Pneumonia Subjective: No new changes. Patient is awake and fully oriented. No new complaints at this time. Physical Examination Temp Pulse Resp BP Pulse Ox 98 F 75 24 H 129/73 92 09/25/22 13:41 09/25/22 13:41 09/25/22 13:41 09/25/22 13:41 09/25/22 13:41 General: Alert, In no apparent distress, Oriented x3, Cachectic HEENT: Atraumatic, normocephalic. Missing teeth. Neck: 2+ carotid pulse no bruit, No Thyromegaly Respiratory: Diminished, Crackles/rales. On 2L NC Cardiovascular: No edema, Normal pulses Gastrointestinal: Normal bowel sounds, Non-distended Musculoskeletal: No clubbing, No swelling Integumentary: Left foot 5th toe plantar aspect black/necrotic tissue. Onychomycosis. Neurological: Normal speech, Normal tone, Normal affect Urinary: Gil catheter draining charlotte colored urine Studies Laboratory Data - Reviewed Microbiology Data - Reviewed Imagings Data: - CT Chest 09/22: "Ill-defined infiltrate is seen posterior left upper lobe and both posterior lower lobes.Spiculated lesion in the posterior left upper lobe measuring 16 mm (image 23/137).Small bilateral pleural effusions.Enlarged lymph nodes are seen in the mediastinum at, largest measuring 2.8 cm in the AP window." Medications List Reviewed: Yes Assessment and Plan Problem List - Coronary Artery Disease - Cachexia - COPD - Diabetes Mellitus Type II - Pneumonia - Anemia - Moderate PCM - HIV - Oral thrush HIV Oral thrush / history of esophageal candidiasis - Patient reports recent diagnosis of HIV about 2 months ago, not on HIV medication. Did not follow up with HIV clinic or oncology as outpatient. - CD4 count and viral load labs ordered, pending - On Fluconazole (started 09/23) Pneumonia COPD - CT Chest 09/22: "Ill-defined infiltrate is seen posterior left upper lobe and both posterior lower lobes. Spiculated lesion in the posterior left upper lobe measuring 16 mm (image 23/137). Small bilateral pleural effusions. Enlarged lymph nodes are seen in the mediastinum at, largest measuring 2.8 cm in the AP window." - Pulmonology on case - Ceftriaxone and Azithromycin switched to Levofloxacin and Doxycycline on 09/24 Blood cultures 5/21: No growth to date Leukocytosis (WBC 23.4). Afebrile Recommendations - Consult podiatry for evaluation of left foot 5th toe. Continue empiric antibiotics Levofloxacin, Doxycycline and Fluconazole for now. - CD4 count and viral load results pending. Outpatient HIV specialist follow up for ART - Continue supportive care and nutritional support as needed - Monitor WBC and fever trends ID will follow up and monitor patient closely. Case discussed with Gwen Roblero
--- NOTE | 2022-09-25 16:12 | P.PN ---
Nephrology note (S) Pt acknowledges some continued cough, remains on O2, no acute resp distress, no N/V/D, wanting diet changed Vitals, medications, blood work and imaging reviewed in the chart. General: Thin, chronically ill appearing HEENT: Atraumatic, scleral icterus, LFNC Neck: Supple Respiratory: b/l air entry, exp wheezes Cardiovascular: No sig edema, Regular rate/rhythm Gastrointestinal: Soft, scaphoid, NT Musculoskeletal: Muscle mass loss, no sig LE edema Integumentary: No rashes Neurological: Normal speech, awake, alert Blood work reviewed in the chart Conclusions/Impression: -Stage 1 LIANNA on admission, now resolved. Prior LIANNA episodes. Cont to monitor closely. UA was not too impressive -D/c maintenance IVF -NSTEMI, cardiomyopathy unspecified with LVEF dysfunction As renal function has recovered, pt should be able to tolerate a BAHMAN inhibitor, will defer to Cardiology -Acute on chronic resp failure PNA unspecified organism +/- pulm vascular congestion, underlying COPD Management per pulm/IM Rodriguez Blunt MD, ELVIS
[2022-09-25] MEDS ORDERED: NA CHLORIDE 0.9% 100 ML ONE (17:17)
[2022-09-25 17:45] LABS: Calcium Oxalate Crystals- Ur Few /HPF (None Seen); Specific Gravity 1.015 (1.005-1.030); Urine Bacteria <20 /HPF (<20); Urine Bilirubin NEGATIVE (Negative); Urine Blood 3+ (OVER) (Negative); Urine Clarity Clear (Clear); Urine Color Light-Yellow (Yellow); Urine Glucose NEGATIVE (Negative); Urine Mucus Slight /HPF (None Seen); Urine Protein TRACE (Negative); Urine RBC >50 /HPF (None Seen); Urine Urobilinogen Normal (Normal)
[2022-09-25] MEDS: FLUCONAZOLE 200mg IVPB 200 MG/100 ML BAG IV SCH ×2 (18:00→20:53)
[2022-09-25] MEDS: MORPHINE 2 MG/ML SYR IV PRN (18:27)
[2022-09-26 04:09] LABS: Absolute Lymphocytes (CBC) 3.8 K/uL (0.7-4.9); MCV 86.2 fL (80-100); MPV 8.8 fL (7.6-11.3); RBC Red Blood Cell Count 3.14 M/uL (4.33-5.43)
[2022-09-26 04:15] LABS: Potassium 4.3 mEq/L (3.5-5.1)
[2022-09-26 07:37] LABS: Blood Morphology Comment NOTED (NOT SEEN); Platelet Estimate ADEQ
[2022-09-26 07:43] LABS: Anisocytosis 1+; Basophilic Stippling 2+; Polychromasia SLIGHT
[2022-09-26] MEDS: ARFORMOTEROL TARTRATE 15 MCG/2 ML VIAL.NEB NEB SCH ×2 (08:28→20:05)
--- NOTE | 2022-09-26 08:45 | P.PN ---
Subjective Date of Service: 09/26/22 Primary Care Provider: BRIDGER Chief Complaint: NSTEMI, Anemia, Pneumonia Subjective: No new changes Physical Examination - Vital Signs Temperature: 97.2 F Blood Pressure: 151/87 Pulse: 86 Respirations: 16 Pulse Ox (%): 94 - Physical Exam General: Alert HEENT: Atraumatic, Normocephalic Neck: Supple Respiratory: Normal air movement Cardiovascular: Regular rate/rhythm, Normal S1 S2 Gastrointestinal: Soft and benign Neurological: Normal speech Assessment And Plan - Plan Assessment and Plan - Problems (Diagnosis) (1) NSTEMI (non-ST elevated myocardial infarction) Current Visit: Yes Status: Acute (2) Anemia Current Visit: Yes Status: Acute Qualifiers: Anemia type: unspecified type Qualified Code(s): D64.9 - Anemia, unspecified (3) Acute kidney injury superimposed on CKD Current Visit: Yes Status: Acute (4) Pneumonia Current Visit: Yes Status: Acute Qualifiers: Pneumonia type: due to unspecified organism Laterality: bilateral Lung location: lower lobe of lung Qualified Code(s): J18.9 - Pneumonia, unspecified organism (5) Lung mass with liver mets Current Visit: Yes Status: Acute (6) COPD (chronic obstructive pulmonary disease) Current Visit: Yes Status: Chronic Qualifiers: COPD type: unspecified COPD Qualified Code(s): J44.9 - Chronic obstructive pulmonary disease, unspecified (7) AIDS with cachexia; HIV with esophageal candidiasis Current Visit: Yes Status: Chronic (8) DM2 (diabetes mellitus, type 2) Current Visit: Yes Status: Chronic Qualifiers: Diabetes mellitus long term care social worker insulin use: with long term care social worker use Diabetes mellitus complication status: with hyperglycemia Qualified Code(s): E11.65 - Type 2 diabetes mellitus with hyperglycemia; Z79.4 - technician terminal and repeater (current) use of insulin - Plan 1. Consult Infectious Disease. Recommendations noted. awaiting viral load and CD4 count tests. We will continue fluconazole and empiric antibiotics. 2. Continue monitoring H&H. Hemoglobin has stabilized post 2 unit of prc. Hb is 7.9 todays. Patient could have bone marrow suppression from HIV infection. 3. Supportive care for lung malignancy with possible liver metastasis. May check alpha fetoprotein level as well. 4. Strict blood pressure blood sugar control. 5. Echocardiogram pending. Troponin most likely from demand ischemia. We will assess systolic function and wall motion. Cardiology consultation appreciated 6. Long-term prognosis remains poor with multiple conditions with poor prognostic signs. Discharge Plan: Home Plan to discharge in: Greater than 2 days Physician Review: Patient Assessed, Agree with Above Assessment and Plan
[2022-09-26] MEDS: GLUCERNA SHAKE 237 ML CAN PO SCH ×3 (09:00→21:00)
[2022-09-26] MEDS: DOXYCYCLINE 100 MG CAP PO SCH ×2 (09:38→21:00)
[2022-09-26] MEDS: clonazePAM 0.5 MG TAB PO SCH ×3 (09:38→20:59)
[2022-09-26] MEDS: predniSONE 20 MG TAB PO SCH ×2 (09:38→21:00)
[2022-09-26] MEDS: ASPIRIN EC 81 MG TAB PO SCH (09:38)
[2022-09-26] MEDS: NYSTATIN 500,000 UNIT/5 ML UDC PO SCH ×4 (09:39→20:59)
[2022-09-26] MEDS: levoFLOXacin 750 MG TAB PO SCH (09:39)
--- NOTE | 2022-09-26 10:04 | P.PN ---
Date of Service: 09/26/22 Chief Complaint: NSTEMI, Anemia, Pneumonia Subjective: No acute events reported overnight. Patient in bed, A&Ox4. Gangrenous changes of left foot 5th toe. Physical Examination Temp Pulse Resp BP Pulse Ox 97.2 F 86 16 151/87 H 94 09/26/22 08:45 09/26/22 08:45 09/26/22 08:45 09/26/22 08:45 09/26/22 08:45 General: Alert, In no apparent distress, Oriented x4, Cachectic HEENT: Atraumatic, normocephalic. Missing teeth. oral thrush improving. Neck: 2+ carotid pulse no bruit, No Thyromegaly Respiratory: Diminished, Crackles/rales. On 2L NC Cardiovascular: No edema, Normal pulses Gastrointestinal: Normal bowel sounds, Non-distended Musculoskeletal: No clubbing, No swelling Integumentary: Left foot 5th toe plantar aspect with gangreous changes. Onychomycosis. Neurological: Normal speech, Normal tone, Normal affect Studies Laboratory Data - Reviewed Microbiology Data - Reviewed Imagings Data: - CT Chest 09/22: "Ill-defined infiltrate is seen posterior left upper lobe and both posterior lower lobes.Spiculated lesion in the posterior left upper lobe measuring 16 mm (image 23/137). Small bilateral pleural effusions.Enlarged lymph nodes are seen in the mediastinum at, largest measuring 2.8 cm in the AP window." Medications List Reviewed: Yes Assessment and Plan Problem List - Coronary Artery Disease - Cachexia - COPD - Diabetes Mellitus Type II - Pneumonia - Anemia - Moderate PCM - HIV - Oral thrush HIV Oral Thrush - Patient reports recent diagnosis of HIV about 2 months ago, not on HIV medication. Did not follow up with HIV clinic or oncology as outpatient. - CD4 count and viral load labs ordered, pending. - On Fluconazole (started 09/23) Pneumonia Lung Mass - CT Chest 09/22: "Ill-defined infiltrate is seen posterior left upper lobe and both posterior lower lobes. Spiculated lesion in the posterior left upper lobe measuring 16 mm (image 23/137). Small bilateral pleural effusions. Enlarged lymph nodes are seen in the mediastinum at, largest measuring 2.8 cm in the AP window." - Pulmonology on case - On Levofloxacin and Doxycycline (started 09/24) Hgb 8.2, Plt 92 Leukocytosis worsening (WBC 23.4 -> 31.7 -on 09/26). Afebrile. Urinalysis 09/25 with >50 RBC Recommendations - Obtain MRI left foot and consult general surgery or podiatry for evaluation of left foot 5th toe gangrenous changes - Continue empiric antibiotics Levofloxacin, Doxycycline and Fluconazole for now. - HIV: CD4 count and viral load results pending. Will also need resistance testing. Not on ART - Continue supportive care and nutritional support as needed - Monitor WBC and fever trends ID will follow up and monitor patient closely. Case discussed with Gwen Roblero
--- NOTE | 2022-09-26 11:16 | P.PN ---
Date of Service: 09/26/22 Vital Signs Temp Pulse Resp BP Pulse Ox 97.2 F 86 16 151/87 H 94 09/26/22 08:45 09/26/22 08:45 09/26/22 08:45 09/26/22 08:45 09/26/22 08:45 Medications Acetaminophen (Acetaminophen 325 Mg Tablet) 650 mg PO Q6H PRN PRN Reason: Pain scale 2-4 (Mild) Last Admin: 09/24/22 11:19 Dose: 650 mg Albuterol Sulfate (Albuterol 2.5 Mg/3 Ml Neb [place]) 2.5 mg NEB [id number] PRN PRN Reason: SHORTNESS OF BREATH Arformoterol Tartrate (Arformoterol Tartrate 15 Mcg/2 Ml Vial.Neb) 15 mcg NEB BIDRESP [facility] Last Admin: 09/26/22 08:28 Dose: 15 mcg Aspirin (Aspirin Ec 81 Mg Tab) 81 mg PO DAILY [facility] Last Admin: 09/26/22 09:38 Dose: 81 mg Clonazepam (Clonazepam 0.5 Mg Tab) 0.5 mg PO TID [facility] Last Admin: 09/26/22 09:38 Dose: 0.5 mg Doxycycline Monohydrate (Doxycycline 100 Mg Cap) 100 mg PO BID [facility]; Protocol Last Admin: 09/26/22 09:38 Dose: 100 mg Enteral Nutritional Formula (Glucerna Shake 237 Ml Can) 237 ml PO TID [facility] Last Admin: 09/26/22 09:00 Dose: 237 ml Fluconazole (Diflucan 200 Mg/100 Ml Ivpb (Premix)) 200 mg in 100 mls @ 100 mls/hr IV Q24H [facility]; Protocol Last Admin: 09/25/22 18:00 Dose: Not Given Sodium Chloride (Sodium Chloride) 250 mls @ 0 mls/hr IV .Q0M [facility] Last Admin: 09/25/22 20:56 Dose: 250 mls Levofloxacin (Levofloxacin 750 Mg Tab) 750 mg PO Q48H [facility]; Protocol Last Admin: 09/26/22 09:39 Dose: 750 mg Melatonin (Melatonin 5 Mg Tablet) 5 mg PO BEDTIME PRN PRN PRN Reason: INSOMNIA Last Admin: 09/24/22 21:01 Dose: 5 mg Morphine Sulfate (Morphine 2 Mg/Ml Syr) 2 mg IV Q4H PRN PRN Reason: Pain scale 8-10 (Severe) Last Admin: 09/25/22 18:27 Dose: 2 mg Nystatin (Nystatin 500,000 Unit/5 Ml Udc) 500,000 unit PO QID [facility] Last Admin: 09/26/22 09:39 Dose: 500,000 unit Ondansetron HCl (Ondansetron 4 Mg/2 Ml Vial) 4 mg IV Q6HP PRN PRN Reason: NAUSEA / VOMITING Last Admin: 09/25/22 22:19 Dose: 4 mg Prednisone (Prednisone 20 Mg Tab) 20 mg PO BID [facility] Last Admin: 09/26/22 09:38 Dose: 20 mg Sodium Chloride (Flush Normal Saline 10 Ml) 10 ml IV BID [facility] Last Admin: 09/25/22 20:55 Dose: 10 ml Microbiology Results 09/22/22 20:20 Blood - Blood Aerobic Blood Culture - Preliminary 09/22/22 20:20 Blood - Blood Anaerobic Blood Culture - Preliminary No growth in 24 hours. 09/22/22 20:00 Blood - Blood Aerobic Blood Culture - Preliminary No growth in 24 hours. 09/22/22 20:00 Blood - Blood Anaerobic Blood Culture - Preliminary No growth in 24 hours. Assessment/ Plan: Nephrology No dyspnea No chest pain +Appetite No acute events overnight Vitals, medications, blood work and imaging reviewed in the chart. General: In no apparent distress, Oriented x3, Cooperative HEENT: Atraumatic Neck: Supple Respiratory: Normal air movement Cardiovascular: No edema, Regular rate/rhythm Gastrointestinal: Soft and benign, Non-distended Musculoskeletal: No clubbing, No contractures Integumentary: No rashes, No cyanosis Neurological: Normal speech Blood work reviewed in the chart Imagings Data: [id number] [facility] CLINICAL HISTORY: dyspnea COMPARISON: Chest Single View dated 09/22/2022; Chest Single View dated 07/08/2022; Chest Single View dated 11/11/2020; Chest Single View dated 07/02/2020 TECHNIQUE: Portable AP view of the chest. FINDINGS: Progressive patchy central and basilar airspace opacities bilaterally. Elevation of the right hemidiaphragm again noted. No pneumothorax or effusion. The cardiomediastinal contours are unremarkable. IMPRESSION: Progressive patchy central and basilar airspace opacities, may reflect worsening edema or superimposed pneumonia. [id number] EXAM DESCRIPTION: CT - Chest Abd Pelvis Wo Con - 09/22/2022 8:26 pm CLINICAL HISTORY: Chest and abdomen pain. MALAISE COMPARISON: <Comparisons> TECHNIQUE: Limited noncontrast study was performed. All CT scans are performed using dose optimization technique as appropriate and may include automated exposure control or mA/KV adjustment according to patient size. FINDINGS: Ill-defined infiltrate is seen posterior left upper lobe and both posterior lower lobes.Spiculated lesion in the posterior left upper lobe measuring 16 mm (image 23/137).Small bilateral pleural effusions.Enlarged lymph nodes are seen in the mediastinum at, largest measuring 2.8 cm in the AP window. The liver, spleen, pancreas, adrenal glands and kidneys are within normal limits. Cholelithiasis. No bowel obstruction, free air, free fluid or abscess. Mild stool is retained throughout the colon. Normal appendix. No pathologic lymphadenopathy in the abdomen or pelvis. No worrisome osseous finding. IMPRESSION: Poorly defined spiculated lesion measuring 16 mm in the posterior left upper lobe.Given the adenopathy in the mediastinum, further workup is warranted. Recommend follow-up PET-CT for further evaluation. Ill-defined opacities in both lung bases with small pleural effusion probably atelectasis or infiltrate. Cholelithiasis. Conclusions/Impression: Stage I LIANNA improving CKD III with proteinuria -No NSAIDs Hypokalemia -Replete potassium prn HTN with CKD Episodic Tachycardia -Start Metoprolol XL 25mg daily DM II with CKD -Wean steroids as tolerated -Start Alogliptan Anemia in chronic illness Iron Deficiency -Transfuse PRBC prn -Consider IV iron HIV/ AIDS Oral thrush -ID following Case reviewed with Dr. Wheat
[2022-09-26] MEDS: METOPROLOL XL 25 MG TAB PO SCH (12:00)
[2022-09-26] MEDS: ALOGLIPTIN BENZOATE 12.5 MG TABLET PO SCH (14:45)
[2022-09-26] MEDS: MORPHINE 2 MG/ML SYR IV PRN (17:01)
[2022-09-26] MEDS: FLUCONAZOLE 200mg IVPB 200 MG/100 ML BAG IV SCH (17:02)
[2022-09-27 06:05] LABS: MCV 86.7 fL (80-100); MPV 8.4 fL (7.6-11.3); RBC Red Blood Cell Count 3.01 M/uL (4.33-5.43)
[2022-09-27] MEDS: METOPROLOL XL 25 MG TAB PO SCH (06:18)
[2022-09-27 06:28] LABS: Albumin 2.8 g/dL (3.4-5.0); Bilirubin Total 0.6 mg/dL (0.2-1.0); Potassium 4.4 mEq/L (3.5-5.1); Protein, Total 6.2 g/dL (6.4-8.2)
[2022-09-27 07:24] LABS: Platelet Estimate DECR
[2022-09-27 07:25] LABS: Blood Morphology Comment NOTED (NOT SEEN)
[2022-09-27 07:26] LABS: Anisocytosis 1+; Basophilic Stippling 2+; Polychromasia 1+
--- NOTE | 2022-09-27 08:21 | RAD REPORT ---
EXAM DESCRIPTION: [facility] Single View09/27/2022 6:40 am CLINICAL HISTORY: Chest pain COMPARISON: September 22, 2022 FINDINGS: Bibasilar lung opacities have partially resolved. The heart remains enlarged IMPRESSION: Improvement in the mild bibasilar pneumonia
[2022-09-27] MEDS ORDERED: ALOGLIPTIN BENZOATE 6.25 MG TABLET PO SCH (09:00)
[2022-09-27] MEDS: clonazePAM 0.5 MG TAB PO SCH ×2 (09:33→13:20)
[2022-09-27] MEDS: predniSONE 20 MG TAB PO SCH (09:33)
[2022-09-27] MEDS: ALOGLIPTIN BENZOATE 12.5 MG TABLET PO SCH (09:33)
[2022-09-27] MEDS: NYSTATIN 500,000 UNIT/5 ML UDC PO SCH ×3 (09:33→16:28)
[2022-09-27] MEDS: DOXYCYCLINE 100 MG CAP PO SCH (09:33)
[2022-09-27] MEDS: GLUCERNA SHAKE 237 ML CAN PO SCH ×2 (09:34→13:18)
[2022-09-27] MEDS: ASPIRIN EC 81 MG TAB PO SCH (09:34)
[2022-09-27] MEDS: ACETAMINOPHEN 325 MG TABLET PO PRN (10:32)
[2022-09-27] MEDS: ARFORMOTEROL TARTRATE 15 MCG/2 ML VIAL.NEB NEB SCH (11:24)
--- NOTE | 2022-09-27 11:57 | P.PN ---
Nephrology note (S) Renal function tests improved, but pt cont to have leukocytosis, reports not feeling any better Vitals, medications, blood work and imaging reviewed in the chart. General: Thin, chronically ill appearing HEENT: Atraumatic, scleral icterus, LFNC Neck: Supple Respiratory: b/l air entry, poor effort, no sig rhonchi Cardiovascular: No sig edema, Regular rate/rhythm Gastrointestinal: Soft, scaphoid, NT Musculoskeletal: Muscle mass loss, no sig LE edema Integumentary: No rashes, dyshydrioitic nails Neurological: Normal speech, awake, alert Blood work reviewed in the chart Conclusions/Impression: -Stage 1 LIANNA on admission, now resolved. Prior LIANNA episodes. Cont to monitor closely. UA was not too impressive -D/c'ed maintenance IVF early on, d/c hernandez -NSTEMI, cardiomyopathy unspecified with LVEF dysfunction As renal function has recovered, pt should be able to tolerate a BAHMAN inhibitor, will defer to Cardiology or IM service as BP has been mod elevated -Acute on chronic resp failure PNA unspecified organism +/- pulm vascular congestion, underlying COPD Management per pulm/IM Rodriguez Blunt MD, ELVIS
[2022-09-27 13:00] VITALS: O2SAT 90
[2022-09-27] MEDS: FLUCONAZOLE 200mg IVPB 200 MG/100 ML BAG IV SCH (16:29)
[2022-09-27 17:18] VITALS: BP 146/73; TEMP 96.8
--- NOTE | 2022-09-27 22:44 | PN ---
Subjective: The patient is walking better with the help of physical therapy. Objective: Vital Signs: Reviewed. Lungs: Basal crackles. Heart: S1, S2 regular. Abdomen: Soft, nontender. Bowel sounds present. Extremities: Muscle wasting noted. Laboratory Data: Reviewed. Assessment And Plan: Human Immunodeficiency Virus disease. Lung mass needs to be evaluated by Pulmo nary Team. The patient needs to see HIV doctor as outpatient. Leukocytosis, currently on doxy and L evaquin. We will follow the patient as needed. NF/MODL Voice ID: [id number] Report ID: [id number]
== END 2022-09-27 17:52 | disposition hospice, home (50) | DRG 974 ==
LOC: ER 18:17 → ERHOLD 21:30 → 2ND 23:02
PROVIDERS: ADMIT Hospitalist; ATTEND Hospitalist
PROC: 30233N1 Transfusion of Nonautologous Red Blood Cells into Peripheral Vein, Percutaneous Approach (ICD-10-PCS; principal; 2022-09-22)
DX: B20 Human immunodeficiency virus [HIV] disease (principal); I21.4 Non-ST elevation (NSTEMI) myocardial infarction; J15.9 Unspecified bacterial pneumonia; J96.00 Acute respiratory failure, unspecified whether with hypoxia or hypercapnia; J44.0 Chronic obstructive pulmonary disease with (acute) lower respiratory infection; N17.9 Acute kidney failure, unspecified; R64 Cachexia; Z68.1 Body mass index [BMI] 19.9 or less, adult; B37.81 Candidal esophagitis; C78.7 Secondary malignant neoplasm of liver and intrahepatic bile duct; B37.0 Candidal stomatitis; E44.0 Moderate protein-calorie malnutrition; I13.0 Hypertensive heart and chronic kidney disease with heart failure and stage 1 through stage 4 chronic kidney disease, or unspecified chronic kidney disease; I42.9 Cardiomyopathy, unspecified; E11.52 Type 2 diabetes mellitus with diabetic peripheral angiopathy with gangrene; I50.9 Heart failure, unspecified; N18.32 Chronic kidney disease, stage 3b; E11.22 Type 2 diabetes mellitus with diabetic chronic kidney disease; E11.65 Type 2 diabetes mellitus with hyperglycemia; D63.1 Anemia in chronic kidney disease; E87.6 Hypokalemia; E78.5 Hyperlipidemia, unspecified; D63.8 Anemia in other chronic diseases classified elsewhere; E86.0 Dehydration; I44.7 Left bundle-branch block, unspecified; I25.10 Atherosclerotic heart disease of native coronary artery without angina pectoris; F17.200 Nicotine dependence, unspecified, uncomplicated; R91.8 Other nonspecific abnormal finding of lung field; Z79.4 Long term (current) use of insulin; Z63.5 Disruption of family by separation and divorce; Z79.82 Long term (current) use of aspirin; Z79.84 Long term (current) use of oral hypoglycemic drugs; Z79.899 Other long term (current) drug therapy
CPT/HCPCS: 36415; 71045; 71250; 74176; 80048; 80053; 80061; 80076; 81001; 82140; 82607; 82728; 83540; 83605; 83690; 83735; 84100; 84443; 84466; 84484; 85014; 85018; 85025; 85610; 85730; 86360; 86361; 86850; 86900; 86901; 86920; 87040; 87205; 87536; 93005; 93306; 94010; 94760; 96365; 96375; 97116; 97161; 97530; 99285; J0696; J1450; J1940; J2270; J2405; J2930; J3480; J7030; J7050; J7512; J7605; P9016

== ENCOUNTER 2022-10-07 10:42 | Emergency (ER) | payer OTHER ==
--- OUTSIDE RECORDS SUMMARY | 2022-10-07 11:00 | XMS REPORT | Continuity of Care Document ---
:1945 Author Organization [facility] t Address [address] [place] [address] [address] [place] [address] Care Team Providers Name Role Phone KINA [...] Expiration Date S ource OUT OF STATE [place] [phone] 1999 00:00:00 [facility] CHOICE [phone] 2020 00:00:00 CARD AND PC3 Problems Condition [...] 07-03 [facility] disease 00:00: Medical 00 [place] S/P brain S/P brain Disease Active [facility] surgery surgery 07-03 [facility] 00:[facility]: Medical 00 [place] Essential Essential Disease Recurre [facility] hypertensi hypertensi nce 07-03 Lakshmi kes on on 00:00: Medical [place] 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 Tobacco use and 2020-07-02 2020-07-[address] [facility] 00:00[facility]00 00:00:[address] [facility] Cigarettes smoked 2020-07-02 2020-07-02 [facility] current (pack per 00:00:00 00:00:00 [facility] Center day) - Reported Cigarette 2020-07-02 2020-07-02 [facility] pack-years 00:00:00 00:00:00 [facility] Sex Ass[birth year] [facility] 00:00:00 00:00:00 [facility] Smoking Status Start Date Stop Date Source Smokes tobacco daily 2020-07-02 00:00:00 [facility] Medications Ordered Filled Start Stop Current Ordering Indication Dosage Frequency Signature Comments Components Source Medication Medication Date Date Medication? Clinician (SIG) Name Name acetaminoph Yes 650mg Take [address] en 7-23 mg by Lu[facility] (TYLENOL) 12:50: mouth Medical 325 MG 46 [...] mouth Medic al 46 daily. Center e-lytes/car 0 Yes 5mL [address] [facility] boxymethylc 7-23 Mucous [facility] ellulose 12:50: Membrane Medic al (ARTIFICIAL 46 route 4 Cente r SALIVA MM) (four) times daily as needed (Dry Mouth). budesonide- 0 Yes 2{puff} Q.5D Inhale [address] formoteroL 7-23 puffs by [facility] (SYMBICORT) 12:50: mouth via M edical 80-4.5 46 inhaler 2 Center mcg/actuati (two) on inhaler times daily Rinse after use . busPIRone 0 Yes 20mg Q.39555777 Take [address] (BUSPAR) 10 7-23 [id number] by mouth 3 [facility] MG tablet 12:50: 3D (three) Medic al 46 times Center daily. cyanocobala 0 Yes 1000ug QD Take 1,[address] [...] 12:50: daily. Medica l 46 Center fluticasone 2020-0 Yes 1{spray Q.5D [address] [address] propionate 7-23 } Nasal [facility] (FLONASE) 12:50: route 2 Medic al 50 46 (two) Center mcg/actuati times on nasal daily. spray folic acid 0 Yes 1mg QD Take [address] (FOLVITE) 1 7-23 by mouth Luke s MG tablet 12:50: daily. Medica l 46 Center multivitami Yes 1{tbl} QD Take [address] n per 7-23 tablet by [facility] tablet 12:50: mouth Medical 46 daily. Center oxybutynin Yes 5mg Q.10641934 Take [address] (DITROPAN) 7-23 [id number] by mouth 3 [facility] 5 MG tablet [...] times daily Rinse after use . busPIRone 0 Yes 20mg Q.88057823 Take [address] (BUSPAR) 10 7- [id number] by mouth 3 [facility] MG tablet 12:50: 3D (three) Medic al 46 times Center daily. cyanocobala Yes 1000ug QD Take 1,[address] min, 7-23 mcg by [facility] vitamin 12:50: mouth Medical B-12, 1000 46 daily. Center MCG tablet docusate Yes 100mg QD Take [address] sodium 7-23 mg by [facility] (COLACE) 12:50: mouth Medical 100 MG 46 daily. [place] capsule DULoxetine Yes 120mg QD Take [address] (CYMBALTA) 7-23 mg by [facility] 60 MG 12:50: mouth Medical capsule 46 daily. [place] finasteride Yes 5mg QD Take 5 mg [...] Take [address] n per - tablet by [facility] tablet 12:50: mouth Medical 46 daily. [place] oxybutynin 0 Yes 5mg Q.50371717 Take [address] (DITROPAN) 7-23 [id number] by mouth 3 [facility] 5 MG tablet [...] Rinse after use . busPIRone Yes 20mg Q.51894961 Take [address] (BUSPAR) 10 7-23 [id number] by mouth 3 [facility] MG tablet 12:50: 3D (three) Medic al 46 times Center daily. cyanocobala Yes 1000ug QD Take 1,[address] min, 7-23 mcg by [facility] vitamin 12:50: mouth Medical B-12, 1000 46 daily. Center MCG tablet docusate Yes 100mg QD Take [address] sodium 7-23 mg by [facility] (COLACE) 12:50: mouth Medical 100 MG 46 daily. Center capsule DULoxetine 2021-0 Yes 120mg QD Take 120 CH I [...] [address] (FOLVITE) 1 7- by mouth Luke s MG tablet 12:50: daily. Medica l 46 Center multivitami Yes 1{tbl} QD Take [address] n per 7- tablet by [facility] tablet 12:50: mouth Medical 46 daily. [place] oxybutynin Yes 5mg Q.48799400 Take [address] (DITROPAN) 7- [id number] by mouth 3 [facility] 5 MG tablet [...] mg 00 nightly. Center per tablet thiamine 2020-0 Yes 100mg QD Take [address] 100 MG 6-18 tablet [facility] tablet 00:00: (100 mg Medical 00 total) by Center mouth daily. omeprazole 2020-0 Yes 40mg Q.5D Take 1 [facility] (PriLOSEC) 6-18 capsule [facility] 40 MG 00:00: (40 mg Medical capsule 00 total) by Center mouth 2 (two) times daily. polyethylen 2020-0 Yes 17g QD Take [address] e glycol 6-18 by mouth [facility] (GLYCOLAX) 00:00: daily. Medic al 17 gram 00 Center packet senna-docus Yes 1{tbl} QD Take [address] ate 6-18 tablet by [facility] (SENOKOT S) 00:00: mouth Medic al 8.6-50 mg 00 nightly. Center per tablet thiamine 2020-0 Yes 100mg QD Take [address] 100 MG 6-18 tablet [facility]ukes tablet 00:00: (100 mg Medical 00 total) by Center mouth daily. omeprazole 0 Yes 40mg Q.5D Take 1 [facility] (PriLOSEC) 6-18 capsule [facility] 40 MG 00:00: (40 mg Medical capsule 00 total) by Center mouth 2 (two) times daily. polyethylen 2020-0 Yes 17g QD Take [address] e glycol 6-18 by mouth [facility] (GLYCOLAX) 00:00: daily. Medic al 17 gram 00 Center packet senna-docus Yes 1{tbl} QD Take [address] ate 6-18 tablet by [facility] (SENOKOT S) 00:00: mouth Medic al 8.6-50 mg 00 nightly. Center per tablet thiamine 2020-0 Yes 100mg QD Take [address] [...] [facility] Test 00:00:00 (Season Ended) [code = Medic al Center INFLUENZA VACCINE (Season Ended)] Future Scheduled 2023-01-[address] [facility] Test 00:00:00 (Season Ended) [code = Medic al Center INFLUENZA VACCINE (Season Ended)] Future Scheduled 2022-05-05 [...] [facility] Test 00:00:00 measurement (procedure) [facility] [code = 85861557] Future Scheduled 2021-05-[address] [facility]shmi k[facility] Test 00:00:00 measurement (procedure) [facility] [code = 32084652] Future Scheduled 2021-05-[address] [facility]shmi k[facility] Test 00:00:00 measurement (procedure) [facility] [code = 84380501] Future Scheduled 1997 Screening for malignant [facility] Test 00:00:00 neoplasm of lung Medical [facility] (procedure) [code = 715548125] Future Scheduled 1997 SHINGLES VACCINES ([address] [facility] Test 00:00:00 2) [code = SHINGLES Medical Center VACCINES (1 of 2)] Future Scheduled 1997 Screening for malignant [facility] Test 00:00:00 neoplasm of lung Medical [facility] (procedure) [code = 923061079] Future Scheduled 1997 SHINGLES VACCINES ([address] [facility] Test 00:00:00 2) [code = SHINGLES Medical Center VACCINES (1 of 2)] Future Scheduled 1997 Screening for malignant [facility] Test 00:00:00 neoplasm of lung Medical [facility] (procedure) [code = 850664753] Future Scheduled 1997 SHINGLES VACCINES ([address] [facility] Test 00[facility]00:00 2[facility] Future Scheduled [...] 00:00:00 examination Medical Center (regime/therapy) [code = 836091016] Future Scheduled 1957 Urine screening for [facility] Test 00:00:00 protein (procedure) Medical Center [code = 252934803] Future Scheduled 1957 DIABETIC EYE EXAM [code [facility] Test 00:00:00 = DIABETIC EYE EXAM] Medical Center Future Scheduled [address] [facility] Test 00:00:00 examination Medical Center (regime/therapy) [code = 352590160] Future Scheduled 1957 Urine screening for [facility] Test 00:00:00 protein (procedure) Medical Center [code = 386105721] Future Scheduled 1957 DIABETIC EYE EXAM [code [facility] Test 00:00:00 = DIABETIC EYE EXAM] Medical Center Future Scheduled [address] [facility] Test 00:00:00 examination Medical Center (regime/therapy) [code = 924464894] Future Scheduled 1957 Urine screening for [facility] Test 00:00:00 protein (procedure) Medical Center [code = 583108674] Future Scheduled 1953 PNEUMOCOCCAL 65+ YRS (1 [...] [facility] Test 00:00:00 [code = CT Colonography Medi ayanna Center (combo)] Future Scheduled 1947 Screening for malignant [facility] Test 00:00:00 neoplasm of colon Medical Ce nter (procedure) [code = 337702820] Future Scheduled 1947 Screening for malignant [facility] Test 00:00:00 neoplasm of colon Medical Ce nter (procedure) [code = 883668320] Future Scheduled 1947 Screening for malignant [facility] Test 00:00:00 neoplasm of colon Medical Ce nter (procedure) [code = 396613065] Future Scheduled 1947 Screening for malignant [facility] Test 00:00:00 neoplasm of colon Medical Ce nter (procedure) [code = 248863489] Future Scheduled 1945 Sigmoidoscopy [code = [facility] Test 00:00:00 Sigmoidoscopy] Medical Cente r Future Scheduled 1947 CT Colonography (combo) [facility] Test 00:00:00 [code = CT Colonography Medi ayanna Center (combo)] Future Scheduled 1947 Screening for malignant [facility] Test 00:00:00 neoplasm of colon Medical Ce nter (procedure) [code = 373031858] Future Scheduled 1947 Screening for malignant [facility] Test 00:00:00 neoplasm of colon Medical Ce nter (procedure) [code = 199475147] Future Scheduled 1947 Screening for malignant [facility] Test 00:00:00 neoplasm of colon Medical Ce nter (procedure) [code = 701407415] Future Scheduled 1947 Screening for malignant [facility] Test 00:00:00 neoplasm of colon Medical Ce nter (procedure) [code = 509152904] Future Scheduled 1945 Sigmoidoscopy [code = [facility] 00:00:00 Sigmoidoscopy] Medical Cente r Future Scheduled 1947 CT Colonography (combo) [facility] Test 00:00:00 [code = CT Colonography Medi ayanna Center (combo)] Future Scheduled 1947 Screening for malignant [facility] Test 00:00:00 neoplasm of colon Medical Ce nter (procedure) [code = 963632848] Future Scheduled 1947 Screening for malignant [facility] Test 00:00:00 neoplasm of colon Medical Ce nter (procedure) [code = 663672008] Future Scheduled 1947 Screening for malignant [facility] Test 00:00:00 neoplasm of colon Medical Ce nter (procedure) [code = 016650371] Future Scheduled 1947 Screening for malignant [facility] Test 00:00:00 neoplasm of colon Medical Ce nter (procedure) [code = 140619003] Future Scheduled 1945 Sigmoidoscopy [code = [facility] Test 00:00:00 Sigmoidoscopy] Medical Cente r Encounters Start End Encounter Admission Attending Care Care Encounter Source Date/Time Date/Time Type Type Clinicians Facility Department ID 2021-02-11 Inpatient ER [facility] Pulmonology [id number] [facility] 04:13:37 HOMAIRA 2021-02-11 [facility] Internal [id number] [facility] 04:12:36 [facility] 2020-10-14 Inpatient ER [facility] Med 0 [id number] [facility] 03:44:00 MOHAMMAD 2020-07-02 Inpatient ER [facility] Neurology [id number] [facility] 20:02:00 PILAR PAULINO Results Test Description Test Time Test Comments Results Result Comments Source POCT-GLUCOSE METER 2020-11-24 11:38:00 Test Item Value Reference Range Interpretation Comme nts POC-GLUCOSE METER (Quantapore) 150 mg/dL 70-110 H : TESTED AT [facility] ODALYS BRICE[address]O (test code = 1538) [place] [address]: Renewable Energy Trader/Techni michael ID = [id number] for Raghav, Claribeladiel a POCT-GLUCOSE [id number] 06:49:00 Test Item Value Reference Range Interpretation Comments POC-GLUCOSE METER 95 mg/dL 70-110 : TESTED A T [facility] ([facility] (test code = [address] 1538) [place] [address]: Renewable Energy Trader/Techni michael ID = [id number] for Saravanan s, Kebbah POCT-GLUCOSE [id number] 20:48:00 Test Item Value Reference Range Interpretation Comments POC-GLUCOSE METER 146 mg/dL 70-110 H : TESTED A T [facility] (BEAKER) (test code [address], = 1538) [place] [address] 0: Renewable Energy Trader/Techni michael ID = [id number] for Marissa Aguilar POCT-GLUCOSE [id number] 17:03:00 Test Item Value Reference Range Interpretation Comments POC-GLUCOSE METER 117 mg/dL 70-110 H : TESTED A T [facility] (BEAKER) (test code [address], = 1538) [place] [address] 0: Renewable Energy Trader/Techni michael ID = [id number] for Rama Oneal ph [place], CHOLANGIOGRAM, [id number] 15:12:00 [facility] : 1945 Sex: MFINAL REPORT Procedure: Cholecystostomy tube check History: cholangiogram PrimaryOperator: Leif Ojeda MD. Circulation Crew Leader: None. Modality: Fluoroscopy DOSE REDUCTION: The examinationwas performed according to departmental dose-optimization program which includes automated exposure c ontrol, adjustment of the mA and/or kV according to patient size. Fluoro time: 0.3 minutes. Radiation dose: 18.5 mGy air Kerma. Sedation: Not applicable Anesthesia: Not applicable. Estimated blood loss: 0 cc. Technique: The patient was laid supine on the fluoroscopy table. A arts therapist radiograph was obtained. Gentle injection of contrast medium was obtained through the existing catheter and intermittentfluoroscopic observations were made and photospot images obtained [...] gallbladder calculi. Is prompt filling gallbladder the injectedcontrast passes down the cystic duct into the common bile duct. There is no common bile duct abnormality or filling defect. Is prompt passage of contrast material across the ampulla to the left. There is presence of multiple small non-radiopaque calculi in the gallbladder body. Possibility of calculusin the region of gallbladder neck also considered. [...] Ojeda Verified Date/Time: 11/23/2020 15:12:15 Reading Location: [facility] Diagnostic Imaging Reading Room - [facility] 1.310.12 POCT-GLUCOSE [id number] 12:08:00 Test Item Value Reference Range Interpretation Comments POC-GLUCOSE METER 147 mg/dL 70-110 H : TESTED A T [facility] ([employer]) (test code [address], = 1538) [place] [address] 0: Renewable Energy Trader/Techni michael ID = [id number] for Jm amador [facility] POCT-GLUCOSE [id number] 07:08:00 Test Item Value Reference Range Interpretation Comments POC-GLUCOSE METER 94 mg/dL 70-110 : TESTED A T [facility] ([employer]) (test code = [address], 1538) [place] [address] 0: Renewable Energy Trader/Techni michael ID = [id number] for Danny lazo, [facility] POCT-GLUCOSE [id number] 20:59:00 Test Item Value Reference Range Interpretation Comments POC-GLUCOSE METER 103 mg/dL 70-110 : TESTED A T [facility] (BEAKER) (test code [address], = 1538) [place] [address] 0: Renewable Energy Trader/Techni michael ID = [id number] for Safia Galvin POCT-GLUCOSE [id number] 13:39:00 Test Item Value Reference Range Interpretation Comments POC-GLUCOSE METER 141 mg/dL 70-110 H : TESTED A T [facility] (BEAKER) (test code [address], = 1538) [place] [address] 0: Renewable Energy Trader/Techni michael ID = [id number] for Libby Hector POCT-GLUCOSE [id number] 05:52:00 Test Item Value Reference Range Interpretation Comments POC-GLUCOSE METER 108 mg/dL 70-110 : TESTED A T [facility] (BEAKER) (test code [address], = 1538) [place] [address] 0: Renewable Energy Trader/Techni michael ID = [id number] for Queenie Worthington POCT-GLUCOSE [id number] 21:46:00 Test Item Value Reference Range Interpretation Comments POC-GLUCOSE METER 125 mg/dL 70-110 H : TESTED A T [facility] (BEAKER) (test code [address], = 1538) [place] [address] 0: Renewable Energy Trader/Techni michael ID = [id number] for Liset Mcnally SARS-COV2/RT-PCR ([facility])2020-11-21 20:15:00 Test Item Value Reference Range Interpretation Comments SARS-COV2/RT-PCR Negative Negative The SARS-Co V-2 target (test code = 0743271) nuclei c acids are not detected in [...] Xpress SARS-CoV-2/Flu/RSV by their healthcareprovider. Results from [facility] Xpert Xpress SARS-CoV-2/Flu/RSV test should be [...] of the Act.Fact Sheet for Healthcare Providers:https ://www.[employer]/Documents/Xpert%20Xpress%20SARS%20CoV-2/Fact%20Sheets/302-390 2%34CDBX-SED-1%20HEALTHCARE%20PROVIDERS%20FACT%20SHEET.pdfFact Sheet for Healthcare Patients:https://www.[employer]/Docum ents/Xpert%20Xpress%20SARS%20Cov-2/Fact%20Sheets/302-3801%81OSLI-ZSX-0%20PATIENT %20FACT%20SHEET.pdfPOCT-GLUCOSE [id number] 16:27:00 Test Item Value Reference Range Interpretation Comments POC-GLUCOSE METER 137 mg/dL 70-110 H : TESTED A T [facility] (MIRIAN) (test code [address], = 1538) [place] [address] 0: Renewable Energy Trader/Techni michael ID = [id number] for Jaimie Ramos POCT-GLUCOSE [id number] 11:57:00 Test Item Value Reference Range Interpretation Comments POC-GLUCOSE METER 129 mg/dL 70-110 H : TESTED A T [facility] (BEAKER) (test code [address], = 1538) [place] [address] 0: Renewable Energy Trader/Techni michael ID = [id number] for Jaimie Ramos POCT-GLUCOSE [id number] 06:06:00 Test Item Value Reference Range Interpretation Comments POC-GLUCOSE METER 111 mg/dL 70-110 H : TESTED A T [facility] (BEAKER) (test code [address], = 1538) [place] [address] 0: Renewable Energy Trader/Techni michael ID = [id number] for Cindy Alvarez CBC W/PLT COUNT & AUTO [id number] 05:58:00 Test Item Value Reference Range Interpretation [...] 1+ few code = 478) BASIC METABOLIC [id number] 05:53:00 Test Item Value Reference Range Interpretation [...] S NOT APPLICABLE FOR DIALYSIS PATIEN TS. Renewable Energy Trader ID - Lisa [id number] 05:53:00 Test Item Value Reference Range Interpretation Comments MAGNESIUM (BEAKER) (test code = 2.2 mg/dL 1.5-3.0 627) Renewable Energy Trader ID - Lisa [id number] 05:53:00 Test Item Value Reference Range Interpretation Comments PHOSPHORUS (BEAKER) (test code = 3.1 mg/dL 2.5-4.5 604) Renewable Energy Trader ID - Lisa TPOCT-GLUCOSE [id number] 20:19:00 Test Item Value Reference Range Interpretation Comments POC-GLUCOSE METER 143 mg/dL 70-110 H : TESTED A T [facility] (BEAKER) (test code [address], = 1538) [place] [address] 0: Renewable Energy Trader/Techni michael ID = [id number] for Queenie Worthington POCT-GLUCOSE [id number] 17:27:00 Test Item Value Reference Range Interpretation Comments POC-GLUCOSE METER 116 mg/dL 70-110 H : TESTED A T [facility] (BEAKER) (test code [address], = 1538) [place] [address] 0: Renewable Energy Trader/Techni michael ID = [id number] for Terrance Seaman POCT-GLUCOSE [id number] 12:11:00 Test Item Value Reference Range Interpretation Comments POC-GLUCOSE METER 147 mg/dL 70-110 H : TESTED A T [facility] (BEAKER) (test code [address], = 1538) [place] [address] 0: Renewable Energy Trader/Techni michael ID = [id number] for Reina Mitchell POCT-GLUCOSE [id number] 06:39:00 Test Item Value Reference Range Interpretation Comments POC-GLUCOSE METER 120 mg/dL 70-110 H : TESTED A T [facility] (BEAKER) (test code [address], = 1538) [place] [address] 0: Renewable Energy Trader/Techni michael ID = [id number] for Laura Langford CBC W/PLT COUNT & AUTO [id number] 04:59:00 Test Item Value Reference Range Interpretation [...] 0-100 H (BEAKER) (test code = 700) Renewable Energy Trader ID - SHANNONBASIC METABOLIC [id number] 04:30:00 Test Item Value Reference Range Interpretation [...] S NOT APPLICABLE FOR DIALYSIS PATIEN TS. Renewable Energy Trader ID - [id number] 04:30:00 Test Item Value Reference Range Interpretation Comments MAGNESIUM (BEAKER) (test code = 2.0 mg/dL 1.5-3.0 627) Renewable Energy Trader ID - [id number] 04:30:00 Test Item Value Reference Range Interpretation Comments PHOSPHORUS (MIRIAN) (test code = 2.7 mg/dL 2.5-4.5 604) Renewable Energy Trader ID - KAVITAPOCT-GLUCOSE [id number] 20:07:00 Test Item Value Reference Range Interpretation Comments POC-GLUCOSE METER 110 mg/dL 70-110 : TESTED A T [facility] (BEAKER) (test code [address], = 1538) [place] [address] 0: Renewable Energy Trader/Techni michael ID = [id number] for Maribel Eubanks POCT-GLUCOSE [id number] 18:53:00 Test Item Value Reference Range Interpretation Comments POC-GLUCOSE METER 114 mg/dL 70-110 H : TESTED A T [facility] (BEAKER) (test code [address], = 1538) [place] [address] 0: Renewable Energy Trader/Techni michael ID = [id number] for Hu johnson Reina RAD, CHEST, 1 VIEW, NON [id number] 15:02:00Reason for exam:->shortness of breathShould this be performed at the bedside?->Yes [facility] : 1945 Sex: MFINAL REPORT Chest, one [...] Margie Foster Verified Date/Time: 11/19/2020 15:02:18 Reading Location:[facility] C013Y CT Body Reading Room POCT- GLUCOSE [id number] 11:52:00 Test Item Value Reference Range Interpretation Comments POC-GLUCOSE METER 137 mg/dL 70-110 H : TESTED A T [facility] (BEAKER) (test code [address], = 1538) [place] [address] 0: Renewable Energy Trader/Techni michael ID = [id number] for Reina Mitchell POCT-GLUCOSE [id number] 06:29:00 Test Item Value Reference Range Interpretation Comments POC-GLUCOSE METER 115 mg/dL 70-110 H : TESTED A T HV (BEAKER) (test code [address], = 1538) [place] [address] 0: Renewable Energy Trader/Techni michael ID = [id number] for Siso n, [place] BASIC METABOLIC [id number] 04:54:00 Test Item Value Reference Range Interpretation [...] S NOT APPLICABLE FOR DIALYSIS PATIEN TS. Renewable Energy Trader ID - Lisa [id number] 04:54:00 Test Item Value Reference Range Interpretation Comments MAGNESIUM (BEAKER) (test code = 2.1 mg/dL 1.5-3.0 627) Renewable Energy Trader ID - Lisa [id number] 04:54:00 Test Item Value Reference Range Interpretation Comments PHOSPHORUS (BEAKER) (test code = 2.5 mg/dL 2.5-4.5 604) Renewable Energy Trader ID - Lisa TCBC W/PLT COUNT & AUTO [id number] 04:49:00 Test Item Value Reference Range Interpretation [...] 1+ few (test code = 478) POCT-GLUCOSE [id number] 20:36:00 Test Item Value Reference Range Interpretation Comments POC-GLUCOSE METER 108 mg/dL 70-110 : TESTED A T [facility] (BEAKER) (test code [address], = 1538) [place] [address] 0: Renewable Energy Trader/Techni michael ID = [id number] for Elsy mullen [place] POCT-GLUCOSE [id number] 17:17:00 Test Item Value Reference Range Interpretation Comments POC-GLUCOSE METER 99 mg/dL 70-110 : TESTED A T [facility] (BEAKER) (test code = [address], 1538) [place] [address] 0: Renewable Energy Trader/Techni michael ID = [id number] for Rama Oneal ph POCT-GLUCOSE [id number] 11:30:00 Test Item Value Reference Range Interpretation Comments POC-GLUCOSE METER 211 mg/dL 70-110 H : TESTED A Candida [facility] (MIRIAN) (test code SERAFINAPOLLO R[address], = 1538) [facility] 7[address] 0: Renewable Energy Trader/Techni michael ID = [id number] for Rosemary es, Libby [facility], MULTI, PHARM, [id number] 10:12:00NPO AFTER MIDNIGHT. NO CAFFEINE STARTING NOW.Reason for exam:->elevated troponin [facility] : 1945 Sex: MFINAL REPORT PROCEDURE: Myocardial [...] Hg during stress, which is a normal responseto pharmacologic stress. The patient did not complain [...] cavity appears normal. The left ventricular ejection fraction(EF) is mildly depressed at 42%. Gated SPECT images shows inferior wall akinesis. IMPRESSION: Abnormal myocardial perfusion stress test. Overall left ventricular function is mildly depressed with inferior wall akinesis. Signed: Monica [place] Verified Date/Time: 11/18/2020 10:12:50 CBC W/PLT COUNT & AUTO DIFFERENTIAL 2020-11-18 05:28:00 Test Item Value Reference Range Interpretation [...] (test code = 1+ few 477) POCT-GLUCOSE [id number] 05:18:00 Test Item Value Reference Range Interpretation Comments POC-GLUCOSE METER 130 mg/dL 70-110 H : TESTED A T [facility] (BEAKER) (test code [address], = 1538) [place] [address] 0: Renewable Energy Trader/Techni michael ID = [id number] for Yannick Stubbs BASIC METABOLIC [id number] 04:20:00 Test Item Value Reference Range Interpretation [...] S NOT APPLICABLE FOR DIALYSIS PATIEN TS. Renewable Energy Trader ID - [id number] 04:20:00 Test Item Value Reference Range Interpretation Comments MAGNESIUM (BEAKER) (test code = 2.2 mg/dL 1.5-3.0 627) Renewable Energy Trader ID - [id number] 04:20:00 Test Item Value Reference Range Interpretation Comments PHOSPHORUS (BEAKER) (test code = 2.5 mg/dL 2.5-4.5 604) Renewable Energy Trader ID - KAVITAPOCT-GLUCOSE [id number] 20:16:00 Test Item Value Reference Range Interpretation Comments POC-GLUCOSE METER 141 mg/dL 70-110 H : TESTED A T [facility] (BEAKER) (test code [address], = 1538) [place] [address] 0: Renewable Energy Trader/Techni michael ID = [id number] for Yannick Stubbs POCT-GLUCOSE [id number] 17:09:00 Test Item Value Reference Range Interpretation Comments POC-GLUCOSE METER 176 mg/dL 70-110 H : TESTED A T [facility] (BEAKER) (test code [address], = 1538) [place] [address] 0: Renewable Energy Trader/Techni michael ID = [id number] for Sriram cedeno Terrance BODY FLUID CULTURE + GRAM [id number] 12:57:00 Test Item Value Reference Range Interpretation Comments CULTURE (BEAKER) (test No growth code = 1095) GRAM STAIN RESULT <1+ White blood cells (BEAKER) (test code = seen 1123) GRAM STAIN RESULT No organisms seen (BEAKER) (test code = 16011) POCT-GLUCOSE [id number] 11:04:00 Test Item Value Reference Range Interpretation Comments POC-GLUCOSE METER 117 mg/dL 70-110 H : TESTED A T [facility] (BEAKER) (test code [address], = 1538) [place] [address] 0: Renewable Energy Trader/Techni michael ID = [id number] for Terrance Seaman RAD, CHEST, 1 VIEW, NON [id number] 08:03:00Reason for exam:- >PneumoniaShould this be performed at the bedside?->Yes [facility] 1945 Sex: MFINAL REPORT Chest AP portable erect COMPARISON STUDY: 11/15/2020 History provided: Pneumonia Small pleural effusion remains on the right with atelectatic changes in the right lower lobe. Left lung remains clear. Normal heart size and vascularity. Signed: Richard Montiel Verified Date/Time: 11/17/2020 08:03:31 Reading Location: [facility] Diagnostic Imaging Reading Room - [facility] 1.3 10.12 POCT- GLUCOSE [id number] 06:10:00 Test Item Value Reference Range Interpretation Comments POC-GLUCOSE METER 114 mg/dL 70-110 H : TESTED A T [facility] (BEAKER) (test code [address], = 1538) [place] [address]: Renewable Energy Trader/Techni michael ID = [id number] for Queenie Worthington CBC W/PLT COUNT & AUTO [id number] 06:05:00 Test Item Value Reference Range Interpretation [...] code = 1+ few 477) BASIC METABOLIC [id number] 05:52:00 Test Item Value Reference Range Interpretation [...] S NOT APPLICABLE FOR DIALYSIS PATIEN TS. Renewable Energy Trader ID - Lisa [id number] 05:52:00 Test Item Value Reference Range Interpretation Comments MAGNESIUM (BEAKER) (test code = 2.2 mg/dL 1.5-3.0 627) Renewable Energy Trader ID - Lisa [id number] 05:52:00 Test Item Value Reference Range Interpretation Comments PHOSPHORUS (BEAKER) (test code = 3.1 mg/dL 2.5-4.5 604) Renewable Energy Trader ID - Lisa TPOCT-GLUCOSE [id number] 21:25:00 Test Item Value Reference Range Interpretation Comments POC-GLUCOSE METER 133 mg/dL 70-110 H : TESTED A T [facility] (BEAKER) (test code [address], = 1538) [place] [address] 0: Renewable Energy Trader/Techni michael ID = [id number] for Reymundo Perry POCT-GLUCOSE [id number] 16:30:00 Test Item Value Reference Range Interpretation Comments POC-GLUCOSE METER 125 mg/dL 70-110 H : TESTED A T [facility] (BEAKER) (test code [address], = 1538) [place] [address] 0: Renewable Energy Trader/Techni michael ID = [id number] for Terrance Seaman POCT-GLUCOSE [id number] 11:01:00 Test Item Value Reference Range Interpretation Comments POC-GLUCOSE METER 135 mg/dL 70-110 H : TESTED A T [facility] (BEAKER) (test code [address], = 1538) [place] [address] 0: Renewable Energy Trader/Techni michael ID = [id number] for Terrance Seaman POCT-GLUCOSE [id number] 06:34:00 Test Item Value Reference Range Interpretation Comments POC-GLUCOSE METER 127 mg/dL 70-110 H : TESTED A T [facility] (BEAKER) (test code [address], = 1538) [place] [address] 0: Renewable Energy Trader/Techni michael ID = [id number] for Jannette Anaya BASIC METABOLIC [id number] 04:57:00 Test Item Value Reference Range Interpretation [...] S NOT APPLICABLE FOR DIALYSIS PATIEN TS. Renewable Energy Trader ID - [id number] 04:57:00 Test Item Value Reference Range Interpretation Comments MAGNESIUM (BEAKER) (test code = 2.2 mg/dL 1.5-3.0 627) Renewable Energy Trader ID - [id number] 04:57:00 Test Item Value Reference Range Interpretation Comments PHOSPHORUS (BEAKER) (test code = 3.1 mg/dL 2.5-4.5 604) Renewable Energy Trader ID - KAVITACBC W/PLT COUNT & AUTO [id number] 04:54:00 Test Item Value Reference Range Interpretation [...] PERCENT (BEAKER) (test code = 2801) POCT-GLUCOSE [id number] 20:29:00 Test Item Value Reference Range Interpretation Comments POC-GLUCOSE METER 148 mg/dL 70-110 H : TESTED A T [facility] (BEAKER) (test code [address], = 1538) [place] [address] 0: Renewable Energy Trader/Techni michael ID = [id number] for Jannette Anaya POCT-GLUCOSE [id number] 17:39:00 Test Item Value Reference Range Interpretation Comments POC-GLUCOSE METER 126 mg/dL 70-110 H : TESTED A T [facility] (BEAKER) (test code [address], = 1538) [place] [address] 0: Renewable Energy Trader/Techni michael ID = [id number] for Terrance Seaman HEMOGLOBIN AND [id number] 14:26:00 Test Item Value Reference Range Interpretation Comments HEMOGLOBIN (BEAKER) (test code = 8.6 GM/DL 13.0-16.8 L 410) HEMATOCRIT (BEAKER) (test code = 28.2 % 36.0-50.0 L 411) POCT-GLUCOSE [id number] 12:53:00 Test Item Value Reference Range Interpretation Comments POC-GLUCOSE METER 117 mg/dL 70-110 H : TESTED A T [facility] (BEAKER) (test code [address], = 1538) [facility] 7[address] 0: Renewable Energy Trader/Techni michael ID = [id number] for Rosemary Gracia BODY FLUID CELL COUNT WITH [id number] 09:25:00 Test Item Value Reference Range Interpretation Comments APPEARANCE FLUID Bloody Clear A (BEAKER) (test code = 510) COLOR FLUID Red Colorless, Straw A (BEAKER) (test code = 511) RBC FLUID (BEAKER) 48036 /cu mm See_Comment H [Automat ed (test [...] (BEAKER) 0 % (test code = 492) [id number] Da Perez, 0 (BEAKER) (test M.D. (electronic code = 2620) signature) CONTAINER BODY Sterile Container FLUID (BEAKER) (test code = 2873) RAD, CHEST, 1 VIEW, NON [id number] 08:05:00Reason for exam:- >PneumoniaShould this be performed at the bedside?->Yes [facility] : 1945 Sex: MFINAL REPORT CHEST AP PORTABLE Comparison exam: 11/14/2020 History provided: Pneumonia Heart size normal. Small residual pleural effusion on the right remains with associated atelectatic changes. Left lung clear. Normal vascularity. Signed: Richard Montiel Verified Date/Time: 11/15/2020 08:05:31 Reading Location: [facility] Diagnostic Imaging Reading Room [address] POCT- GLUCOSE [id number] 06:03:00 Test Item Value Reference Range Interpretation Comments POC-GLUCOSE METER 115 mg/dL 70-110 H : TESTED A T [facility] (BEAKER) (test code SHANEWOO Ravi BRICE[address] DR, = 1538) [facility] 7[address] 0: Renewable Energy Trader/Techni michael ID = [id number] for Marissa Aguilar CBC W/PLT COUNT & AUTO [id number] 04:31:00 Test Item Value Reference Range Interpretation [...] code = 1+ few 768) BASIC METABOLIC [id number] 04:13:00 Test Item Value Reference Range Interpretation [...] S NOT APPLICABLE FOR DIALYSIS PATIEN TS. Renewable Energy Trader ID - [id number] 22:11:00 Test Item Value Reference Range Interpretation Comments POC-GLUCOSE METER 125 mg/dL 70-110 H : TESTED A T [facility] (BEAKER) (test code [address], = 1538) [facility] [address] 0: Renewable Energy Trader/Techni michael ID = [id number] for Padi lla, [place] PROTEIN, BODY [id number] 21:04:00 Test Item Value Reference Range Interpretation Comments PROTEIN FLUID (BEAKER) 4.5 g/dL Light's criteria identifies (test code = 579) effusions if one or more are pre Absence of reference range indicates that normals have not been defined.Assay performance has not been validated for this type of specimen.Renewable Energy Trader ID - [id number] DEHYDROGENASE (LDH), BODY [id number] 21:00:00 Test Item Value Reference Range Interpretation Comments LACTATE DEHYDROGENASE FLUID 685 U/L Light's criteria (BEAKER) (test code = 634) identifies effusions if one or more are pre Absence of reference range indicates that normals have not been defined.Assay performance has not been validated for this type of specimen.Renewable Energy Trader ID - [id number] 17:29:00 Test Item Value Reference Range Interpretation Comments POC-GLUCOSE METER 241 mg/dL 70-110 H : TESTED A T [facility] (BEAKER) (test code [address], = 1538) [place] [address] 0: Renewable Energy Trader/Techni michael ID = [id number] for Davidson Edwards POCT-GLUCOSE [id number] 16:32:00 Test Item Value Reference Range Interpretation Comments POC-GLUCOSE METER 116 mg/dL 70-110 H : TESTED A T [facility] (BEAKER) (test code [address], = 1538) [place] [address] 0: Renewable Energy Trader/Techni michael ID = [id number] for Davidson Edwards RAD, CHEST, 1 VIEW, NON [id number] 16:04:00Reason for exam:->Post Right ThoracentesisShould this be performed at the bedside?->Yes [facility] 1945 Sex: MFINAL REPORT CHEST AP PORTABLE ERECT COMPARISON STUDY: 11/13/2020 History provided: Status post right thoracentesis Diminished volume of pleural fluid on the right following thoracentesis. No pneumothorax. Continued atelectatic changes within the right lower lobe. Left lung clear. Signed: Richard Montieleport Verified Date/Time: 11/14/2020 16:04:07 Reading Location: [facility] Diagnostic Imaging [place] [address] 1310.12 U/S, [id number] 15:58:00 Laterality?->RightReason for exam:->pleural effusionLabs to be Ordered:- >Other (please add comment) [facility] 1945 Sex: MFINAL REPORT ULTRASOUND GUIDED [...] space was accessed with a one-stick 5 Malagasy sheathed needle. Approximately 500 cc of yellow, clear fluid was aspirated. The catheter was removed and a sterile dressing was applied. The patient tolerated the procedure well without apparent complications. The fluid was submitted to the laboratory as requested. IMPRESSION: Uneventful ultrasound guided thoracentesis. Signed: Richard Montiel MDReport Verified Date/Time: 11/14/2020 15:58:23 Reading Location: [facility] Diagnostic Imaging [place] [address] 1310.12 BASIC METABOLIC [id number] 05:24:00 Test Item Value Reference Range Interpretation [...] S NOT APPLICABLE FOR DIALYSIS PATIEN TS. Renewable Energy Trader ID - [id number] W/PLT COUNT & AUTO [id number] 05:13:00 Test Item Value Reference Range Interpretation [...] PERCENT (BEAKER) (test code = 2801) POCT-GLUCOSE [id number] 20:54:00 Test Item Value Reference Range Interpretation Comments POC-GLUCOSE METER 144 mg/dL 70-110 H : TESTED A T [facility] (BEAKER) (test code [address], = 1538) [facility] 7[address] 0: Renewable Energy Trader/Techni michael ID = [id number] for Dillon cottrell Faith [id number] 08:49:00 Test Item Value Reference Range Interpretation Comments MAGNESIUM (BEAKER) (test code = 2.4 mg/dL 1.5-3.0 627) Renewable Energy Trader ID - NLYLERAD, CHEST, 1 VIEW, NON [id number] 08:46:00Reason for exam:->Right Thoracentesis has been ordered. Dx: PneumoniaShould this be performed at the bedside?->Yes [facility] : 1945 Sex: MFINAL REPORT Chest AP portable erect COMPARISON STUDY: 10/15/2020 History provided: Pleural effusion Small pleural effusion on the right with right basilar atelectasis. Left lung clear. Normal heart size and vascularity. Signed: Richard Montieleport Verified Date/Time: 11/13/2020 08:46:48 Reading Location: [facility] Diagnostic Imaging Reading Room [place] [address] 1.310.12 TROPONIN [id number] 06:38:00 Test Item Value Reference Range Interpretation [...] failure, acidosis, acute neurological disease, and persistent tachyarrhythmia.Renewable Energy Trader ID - [id number] W/PLT COUNT & AUTO [id number] 04:12:00 Test Item Value Reference Range Interpretation [...] 1+ few (test code = 478) LIPID [id number] 04:11:00 Test Item Value Reference Range Interpretation [...] Borderline 130-159 High 160-189 Very High >=190 Renewable Energy Trader ID - [id number] METABOLIC [id number] 04:06:00 Test Item Value Reference Range Interpretation [...] S NOT APPLICABLE FOR DIALYSIS PATIEN TS. Renewable Energy Trader ID - [id number] 00:39:00 Test Item Value Reference Range Interpretation [...] failure, acidosis, acute neurological disease, and persistent tachyarrhythmia.Renewable Energy Trader ID - [id number] TIME/INR 2020-11-13 00:24:00 Test Item Value Reference Range Interpretation Comments PROTIME (BEAKER) 11.8 seconds 9.8-12.0 Final Infor mation (test code = 759) (Auto Outp ut) INR (BEAKER) (test 1.10 See_Comment Final Inf ormation code = 370) (Auto Output) [Automated mess age] The system Spotwise generated this result transmitted ref erence range: <=5.90. The reference range was not used to int erpret this result as normal/abnormal . RECOMMENDED COUMADIN/WARFARIN INR THERAPY RANGESSTANDARD DOSE: 2.0 - 3.0 Includes: PROPHYLAXIS for venous thrombosis, systemic embolization; TREATMENT for venous thrombosis and/or pulmonary embolus.HIGH RISK: Target INR is 2.5-3.5 for patients with mechanical heart valves.TROPONIN [id number] 18:59:00 Test Item Value Reference Range Interpretation [...] failure, acidosis, acute neurological disease, and persistent tachyarrhythmia.Renewable Energy Trader ID - BRUCEHEPATIC FUNCTION [id number] 11:48:00 Test Item Value Reference Range Interpretation [...] (test code = 10 U/L 5-50 347) Renewable Energy Trader ID - BRUCEBLOOD GAS, [id number] 08:16:00 Test Item Value Reference Range Interpretation [...] pg/mL 0-100 H (test code = 700) Renewable Energy Trader ID - IANN [id number] 07:21:00 Test Item Value Reference Range Interpretation [...] failure, acidosis, acute neurological disease, and persistent tachyarrhythmia.Renewable Energy Trader ID - CHOPZPOCT-GLUCOSE METER 2020-11-12 07:10:00 Test Item Value Reference Range Interpretation Comments POC-GLUCOSE METER 131 mg/dL 70-110 H : TESTED A T [facility] (BEAKER) (test code CHASEWOO Ravi [address], = 1538) [place] [address] 0: Renewable Energy Trader/Techni michael ID = [id number] for Pascual Trejo HEMOGLOBIN [id number] 06:51:00 Test Item Value Reference Range Interpretation Comments HEMOGLOBIN A1C (BEAKER) (test code = 5.7 % 4.3-6.1 368) Renewable Energy Trader ID - CHOPZBASIC METABOLIC [id number] 05:07:00 Test Item Value Reference Range Interpretation [...] S NOT APPLICABLE FOR DIALYSIS PATIEN TS. Renewable Energy Trader ID - CHOPZCBC W/PLT COUNT & AUTO [id number] 05:01:00 Test Item Value Reference Range Interpretation [...] PERCENT (BEAKER) (test code = 2801) POCT-GLUCOSE [id number] 07:49:00 Test Item Value Reference Range Interpretation Comments POC-GLUCOSE METER 90 mg/dL 70-110 : TESTED A T [facility] 6720 (BEAKER) (test code = [place], 1538) [address]: Renewable Energy Trader/Techni michael ID = [id number] for SHAHRIAR SCHWARZ [id number] 07:11:00 Test Item Value Reference Range Interpretation Comments MAGNESIUM (BEAKER) 2.2 mg/dL 1.6-2.6 Specimen slightly (test code = 627) hemolyzed Renewable Energy Trader ID - [id number] 07:11:00 Test Item Value Reference Range Interpretation Comments PHOSPHORUS (BEAKER) 3.8 mg/dL 2.3-4.7 Specimen slightly (test code = 604) hemolyzed Renewable Energy Trader ID - DBBASIC METABOLIC [id number] 07:11:00 Test Item Value Reference Range Interpretation [...] S NOT APPLICABLE FOR DIALYSIS PATIEN TS. Renewable Energy Trader ID - DBCBC W/PLT COUNT & AUTO [id number] 06:59:00 Test Item Value Reference Range Interpretation [...] PERCENT (BEAKER) (test code = 2801) BLOOD [id number] 04:00:00 Test Item Value Reference Range Interpretation Comments CULTURE (BEAKER) (test No growth in 5 days code = 1095) BLOOD [id number] 04:00:00 Test Item Value Reference Range Interpretation Comments CULTURE ([facility]) (test No growth in 5 days code = 1095) POCT-GLUCOSE [id number] 21:20:00 Test Item Value Reference Range Interpretation Comments POC-GLUCOSE METER 171 mg/dL 70-110 H : Notified RN/MD: ([facility]) (test code = TESTED AT [facility] 6720 1538) DENISE [facility], [address]: Renewable Energy Trader/Techni michael ID = [id number] for ANNAMARIE MARLOW POCT-GLUCOSE [id number] 17:48:00 Test Item Value Reference Range Interpretation Comments POC-GLUCOSE METER 149 mg/dL 70-110 H : TESTED A T [facility] 6720 ([facility]) (test code = SHER Estevez [facility], 1538) [address]: Renewable Energy Trader/Techni michael ID = [id number] for SHAHRIAR HANDLEY BODY FLUID CULTURE + GRAM [id number] 13:13:00 Test Item Value Reference Range Interpretation Comments CULTURE ([facility]) (test KLEBSIELLA A 2+ Kl [...] S Sulfamethoxazole (test code = 47) CULTURE ([facility]) (test ESCHERICHIA COLI A 2 + Escherichia [...] No organisms seen (BEAKER) (test code = 745522) POCT-GLUCOSE [id number] 12:08:00 Test Item Value Reference Range Interpretation Comments POC-GLUCOSE METER 191 mg/dL 70-110 H : TESTED A T [facility] 6720 (BEAKER) (test code = [facility], 1538) [address]: Renewable Energy Trader/Techni michael ID = [id number] for SHAHRIAR HANDLEY HEMOGLOBIN [id number] 08:36:00 Test Item Value Reference Range Interpretation Comments HEMOGLOBIN A1C (BEAKER) (test code = 6.4 % 4.3-6.1 H 368) POCT-GLUCOSE [id number] 08:18:00 Test Item Value Reference Range Interpretation Comments POC-GLUCOSE METER 151 mg/dL 70-110 H : TESTED A T [facility] 6720 (BEAKER) (test code = [facility] Herb [facility], 1538) [address]: Renewable Energy Trader/Techni michael ID = [id number] for SHAHRIAR HANDLEY MRSA [id number] 08:18:00 Test Item Value Reference Range Interpretation Comments CULTURE (BEAKER) (test code No MRSA isolated = 1095) BASIC METABOLIC [id number] 06:41:00 Test Item Value Reference Range Interpretation [...] S NOT APPLICABLE FOR DIALYSIS PATIEN TS. Renewable Energy Trader ID - ALBINO [id number] 06:41:00 Test Item Value Reference Range Interpretation Comments MAGNESIUM (BEAKER) (test code = 2.1 mg/dL 1.6-2.6 627) Renewable Energy Trader ID - ALBINO [id number] 06:41:00 Test Item Value Reference Range Interpretation Comments PHOSPHORUS (BEAKER) (test code = 3.2 mg/dL 2.3-4.7 604) Renewable Energy Trader ID - ALBINO MPOCT-GLUCOSE [id number] 21:12:00 Test Item Value Reference Range Interpretation Comments POC-GLUCOSE METER 135 mg/dL 70-110 H : TESTED A T [facility] 6720 (BEAKER) (test code = [facility], 1538) [address]: Renewable Energy Trader/Techni michael ID = [id number] for TRACY ROLAND NINASiria POCT-GLUCOSE [id number] 17:00:00 Test Item Value Reference Range Interpretation Comments POC-GLUCOSE METER 140 mg/dL 70-110 H : TESTED A T [facility] 6720 (BEAKER) (test code = [facility], 1538) [address]: Renewable Energy Trader/Techni michael ID = [id number] for Ca vitt, Eminae POCT-GLUCOSE [id number] 12:23:00 Test Item Value Reference Range Interpretation Comments POC-GLUCOSE METER 189 mg/dL 70-110 H : TESTED A T [facility] 6720 (BEAKER) (test code = [facility], 1538) [address]: Renewable Energy Trader/Techni michael ID = [id number] for Ca vitt, Eminae POCT-GLUCOSE [id number] 07:46:00 Test Item Value Reference Range Interpretation Comments POC-GLUCOSE METER 107 mg/dL 70-110 : TESTED A T [facility] 6720 (BEAKER) (test code = [place], 1538) [address]: Renewable Energy Trader/Techni michael ID = [id number] for Ca vitt, Eminae HIV-1 ANTIGEN WITH HIV-1/2 [id number] 06:57:00 Test Item Value Reference Range Interpretation Comments HIV-1 ANTIGEN WITH HIV 1\T\2 Nonreactive Nonreactive ANTIBODY (2) (BEAKER) (test code = 2586) Renewable Energy Trader ID - BSBASIC METABOLIC [id number] 06:46:00 Test Item Value Reference Range Interpretation [...] S NOT APPLICABLE FOR DIALYSIS PATIEN TS. Renewable Energy Trader ID - [id number] 06:46:00 Test Item Value Reference Range Interpretation Comments MAGNESIUM (BEAKER) (test code = 2.1 mg/dL 1.6-2.6 627) Renewable Energy Trader ID - [id number] 06:46:00 Test Item Value Reference Range Interpretation Comments PHOSPHORUS (BEAKER) (test code = 2.6 mg/dL 2.3-4.7 604) Renewable Energy Trader ID - BSCBC W/PLT COUNT & AUTO [id number] 06:42:00 Test Item Value Reference Range Interpretation [...] PERCENT (BEAKER) (test code = 2801) POCT-GLUCOSE [id number] 21:42:00 Test Item Value Reference Range Interpretation Comments POC-GLUCOSE METER 118 mg/dL 70-110 H : TESTED A T [facility] 6720 (BEAKER) (test code = [facility], 1538) [address]: Renewable Energy Trader/Techni michael ID = [id number] for Markie Gutierrez POCT-GLUCOSE [id number] 17:32:00 Test Item Value Reference Range Interpretation Comments POC-GLUCOSE METER 111 mg/dL 70-110 H : TESTED A T [facility] 6720 (BEAKER) (test code = [facility], 1538) [address]: Renewable Energy Trader/Techni michael ID = [id number] for An veronica, Mary POCT-GLUCOSE [id number] 12:21:00 Test Item Value Reference Range Interpretation Comments POC-GLUCOSE METER 140 mg/dL 70-110 H : TESTED A T [facility] 6720 (BEAKER) (test code = [facility], 1538) [address]: Renewable Energy Trader/Techni michael ID = [id number] for An derson, Mary CT, BRAIN, WITHOUT [id number] 10:01:00Unlisted Reason for Exam - Click Yes and Enter Reason Below->YesUnlisted Reason for Exam->f/u SDH [facility] : 1945 Sex: MFINAL REPORT CT Head [...] MDReport Verified Date/Time: 10/17/2020 10:01:47 Reading Location: [address] Neuro Reading Room BASIC METABOLIC [id number] 07:33:00 Test Item Value Reference Range Interpretation [...] S NOT APPLICABLE FOR DIALYSIS PATIEN TS. Renewable Energy Trader ID - ALBINO [id number] 07:33:00 Test Item Value Reference Range Interpretation Comments MAGNESIUM (BEAKER) (test code = 2.3 mg/dL 1.6-2.6 627) Renewable Energy Trader ID - ALBINO [id number] 07:33:00 Test Item Value Reference Range Interpretation Comments PHOSPHORUS (BEAKER) (test code = 2.9 mg/dL 2.3-4.7 604) Renewable Energy Trader ID - ALBNIO EPATIC FUNCTION [id number] 07:33:00 Test Item Value Reference Range Interpretation [...] (test code = 16 U/L 6-55 347) Renewable Energy Trader ID - ALBINO MCBC W/PLT COUNT & AUTO [id number] 07:26:00 Test Item Value Reference Range Interpretation [...] PERCENT (BEAKER) (test code = 2801) POCT-GLUCOSE [id number] 07:24:00 Test Item Value Reference Range Interpretation Comments POC-GLUCOSE METER 111 mg/dL 70-110 H : TESTED A T [facility] 6720 (BEAKER) (test code = [facility], 1538) 77780: Renewable Energy Trader/Techni michael ID = [id number] for An Mary martin POCT-GLUCOSE [id number] 21:58:00 Test Item Value Reference Range Interpretation Comments POC-GLUCOSE METER 177 mg/dL 70-110 H : TESTED A T [facility] 6720 (BEAKER) (test code = [facility], 1538) 12357: Renewable Energy Trader/Techni michael ID = [id number] for Cr oss, Wangsie U/S, DRAINAGE, W/ CATH [id number] 18:56:00Reason for exam:->ACUTE CHOLECYSTITISKA[facility] : 1945 Sex: MFINAL REPORT Percutaneous cholecystostomy tube placement. History: Acute cholecystitis Cpc Coder: Leif Ojeda MD. Circulation Crew Leader: None. Modality: Ultrasound Anesthesia: Lidocaine local infiltration. Estimated blood loss: < 5 cc. SEDATION: Moderate sedation was administered.1 milligram of Versed and 50 micrograms of fentanyl IV was used for moderate sedation monitored under my direction. Total intraservice time of sedation was 10 minutes. The patient's vital signs were monitored throughout the procedure and recorded in the patient's medical record by the nurse. Technique: Discussion of risks, benefits, and alternatives were made with the Patient. They expressed understan ding and agreed to proceed. Informed written consent was obtained. A universal timeout was performedprior to starting the procedure. Standard sterile precautions [...] the gallbladder lumen. Following sequential dilatation, an 8French locking pigtail drainage catheter was advanced into [...] to the laboratory Impression: Successful ultrasound-guided 8 Malagasy percutaneous transhepatic cholecystostomy placement as described above. Thank you for the opportunity to assist in the care of your patient. Signed: Leif Ojeda MDReport Verified Date/Time: 10/16/2020 18:56:16 Reading Location: [place] [address] Angio Body ReadingRoom HEPATIC FUNCTION [id number] 16:10:00 Test Item Value Reference Range Interpretation [...] (test code = 14 U/L 6-55 347) Renewable Energy Trader ID - DBOperator ID - DBCT, [id number] 11:13:00Unlisted Reason for Exam - Click Yes and Enter Reason Below->YesUnlisted Reason for Exam- >RUQ and epigastric pain with possible acute sylvia, eval for biliary pancreatitis and possible complications of pancreatitisWill this procedure require oral contrast?->No [facility] : 1945 Sex: MFINAL REPORT CT, ABDOMEN [...] Wiggins Verified Date/Time: 10/16/2020 11:13:59 Reading Location: [facility] B1 C013Y CT Body Reading Room Electronicallysigned by: PIOTR WIGGINS MD on 10/16/2020 11:13 AMPOCT-GLUCOSE [id number] 08:22:00 Test Item Value Reference Range Interpretation Comments POC-GLUCOSE METER 129 mg/dL 70-110 H : TESTED A T [facility] 6720 (BEAKER) (test code = [place] [place], 1538) 7[address]: Renewable Energy Trader/Techni michael ID = [id number] for MAGALY RODERA SHAHRIAR BASIC METABOLIC [id number] 07:09:00 Test Item Value Reference Range Interpretation [...] S NOT APPLICABLE FOR DIALYSIS PATIEN TS. Renewable Energy Trader ID - [id number] 07:09:00 Test Item Value Reference Range Interpretation Comments MAGNESIUM (BEAKER) (test code = 2.1 mg/dL 1.6-2.6 627) Renewable Energy Trader ID - [id number] 07:09:00 Test Item Value Reference Range Interpretation Comments PHOSPHORUS (BEAKER) (test code = 2.1 mg/dL 2.3-4.7 L 604) Renewable Energy Trader ID - BHAVINCBC W/PLT COUNT & AUTO [id number] 06:45:00 Test Item Value Reference Range Interpretation [...] (BEAKER) (test code = 2801) U/S, ABDOMINAL, [id number] 01:25:00Abdomen limited area? Add comment if clarification is needed.->Gall BladderReason for exam:->RUQ, epigastric pain; evaluate for biliary pancreatitis [facility] : 1945 Sex: MFINAL REPORT Exam: Limited [...] represent acute cholecystitis in the proper clinical setting.A HIDA scan may be performed to evaluate cystic duct patency as clinically warranted. No biliary ductal dilatation. Signed: Aly Lopes MDReport Verified Date/Time: 10/16/2020 01:25:51 Electronicallysigned by: ALY LOPES MD on 10/16/2020 01:25 AMPOCT-GLUCOSE [id number] 21:25:00 Test Item Value Reference Range Interpretation Comments POC-GLUCOSE METER 178 mg/dL 70-110 H : TESTED A T [facility] 6720 (BEAKER) (test code = [facility], 1538) 38900: Renewable Energy Trader/Techni michael ID = [id number] for DO VE, CHEKARA POCT-GLUCOSE [id number] 16:48:00 Test Item Value Reference Range Interpretation Comments POC-GLUCOSE METER 208 mg/dL 70-110 H : TESTED A T [facility] 6720 (BEAKER) (test code = [facility], 1538) 68301: Renewable Energy Trader/Techni michael ID = [id number] for RO DGERS, JAMECA POCT-GLUCOSE [id number] 13:01:00 Test Item Value Reference Range Interpretation Comments POC-GLUCOSE METER 251 mg/dL 70-110 H : TESTED A T [facility] 6720 (BEAKER) (test code = [facility], 1538) 69433: Renewable Energy Trader/Techni michael ID = [id number] for RO DGERS, JAMECA SARS-COV2/RT-PCR ([facility])2020-10-15 12:38:00 Test Item Value Reference Range Interpretation Comments SARS-COV2/RT-PCR (test Negative Not Detected, Negative, code = 3930953) See external report for linked test SARS-COV-2 PERFORMING LAB [facility] DANNY (test code = 6487033) Negative result for this test determines that [...] of the Act.Fact Sheet for Healthcare Prov iders:https://www.Atticous.Velocify/sites/default/files/product/documents/Fact_Sheet_HC _Vnkkxlscs_Mjdo_MEJD-DhP-0.pdfFact Sheet for Healthcare Patients:https://www.Attic[employer]oc[employer]/sites/default/files/product/docume nts/Rvzr_Ydgup_Tynzpthk_Bdce_FRIU-IeV-7.pdfPerforming Laboratory:[facility], [place] [id number] 12:14:00 Test Item Value Reference Range Interpretation Comments LIPASE (BEAKER) (test code = 749) 10 U/L 8-78 Renewable Energy Trader ID - DBBLOOD GAS, [id number] 08:49:00 Test Item Value Reference Range Interpretation [...] (BEAKER) (test code = 1819) 21.0 POCT-GLUCOSE [id number] 08:06:00 Test Item Value Reference Range Interpretation Comments POC-GLUCOSE METER 214 mg/dL 70-110 H : TESTED A T [facility] 6720 (BEAKER) (test code = [facility], 1538) 70594: Renewable Energy Trader/Techni michael ID = [id number] for RO VIOLARAJINDER GIRARDEMMA RAD, CHEST, 1 VIEW, NON [id number] 07:03:00Reason for exam:->FeverShould this be performed at the bedside?->Yes [facility] : 1945 Sex: MFINAL REPORT TECHNIQUE: Frontal [...] Pulmonary venous congestion. Ca d: Margie Foster MDReport Verified Date/Time: 10/15/2020 07:03:46 Reading Location: [place] [address]X Ortho Consult Reading Room LACTIC ACID, [id number] 06:11:00 Test Item Value Reference Range Interpretation Comments LACTATE BLOOD VENOUS (2) (BEAKER) 0.90 mmol/L 0.50-2.20 (test code = 2872) Renewable Energy Trader ID - DBCBC W/PLT COUNT & AUTO [id number] 06:01:00 Test Item Value Reference Range Interpretation [...] PERCENT (BEAKER) (test code = 2801) POCT-GLUCOSE [id number] 00:46:00 Test Item Value Reference Range Interpretation Comments POC-GLUCOSE METER 150 mg/dL 70-110 H : TESTED A T [facility] 6720 (BEAKER) (test code = [facility] [place], 1538) 13247: Renewable Energy Trader/Techni michael ID = [id number] for JENNIFER CRAFT URINALYSIS W/ [id number] 00:42:00 Test Item Value Reference Range Interpretation [...] = 1521) SOURCE(BEAKER) (test code = 2795) Renewable Energy Trader ID - [auto]Renewable Energy Trader ID - techPOCT-GLUCOSE [id number] 16:26:00 Test Item Value Reference Range Interpretation Comments POC-GLUCOSE METER 121 mg/dL 70-110 H : TESTED A T [facility] 6720 (BEAKER) (test code = [place], 1538) 60617: Renewable Energy Trader/Techni michael ID = [id number] for Magan grant (pca2) Zoila HIGH SENSITIVITY TROPONIN [id number] 11:57:00 Test Item Value Reference Range Interpretation Comments HIGH SENSITIVITY 29 pg/ml See_Comment [Automated message] TROPONIN I (test code = The system which [id number]) generated this result transmitted ref erence range: <=35. Th e reference range was not used to int erpret this result as normal/abnormal . Renewable Energy Trader ID - ALBINO [facility] MECHANICAL SYSTEMS DESIGN ENGINEER STAT High Sensitivity Troponin-I results should be used in conjunction with other diagnostic information such as ECG, clinical observations and information, and patient symptoms to aid in the diagnosis of CA.POCT-GLUCOSE [id number] 11:04:00 Test Item Value Reference Range Interpretation Comments POC-GLUCOSE METER 137 mg/dL 70-110 H : TESTED A T [facility] 6720 (BEAKER) (test code = [place], 1538) 26393: Renewable Energy Trader/Techni michael ID = [id number] for Pa juanita (pca2), Zoila RAPID DRUG SCREEN, [id number] 10:57:00 Test Item Value Reference Range Interpretation [...] situations. Chain of custody not maintained. Some uoxq-xgt-fyexthv medications, as well as adulterants, may cause inaccurate results. Clinical correlation should be applied. A more comprehensive drug screen or confirmation of a detected drug may be performed upon request.Renewable Energy Trader ID - ALBINO Angierator ID - [auto]CT, BRAIN, WITHOUT [id number] 10:42:00Unlisted Reason for Exam - Click Yes and Enter Reason Below->YesUnlisted Reason for Exam->R SDH frontoparietal convexity. [facility] : 1945 Sex: MFINAL REPORT CT, BRAIN, [...] ed message] code = 370) The system Spotwise generated this result transmitted ref erence range: [...] S NOT APPLICABLE FOR DIALYSIS PATIEN TS. Renewable Energy Trader ID - ALBINO [id number] 07:47:00 Test Item Value Reference Range Interpretation Comments MAGNESIUM (BEAKER) (test code = 2.2 mg/dL 1.6-2.6 627) Renewable Energy Trader ID - ALBINO [id number] 07:47:00 Test Item Value Reference Range Interpretation Comments PHOSPHORUS (BEAKER) (test code = 2.3 mg/dL 2.3-4.7 604) Renewable Energy Trader ID - ALBINO MHEPATIC FUNCTION [id number] 07:47:00 Test Item Value Reference Range Interpretation [...] (test code = 29 U/L 6-55 347) Renewable Energy Trader ID - ALBINO MHIGH SENSITIVITY TROPONIN [id number] 07:30:00 Test Item Value Reference Range Interpretation Comments HIGH SENSITIVITY 27 pg/ml See_Comment [Automated message] TROPONIN I (test code = The system which [id number]) generated this result transmitted ref erence range: <=35. Th e reference range was not used to int erpret this result as normal/abnormal . Renewable Energy Trader ID - ALBINO MThe MECHANICAL SYSTEMS DESIGN ENGINEER STAT High Sensitivity Troponin-I results should be used in conjunction with other diagnostic information such as ECG, clinical observations and information, and patient symptoms to aid in the diagnosis of CA.[id number] 07:13:00 Test Item Value Reference Range Interpretation Comments PARTIAL THROMBOPLASTIN TIME 32.0 seconds 22.5-36.0 (BEAKER) (test code = 760) [id number] 07:12:00 Test Item Value Reference Range Interpretation Comments FIBRINOGEN LEVEL (BEAKER) (test 470 mg/dl 225-434 H code = 658) CBC W/PLT COUNT & AUTO [id number] 07:11:00 Test Item Value Reference Range Interpretation [...] PERCENT (BEAKER) (test code = 2801) POCT-GLUCOSE [id number] 07:02:00 Test Item Value Reference Range Interpretation Comments POC-GLUCOSE METER 151 mg/dL 70-110 H : TESTED A T [facility] 6720 (BEAKER) (test code = [facility], 1538) 81957: Renewable Energy Trader/Techni michael ID = [id number] for JENNIFER CRAFT POCT-GLUCOSE [id number] 06:48:00 Test Item Value Reference Range Interpretation Comments POC-GLUCOSE METER 156 mg/dL 70-110 H : TESTED A T [facility] 6720 ([facility]) (test code = [facility], 1538) 38434: Renewable Energy Trader/Techni michael ID = [id number] for KLEVER CAMARA VITAMIN D, [id number] 20:23:00 Test Item Value Reference Range Interpretation Comments VITAMIN D 25-OH ([facility]) (test 51.9 ng/mL 6.6-49.9 H code = 2764) Effective 02/12/2017: Reference Range ChangeNew: 6.6-49.9 ng/mL Previous: 13.0- 47.8 ng/mLRecommendedVitamin D Target Range: 30.0-40.0 ng/mLOperator ID - DB [id number] 19:35:00 Test Item Value Reference Range Interpretation Comments FERRITIN (BEAKER) (test code = 135.65 ng/mL 5.00-275.00 361) Renewable Energy Trader ID - BRANDON CVITAMIN B12 AND [id number] 19:35:00 Test Item Value Reference Range Interpretation Comments VITAMIN B12 1504 pg/mL 213-816 H (BEAKER) (test code = 774) FOLATE (BEAKER) 19.30 ng/mL See_Comment [Automated message] (test code = 362) The system which generated this result transmitted ref erence range: >=7.00. The reference range was not used to interpr et this result as normal/abnormal . Renewable Energy Trader ID - EDASIOperator ID - BRANDON CPOCT-GLUCOSE [id number] 12:22:00 Test Item Value Reference Range Interpretation Comments POC-GLUCOSE METER 181 mg/dL 70-110 H : TESTED A T [facility]20 (BEAKER) (test code [facility], = 1538) 03318: Renewable Energy Trader/Techni michael ID = [id number] for KAI GANegra, ANAEREDA POCT-GLUCOSE [id number] 07:53:00 Test Item Value Reference Range Interpretation Comments POC-GLUCOSE METER 119 mg/dL 70-110 H : [facility] (BEAKER) (test [facility], = 1538) 48945: Renewable Energy Trader/Techni michael ID = [id number] for FARHANA GARCIA BASIC METABOLIC [id number] 07:20:00 Test Item Value Reference Range Interpretation [...] S NOT APPLICABLE FOR DIALYSIS PATIEN TS. Renewable Energy Trader ID - [id number] 07:20:00 Test Item Value Reference Range Interpretation Comments MAGNESIUM (BEAKER) (test code = 2.2 mg/dL 1.6-2.6 627) Renewable Energy Trader ID - [id number] 07:20:00 Test Item Value Reference Range Interpretation Comments PHOSPHORUS (BEAKER) (test code = 4.0 mg/dL 2.3-4.7 604) Renewable Energy Trader ID - EDASIIRON, TIBC, % SAT. (WITHOUT FERRITIN)2020-07-07 06:52:00 Test Item Value Reference Range Interpretation Comments IRON (BEAKER) (test code = 547) 75.0 ug/dL 40.0-160.0 TOTAL IRON BINDING CAPACITY 261 ug/dL 250-450 (BEAKER) (test code = 769) IRON % SATURATION (2) (BEAKER) 29 % 20-55 (test code = 2590) Renewable Energy Trader ID - EDASICBC W/PLT COUNT & AUTO [id number] 06:47:00 Test Item Value Reference Range Interpretation [...] PERCENT (BEAKER) (test code = 2801) POCT-GLUCOSE [id number] 11:33:00 Test Item Value Reference Range Interpretation Comments POC-GLUCOSE METER 135 mg/dL 70-110 H : TESTED A T [facility] 6720 (BEAKER) (test code = [place] [place], 1538) 14684: Renewable Energy Trader/Techni michael ID = [id number] for Dolly nguyen CT, BRAIN, WITHOUT [id number] 09:48:00Unlisted Reason for Exam - Click Yes and Enter Reason Below->YesUnlisted Reason for Exam->SDH [facility] : 1945 Sex: MFINAL REPORT CT Head [...] has decreased. Signed: Case Abrams MDReport Verified Date/Time:07/06/2020 09:48:25 Reading Location: [address] Neuro Reading Room POCT-GLUCOSE [id number] 06:37:00 Test Item Value Reference Range Interpretation Comments POC-GLUCOSE METER 137 mg/dL 70-110 H : TESTED A T [facility] 6720 (BEAKER) (test code = [place] [place], 1538) 42702: Renewable Energy Trader/Techni michael ID = [id number] for ELYSE MARLOW BASIC METABOLIC [id number] 04:16:00 Test Item Value Reference Range Interpretation [...] S NOT APPLICABLE FOR DIALYSIS PATIEN TS. Renewable Energy Trader ID - ALBINO [id number] 04:16:00 Test Item Value Reference Range Interpretation Comments MAGNESIUM (BEAKER) (test code = 2.0 mg/dL 1.6-2.6 627) Renewable Energy Trader ID - ALBINO [id number] 04:16:00 Test Item Value Reference Range Interpretation Comments PHOSPHORUS (BEAKER) (test code = 2.6 mg/dL 2.3-4.7 604) Renewable Energy Trader ID - ALBINO MCBC W/PLT COUNT & AUTO [id number] 03:46:00 Test Item Value Reference Range Interpretation [...] (test code = 414) MONOCYTES ABSOLUTE COUNT (AKER) 0.61 K/ L 0.30-0.82 (test code = 415) EOSINOPHILS ABSOLUTE COUNT 0.43 K/ L 0.04-0.54 (AKER) (test code = 416) BASOPHILS ABSOLUTE COUNT (AKER) 0.21 K/ L 0.01-0.08 H (test code = 417) IMMATURE GRANULOCYTES-RELATIVE 2 % 0-1 H PERCENT ([facility]) (test code = 2801) POCT-GLUCOSE [id number] 00:34:00 Test Item Value Reference Range Interpretation Comments POC-GLUCOSE METER 115 mg/dL 70-110 H : TESTED A T [facility] 6720 ([facility]) (test code = [facility], 1538) 76806: Renewable Energy Trader/Techni michael ID = [id number] for Maryan Mcfarlane POCT-GLUCOSE [id number] 17:25:00 Test Item Value Reference Range Interpretation Comments POC-GLUCOSE METER 111 mg/dL 70-110 H : TESTED A T [facility] 6720 ([facility]) (test code = [facility], 1538) 78616: Renewable Energy Trader/Techni michael ID = [id number] for St e[place], Dolly POCT-GLUCOSE [id number] 12:32:00 Test Item Value Reference Range Interpretation Comments POC-GLUCOSE METER 157 mg/dL 70-110 H : Notified RN/MD: ([facility]) (test code = TESTED AT [facility] 6720 1538) [facility], [address]: Renewable Energy Trader/Techni michael ID = [id number] for St eptoe, Dolly TROPONIN [id number] 07:49:00 Test Item Value Reference Range Interpretation Comments TROPONIN I ([facility]) (test code = 0.01 ng/mL 0.00-0.03 397) [...] failure, acidosis, acute neurological disease, and persistent tachyarrhythmia.Renewable Energy Trader ID - ROSIANGBASIC METABOLIC [id number] 03:30:00 Test Item Value Reference Range Interpretation [...] S NOT APPLICABLE FOR DIALYSIS PATIEN TS. Renewable Energy Trader ID - ALBINO [id number] 03:30:00 Test Item Value Reference Range Interpretation Comments MAGNESIUM (BEAKER) (test code = 2.1 mg/dL 1.6-2.6 627) Renewable Energy Trader ID - ALBINO [id number] 03:30:00 Test Item Value Reference Range Interpretation Comments PHOSPHORUS (BEAKER) (test code = 2.3 mg/dL 2.3-4.7 604) Renewable Energy Trader ID - ALBINO MCBC W/PLT COUNT & AUTO [id number] 03:20:00 Test Item Value Reference Range Interpretation [...] PERCENT (BEAKER) (test code = 2801) POCT-GLUCOSE [id number] 00:09:00 Test Item Value Reference Range Interpretation Comments POC-GLUCOSE METER 108 mg/dL 70-110 : TESTED A T [facility] 6720 (BEAKER) (test code = [place], 1538) 06[address]: Renewable Energy Trader/Techni michael ID = [id number] for ELYSE MRALOW POCT-GLUCOSE [id number] 17:45:00 Test Item Value Reference Range Interpretation Comments POC-GLUCOSE METER 108 mg/dL 70-110 : TESTED A T [facility] 6720 (BEAKER) (test code = [facility], 1538) 30005: Renewable Energy Trader/Techni michael ID = [id number] for ISMAEL GRAMAJO BASIC METABOLIC [id number] 11:59:00 Test Item Value Reference Range Interpretation [...] S NOT APPLICABLE FOR DIALYSIS PATIEN TS. Renewable Energy Trader ID - SMPOCT-GLUCOSE [id number] 11:46:00 Test Item Value Reference Range Interpretation Comments POC-GLUCOSE METER 149 mg/dL 70-110 H : TESTED A T [facility] 6720 (BEAKER) (test code = [facility], 1538) 90232: Renewable Energy Trader/Techni michael ID = [id number] for Wi lliams, Irene HEMOGLOBIN AND [id number] 11:37:00 Test Item Value Reference Range Interpretation Comments HEMOGLOBIN (BEAKER) (test code = 9.2 GM/DL 13.7-17.5 L 410) HEMATOCRIT (BEAKER) (test code = 29.3 % 40.1-51.0 L 411) Renewable Energy Trader ID - [id number] KINASE (CK)2020-07-04 10:38:00 Test Item Value Reference Range Interpretation Comments CREATINE KINASE TOTAL (BEAKER) (test 71 U/L 29-200 code = 380) Renewable Energy Trader ID - ALBINO MPOCT-GLUCOSE [id number] 08:00:00 Test Item Value Reference Range Interpretation Comments POC-GLUCOSE METER 105 mg/dL 70-110 : [facility] (BEAKER) (test code = [place], 1538) [address]: Renewable Energy Trader/Techni michael ID = [id number] for LL ISMAEL CONTEH BASIC METABOLIC [id number] 03:45:00 Test Item Value Reference Range Interpretation [...] S NOT APPLICABLE FOR DIALYSIS PATIEN TS. Renewable Energy Trader ID - [id number] 03:45:00 Test Item Value Reference Range Interpretation Comments MAGNESIUM (BEAKER) (test code = 2.1 mg/dL 1.6-2.6 627) Renewable Energy Trader ID - [id number] 03:45:00 Test Item Value Reference Range Interpretation Comments PHOSPHORUS (BEAKER) (test code = 2.9 mg/dL 2.3-4.7 604) Renewable Energy Trader ID - SMPROTHROMBIN TIME/[id number] 03:37:00 Test Item Value Reference Range Interpretation Comments PROTIME (BEAKER) 14.7 seconds 11.9-14.2 H (test code = 759) INR (BEAKER) (test 1.18 See_Comment [Automat ed message] code = 370) The system Spotwise generated this result transmitted ref erence range: <=5.90. The reference range was not used to int erpret this result as normal/abnormal . Effective 09/30/2018: PT Reference Range ChangeNew: 11.9-14.2 Previous: 11.7- 14.7RECOMMENDED COUMADIN/WARFARIN INR THERAPY RANGESSTANDARD DOSE: 2.0-3.0 Includes: PROPHYLAXIS for venous thrombosis, systemic embolization; TREATMENT for venous thrombosis and/or pulmonary embolus.HIGH RISK: Target INR is 2.5-3.5 for patients wiht mechanical heart valves.[id number] 03:37:00 Test Item Value Reference Range Interpretation Comments PARTIAL THROMBOPLASTIN TIME 31.1 seconds 22.5-36.0 (BEAKER) (test code = 760) CBC W/PLT COUNT & AUTO [id number] 03:34:00 Test Item Value Reference Range Interpretation [...] (BEAKER) (test code = 2801) HEMOGLOBIN AND [id number] 21:51:00 Test Item Value Reference Range Interpretation Comments HEMOGLOBIN (BEAKER) (test code = 9.1 GM/DL 13.7-17.5 L 410) HEMATOCRIT (BEAKER) (test code = 28.6 % 40.1-51.0 L 411) Renewable Energy Trader ID - 6000POCT-GLUCOSE [id number] 21:44:00 Test Item Value Reference Range Interpretation Comments POC-GLUCOSE METER 158 mg/dL 70-110 H : TESTED A T [facility] 67 ([facility]) (test code = [facility], 153) 94133: Renewable Energy Trader/Techni michael ID = [id number] for TRACY JOHNSONMASON ELYSE POCT-GLUCOSE [id number] 16:56:00 Test Item Value Reference Range Interpretation Comments POC-GLUCOSE METER 144 mg/dL 70-110 H : Notified RN/MD: ([facility]) (test code = TESTED AT [facility] 6720 1538) [facility], [address]: Renewable Energy Trader/Techni michael ID = [id number] for ISMAEL GRAMAJO THROMBOELASTOGRAPH (TEG)2020-07-03 13:35:00 Test [...] 0.0-5.0 code = 1414) CT, BRAIN, WITHOUT [id number] 08:29:00Unlisted Reason for Exam - Click Yes and Enter Reason Below->No [facility] CENTER[facility]: [facility]A [facility]CH : 1945 Sex: MFINAL REPORT CT Head [...] the time of dictation. Signed: Case Abrams MDReport Verified Date/Time: 07/03/2020 08:29:18 Reading Location: [facility] C013V Neuro Reading Room HEMOGLOBIN [id number] 08:21:00 Test Item Value Reference Range Interpretation Comments HEMOGLOBIN A1C (BEAKER) (test code = 5.7 % 4.3-6.1 368) [id number] 07:19:00 Test Item Value Reference Range Interpretation Comments MAGNESIUM (BEAKER) 2.3 mg/dL 1.6-2.6 Specimen slightly (test code = 627) hemolyzed Renewable Energy Trader ID - ALBINO [id number] 07:19:00 Test Item Value Reference Range Interpretation Comments PHOSPHORUS (BEAKER) 2.2 mg/dL 2.3-4.7 L Specimen slightly (test code = 604) hemolyzed Renewable Energy Trader ID - ALBINO MBASIC METABOLIC [id number] 05:56:00 Test Item Value Reference Range Interpretation [...] S NOT APPLICABLE FOR DIALYSIS PATIEN TS. [employer] ID - ALBINO MCBC W/PLT COUNT & AUTO [id number] 05:06:00 Test Item Value Reference Range Interpretation [...] (test code = 2801) TSH/FREE T4 IF [id number] 04:35:00 Test Item Value Reference Range Interpretation Comments THYROID STIMULATING HORMONE 0.793 uIU/mL 0.350-4.940 (BEAKER) (test code = 772) [employer] ID - ALBINO MBASIC METABOLIC [id number] 04:21:00 Test Item Value Reference Range Interpretation [...] S NOT APPLICABLE FOR DIALYSIS PATIEN TS. [employer] ID - ALBINO [id number] 04:19:00 Test Item Value Reference Range Interpretation Comments MAGNESIUM (BEAKER) (test code = 1.4 mg/dL 1.6-2.6 L 627) [employer] ID - ALBINO MLIPID [id number] 04:19:00 Test Item Value Reference Range Interpretation Comments TRIGLYCERIDES (BEAKER) (test code = 73 mg/dL 540) CHOLESTEROL (BEAKER) (test code = 70 mg/dL 631) HDL CHOLESTEROL (BEAKER) (test code 20 mg/dL = 976) LDL CHOLESTEROL CALCULATED (RISAAKER) 35 mg/dL (test code = 633) Triglyceride Reference Range: Low Risk <150 Borderline 150-199 High Risk 200-499 Very High Risk >=500Cholesterol Reference Range: Low Risk <200 Borderline 200-239 High Risk >240HDL Cholesterol Reference Range: Low Risk >=60 High Risk <40LDL Cholesterol Reference Range: Optimal <100 Near Optimal 100-129 Borderline 130-159 High 160-189 Very High >=190 [employer] ID - ALBINO [id number] 04:19:00 Test Item Value Reference Range Interpretation Comments LIPASE (RISAAKER) (test code = 749) 5 U/L 8-78 L [employer] ID - ALBINO MSARS-COV2/RT-PCR ([facility])2020-07-03 01:30:00 Test Item Value Reference Range Interpretation Comments SARS-COV2/RT-PCR (test code Negative Not Detected, Negative, = 0748762) See external report for linked test SARS-COV-2 PERFORMING LAB [facility] (test code = 2218833) Negative results do not preclude SARS-CoV-2 infection [...] of the Act.Fact Sheet for Healthcare Pro viders:https://www.Drive.SG.Velocify/Documents/Xpert%20Xpress%20SARS%20CoV-2/Fact%20Sh eets/302-3802%78POHN-CDN-6%20HEALTHCARE%20PROVIDERS%20FACT%20SHEET.pdfFact Sheet for Healthcare Patients:https://www.Crowdfynd/Documents/Xpert%20Xpress%20SARS%20CoV-2/Fact%20Sheets/302-3801%20SARS-COV -2%20PATIENT%20FACT%20SHEET.pdfPerforming Laboratory:[place] [address], [place] [address]CXW, CHEST, 1 VIEW, NON [id number] 23:20:00Reason for exam:->preopShould this be performed at the bedside?->YesKA[facility] : 1945 Sex: MFINAL REPORT Chest one [...] pg/mL 0-100 H (test code = 700) [employer] ID - DBBASIC METABOLIC [id number] 22:15:00 Test Item Value Reference Range Interpretation [...] S NOT APPLICABLE FOR DIALYSIS PATIEN TS. [employer] ID - [id number] 22:12:00 Test Item Value Reference Range Interpretation Comments FIBRINOGEN LEVEL (BEAKER) (test 286 mg/dl 225-434 code = 658) [id number] 22:12:00 Test Item Value Reference Range Interpretation Comments PARTIAL THROMBOPLASTIN TIME 32.6 seconds 22.5-36.0 (BEAKER) (test code = 760) PROTHROMBIN TIME/[id number] 22:11:00 Test Item Value Reference Range Interpretation Comments PROTIME (BEAKER) 14.8 seconds 11.9-14.2 H (test code = 759) INR (BEAKER) (test 1.20 See_Comment [Automat ed message] code = 370) The system Spotwise generated this result transmitted ref erence range: [...] mechanical heart valves.CBC W/PLT COUNT & AUTO [id number] 22:03:00 Test Item Value Reference Range Interpretation [...] PERCENT (BEAKER) (test code = 2801) TROPONIN [id number] 21:54:00 Test Item Value Reference Range Interpretation [...] failure, acidosis, acute neurological disease, and persistent tachyarrhythmia.[employer] ID - DBCOMPREHENSIVE METABOLIC [id number] 21:48:00 Test Item Value Reference Range Interpretation [...] S NOT APPLICABLE FOR DIALYSIS PATIEN TS. [employer] ID - [id number] 21:48:00 Test Item Value Reference Range Interpretation Comments MAGNESIUM (BEAKER) (test code = 2.1 mg/dL 1.6-2.6 627) [employer] ID - [id number] 21:48:00 Test Item Value Reference Range Interpretation Comments PHOSPHORUS (BEAKER) (test code = 2.7 mg/dL 2.3-4.7 604) [employer] ID - DBCBC W/PLT COUNT & AUTO [id number] 21:32:00 Test Item Value Reference Range Interpretation [...] 0-1 H PERCENT (BEAKER) (test code = 2052)
[2022-10-07] MEDS ORDERED: MAGNES/ALUMIN/SIMET 30ML UCUP ONE (11:22)
[2022-10-07] MEDS ORDERED: PANTOPRAZOLE 40 MG INJ ONE ×2 (11:23→12:06)
[2022-10-07] MEDS ORDERED: ONDANSETRON 4 MG/2 ML VIAL ONE (11:23)
[2022-10-07] MEDS ORDERED: MORPHINE 2 MG/ML SYR ONE (11:23)
[2022-10-07] MEDS ORDERED: ASPIRIN 81 MG CHEWABLE TABLET ONE (11:23)
[2022-10-07] MEDS ORDERED: NA CHLORIDE 0.9% 1,000 ML ONE (11:24)
[2022-10-07] MEDS ORDERED: LIDOCAINE VISCOUS 2% SOLN 15 ML UDC ONE (11:24)
[2022-10-07 11:36] LABS: MCV 86.4 fL (80-100); MPV 7.9 fL (7.6-11.3); RBC Red Blood Cell Count 2.13 M/uL (4.33-5.43)
[2022-10-07 11:40] LABS: Protime INR 1.12
[2022-10-07 11:58] LABS: Hematocrit 18.4 % (39.6-49.0)
[2022-10-07 11:59] LABS: Albumin 2.8 g/dL (3.4-5.0); Bilirubin Direct 0.1 mg/dL (0-0.2); Bilirubin Indirect, Calculated 0.3 mg/dL (0.2-0.8); Bilirubin Total 0.4 mg/dL (0.2-1.0); Potassium 4.2 mEq/L (3.5-5.1); Protein, Total 5.9 g/dL (6.4-8.2); Troponin High Sensitivity 23.7 pg/mL (<58.9)
--- NOTE | 2022-10-07 12:20 | ER ---
Nurse's Notes [facility] Name: Farhat Burch Sr Age: 77 yrs Sex: Male : 1945 Arrival Date: 10/07/2022 Time: 10:42 Bed 3 Private MD: Diagnosis: Chest pain, unspecified;Angina pectoris, unspecified;Anemia, unspecified;Human immunodeficiency virus [HIV] disease;Dyspnea Presentation: 10/07 10:48 Chief complaint: EMS states: CHEST PAIN AFTER WALKING TO STORE FOR CIGARETTES. bp Coronavirus screen: At this time, the client does not indicate any symptoms associated with coronavirus-19. Ebola Screen: No symptoms or risks identified at this time. Initial Sepsis Screen: Does the patient meet any 2 criteria? No. Patient's initial sepsis screen is negative. Does the patient have a suspected source of infection? No. Patient's initial sepsis screen is negative. Risk Assessment: Do you want to hurt yourself or someone else? Patient reports no desire to harm self or others. Onset of symptoms was October 07, 2022 at 10:00. Care prior to arrival: Medication(s) given: ASA, 81 mg, x 4, IV initiated. 20 GA, in the left antecubital area, Glucose check: 220. 10:48 Method Of Arrival: EMS: [facility] bp 10:48 Acuity: JESSE 3 bp Triage Assessment: 10:50 General: Appears in no apparent distress. Behavior is cooperative, appropriate for age, bp anxious. Pain: Complains of pain in chest. EENT: No deficits noted. Neuro: Level of Consciousness is awake, alert, obeys commands, Oriented to Appropriate for age. Cardiovascular: Rhythm is sinus rhythm. Respiratory: Reports shortness of breath on exertion. GI: No signs and/or symptoms were reported involving the gastrointestinal system. : No signs and/or symptoms were reported regarding the genitourinary system. Derm: No deficits noted. Musculoskeletal: No deficits noted. Historical: - Allergies: 10:50 No Known Drug Allergies; bp - Home Meds: 10:50 albuterol sulfate 200 mcg Inhl cap 90 mcg/Actuation as needed [Active]; aripiprazole 5 bp mg Oral tab 0.5 tab once daily [Active]; atorvastatin 40 mg Oral tab 1 tab once daily [Active]; buspirone 10 mg Oral tab 2 tabs 3 times per day for Generalized Anxiety Disorder [Active]; Creon 24,000-76,000 -120,000 unit Oral cpDR 3 cap 3 times per day [Active]; cyanocobalamin (vitamin B-12) 1,000 mcg Oral tab daily [Active]; docusate sodium 50 mg Oral tab 50 mg nightly for constipation [Active]; duloxetine 60 mg Oral CDRS 2 caps once daily [Active]; finasteride 1 mg Oral tab 1 tab once daily [Active]; fluticasone propionate 50 mcg/actuation nasal spsn 1 spray 2 times per day [Active]; folic acid 1 mg Oral tab 1 tab once daily [Active]; gabapentin 300 mg Oral cap 1 cap nightly [Active]; lisinopril 10 mg Oral tab 1 tab once daily [Active]; trazodone 50 mg Oral tab at bedtime [Active]; oxybutynin chloride 5 mg Oral tr24 3 times a day for bladder [Active]; omeprazole 20 mg Oral cpDR 2 caps once daily [Active]; - PMHx: 10:50 Hypertension; resolved; Hyperlipidemia; HIV positive; Diabetes - IDDM; Depression; bp COPD; neely esophagus; Anxiety; angina pectoris; Anemia; - Immunization history:: Adult Immunizations up to date. - Social history:: Smoking status: Patient reports the use of cigarette tobacco products, unknown amount. Screenin:09 [facility] ED Fall Risk Assessment (Adult) History of falling in the last 3 months, bp including since admission No falls in past 3 months (0 pts). Abuse screen: Denies threats or abuse. Denies injuries from another. Nutritional screening: No deficits noted. Tuberculosis screening: No symptoms or risk factors identified. Assessment: 10:45 General: SEE TRIAGE NOTE. bp 12:30 Reassessment: [facility]. bp 13:45 Reassessment: PT CONSENTED FOR PRBC. 1ST UNIT INFUSING. bp 14:48 Reassessment: REPORT TO [place] [facility]. TRANSPORT PENDING. bp 15:20 Reassessment: EMS AT FOR TRANSPORT. bp Vital Signs: 10:48 BP 104 / 55; Pulse 70; Resp 16; Temp 98; Pulse Ox 98% ; bp 12:00 BP 103 / 53; Pulse 67; Resp 17; Pulse Ox 98% ; bp 13:00 BP 108 / 74; Pulse 64; Resp 18; Pulse Ox 96% ; bp 14:00 BP 116 / 57; Pulse 69; Resp 16; Pulse Ox 98% ; bp 15:20 BP 129 / 54; Pulse 64; Resp 19; Pulse Ox 95% ; bp ED Course: 10:48 Patient arrived in ED. angy 10:48 Dhruv Colon MD is Attending Physician. angy 10:48 Danny Hernandez, RN is Primary Nurse. bp 10:49 Triage completed. bp 10:50 Arm band placed on. bp 10:50 Inserted saline lock: 20 gauge in left antecubital area, using aseptic technique. Blood bp collected. 12:38 initiated transfer to [facility], faxed chart to [place] er as requested by transfer center.bd 12:38 SARS-COV-2 Antigen Rapid Sent. nj1 12:46 XRAY Chest (1 view) In Process Unspecified. EDMS 14:09 Patient has correct armband on for positive identification. Bed in low position. Call bp light in reach. Side rails up X2. 14:13 PT accepted to [facility]; Ezequiel Woods is accepting physician and Ankita Benderal is Admin. 15:20 No provider procedures requiring assistance completed. Patient transferred, IV remains bp in place. Administered Medications: 11:18 Drug: NS 0.9% IV 1000 ml Route: IV; Rate: 125 ml/hr; Site: left antecubital; nj1 15:01 Follow up: IV Status: Infusion continued upon transfer bp 11:18 Drug: Aspirin PO Chewable Tablet 81 mg Route: PO; nj1 15:00 Follow up: Response: No adverse reaction bp 11:26 Drug: Pantoprazole IVP 40 mg Route: IVP; Site: left antecubital; nj1 15:01 Follow up: Response: No adverse reaction bp 11:28 Drug: Ondansetron IVP 4 mg Route: IVP; Site: left antecubital; nj1 15:00 Follow up: Response: No adverse reaction bp 11:30 Drug: morphine IVP or IV 2 mg Route: IVP; Infused Over: 4 mins; Site: left antecubital; nj1 15:00 Follow up: Response: No adverse reaction bp 11:30 Drug: GI Cocktail without - (Maalox PO Suspension 30 ml, Lidocaine Mucous nj1 Membrane Liquid 2 % 15 ml) Route: PO; 15:00 Follow up: Response: No adverse reaction bp 12:07 Drug: Pantoprazole IVP 40 mg Route: IVP; Site: left antecubital; bp 15:00 Follow up: Response: No adverse reaction bp 12:30 Drug: Pantoprazole IV 8 mg/hr Route: IV; Rate: 25 ml/hr; Site: left forearm; bp 15:00 Follow up: IV Status: Infusion continued upon transfer bp Medication: 15:21 VIS not applicable for this client. bp Outcome: 12:19 ER care complete, transfer ordered by MD. travis 15:20 Transferred by ground EMS bp 15:20 Condition: stable 15:20 Instructed on the need for transfer. 15:33 Patient left the ED. ko1 Signatures: Dispatcher MedHost EDMS Lara Duncan Corey, MD MD cha Peltier, Brian, RN RN bp Enedina Pimentel RN RN ko1 Kaitlin Garcia RN RN nj1
--- NOTE | 2022-10-07 12:20 | EDPHYS ---
Physician Documentation [facility] Name: Farhat Burch Sr Age: 77 yrs Sex: Male : 1945 Arrival Date: 10/07/2022 Time: 10:42 Bed 3 Private MD: ED Physician Dhruv Colon HPI: 10/07 10:57 This 77 yrs old Male presents to ER via EMS with complaints of CHEST PAIN, ON angy HOSPICE, COPD AND HIV. 10:57 The patient presents with. [facility] Historical: - Allergies: 10:50 No Known Drug Allergies; bp - Home Meds: 10:50 albuterol sulfate 200 mcg Inhl cap 90 mcg/Actuation as needed [Active]; aripiprazole 5 bp mg Oral tab 0.5 tab once daily [Active]; atorvastatin 40 mg Oral tab 1 tab once daily [Active]; buspirone 10 mg Oral tab 2 tabs 3 times per day for Generalized Anxiety Disorder [Active]; Creon 24,000-76,000 -120,000 unit Oral cpDR 3 cap 3 times per day [Active]; cyanocobalamin (vitamin B-12) 1,000 mcg Oral tab daily [Active]; docusate sodium 50 mg Oral tab 50 mg nightly for constipation [Active]; duloxetine 60 mg Oral CDRS 2 caps once daily [Active]; finasteride 1 mg Oral tab 1 tab once daily [Active]; fluticasone propionate 50 mcg/actuation nasal spsn 1 spray 2 times per day [Active]; folic acid 1 mg Oral tab 1 tab once daily [Active]; gabapentin 300 mg Oral cap 1 cap nightly [Active]; lisinopril 10 mg Oral tab 1 tab once daily [Active]; trazodone 50 mg Oral tab at bedtime [Active]; oxybutynin chloride 5 mg Oral tr24 3 times a day for bladder [Active]; omeprazole 20 mg Oral cpDR 2 caps once daily [Active]; - PMHx: 10:50 Hypertension; resolved; Hyperlipidemia; HIV positive; Diabetes - IDDM; Depression; bp COPD; neely esophagus; Anxiety; angina pectoris; Anemia; - Immunization history:: Adult Immunizations up to date. - Social history:: Smoking status: Patient reports the use of cigarette tobacco products, unknown amount. ROS: 10:58 Constitutional: Negative for fever, chills, and weight loss, Eyes: Negative for injury, angy pain, redness, and discharge, ENT: Negative for injury, pain, and discharge, Neck: Negative for injury, pain, and swelling, Respiratory: Negative for shortness of breath, cough, wheezing, and pleuritic chest pain, Abdomen/GI: Negative for abdominal pain, nausea, vomiting, diarrhea, and constipation, Back: Negative for injury and pain, : Negative for injury, bleeding, discharge, and swelling, MS/Extremity: Negative for injury and deformity, Skin: Negative for injury, rash, and discoloration, Neuro: Negative for headache, weakness, numbness, tingling, and seizure, Psych: Negative for depression, anxiety, suicide ideation, homicidal ideation, and hallucinations, Allergy/Immunology: Negative for hives, rash, and allergies, Endocrine: Negative for neck swelling, polydipsia, polyuria, polyphagia, and marked weight changes, Hematologic/Lymphatic: Negative for swollen nodes, abnormal bleeding, and unusual bruising. 10:58 Cardiovascular: Positive for chest pain, of the chest. Exam: 10:58 Constitutional: This is a well developed, well nourished patient who is awake, alert, angy and in no acute distress. Head/Face: Normocephalic, atraumatic. Eyes: Pupils equal round and reactive to light, extra-ocular motions intact. Lids and lashes normal. Conjunctiva and sclera are non-icteric and not injected. Cornea within normal limits. Periorbital areas with no swelling, redness, or edema. ENT: Nares patent. No nasal discharge, no septal abnormalities noted. Tympanic membranes are normal and external auditory canals are clear. Oropharynx with no redness, swelling, or masses, exudates, or evidence of obstruction, uvula midline. Mucous membranes moist. Neck: Trachea midline, no thyromegaly or masses palpated, and no cervical lymphadenopathy. Supple, full range of motion without nuchal rigidity, or vertebral point tenderness. No Meningismus. Chest/axilla: Normal chest wall appearance and motion. Nontender with no deformity. No lesions are appreciated. Cardiovascular: Regular rate and rhythm with a normal S1 and S2. No gallops, murmurs, or rubs. Normal PMI, no JVD. No pulse deficits. Respiratory: Lungs have equal breath sounds bilaterally, clear to auscultation and percussion. No rales, rhonchi or wheezes noted. No increased work of breathing, no retractions or nasal flaring. Abdomen/GI: Soft, non-tender, with normal bowel sounds. No distension or tympany. No guarding or rebound. No evidence of tenderness throughout. Back: No spinal tenderness. No costovertebral tenderness. Full range of motion. Male : Normal genitalia with no discharge or lesions. MS/ Extremity: Pulses equal, no cyanosis. Neurovascular intact. Full, normal range of motion. Neuro: Awake and alert, GCS 15, oriented to person, place, time, and situation. Cranial nerves II-XII grossly intact. Motor strength 5/5 in all extremities. Sensory grossly intact. Cerebellar exam normal. Normal gait. Psych: Awake, alert, with orientation to person, place and time. Behavior, mood, and affect are within normal limits. 10:58 Skin: Appearance: Color: pale, Temperature: normal temperature, Moisture: normal moisture, petechiae, not noted, ecchymosis, not noted, flushing, not noted, diaphoresis is not appreciated. 12:11 ECG was reviewed by the Attending Physician. angy 12:11 Abdomen/GI: Rectal exam: is unremarkable, Prostate: normal, rectal tone normal, Stool: normal, hemorrhoid(s), are not appreciated, mass, is not appreciated, swelling, is not appreciated, tenderness, is not appreciated, fecal impaction, is not appreciated, the exam is chaperoned by the nurse, Liver: no appreciated palpable abnormalities, Hernia: not appreciated. Vital Signs: 10:48 BP 104 / 55; Pulse 70; Resp 16; Temp 98; Pulse Ox 98% ; bp 12:00 BP 103 / 53; Pulse 67; Resp 17; Pulse Ox 98% ; bp 13:00 BP 108 / 74; Pulse 64; Resp 18; Pulse Ox 96% ; bp 14:00 BP 116 / 57; Pulse 69; Resp 16; Pulse Ox 98% ; bp 15:20 BP 129 / 54; Pulse 64; Resp 19; Pulse Ox 95% ; bp MDM: 10:48 Patient medically screened. angy 11:00 HEART Score: History: Moderately Suspicious (1), ECG: Significant ST-deviation (2), angy Age: > or = 65 years (2), Risk Factors: > or = 3 Risk factors for atherosclerotic disease (2), [Hypertension] [DM] [Active Smoker] [+ Family HX] Troponin: < or = 1 x Normal Limit (0). The patient was given aspirin in the Emergency Department. Differential diagnosis: coronary artery disease chest wall pain, pancreatitis, pericarditis, pleurisy, pneumonia, unstable angina, gastritis, non-specific abd pain, pancreatitis, Peptic Ulcer Disease. BREANNA Risk Score: 1 - patient's age is greater or equal to 65 years, 1 - Three or more CAD risk factors, 1- Known CAD, 1 - ASA use in past 7 days, 1 - Recent [<24hrs] Severe Angina, TOTAL SCORE = 5. Data reviewed: vital signs, nurses notes, lab test result(s), EKG, radiologic studies, plain films. Consideration of Admission/Observation Patient was admitted/placed on observation. Escalation of care including admission/observation considered. I considered the following discharge prescriptions or medication management in the emergency department Medications were administered in the Emergency Department. See MAR. Independent interpretation of the following test(s) in the Emergency Department EKG: See my EKG interpretation above. Test considered but Not performed: CT: NO CT CHEST , ABDOMINAL PAIN. Care significantly affected by the following chronic conditions: Diabetes, Hypertension, Chronic Obstructive Pulmonary Disease, HYPERLIPIDEMIA, HIV, DEPRESSION. 10/07 10:57 Order name: Basic Metabolic Panel; Complete Time: 12:10 [facility] 10/07 10:57 Order name: CBC with Diff [facility] 10/07 10:57 Order name: LFT's; Complete Time: 12:10 [facility] 10/07 10:57 Order name: Magnesium; Complete Time: 12:10 [facility] 10/07 10:57 Order name: NT PRO-BNP; Complete Time: 12:10 [facility] 10/07 10:57 Order name: PT-INR; Complete Time: 11:43 [facility] 10/07 10:57 Order name: Troponin HS; Complete Time: 12:10 [facility] 10/07 10:57 Order name: Lipase; Complete Time: 12:10 [facility] 10/07 11:56 Order name: Type And Screen [facility] 10/07 12:01 Order name: Manual Differential [facility] 10/07 12:07 Order name: Bb Add On bd 10/07 12:15 Order name: SARS-COV-2 Antigen Rapid bd 10/07 13:11 Order name: Packed RBC Leukored EDMD 10/07 14:14 Order name: Ferritin [facility] 10/07 10:57 Order name: XRAY Chest (1 view) [facility] 10/07 10:57 Order name: EKG; Complete Time: 10:58 [facility] 10/07 10:57 Order name: Cardiac monitoring; Complete Time: 11:24 [facility] 10/07 10:57 Order name: EKG - Nurse/Tech; Complete Time: 11:54 [facility] 10/07 10:57 Order name: IV Saline Lock; Complete Time: 11:24 [facility] 10/07 10:57 Order name: Labs collected and sent; Complete Time: 11:24 [facility] 10/07 10:57 Order name: O2 Per Protocol; Complete Time: 11:24 [facility] 10/07 10:57 Order name: O2 Sat Monitoring; Complete Time: 11:24 [facility] 10/07 11:56 Order name: Transfuse; Complete Time: 14:00 [facility] 10/07 12:08 Order name: IV Saline Lock - Large Bore; Complete Time: 12:08 [facility] EC:11 Rate is 81 beats/min. Rhythm is regular. QRS [place] is Normal. HI interval is normal. QRS angy interval is normal. QT interval is normal. No Q waves. T waves are Normal. No ST changes noted. Clinical impression: Abnormal EKG without significant change and No evidence of ischemia. Interpreted by me. Reviewed by me. Administered Medications: 11:18 Drug: NS 0.9% IV 1000 ml Route: IV; Rate: 125 ml/hr; Site: left antecubital; nj1 15:01 Follow up: IV Status: Infusion continued upon transfer bp 11:18 Drug: Aspirin PO Chewable Tablet 81 mg Route: PO; nj1 15:00 Follow up: Response: No adverse reaction bp 11:26 Drug: Pantoprazole IVP 40 mg Route: IVP; Site: left antecubital; nj1 15:01 Follow up: Response: No adverse reaction bp 11:28 Drug: Ondansetron IVP 4 mg Route: IVP; Site: left antecubital; nj1 15:00 Follow up: Response: No adverse reaction bp 11:30 Drug: morphine IVP or IV 2 mg Route: IVP; Infused Over: 4 mins; Site: left antecubital; nj1 15:00 Follow up: Response: No adverse reaction bp 11:30 Drug: GI Cocktail without - (Maalox PO Suspension 30 ml, Lidocaine Mucous nj1 Membrane Liquid 2 % 15 ml) Route: PO; 15:00 Follow up: Response: No adverse reaction bp 12:07 Drug: Pantoprazole IVP 40 mg Route: IVP; Site: left antecubital; bp 15:00 Follow up: Response: No adverse reaction bp 12:30 Drug: Pantoprazole IV 8 mg/hr Route: IV; Rate: 25 ml/hr; Site: left forearm; bp 15:00 Follow up: IV Status: Infusion continued upon transfer bp Disposition Summary: 10/07/22 12:19 Transfer Ordered Transfer Location: [facility] angy Reason: Higher level of care angy Condition: Fair angy Problem: new angy Symptoms: have improved angy Accepting Physician: TO [place](10/07/22 15:33) frankie Diagnosis - Chest pain, unspecified angy - Angina pectoris, unspecified angy - Anemia, unspecified angy - Human immunodeficiency virus [HIV] disease angy - Dyspnea angy Forms: - Medication Reconciliation Form angy - SBAR form angy Signatures: Dispatcher [employer] EDDhruv Coyne MD MD cha Peltier, Brian, RN RN bp Enedina Pimentel RN RN ko1 Anthony Haile MD MD rt Kaitlin Garcia RN RN nj1 Corrections: (The following items were deleted from the chart) 15:33 12:19 TO [place] angy david
[2022-10-07] MEDS ORDERED: PANTOPRAZOLE INJ 80 MG in NA CHLORIDE 0.9% 250 ML IV ONE (12:30)
--- NOTE | 2022-10-07 12:53 | RAD REPORT ---
EXAM DESCRIPTION: RAD - Chest Single View - 10/07/2022 12:44 pm CLINICAL HISTORY: CHEST PAIN Chest pain. COMPARISON: Chest Single View dated 09/27/2022; Chest Single View dated 09/23/2022; Chest Single View dated 09/22/2022; Chest Single View dated 07/08/2022 FINDINGS: Portable technique limits examination quality. Prominent emphysematous changes are present throughout the lungs. No focal infiltrate seen. The heart is normal in size. No displaced fractures. IMPRESSION: Prominent COPD. The USPSTF recommends annual screening for lung cancer with low-dose CT (LDCT) in adults aged 50 to 80 years who have a 20 pack-year smoking history and currently smoke or have quit within the past 15 years.
[2022-10-07 13:08] LABS: SARS-CoV-2 Antigen Rapid Res Negative (Negative)
[2022-10-07 13:35] LABS: Platelet Estimate DECR
[2022-10-07 13:36] LABS: Anisocytosis 1+; Blood Morphology Comment NOTED (NOT SEEN); Hypochromasia 2+; Poikilocytosis SLIGHT; Stomatocytes S; Teardrop Cell FEW
[2022-10-07] MEDS ORDERED: NA CHLORIDE 0.9% 250 ML ONE (13:47)
[2022-10-07 15:38] VITALS: TEMP 98
[2022-10-07 15:45] VITALS: BP 129/54; O2SAT 95
--- NOTE | 2022-10-09 07:22 | EKG ---
Test Date: 2022-10-07 Test Time: 11:35:59 Medical Transcription Editor: BP MEASUREMENT RESULTS: Intervals: Rate: 81 MD: 162 QRSD: 156 QT: 458 QTc: 532 Brooks: P: 63 MD: 162 QRS: 28 T: 91 INTERPRETIVE STATEMENTS: Normal sinus rhythm Left bundle branch block Abnormal ECG Compared to ECG 09/22/2022 19:03:55 Atrial premature complex(es) no longer present Electronically Signed On 10-09-22 07:15:21 CDT by Arnold Estes
== END 2022-10-07 15:33 ==
LOC: ER 10:42
PROC: 30233N1 Transfusion of Nonautologous Red Blood Cells into Peripheral Vein, Percutaneous Approach (ICD-10-PCS; principal; 2022-10-07)
DX: I20.9 Angina pectoris, unspecified (principal); D64.9 Anemia, unspecified; Z21 Asymptomatic human immunodeficiency virus [HIV] infection status; R06.00 Dyspnea, unspecified; Z20.822 Contact with and (suspected) exposure to COVID-19; Z72.0 Tobacco use; J44.9 Chronic obstructive pulmonary disease, unspecified; E11.9 Type 2 diabetes mellitus without complications
CPT/HCPCS: 96365; 96361; 93005; 85025; 80048; 36415; 86900; 83735; 86850; 85610; 86901; 80076; 86920; 84484; 83690; 83880; 71045; 96375; 99285; 96366; 87811; 36430; C9113 ×3; J2270; J2405; P9016; J7050 ×2; J7030